=== PATIENT | female | born 1960 | race Caucasian/White ===

== ENCOUNTER → 2016-12-23 | Outpatient (CLI) | payer BC, MEDICARE ==
--- NOTE | 2016-12-23 17:59 | CT ---
EXAMINATION TYPE: CT chest wo con DATE OF EXAM: 12/23/2016 5:34 PM COMPARISON: NONE HISTORY: Shortness of breath and cough CT DLP: 837 mGycm Automated exposure control for dose reduction was used. FINDINGS: Heart size is normal. Thoracic aorta is atheromatous. There is no evidence of aortic aneurysm. There is no evidence of a hilar mass. There are a few mediastinal lymph nodes that measure up to 1 cm. The lungs are clear of consolidation. There is no sign of a pulmonary mass. There is some subpleural linear density in the periphery of both lungs and more on the right side consistent with scarring and subsegmental atelectasis. There is no discrete pulmonary nodule. Thoracic spine is intact. There are sternal wires. IMPRESSION: SUBSEGMENTAL ATELECTASIS AND SCARRING IN THE PERIPHERY OF BOTH LUNGS. NO PULMONARY MASS. MODERATE ATH EROSCLEROTIC VASCULAR DISEASE.
== END | disposition home or self-care (01) ==
LOC: RADCTMAIN 17:17
PROVIDERS: ATTEND Family Medicine
DX: J44.9 Chronic obstructive pulmonary disease, unspecified (principal); J98.11 Atelectasis
CPT/HCPCS: 71250

== ENCOUNTER → 2017-09-06 | Outpatient (CLI) | payer BC, MEDICARE ==
--- NOTE | 2017-09-06 15:40 | CT ---
EXAMINATION TYPE: CT abdomen wo con DATE OF EXAM: 09/06/2017 COMPARISON: NONE HISTORY: Abdomen pain. CT DLP: 655 mGycm Examination of the solid and hollow viscera is limited given the lack of contrast. FINDINGS: LUNG BASES: No evidence for nodule. No evidence for infiltrate. LIVER/GB: Small gallstones are noted. No evidence for wall thickening or pericholecystic fluid. No sp doris-occupying hepatic lesion. Scattered hepatic granulomas seen. PANCREAS: No pancreatic mass identified. No inflammatory process seen. SPLEEN: No evidence for splenomegaly. No intrasplenic lesions seen. ADRENALS: No adrenal nodules identified. No evidence for thickening. KIDNEYS: Renal vascular calcifications are identified. No evidence for renal mass. No nephrolithiasis . No hydronephrosis. BOWEL: Appendix has a normal appearance. No evidence of bowel obstruction. No inflammatory process. Lymph nodes: No evidence for adenopathy greater than 1 cm. Abdominal aorta: Aortic bypass graft in place. Other: No significant abnormality. IMPRESSION: 1. NO ACUTE INTRA-ABDOMINAL PROCESS TO ACCOUNT FOR THE PATIENT'S SYMPTOMS. 2. CHOLELITHIASIS WITHOUT WALL THICKENING.
== END | disposition home or self-care (01) ==
LOC: RADCTMAIN 15:10
PROVIDERS: ATTEND Family Medicine
DX: K80.20 Calculus of gallbladder without cholecystitis without obstruction (principal)
CPT/HCPCS: 74150

== ENCOUNTER → 2017-11-18 | Outpatient (CLI) | payer BC, MEDICARE ==
--- NOTE | 2017-11-18 16:04 | XR ---
EXAMINATION TYPE: XR chest 2V DATE OF EXAM: 11/18/2017 COMPARISON: 2017 CT chest HISTORY: Cough and fatigue TECHNIQUE: Frontal and lateral views of the chest are obtained. FINDINGS: There is no focal air space opacity, pleural effusion, or pneumothorax seen. Post-CABG ch anges are seen without cardiomegaly. The osseous structures are intact. IMPRESSION: No acute cardiopulmonary process.
== END | disposition home or self-care (01) ==
LOC: RADXRYALE 15:03
PROVIDERS: ATTEND Physician Assistant Medical
DX: R05 Cough (principal); R53.83 Other fatigue
CPT/HCPCS: 71046

== ENCOUNTER 2017-12-27 08:48 | Day surgery (SDC) | payer BC, MEDICARE ==
[2017-12-24 12:29] VITALS: BMI 38.6
[~2017-12-27 08:48] MED LIST: LACTATED RINGERS 1,000 ML IV SCH
[2017-12-27 09:13] LABS: Glucose,Whole Blood 109 mg/dL (75-99)
[2017-12-27 09:14] VITALS: TEMP 97.4
[2017-12-27] MEDS ORDERED: LIDOCAINE 1% 20 ML VIAL (10MG/ML) FOR IV START INTRADERMA ONE (09:15)
[2017-12-27] MEDS ORDERED: LIDOCAINE 1% INJ 10MG/ML (20 ML MDV) ONE (10:30)
[2017-12-27] MEDS ORDERED: GLYCOPYRROLATE 0.2 MG/ML 2 ML VIAL ONE (10:30)
[2017-12-27] MEDS ORDERED: PROPOFOL 10 MG/ML 20 ML VIAL IV ONE (10:30)
[2017-12-27 11:06] VITALS: RESP 16
--- NOTE | 2017-12-27 11:18 | P.PCN ---
Date of Procedure: 12/27/17 Procedure(s) Performed: Procedures: 1. Esophagogastroduodenoscopy and biopsy. 2. Total colonoscopy. Preoperative diagnosis: Epigastric pain and Hemoccult-positive stools. Postoperative diagnosis: 1. Very small sliding hiatal hernia with no obvious esophagitis or complicated reflux disease. 2. Mild antral gastritis. 3. Sigmoid diverticulosis. Preparation: HalfLytely prep. Sedation: Was provided by anesthesia. Brief clinical history: The patient is a 57-year-old female who is scheduled for this evaluation because of epigastric pain and finding of occult blood in her stools. The patient has no overt bleeding. She has no abdominal pains, change in bowel habits or other symptoms. She has no prior endoscopies. Procedure: With the patient on her left lateral decubitus position and after informed consent and adequate sedation, I passed the Olympus-GIF 160 video upper endoscope through the cricopharyngeus down the esophagus. GE junction was around 38 cm from the incisors and there was a very small sliding hiatal hernia with no obvious esophagitis or complicated reflux disease. The endoscope was then passed into the stomach which was insufflated with air and inspected in detail including the retroflex view in the cardia. There was some minimal mottling and erythema in the antrum but no ulcers or pyloric channel, duodenal bulb, post bulbar area and descending duodenum appeared within normal limits. I obtained biopsies from the duodenum, antrum and esophagus then the endoscope was withdrawn and I proceeded with the colonoscopy. Perianal area did not show any fissures or fistulas. There were no masses felt on digital rectal examination. The Olympus CFQ 160L video colonoscope was then inserted in the rectum in the usual fashion and advanced to the cecum. The colon appeared healthy with no edema, erythema, friability, ulceration, exudation or spontaneous bleeding. No polyps or tumors were seen. Multiple diverticular orifices were seen scattered in the sigmoid with no obvious evidence of diverticulitis or other pathology. I retroflexed the endoscope in the rectum before the endoscope was withdrawn. The patient tolerated the procedure well. Plan: The patient was reassured. Will await biopsy results. Discussed dietary measures. Consideration can be given for a small bowel study if she continues to manifest occult bleeding especially if there is evidence of anemia. She will follow-up with you as planned. I suggested repeat screening colonoscopy in 10 years.
[2017-12-27 11:37] LABS: Glucose,Whole Blood 73 mg/dL (75-99)
[2017-12-27 11:56] LABS: Glucose,Whole Blood 80 mg/dL (75-99)
[2017-12-27 12:14] VITALS: BP 172/74; PULSE 100
== END 2017-12-27 12:26 | disposition home or self-care (01) ==
LOC: ORWHC2ENDO 08:48
DX: K29.50 Unspecified chronic gastritis without bleeding (principal); K44.9 Diaphragmatic hernia without obstruction or gangrene; K57.30 Diverticulosis of large intestine without perforation or abscess without bleeding; I10 Essential (primary) hypertension; E78.5 Hyperlipidemia, unspecified; I25.10 Atherosclerotic heart disease of native coronary artery without angina pectoris; Z95.1 Presence of aortocoronary bypass graft; Z88.5 Allergy status to narcotic agent; Z88.0 Allergy status to penicillin; Z88.2 Allergy status to sulfonamides; J44.9 Chronic obstructive pulmonary disease, unspecified; F17.210 Nicotine dependence, cigarettes, uncomplicated; Z86.718 Personal history of other venous thrombosis and embolism; I73.9 Peripheral vascular disease, unspecified; Z79.4 Long term (current) use of insulin; Z79.899 Other long term (current) drug therapy; Z79.51 Long term (current) use of inhaled steroids
CPT/HCPCS: 88305; 45378; 43239; J2001; J2704

== ENCOUNTER 2018-05-18 12:04 | Day surgery (SDC) | payer BC, MEDICARE ==
[2018-05-11 12:07] VITALS: BMI 37.8
[~2018-05-18 12:04] MED LIST changes: +DEXAMETHASONE SOD PHOSPHATE 10 MG/ML 1 ML VIAL IV ONE; +HYDROmorphone 0.5 MG/0.5 ML SYRINGE IVP PRN; +LIDOCAINE 1% 20 ML VIAL (10MG/ML) FOR IV START INTRADERMA PRN; +MIDAZOLAM 2 MG/2 ML VIAL IV PRN; +ONDANSETRON 4 MG/2 ML VIAL IVP ONE; +SCOPOLAMINE 1.5MG/72HR PATCH TRANSDERM ONE; +ceFAZolin IN SWFI 2 GM/20 ML SYRINGE IVP ONE
[2018-05-18 12:59] LABS: Glucose,Whole Blood 118 mg/dL (75-99)
[2018-05-18] MEDS: HEPARIN SODIUM,PORCINE 5,000 UNIT/ML 1 ML VIAL SQ ONE ×2 (13:03→15:52)
--- NOTE | 2018-05-18 13:23 | P.GSHP ---
History of Present Illness H&P Date: 05/18/18 Chief Complaint: Right upper quadrant pain Esophageal 7-year-old female for from Dr. Bandar Samuels. 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 She's had complaints of pain her recent ultrasound shows evidence of cholelithiasis. Past Medical History Past Medical History: Coronary Artery Disease (CAD), COPD, Diabetes Mellitus, Deep Vein Thrombosis (DVT), Eye Disorder, Hyperlipidemia, Hypertension, Liver Disease, Musculoskeletal Disorder, Neurologic Disorder, Pulmonary Embolus (PE), Renal Disease Additional Past Medical History / Comment(s): HX DVT RT LEG, STAGE 3 KIDNEY DISEASE, CATARACTS, RUPTURED DISC L5,S1,GALLSTONES, PVD, NEUROPATHY, BALANCE ISSUES/FALLS, SEASONAL ALLERGIES, MIGRAINES, DDD C-7, DM HAS INSULIN PUMP. History of Any Multi-Drug Resistant Organisms: None Reported Past Surgical History: Back Surgery, Section, Coronary Bypass/CABG, Heart Catheterization Additional Past Surgical History / Comment(s): 06-20-15 HAD AORTA BIFEM BYPASS AT [facility] IN [place], 4 VESSEL CABG 2008, LUMBAR DISECTOMY. Past Anesthesia/Blood Transfusion Reactions: Family History of Problems w/ Anesthesia, Motion Sickness, Postoperative Nausea & Vomiting (PONV) Additional Past Anesthesia/Blood Transfusion Reaction / Comment(s): VERTIGO. "Sister was under too long, almost ." Past Psychological History: No Psychological Hx Reported Smoking Status: Current every day smoker Past Alcohol Use History: None Reported Additional Past Alcohol Use History / Comment(s): STARTED SMOKING AT AGE 15, SMOKES 1/2-1 PPD. Past Drug Use History: None Reported - Past Family History Brother(s) Family Medical History: CVA/TIA Father Family Medical History: COPD, Hypertension, Myocardial Infarction (HI) Mother Family Medical History: CVA/TIA, Deep Vein Thrombosis (DVT), Myocardial Infarction (HI) Additional Family Medical History / Comment(s): ANUERYSM Medications and Allergies Home Medications Medication Instructions Recorded Confirmed Type Fluticasone Nasal [place] [Flonase 2 spray INHALATION BID 07/18/15 05/18/18 History Nasal [place]] Insulin Aspart [NovoLOG] See Protocol SQ CONTINUOUS 07/18/15 05/18/18 History Metoprolol Succinate (ER) [Toprol 50 mg PO HS 07/18/15 05/18/18 History XL] Montelukast Sodium [Singulair] 10 mg PO HS 07/18/15 05/18/18 History Ramipril [Altace] 10 mg PO BID 07/18/15 05/18/18 History Simvastatin [Zocor] 40 mg PO HS 07/18/15 05/18/18 History Albuterol Sulfate [Proair Hfa] 1 - 2 puff INHALATION Q6HR PRN 09/20/17 05/18/18 History Aspirin 325 mg PO DAILY 09/20/17 05/18/18 History Beclomethasone Dipropionate [Qvar 2 puff INHALATION BID PRN 09/20/17 05/18/18 History 80 mcg] Fluticasone/Vilanterol [Breo 1 inhalation INHALATION DAILY PRN 09/20/17 History Ellipta 200-25 Mcg INH] rOPINIRole HCL [Requip] 0.5 mg PO HS 09/20/17 05/18/18 History Fexofenadine HCl [Christina Allergy] 180 mg PO DAILY 12/24/17 05/18/18 History Furosemide [Lasix] 20 mg PO DAILY PRN 12/24/17 05/18/18 History Potassium Chloride [Klor-Con 20] 10 meq PO DAILY PRN 12/24/17 05/18/18 History Ergocalciferol (Vitamin D2) 50,000 unit PO TU 05/11/18 05/18/18 History [Vitamin D2] Temazepam [Restoril] 15 mg PO HS PRN 05/11/18 05/18/18 History Allergies Allergy/AdvReac Type Severity Reaction Status Date / Time penicillin V Allergy BLISTERS Verified 05/18/18 12:30 ON HANDS AND FEET morphine AdvReac Nausea Verified 05/18/18 12:30 sulfamethoxazole AdvReac TOLD NOT Verified 05/18/18 12:30 [From Bactrim] TO TAKE BY KIDNEY trimethoprim [From Bactrim] AdvReac TOLD NOT Verified 05/18/18 12:30 TO TAKE BY KIDNEY Surgical - Exam Vital Signs Temp Pulse Resp BP Pulse Ox 98.5 F 83 16 133/63 95 05/18/18 13:01 05/18/18 13:01 05/18/18 13:01 05/18/18 13:05/18/18 13:01 - General well developed, no distress - Eyes PERRL - ENT normal pinna - Neck no masses - Respiratory normal expansion - Cardiovascular Rhythm: regular - Abdomen Abdomen: soft, non tender Results - Labs Abnormal Lab Results - Last 24 Hours (Table) 05/18/18 Range/Units 12:44 POC Glucose (mg/dL) 118 H (75-99) mg/dL Assessment and Plan Assessment: Cholelithiasis Quadrant pain We'll perform laparoscopic cholecystectomy
[2018-05-18] MEDS ORDERED: NEOSTIGMINE 1 MG/ML 10 ML VIAL ONE (13:58)
[2018-05-18] MEDS ORDERED: fentaNYL (PF) 50 MCG/ML 2 ML AMP ONE (13:58)
[2018-05-18] MEDS ORDERED: LABETALOL 5 MG/ML VIAL MDV ONE (13:58)
[2018-05-18] MEDS ORDERED: PROPOFOL 10 MG/ML 20 ML VIAL IV ONE (13:58)
[2018-05-18] MEDS ORDERED: MIDAZOLAM 2 MG/2 ML VIAL ONE (13:58)
[2018-05-18] MEDS ORDERED: LIDOCAINE 1% INJ 10MG/ML (20 ML MDV) ONE (13:58)
[2018-05-18] MEDS ORDERED: GLYCOPYRROLATE 0.2 MG/ML 2 ML VIAL ONE (13:58)
[2018-05-18] MEDS ORDERED: SUCCINYLCHOLINE CHLORIDE 100 MG/5 ML SYR IV ONE (13:58)
[2018-05-18] MEDS ORDERED: ROCURONIUM BROMIDE 10 MG/ML 10 ML VIAL IV ONE (13:58)
[2018-05-18] MEDS ORDERED: PHENYLEPHRINE-0.9% NACL SYG 1 MG/10 ML SYRINGE ONE (13:58)
[2018-05-18] MEDS ORDERED: BUPIVACAIN-EPI 0.5%-1:200,000 30 ML VIAL SQ ONE (14:16)
[2018-05-18] MEDS ORDERED: LACTATED RINGERS 1,000 ML IV ONE (14:30)
--- NOTE | 2018-05-18 14:47 | P.OP ---
Date of Procedure: 05/18/18 Preoperative Diagnosis: Cholecystitis Postoperative Diagnosis: Cholecystitis Procedure(s) Performed: Laparoscopic cholecystectomy Anesthesia: TIKA Surgeon: Huang Menezes Estimated Blood Loss (ml): 5 Pathology: other (Gallbladder) Condition: stable Disposition: PACU Description of Procedure: The patient was placed on the operating table. The patient received a general endotracheal tube anesthesia. The patients abdomen was prepped and draped in the usual sterile fashion. Through an infraumbilical stab incision, the fascia of the anterior abdominal wall was grasped with a pair of Kochers and then the Veress needle was placed in the peritoneal cavity. Position of the Veress needle was confirmed with positive drop test. The abdomen was then insufflated. After adequate insufflation, the 10 mm trocar was placed in the peritoneal cavity. Following this the laparoscope was placed in the peritoneal cavity. The patient was placed in the head-up, right side up position and then a 5 mm trocar was placed in the right lateral and right subcostal position under direct visualization. A 8 mm trocar was placed in the epigastric position. The gallbladder was grasped in the fundus and infundibulum. Traction on the gallbladder was placed in the lateral and the cephalad positions. The triangle of Calot was visualized.. The cystic duct was bluntly dissected until the union of the cystic duct and common bile duct was seen. The cystic duct was then divided and sealed with the Harmonic scissors. A PDS Endoloop was then placed throughout the cystic duct stump. The cystic artery divided and sealed with the Harmonic scissors. The gallbladder was then removed from the liver bed using Harmonic scissors. The gallbladder was then extracted through the epigastric port site. Operative field was checked for any bleeding spots and Harmonic scissors was used to coagulate the liver bed. The abdomen was irrigated. The trocars were removed. The skin was closed using interrupted 3-0 Vicryl suture. Dermabond dressing were applied. The patient tolerated the procedure well.
[2018-05-18] MEDS ORDERED: INSULIN ASPART 100 UNIT/ML 1 ML 10 ML VIAL SQ ONE (15:32)
[2018-05-18] MEDS ORDERED: IPRATROPIUM-ALBUTEROL 3 ML NEB INHALATION STA ×2 (15:34→15:55)
[2018-05-18 15:37] LABS: Glucose,Whole Blood 246 mg/dL (75-99)
[2018-05-18 16:10] VITALS: TEMP 98
[2018-05-18 16:56] VITALS: RESP 18
[2018-05-18 17:08] LABS: Glucose,Whole Blood 235 mg/dL (75-99)
[2018-05-18 17:12] VITALS: PULSE 78
[2018-05-18 17:33] VITALS: BP 123/78
== END 2018-05-18 17:49 | disposition home or self-care (01) ==
LOC: OR 12:04
PROVIDERS: ATTEND Surgery
DX: K80.10 Calculus of gallbladder with chronic cholecystitis without obstruction (principal); I25.10 Atherosclerotic heart disease of native coronary artery without angina pectoris; J44.9 Chronic obstructive pulmonary disease, unspecified; E78.5 Hyperlipidemia, unspecified; K76.9 Liver disease, unspecified; I12.9 Hypertensive chronic kidney disease with stage 1 through stage 4 chronic kidney disease, or unspecified chronic kidney disease; E11.22 Type 2 diabetes mellitus with diabetic chronic kidney disease; N18.3 Chronic kidney disease, stage 3 (moderate); E11.40 Type 2 diabetes mellitus with diabetic neuropathy, unspecified; E11.51 Type 2 diabetes mellitus with diabetic peripheral angiopathy without gangrene; I73.9 Peripheral vascular disease, unspecified; H26.9 Unspecified cataract; R29.6 Repeated falls; G43.909 Migraine, unspecified, not intractable, without status migrainosus; M50.30 Other cervical disc degeneration, unspecified cervical region; M51.27 Other intervertebral disc displacement, lumbosacral region; F17.210 Nicotine dependence, cigarettes, uncomplicated; Z96.41 Presence of insulin pump (external) (internal); Z95.1 Presence of aortocoronary bypass graft; Z79.82 Long term (current) use of aspirin; Z79.51 Long term (current) use of inhaled steroids; Z79.899 Other long term (current) drug therapy; Z79.4 Long term (current) use of insulin; Z86.711 Personal history of pulmonary embolism; Z86.718 Personal history of other venous thrombosis and embolism; Z88.0 Allergy status to penicillin; Z88.1 Allergy status to other antibiotic agents; Z88.5 Allergy status to narcotic agent; Z88.2 Allergy status to sulfonamides
CPT/HCPCS: 94640 ×2; 94002; 47562; J2250; J1644; J1100; J2710; J2405; J2001; J3010; J2370; J0330; J2704; J1170; 88304

== ENCOUNTER 2018-11-03 14:31 | Inpatient (IN) | payer BC, MEDICARE ==
[2018-11-03 16:21] LABS: Anisocytosis Slight; Basophils % (A) 0 %; Eosinophils # (A) 0.3 k/uL (0-0.7); Eosinophils % (A) 2 %; HCT 33.4 % (34.0-46.0); HGB 9.7 gm/dL (11.4-16.0); Hypochromasia Marked; Lymphocytes # (A) 2.2 k/uL (1.0-4.8); Lymphocytes % (A) 19 %; MCH 27.5 pg (25.0-35.0); MCV 94.8 fL (80.0-100.0); Mean Platelet Volume 7.5; Monocytes # (A) 0.5 k/uL (0-1.0); Monocytes % (A) 5 %; Neutrophils # (A) 8.1 k/uL (1.3-7.7); Neutrophils % (A) 71 %; Platelet Count 322 k/uL (150-450); Poikilocytosis Slight; RBC 3.52 m/uL (3.80-5.40); RDW 16.5 % (11.5-15.5); WBC 11.4 k/uL (3.8-10.6)
[2018-11-03 16:30] LABS: Albumin 2.8 g/dL (3.5-5.0); Calcium 8.1 mg/dL (8.4-10.2); Potassium 4.8 mmol/L (3.5-5.1); Total Bilirubin 0.3 mg/dL (0.2-1.3); Total Protein 5.4 g/dL (6.3-8.2)
[2018-11-03 17:03] LABS: Glucose,Whole Blood 187 mg/dL (75-99)
--- NOTE | 2018-11-03 17:58 | XR ---
EXAMINATION TYPE: XR chest 1V portable DATE OF EXAM: 11/03/2018 COMPARISON: 02/19/2016 HISTORY: Hypoxemia. Difficulty breathing. TECHNIQUE: Single frontal view of the chest is obtained. FINDINGS: There is mild blunting of the costophrenic angles. Heart is top normal in size. There is n o gross heart failure. There are sternal wires. Lungs appear clear of consolidation. IMPRESSION: New small pleural effusions compared to old exam. No gross heart failure.
[2018-11-03] MEDS ORDERED: FUROSEMIDE 10 MG/ML 2 ML VIAL IV ONE (18:00)
[2018-11-03] MEDS ORDERED: ACETAMINOPHEN TAB 325 MG TAB PO PRN (19:02)
[2018-11-03] MEDS ORDERED: LORATADINE-PSEUDOEPH 5-120 MG 1 EACH TAB.ER.12H PO PRN (19:02)
[2018-11-03 20:32] LABS: Appearance,Urine Clear (Clear); Bilirubin,Urine Negative (Negative); Blood,Urine Trace (Negative); Color,Urine Colorless; Glucose,Urine (UA) Trace (Negative); Ketones,Urine Negative (Negative); Leukocyte Esterase,Urine Negative (Negative); Nitrite,Urine Negative (Negative); Protein,Urine 2+ (Negative); RBC,Urine <1 /hpf (0-5); Specific Gravity,Urine 1.005 (1.001-1.035); Squamous Epithelial Cell,Urine <1 /hpf (0-4); Urobilinogen,Urine <2.0 mg/dL (<2.0)
[2018-11-03 20:52] LABS: Glucose,Whole Blood 91 mg/dL (75-99)
[2018-11-03] MEDS: LISINOPRIL 20 MG TAB PO SCH (20:53)
[2018-11-03] MEDS: MONTELUKAST 10 MG TAB PO SCH (20:53)
[2018-11-03] MEDS: PRAVASTATIN SODIUM 20 MG TAB PO SCH (20:53)
[2018-11-03] MEDS: INSULIN ASPART (NovoLOG) 100 UNIT/ML VIAL SQ SCH (20:54)
--- NOTE | 2018-11-03 20:56 | NM ---
EXAMINATION TYPE: NM pul vent and perfuse DATE OF EXAM: 11/03/2018 COMPARISON: NONE HISTORY: Elevated d-dimer. Chest pain. TECHNIQUE: Utilizing inhalation of 69.6 mCi Tc 99m DTPA aerosol and intravenous injection of 5.2 mCi of Tc 99m MAA, ventilation and perfusion images are acquired post injection in multiple projections. FINDINGS: There are multiple matching segmental type defects in both lungs and more noticeable in the anterior segment of the right upper lobe and all the segments of the left lower lobe. There is also a matching defect posterior basal segment right lower lobe. There is no ventilation/perfusion mismatch. The jozef st x-ray shows no pulmonary consolidation. IMPRESSION: Numerous matching segmental sized defects correspond to intermediate probability of pulmonary embolis m and bilateral airway disease.
[2018-11-03] MEDS ORDERED: INSULIN ASPART (NovoLOG) 100 UNIT/ML VIAL SQ SCH (21:00)
[2018-11-03] MEDS: ZOLPIDEM 5 MG TAB PO PRN (21:26)
[2018-11-03] MEDS: Omega-3 Acid Ethyl Esters [Lovaza] 2 GM PO SCH (21:27)
[2018-11-03] MEDS: HEPARIN SODIUM,PORCINE 5,000 UNIT/ML 1 ML VIAL SQ SCH (22:05)
[2018-11-03] MEDS: CALCIUM CARBONATE 500 MG CHEWABLE PO PRN (23:30)
--- NOTE | 2018-11-04 00:46 | CT ---
EXAMINATION TYPE: CT chest wo con DATE OF EXAM: 11/04/2018 COMPARISON: 12/23/2016 HISTORY: Short of breath CT DLP: mGycm. Automated Exposure Control for Dose Reduction was Utilized. TECHNIQUE: CT scan of the thorax is performed without IV contrast. FINDINGS: There are bilateral pleural effusions. Heart is enlarged. There are no hilar masses. There are paratr acheal lymph nodes that measure up to 1.8 cm. There is coronary artery calcification. There is athero sclerotic calcification in the thoracic aorta. I see no hilar mass. Thoracic aorta shows no evidence of aneurysm. The bony thorax is intact. There are sternal wires. IMPRESSION: There is cardiomegaly and bilateral pleural effusions that is new compared to old CT scan . This could relate to congestive heart failure. There are enlarged paratracheal lymph nodes not sign ificantly different than old exam. Atherosclerotic vascular disease. No suspicious pulmonary mass. Mi nimal atelectasis at the lung bases.
[2018-11-04 01:56] LABS: Glucose,Whole Blood 260 mg/dL (75-99)
[2018-11-04] MEDS: INSULIN ASPART (NovoLOG) 100 UNIT/ML VIAL SQ SCH ×5 (01:57→21:36)
[2018-11-04 05:33] LABS: Anisocytosis Slight; Basophils # (A) 0.1 k/uL (0-0.2); Basophils % (A) 1 %; Eosinophils # (A) 0.2 k/uL (0-0.7); Eosinophils % (A) 3 %; Hypochromasia Marked; Lymphocytes # (A) 1.8 k/uL (1.0-4.8); Lymphocytes % (A) 22 %; MCH 26.7 pg (25.0-35.0); MCHC 28.2 g/dL (31.0-37.0); MCV 94.8 fL (80.0-100.0); Mean Platelet Volume 6.7; Monocytes # (A) 0.4 k/uL (0-1.0); Monocytes % (A) 5 %; Neutrophils # (A) 5.4 k/uL (1.3-7.7); Neutrophils % (A) 67 %; Platelet Count 327 k/uL (150-450); RBC 3.38 m/uL (3.80-5.40); RDW 16.1 % (11.5-15.5); WBC 7.9 k/uL (3.8-10.6)
[2018-11-04 05:45] LABS: Albumin 2.6 g/dL (3.5-5.0); Calcium 8.4 mg/dL (8.4-10.2); Potassium 5.6 mmol/L (3.5-5.1); Total Bilirubin 0.3 mg/dL (0.2-1.3)
[2018-11-04 05:53] LABS: Hemoglobin A1C 7.8 % (4.0-6.0)
[2018-11-04] MEDS ORDERED: FUROSEMIDE 10 MG/ML 4 ML VIAL IV SCH ×2 (06:00→16:00)
[2018-11-04 06:09] LABS: Glucose,Whole Blood 204 mg/dL (75-99)
[2018-11-04] MEDS: HEPARIN SODIUM,PORCINE 5,000 UNIT/ML 1 ML VIAL SQ SCH (06:28)
[2018-11-04] MEDS: FLUTICASONE 110 MCG INHALER INHALATION SCH ×2 (08:12→20:50)
[2018-11-04] MEDS ORDERED: HEPARIN SODIUM,PORCINE 5,000 UNIT/ML 1 ML VIAL SQ SCH (09:24)
--- NOTE | 2018-11-04 11:18 | CONS ---
HILARIA Curtis is a 58-year-old lady with history of dyslipidemia, insulin-requiring diabetes, hypertension, who has primary care physician's in [facility] was admitted to hospital with nausea, abdominal fullness and not being able to the eat for several days around Christmastime, not clear exactly what workup she had, went home, she was not feeling well, comes back to the ER and gets admitted. She complains of leg edema and shortness of breath, but her predominant symptom is not feeling well, epigastric fullness, etc. I do not have any recent workup on her. She denies chest pain, paroxysmal nocturnal dyspnea or orthopnea. She has known coronary artery disease and has had prior bypass surgery. She also has extensive peripheral vascular disease and underwent AAA repair and bilateral iliac artery graft placement. On this admission, she underwent a troponin. They came back elevated at 1.5 and 1.6 due to which Cardiology had been consulted. I do not have any EKGs on this admission. The troponin elevation is probably related to renal insufficiency. The patient's BUN is 46, creatinine is 3.1 and most of her symptoms are probably related to this. She is also anemic. PAST MEDICAL HISTORY: Past medical history is significant for coronary artery disease, status post CABG, hypertension, dyslipidemia. MEDICATIONS: Current medications include Altace 10 mg b.i.d., pravastatin 20 mg daily, Lovaza, Singulair, Toprol-XL 50 mg daily, insulin, iron, Qvar, aspirin, ProAir. ALLERGIES: Allergies to PENICILLIN, MORPHINE, BACTRIM. FAMILY HISTORY: Family history is negative for premature coronary artery disease. SOCIAL HISTORY: Social history is negative for current smoking, EtOH abuse, or drug abuse. REVIEW OF SYSTEMS: HEENT is unremarkable. CARDIAC: As described above. RESPIRATORY: As described above. GI: As described above. GENITOURINARY: As described above. PSYCHOSOCIAL: Negative. ENDOCRINE: Negative. HEMATOLOGIC: Negative. DERM: Negative. CONSTITUTIONAL: As describe above. Rest of the system review is not relevant. PHYSICAL EXAMINATION: On exam, patient is comfortable at rest. Heart rate is 88 beats per minute. Blood pressure is 112/56, respiratory rate is 18. Chest exam reveals diminished air entry at the bases. Heart exam reveals first and second heart sounds. No gallop. Has a systolic murmur at the left lower sternal border. Abdomen is soft. Examination of extremities reveals bilateral 2+ pitting edema. LABS: Labs show a hemoglobin of 9, platelet count is 327. Potassium is 5.6. BUN is 46, creatinine is 3.1. Troponins are elevated at 1.5 and 1.6. ASSESSMENT: 1. Elevated troponin probably related to renal failure. 2. Chronic severe renal failure. 3. Coronary artery disease, status post coronary artery bypass grafting. PLAN: We will consult Nephrology. I agree with the IV Lasix. Continue the Toprol-XL, Pravachol, aspirin. Will hold the Zestril unless Nephrology thinks otherwise. We will obtain a 2D echo to assess LV function. We will try and get hold of her records from the other end. [id number] / IJN: [id number] /
[2018-11-04 11:27] LABS: Glucose,Whole Blood 209 mg/dL (75-99)
--- NOTE | 2018-11-04 11:34 | ECHOF ---
Referral Reason:elevated BNP MEASUREMENTS -------- HEIGHT: 162.6 cm WEIGHT: 81.7 kg BP: 179/81 RVIDd: 3.5 cm (< 3.3) IVSd: 1.4 cm (0.6 - 1.1) LVIDd: 4.7 cm (3.9 - 5.3) LVPWd: 1.4 cm (0.6 - 1.1) IVSs: 1.8 cm LVIDs: 3.8 cm LVPWs: 1.9 cm LA Diam: 4.1 cm (2.7 - 3.8) LAESV Index (A-L): 32.88 ml/m Ao Diam: 3.0 cm (2.0 - 3.7) AV Cusp: 1.3 cm (1.5 - 2.6) MV EXCURSION: 21.171 mm (> 18.000) MV EF SLOPE: 72 mm/s (70 - 150) EPSS: 1.4 cm MV E Alfred: 1.17 m/s MV DecT: 157 ms MV A Alfred: 0.64 m/s MV E/A Ratio: 1.83 AV maxP.50 mmHg AV meanP.62 mmHg RAP: 15.00 mmHg RVSP: 64.07 mmHg FINDINGS -------- Sinus rhythm. This was a technically difficult study with suboptimal views. The left ventricular size is normal. There is moderate concentric left ventricular hypertrophy. O verall left ventricular systolic function is moderately impaired with, an EF between 35 - 40 %. Bas al lateral LV wall motion is hypokinetic. Basal inferior LV wall motion is hypokinetic. Mid lat eral LV wall motion is hypokinetic. Mid inferior LV wall motion is hypokinetic. The right ventricle is mildly enlarged. LA is midly dilated 29-33ml/m2. The right atrium is normal in size. 5.0mg OF Lumason UTLIZED: 2 OR MORE WALL SEGMENTS NOT VISUALIZED. There is mild aortic valve sclerosis. There is mild aortic stenosis present. Peak/mean gradient a cross the Aortic Valve is 23.50mmHg / 12.62mmHg. Mild mitral annular calcification present. Mild mitral regurgitation is present. Moderate tricuspid regurgitation present. There is severe pulmonary hypertension. The right ventr icular systolic pressure, as measured by Doppler, is 64.07mmHg. Trace/mild (physiologic) pulmonic regurgitation. The aortic root size is normal. The inferior vena cava is dilated with poor inspiratory collapse which is consistent with estimated r ight atrial pressure of 15 mmHg. There is no pericardial effusion. CONCLUSIONS -------- 1. Sinus rhythm. 2. This was a technically difficult study with suboptimal views. 3. The left ventricular size is normal. 4. There is moderate concentric left ventricular hypertrophy. 5. Overall left ventricular systolic function is moderately impaired with, an EF between 35 - 40 %. 6. Basal lateral LV wall motion is hypokinetic. 7. Basal inferior LV wall motion is hypokinetic. 8. Mid lateral LV wall motion is hypokinetic. 9. Mid inferior LV wall motion is hypokinetic. 10. The right ventricle is mildly enlarged. 11. LA is midly dilated 29-33ml/m2. 12. 5.0mg OF Lumason UTLIZED: 2 OR MORE WALL SEGMENTS NOT VISUALIZED. 13. There is mild aortic valve sclerosis. 14. There is mild aortic stenosis present. 15. Peak/mean gradient across the Aortic Valve is 23.50mmHg / 12.62mmHg. 16. Mild mitral annular calcification present. 17. Mild mitral regurgitation is present. 18. Moderate tricuspid regurgitation present. 19. There is severe pulmonary hypertension. 20. Trace/mild (physiologic) pulmonic regurgitation. 21. The aortic root size is normal. 22. The inferior vena cava is dilated with poor inspiratory collapse which is consistent with estimat ed right atrial pressure of 15 mmHg. 23. There is no pericardial effusion. ASSEMBLY INSPECTOR: Monica Leiva RDCS
[2018-11-04] MEDS: Omega-3 Acid Ethyl Esters [Lovaza] 2 GM PO SCH (12:10)
[2018-11-04] MEDS: LISINOPRIL 20 MG TAB PO SCH (12:15)
[2018-11-04] MEDS: ERGOCALCIFEROL 50,000 UNIT CAP PO SCH (12:15)
[2018-11-04] MEDS: ASPIRIN 325 MG TAB PO SCH (12:15)
[2018-11-04] MEDS: FERROUS SULFATE 325 MG TAB PO SCH (12:16)
[2018-11-04] MEDS: CALCIUM CARBONATE 500 MG CHEWABLE PO PRN (12:21)
--- NOTE | 2018-11-04 12:30 | US ---
EXAMINATION TYPE: US venous doppler duplex LE DATE OF EXAM: 11/04/2018 8:22 AM COMPARISON: US 2016 CLINICAL HISTORY: possible PE. History of right leg DVT, patient states no leg pain or swelling, exam done portable. SIDE PERFORMED: Bilateral TECHNIQUE: The lower extremity deep venous system is examined utilizing real time linear array sonog jim with graded compression, doppler sonography and color-flow sonography. VESSELS IMAGED: External Iliac Vein (EIV) Common Femoral Vein Deep Femoral Vein Greater Saphenous Vein * Femoral Vein Popliteal Vein Small Saphenous Vein * Proximal Calf Veins (* superficial vessels) Difficult and limited study due to patient body habitus Right Leg: Appears positive for DVT proximal popliteal vein through proximal calf veins, partial com pression and flow seen Left Leg: Appears negative for DVT IMPRESSION: 1. Right lower extremity deep venous thrombosis within the popliteal and proximal calf veins. 2. Left lower extremity negative for deep venous thrombosis. A Red level critical message alert has been initiated for Bharathi Gordillo via the [facility] Critical Results System on 11/04/2018 12:28 PM. This message alert has been sent to Bharathi Gordillo via the [employer] provided by the clinician for the receipt of Radiology Critical Findings. Message ID [id number].
--- NOTE | 2018-11-04 13:32 | CONS ---
CONSULTATION ADDENDUM: Kirsten is a 58-year-old lady who was admitted to hospital with leg edema, shortness of breath, nausea, and not feeling well. I got hold of some of her records from her recent hospitalization. Her EKG showed significant ST-T wave changes, which have become somewhat worse on this admission. She did not have an echo at that time. An echocardiogram we performed on this admission shows a moderately impaired LV function with ejection fraction of 35% with evidence of prior extensive inferior and inferolateral myocardial infarction. The patient has mild aortic stenosis and severe pulmonary hypertension. She also has moderate tricuspid regurgitation. She is currently on Lasix 40 b.i.d. I will increase the dose of Lasix and adjust the treatments as needed. MMODL / IJN: [id number] /
--- NOTE | 2018-11-04 13:58 | P.NPCON ---
History of Present Illness - Reason for Consult acute renal failure, chronic renal failure - History of Present Illness Reason for consultation: Acute kidney injury on chronic kidney disease History of present illness: Patient is a 58-year-old female seen in renal consultation for acute kidney injury on chronic kidney disease. Patient has chronic kidney disease stage IV with baseline creatinine near 3 according to the patient. Patient follows with a bitumastic applier out of [facility]. Etiology is diabetic kidney disease and nephrosclerosis. Patient presented to the hospital with worsening dyspnea and edema. Patient states she's been getting progressively short of breath over the last 1 week. She initially thought it was asthma but the symptoms did not improve with nebulized treatments. She also noticed edema in her legs. She states she does not take any diuretics at home. She admits to good urine output. No hematuria or dysuria. No vomiting or diarrhea. Oral intake has been fair. Denies use of NSAIDs. Chest CT revealed bilateral pleural effusions. Echocardiogram revealed ejection fraction of 35-40% with severe pulmonary hypertension. Currently maintained on Lasix 40 mg IV twice daily. She has been voiding. No fever or chills. Vital signs are stable. General: The patient appeared well nourished and normally developed. HEENT: Head exam is unremarkable. Neck is without jugular venous distension. LUNGS: Breath sounds decreased. HEART: Rate and Rhythm are regular. First and second heart sounds normal. No murmurs, rubs or gallops. ABDOMEN: Abdominal exam reveals normal bowel sounds. Non-tender and non- distended. No evidence of peritonitis. EXTREMITITES: 2+ edema. Past Medical History Past Medical History: Coronary Artery Disease (CAD), COPD, Diabetes Mellitus, Deep Vein Thrombosis (DVT), Eye Disorder, Hyperlipidemia, Hypertension, Liver Disease, Musculoskeletal Disorder, Neurologic Disorder, Pulmonary Embolus (PE), Renal Disease Additional Past Medical History / Comment(s): HX DVT RT LEG, STAGE 3 KIDNEY DISEASE, CATARACTS, RUPTURED DISC L5,S1,GALLSTONES, PVD, NEUROPATHY, BALANCE ISSUES/FALLS, SEASONAL ALLERGIES, MIGRAINES, DDD C-7, DM HAS INSULIN PUMP. History of Any Multi-Drug Resistant Organisms: None Reported Past Surgical History: Back Surgery, Section, Coronary Bypass/CABG, Heart Catheterization Additional Past Surgical History / Comment(s): 06-20-15 HAD AORTA BIFEM BYPASS AT [facility] IN [place], 4 VESSEL CABG 2009, LUMBAR DISECTOMY. Past Anesthesia/Blood Transfusion Reactions: Family History of Problems w/ Anesthesia, Motion Sickness, Postoperative Nausea & Vomiting (PONV) Additional Past Anesthesia/Blood Transfusion Reaction / Comment(s): VERTIGO. "Sister was under too long, almost ." Smoking Status: Former smoker - Past Family History Brother(s) Family Medical History: CVA/TIA Father Family Medical History: COPD, Hypertension, Myocardial Infarction (MS) Mother Family Medical History: CVA/TIA, Deep Vein Thrombosis (DVT), Myocardial Infarction (MS) Additional Family Medical History / Comment(s): ANUERYSM Medications and Allergies Home Medications Medication Instructions Recorded Confirmed Type Metoprolol Succinate (ER) [Toprol 50 mg PO DAILY@1600 07/18/15 11/03/18 History XL] Montelukast Sodium [Singulair] 10 mg PO HS 07/18/15 11/03/18 History Ramipril [Altace] 10 mg PO BID 07/18/15 11/03/18 History Albuterol Sulfate [Proair Hfa] 1 - 2 puff INHALATION RT-QID PRN 09/20/17 History Aspirin 325 mg PO DAILY 09/20/17 11/03/18 History Beclomethasone Dipropionate [Qvar 2 puff INHALATION RT-BID 09/20/17 11/03/18 History 80 mcg] Ergocalciferol (Vitamin D2) 50,000 unit PO FR 05/11/18 11/03/18 History [Vitamin D2] Acetaminophen Tab [Tylenol Tab] 650 mg PO Q6H PRN 11/03/18 11/03/18 History Cetirizine HCl/Pseudoephedrine 1 tab PO DAILY PRN 11/03/18 11/03/18 History [Zyrtec-D Tablet] Ferrous Sulfate [Feosol] 650 mg PO DAILY 11/03/18 11/03/18 History Insulin Aspart (For Pump) [NovoLOG 0.01 unit SQ-PUMP CONTINUOUS 11/03/18 History (For Pump)] [place]-3 Acid Ethyl Esters [Lovaza] 2 gm PO BID 11/03/18 11/03/18 History Pravastatin Sodium [Pravachol] 20 mg PO HS 11/03/18 11/03/18 History Allergies Allergy/AdvReac Type Severity Reaction Status Date / Time penicillin V Allergy BLISTERS Verified 11/03/18 15:59 ON HANDS AND FEET morphine AdvReac Nausea Verified 11/03/18 15:59 sulfamethoxazole AdvReac TOLD NOT Verified 11/03/18 15:59 [From Bactrim] TO TAKE BY KIDNEY trimethoprim [From Bactrim] AdvReac TOLD NOT Verified 11/03/18 15:59 TO TAKE BY KIDNEY Physical Exam Vitals: Vital Signs Temp Pulse Resp BP Pulse Ox 11/04/18 11:27 96.9 F L 85 20 126/60 93 L 11/04/18 08:00 98.6 F 88 20 112/56 96 11/04/18 04:00 98.2 F 71 20 118/53 94 L 11/04/18 00:00 98.3 F 85 22 101/50 95 11/03/18 20:40 89 23 11/03/18 20:00 98.5 F 89 23 163/73 94 L 11/03/18 19:01 97.7 F 94 20 135/63 94 L 11/03/18 15:52 97.3 F L 92 18 179/81 98 Intake and Output 11/03/18 11/04/18 11/04/18 22:59 06:59 14:59 Intake Total 500 222 Balance 500 222 Intake: Oral 500 222 Other: Voiding Method Toilet Toilet # Voids 650 Weight 82 kg Results - Lab Results Most recent lab results Calcium 8.4 mg/dL (8.4-10.2) 11/04/18 05:22 11/04/18 05:22 11/04/18 05:22 Assessment and Plan Plan: Assessment: 1. Acute kidney injury mostly prerenal secondary to cardiorenal syndrome. Creatinine 3.18 today. Rule out urinary retention. 2. Chronic kidney disease stage IV secondary to diabetic kidney disease and nephrosclerosis with baseline creatinine near 3 according to the patient. Patient follows with a bitumastic applier out of [place]. 3. Systolic CHF with ejection fraction of 30-35% with severe pulmonary hypertension and moderate tricuspid regurgitation. 4. Volume overload. 5. Hypervolemic hyponatremia. 6. Hyperkalemia secondary to acute kidney injury and lisinopril. 7. Diabetes mellitus. 8. Hypertension with chronic kidney disease. Controlled. Plan: Increase Lasix to 60 mg IV twice daily. 1500 mL fluid restriction and low-salt diet. Check renal ultrasound. Check postvoid residual to make sure no underlying urinary retention. Hold lisinopril for now. Repeat electrolytes in the morning. Thank you for the consultation. I will continue to follow the patient with you during her hospital stay.
[2018-11-04] MEDS ORDERED: HEPARIN SODIUM,PORCINE 10,000 UNIT/ML 1 ML VIAL IV ONE (14:18)
[2018-11-04] MEDS ORDERED: HEPARIN SODIUM,PORCINE 5,000 UNIT/ML 1 ML VIAL IV PRN (14:18)
--- NOTE | 2018-11-04 15:02 | P.CNPUL ---
History of Present Illness Consult date: 11/04/18 Reason for consult: dyspnea, cough, chest pain, pulmonary embolism, DVT, obstructive sleep apnea Chief complaint: Shortness of breath cough and hypoxia History of present illness: Patient presented to the hospital with worsening dyspnea and edema. Patient states she's been getting progressively short of breath over the last 1 week. She initially thought it was asthma but the symptoms did not improve with nebulized treatments. She also noticed edema in her legs. She states she does not take any diuretics at home. She admits to good urine output. No hematuria or dysuria. No vomiting or diarrhea. Oral intake has been fair. Denies use of NSAIDs. Chest CT revealed bilateral pleural effusions. Echocardiogram revealed ejection fraction of 35-40% with severe pulmonary hypertension. Currently maintained on Lasix 40 mg IV twice daily. She has been voiding. No fever or chills. Her duplex ultrasound of the lower extremity came back positive for DVT patient is now being started on IV heparin Review of Systems All systems: negative Past Medical History Past Medical History: Coronary Artery Disease (CAD), COPD, Diabetes Mellitus, Deep Vein Thrombosis (DVT), Eye Disorder, Hyperlipidemia, Hypertension, Liver Disease, Musculoskeletal Disorder, Neurologic Disorder, Pulmonary Embolus (PE), Renal Disease Additional Past Medical History / Comment(s): HX DVT RT LEG, STAGE 3 KIDNEY DISEASE, CATARACTS, RUPTURED DISC L5,S1,GALLSTONES, PVD, NEUROPATHY, BALANCE ISSUES/FALLS, SEASONAL ALLERGIES, MIGRAINES, DDD C-7, DM HAS INSULIN PUMP. History of Any Multi-Drug Resistant Organisms: None Reported Past Surgical History: Back Surgery, Section, Coronary Bypass/CABG, Heart Catheterization Additional Past Surgical History / Comment(s): 06-20-15 HAD AORTA BIFEM BYPASS AT [facility], 4 VESSEL CABG 2008, LUMBAR DISECTOMY. Past Anesthesia/Blood Transfusion Reactions: Family History of Problems w/ Anesthesia, Motion Sickness, Postoperative Nausea & Vomiting (PONV) Additional Past Anesthesia/Blood Transfusion Reaction / Comment(s): VERTIGO. "Sister was under too long, almost ." Smoking Status: Former smoker - Past Family History Brother(s) Family Medical History: CVA/TIA Father Family Medical History: COPD, Hypertension, Myocardial Infarction (ID) Mother Family Medical History: CVA/TIA, Deep Vein Thrombosis (DVT), Myocardial Infarction (ID) Additional Family Medical History / Comment(s): ANUERYSM Medications and Allergies Home Medications Medication Instructions Recorded Confirmed Type Metoprolol Succinate (ER) [Toprol 50 mg PO DAILY@1600 07/18/15 11/03/18 History XL] Montelukast Sodium [Singulair] 10 mg PO HS 07/18/15 11/03/18 History Ramipril [Altace] 10 mg PO BID 07/18/15 11/03/18 History Albuterol Sulfate [Proair Hfa] 1 - 2 puff INHALATION RT-QID PRN 09/20/17 History Aspirin 325 mg PO DAILY 09/20/17 11/03/18 History Beclomethasone Dipropionate [Qvar 2 puff INHALATION RT-BID 09/20/17 11/03/18 History 80 mcg] Ergocalciferol (Vitamin D2) 50,000 unit PO FR 05/11/18 11/03/18 History [Vitamin D2] Acetaminophen Tab [Tylenol Tab] 650 mg PO Q6H PRN 11/03/18 11/03/18 History Cetirizine HCl/Pseudoephedrine 1 tab PO DAILY PRN 11/03/18 11/03/18 History [Zyrtec-D Tablet] Ferrous Sulfate [Feosol] 650 mg PO DAILY 11/03/18 11/03/18 History Insulin Aspart (For Pump) [NovoLOG 0.01 unit SQ-PUMP CONTINUOUS 11/03/18 History (For Pump)] [place]-3 Acid Ethyl Esters [Lovaza] 2 gm PO BID 11/03/18 11/03/18 History Pravastatin Sodium [Pravachol] 20 mg PO HS 11/03/18 11/03/18 History Allergies Allergy/AdvReac Type Severity Reaction Status Date / Time penicillin V Allergy BLISTERS Verified 11/03/18 15:59 ON HANDS AND FEET morphine AdvReac Nausea Verified 11/03/18 15:59 sulfamethoxazole AdvReac TOLD NOT Verified 11/03/18 15:59 [From Bactrim] TO TAKE BY KIDNEY trimethoprim [From Bactrim] AdvReac TOLD NOT Verified 11/03/18 15:59 TO TAKE BY KIDNEY Physical Exam Vitals: Vital Signs Temp Pulse Resp BP Pulse Ox 11/04/18 11:27 96.9 F L 85 20 126/60 93 L 11/04/18 08:00 98.6 F 88 20 112/56 96 11/04/18 04:00 98.2 F 71 20 118/53 94 L 11/04/18 00:00 98.3 F 85 22 101/50 95 11/03/18 20:40 89 23 11/03/18 20:00 98.5 F 89 23 163/73 94 L 11/03/18 19:01 97.7 F 94 20 135/63 94 L 11/03/18 15:52 97.3 F L 92 18 179/81 98 Intake and Output 11/03/18 11/04/18 11/04/18 22:59 06:59 14:59 Intake Total 500 222 Balance 500 222 Intake: Oral 500 222 Other: Voiding Method Toilet Toilet # Voids 650 Weight 82 kg - Constitutional General appearance: disheveled, mild distress, morbidly obese - EENT Eyes: anicteric sclerae, EOMI, poor dentition, normal appearance ENT: normal oropharynx Ears: bilateral: normal - Neck Neck: normal ROM Carotids: bilateral: upstroke normal Thyroid: bilateral: normal size - Respiratory Respiratory: bilateral: CTA, rales, negative: diminished, dullness - Cardiovascular Rhythm: regular Heart sounds: normal: S1, S2 - Integumentary Integumentary: normal turgor - Neurologic Neurologic: CNII-XII intact - Musculoskeletal Musculoskeletal: gait normal, generalized weakness, strength equal bilaterally - Psychiatric Psychiatric: A&O x's 3, appropriate affect Results - Laboratory Findings CBC and BMP: 11/04/18 05:22 11/04/18 05:22 PT/INR, D-dimer D-Dimer 1.78 mg/L FEU (<0.60) H 11/03/18 16:09 Abnormal lab findings: Abnormal Labs 11/03/18 11/03/18 11/03/18 16:09 16:09 16:09 WBC 11.4 H RBC 3.52 L Hgb 9.7 L Hct 33.4 L MCHC 29.0 L RDW 16.5 H Neutrophils # 8.1 H D-Dimer 1.78 H Sodium Potassium Chloride Carbon Dioxide BUN Creatinine Glucose POC Glucose (mg/dL) Hemoglobin A1c 7.8 H Calcium Troponin I Total Protein Albumin Urine Protein Urine Glucose (UA) Urine Blood 11/03/18 11/03/18 11/03/18 16:09 16:09 16:56 WBC RBC Hgb Hct MCHC RDW Neutrophils # D-Dimer Sodium 132 L Potassium Chloride 96 L Carbon Dioxide 36 H BUN 40 H Creatinine 2.86 H Glucose 190 H POC Glucose (mg/dL) 187 H Hemoglobin A1c Calcium 8.1 L Troponin I 1.550 H* Total Protein 5.4 L Albumin 2.8 L Urine Protein Urine Glucose (UA) Urine Blood 11/03/18 11/03/18 11/04/18 20:00 21:56 01:54 WBC RBC Hgb Hct MCHC RDW Neutrophils # D-Dimer Sodium Potassium Chloride Carbon Dioxide BUN Creatinine Glucose POC Glucose (mg/dL) 260 H Hemoglobin A1c Calcium Troponin I 1.630 H* Total Protein Albumin Urine Protein 2+ H Urine Glucose (UA) Trace H Urine Blood Trace H 11/04/18 11/04/18 11/04/18 05:22 05:22 06:07 WBC RBC 3.38 L Hgb 9.0 L Hct 32.0 L MCHC 28.2 L RDW 16.1 H Neutrophils # D-Dimer Sodium 132 L Potassium 5.6 H Chloride 97 L Carbon Dioxide 34 H BUN 46 H Creatinine 3.18 H Glucose 196 H POC Glucose (mg/dL) 204 H Hemoglobin A1c Calcium Troponin I Total Protein 5.0 L Albumin 2.6 L Urine Protein Urine Glucose (UA) Urine Blood 11/04/18 11:26 WBC RBC Hgb Hct MCHC RDW Neutrophils # D-Dimer Sodium Potassium Chloride Carbon Dioxide BUN Creatinine Glucose POC Glucose (mg/dL) 209 H Hemoglobin A1c Calcium Troponin I Total Protein Albumin Urine Protein Urine Glucose (UA) Urine Blood - Diagnostic Findings Chest x-ray: report reviewed, image reviewed CT scan - chest: report reviewed, image reviewed (Cardiomegaly bilateral pleural effusion mediastinal lymph node prominence on CAT scan, chest x-ray revealed cardiomegaly interstitial edema very small bilateral pleural effusion VQ scan is indeterminate duplex ultrasound lower extremities positive for right lower extremity DVT and is thrombosis) Assessment and Plan Assessment: Deep venous thrombosis of right lower extremity 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 Severe pulmonary hypertension Biventricular failure with acute on chronic systolic heart failure Small bilateral pleural effusion Plan: Anticoagulation Gentle diuresis Optimize therapy for heart failure Further recommendations pending plan of care as per clinical response of the patient Time with Patient: Greater than 30
[2018-11-04] MEDS: HEPARIN SOD,PORK IN 0.45% NACL 25,000 UNIT in 0.45% NACL 1 250ML.BAG IV SCH (15:12)
[2018-11-04 15:31] LABS: Anisocytosis Slight; Basophils % (A) 1 %; Eosinophils # (A) 0.2 k/uL (0-0.7); Eosinophils % (A) 2 %; HCT 29.6 % (34.0-46.0); HGB 8.4 gm/dL (11.4-16.0); Hypochromasia Marked; Lymphocytes % (A) 26 %; MCH 27.4 pg (25.0-35.0); MCHC 28.2 g/dL (31.0-37.0); MCV 97.2 fL (80.0-100.0); Macrocytosis Slight; Mean Platelet Volume 6.5; Monocytes # (A) 0.5 k/uL (0-1.0); Monocytes % (A) 6 %; Neutrophils # (A) 4.7 k/uL (1.3-7.7); Neutrophils % (A) 62 %; Platelet Count 294 k/uL (150-450); RBC 3.05 m/uL (3.80-5.40); RDW 16.8 % (11.5-15.5); WBC 7.5 k/uL (3.8-10.6)
[2018-11-04 15:46] LABS: INR 0.9 (<1.2); Prothrombin Time 9.5 sec (9.0-12.0)
[2018-11-04 15:55] LABS: Partial Thromboplastin Time 20.8 sec (22.0-30.0)
[2018-11-04 16:50] LABS: Glucose,Whole Blood 254 mg/dL (75-99)
[2018-11-04] MEDS: METOPROLOL SUCCINATE (ER) 50 MG TAB.ER.24H PO SCH (17:25)
[2018-11-04] MEDS: NICOTINE 21MG/24HR PATCH TRANSDERM SCH (17:26)
[2018-11-04] MEDS: MONTELUKAST 10 MG TAB PO SCH (19:53)
[2018-11-04] MEDS: PRAVASTATIN SODIUM 20 MG TAB PO SCH (19:53)
[2018-11-04] MEDS: FUROSEMIDE 10 MG/ML 10 ML VIAL IV SCH (19:54)
[2018-11-04 21:10] LABS: Glucose,Whole Blood 262 mg/dL (75-99)
[2018-11-04] MEDS: ZOLPIDEM 5 MG TAB PO PRN (21:36)
--- NOTE | 2018-11-04 21:51 | HP ---
HISTORY AND PHYSICAL CHIEF COMPLAINT: This patient is a 58-year-old lady who was sent to the hospital for extreme respiratory distress, leg swelling, weight gain, extreme shortness of breath, saturating in the 70s. EKG was abnormal. On admission she was severely short of breath, was found to have an elevated BNP, moderately impaired LV function on the echo with 35% ejection fraction, prior extensive inferolateral myocardial infarction, mild aortic stenosis, severe pulmonary hypertension on echo, moderate tricuspid regurgitation. Lasix 40 b.i.d. which was started on admission for systolic CHF and pleural effusions which were seen on CT scan of the abdomen. She has a history of diabetes mellitus, hypertension, lumbar disc disease, coronary artery disease. She had elevated troponin. Cardiology consult is appreciated. PAST MEDICAL HISTORY: As mentioned, CABG, coronary artery disease, hypertension, dyslipidemia. MEDICATIONS: Medications include: 1. Toprol. 2. Qvar. 3. Altace. 4. Pravastatin. 5. Lovaza. 6. Singulair. ALLERGIES: 1. PENICILLIN. 2. MORPHINE. 3. BACTRIM. FAMILY HISTORY: Negative for premature heart disease. SOCIAL HISTORY: Negative for smoking, alcohol or drug abuse. REVIEW OF SYSTEMS: Fourteen-point review of systems significant for shortness of breath and weakness and weight gain as mentioned above. Otherwise negative. PHYSICAL EXAMINATION: BP 112/56, heart races 25 to 35, pulses 80s to 100. Chest x-ray shows scattered rhonchi, rales at the base. Increased respiratory rate, gasping for air with breathing. HEMATOLOGY: Two to three plus pedal edema. ABDOMEN: Soft, distended due to obesity. ASSESSMENT: 1. Acute systolic congestive heart failure. 2. History of asthma/chronic obstructive pulmonary disease. 3. Nicotine addiction. 4. Coronary artery disease status post coronary artery bypass grafting. 5. Acute hypoxemic respiratory failure secondary to congestive heart failure. 6. Pleural effusions secondary to acute congestive heart failure. 7. Acute on chronic tubular necrosis, prerenal renal failure. Continue current treatments. Follow up in the next 24 to 48 hours. Multiple consultations include pulmonary due to intermediate pulmonary V/Q scan. Await further treatment. Continue with IV Lasix. MMODL / IJN: [id number] /
[2018-11-05] MEDS: HEPARIN SODIUM,PORCINE 5,000 UNIT/ML 1 ML VIAL SQ SCH (01:17)
[2018-11-05] MEDS: INSULIN ASPART (NovoLOG) 100 UNIT/ML VIAL SQ SCH ×5 (01:54→21:05)
[2018-11-05 02:11] LABS: Glucose,Whole Blood 276 mg/dL (75-99)
[2018-11-05 04:33] LABS: Anisocytosis Slight; Basophils % (A) 0 %; Eosinophils # (A) 0.2 k/uL (0-0.7); Eosinophils % (A) 3 %; HCT 30.7 % (34.0-46.0); HGB 8.6 gm/dL (11.4-16.0); Hypochromasia Marked; Lymphocytes # (A) 1.8 k/uL (1.0-4.8); Lymphocytes % (A) 20 %; MCH 27.2 pg (25.0-35.0); MCHC 28.2 g/dL (31.0-37.0); MCV 96.4 fL (80.0-100.0); Macrocytosis Slight; Mean Platelet Volume 6.3; Monocytes # (A) 0.5 k/uL (0-1.0); Monocytes % (A) 6 %; Neutrophils # (A) 6.2 k/uL (1.3-7.7); Neutrophils % (A) 69 %; Platelet Count 301 k/uL (150-450); RBC 3.18 m/uL (3.80-5.40); RDW 16.5 % (11.5-15.5)
[2018-11-05] MEDS: HEPARIN SOD,PORK IN 0.45% NACL 25,000 UNIT in 0.45% NACL 1 250ML.BAG IV SCH ×2 (05:36→23:37)
[2018-11-05 06:04] LABS: Glucose,Whole Blood 223 mg/dL (75-99)
[2018-11-05 06:25] LABS: Calcium 8.7 mg/dL (8.4-10.2); Magnesium 3.2 mg/dL (1.6-2.3); Phosphorus 5.9 mg/dL (2.5-4.5); Potassium 5.3 mmol/L (3.5-5.1)
[2018-11-05] MEDS: FLUTICASONE 110 MCG INHALER INHALATION SCH ×2 (08:23→20:27)
[2018-11-05] MEDS: ASPIRIN 325 MG TAB PO SCH ×2 (09:15→09:17)
[2018-11-05] MEDS: FERROUS SULFATE 325 MG TAB PO SCH ×2 (09:15→09:17)
[2018-11-05] MEDS: NICOTINE 21MG/24HR PATCH TRANSDERM SCH (09:17)
[2018-11-05 11:44] LABS: Glucose,Whole Blood 202 mg/dL (75-99)
--- NOTE | 2018-11-05 12:45 | P.PN ---
Subjective Progress Note Date: 11/05/18 This is a 58-year-old female with history of hyperlipidemia, diabetes , hypertension, who initially presented to the hospital with symptoms of abdominal discomfort and nausea. She was seen in consultation by Dr. Mendoza. Patient was also complaining of some leg edema and shortness of breath. Patient has extensive peripheral vascular disease and underwent a AAA repair and bilateral iliac artery graft placement. She also has a history of coronary artery disease with prior bypass surgery. Chronic severe renal failure. Cardiology was initially requested to see the patient because of abnormal troponins. Dr. Tracy did review some of her old records from [facility] that arrived yesterday, her EKG shows significant ST-T wave changes which have become somewhat worse on this admission. She did not have an echo performed at that hospital. We did perform an echocardiogram with Doppler study here which revealed a moderately impaired LV function with ejection fraction of 35% with extensive inferior and inferior lateral hypokinesia. Patient has mild aortic stenosis and severe pulmonary hypertension with moderate tricuspid regurg. Patient is currently on IV Lasix. She was seen and examined today, very sleepy overall. Objective - Vital Signs Vital signs: Vital Signs Temp 98.2 F 11/05/18 09:10 Pulse 87 11/05/18 11:45 Resp 16 11/05/18 11:45 BP 99/49 11/05/18 11:45 Pulse Ox 99 11/05/18 11:45 Intake & Output 11/04/18 11/05/18 11/05/18 18:59 06:59 18:59 Intake Total 222 421.794 Output Total 150 200 Balance 72 221.794 Weight 104 kg Intake: Intake, IV Titration 181.794 Amount Heparin Sod,Pork in 0.45% 181.794 NaCl 25,000 unit In 0.45 % NaCl 1 250ml.bag @ 18 UNITS/KG/HR 14.76 mls/hr IV .[id number] LAMAR Rx#: [id number] Oral 222 240 Output: Urine 150 200 Post Void Residual 0 Other: Voiding Method Toilet Toilet # Voids 1 - Exam PHYSICAL EXAMINATION: GENERAL: 58-year-old female in no acute distress at the time of my examination HEENT: Head is atraumatic, normocephalic. Pupils equal, round. Sclera anicteric. Conjunctiva are clear. Mucous membranes of the mouth are moist. Neck is supple. There is no elevated jugular venous pressure. No carotid bruit is heard. HEART EXAMINATION: Heart S1 S2 1 systolic murmur is heard CHEST EXAMINATION: And's reveal rales bilaterally with diminished air entry to the bases ABDOMEN: Soft, nontender. Bowel sounds are heard. No organomegaly noted. EXTREMITIES: 2+ peripheral pulses with 2+ evidence of peripheral edema and no calf tenderness noted. NEUROLOGIC [patient is sleepy, arousable - Labs CBC & Chem 7: 11/05/18 04:19 11/05/18 04:19 Labs: Abnormal Lab Results - Last 24 Hours (Table) 11/04/18 11/04/18 11/04/18 Range/Units 14:25 14:25 16:48 RBC 3.05 L (3.80-5.40) m/uL Hgb 8.4 L (11.4-16.0) gm/dL Hct 29.6 L (34.0-46.0) % MCHC 28.2 L (31.0-37.0) g/dL RDW 16.8 H (11.5-15.5) % APTT 20.8 L (22.0-30.0) sec Sodium (137-145) mmol/L Potassium (3.5-5.1) mmol/L Carbon Dioxide (22-30) mmol/L BUN (7-17) mg/dL Creatinine (0.52-1.04) mg/dL Glucose (74-99) mg/dL POC Glucose (mg/dL) 254 H (75-99) mg/dL Phosphorus (2.5-4.5) mg/dL Magnesium (1.6-2.3) mg/dL 11/04/18 11/04/18 11/05/18 Range/Units 20:51 21:02 01:51 RBC (3.80-5.40) m/uL Hgb (11.4-16.0) gm/dL Hct (34.0-46.0) % MCHC (31.0-37.0) g/dL RDW (11.5-15.5) % APTT 102.4 H* (22.0-30.0) sec Sodium (137-145) mmol/L Potassium (3.5-5.1) mmol/L Carbon Dioxide (22-30) mmol/L BUN (7-17) mg/dL Creatinine (0.52-1.04) mg/dL Glucose (74-99) mg/dL POC Glucose (mg/dL) 262 H 276 H (75-99) mg/dL Phosphorus (2.5-4.5) mg/dL Magnesium (1.6-2.3) mg/dL 11/05/18 11/05/18 11/05/18 Range/Units 04:19 04:19 04:19 RBC 3.18 L (3.80-5.40) m/uL Hgb 8.6 L (11.4-16.0) gm/dL Hct 30.7 L (34.0-46.0) % MCHC 28.2 L (31.0-37.0) g/dL RDW 16.5 H (11.5-15.5) % APTT 58.2 H (22.0-30.0) sec Sodium 135 L (137-145) mmol/L Potassium 5.3 H (3.5-5.1) mmol/L Carbon Dioxide 35 H (22-30) mmol/L BUN 54 H (7-17) mg/dL Creatinine 3.95 H (0.52-1.04) mg/dL Glucose 207 H (74-99) mg/dL POC Glucose (mg/dL) (75-99) mg/dL Phosphorus 5.9 H (2.5-4.5) mg/dL Magnesium 3.2 H (1.6-2.3) mg/dL 11/05/18 11/05/18 Range/Units 05:55 11:23 RBC (3.80-5.40) m/uL Hgb (11.4-16.0) gm/dL Hct (34.0-46.0) % MCHC (31.0-37.0) g/dL RDW (11.5-15.5) % APTT (22.0-30.0) sec Sodium (137-145) mmol/L Potassium (3.5-5.1) mmol/L Carbon Dioxide (22-30) mmol/L BUN (7-17) mg/dL Creatinine (0.52-1.04) mg/dL Glucose (74-99) mg/dL POC Glucose (mg/dL) 223 H 202 H (75-99) mg/dL Phosphorus (2.5-4.5) mg/dL Magnesium (1.6-2.3) mg/dL Assessment and Plan Plan: Assessment and plan #1 systolic congestive heart failure acute on chronic #2 COPD exacerbation #3 history of COPD and asthma #4 nicotine dependence #5 coronary artery disease with prior bypass surgery #6 acute on chronic renal failure #7 diabetes #8 hypertension #9 hyperlipidemia Plan From cardiology's perspective, we would recommend to continue the patient on her current dose of IV Lasix. Monitor intake and output and daily lytes BUN and creatinine closely. DNP note has been reviewed, I agree with a documented findings and plan of care. Patient was seen and examined.
[2018-11-05] MEDS: FUROSEMIDE 10 MG/ML 10 ML VIAL IV SCH ×2 (13:59→14:00)
[2018-11-05] MEDS: ASPIRIN 81 MG PO SCH (14:00)
[2018-11-05 16:37] LABS: Glucose,Whole Blood 205 mg/dL (75-99)
[2018-11-05] MEDS: METOPROLOL SUCCINATE (ER) 50 MG TAB.ER.24H PO SCH (17:28)
--- NOTE | 2018-11-05 18:13 | PN ---
PROGRESS NOTE The patient is seen for followup for acute kidney injury. Currently, patient is being diuresed for volume overload. Her serum creatinine has gone up from 3.1 to 3.95 mg/dL. On examination, blood pressure this morning was 113/54, heart rate of 87 per minute. Patient is afebrile. Examination of the Heart: S1 and S2. Examination of the Lungs: Bilateral breath sounds are heard. Abdomen is soft, nontender, obese. Examination of lower extremities show edema 2+ bilaterally. [employer] exam is grossly intact. LABS: Show sodium 135, potassium 5.3, chloride 98, BUN 54, serum creatinine 3.95, hemoglobin 8.6 g/dL, phosphorus 5.9. ASSESSMENT: 1. Acute kidney injury, mainly cardiorenal, maintained on diuretics. Continue with the IV Lasix. The patient's blood pressure is on the lower side. She is not on any significant antihypertensive medications. We can consider decreasing the dose of Toprol. 2. Cardiomyopathy, ejection fraction 35-40 percent. 3. Congestive heart failure, acute on top of chronic, mainly systolic. PLAN: Continue to diurese patient. Check daily weights. Decrease Toprol as blood pressure is on the lower side. Decrease Lasix to once a day and repeat labs in a.m. MMODL / IJN: [id number] /
[2018-11-05] MEDS: PRAVASTATIN SODIUM 20 MG TAB PO SCH (19:46)
[2018-11-05] MEDS: MONTELUKAST 10 MG TAB PO SCH (19:46)
[2018-11-05 21:02] LABS: Glucose,Whole Blood 338 mg/dL (75-99)
--- NOTE | 2018-11-05 21:03 | PN ---
PROGRESS NOTE SUBJECTIVE: White female is still sleepy and lethargic, but she is talking a bit more than yesterday. She has acute pulmonary embolism, DVT, on heparin. She has systolic CHF, pulmonary hypertension, severe, being treated with cardiac medications. Her diabetes is being treated with Accu-Chek protocol and insulin. Cardiovascular S1-S2. Lungs clear. GI soft. Hematology positive Homans sign. Lungs show scattered rales and rhonchi. ASSESSMENT: 1. Pulmonary embolism, deep venous thrombosis acute. 2. Systolic congestive heart failure. 3. Pulmonary hypertension, severe. 4. Insulin-dependent diabetes mellitus. 5. Acute hypoxemic respiratory distress. 6. Acute tubular necrosis with renal insufficiency. PLAN: Continue with current treatments with Heparin. Multiple consults including Cardiac, Pulmonary, and Renal. Hypertension will be controlled. Diabetes will be controlled. Treat for systolic CHF. Prognosis guarded, but she appears to be breathing a little bit better today than yesterday. MMODL / ETHANN: [id number] /
[2018-11-06] MEDS: INSULIN ASPART (NovoLOG) 100 UNIT/ML VIAL SQ SCH ×5 (01:39→21:22)
[2018-11-06 01:44] LABS: Glucose,Whole Blood 269 mg/dL (75-99)
[2018-11-06 05:31] LABS: Glucose,Whole Blood 229 mg/dL (75-99)
[2018-11-06 05:39] LABS: Anisocytosis Slight; Basophils % (A) 0 %; Eosinophils # (A) 0.2 k/uL (0-0.7); Eosinophils % (A) 2 %; HCT 29.5 % (34.0-46.0); HGB 8.5 gm/dL (11.4-16.0); Hypochromasia Marked; Lymphocytes # (A) 1.6 k/uL (1.0-4.8); Lymphocytes % (A) 16 %; MCH 28.3 pg (25.0-35.0); MCHC 28.8 g/dL (31.0-37.0); Macrocytosis Slight; Mean Platelet Volume 7.6; Monocytes # (A) 0.5 k/uL (0-1.0); Monocytes % (A) 6 %; Neutrophils # (A) 7.1 k/uL (1.3-7.7); Neutrophils % (A) 73 %; Platelet Count 249 k/uL (150-450); RBC 3.01 m/uL (3.80-5.40); RDW 16.6 % (11.5-15.5); WBC 9.7 k/uL (3.8-10.6)
[2018-11-06 05:54] LABS: Albumin 2.8 g/dL (3.5-5.0); Calcium 8.1 mg/dL (8.4-10.2); Total Bilirubin 0.3 mg/dL (0.2-1.3); Total Protein 5.4 g/dL (6.3-8.2)
[2018-11-06] MEDS: FLUTICASONE 110 MCG INHALER INHALATION SCH ×2 (08:33→19:08)
--- NOTE | 2018-11-06 09:34 | P.PN ---
Subjective Progress Note Date: 11/05/18 (Late entry note) Principal diagnosis: Right lower extremity venous thrombosis, chronic intermittent thromboembolism, pulmonary hypertension, biventricular failure, acute on chronic systolic heart failure, acute on chronic renal failure is stage IV, small bilateral pleural effusion likely related to heart failure, morbid obesity, suspect sleep disorder breathing and sleep apnea 11/05/2018, patient seen eval reexamined during the rounds clinically has been doing relatively better in terms of breathing leg swelling the lower extremity is slightly better patient is on anticoagulation with IV heparin for DVT thrombosis of lower extremity on the right side also probable pulmonary embolism as well Patient presented to the hospital with worsening dyspnea and edema. Patient states she's been getting progressively short of breath over the last 1 week. She initially thought it was asthma but the symptoms did not improve with nebulized treatments. She also noticed edema in her legs. She states she does not take any diuretics at home. She admits to good urine output. No hematuria or dysuria. No vomiting or diarrhea. Oral intake has been fair. Denies use of NSAIDs. Chest CT revealed bilateral pleural effusions. Echocardiogram revealed ejection fraction of 35-40% with severe pulmonary hypertension. Currently maintained on Lasix 40 mg IV twice daily. She has been voiding. No fever or chills. Her duplex ultrasound of the lower extremity came back positive for DVT patient is now being started on IV heparin Objective - Vital Signs Vital signs: Vital Signs Temp 98.7 F 11/06/18 08:50 Pulse 90 11/06/18 08:50 Resp 18 11/06/18 08:50 BP 106/53 11/06/18 08:50 Pulse Ox 97 11/06/18 08:50 Intake & Output 11/05/18 11/06/18 11/06/18 18:59 06:59 18:59 Intake Total 96 298.275 Balance 96 298.275 Intake: IV 96 Heparin Sod,Pork in 0.45% 96 NaCl 25,000 unit In 0.45 % NaCl 1 250ml.bag @ 18 UNITS/KG/HR 14.76 mls/hr IV .[id number] [facility] Rx#: [id number] Intake, IV Titration 298.275 Amount Heparin Sod,Pork in 0.45% 298.275 NaCl 25,000 unit In 0.45 % NaCl 1 250ml.bag @ 18 UNITS/KG/HR 14.76 mls/hr IV .[id number] [facility] Rx#: [id number] Other: Voiding Method Toilet Toilet Toilet Diaper Incontinent # Voids 1 1 # Bowel Movements 1 - Exam - Constitutional General appearance: disheveled, mild distress, morbidly obese - EENT Eyes: anicteric sclerae, EOMI, poor dentition, normal appearance ENT: normal oropharynx Ears: bilateral: normal - Neck Neck: normal ROM Carotids: bilateral: upstroke normal Thyroid: bilateral: normal size - Respiratory Respiratory: bilateral: CTA, rales, negative: diminished, dullness - Cardiovascular Rhythm: regular Heart sounds: normal: S1, S2 - Integumentary Integumentary: normal turgor - Neurologic Neurologic: CNII-XII intact - Musculoskeletal Musculoskeletal: gait normal, generalized weakness, strength equal bilaterally - Psychiatric Psychiatric: A&O x's 3, appropriate affect - Labs CBC & Chem 7: 11/06/18 05:26 11/06/18 05:26 Labs: Abnormal Lab Results - Last 24 Hours (Table) 11/05/18 11/05/18 11/05/18 Range/Units 11:23 16:33 20:42 RBC (3.80-5.40) m/uL Hgb (11.4-16.0) gm/dL Hct (34.0-46.0) % MCHC (31.0-37.0) g/dL RDW (11.5-15.5) % APTT (22.0-30.0) sec Sodium (137-145) mmol/L Chloride (98-107) mmol/L Carbon Dioxide (22-30) mmol/L BUN (7-17) mg/dL Creatinine (0.52-1.04) mg/dL Glucose (74-99) mg/dL POC Glucose (mg/dL) 202 H 205 H 338 H (75-99) mg/dL Calcium (8.4-10.2) mg/dL Total Protein (6.3-8.2) g/dL Albumin (3.5-5.0) g/dL 11/06/18 11/06/18 11/06/18 Range/Units 01:36 05:26 05:26 RBC 3.01 L (3.80-5.40) m/uL Hgb 8.5 L (11.4-16.0) gm/dL Hct 29.5 L (34.0-46.0) % MCHC 28.8 L (31.0-37.0) g/dL RDW 16.6 H (11.5-15.5) % APTT (22.0-30.0) sec Sodium 133 L (137-145) mmol/L Chloride 95 L (98-107) mmol/L Carbon Dioxide 34 H (22-30) mmol/L BUN 69 H (7-17) mg/dL Creatinine 4.92 H (0.52-1.04) mg/dL Glucose 217 H (74-99) mg/dL POC Glucose (mg/dL) 269 H (75-99) mg/dL Calcium 8.1 L (8.4-10.2) mg/dL Total Protein 5.4 L (6.3-8.2) g/dL Albumin 2.8 L (3.5-5.0) g/dL 11/06/18 11/06/18 Range/Units 05:26 05:30 RBC (3.80-5.40) m/uL Hgb (11.4-16.0) gm/dL Hct (34.0-46.0) % MCHC (31.0-37.0) g/dL RDW (11.5-15.5) % APTT 52.4 H (22.0-30.0) sec Sodium (137-145) mmol/L Chloride (98-107) mmol/L Carbon Dioxide (22-30) mmol/L BUN (7-17) mg/dL Creatinine (0.52-1.04) mg/dL Glucose (74-99) mg/dL POC Glucose (mg/dL) 229 H (75-99) mg/dL Calcium (8.4-10.2) mg/dL Total Protein (6.3-8.2) g/dL Albumin (3.5-5.0) g/dL Assessment and Plan Assessment: Deep venous thrombosis of right lower extremity 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 Severe pulmonary hypertension Biventricular failure with acute on chronic systolic heart failure Small bilateral pleural effusion Acute on chronic renal failure stage III to 4 Plan: Anticoagulation Gentle diuresis Optimize therapy for heart failure Monitor renal functions closely Further recommendations pending plan of care as per clinical response of the patient Time with Patient: Greater than 30
--- NOTE | 2018-11-06 09:35 | P.PN ---
Subjective Progress Note Date: 11/06/18 Principal diagnosis: Right lower extremity venous thrombosis, chronic intermittent thromboembolism, pulmonary hypertension, biventricular failure, acute on chronic systolic heart failure, acute on chronic renal failure is stage IV, small bilateral pleural effusion likely related to heart failure, morbid obesity, suspect sleep disorder breathing and sleep apnea 11/06/2018, patient seen eval examined during the rounds clinically patient has a been doing relatively better in terms of shortness of breath and swelling of the lower extremity patient is currently on room air however renal function continued to go up slightly and Lasix dose is being adjusted by renal service labs reviewed medications reviewed for now we'll continue IV heparin hopefully next 24-48 hours we'll switch it to oral anticoagulants 11/05/2018, patient seen eval reexamined during the rounds clinically has been doing relatively better in terms of breathing leg swelling the lower extremity is slightly better patient is on anticoagulation with IV heparin for DVT thrombosis of lower extremity on the right side also probable pulmonary embolism as well Patient presented to the hospital with worsening dyspnea and edema. Patient states she's been getting progressively short of breath over the last 1 week. She initially thought it was asthma but the symptoms did not improve with nebulized treatments. She also noticed edema in her legs. She states she does not take any diuretics at home. She admits to good urine output. No hematuria or dysuria. No vomiting or diarrhea. Oral intake has been fair. Denies use of NSAIDs. Chest CT revealed bilateral pleural effusions. Echocardiogram revealed ejection fraction of 35-40% with severe pulmonary hypertension. Currently maintained on Lasix 40 mg IV twice daily. She has been voiding. No fever or chills. Her duplex ultrasound of the lower extremity came back positive for DVT patient is now being started on IV heparin Objective - Vital Signs Vital signs: Vital Signs Temp 98.7 F 11/06/18 08:50 Pulse 90 11/06/18 08:50 Resp 18 11/06/18 08:50 BP 106/53 11/06/18 08:50 Pulse Ox 97 11/06/18 08:50 Intake & Output 11/05/18 11/06/18 11/06/18 18:59 06:59 18:59 Intake Total 96 298.275 Balance 96 298.275 Intake: IV 96 Heparin Sod,Pork in 0.45% 96 NaCl 25,000 unit In 0.45 % NaCl 1 250ml.bag @ 18 UNITS/KG/HR 14.76 mls/hr IV .[id number] [facility] Rx#: [id number] Intake, IV Titration 298.275 Amount Heparin Sod,Pork in 0.45% 298.275 NaCl 25,000 unit In 0.45 % NaCl 1 250ml.bag @ 18 UNITS/KG/HR 14.76 mls/hr IV .[id number] [facility] Rx#: [id number] Other: Voiding Method Toilet Toilet Toilet Diaper Incontinent # Voids 1 1 # Bowel Movements 1 - Exam - Constitutional General appearance: disheveled, mild distress, morbidly obese - EENT Eyes: anicteric sclerae, EOMI, poor dentition, normal appearance ENT: normal oropharynx Ears: bilateral: normal - Neck Neck: normal ROM Carotids: bilateral: upstroke normal Thyroid: bilateral: normal size - Respiratory Respiratory: bilateral: CTA, rales, negative: diminished, dullness - Cardiovascular Rhythm: regular Heart sounds: normal: S1, S2 - Integumentary Integumentary: normal turgor - Neurologic Neurologic: CNII-XII intact - Musculoskeletal Musculoskeletal: gait normal, generalized weakness, strength equal bilaterally - Psychiatric Psychiatric: A&O x's 3, appropriate affect - Labs CBC & Chem 7: 11/06/18 05:26 11/06/18 05:26 Labs: Abnormal Lab Results - Last 24 Hours (Table) 11/05/18 11/05/18 11/05/18 Range/Units 11:23 16:33 20:42 RBC (3.80-5.40) m/uL Hgb (11.4-16.0) gm/dL Hct (34.0-46.0) % MCHC (31.0-37.0) g/dL RDW (11.5-15.5) % APTT (22.0-30.0) sec Sodium (137-145) mmol/L Chloride (98-107) mmol/L Carbon Dioxide (22-30) mmol/L BUN (7-17) mg/dL Creatinine (0.52-1.04) mg/dL Glucose (74-99) mg/dL POC Glucose (mg/dL) 202 H 205 H 338 H (75-99) mg/dL Calcium (8.4-10.2) mg/dL Total Protein (6.3-8.2) g/dL Albumin (3.5-5.0) g/dL 11/06/18 11/06/18 11/06/18 Range/Units 01:36 05:26 05:26 RBC 3.01 L (3.80-5.40) m/uL Hgb 8.5 L (11.4-16.0) gm/dL Hct 29.5 L (34.0-46.0) % MCHC 28.8 L (31.0-37.0) g/dL RDW 16.6 H (11.5-15.5) % APTT (22.0-30.0) sec Sodium 133 L (137-145) mmol/L Chloride 95 L (98-107) mmol/L Carbon Dioxide 34 H (22-30) mmol/L BUN 69 H (7-17) mg/dL Creatinine 4.92 H (0.52-1.04) mg/dL Glucose 217 H (74-99) mg/dL POC Glucose (mg/dL) 269 H (75-99) mg/dL Calcium 8.1 L (8.4-10.2) mg/dL Total Protein 5.4 L (6.3-8.2) g/dL Albumin 2.8 L (3.5-5.0) g/dL 11/06/18 11/06/18 Range/Units 05:26 05:30 RBC (3.80-5.40) m/uL Hgb (11.4-16.0) gm/dL Hct (34.0-46.0) % MCHC (31.0-37.0) g/dL RDW (11.5-15.5) % APTT 52.4 H (22.0-30.0) sec Sodium (137-145) mmol/L Chloride (98-107) mmol/L Carbon Dioxide (22-30) mmol/L BUN (7-17) mg/dL Creatinine (0.52-1.04) mg/dL Glucose (74-99) mg/dL POC Glucose (mg/dL) 229 H (75-99) mg/dL Calcium (8.4-10.2) mg/dL Total Protein (6.3-8.2) g/dL Albumin (3.5-5.0) g/dL Assessment and Plan Assessment: Deep venous thrombosis of right lower extremity 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 Severe pulmonary hypertension Biventricular failure with acute on chronic systolic heart failure Small bilateral pleural effusion Acute on chronic renal failure stage III to 4 Plan: Anticoagulation Gentle diuresis Optimize therapy for heart failure Monitor renal functions closely Further recommendations pending plan of care as per clinical response of the patient Time with Patient: Greater than 30
[2018-11-06] MEDS: ASPIRIN 81 MG PO SCH (11:30)
[2018-11-06] MEDS: ALPRAZolam 0.5 MG TAB PO PRN (11:30)
[2018-11-06] MEDS: ONDANSETRON 4 MG/2 ML VIAL IVP PRN (11:30)
[2018-11-06] MEDS: NICOTINE 21MG/24HR PATCH TRANSDERM SCH (11:32)
[2018-11-06] MEDS: FERROUS SULFATE 325 MG TAB PO SCH (11:38)
[2018-11-06] MEDS: FUROSEMIDE 10 MG/ML 10 ML VIAL IV SCH (11:45)
[2018-11-06 11:57] LABS: Glucose,Whole Blood 245 mg/dL (75-99)
--- NOTE | 2018-11-06 12:52 | XR ---
EXAMINATION TYPE: XR chest 1V portable DATE OF EXAM: 11/06/2018 HISTORY: CHF. REFERENCE: Previous study dated 11/03/2018. FINDINGS: There is been a previous midline sternotomy. The heart is mildly enlarged. The lungs appear clear. There may be a trace of right pleural fluid. IMPRESSION: 1. NO OVERT HEART FAILURE. 2. I CANNOT EXCLUDE A SMALL RIGHT PLEURAL EFFUSION. 3. MILD CARDIOMEGALY.
--- NOTE | 2018-11-06 13:39 | P.PN ---
Subjective Progress Note Date: 11/06/18 Principal diagnosis: CHF/cardiomyopathy This is a pleasant 58-year-old female patient with an extensive past medical history for her age consistent of coronary artery disease, peripheral arterial disease, diabetes, hypertension, dyslipidemia, and chronic kidney disease, was admitted to the hospital with chest discomfort and was ruled in for acute non- ST patient myocardial infarction and also with congestive heart failure secondary to systolic dysfunction. The patient was treated medically for the non-STEMI The echocardiogram revealed impaired LV function with EF of 35%, mild aortic stenosis, severe pulmonary hypertension, and moderate tricuspid regurgitation. On follow-up with the patient today, 11/06/2018, she is quite lethargic. Beside that her creatinine jumped up significantly from 3.9-4.9. Nephrology seen the patient earlier today and they hold Lasix on her. She continues to be on IV anticoagulation with heparin for the non-STEMI and also for possible DVT/ PE. Objective - Vital Signs Vital signs: Vital Signs Temp 98.7 F 11/06/18 08:50 Pulse 84 11/06/18 11:00 Resp 18 11/06/18 11:05 BP 103/55 11/06/18 11:00 Pulse Ox 91 L 11/06/18 11:05 Intake & Output 11/05/18 11/06/18 11/06/18 18:59 06:59 18:59 Intake Total 96 298.275 Balance 96 298.275 Intake: IV 96 Heparin Sod,Pork in 0.45% 96 NaCl 25,000 unit In 0.45 % NaCl 1 250ml.bag @ 18 UNITS/KG/HR 14.76 mls/hr IV .[id number] [facility] Rx#: [id number] Intake, IV Titration 298.275 Amount Heparin Sod,Pork in 0.45% 298.275 NaCl 25,000 unit In 0.45 % NaCl 1 250ml.bag @ 18 UNITS/KG/HR 14.76 mls/hr IV .[id number] [facility] Rx#: [id number] Other: Voiding Method Toilet Toilet Toilet Diaper Incontinent # Voids 1 1 # Bowel Movements 1 - Constitutional General appearance: Present: no acute distress - Respiratory Respiratory: bilateral: rales - Cardiovascular Rhythm: regular Heart sounds: normal: S1, S2 Abnormal Heart Sounds: Present: systolic murmur - Labs CBC & Chem 7: 11/06/18 05:26 11/06/18 05:26 Labs: Abnormal Lab Results - Last 24 Hours (Table) 11/05/18 11/05/18 11/06/18 Range/Units 16:33 20:42 01:36 RBC (3.80-5.40) m/uL Hgb (11.4-16.0) gm/dL Hct (34.0-46.0) % MCHC (31.0-37.0) g/dL RDW (11.5-15.5) % APTT (22.0-30.0) sec Sodium (137-145) mmol/L Chloride (98-107) mmol/L Carbon Dioxide (22-30) mmol/L BUN (7-17) mg/dL Creatinine (0.52-1.04) mg/dL Glucose (74-99) mg/dL POC Glucose (mg/dL) 205 H 338 H 269 H (75-99) mg/dL Calcium (8.4-10.2) mg/dL Total Protein (6.3-8.2) g/dL Albumin (3.5-5.0) g/dL 11/06/18 11/06/18 11/06/18 Range/Units 05:26 05:26 05:26 RBC 3.01 L (3.80-5.40) m/uL Hgb 8.5 L (11.4-16.0) gm/dL Hct 29.5 L (34.0-46.0) % MCHC 28.8 L (31.0-37.0) g/dL RDW 16.6 H (11.5-15.5) % APTT 52.4 H (22.0-30.0) sec Sodium 133 L (137-145) mmol/L Chloride 95 L (98-107) mmol/L Carbon Dioxide 34 H (22-30) mmol/L BUN 69 H (7-17) mg/dL Creatinine 4.92 H (0.52-1.04) mg/dL Glucose 217 H (74-99) mg/dL POC Glucose (mg/dL) (75-99) mg/dL Calcium 8.1 L (8.4-10.2) mg/dL Total Protein 5.4 L (6.3-8.2) g/dL Albumin 2.8 L (3.5-5.0) g/dL 11/06/18 11/06/18 Range/Units 05:30 11:37 RBC (3.80-5.40) m/uL Hgb (11.4-16.0) gm/dL Hct (34.0-46.0) % MCHC (31.0-37.0) g/dL RDW (11.5-15.5) % APTT (22.0-30.0) sec Sodium (137-145) mmol/L Chloride (98-107) mmol/L Carbon Dioxide (22-30) mmol/L BUN (7-17) mg/dL Creatinine (0.52-1.04) mg/dL Glucose (74-99) mg/dL POC Glucose (mg/dL) 229 H 245 H (75-99) mg/dL Calcium (8.4-10.2) mg/dL Total Protein (6.3-8.2) g/dL Albumin (3.5-5.0) g/dL Assessment and Plan Assessment: Assessment #1 systolic congestive heart failure exacerbation #2 acute non-ST elevation myocardial infarction #3 acute on chronic renal failure #4 peripheral vascular disease #5 multiple comorbid conditions Plan #1 the Lasix dose was held today because of the worsening kidney function #2 continue anticoagulation IV for additional 24 hours #3 follow-up with the patient.
[2018-11-06 16:44] LABS: Glucose,Whole Blood 271 mg/dL (75-99)
[2018-11-06] MEDS: METOPROLOL SUCCINATE (ER) 50 MG TAB.ER.24H PO SCH (17:42)
--- NOTE | 2018-11-06 18:29 | PN ---
PROGRESS NOTE DATE OF SERVICE: 11/06/2018 She has been hemodynamically stable. Continues to have shortness of breath. Her respiratory rate is 18, pulse rate 84, temperature 98.7, blood pressure 103/55, O2 saturation on room air is 80%, on 3 L by nasal cannula is 91%. HEENT reveals pupils that are equal. Chest reveals decreased breath sounds with prolonged expiration. Cardiovascular system reveals an S1, S2. Abdomen is soft. There is no pedal edema. White count is 9.7, hemoglobin of 8.5. Sodium 133, potassium 5, chloride 95, bicarb 34, BUN 69, creatinine of 4.92. IMPRESSION: 1. Deep venous thrombosis of the right lower extremity. 2. Congestive heart failure. 3. Chronic renal failure. 4. Pulmonary hypertension. 5. Possible obstructive sleep apnea that is untreated. At this point in time, optimize her anticoagulation, optimize her fluid status, increase her activity level. The patient is being seen by Pulmonary and Cardiology and appreciate their recommendations and intervention. MMODL / IJN: [id number] /
--- NOTE | 2018-11-06 19:19 | PN ---
PROGRESS NOTE The patient is seen for followup for acute kidney injury. This morning, nursing staff reports that patient has been confused. Her Lasix was decreased yesterday. Renal function continues to worsen. It is at 4.9 today. A postvoid residual volume has been checked. It has been about 200 mL or less. Patient has been voiding in her briefs. PHYSICAL EXAMINATION: Blood pressure is 103/55, heart rate 84 per minute. She is afebrile. Examination of the heart S1, S2. Examination lungs bilateral breath sounds are heard. Abdomen is soft, nontender. Examination lower extremities shows edema 1+ bilaterally. [employer] exam is grossly in intact. Patient is, however, confused. Labs show sodium was 133, potassium 5.0, chloride 95, CO2 is 34, BUN 69, serum creatinine 4.92, hemoglobin 8.5 g/dL. ASSESSMENT: 1. Acute kidney injury with worsening renal function. She is maintained on IV Lasix which was decreased yesterday. I will hold off on the dose of IV Lasix today. We will check a chest x-ray. I will also place a Martinez catheter. If the patient remains confused and renal function continues to deteriorate, patient will need to be dialyzed. 2. Cardiomyopathy, ejection fraction 35-40% with dilated left atrium. 3. Congestive heart failure, acute on top of chronic, status post diuresis. PLAN: Hold off on Lasix. Add dobutamine if okay with Cardiology, repeat labs in a.m. and patient will need to be dialyzed if renal function continues to worsen and she remains confused. MMODL / IJN: [id number] /
[2018-11-06] MEDS: HEPARIN SOD,PORK IN 0.45% NACL 25,000 UNIT in 0.45% NACL 1 250ML.BAG IV SCH (19:55)
[2018-11-06] MEDS: MONTELUKAST 10 MG TAB PO SCH (19:56)
[2018-11-06] MEDS: PRAVASTATIN SODIUM 20 MG TAB PO SCH (19:57)
[2018-11-06] MEDS ORDERED: ACETAMINOPHEN IV (For NPO) 1,000 MG in EMPTY BAG 1 BAG IVPB PRN (20:02)
[2018-11-06] MEDS ORDERED: MD COMMUNICATION TO PHARMACY 1 EACH MISC PO PRN (20:04)
[2018-11-06] MEDS: PIPERACILLIN-TAZOBACTAM 2.25 GM in SODIUM CHLORIDE 0.9% 100 ML IVPB SCH (21:02)
[2018-11-06 21:06] LABS: Glucose,Whole Blood 236 mg/dL (75-99)
[2018-11-06 23:41] LABS: Glucose,Whole Blood 254 mg/dL (75-99)
--- NOTE | 2018-11-07 00:04 | XR ---
EXAMINATION TYPE: XR chest 1V portable DATE OF EXAM: 11/06/2018 COMPARISON: 11/06/2018 HISTORY: Short of breath TECHNIQUE: Single frontal view of the chest is obtained. FINDINGS: Heart is enlarged. There is no gross heart failure. There is minimal pulmonary congestion. There are chest leads. There are sternal wires. IMPRESSION: Mild pulmonary congestion probably increased slightly compared to exam this morning. No overt heart failure.
[2018-11-07 00:19] LABS: Anisocytosis Slight; Basophils % (A) 0 %; Eosinophils # (A) 0.1 k/uL (0-0.7); Eosinophils % (A) 1 %; HGB 7.6 gm/dL (11.4-16.0); Hypochromasia Marked; Lymphocytes # (A) 1.2 k/uL (1.0-4.8); Lymphocytes % (A) 14 %; MCH 28.1 pg (25.0-35.0); MCV 100.3 fL (80.0-100.0); Macrocytosis Slight; Monocytes # (A) 0.3 k/uL (0-1.0); Monocytes % (A) 4 %; Neutrophils # (A) 6.7 k/uL (1.3-7.7); Neutrophils % (A) 78 %; Platelet Count 254 k/uL (150-450); RDW 16.9 % (11.5-15.5); WBC 8.5 k/uL (3.8-10.6)
[2018-11-07] MEDS ORDERED: NALOXONE 0.4 MG/ML 1 ML VIAL IV PRN (00:19)
[2018-11-07 00:27] LABS: Lactic Acid, Venous 0.7 mmol/L (0.7-2.0)
[2018-11-07 00:28] LABS: Magnesium 3.4 mg/dL (1.6-2.3); Potassium 5.8 mmol/L (3.5-5.1)
[2018-11-07 00:38] LABS: Albumin 2.7 g/dL (3.5-5.0); Total Bilirubin 0.3 mg/dL (0.2-1.3); Total Protein 5.4 g/dL (6.3-8.2)
[2018-11-07 00:40] LABS: VBG PH 7.15 (7.31-7.41)
[2018-11-07] MEDS ORDERED: SODIUM CHLORIDE 0.9% 500 ML 500 ML IV ONE (00:51)
[2018-11-07] MEDS: INSULIN ASPART (NovoLOG) 100 UNIT/ML VIAL SQ SCH ×2 (01:07→07:07)
[2018-11-07 01:14] LABS: Appearance,Urine Turbid (Clear); Bilirubin,Urine Negative (Negative); Blood,Urine Moderate (Negative); Color,Urine Yellow; Glucose,Urine (UA) 2+ (Negative); Hyaline Casts,Urine 14 /lpf (0-2); Ketones,Urine Negative (Negative); Leukocyte Esterase,Urine Large (Negative); Mucus,Urine Rare /hpf; Nitrite,Urine Negative (Negative); PH, Urine 5.5 (5.0-8.0); Protein,Urine 3+ (Negative); RBC,Urine 70 /hpf (0-5); Renal Epithelial Cells,Urine <1 /hpf (0); Specific Gravity,Urine 1.014 (1.001-1.035); Squamous Epithelial Cell,Urine 6 /hpf (0-4); Urobilinogen,Urine <2.0 mg/dL (<2.0)
[2018-11-07] MEDS: NOREPINEPHRINE 4 MG in SODIUM CHLORIDE 0.9% 250 ML IV SCH ×4 (02:49→14:53)
[2018-11-07] MEDS: PIPERACILLIN-TAZOBACTAM 2.25 GM in SODIUM CHLORIDE 0.9% 100 ML IVPB SCH (04:32)
[2018-11-07 06:19] LABS: Anisocytosis Slight; Basophils % (A) 0 %; Eosinophils # (A) 0.1 k/uL (0-0.7); Eosinophils % (A) 1 %; HCT 27.3 % (34.0-46.0); HGB 7.5 gm/dL (11.4-16.0); Hypochromasia Marked; Lymphocytes # (A) 1.3 k/uL (1.0-4.8); Lymphocytes % (A) 11 %; MCH 27.9 pg (25.0-35.0); MCHC 27.6 g/dL (31.0-37.0); Macrocytosis Slight; Mean Platelet Volume 6.6; Monocytes # (A) 0.7 k/uL (0-1.0); Monocytes % (A) 6 %; Neutrophils # (A) 9.4 k/uL (1.3-7.7); Neutrophils % (A) 79 %; Platelet Count 353 k/uL (150-450); RDW 17.3 % (11.5-15.5); WBC 11.9 k/uL (3.8-10.6)
[2018-11-07] MEDS: FLUTICASONE 110 MCG INHALER INHALATION SCH ×2 (06:41→19:16)
[2018-11-07] MEDS: ALBUTEROL NEBULIZED 2.5 MG/3 ML INHALATION PRN ×3 (06:41→19:11)
[2018-11-07 07:10] LABS: Glucose,Whole Blood 223 mg/dL (75-99)
[2018-11-07] MEDS ORDERED: SODIUM BICARB 8.4% 50 ML SYR (1 MEQ/ML) IV ONE (07:17)
--- NOTE | 2018-11-07 07:23 | XR ---
EXAMINATION TYPE: XR chest 1V DATE OF EXAM: 11/07/2018 COMPARISON: 11/06/2018 HISTORY: 58-year-old female follow-up CHF TECHNIQUE: Single frontal view of the chest is obtained. FINDINGS: Median sternotomy wires are present. Heart borderline to mildly enlarged. Mild interstitial prominenc e and patchy bibasilar opacities, overall similar to prior. IMPRESSION: Overall similar borderline to mild cardiomegaly and patchy bibasilar areas of atelectasis or developi ng infiltrates. Suspect mild pulmonary vascular congestion. No nayely pulmonary edema.
[2018-11-07 07:29] LABS: Albumin 2.7 g/dL (3.5-5.0); Calcium 7.8 mg/dL (8.4-10.2); Magnesium 3.2 mg/dL (1.6-2.3); Phosphorus 6.8 mg/dL (2.5-4.5); Total Bilirubin 0.4 mg/dL (0.2-1.3); Total Protein 5.1 g/dL (6.3-8.2)
[2018-11-07 07:41] LABS: Potassium 6.4 mmol/L (3.5-5.1)
[2018-11-07] MEDS ORDERED: DEXTROSE 5% IN WATER 1,000 ML with SODIUM BICARB (1 MEQ/ML) 150 ML IV SCH (08:00)
--- NOTE | 2018-11-07 08:41 | P.PN ---
Subjective Progress Note Date: 11/07/18 Principal diagnosis: CHF/cardiomyopathy This is a pleasant 58-year-old female patient with an extensive past medical history for her age consistent of coronary artery disease, peripheral arterial disease, diabetes, hypertension, dyslipidemia, and chronic kidney disease, was admitted to the hospital with chest discomfort and was ruled in for acute non- ST patient myocardial infarction and also with congestive heart failure secondary to systolic dysfunction. The patient was treated medically for the non-STEMI The echocardiogram revealed impaired LV function with EF of 35%, mild aortic stenosis, severe pulmonary hypertension, and moderate tricuspid regurgitation. On follow-up with the patient today, November [id number], unfortunately clinically she is not doing well. She was transferred to the intensive care unit last night because she had change in her mental status. She is feeling slightly better from that standpoint this morning. Beside that her creatinine is worse and this morning is 5.9 from 4.9. She is hyperkalemic as well which is likely related to her acute renal failure. I did ask to give the patient calcium gluconate because I can see hyperacute T waves on the EKG. Hair anticoagulation was heparin is on hold at this point because the hemoglobin is low and there was some blood in the stool. Hemodynamically she is unstable and she is requiring high dose of Levophed. Beside that she was given 1 L of IV fluid and currently she is receiving also 0.9 normal saline at 100 per hour. Objective - Vital Signs Vital signs: Vital Signs Temp 97.5 F L 11/07/18 04:30 Pulse 92 11/07/18 08:15 Resp 23 11/07/18 08:15 BP 102/30 11/07/18 08:15 Pulse Ox 100 11/07/18 08:15 Intake & Output 11/06/18 11/07/18 11/07/18 18:59 06:59 18:59 Intake Total 209.021 268.144 Output Total 87 2 Balance 2004.021 266.144 Intake: IV 1700 100 Sodium Chloride 0.9% 1, 200 100 000 ml @ 100 mls/hr IV . Q10H [facility] Rx#:[id number] Sodium Chloride 0.9% 1, 1000 000 ml @ 250 mls/hr IV . Q4H [facility] Rx#:[id number] Sodium Chloride 0.9% 500 500 ml 500 ml @ 999 mls/hr IV .Q31M [facility] Rx#:[id number] Intake, IV Titration 392.021 168.144 Amount Heparin Sod,Pork in 0.45% 173.02 137.145 NaCl 25,000 unit In 0.45 % NaCl 1 250ml.bag @ 18 UNITS/KG/HR 14.76 mls/hr IV .[id number] [facility] Rx#: [id number] Norepinephrine 4 mg In 219.001 30.999 Sodium Chloride 0.9% 250 ml @ Titrate IV .Q0M [facility] Rx#:[id number] Output: Urine 87 2 Other: Voiding Method Indwelling Catheter Indwelling Catheter # Voids 1 - Constitutional General appearance: Present: no acute distress - Respiratory Respiratory: bilateral: diminished - Cardiovascular Heart sounds: normal: S1, S2 - Labs CBC & Chem 7: 11/07/18 06:07 11/07/18 06:07 Labs: Abnormal Lab Results - Last 24 Hours (Table) 11/06/18 11/06/18 11/06/18 Range/Units 11:37 16:36 20:59 WBC (3.8-10.6) k/uL RBC (3.80-5.40) m/uL Hgb (11.4-16.0) gm/dL Hct (34.0-46.0) % MCV (80.0-100.0) fL MCHC (31.0-37.0) g/dL RDW (11.5-15.5) % Neutrophils # (1.3-7.7) k/uL APTT (22.0-30.0) sec VBG pH (7.31-7.41) VBG pCO2 (37-51) mmHg VBG HCO3 (24-28) mmol/L Sodium (137-145) mmol/L Potassium (3.5-5.1) mmol/L Carbon Dioxide (22-30) mmol/L BUN (7-17) mg/dL Creatinine (0.52-1.04) mg/dL Glucose (74-99) mg/dL POC Glucose (mg/dL) 245 H 271 H 236 H (75-99) mg/dL Calcium (8.4-10.2) mg/dL Phosphorus (2.5-4.5) mg/dL Magnesium (1.6-2.3) mg/dL AST (14-36) U/L Total Protein (6.3-8.2) g/dL Albumin (3.5-5.0) g/dL Urine Appearance (Clear) Urine Protein (Negative) Urine Glucose (UA) (Negative) Urine Blood (Negative) Ur Leukocyte Esterase (Negative) Urine RBC (0-5) /hpf Urine WBC (0-5) /hpf Urine WBC Clumps (None) /hpf Ur Squamous Epith Cells (0-4) /hpf Hyaline Casts (0-2) /lpf Urine Mucus (None) /hpf Stool Occult Blood (Negative) 11/06/18 11/07/18 11/07/18 Range/Units 23:37 00:04 00:04 WBC (3.8-10.6) k/uL RBC 2.70 L (3.80-5.40) m/uL Hgb 7.6 L (11.4-16.0) gm/dL Hct 27.0 L (34.0-46.0) % MCV 100.3 H (80.0-100.0) fL MCHC 28.0 L (31.0-37.0) g/dL RDW 16.9 H (11.5-15.5) % Neutrophils # (1.3-7.7) k/uL APTT (22.0-30.0) sec VBG pH (7.31-7.41) VBG pCO2 (37-51) mmHg VBG HCO3 (24-28) mmol/L Sodium 134 L (137-145) mmol/L Potassium 5.8 H (3.5-5.1) mmol/L Carbon Dioxide 31 H (22-30) mmol/L BUN 87 H (7-17) mg/dL Creatinine 5.82 H (0.52-1.04) mg/dL Glucose 234 H (74-99) mg/dL POC Glucose (mg/dL) 254 H (75-99) mg/dL Calcium 8.0 L (8.4-10.2) mg/dL Phosphorus (2.5-4.5) mg/dL Magnesium 3.4 H (1.6-2.3) mg/dL AST (14-36) U/L Total Protein 5.4 L (6.3-8.2) g/dL Albumin 2.7 L (3.5-5.0) g/dL Urine Appearance (Clear) Urine Protein (Negative) Urine Glucose (UA) (Negative) Urine Blood (Negative) Ur Leukocyte Esterase (Negative) Urine RBC (0-5) /hpf Urine WBC (0-5) /hpf Urine WBC Clumps (None) /hpf Ur Squamous Epith Cells (0-4) /hpf Hyaline Casts (0-2) /lpf Urine Mucus (None) /hpf Stool Occult Blood (Negative) 11/07/18 11/07/18 11/07/18 Range/Units 00:21 01:00 02:00 WBC (3.8-10.6) k/uL RBC (3.80-5.40) m/uL Hgb (11.4-16.0) gm/dL Hct (34.0-46.0) % MCV (80.0-100.0) fL MCHC (31.0-37.0) g/dL RDW (11.5-15.5) % Neutrophils # (1.3-7.7) k/uL APTT (22.0-30.0) sec VBG pH 7.15 L* (7.31-7.41) VBG pCO2 98 H* (37-51) mmHg VBG HCO3 32 H (24-28) mmol/L Sodium (137-145) mmol/L Potassium (3.5-5.1) mmol/L Carbon Dioxide (22-30) mmol/L BUN (7-17) mg/dL Creatinine (0.52-1.04) mg/dL Glucose (74-99) mg/dL POC Glucose (mg/dL) (75-99) mg/dL Calcium (8.4-10.2) mg/dL Phosphorus (2.5-4.5) mg/dL Magnesium (1.6-2.3) mg/dL AST (14-36) U/L Total Protein (6.3-8.2) g/dL Albumin (3.5-5.0) g/dL Urine Appearance Turbid H (Clear) Urine Protein 3+ H (Negative) Urine Glucose (UA) 2+ H (Negative) Urine Blood Moderate H (Negative) Ur Leukocyte Esterase Large H (Negative) Urine RBC 70 H (0-5) /hpf Urine WBC 67 H (0-5) /hpf Urine WBC Clumps Many H (None) /hpf Ur Squamous Epith Cells 6 H (0-4) /hpf Hyaline Casts 14 H (0-2) /lpf Urine Mucus Rare H (None) /hpf Stool Occult Blood Positive H (Negative) 11/07/18 11/07/18 11/07/18 Range/Units 06:07 06:07 06:07 WBC 11.9 H (3.8-10.6) k/uL RBC 2.70 L (3.80-5.40) m/uL Hgb 7.5 L (11.4-16.0) gm/dL Hct 27.3 L (34.0-46.0) % MCV 101.0 H (80.0-100.0) fL MCHC 27.6 L (31.0-37.0) g/dL RDW 17.3 H (11.5-15.5) % Neutrophils # 9.4 H (1.3-7.7) k/uL APTT 117.3 H* (22.0-30.0) sec VBG pH (7.31-7.41) VBG pCO2 (37-51) mmHg VBG HCO3 (24-28) mmol/L Sodium (137-145) mmol/L Potassium 6.4 H* (3.5-5.1) mmol/L Carbon Dioxide (22-30) mmol/L BUN 89 H (7-17) mg/dL Creatinine 5.85 H (0.52-1.04) mg/dL Glucose 225 H (74-99) mg/dL POC Glucose (mg/dL) (75-99) mg/dL Calcium 7.8 L (8.4-10.2) mg/dL Phosphorus 6.8 H (2.5-4.5) mg/dL Magnesium 3.2 H (1.6-2.3) mg/dL AST 55 H (14-36) U/L Total Protein 5.1 L (6.3-8.2) g/dL Albumin 2.7 L (3.5-5.0) g/dL Urine Appearance (Clear) Urine Protein (Negative) Urine Glucose (UA) (Negative) Urine Blood (Negative) Ur Leukocyte Esterase (Negative) Urine RBC (0-5) /hpf Urine WBC (0-5) /hpf Urine WBC Clumps (None) /hpf Ur Squamous Epith Cells (0-4) /hpf Hyaline Casts (0-2) /lpf Urine Mucus (None) /hpf Stool Occult Blood (Negative) 11/07/18 Range/Units 06:59 WBC (3.8-10.6) k/uL RBC (3.80-5.40) m/uL Hgb (11.4-16.0) gm/dL Hct (34.0-46.0) % MCV (80.0-100.0) fL MCHC (31.0-37.0) g/dL RDW (11.5-15.5) % Neutrophils # (1.3-7.7) k/uL APTT (22.0-30.0) sec VBG pH (7.31-7.41) VBG pCO2 (37-51) mmHg VBG HCO3 (24-28) mmol/L Sodium (137-145) mmol/L Potassium (3.5-5.1) mmol/L Carbon Dioxide (22-30) mmol/L BUN (7-17) mg/dL Creatinine (0.52-1.04) mg/dL Glucose (74-99) mg/dL POC Glucose (mg/dL) 223 H (75-99) mg/dL Calcium (8.4-10.2) mg/dL Phosphorus (2.5-4.5) mg/dL Magnesium (1.6-2.3) mg/dL AST (14-36) U/L Total Protein (6.3-8.2) g/dL Albumin (3.5-5.0) g/dL Urine Appearance (Clear) Urine Protein (Negative) Urine Glucose (UA) (Negative) Urine Blood (Negative) Ur Leukocyte Esterase (Negative) Urine RBC (0-5) /hpf Urine WBC (0-5) /hpf Urine WBC Clumps (None) /hpf Ur Squamous Epith Cells (0-4) /hpf Hyaline Casts (0-2) /lpf Urine Mucus (None) /hpf Stool Occult Blood (Negative) Microbiology - Last 24 Hours (Table) 11/07/18 06:04 Sputum Culture - Preliminary Sputum Assessment and Plan Assessment: Assessment #1 systolic congestive heart failure exacerbation #2 acute non-ST elevation myocardial infarction #3 acute on chronic renal failure #4 peripheral vascular disease #5 systemic hypertension #6 hyperkalemia Plan #1 continue holding the diuretics #2 hold any blood pressure medication #3 continue support the blood pressure was vasopressors #4 continue IV fluid #5 hold the heparin #6 monitor the hemoglobin #7 give calcium gluconate #8 follow-up with the patient
[2018-11-07] MEDS: SODIUM CHLORIDE 0.9% 1,000 ML IV SCH ×6 (08:45→20:13)
[2018-11-07] MEDS: ASPIRIN 81 MG PO SCH (08:48)
[2018-11-07] MEDS: FERROUS SULFATE 325 MG TAB PO SCH (08:48)
--- NOTE | 2018-11-07 08:49 | US ---
EXAMINATION TYPE: US kidneys/renal and bladder DATE OF EXAM: 11/04/2018 COMPARISON: None CLINICAL HISTORY: 58 year-old female acute kidney injury. Diabetic, hypoxia TECHNIQUE: Multiple sonographic images of the kidneys and bladder are obtained. FINDINGS: EXAM MEASUREMENTS: Right Kidney: 8.6 x 6.2 x 4.5 cm Left Kidney: 9.0 x 5.0 x 5.3 cm Post Void Residual Volume: not assessed on inpatient Right Kidney: mid pole shadowing calcification = 0.5 x 0.4 x 0.3cm; echogenic and thinned cortex, sma ll for size Left Kidney: Echogenic and thinned renal cortex. Bladder: not dully distended limiting its evaluation Bilateral Jets seen: no, only right jet was seen within 3 minutes of observation No hydronephrosis seen on either side. IMPRESSION: 1. Changes of chronic medical renal disease. No hydronephrosis is seen. 2. A 5 mm nonobstructive calculus in the right kidney. 3. Underdistention of the bladder limits its evaluation.
[2018-11-07] MEDS ORDERED: PANTOPRAZOLE 40 MG/10 ML VIAL IV SCH (09:00)
[2018-11-07] MEDS: HEPARIN SOD,PORK IN 0.45% NACL 25,000 UNIT in 0.45% NACL 1 250ML.BAG IV SCH (09:01)
[2018-11-07] MEDS: NICOTINE 21MG/24HR PATCH TRANSDERM SCH (09:05)
[2018-11-07] MEDS ORDERED: CALCIUM GLUCONATE 1,000 MG in SODIUM CHLORIDE 0.9% 100 ML IVPB ONE (09:44)
[2018-11-07] MEDS ORDERED: INSULIN REGULAR 100 UNIT/ML VIAL IV ONE (09:45)
[2018-11-07] MEDS ORDERED: DEXTROSE 50%-WATER 50 ML SYRINGE IVP STA (09:46)
[2018-11-07] MEDS ORDERED: ALBUTEROL NEBULIZED (CONC) 20 MG, SODIUM CHLORIDE 0.9% NEBULIZ 3 ML INHALATION ONE ×2 (09:46)
--- NOTE | 2018-11-07 10:14 | P.PN ---
Subjective Patient is seen in follow-up for acute kidney injury on chronic kidney disease. Patient has chronic kidney disease stage IV with baseline creatinine near 3 secondary to diabetic kidney disease. Renal function is worsening with creatinine up to 5.85 today. Patient's currently in the ICU. She remains quite confused. She is on 30 mics of Levophed. Now oliguric. Vital signs are stable. General: The patient appeared well nourished and normally developed. HEENT: Head exam is unremarkable. Neck is without jugular venous distension. LUNGS: Breath sounds decreased. HEART: Rate and Rhythm are regular. First and second heart sounds normal. No murmurs, rubs or gallops. ABDOMEN: Abdominal exam reveals normal bowel sounds. Non-tender and non- distended. No evidence of peritonitis. EXTREMITITES: No clubbing, cyanosis, or edema. Objective - Vital Signs Vital signs: Vital Signs Temp 98.4 F 11/07/18 08:30 Pulse 94 11/07/18 09:45 Resp 19 11/07/18 09:45 BP 105/32 11/07/18 09:45 Pulse Ox 100 11/07/18 09:45 Intake & Output 11/06/18 11/07/18 11/07/18 18:59 06:59 18:59 Intake Total 2092.021 568.144 Output Total 87 2 Balance 2005.021 566.144 Intake: IV 1700 400 Dextrose 5% in Water 1, 100 000 ml @ 50 mls/hr IV . Q23H [facility] with Sodium Bicarb (1 Meq/ml) 150 ml Rx#:[id number] Sodium Chloride 0.9% 1, 200 300 000 ml @ 100 mls/hr IV . Q10H [facility] Rx#:[id number] Sodium Chloride 0.9% 1, 1000 000 ml @ 250 mls/hr IV . Q4H [facility] Rx#:[id number] Sodium Chloride 0.9% 500 500 ml 500 ml @ 999 mls/hr IV .Q31M [facility] Rx#:[id number] Intake, IV Titration 392.021 168.144 Amount Heparin Sod,Pork in 0.45% 173.02 137.145 NaCl 25,000 unit In 0.45 % NaCl 1 250ml.bag @ 18 UNITS/KG/HR 14.76 mls/hr IV .[id number] [facility] Rx#: [id number] Norepinephrine 4 mg In 219.001 30.999 Sodium Chloride 0.9% 250 ml @ Titrate IV .Q0M [facility] Rx#:[id number] Output: Urine 87 2 Other: Voiding Method Indwelling Catheter Indwelling Catheter # Voids 1 - Labs CBC & Chem 7: 11/07/18 06:07 11/07/18 06:07 Labs: Abnormal Lab Results - Last 24 Hours (Table) 11/06/18 11/06/18 11/06/18 Range/Units 11:37 16:36 20:59 WBC (3.8-10.6) k/uL RBC (3.80-5.40) m/uL Hgb (11.4-16.0) gm/dL Hct (34.0-46.0) % MCV (80.0-100.0) fL MCHC (31.0-37.0) g/dL RDW (11.5-15.5) % Neutrophils # (1.3-7.7) k/uL APTT (22.0-30.0) sec VBG pH (7.31-7.41) VBG pCO2 (37-51) mmHg VBG HCO3 (24-28) mmol/L Sodium (137-145) mmol/L Potassium (3.5-5.1) mmol/L Carbon Dioxide (22-30) mmol/L BUN (7-17) mg/dL Creatinine (0.52-1.04) mg/dL Glucose (74-99) mg/dL POC Glucose (mg/dL) 245 H 271 H 236 H (75-99) mg/dL Calcium (8.4-10.2) mg/dL Phosphorus (2.5-4.5) mg/dL Magnesium (1.6-2.3) mg/dL AST (14-36) U/L Total Protein (6.3-8.2) g/dL Albumin (3.5-5.0) g/dL Urine Appearance (Clear) Urine Protein (Negative) Urine Glucose (UA) (Negative) Urine Blood (Negative) Ur Leukocyte Esterase (Negative) Urine RBC (0-5) /hpf Urine WBC (0-5) /hpf Urine WBC Clumps (None) /hpf Ur Squamous Epith Cells (0-4) /hpf Hyaline Casts (0-2) /lpf Urine Mucus (None) /hpf Stool Occult Blood (Negative) 11/06/18 11/07/18 11/07/18 Range/Units 23:37 00:04 00:04 WBC (3.8-10.6) k/uL RBC 2.70 L (3.80-5.40) m/uL Hgb 7.6 L (11.4-16.0) gm/dL Hct 27.0 L (34.0-46.0) % MCV 100.3 H (80.0-100.0) fL MCHC 28.0 L (31.0-37.0) g/dL RDW 16.9 H (11.5-15.5) % Neutrophils # (1.3-7.7) k/uL APTT (22.0-30.0) sec VBG pH (7.31-7.41) VBG pCO2 (37-51) mmHg VBG HCO3 (24-28) mmol/L Sodium 134 L (137-145) mmol/L Potassium 5.8 H (3.5-5.1) mmol/L Carbon Dioxide 31 H (22-30) mmol/L BUN 87 H (7-17) mg/dL Creatinine 5.82 H (0.52-1.04) mg/dL Glucose 234 H (74-99) mg/dL POC Glucose (mg/dL) 254 H (75-99) mg/dL Calcium 8.0 L (8.4-10.2) mg/dL Phosphorus (2.5-4.5) mg/dL Magnesium 3.4 H (1.6-2.3) mg/dL AST (14-36) U/L Total Protein 5.4 L (6.3-8.2) g/dL Albumin 2.7 L (3.5-5.0) g/dL Urine Appearance (Clear) Urine Protein (Negative) Urine Glucose (UA) (Negative) Urine Blood (Negative) Ur Leukocyte Esterase (Negative) Urine RBC (0-5) /hpf Urine WBC (0-5) /hpf Urine WBC Clumps (None) /hpf Ur Squamous Epith Cells (0-4) /hpf Hyaline Casts (0-2) /lpf Urine Mucus (None) /hpf Stool Occult Blood (Negative) 11/07/18 11/07/18 11/07/18 Range/Units 00:21 01:00 02:00 WBC (3.8-10.6) k/uL RBC (3.80-5.40) m/uL Hgb (11.4-16.0) gm/dL Hct (34.0-46.0) % MCV (80.0-100.0) fL MCHC (31.0-37.0) g/dL RDW (11.5-15.5) % Neutrophils # (1.3-7.7) k/uL APTT (22.0-30.0) sec VBG pH 7.15 L* (7.31-7.41) VBG pCO2 98 H* (37-51) mmHg VBG HCO3 32 H (24-28) mmol/L Sodium (137-145) mmol/L Potassium (3.5-5.1) mmol/L Carbon Dioxide (22-30) mmol/L BUN (7-17) mg/dL Creatinine (0.52-1.04) mg/dL Glucose (74-99) mg/dL POC Glucose (mg/dL) (75-99) mg/dL Calcium (8.4-10.2) mg/dL Phosphorus (2.5-4.5) mg/dL Magnesium (1.6-2.3) mg/dL AST (14-36) U/L Total Protein (6.3-8.2) g/dL Albumin (3.5-5.0) g/dL Urine Appearance Turbid H (Clear) Urine Protein 3+ H (Negative) Urine Glucose (UA) 2+ H (Negative) Urine Blood Moderate H (Negative) Ur Leukocyte Esterase Large H (Negative) Urine RBC 70 H (0-5) /hpf Urine WBC 67 H (0-5) /hpf Urine WBC Clumps Many H (None) /hpf Ur Squamous Epith Cells 6 H (0-4) /hpf Hyaline Casts 14 H (0-2) /lpf Urine Mucus Rare H (None) /hpf Stool Occult Blood Positive H (Negative) 11/07/18 11/07/18 11/07/18 Range/Units 06:07 06:07 06:07 WBC 11.9 H (3.8-10.6) k/uL RBC 2.70 L (3.80-5.40) m/uL Hgb 7.5 L (11.4-16.0) gm/dL Hct 27.3 L (34.0-46.0) % MCV 101.0 H (80.0-100.0) fL MCHC 27.6 L (31.0-37.0) g/dL RDW 17.3 H (11.5-15.5) % Neutrophils # 9.4 H (1.3-7.7) k/uL APTT 117.3 H* (22.0-30.0) sec VBG pH (7.31-7.41) VBG pCO2 (37-51) mmHg VBG HCO3 (24-28) mmol/L Sodium (137-145) mmol/L Potassium 6.4 H* (3.5-5.1) mmol/L Carbon Dioxide (22-30) mmol/L BUN 89 H (7-17) mg/dL Creatinine 5.85 H (0.52-1.04) mg/dL Glucose 225 H (74-99) mg/dL POC Glucose (mg/dL) (75-99) mg/dL Calcium 7.8 L (8.4-10.2) mg/dL Phosphorus 6.8 H (2.5-4.5) mg/dL Magnesium 3.2 H (1.6-2.3) mg/dL AST 55 H (14-36) U/L Total Protein 5.1 L (6.3-8.2) g/dL Albumin 2.7 L (3.5-5.0) g/dL Urine Appearance (Clear) Urine Protein (Negative) Urine Glucose (UA) (Negative) Urine Blood (Negative) Ur Leukocyte Esterase (Negative) Urine RBC (0-5) /hpf Urine WBC (0-5) /hpf Urine WBC Clumps (None) /hpf Ur Squamous Epith Cells (0-4) /hpf Hyaline Casts (0-2) /lpf Urine Mucus (None) /hpf Stool Occult Blood (Negative) 11/07/18 Range/Units 06:59 WBC (3.8-10.6) k/uL RBC (3.80-5.40) m/uL Hgb (11.4-16.0) gm/dL Hct (34.0-46.0) % MCV (80.0-100.0) fL MCHC (31.0-37.0) g/dL RDW (11.5-15.5) % Neutrophils # (1.3-7.7) k/uL APTT (22.0-30.0) sec VBG pH (7.31-7.41) VBG pCO2 (37-51) mmHg VBG HCO3 (24-28) mmol/L Sodium (137-145) mmol/L Potassium (3.5-5.1) mmol/L Carbon Dioxide (22-30) mmol/L BUN (7-17) mg/dL Creatinine (0.52-1.04) mg/dL Glucose (74-99) mg/dL POC Glucose (mg/dL) 223 H (75-99) mg/dL Calcium (8.4-10.2) mg/dL Phosphorus (2.5-4.5) mg/dL Magnesium (1.6-2.3) mg/dL AST (14-36) U/L Total Protein (6.3-8.2) g/dL Albumin (3.5-5.0) g/dL Urine Appearance (Clear) Urine Protein (Negative) Urine Glucose (UA) (Negative) Urine Blood (Negative) Ur Leukocyte Esterase (Negative) Urine RBC (0-5) /hpf Urine WBC (0-5) /hpf Urine WBC Clumps (None) /hpf Ur Squamous Epith Cells (0-4) /hpf Hyaline Casts (0-2) /lpf Urine Mucus (None) /hpf Stool Occult Blood (Negative) Microbiology - Last 24 Hours (Table) 11/07/18 06:04 Sputum Culture - Preliminary Sputum Assessment and Plan Plan: Assessment: 1. Acute kidney injury secondary to ATN secondary to hypotension. Creatinine up to 5.85 today. Currently oliguric. No hydronephrosis noted on renal ultrasound. 2. Chronic kidney disease stage IV secondary to diabetic kidney disease and nephrosclerosis with baseline creatinine near 3 according to the patient. Patient follows with a order processor out of [place]. 3. Systolic CHF with ejection fraction of 30-35% with severe pulmonary hypertension and moderate tricuspid regurgitation. 4. Volume overload. Better. 5. Hypervolemic hyponatremia. 6. Hyperkalemia secondary to acute kidney injury. 7. Diabetes mellitus. 8. Hypotension maintained on 30 mics of Levophed. 9. Hyperphosphatemia secondary to acute kidney injury. Expect improvement postdialysis. Plan: Maintain normal saline at 100 mL an hour. Discontinue bicarbonate drip. 10 units of IV insulin with an amp of D50, 20 mg of nebulized albuterol now. 1 g IV calcium gluconate now. Consult vascular surgery for dialysis catheter placement. First treatment of hemodialysis today. Follow-up cultures.
[2018-11-07] MEDS ORDERED: INSULIN REGULAR BOLUS (FROM DRIP BAG) IV PRN (11:12)
[2018-11-07 11:14] LABS: Glucose,Whole Blood 321 mg/dL (75-99)
[2018-11-07 11:21] LABS: INR 0.9 (<1.2)
[2018-11-07] MEDS ORDERED: INSULIN ASPART (NovoLOG) 100 UNIT/ML VIAL SQ SCH (12:00)
[2018-11-07] MEDS: INSULIN REGULAR 100 UNIT in SODIUM CHLORIDE 0.9% 100 ML IV SCH (12:18)
--- NOTE | 2018-11-07 12:38 | XR ---
EXAMINATION TYPE: XR chest 1V portable DATE OF EXAM: 11/07/2018 Comparison: 11/07/2018 Clinical History: 58-year-old female dialysis catheter placement Findings: Right IJ double-lumen hemodialysis catheter tips at the mid SVC level. Heart remains mildly enlarged. Median sternotomy wires are present. Interstitial prominence and hazy bibasilar density suggesting s mall effusions. No nayely pulmonary edema. No appreciable pneumothorax. Impression: Right IJ double-lumen hemodialysis catheter tip at the mid SVC level. Suspect mild pulmonary vascular congestion. No nayely pulmonary edema. Small effusion suggested by hazy bibasilar densities.
--- NOTE | 2018-11-07 13:07 | P.PN ---
Subjective Progress Note Date: 11/07/18 (Critical care time spent 40 minutes) Principal diagnosis: Acute renal failure, altered mental status, hypotension, severe sepsis, hypertension, and urea Right lower extremity venous thrombosis, chronic intermittent thromboembolism, pulmonary hypertension, biventricular failure, acute on chronic systolic heart failure, acute on chronic renal failure is stage IV, small bilateral pleural effusion likely related to heart failure, morbid obesity, suspect sleep disorder breathing and sleep apnea 11/07/2018, patient seen and evaluated examined during the rounds this morning critical care time spent 40 minutes, patient has removed to the ICU from medical floor as she was hypotensive with poor urine output in addition patient has been more somnolent and lethargic she did have receive a dose of Xanax on the floor, after arrival in ICU patient remains very hypotensive with tachycardia was given multiple fluid boluses to improve the hemodynamics however eventually starting the levo fed drip, patient does have 2 peripheral IVs one of them is not functioning very well, worsening of renal function has been noted the renal services planning to do hemodialysis, patient has very poor peripheral arterial disease unable to obtain ABG in addition to that very poor peripheral pulses are present, patient is arousable opens eyes follow simple commands but remains very anxious and agitated, patient eventually went up to 25 mics of levo fed drip with a systolic blood pressure ranging about 100 210, urine output has been very minimal, given that the lack of ability of IV axis will proceed with a central line however patient needed dialysis port as well will do a trilysis catheter (hemodialysis catheter with extra port), care plan discussed with the vascular surgery as well and renal services planning to do hemodialysis later on today provided hemodynamics remain stable, due to anticipated profound metabolic acidosis patient has been started on bicarb drip , patient is being kept on IV Zosyn heparin has been on hold due to procedures as well as elevated PTT labs reviewed medications reviewed radiographic studies reviewed as well 11/06/2018, patient seen eval examined during the rounds clinically patient has a been doing relatively better in terms of shortness of breath and swelling of the lower extremity patient is currently on room air however renal function continued to go up slightly and Lasix dose is being adjusted by renal service labs reviewed medications reviewed for now we'll continue IV heparin hopefully next 24-48 hours we'll switch it to oral anticoagulants 11/05/2018, patient seen eval reexamined during the rounds clinically has been doing relatively better in terms of breathing leg swelling the lower extremity is slightly better patient is on anticoagulation with IV heparin for DVT thrombosis of lower extremity on the right side also probable pulmonary embolism as well Patient presented to the hospital with worsening dyspnea and edema. Patient states she's been getting progressively short of breath over the last 1 week. She initially thought it was asthma but the symptoms did not improve with nebulized treatments. She also noticed edema in her legs. She states she does not take any diuretics at home. She admits to good urine output. No hematuria or dysuria. No vomiting or diarrhea. Oral intake has been fair. Denies use of NSAIDs. Chest CT revealed bilateral pleural effusions. Echocardiogram revealed ejection fraction of 35-40% with severe pulmonary hypertension. Currently maintained on Lasix 40 mg IV twice daily. She has been voiding. No fever or chills. Her duplex ultrasound of the lower extremity came back positive for DVT patient is now being started on IV heparin Objective - Vital Signs Vital signs: Vital Signs Temp 98.4 F 11/07/18 08:30 Pulse 92 11/07/18 12:00 Resp 16 11/07/18 12:00 BP 119/42 11/07/18 12:00 Pulse Ox 100 11/07/18 12:00 Intake & Output 11/06/18 11/07/18 11/07/18 18:59 06:59 18:59 Intake Total 2092.021 1018.144 Output Total 87 8 Balance 2005.021 1010.144 Intake: IV 1700 600 Dextrose 5% in Water 1, 100 000 ml @ 50 mls/hr IV . Q23H LAMAR with Sodium Bicarb (1 Meq/ml) 150 ml Rx#:[id number] Sodium Chloride 0.9% 1, 200 500 000 ml @ 100 mls/hr IV . Q10H L[facility]AR Rx#:[id number] Sodium Chloride 0.9% 1, 1000 000 ml @ 250 mls/hr IV . Q4H LAMAR Rx#:[id number] Sodium Chloride 0.9% 500 500 ml 500 ml @ 999 mls/hr IV .Q31M ONE Rx#:[id number] Intake, IV Titration 392.021 418.144 Amount Heparin Sod,Pork in 0.45% 173.02 137.145 NaCl 25,000 unit In 0.45 % NaCl 1 250ml.bag @ 18 UNITS/KG/HR 14.76 mls/hr IV .[id number] LAMAR Rx#: [id number] Norepinephrine 4 mg In 219.001 280.999 Sodium Chloride 0.9% 250 ml @ Titrate IV .Q0M LAMAR Rx#:[id number] Output: Urine 87 8 Other: Voiding Method Indwelling Catheter Indwelling Catheter # Voids 1 - Exam - Constitutional General appearance: disheveled, mild distress, morbidly obese, intermittently anxious and agitated and combative times - EENT Eyes: anicteric sclerae, EOMI, poor dentition, normal appearance ENT: normal oropharynx Ears: bilateral: normal - Neck Neck: normal ROM Carotids: bilateral: upstroke normal Thyroid: bilateral: normal size - Respiratory Respiratory: bilateral: CTA, few basal rales, negative: diminished, dullness - Cardiovascular Rhythm: regular Heart sounds: normal: S1, S2 - Integumentary Integumentary: normal turgor - Neurologic Neurologic: CNII-XII intact - Musculoskeletal Musculoskeletal: Moving all 4 extremity good tone in all 4 extremity,- Psychiatric Psychiatric: A&O x's 2, in appropriate affect, at times become anxious and agitated and combative - Labs CBC & Chem 7: 11/07/18 06:07 11/07/18 06:07 Labs: Abnormal Lab Results - Last 24 Hours (Table) 11/06/18 11/06/18 11/06/18 Range/Units 16:36 20:59 23:37 WBC (3.8-10.6) k/uL RBC (3.80-5.40) m/uL Hgb (11.4-16.0) gm/dL Hct (34.0-46.0) % MCV (80.0-100.0) fL MCHC (31.0-37.0) g/dL RDW (11.5-15.5) % Neutrophils # (1.3-7.7) k/uL APTT (22.0-30.0) sec VBG pH (7.31-7.41) VBG pCO2 (37-51) mmHg VBG HCO3 (24-28) mmol/L Sodium (137-145) mmol/L Potassium (3.5-5.1) mmol/L Carbon Dioxide (22-30) mmol/L BUN (7-17) mg/dL Creatinine (0.52-1.04) mg/dL Glucose (74-99) mg/dL POC Glucose (mg/dL) 271 H 236 H 254 H (75-99) mg/dL Calcium (8.4-10.2) mg/dL Phosphorus (2.5-4.5) mg/dL Magnesium (1.6-2.3) mg/dL AST (14-36) U/L Total Protein (6.3-8.2) g/dL Albumin (3.5-5.0) g/dL Urine Appearance (Clear) Urine Protein (Negative) Urine Glucose (UA) (Negative) Urine Blood (Negative) Ur Leukocyte Esterase (Negative) Urine RBC (0-5) /hpf Urine WBC (0-5) /hpf Urine WBC Clumps (None) /hpf Ur Squamous Epith Cells (0-4) /hpf Hyaline Casts (0-2) /lpf Urine Mucus (None) /hpf Stool Occult Blood (Negative) 11/07/18 11/07/18 11/07/18 Range/Units 00:04 00:04 00:21 WBC (3.8-10.6) k/uL RBC 2.70 L (3.80-5.40) m/uL Hgb 7.6 L (11.4-16.0) gm/dL Hct 27.0 L (34.0-46.0) % MCV 100.3 H (80.0-100.0) fL MCHC 28.0 L (31.0-37.0) g/dL RDW 16.9 H (11.5-15.5) % Neutrophils # (1.3-7.7) k/uL APTT (22.0-30.0) sec VBG pH 7.15 L* (7.31-7.41) VBG pCO2 98 H* (37-51) mmHg VBG HCO3 32 H (24-28) mmol/L Sodium 134 L (137-145) mmol/L Potassium 5.8 H (3.5-5.1) mmol/L Carbon Dioxide 31 H (22-30) mmol/L BUN 87 H (7-17) mg/dL Creatinine 5.82 H (0.52-1.04) mg/dL Glucose 234 H (74-99) mg/dL POC Glucose (mg/dL) (75-99) mg/dL Calcium 8.0 L (8.4-10.2) mg/dL Phosphorus (2.5-4.5) mg/dL Magnesium 3.4 H (1.6-2.3) mg/dL AST (14-36) U/L Total Protein 5.4 L (6.3-8.2) g/dL Albumin 2.7 L (3.5-5.0) g/dL Urine Appearance (Clear) Urine Protein (Negative) Urine Glucose (UA) (Negative) Urine Blood (Negative) Ur Leukocyte Esterase (Negative) Urine RBC (0-5) /hpf Urine WBC (0-5) /hpf Urine WBC Clumps (None) /hpf Ur Squamous Epith Cells (0-4) /hpf Hyaline Casts (0-2) /lpf Urine Mucus (None) /hpf Stool Occult Blood (Negative) 11/07/18 11/07/18 11/07/18 Range/Units 01:00 02:00 06:07 WBC 11.9 H (3.8-10.6) k/uL RBC 2.70 L (3.80-5.40) m/uL Hgb 7.5 L (11.4-16.0) gm/dL Hct 27.3 L (34.0-46.0) % MCV 101.0 H (80.0-100.0) fL MCHC 27.6 L (31.0-37.0) g/dL RDW 17.3 H (11.5-15.5) % Neutrophils # 9.4 H (1.3-7.7) k/uL APTT (22.0-30.0) sec VBG pH (7.31-7.41) VBG pCO2 (37-51) mmHg VBG HCO3 (24-28) mmol/L Sodium (137-145) mmol/L Potassium (3.5-5.1) mmol/L Carbon Dioxide (22-30) mmol/L BUN (7-17) mg/dL Creatinine (0.52-1.04) mg/dL Glucose (74-99) mg/dL POC Glucose (mg/dL) (75-99) mg/dL Calcium (8.4-10.2) mg/dL Phosphorus (2.5-4.5) mg/dL Magnesium (1.6-2.3) mg/dL AST (14-36) U/L Total Protein (6.3-8.2) g/dL Albumin (3.5-5.0) g/dL Urine Appearance Turbid H (Clear) Urine Protein 3+ H (Negative) Urine Glucose (UA) 2+ H (Negative) Urine Blood Moderate H (Negative) Ur Leukocyte Esterase Large H (Negative) Urine RBC 70 H (0-5) /hpf Urine WBC 67 H (0-5) /hpf Urine WBC Clumps Many H (None) /hpf Ur Squamous Epith Cells 6 H (0-4) /hpf Hyaline Casts 14 H (0-2) /lpf Urine Mucus Rare H (None) /hpf Stool Occult Blood Positive H (Negative) 11/07/18 11/07/18 11/07/18 Range/Units 06:07 06:07 06:59 WBC (3.8-10.6) k/uL RBC (3.80-5.40) m/uL Hgb (11.4-16.0) gm/dL Hct (34.0-46.0) % MCV (80.0-100.0) fL MCHC (31.0-37.0) g/dL RDW (11.5-15.5) % Neutrophils # (1.3-7.7) k/uL APTT 117.3 H* (22.0-30.0) sec VBG pH (7.31-7.41) VBG pCO2 (37-51) mmHg VBG HCO3 (24-28) mmol/L Sodium (137-145) mmol/L Potassium 6.4 H* (3.5-5.1) mmol/L Carbon Dioxide (22-30) mmol/L BUN 89 H (7-17) mg/dL Creatinine 5.85 H (0.52-1.04) mg/dL Glucose 225 H (74-99) mg/dL POC Glucose (mg/dL) 223 H (75-99) mg/dL Calcium 7.8 L (8.4-10.2) mg/dL Phosphorus 6.8 H (2.5-4.5) mg/dL Magnesium 3.2 H (1.6-2.3) mg/dL AST 55 H (14-36) U/L Total Protein 5.1 L (6.3-8.2) g/dL Albumin 2.7 L (3.5-5.0) g/dL Urine Appearance (Clear) Urine Protein (Negative) Urine Glucose (UA) (Negative) Urine Blood (Negative) Ur Leukocyte Esterase (Negative) Urine RBC (0-5) /hpf Urine WBC (0-5) /hpf Urine WBC Clumps (None) /hpf Ur Squamous Epith Cells (0-4) /hpf Hyaline Casts (0-2) /lpf Urine Mucus (None) /hpf Stool Occult Blood (Negative) 11/07/18 Range/Units 11:02 WBC (3.8-10.6) k/uL RBC (3.80-5.40) m/uL Hgb (11.4-16.0) gm/dL Hct (34.0-46.0) % MCV (80.0-100.0) fL MCHC (31.0-37.0) g/dL RDW (11.5-15.5) % Neutrophils # (1.3-7.7) k/uL APTT (22.0-30.0) sec VBG pH (7.31-7.41) VBG pCO2 (37-51) mmHg VBG HCO3 (24-28) mmol/L Sodium (137-145) mmol/L Potassium (3.5-5.1) mmol/L Carbon Dioxide (22-30) mmol/L BUN (7-17) mg/dL Creatinine (0.52-1.04) mg/dL Glucose (74-99) mg/dL POC Glucose (mg/dL) 321 H (75-99) mg/dL Calcium (8.4-10.2) mg/dL Phosphorus (2.5-4.5) mg/dL Magnesium (1.6-2.3) mg/dL AST (14-36) U/L Total Protein (6.3-8.2) g/dL Albumin (3.5-5.0) g/dL Urine Appearance (Clear) Urine Protein (Negative) Urine Glucose (UA) (Negative) Urine Blood (Negative) Ur Leukocyte Esterase (Negative) Urine RBC (0-5) /hpf Urine WBC (0-5) /hpf Urine WBC Clumps (None) /hpf Ur Squamous Epith Cells (0-4) /hpf Hyaline Casts (0-2) /lpf Urine Mucus (None) /hpf Stool Occult Blood (Negative) Microbiology - Last 24 Hours (Table) 11/07/18 06:04 Sputum Culture - Preliminary Sputum Assessment and Plan Assessment: Acute renal failure and anuric Severe sepsis on broad-spectrum antibiotics Altered mental status and metabolic encephalopathy likely multifactorial related to renal failure Deep venous thrombosis of right lower extremity 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 Severe pulmonary hypertension Biventricular failure with acute on chronic systolic heart failure Small bilateral pleural effusion Plan: Anticoagulation as tolerated Gentle diuresis not effective will proceed with the hemodialysis Patient will need a hemodialysis catheter and a central line will do trilysis cathetor as mentioned above Arterial line Optimize therapy for heart failure Monitor renal functions closely Further recommendations pending plan of care as per clinical response of the patient Bicarb drip Time with Patient: Greater than 30
--- NOTE | 2018-11-07 13:10 | P.PCN ---
Date of Procedure: 11/07/18 Preoperative Diagnosis: Severe sepsis and septic shock, acute renal failure, metabolic encephalopathy, Postoperative Diagnosis: As above Procedure(s) Performed: Hemodialysis catheter placement, with extra port Anesthesia: local Surgeon: Bharathi Gordillo Estimated Blood Loss (ml): 20 Indications for Procedure: As above Operative Findings: As below Description of Procedure: Patient prepared and draped in the usual fashion, ultrasound was utilized to locate an axis the internal jugular vein via anterior approach using a modified Seldinger technique the hemodialysis catheter was inserted with extra port, dilatation was performed with 2 dilators for adequate placement, post procedure chest x-ray reviewed no complication noted
--- NOTE | 2018-11-07 13:12 | P.PCN ---
Date of Procedure: 11/07/18 Preoperative Diagnosis: Severe sepsis and septic shock, acute renal failure, metabolic encephalopathy Postoperative Diagnosis: As above Procedure(s) Performed: Arterial line Anesthesia: local Surgeon: Bharathi Gordillo Estimated Blood Loss (ml): 1 Condition: critical Disposition: ICU Indications for Procedure: As above Operative Findings: As below Description of Procedure: Patient prepared and draped in a usual fashion the right wrist was thoroughly cleaned and prepared using aseptic technique single-lumen catheter placement was attempted was unsuccessful hemostasis achieved no complication noted ultrasound was also utilized very small peripheral radial artery with very poor visibility,
[2018-11-07 13:20] LABS: Glucose,Whole Blood 290 mg/dL (75-99)
[2018-11-07 14:53] LABS: Glucose,Whole Blood 233 mg/dL (75-99)
[2018-11-07] MEDS: METOPROLOL SUCCINATE (ER) 50 MG TAB.ER.24H PO SCH (14:56)
[2018-11-07 16:21] LABS: Glucose,Whole Blood 195 mg/dL (75-99)
--- NOTE | 2018-11-07 16:36 | CONS ---
CONSULTATION DATE OF SERVICE: 11/07/2018 REASON FOR CONSULTATION: Sepsis, antibiotic recommendation. HISTORY OF PRESENT ILLNESS: The patient is a 58 -year-old female with past medical history significant for diabetes mellitus, chronic renal disease secondary to diabetic nephrosclerosis. Patient presented to [facility] on 11/03/2018 with increasing shortness of breath and edema. Patient's symptoms had been progressively getting worse over the week before she presented to the hospital. There was no history of any cough, sputum production, or any fever before the patient presented to the hospital. With these symptoms, the patient was evaluated on admission. This patient was afebrile; however, she did spike a fever of 101.1 degrees Fahrenheit last night. That prompted this infectious disease consultation. Patient did have mild elevated white count of 11.4 on admission, which has subsequently normalized, with a white count of 11.9 today. Patient is also noted to have worsening of her kidney function. Her creatinine was 2.6 and it is up to 5.85 as of today. The patient last night, in addition to spiking a fever, also became hypotensive requiring multiple fluid boluses, and at one point she was down to 84 systolic over 27. The patient has been moved down to the ICU and has been started on BiPAP. The patient did have a repeat x-ray done this morning which shows suspected pulmonary vascular congestion and increasing infiltrate on the right side. Infectious Disease was consulted with concern for sepsis in view of the new fever, elevated white count and hypotension requiring pressor support. Most of the information has been obtained from review of the chart, as the patient is currently lethargic on the BiPAP and is unable to provide any history. Her was present at the bedside. He did provide some information. REVIEW OF SYSTEMS: Review of systems could not be reliably obtained. The positive points have been mentioned in the HPI. PAST MEDICAL HISTORY: 1. Coronary artery disease. 2. Diabetes mellitus. 3. COPD. 4. DVT. 5. Hyperlipidemia. 6. Hypertension. 7. Pulmonary embolism. 8. Renal insufficiency. 9. Stage III kidney disease. PAST SURGICAL HISTORY: 1. . 2. Coronary artery bypass grafting. 3. Heart catheterization. 4. Back surgery. 5. Lumbar diskectomy. SOCIAL HISTORY: Remote history of smoking. No drinking or drug use. FAMILY HISTORY: Brother with history of CVA, TIA. Father with history of COPD and ND. Mother with history of CVA and DVT. ALLERGIES: 1. PENICILLIN. 2. MORPHINE. 3. SULFAMETHOXAZOLE. CURRENT MEDICATIONS: 1. Tylenol. 2. Ventolin. 3. Xanax. 4. Aspirin. 5. Tums. 6. Heparin. 7. Nicotine patch. 8. Norepinephrine. 9. Zosyn. 10.Pravachol. 11.Ambien. PHYSICAL EXAMINATION: Blood pressure is 98/47 with a pulse of 87, temperature of 98. T-max is 101. She is 100% on BiPAP. General description is a middle-aged female lying in bed in no distress. No tachypnea or accessory muscle of respiration use. HEENT examination shows pallor. No scleral icterus. Oral mucosa membrane is dry. NECK: Trachea is central. No thyromegaly. LUNGS: Unlabored breathing. Coarse breath sounds at the bases bilaterally. No wheeze. HEART: S1, S2. Regular rate and rhythm. ABDOMEN: Soft. No tenderness. No organomegaly. EXTREMITIES: One plus edema of the feet. SKIN EXAMINATION: No rash or mass palpable. Neurologically, the patient is currently lethargic. Orientation could not be determined. LABS: Hemoglobin 7.5, white count 11.9 with a BUN of 89 and creatinine 5.85, potassium 6.4. Liver enzymes are normal. Chest x-ray report as mentioned above. DIAGNOSTIC IMPRESSION/PLAN: 1. Patient with sepsis in this patient who did have a fever of 101 degrees Fahrenheit. The patient did have significant hypotension requiring pressor support; tachycardic with elevated white count. With worsening respiratory status and evidence of increase in sputum pressure, there is concern for possible pneumonia, possibly gram- negative. Aspiration etiology cannot be entirely excluded. 2. Patient who did have worsening of her kidney function with underlying renal insufficiency; this limits the number of antibiotics that can be safely used. 3. Patient with PENICILLIN AND SULFA ALLERGY, which limits the number of antibiotics; however, clinically doubt penicillin allergy. The patient tolerated doses of Zosyn without any problem. PLAN: 1. We will try to obtain sputum for Gram stain and culture and sensitivity. 2. Follow-up blood culture has already been ordered. 3. Zosyn 3.375 grams q.12 hours while watching her clinical course closely. 4. We will follow up on clinical condition and culture to further adjust medication if needed. was present at the bedside. His questions and concerns were answered. MMODL / IJN: [id number] /
[2018-11-07 17:18] LABS: Glucose,Whole Blood 169 mg/dL (75-99)
[2018-11-07 19:37] LABS: Glucose,Whole Blood 120 mg/dL (75-99)
[2018-11-07] MEDS: NOREPINEPHRINE 16 MG in SODIUM CHLORIDE 0.9% 250 ML IV SCH (20:09)
[2018-11-07] MEDS: PIPERACILLIN-TAZOBACTAM 3.375 GM in SODIUM CHLORIDE 0.9% 100 ML IVPB SCH (20:13)
[2018-11-07] MEDS: PRAVASTATIN SODIUM 20 MG TAB PO SCH (20:13)
[2018-11-07] MEDS: MONTELUKAST 10 MG TAB PO SCH (20:13)
[2018-11-07 20:16] LABS: Glucose,Whole Blood 145 mg/dL (75-99)
[2018-11-07 21:21] LABS: Glucose,Whole Blood 193 mg/dL (75-99)
[2018-11-07 22:21] LABS: Glucose,Whole Blood 195 mg/dL (75-99)
[2018-11-07 23:21] LABS: Glucose,Whole Blood 164 mg/dL (75-99)
--- NOTE | 2018-11-08 00:06 | PN ---
PROGRESS NOTE A 58-year-old white female transferred to the ICU with pulmonary embolism, pulmonary hypertension, DVT, systolic CHF, COPD. Creatinine was increased up to 5. She is going to get dialysis today, which will help improve her breathing. Remains on BiPAP and Levophed 15 mcg/hour for hypotension. Cardiovascular S1-S2. Lungs, rales at the bases. Hematologic positive Homans. GI is distended. ASSESSMENT: 1. Hypoxemia. 2. Deep venous thrombosis. 3. Pulmonary embolism. 4. Pulmonary hypertension. 5. Chronic obstructive pulmonary disease. 6. Systolic congestive heart failure. PLAN: Continue current treatments. Dialysis due to acute tubular necrosis and acute renal failure. ICU TIME: 30 minutes. MMODL / IJN: [id number] /
[2018-11-08 00:16] LABS: Glucose,Whole Blood 175 mg/dL (75-99)
[2018-11-08 01:14] LABS: Glucose,Whole Blood 173 mg/dL (75-99)
[2018-11-08 02:18] LABS: Glucose,Whole Blood 184 mg/dL (75-99)
[2018-11-08 03:33] LABS: Glucose,Whole Blood 170 mg/dL (75-99)
[2018-11-08 04:29] LABS: Glucose,Whole Blood 155 mg/dL (75-99)
[2018-11-08 05:05] LABS: Anisocytosis Slight; Basophils % (A) 0 %; Eosinophils % (A) 0 %; HCT 22.3 % (34.0-46.0); Hypochromasia Marked; Lymphocytes % (A) 11 %; MCH 28.8 pg (25.0-35.0); MCHC 28.9 g/dL (31.0-37.0); MCV 99.4 fL (80.0-100.0); Macrocytosis Slight; Mean Platelet Volume 6.4; Monocytes # (A) 0.5 k/uL (0-1.0); Monocytes % (A) 6 %; Neutrophils # (A) 7.8 k/uL (1.3-7.7); Neutrophils % (A) 81 %; Platelet Count 289 k/uL (150-450); RBC 2.25 m/uL (3.80-5.40); RDW 17.7 % (11.5-15.5); WBC 9.6 k/uL (3.8-10.6)
[2018-11-08 05:07] LABS: Albumin 2.4 g/dL (3.5-5.0); Calcium 7.4 mg/dL (8.4-10.2); HGB 6.5 gm/dL (11.4-16.0); Magnesium 2.7 mg/dL (1.6-2.3); Phosphorus 5.4 mg/dL (2.5-4.5); Potassium 5.1 mmol/L (3.5-5.1); Total Bilirubin 0.3 mg/dL (0.2-1.3); Total Protein 4.6 g/dL (6.3-8.2)
[2018-11-08 05:36] LABS: Glucose,Whole Blood 139 mg/dL (75-99)
[2018-11-08 06:21] LABS: Glucose,Whole Blood 140 mg/dL (75-99)
[2018-11-08] MEDS: SODIUM CHLORIDE 0.9% 1,000 ML IV SCH ×2 (06:51→18:17)
[2018-11-08 07:04] LABS: Glucose,Whole Blood 146 mg/dL (75-99)
[2018-11-08 07:32] LABS: ABG HCO3 26 mmol/L (21-25); ABG PCO2 60 mmHg (35-45); ABG PH 7.24 (7.35-7.45); ABG PO2 127 mmHg (83-108); ABG TCO2 27 mmol/L (19-24)
[2018-11-08] MEDS: ALBUTEROL NEBULIZED 2.5 MG/3 ML INHALATION PRN (07:37)
--- NOTE | 2018-11-08 08:15 | XR ---
EXAMINATION TYPE: XR chest 1V DATE OF EXAM: 11/08/2018 CLINICAL HISTORY: Difficulty breathing progress study. TECHNIQUE: Single AP portable semiupright view of the chest is obtained. COMPARISON: Chest x-ray from one day earlier and older studies. FINDINGS: There is stable right internal jugular central venous catheter. Overlying EKG leads are re demonstrated. Sternal wires are again seen. Right hilar surgical clips are redemonstrated. Cardiac si lhouette size is stable and mildly enlarged with bibasilar opacities redemonstrated. Upper lungs are clear without pneumothorax. Osseous structures are intact. IMPRESSION: Overall stable findings, mild cardiomegaly with suspected small bilateral pleural effus ions and associated compressive atelectasis and/or less likely infiltrate.
[2018-11-08 08:40] LABS: Glucose,Whole Blood 178 mg/dL (75-99)
[2018-11-08] MEDS: FLUTICASONE 110 MCG INHALER INHALATION SCH ×2 (08:48→20:17)
[2018-11-08 09:12] LABS: Glucose,Whole Blood 170 mg/dL (75-99)
[2018-11-08] MEDS: FERROUS SULFATE 325 MG TAB PO SCH (09:49)
[2018-11-08] MEDS: ASPIRIN 81 MG PO SCH (09:49)
[2018-11-08] MEDS: NICOTINE 21MG/24HR PATCH TRANSDERM SCH (09:55)
[2018-11-08] MEDS: PIPERACILLIN-TAZOBACTAM 3.375 GM in SODIUM CHLORIDE 0.9% 100 ML IVPB SCH ×2 (09:55→20:19)
[2018-11-08] MEDS: PANTOPRAZOLE 40 MG/10 ML VIAL IV SCH ×2 (09:55→20:19)
[2018-11-08] MEDS ORDERED: DESMOPRESSIN ACETATE 34 MCG in SODIUM CHLORIDE 0.9% 50 ML IVPB ONE (09:55)
--- NOTE | 2018-11-08 09:59 | P.PN ---
Subjective Patient is seen in follow-up for acute kidney injury on chronic kidney disease. Patient has chronic kidney disease stage IV with baseline creatinine near 3 secondary to diabetic kidney disease. Due to worsening renal function and oliguria, she was started on hemodialysis on November 07. Currently seen while undergoing hemodialysis. She is on BiPAP. Mentation has not improved much. Currently on 18 mics of Levophed. Remains oliguric. Hemoglobin was 6.5 this morning. She was receiving a unit of blood with dialysis. According to the nurse she's been having black tarry stools. Afebrile. Currently on vasopressors. General: The patient appeared well nourished and normally developed. HEENT: Head exam is unremarkable. Neck is without jugular venous distension. On BiPAP. LUNGS: Breath sounds decreased. HEART: Rate and Rhythm are regular. First and second heart sounds normal. No murmurs, rubs or gallops. ABDOMEN: Abdominal exam reveals normal bowel sounds. Non-tender and non- distended. No evidence of peritonitis. EXTREMITITES: Trace edema. Objective - Vital Signs Vital signs: Vital Signs Temp 97.6 F 11/08/18 09:28 Pulse 93 11/08/18 09:30 Resp 18 11/08/18 09:30 BP 118/39 11/08/18 09:30 Pulse Ox 99 11/08/18 09:30 Intake & Output 11/07/18 11/08/18 11/08/18 18:59 06:59 18:59 Intake Total 2116.539 1226.346 430.992 Output Total 16 48 13 Balance 2100.539 1178.346 417.992 Weight 113.2 kg 115.2 kg Intake: IV 1500 1200 300 Calcium Gluconate 1,000 100 mg In Sodium Chloride 0.9 % 100 ml @ 100 mls/hr IVPB ONCE ONE Rx#: [id number] Dextrose 5% in Water 1, 100 000 ml @ 50 mls/hr IV . Q23H [facility] with Sodium Bicarb (1 Meq/ml) 150 ml Rx#:[id number] Piperacillin-Tazobactam 2 100 .25 gm In Sodium Chloride 0.9% 100 ml @ 25 mls/hr IVPB Q8H [facility] Rx#: [id number] Sodium Chloride 0.9% 1, 1200 1200 300 000 ml @ 100 mls/hr IV . Q10H [facility] Rx#:[id number] Intake, IV Titration 616.539 26.346 130.992 Amount Heparin Sod,Pork in 0.45% 137.145 NaCl 25,000 unit In 0.45 % NaCl 1 250ml.bag @ 18 UNITS/KG/HR 14.76 mls/hr IV .[id number] [facility] Rx#: [id number] Insulin Regular 100 unit 27.270 19.014 0 In Sodium Chloride 0.9% 100 ml @ Per Protocol IV .Q0M [facility] Rx#:[id number] Norepinephrine 16 mg In 7.332 130.992 Sodium Chloride 0.9% 250 ml @ Titrate IV .Q0M [facility] Rx#:[id number] Norepinephrine 4 mg In 452.124 Sodium Chloride 0.9% 250 ml @ Titrate IV .Q0M [facility] Rx#:[id number] Blood Product 0 Rc As-1 Unit 0 [id number] Output: Urine 16 48 13 Other: Voiding Method Indwelling Catheter Indwelling Catheter - Labs CBC & Chem 7: 11/08/18 04:23 11/08/18 04:23 Labs: Abnormal Lab Results - Last 24 Hours (Table) 11/07/18 11/07/18 11/07/18 Range/Units 11:02 13:08 14:23 RBC (3.80-5.40) m/uL Hgb (11.4-16.0) gm/dL Hct (34.0-46.0) % MCHC (31.0-37.0) g/dL RDW (11.5-15.5) % Neutrophils # (1.3-7.7) k/uL ABG pH (7.35-7.45) ABG pCO2 (35-45) mmHg ABG pO2 (83-108) mmHg ABG HCO3 (21-25) mmol/L ABG Total CO2 (19-24) mmol/L ABG O2 Saturation (94-97) % BUN (7-17) mg/dL Creatinine (0.52-1.04) mg/dL Glucose (74-99) mg/dL POC Glucose (mg/dL) 321 H 290 H 233 H (75-99) mg/dL Calcium (8.4-10.2) mg/dL Phosphorus (2.5-4.5) mg/dL Magnesium (1.6-2.3) mg/dL AST (14-36) U/L Total Protein (6.3-8.2) g/dL Albumin (3.5-5.0) g/dL Crossmatch 11/07/18 11/07/18 11/07/18 Range/Units 16:10 17:09 19:07 RBC (3.80-5.40) m/uL Hgb (11.4-16.0) gm/dL Hct (34.0-46.0) % MCHC (31.0-37.0) g/dL RDW (11.5-15.5) % Neutrophils # (1.3-7.7) k/uL ABG pH (7.35-7.45) ABG pCO2 (35-45) mmHg ABG pO2 (83-108) mmHg ABG HCO3 (21-25) mmol/L ABG Total CO2 (19-24) mmol/L ABG O2 Saturation (94-97) % BUN (7-17) mg/dL Creatinine (0.52-1.04) mg/dL Glucose (74-99) mg/dL POC Glucose (mg/dL) 195 H 169 H 120 H (75-99) mg/dL Calcium (8.4-10.2) mg/dL Phosphorus (2.5-4.5) mg/dL Magnesium (1.6-2.3) mg/dL AST (14-36) U/L Total Protein (6.3-8.2) g/dL Albumin (3.5-5.0) g/dL Crossmatch 11/07/18 11/07/18 11/07/18 Range/Units 20:05 21:10 22:10 RBC (3.80-5.40) m/uL Hgb (11.4-16.0) gm/dL Hct (34.0-46.0) % MCHC (31.0-37.0) g/dL RDW (11.5-15.5) % Neutrophils # (1.3-7.7) k/uL ABG pH (7.35-7.45) ABG pCO2 (35-45) mmHg ABG pO2 (83-108) mmHg ABG HCO3 (21-25) mmol/L ABG Total CO2 (19-24) mmol/L ABG O2 Saturation (94-97) % BUN (7-17) mg/dL Creatinine (0.52-1.04) mg/dL Glucose (74-99) mg/dL POC Glucose (mg/dL) 145 H 193 H 195 H (75-99) mg/dL Calcium (8.4-10.2) mg/dL Phosphorus (2.5-4.5) mg/dL Magnesium (1.6-2.3) mg/dL AST (14-36) U/L Total Protein (6.3-8.2) g/dL Albumin (3.5-5.0) g/dL Crossmatch 11/07/18 11/08/18 11/08/18 Range/Units 23:09 00:05 01:02 RBC (3.80-5.40) m/uL Hgb (11.4-16.0) gm/dL Hct (34.0-46.0) % MCHC (31.0-37.0) g/dL RDW (11.5-15.5) % Neutrophils # (1.3-7.7) k/uL ABG pH (7.35-7.45) ABG pCO2 (35-45) mmHg ABG pO2 (83-108) mmHg ABG HCO3 (21-25) mmol/L ABG Total CO2 (19-24) mmol/L ABG O2 Saturation (94-97) % BUN (7-17) mg/dL Creatinine (0.52-1.04) mg/dL Glucose (74-99) mg/dL POC Glucose (mg/dL) 164 H 175 H 173 H (75-99) mg/dL Calcium (8.4-10.2) mg/dL Phosphorus (2.5-4.5) mg/dL Magnesium (1.6-2.3) mg/dL AST (14-36) U/L Total Protein (6.3-8.2) g/dL Albumin (3.5-5.0) g/dL Crossmatch 11/08/18 11/08/18 11/08/18 Range/Units 02:06 03:22 04:07 RBC (3.80-5.40) m/uL Hgb (11.4-16.0) gm/dL Hct (34.0-46.0) % MCHC (31.0-37.0) g/dL RDW (11.5-15.5) % Neutrophils # (1.3-7.7) k/uL ABG pH (7.35-7.45) ABG pCO2 (35-45) mmHg ABG pO2 (83-108) mmHg ABG HCO3 (21-25) mmol/L ABG Total CO2 (19-24) mmol/L ABG O2 Saturation (94-97) % BUN (7-17) mg/dL Creatinine (0.52-1.04) mg/dL Glucose (74-99) mg/dL POC Glucose (mg/dL) 184 H 170 H 155 H (75-99) mg/dL Calcium (8.4-10.2) mg/dL Phosphorus (2.5-4.5) mg/dL Magnesium (1.6-2.3) mg/dL AST (14-36) U/L Total Protein (6.3-8.2) g/dL Albumin (3.5-5.0) g/dL Crossmatch 11/08/18 11/08/18 11/08/18 Range/Units 04:23 04:23 05:24 RBC 2.25 L (3.80-5.40) m/uL Hgb 6.5 L* (11.4-16.0) gm/dL Hct 22.3 L (34.0-46.0) % MCHC 28.9 L (31.0-37.0) g/dL RDW 17.7 H (11.5-15.5) % Neutrophils # 7.8 H (1.3-7.7) k/uL ABG pH (7.35-7.45) ABG pCO2 (35-45) mmHg ABG pO2 (83-108) mmHg ABG HCO3 (21-25) mmol/L ABG Total CO2 (19-24) mmol/L ABG O2 Saturation (94-97) % BUN 67 H (7-17) mg/dL Creatinine 5.25 H (0.52-1.04) mg/dL Glucose 145 H (74-99) mg/dL POC Glucose (mg/dL) 139 H (75-99) mg/dL Calcium 7.4 L (8.4-10.2) mg/dL Phosphorus 5.4 H (2.5-4.5) mg/dL Magnesium 2.7 H (1.6-2.3) mg/dL AST 163 H (14-36) U/L Total Protein 4.6 L (6.3-8.2) g/dL Albumin 2.4 L (3.5-5.0) g/dL Crossmatch 11/08/18 11/08/18 11/08/18 Range/Units 05:41 06:09 06:53 RBC (3.80-5.40) m/uL Hgb (11.4-16.0) gm/dL Hct (34.0-46.0) % MCHC (31.0-37.0) g/dL RDW (11.5-15.5) % Neutrophils # (1.3-7.7) k/uL ABG pH (7.35-7.45) ABG pCO2 (35-45) mmHg ABG pO2 (83-108) mmHg ABG HCO3 (21-25) mmol/L ABG Total CO2 (19-24) mmol/L ABG O2 Saturation (94-97) % BUN (7-17) mg/dL Creatinine (0.52-1.04) mg/dL Glucose (74-99) mg/dL POC Glucose (mg/dL) 140 H 146 H (75-99) mg/dL Calcium (8.4-10.2) mg/dL Phosphorus (2.5-4.5) mg/dL Magnesium (1.6-2.3) mg/dL AST (14-36) U/L Total Protein (6.3-8.2) g/dL Albumin (3.5-5.0) g/dL Crossmatch See Detail 11/08/18 11/08/18 11/08/18 Range/Units 07:30 08:28 09:00 RBC (3.80-5.40) m/uL Hgb (11.4-16.0) gm/dL Hct (34.0-46.0) % MCHC (31.0-37.0) g/dL RDW (11.5-15.5) % Neutrophils # (1.3-7.7) k/uL ABG pH 7.24 L (7.35-7.45) ABG pCO2 60 H (35-45) mmHg ABG pO2 127 H (83-108) mmHg ABG HCO3 26 H (21-25) mmol/L ABG Total CO2 27 H (19-24) mmol/L ABG O2 Saturation 99.0 H (94-97) % BUN (7-17) mg/dL Creatinine (0.52-1.04) mg/dL Glucose (74-99) mg/dL POC Glucose (mg/dL) 178 H 170 H (75-99) mg/dL Calcium (8.4-10.2) mg/dL Phosphorus (2.5-4.5) mg/dL Magnesium (1.6-2.3) mg/dL AST (14-36) U/L Total Protein (6.3-8.2) g/dL Albumin (3.5-5.0) g/dL Crossmatch Microbiology - Last 24 Hours (Table) 11/07/18 00:04 Blood Culture - Preliminary Blood No Growth after 24 hours 11/07/18 06:04 Gram Stain - Preliminary Sputum Sputum Culture - Preliminary Assessment and Plan Plan: Assessment: 1. Acute kidney injury secondary to ATN secondary to hypotension. Creatinine peaked at 5.85 and November 07 and was also oliguric. Currently hemodialysis dependent. No hydronephrosis noted on renal ultrasound. 2. Chronic kidney disease stage IV secondary to diabetic kidney disease and nephrosclerosis with baseline creatinine near 3 according to the patient. 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 3. Systolic CHF with ejection fraction of 30-35% with severe pulmonary hypertension and moderate tricuspid regurgitation. 4. Volume overload. Better. 5. Hypervolemic hyponatremia. Better. 6. Hyperkalemia secondary to acute kidney injury. Better. 7. Diabetes mellitus. 8. Hypotension maintained on 18 mics of Levophed. 9. Hyperphosphatemia secondary to acute kidney injury. Improved postdialysis. 10. Acute blood loss anemia secondary to GI bleed. Currently receiving a unit of blood transfusion. Plan: Decrease normal saline to 50 mL an hour. Follow-up cultures. Wean Levophed. Currently seen while undergoing second treatment of hemodialysis. Third treatment tomorrow. Continue to monitor renal function and urine output closely. I will give her 1 dose of IV DDAVP today.
[2018-11-08 10:07] LABS: Glucose,Whole Blood 144 mg/dL (75-99)
[2018-11-08] MEDS ORDERED: DEXTROSE 5% IN WATER 100 ML with AMIODARONE 150 MG IV ONE (11:09)
[2018-11-08 11:18] LABS: Glucose,Whole Blood 142 mg/dL (75-99)
--- NOTE | 2018-11-08 11:40 | P.PN ---
Subjective Progress Note Date: 11/08/18 Principal diagnosis: CHF/cardiomyopathy This is a pleasant 58-year-old female patient with an extensive past medical history for her age consistent of coronary artery disease, peripheral arterial disease, diabetes, hypertension, dyslipidemia, and chronic kidney disease, was admitted to the hospital with chest discomfort and was ruled in for acute non- ST patient myocardial infarction and also with congestive heart failure secondary to systolic dysfunction. The patient was treated medically for the non-STEMI The echocardiogram revealed impaired LV function with EF of 35%, mild aortic stenosis, severe pulmonary hypertension, and moderate tricuspid regurgitation. I'll follow-up with the patient today, November [id number], she continues to be unstable hemodynamically and requiring vasopressors. She was transferred to the intensive care unit yesterday with a change in mental status speech continues to be confused and not oriented 2. She received dialysis yesterday and today as well. She continues to have GI bleeding and the hemoglobin today is 6.5. I did recommend giving the patient 20 years of packed RBC because of the anemia and because of the low blood pressure. Heparin is on hold because of the bleeding. 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 Objective - Vital Signs Vital signs: Vital Signs Temp 97.7 F 11/08/18 10:30 Pulse 146 H 11/08/18 11:15 Resp 21 11/08/18 11:15 BP 119/52 11/08/18 11:15 Pulse Ox 47 L 11/08/18 11:15 Intake & Output 11/07/18 11/08/18 11/08/18 18:59 06:59 18:59 Intake Total 2116.539 1226.346 730.992 Output Total 16 48 18 Balance 2100.539 1178.346 712.992 Weight 113.2 kg 115.2 kg Intake: IV 1500 1200 600 Calcium Gluconate 1,000 100 mg In Sodium Chloride 0.9 % 100 ml @ 100 mls/hr IVPB ONCE ONE Rx#: [id number] Dextrose 5% in Water 1, 100 000 ml @ 50 mls/hr IV . Q23H [facility] with Sodium Bicarb (1 Meq/ml) 150 ml Rx#:[id number] Piperacillin-Tazobactam 2 100 .25 gm In Sodium Chloride 0.9% 100 ml @ 25 mls/hr IVPB Q8H [facility] Rx#: [id number] Sodium Chloride 0.9% 1, 1200 1200 600 000 ml @ 50 mls/hr IV . Q20H [facility] Rx#:[id number] Intake, IV Titration 616.539 26.346 130.992 Amount Heparin Sod,Pork in 0.45% 137.145 NaCl 25,000 unit In 0.45 % NaCl 1 250ml.bag @ 18 UNITS/KG/HR 14.76 mls/hr IV .[id number] [facility] Rx#: [id number] Insulin Regular 100 unit 27.270 19.014 0 In Sodium Chloride 0.9% 100 ml @ Per Protocol IV .Q0M [facility] Rx#:[id number] Norepinephrine 16 mg In 7.332 130.992 Sodium Chloride 0.9% 250 ml @ Titrate IV .Q0M [facility] Rx#:[id number] Norepinephrine 4 mg In 452.124 Sodium Chloride 0.9% 250 ml @ Titrate IV .Q0M [facility] Rx#:[id number] Blood Product 0 Rc As-1 Unit 0 [id number] Output: Urine 16 48 18 Other: Voiding Method Indwelling Catheter Indwelling Catheter # Bowel Movements 1 - Constitutional General appearance: Present: mild distress - Respiratory Respiratory: bilateral: diminished - Cardiovascular Rhythm: regular Heart sounds: normal: S1, S2 - Labs CBC & Chem 7: 11/08/18 04:23 11/08/18 04:23 Labs: Abnormal Lab Results - Last 24 Hours (Table) 11/07/18 11/07/18 11/07/18 Range/Units 13:08 14:23 16:10 RBC (3.80-5.40) m/uL Hgb (11.4-16.0) gm/dL Hct (34.0-46.0) % MCHC (31.0-37.0) g/dL RDW (11.5-15.5) % Neutrophils # (1.3-7.7) k/uL ABG pH (7.35-7.45) ABG pCO2 (35-45) mmHg ABG pO2 (83-108) mmHg ABG HCO3 (21-25) mmol/L ABG Total CO2 (19-24) mmol/L ABG O2 Saturation (94-97) % BUN (7-17) mg/dL Creatinine (0.52-1.04) mg/dL Glucose (74-99) mg/dL POC Glucose (mg/dL) 290 H 233 H 195 H (75-99) mg/dL Calcium (8.4-10.2) mg/dL Phosphorus (2.5-4.5) mg/dL Magnesium (1.6-2.3) mg/dL AST (14-36) U/L Total Protein (6.3-8.2) g/dL Albumin (3.5-5.0) g/dL Crossmatch 11/07/18 11/07/18 11/07/18 Range/Units 17:09 19:07 20:05 RBC (3.80-5.40) m/uL Hgb (11.4-16.0) gm/dL Hct (34.0-46.0) % MCHC (31.0-37.0) g/dL RDW (11.5-15.5) % Neutrophils # (1.3-7.7) k/uL ABG pH (7.35-7.45) ABG pCO2 (35-45) mmHg ABG pO2 (83-108) mmHg ABG HCO3 (21-25) mmol/L ABG Total CO2 (19-24) mmol/L ABG O2 Saturation (94-97) % BUN (7-17) mg/dL Creatinine (0.52-1.04) mg/dL Glucose (74-99) mg/dL POC Glucose (mg/dL) 169 H 120 H 145 H (75-99) mg/dL Calcium (8.4-10.2) mg/dL Phosphorus (2.5-4.5) mg/dL Magnesium (1.6-2.3) mg/dL AST (14-36) U/L Total Protein (6.3-8.2) g/dL Albumin (3.5-5.0) g/dL Crossmatch 11/07/18 11/07/18 11/07/18 Range/Units 21:10 22:10 23:09 RBC (3.80-5.40) m/uL Hgb (11.4-16.0) gm/dL Hct (34.0-46.0) % MCHC (31.0-37.0) g/dL RDW (11.5-15.5) % Neutrophils # (1.3-7.7) k/uL ABG pH (7.35-7.45) ABG pCO2 (35-45) mmHg ABG pO2 (83-108) mmHg ABG HCO3 (21-25) mmol/L ABG Total CO2 (19-24) mmol/L ABG O2 Saturation (94-97) % BUN (7-17) mg/dL Creatinine (0.52-1.04) mg/dL Glucose (74-99) mg/dL POC Glucose (mg/dL) 193 H 195 H 164 H (75-99) mg/dL Calcium (8.4-10.2) mg/dL Phosphorus (2.5-4.5) mg/dL Magnesium (1.6-2.3) mg/dL AST (14-36) U/L Total Protein (6.3-8.2) g/dL Albumin (3.5-5.0) g/dL Crossmatch 11/08/18 11/08/18 11/08/18 Range/Units 00:05 01:02 02:06 RBC (3.80-5.40) m/uL Hgb (11.4-16.0) gm/dL Hct (34.0-46.0) % MCHC (31.0-37.0) g/dL RDW (11.5-15.5) % Neutrophils # (1.3-7.7) k/uL ABG pH (7.35-7.45) ABG pCO2 (35-45) mmHg ABG pO2 (83-108) mmHg ABG HCO3 (21-25) mmol/L ABG Total CO2 (19-24) mmol/L ABG O2 Saturation (94-97) % BUN (7-17) mg/dL Creatinine (0.52-1.04) mg/dL Glucose (74-99) mg/dL POC Glucose (mg/dL) 175 H 173 H 184 H (75-99) mg/dL Calcium (8.4-10.2) mg/dL Phosphorus (2.5-4.5) mg/dL Magnesium (1.6-2.3) mg/dL AST (14-36) U/L Total Protein (6.3-8.2) g/dL Albumin (3.5-5.0) g/dL Crossmatch 11/08/18 11/08/18 11/08/18 Range/Units 03:22 04:07 04:23 RBC 2.25 L (3.80-5.40) m/uL Hgb 6.5 L* (11.4-16.0) gm/dL Hct 22.3 L (34.0-46.0) % MCHC 28.9 L (31.0-37.0) g/dL RDW 17.7 H (11.5-15.5) % Neutrophils # 7.8 H (1.3-7.7) k/uL ABG pH (7.35-7.45) ABG pCO2 (35-45) mmHg ABG pO2 (83-108) mmHg ABG HCO3 (21-25) mmol/L ABG Total CO2 (19-24) mmol/L ABG O2 Saturation (94-97) % BUN (7-17) mg/dL Creatinine (0.52-1.04) mg/dL Glucose (74-99) mg/dL POC Glucose (mg/dL) 170 H 155 H (75-99) mg/dL Calcium (8.4-10.2) mg/dL Phosphorus (2.5-4.5) mg/dL Magnesium (1.6-2.3) mg/dL AST (14-36) U/L Total Protein (6.3-8.2) g/dL Albumin (3.5-5.0) g/dL Crossmatch 11/08/18 11/08/18 11/08/18 Range/Units 04:23 05:24 05:41 RBC (3.80-5.40) m/uL Hgb (11.4-16.0) gm/dL Hct (34.0-46.0) % MCHC (31.0-37.0) g/dL RDW (11.5-15.5) % Neutrophils # (1.3-7.7) k/uL ABG pH (7.35-7.45) ABG pCO2 (35-45) mmHg ABG pO2 (83-108) mmHg ABG HCO3 (21-25) mmol/L ABG Total CO2 (19-24) mmol/L ABG O2 Saturation (94-97) % BUN 67 H (7-17) mg/dL Creatinine 5.25 H (0.52-1.04) mg/dL Glucose 145 H (74-99) mg/dL POC Glucose (mg/dL) 139 H (75-99) mg/dL Calcium 7.4 L (8.4-10.2) mg/dL Phosphorus 5.4 H (2.5-4.5) mg/dL Magnesium 2.7 H (1.6-2.3) mg/dL AST 163 H (14-36) U/L Total Protein 4.6 L (6.3-8.2) g/dL Albumin 2.4 L (3.5-5.0) g/dL Crossmatch See Detail 11/08/18 11/08/18 11/08/18 Range/Units 06:09 06:53 07:30 RBC (3.80-5.40) m/uL Hgb (11.4-16.0) gm/dL Hct (34.0-46.0) % MCHC (31.0-37.0) g/dL RDW (11.5-15.5) % Neutrophils # (1.3-7.7) k/uL ABG pH 7.24 L (7.35-7.45) ABG pCO2 60 H (35-45) mmHg ABG pO2 127 H (83-108) mmHg ABG HCO3 26 H (21-25) mmol/L ABG Total CO2 27 H (19-24) mmol/L ABG O2 Saturation 99.0 H (94-97) % BUN (7-17) mg/dL Creatinine (0.52-1.04) mg/dL Glucose (74-99) mg/dL POC Glucose (mg/dL) 140 H 146 H (75-99) mg/dL Calcium (8.4-10.2) mg/dL Phosphorus (2.5-4.5) mg/dL Magnesium (1.6-2.3) mg/dL AST (14-36) U/L Total Protein (6.3-8.2) g/dL Albumin (3.5-5.0) g/dL Crossmatch 11/08/18 11/08/18 11/08/18 Range/Units 08:28 09:00 09:56 RBC (3.80-5.40) m/uL Hgb (11.4-16.0) gm/dL Hct (34.0-46.0) % MCHC (31.0-37.0) g/dL RDW (11.5-15.5) % Neutrophils # (1.3-7.7) k/uL ABG pH (7.35-7.45) ABG pCO2 (35-45) mmHg ABG pO2 (83-108) mmHg ABG HCO3 (21-25) mmol/L ABG Total CO2 (19-24) mmol/L ABG O2 Saturation (94-97) % BUN (7-17) mg/dL Creatinine (0.52-1.04) mg/dL Glucose (74-99) mg/dL POC Glucose (mg/dL) 178 H 170 H 144 H (75-99) mg/dL Calcium (8.4-10.2) mg/dL Phosphorus (2.5-4.5) mg/dL Magnesium (1.6-2.3) mg/dL AST (14-36) U/L Total Protein (6.3-8.2) g/dL Albumin (3.5-5.0) g/dL Crossmatch 11/08/18 Range/Units 11:07 RBC (3.80-5.40) m/uL Hgb (11.4-16.0) gm/dL Hct (34.0-46.0) % MCHC (31.0-37.0) g/dL RDW (11.5-15.5) % Neutrophils # (1.3-7.7) k/uL ABG pH (7.35-7.45) ABG pCO2 (35-45) mmHg ABG pO2 (83-108) mmHg ABG HCO3 (21-25) mmol/L ABG Total CO2 (19-24) mmol/L ABG O2 Saturation (94-97) % BUN (7-17) mg/dL Creatinine (0.52-1.04) mg/dL Glucose (74-99) mg/dL POC Glucose (mg/dL) 142 H (75-99) mg/dL Calcium (8.4-10.2) mg/dL Phosphorus (2.5-4.5) mg/dL Magnesium (1.6-2.3) mg/dL AST (14-36) U/L Total Protein (6.3-8.2) g/dL Albumin (3.5-5.0) g/dL Crossmatch Microbiology - Last 24 Hours (Table) 11/07/18 00:04 Blood Culture - Preliminary Blood No Growth after 24 hours 11/07/18 06:04 Gram Stain - Preliminary Sputum Sputum Culture - Preliminary Assessment and Plan Assessment: Assessment #1 systolic congestive heart failure exacerbation #2 acute non-ST elevation myocardial infarction #3 acute on chronic renal failure #4 peripheral vascular disease #5 systemic hypertension #6 hyperkalemia Plan #1 the patient is on dialysis now #2 hold any blood pressure medication #3 continue support the blood pressure was vasopressors #4 blood transfusion #5 hold the heparin #6 monitor the hemoglobin
[2018-11-08] MEDS: AMIODARONE 450 MG in DEXTROSE 5% IN WATER 250 ML IV SCH ×4 (11:44→18:48)
[2018-11-08] MEDS: NOREPINEPHRINE 16 MG in SODIUM CHLORIDE 0.9% 250 ML IV SCH (11:45)
[2018-11-08] MEDS: INSULIN REGULAR 100 UNIT in SODIUM CHLORIDE 0.9% 100 ML IV SCH (11:45)
[2018-11-08 12:18] LABS: Glucose,Whole Blood 169 mg/dL (75-99)
[2018-11-08 13:26] LABS: Glucose,Whole Blood 176 mg/dL (75-99)
--- NOTE | 2018-11-08 13:42 | P.PN ---
Subjective Progress Note Date: 11/08/18 Principal diagnosis: Acute renal failure, altered mental status likely related to acute renal failure , hypotension, severe sepsis, hypertension, and urea Right lower extremity venous thrombosis, chronic intermittent thromboembolism, pulmonary hypertension, biventricular failure, acute on chronic systolic heart failure, acute on chronic renal failure is stage IV, small bilateral pleural effusion likely related to heart failure, morbid obesity, suspect sleep disorder breathing and sleep apnea 11/08/2018, patient seen eval reexamined during the rounds clinically patient remains marginal continue require vasopressors currently patient is on 19 mics of levo fed drip, during dialysis patient had episode of the tachyarrhythmia requiring amiodarone now patient after the initial IV boluses back to sinus rhythm, hemodynamic status is overall stable but marginal, urine output remains very low, patient did tolerate the hemodialysis fairly well earlier this morning except the findings as noted to more old bleeding noted it appears to be old blood, patient is currently on desmopressin drip, also has been infused with 1 unit of packed RBC, heparin drip has been on hold since yesterday, vascular surgery has been consulted for evaluation of IVC filter as patient has deep venous thrombosis right lower extremity, sugars continue to be run on the higher side remains on insulin drip, patient is on proton pump inhibitor IV with frequent monitoring with monitoring observation her hemoglobin him to keep hemoglobin over 7 no active bleeding however has been noted by GI services has been consulted as well for GI bleed, Estrace standpoint tolerating BiPAP very well currently patient is on BiPAP with 12 of BiPAP the and 5 EPAP respiratory rate is 22 her spontaneous tidal volumes ranging in mid 400 range, she is on 40 % oxygen, arterial blood gas couldn't be drawn, labs medications and radiographic studies reviewed culture results are reviewed as well no positive cultures been seen patient remains on Zosyn, critical care time spent 35 minutes 11/07/2018, patient seen and evaluated examined during the rounds this morning critical care time spent 40 minutes, patient has removed to the ICU from medical floor as she was hypotensive with poor urine output in addition patient has been more somnolent and lethargic she did have receive a dose of Xanax on the floor, after arrival in ICU patient remains very hypotensive with tachycardia was given multiple fluid boluses to improve the hemodynamics however eventually starting the levo fed drip, patient does have 2 peripheral IVs one of them is not functioning very well, worsening of renal function has been noted the renal services planning to do hemodialysis, patient has very poor peripheral arterial disease unable to obtain ABG in addition to that very poor peripheral pulses are present, patient is arousable opens eyes follow simple commands but remains very anxious and agitated, patient eventually went up to 25 mics of levo fed drip with a systolic blood pressure ranging about 100 210, urine output has been very minimal, given that the lack of ability of IV axis will proceed with a central line however patient needed dialysis port as well will do a trilysis catheter (hemodialysis catheter with extra port), care plan discussed with the vascular surgery as well and renal services planning to do hemodialysis later on today provided hemodynamics remain stable, due to anticipated profound metabolic acidosis patient has been started on bicarb drip , patient is being kept on IV Zosyn heparin has been on hold due to procedures as well as elevated PTT labs reviewed medications reviewed radiographic studies reviewed as well 11/06/2018, patient seen evlauro examined during the rounds clinically patient has a been doing relatively better in terms of shortness of breath and swelling of the lower extremity patient is currently on room air however renal function continued to go up slightly and Lasix dose is being adjusted by renal service labs reviewed medications reviewed for now we'll continue IV heparin hopefully next 24-48 hours we'll switch it to oral anticoagulants 11/05/2018, patient seen evlauro reexamined during the rounds clinically has been doing relatively better in terms of breathing leg swelling the lower extremity is slightly better patient is on anticoagulation with IV heparin for DVT thrombosis of lower extremity on the right side also probable pulmonary embolism as well Patient presented to the hospital with worsening dyspnea and edema. Patient states she's been getting progressively short of breath over the last 1 week. She initially thought it was asthma but the symptoms did not improve with nebulized treatments. She also noticed edema in her legs. She states she does not take any diuretics at home. She admits to good urine output. No hematuria or dysuria. No vomiting or diarrhea. Oral intake has been fair. Denies use of NSAIDs. Chest CT revealed bilateral pleural effusions. Echocardiogram revealed ejection fraction of 35-40% with severe pulmonary hypertension. Currently maintained on Lasix 40 mg IV twice daily. She has been voiding. No fever or chills. Her duplex ultrasound of the lower extremity came back positive for DVT patient is now being started on IV heparin Objective - Vital Signs Vital signs: Vital Signs Temp 97.6 F 11/08/18 12:00 Pulse 93 11/08/18 13:00 Resp 20 11/08/18 13:00 BP 116/42 11/08/18 13:00 Pulse Ox 99 11/08/18 13:00 Intake & Output 11/07/18 11/08/18 11/08/18 18:59 06:59 18:59 Intake Total 2116.539 3493.476 0074.811 Output Total 16 48 18 Balance 2100.539 2538.822 6587.811 Weight 113.2 kg 115.2 kg Intake: IV 1500 1200 800 Calcium Gluconate 1,000 100 mg In Sodium Chloride 0.9 % 100 ml @ 100 mls/hr IVPB ONCE ONE Rx#: [id number] Dextrose 5% in Water 1, 100 000 ml @ 50 mls/hr IV . Q23H [facility] with Sodium Bicarb (1 Meq/ml) 150 ml Rx#:[id number] Piperacillin-Tazobactam 2 100 .25 gm In Sodium Chloride 0.9% 100 ml @ 25 mls/hr IVPB Q8H [facility] Rx#: [id number] Sodium Chloride 0.9% 1, 1200 1200 800 000 ml @ 50 mls/hr IV . Q20H [facility] Rx#:[id number] Intake, IV Titration 616.539 26.346 213.811 Amount Heparin Sod,Pork in 0.45% 137.145 NaCl 25,000 unit In 0.45 % NaCl 1 250ml.bag @ 18 UNITS/KG/HR 14.76 mls/hr IV .[id number] [facility] Rx#: [id number] Insulin Regular 100 unit 27.270 19.014 3.249 In Sodium Chloride 0.9% 100 ml @ Per Protocol IV .Q0M [facility] Rx#:[id number] Norepinephrine 16 mg In 7.332 210.562 Sodium Chloride 0.9% 250 ml @ Titrate IV .Q0M [facility] Rx#:[id number] Norepinephrine 4 mg In 452.124 Sodium Chloride 0.9% 250 ml @ Titrate IV .Q0M [facility] Rx#:[id number] Blood Product 310 Rc As-1 Unit 310 [id number] Output: Urine 16 48 18 Other: Voiding Method Indwelling Catheter Indwelling Catheter Indwelling Catheter # Bowel Movements 1 - Exam - Constitutional General appearance: disheveled, mild distress, morbidly obese, intermittently anxious and agitated and combative times - EENT Eyes: anicteric sclerae, EOMI, poor dentition, normal appearance ENT: normal oropharynx Ears: bilateral: normal - Neck Neck: normal ROM Carotids: bilateral: upstroke normal Thyroid: bilateral: normal size - Respiratory Respiratory: bilateral: CTA, few basal rales, negative: diminished, dullness - Cardiovascular Rhythm: regular Heart sounds: normal: S1, S2 - Integumentary Integumentary: normal turgor - Neurologic Neurologic: CNII-XII intact - Musculoskeletal Musculoskeletal: Moving all 4 extremity good tone in all 4 extremity,- Psychiatric Psychiatric: A&O x's 2, in appropriate affect, at times become anxious and agitated and combative - Labs CBC & Chem 7: 11/08/18 04:23 11/08/18 04:23 Labs: Abnormal Lab Results - Last 24 Hours (Table) 11/07/18 11/07/18 11/07/18 Range/Units 14:23 16:10 17:09 RBC (3.80-5.40) m/uL Hgb (11.4-16.0) gm/dL Hct (34.0-46.0) % MCHC (31.0-37.0) g/dL RDW (11.5-15.5) % Neutrophils # (1.3-7.7) k/uL ABG pH (7.35-7.45) ABG pCO2 (35-45) mmHg ABG pO2 (83-108) mmHg ABG HCO3 (21-25) mmol/L ABG Total CO2 (19-24) mmol/L ABG O2 Saturation (94-97) % BUN (7-17) mg/dL Creatinine (0.52-1.04) mg/dL Glucose (74-99) mg/dL POC Glucose (mg/dL) 233 H 195 H 169 H (75-99) mg/dL Calcium (8.4-10.2) mg/dL Phosphorus (2.5-4.5) mg/dL Magnesium (1.6-2.3) mg/dL AST (14-36) U/L Total Protein (6.3-8.2) g/dL Albumin (3.5-5.0) g/dL Crossmatch 11/07/18 11/07/18 11/07/18 Range/Units 19:07 20:05 21:10 RBC (3.80-5.40) m/uL Hgb (11.4-16.0) gm/dL Hct (34.0-46.0) % MCHC (31.0-37.0) g/dL RDW (11.5-15.5) % Neutrophils # (1.3-7.7) k/uL ABG pH (7.35-7.45) ABG pCO2 (35-45) mmHg ABG pO2 (83-108) mmHg ABG HCO3 (21-25) mmol/L ABG Total CO2 (19-24) mmol/L ABG O2 Saturation (94-97) % BUN (7-17) mg/dL Creatinine (0.52-1.04) mg/dL Glucose (74-99) mg/dL POC Glucose (mg/dL) 120 H 145 H 193 H (75-99) mg/dL Calcium (8.4-10.2) mg/dL Phosphorus (2.5-4.5) mg/dL Magnesium (1.6-2.3) mg/dL AST (14-36) U/L Total Protein (6.3-8.2) g/dL Albumin (3.5-5.0) g/dL Crossmatch 11/07/18 11/07/18 11/08/18 Range/Units 22:10 23:09 00:05 RBC (3.80-5.40) m/uL Hgb (11.4-16.0) gm/dL Hct (34.0-46.0) % MCHC (31.0-37.0) g/dL RDW (11.5-15.5) % Neutrophils # (1.3-7.7) k/uL ABG pH (7.35-7.45) ABG pCO2 (35-45) mmHg ABG pO2 (83-108) mmHg ABG HCO3 (21-25) mmol/L ABG Total CO2 (19-24) mmol/L ABG O2 Saturation (94-97) % BUN (7-17) mg/dL Creatinine (0.52-1.04) mg/dL Glucose (74-99) mg/dL POC Glucose (mg/dL) 195 H 164 H 175 H (75-99) mg/dL Calcium (8.4-10.2) mg/dL Phosphorus (2.5-4.5) mg/dL Magnesium (1.6-2.3) mg/dL AST (14-36) U/L Total Protein (6.3-8.2) g/dL Albumin (3.5-5.0) g/dL Crossmatch 11/08/18 11/08/18 11/08/18 Range/Units 01:02 02:06 03:22 RBC (3.80-5.40) m/uL Hgb (11.4-16.0) gm/dL Hct (34.0-46.0) % MCHC (31.0-37.0) g/dL RDW (11.5-15.5) % Neutrophils # (1.3-7.7) k/uL ABG pH (7.35-7.45) ABG pCO2 (35-45) mmHg ABG pO2 (83-108) mmHg ABG HCO3 (21-25) mmol/L ABG Total CO2 (19-24) mmol/L ABG O2 Saturation (94-97) % BUN (7-17) mg/dL Creatinine (0.52-1.04) mg/dL Glucose (74-99) mg/dL POC Glucose (mg/dL) 173 H 184 H 170 H (75-99) mg/dL Calcium (8.4-10.2) mg/dL Phosphorus (2.5-4.5) mg/dL Magnesium (1.6-2.3) mg/dL AST (14-36) U/L Total Protein (6.3-8.2) g/dL Albumin (3.5-5.0) g/dL Crossmatch 11/08/18 11/08/18 11/08/18 Range/Units 04:07 04:23 04:23 RBC 2.25 L (3.80-5.40) m/uL Hgb 6.5 L* (11.4-16.0) gm/dL Hct 22.3 L (34.0-46.0) % MCHC 28.9 L (31.0-37.0) g/dL RDW 17.7 H (11.5-15.5) % Neutrophils # 7.8 H (1.3-7.7) k/uL ABG pH (7.35-7.45) ABG pCO2 (35-45) mmHg ABG pO2 (83-108) mmHg ABG HCO3 (21-25) mmol/L ABG Total CO2 (19-24) mmol/L ABG O2 Saturation (94-97) % BUN 67 H (7-17) mg/dL Creatinine 5.25 H (0.52-1.04) mg/dL Glucose 145 H (74-99) mg/dL POC Glucose (mg/dL) 155 H (75-99) mg/dL Calcium 7.4 L (8.4-10.2) mg/dL Phosphorus 5.4 H (2.5-4.5) mg/dL Magnesium 2.7 H (1.6-2.3) mg/dL AST 163 H (14-36) U/L Total Protein 4.6 L (6.3-8.2) g/dL Albumin 2.4 L (3.5-5.0) g/dL Crossmatch 11/08/18 11/08/18 11/08/18 Range/Units 05:24 05:41 06:09 RBC (3.80-5.40) m/uL Hgb (11.4-16.0) gm/dL Hct (34.0-46.0) % MCHC (31.0-37.0) g/dL RDW (11.5-15.5) % Neutrophils # (1.3-7.7) k/uL ABG pH (7.35-7.45) ABG pCO2 (35-45) mmHg ABG pO2 (83-108) mmHg ABG HCO3 (21-25) mmol/L ABG Total CO2 (19-24) mmol/L ABG O2 Saturation (94-97) % BUN (7-17) mg/dL Creatinine (0.52-1.04) mg/dL Glucose (74-99) mg/dL POC Glucose (mg/dL) 139 H 140 H (75-99) mg/dL Calcium (8.4-10.2) mg/dL Phosphorus (2.5-4.5) mg/dL Magnesium (1.6-2.3) mg/dL AST (14-36) U/L Total Protein (6.3-8.2) g/dL Albumin (3.5-5.0) g/dL Crossmatch See Detail 11/08/18 11/08/18 11/08/18 Range/Units 06:53 07:30 08:28 RBC (3.80-5.40) m/uL Hgb (11.4-16.0) gm/dL Hct (34.0-46.0) % MCHC (31.0-37.0) g/dL RDW (11.5-15.5) % Neutrophils # (1.3-7.7) k/uL ABG pH 7.24 L (7.35-7.45) ABG pCO2 60 H (35-45) mmHg ABG pO2 127 H (83-108) mmHg ABG HCO3 26 H (21-25) mmol/L ABG Total CO2 27 H (19-24) mmol/L ABG O2 Saturation 99.0 H (94-97) % BUN (7-17) mg/dL Creatinine (0.52-1.04) mg/dL Glucose (74-99) mg/dL POC Glucose (mg/dL) 146 H 178 H (75-99) mg/dL Calcium (8.4-10.2) mg/dL Phosphorus (2.5-4.5) mg/dL Magnesium (1.6-2.3) mg/dL AST (14-36) U/L Total Protein (6.3-8.2) g/dL Albumin (3.5-5.0) g/dL Crossmatch 11/08/18 11/08/18 11/08/18 Range/Units 09:00 09:56 11:07 RBC (3.80-5.40) m/uL Hgb (11.4-16.0) gm/dL Hct (34.0-46.0) % MCHC (31.0-37.0) g/dL RDW (11.5-15.5) % Neutrophils # (1.3-7.7) k/uL ABG pH (7.35-7.45) ABG pCO2 (35-45) mmHg ABG pO2 (83-108) mmHg ABG HCO3 (21-25) mmol/L ABG Total CO2 (19-24) mmol/L ABG O2 Saturation (94-97) % BUN (7-17) mg/dL Creatinine (0.52-1.04) mg/dL Glucose (74-99) mg/dL POC Glucose (mg/dL) 170 H 144 H 142 H (75-99) mg/dL Calcium (8.4-10.2) mg/dL Phosphorus (2.5-4.5) mg/dL Magnesium (1.6-2.3) mg/dL AST (14-36) U/L Total Protein (6.3-8.2) g/dL Albumin (3.5-5.0) g/dL Crossmatch 11/08/18 11/08/18 Range/Units 12:06 13:15 RBC (3.80-5.40) m/uL Hgb (11.4-16.0) gm/dL Hct (34.0-46.0) % MCHC (31.0-37.0) g/dL RDW (11.5-15.5) % Neutrophils # (1.3-7.7) k/uL ABG pH (7.35-7.45) ABG pCO2 (35-45) mmHg ABG pO2 (83-108) mmHg ABG HCO3 (21-25) mmol/L ABG Total CO2 (19-24) mmol/L ABG O2 Saturation (94-97) % BUN (7-17) mg/dL Creatinine (0.52-1.04) mg/dL Glucose (74-99) mg/dL POC Glucose (mg/dL) 169 H 176 H (75-99) mg/dL Calcium (8.4-10.2) mg/dL Phosphorus (2.5-4.5) mg/dL Magnesium (1.6-2.3) mg/dL AST (14-36) U/L Total Protein (6.3-8.2) g/dL Albumin (3.5-5.0) g/dL Crossmatch Microbiology - Last 24 Hours (Table) 11/07/18 00:04 Blood Culture - Preliminary Blood No Growth after 24 hours 11/07/18 06:04 Gram Stain - Preliminary Sputum Sputum Culture - Preliminary Assessment and Plan Assessment: Acute renal failure and anuric Severe sepsis on broad-spectrum antibiotics GI bleed of unclear source status post blood transfusion Altered mental status and metabolic encephalopathy likely multifactorial related to renal failure Deep venous thrombosis of right lower extremity 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 Severe pulmonary hypertension Biventricular failure with acute on chronic systolic heart failure Small bilateral pleural effusion Plan: Anticoagulation as tolerated, currently is on hold because of ongoing bleeding and drop in hemoglobin Vascular surgery consult for possible evaluation of IVC filter Gentle diuresis not effective will proceed with the daily hemodialysis Blood transfusion as needed keep hemoglobin over 7 Optimize therapy for heart failure Monitor renal functions closely Further recommendations pending plan of care as per clinical response of the patient Bicarb drip As per discussion with the it appears that as well renal functions have been progressively getting better patient's mental status was worsening with development of confusion but however she has episodes it. Which she remains very awake respond appropriately with intermittent episodes of confusion Time with Patient: Greater than 30
[2018-11-08 14:26] LABS: Glucose,Whole Blood 174 mg/dL (75-99)
--- NOTE | 2018-11-08 15:02 | CONS ---
DATE OF CONSULTATION: 11/08/2018 This is a 58-year-old white female, she has been admitted to intensive care unit with history of shortness of breath. Patient has developed acute chronic renal failure. Patient also has a history of DVT. Ultrasound showed a right popliteal and infrapopliteal DVT. Patient is on heparin. Patient has developed tarry stools x2 this morning. I was consulted for possible filter placement. Currently, patient is requiring vasopressors, currently required patient on 19 mcg of Levophed. During dialysis, patient had an episode of tachyarrhythmia requiring amiodarone. Palpations is getting through the IV bolus. MEDICAL HISTORY: History of coronary artery disease, diabetes, sleep apnea, hypertension, history of PE in the past. Patient is very restless and confused. Patient is not intubated. Chest has crackles bilateral and CT showed bilateral pleural effusion. ABDOMEN: Soft, nontender. Femorals are palpable, bilateral PTT not palpable. No vascular compromise noted from the DVT right lower extremity. At this point, patient has a concern for GI. Will discuss with Pulmonary and GI if patient needs filter to be replaced. Will follow with you. MMODL / IJN: [id number] / SHABBIR
[2018-11-08 15:31] LABS: Glucose,Whole Blood 170 mg/dL (75-99)
[2018-11-08 15:58] LABS: Anisocytosis Slight; Basophils # (A) 0.1 k/uL (0-0.2); Basophils % (A) 0 %; Eosinophils # (A) 0.2 k/uL (0-0.7); Eosinophils % (A) 1 %; HCT 26.2 % (34.0-46.0); Hypochromasia Marked; Lymphocytes # (A) 1.2 k/uL (1.0-4.8); Lymphocytes % (A) 8 %; MCH 28.9 pg (25.0-35.0); MCHC 30.4 g/dL (31.0-37.0); Macrocytosis Slight; Mean Platelet Volume 7.4; Monocytes # (A) 1.1 k/uL (0-1.0); Monocytes % (A) 7 %; Neutrophils # (A) 11.7 k/uL (1.3-7.7); Neutrophils % (A) 80 %; Platelet Count 298 k/uL (150-450); Poikilocytosis Moderate; RBC 2.75 m/uL (3.80-5.40); RDW 18.1 % (11.5-15.5); WBC 14.6 k/uL (3.8-10.6)
[2018-11-08] MEDS: METOPROLOL SUCCINATE (ER) 50 MG TAB.ER.24H PO SCH (16:05)
[2018-11-08 16:15] LABS: Glucose,Whole Blood 173 mg/dL (75-99)
[2018-11-08] MEDS ORDERED: HALOPERIDOL LACTATE 5 MG/ML 1 ML VIAL IVP PRN (16:15)
[2018-11-08] MEDS: HALOPERIDOL LACTATE 5 MG/ML 1 ML VIAL IVP PRN (16:41)
[2018-11-08 17:20] LABS: Glucose,Whole Blood 151 mg/dL (75-99)
[2018-11-08 18:21] LABS: Glucose,Whole Blood 166 mg/dL (75-99)
[2018-11-08 19:12] LABS: Glucose,Whole Blood 143 mg/dL (75-99)
[2018-11-08 20:02] LABS: Glucose,Whole Blood 154 mg/dL (75-99)
[2018-11-08] MEDS: PRAVASTATIN SODIUM 20 MG TAB PO SCH (20:02)
[2018-11-08] MEDS: MONTELUKAST 10 MG TAB PO SCH (20:02)
[2018-11-08 21:15] LABS: Glucose,Whole Blood 151 mg/dL (75-99)
[2018-11-08 22:13] LABS: Glucose,Whole Blood 164 mg/dL (75-99)
--- NOTE | 2018-11-08 22:22 | PN ---
PROGRESS NOTE SUBJECTIVE: This is a 58-year-old white female who came to the hospital with worsening baseline of 2.97 creatinine 2 days prior to admission. Is now in acute renal failure, creatinine over 5. She has severe sepsis, hypertension, acute renal failure secondary to her DVT and pulmonary embolism, biventricular failure, systolic heart failure, sleep apnea, getting dialysis daily. Discussed case with Dr. Gordillo. Prognosis is poor. She got 2 units of packed red blood cells yesterday. Heparin has been on hold since yesterday. Vascular surgery consult for IVC filter due to DVT. She remains on insulin drip as she has an insulin pump at home for diabetes mellitus. Gastroenterology has been consulted for GI bleed. Tolerating BiPAP well, but she is not waking up. She just moans words here and there. She is on 40% oxygen. She remains on Zosyn. Negative cultures. PHYSICAL EXAMINATION: Temp 97.6, pulse 90-93, respiratory 18 to 20, blood pressure 116/42, O2 saturation 99%. She has BiPAP on. She looks sleepy, lethargic. She is arousable to deep stimuli and moans here and there. Psych: She remains obtunded. She moves all 4 extremities. Hemoglobin was low at 6.5. Unit of blood was given. Sugars in the mid 100s to 200s. ASSESSMENT: 1. Acute renal failure aneuric. 2. Severe sepsis of unclear etiology. 3. Possible pneumonia as she had spiked a fever a few days ago. So far cultures are negative. 4. Altered mental status. 5. Metabolic encephalopathy. 6. Deep vein thrombosis. 7. Suspect thromboembolic disease. 8. Pulmonary hypertension. 9. Biventricular failure. 10.Bilateral pleural effusions. 11.Blood transfusion to keep hemoglobin over 7. 12.Treat heart failure. 13.Vascular surgery for IVC filter. 14.Dialysis. 15.Continue current treatment. 16.Prognosis extremely guarded. ICU note 40 minutes. MMODL / IJN: [id number] /
[2018-11-08 23:18] LABS: Glucose,Whole Blood 185 mg/dL (75-99)
[2018-11-09] MEDS: HALOPERIDOL LACTATE 5 MG/ML 1 ML VIAL IVP PRN (00:22)
[2018-11-09 00:23] LABS: Glucose,Whole Blood 178 mg/dL (75-99)
--- NOTE | 2018-11-09 00:31 | PN ---
PROGRESS NOTE DATE OF SERVICE: 11/08/2018. REASON FOR FOLLOWUP: Possible aspiration pneumonia and sepsis. INTERVAL HISTORY: The patient is afebrile. The patient went into atrial fibrillation with after getting dialyzed. The patient is currently on pressor support. Remains to be on a BiPAP, lethargic and does not report any history. PHYSICAL EXAMINATION: Blood pressure 120/50 with a pulse of 75, temperature 98, she is 98% on BiPAP. GENERAL DESCRIPTION: A middle-aged female lying in bed in no distress. RESPIRATORY SYSTEM: Unlabored breathing. Some coarse breath sounds in the bases. No wheeze. HEART: S1, S2. Regular rate and rhythm. ABDOMEN: Soft, nondistended. No guarding. EXTREMITIES: 1+ edema feet. LABS: Hemoglobin 8.8, hematocrit 14.6. BUN 67, white count of 5.25. Blood and sputum culture currently pending. DIAGNOSTIC IMPRESSION/PLAN: Patient with sepsis, culture ____ or gram-negative pneumonia. Patient is currently covered with Zosyn. Continue for now while waiting for the culture to finalize. Continue supportive care. MMODL / IJN: [id number] /
[2018-11-09 01:24] LABS: Glucose,Whole Blood 157 mg/dL (75-99)
[2018-11-09] MEDS: AMIODARONE 450 MG in DEXTROSE 5% IN WATER 250 ML IV SCH ×4 (02:57→10:24)
[2018-11-09] MEDS: NOREPINEPHRINE 16 MG in SODIUM CHLORIDE 0.9% 250 ML IV SCH (02:57)
[2018-11-09 03:09] LABS: Glucose,Whole Blood 139 mg/dL (75-99)
[2018-11-09 04:19] LABS: Glucose,Whole Blood 150 mg/dL (75-99)
[2018-11-09 05:11] LABS: Glucose,Whole Blood 150 mg/dL (75-99)
[2018-11-09 05:34] LABS: Anisocytosis Slight; HCT 24.6 % (34.0-46.0); HGB 7.3 gm/dL (11.4-16.0); Hypochromasia Marked; MCH 28.1 pg (25.0-35.0); MCHC 29.5 g/dL (31.0-37.0); MCV 95.3 fL (80.0-100.0); Macrocytosis Slight; Mean Platelet Volume 7.1; Platelet Count 241 k/uL (150-450); Poikilocytosis Moderate; RBC 2.58 m/uL (3.80-5.40); RDW 18.4 % (11.5-15.5)
[2018-11-09 05:46] LABS: Albumin 2.3 g/dL (3.5-5.0); Calcium 7.3 mg/dL (8.4-10.2); Magnesium 2.4 mg/dL (1.6-2.3); Potassium 4.8 mmol/L (3.5-5.1); Total Bilirubin 0.6 mg/dL (0.2-1.3); Total Protein 4.6 g/dL (6.3-8.2)
[2018-11-09 06:16] LABS: Nucleated Red Blood Cells 1 /100 WBC (0-0)
[2018-11-09 06:16] LABS: Glucose,Whole Blood 150 mg/dL (75-99)
[2018-11-09 06:18] LABS: Band Neutrophils % 14 %; Lymphocytes # (M) 1.24 k/uL (1.0-4.8); Monocytes # (M) 0.62 k/uL (0-1.0); Neutrophils % (M) 69 %; Total Cells Counted 200; WBC 10.3 k/uL (3.8-10.6)
[2018-11-09 06:19] LABS: Polychromasia Present
[2018-11-09 06:20] LABS: Large Platelets Present
[2018-11-09 07:09] LABS: Glucose,Whole Blood 149 mg/dL (75-99)
--- NOTE | 2018-11-09 07:25 | XR ---
EXAMINATION TYPE: XR chest 1V DATE OF EXAM: 11/09/2018 COMPARISON: 11/08/2018 HISTORY: SOB, Follow Up FINDINGS: Indwelling tubes and catheters are unchanged. Pulmonary venous congestion with small effusions persist. Stable appearance of the cardio-mediastinal structures at this time. Pleural effusion unchanged. IMPRESSION: 1. Stable portable chest. Clinical correlation and follow up until resolution is recommended.
[2018-11-09 08:20] LABS: Glucose,Whole Blood 155 mg/dL (75-99)
--- NOTE | 2018-11-09 08:32 | P.PN ---
Subjective Progress Note Date: 11/09/18 Principal diagnosis: CHF/cardiomyopathy This is a pleasant 58-year-old female patient with an extensive past medical history for her age consistent of coronary artery disease, peripheral arterial disease, diabetes, hypertension, dyslipidemia, and chronic kidney disease, was admitted to the hospital with chest discomfort and was ruled in for acute non- ST patient myocardial infarction and also with congestive heart failure secondary to systolic dysfunction. The patient was treated medically for the non-STEMI The echocardiogram revealed impaired LV function with EF of 35%, mild aortic stenosis, severe pulmonary hypertension, and moderate tricuspid regurgitation. On follow-up with the patient today, November 092018, she seems to be doing slightly better. Her mentation has improved. She is not as confused as yesterday. Hemodynamically also she is doing better and she is not on levo fed at this point. The hemoglobin has been stable after the last blood transfusion. Objective - Vital Signs Vital signs: Vital Signs Temp 98.8 F 11/09/18 04:00 Pulse 80 11/09/18 07:00 Resp 24 11/09/18 07:00 BP 108/48 11/09/18 07:00 Pulse Ox 99 11/09/18 07:00 Intake & Output 11/08/18 11/09/18 11/09/18 18:59 06:59 18:59 Intake Total 1734.985 5045.136 Output Total 26 42 Balance 1894.365 971.136 Weight 117.3 kg Intake: IV 1150 600 Sodium Chloride 0.9% 1, 1150 600 000 ml @ 50 mls/hr IV . Q20H [facility] Rx#:[id number] Intake, IV Titration 460.365 413.136 Amount Amiodarone 450 mg In 244.012 140.669 Dextrose 5% in Water 250 ml @ 1 MG/MIN 34.53 mls/ hr IV .Q7H31M [facility] Rx#: [id number] Insulin Regular 100 unit 5.791 17.397 In Sodium Chloride 0.9% 100 ml @ Per Protocol IV .Q0M [facility] Rx#:[id number] Norepinephrine 16 mg In 210.562 255.070 Sodium Chloride 0.9% 250 ml @ Titrate IV .Q0M [facility] Rx#:[id number] Blood Product 310 Rc As-1 Unit 310 [id number] Output: Urine 26 42 Other: Voiding Method Indwelling Catheter Indwelling Catheter # Bowel Movements 1 - Constitutional General appearance: Present: no acute distress - Respiratory Respiratory: bilateral: diminished - Cardiovascular Heart sounds: normal: S1, S2 - Labs CBC & Chem 7: 11/09/18 04:17 11/09/18 04:17 Labs: Abnormal Lab Results - Last 24 Hours (Table) 11/08/18 11/08/18 11/08/18 Range/Units 05:41 08:28 09:00 WBC (3.8-10.6) k/uL RBC (3.80-5.40) m/uL Hgb (11.4-16.0) gm/dL Hct (34.0-46.0) % MCHC (31.0-37.0) g/dL RDW (11.5-15.5) % Neutrophils # (1.3-7.7) k/uL Neutrophils # (Manual) (1.3-7.7) k/uL Monocytes # (0-1.0) k/uL Nucleated RBCs (0-0) /100 WBC Sodium (137-145) mmol/L BUN (7-17) mg/dL Creatinine (0.52-1.04) mg/dL Glucose (74-99) mg/dL POC Glucose (mg/dL) 178 H 170 H (75-99) mg/dL Calcium (8.4-10.2) mg/dL Phosphorus (2.5-4.5) mg/dL Magnesium (1.6-2.3) mg/dL AST (14-36) U/L ALT (9-52) U/L Total Protein (6.3-8.2) g/dL Albumin (3.5-5.0) g/dL Crossmatch See Detail 11/08/18 11/08/18 11/08/18 Range/Units 09:56 11:07 12:06 WBC (3.8-10.6) k/uL RBC (3.80-5.40) m/uL Hgb (11.4-16.0) gm/dL Hct (34.0-46.0) % MCHC (31.0-37.0) g/dL RDW (11.5-15.5) % Neutrophils # (1.3-7.7) k/uL Neutrophils # (Manual) (1.3-7.7) k/uL Monocytes # (0-1.0) k/uL Nucleated RBCs (0-0) /100 WBC Sodium (137-145) mmol/L BUN (7-17) mg/dL Creatinine (0.52-1.04) mg/dL Glucose (74-99) mg/dL POC Glucose (mg/dL) 144 H 142 H 169 H (75-99) mg/dL Calcium (8.4-10.2) mg/dL Phosphorus (2.5-4.5) mg/dL Magnesium (1.6-2.3) mg/dL AST (14-36) U/L ALT (9-52) U/L Total Protein (6.3-8.2) g/dL Albumin (3.5-5.0) g/dL Crossmatch 11/08/18 11/08/18 11/08/18 Range/Units 13:15 14:14 15:20 WBC (3.8-10.6) k/uL RBC (3.80-5.40) m/uL Hgb (11.4-16.0) gm/dL Hct (34.0-46.0) % MCHC (31.0-37.0) g/dL RDW (11.5-15.5) % Neutrophils # (1.3-7.7) k/uL Neutrophils # (Manual) (1.3-7.7) k/uL Monocytes # (0-1.0) k/uL Nucleated RBCs (0-0) /100 WBC Sodium (137-145) mmol/L BUN (7-17) mg/dL Creatinine (0.52-1.04) mg/dL Glucose (74-99) mg/dL POC Glucose (mg/dL) 176 H 174 H 170 H (75-99) mg/dL Calcium (8.4-10.2) mg/dL Phosphorus (2.5-4.5) mg/dL Magnesium (1.6-2.3) mg/dL AST (14-36) U/L ALT (9-52) U/L Total Protein (6.3-8.2) g/dL Albumin (3.5-5.0) g/dL Crossmatch 11/08/18 11/08/18 11/08/18 Range/Units 15:32 16:04 17:08 WBC 14.6 H (3.8-10.6) k/uL RBC 2.75 L (3.80-5.40) m/uL Hgb 8.0 L D (11.4-16.0) gm/dL Hct 26.2 L (34.0-46.0) % MCHC 30.4 L (31.0-37.0) g/dL RDW 18.1 H (11.5-15.5) % Neutrophils # 11.7 H (1.3-7.7) k/uL Neutrophils # (Manual) (1.3-7.7) k/uL Monocytes # 1.1 H (0-1.0) k/uL Nucleated RBCs (0-0) /100 WBC Sodium (137-145) mmol/L BUN (7-17) mg/dL Creatinine (0.52-1.04) mg/dL Glucose (74-99) mg/dL POC Glucose (mg/dL) 173 H 151 H (75-99) mg/dL Calcium (8.4-10.2) mg/dL Phosphorus (2.5-4.5) mg/dL Magnesium (1.6-2.3) mg/dL AST (14-36) U/L ALT (9-52) U/L Total Protein (6.3-8.2) g/dL Albumin (3.5-5.0) g/dL Crossmatch 11/08/18 11/08/18 11/08/18 Range/Units 18:10 19:00 19:50 WBC (3.8-10.6) k/uL RBC (3.80-5.40) m/uL Hgb (11.4-16.0) gm/dL Hct (34.0-46.0) % MCHC (31.0-37.0) g/dL RDW (11.5-15.5) % Neutrophils # (1.3-7.7) k/uL Neutrophils # (Manual) (1.3-7.7) k/uL Monocytes # (0-1.0) k/uL Nucleated RBCs (0-0) /100 WBC Sodium (137-145) mmol/L BUN (7-17) mg/dL Creatinine (0.52-1.04) mg/dL Glucose (74-99) mg/dL POC Glucose (mg/dL) 166 H 143 H 154 H (75-99) mg/dL Calcium (8.4-10.2) mg/dL Phosphorus (2.5-4.5) mg/dL Magnesium (1.6-2.3) mg/dL AST (14-36) U/L ALT (9-52) U/L Total Protein (6.3-8.2) g/dL Albumin (3.5-5.0) g/dL Crossmatch 11/08/18 11/08/18 11/08/18 Range/Units 21:04 22:03 23:06 WBC (3.8-10.6) k/uL RBC (3.80-5.40) m/uL Hgb (11.4-16.0) gm/dL Hct (34.0-46.0) % MCHC (31.0-37.0) g/dL RDW (11.5-15.5) % Neutrophils # (1.3-7.7) k/uL Neutrophils # (Manual) (1.3-7.7) k/uL Monocytes # (0-1.0) k/uL Nucleated RBCs (0-0) /100 WBC Sodium (137-145) mmol/L BUN (7-17) mg/dL Creatinine (0.52-1.04) mg/dL Glucose (74-99) mg/dL POC Glucose (mg/dL) 151 H 164 H 185 H (75-99) mg/dL Calcium (8.4-10.2) mg/dL Phosphorus (2.5-4.5) mg/dL Magnesium (1.6-2.3) mg/dL AST (14-36) U/L ALT (9-52) U/L Total Protein (6.3-8.2) g/dL Albumin (3.5-5.0) g/dL Crossmatch 11/09/18 11/09/18 11/09/18 Range/Units 00:11 01:12 02:58 WBC (3.8-10.6) k/uL RBC (3.80-5.40) m/uL Hgb (11.4-16.0) gm/dL Hct (34.0-46.0) % MCHC (31.0-37.0) g/dL RDW (11.5-15.5) % Neutrophils # (1.3-7.7) k/uL Neutrophils # (Manual) (1.3-7.7) k/uL Monocytes # (0-1.0) k/uL Nucleated RBCs (0-0) /100 WBC Sodium (137-145) mmol/L BUN (7-17) mg/dL Creatinine (0.52-1.04) mg/dL Glucose (74-99) mg/dL POC Glucose (mg/dL) 178 H 157 H 139 H (75-99) mg/dL Calcium (8.4-10.2) mg/dL Phosphorus (2.5-4.5) mg/dL Magnesium (1.6-2.3) mg/dL AST (14-36) U/L ALT (9-52) U/L Total Protein (6.3-8.2) g/dL Albumin (3.5-5.0) g/dL Crossmatch 11/09/18 11/09/18 11/09/18 Range/Units 04:04 04:17 04:17 WBC (3.8-10.6) k/uL RBC 2.58 L (3.80-5.40) m/uL Hgb 7.3 L (11.4-16.0) gm/dL Hct 24.6 L (34.0-46.0) % MCHC 29.5 L (31.0-37.0) g/dL RDW 18.4 H (11.5-15.5) % Neutrophils # (1.3-7.7) k/uL Neutrophils # (Manual) 8.50 H (1.3-7.7) k/uL Monocytes # (0-1.0) k/uL Nucleated RBCs 1 H (0-0) /100 WBC Sodium 135 L (137-145) mmol/L BUN 53 H (7-17) mg/dL Creatinine 4.53 H (0.52-1.04) mg/dL Glucose 123 H (74-99) mg/dL POC Glucose (mg/dL) 150 H (75-99) mg/dL Calcium 7.3 L (8.4-10.2) mg/dL Phosphorus 5.0 H (2.5-4.5) mg/dL Magnesium 2.4 H (1.6-2.3) mg/dL AST 932 H (14-36) U/L ALT 563 H (9-52) U/L Total Protein 4.6 L (6.3-8.2) g/dL Albumin 2.3 L (3.5-5.0) g/dL Crossmatch 11/09/18 11/09/18 11/09/18 Range/Units 04:59 06:05 06:58 WBC (3.8-10.6) k/uL RBC (3.80-5.40) m/uL Hgb (11.4-16.0) gm/dL Hct (34.0-46.0) % MCHC (31.0-37.0) g/dL RDW (11.5-15.5) % Neutrophils # (1.3-7.7) k/uL Neutrophils # (Manual) (1.3-7.7) k/uL Monocytes # (0-1.0) k/uL Nucleated RBCs (0-0) /100 WBC Sodium (137-145) mmol/L BUN (7-17) mg/dL Creatinine (0.52-1.04) mg/dL Glucose (74-99) mg/dL POC Glucose (mg/dL) 150 H 150 H 149 H (75-99) mg/dL Calcium (8.4-10.2) mg/dL Phosphorus (2.5-4.5) mg/dL Magnesium (1.6-2.3) mg/dL AST (14-36) U/L ALT (9-52) U/L Total Protein (6.3-8.2) g/dL Albumin (3.5-5.0) g/dL Crossmatch 11/09/18 Range/Units 08:08 WBC (3.8-10.6) k/uL RBC (3.80-5.40) m/uL Hgb (11.4-16.0) gm/dL Hct (34.0-46.0) % MCHC (31.0-37.0) g/dL RDW (11.5-15.5) % Neutrophils # (1.3-7.7) k/uL Neutrophils # (Manual) (1.3-7.7) k/uL Monocytes # (0-1.0) k/uL Nucleated RBCs (0-0) /100 WBC Sodium (137-145) mmol/L BUN (7-17) mg/dL Creatinine (0.52-1.04) mg/dL Glucose (74-99) mg/dL POC Glucose (mg/dL) 155 H (75-99) mg/dL Calcium (8.4-10.2) mg/dL Phosphorus (2.5-4.5) mg/dL Magnesium (1.6-2.3) mg/dL AST (14-36) U/L ALT (9-52) U/L Total Protein (6.3-8.2) g/dL Albumin (3.5-5.0) g/dL Crossmatch Microbiology - Last 24 Hours (Table) 11/07/18 00:04 Blood Culture - Preliminary Blood No Growth after 48 hours Assessment and Plan Assessment: Assessment #1 systolic congestive heart failure exacerbation #2 acute non-ST elevation myocardial infarction #3 acute on chronic renal failure #4 peripheral vascular disease #5 systemic hypertension #6 hyperkalemia Plan #1 the patient is on dialysis now #2 currently she is off vasopressors #3 follow-up with the patient
[2018-11-09] MEDS: ALBUTEROL NEBULIZED 2.5 MG/3 ML INHALATION PRN ×2 (08:35→20:50)
[2018-11-09] MEDS: FLUTICASONE 110 MCG INHALER INHALATION SCH ×2 (08:38→20:56)
[2018-11-09] MEDS: ASPIRIN 81 MG PO SCH ×2 (09:17→15:27)
[2018-11-09] MEDS: NICOTINE 21MG/24HR PATCH TRANSDERM SCH (09:17)
[2018-11-09] MEDS: FERROUS SULFATE 325 MG TAB PO SCH ×2 (09:17→15:27)
[2018-11-09] MEDS: PIPERACILLIN-TAZOBACTAM 3.375 GM in SODIUM CHLORIDE 0.9% 100 ML IVPB SCH ×2 (09:18→20:50)
[2018-11-09] MEDS: PANTOPRAZOLE 40 MG/10 ML VIAL IV SCH ×2 (09:18→20:53)
[2018-11-09 09:23] LABS: Glucose,Whole Blood 171 mg/dL (75-99)
[2018-11-09 10:10] LABS: Glucose,Whole Blood 185 mg/dL (75-99)
--- NOTE | 2018-11-09 10:24 | P.PN ---
Subjective Patient is seen in follow-up for acute kidney injury on chronic kidney disease. Patient has chronic kidney disease stage IV with baseline creatinine near 3 secondary to diabetic kidney disease. Due to worsening renal function and oliguria, she was started on hemodialysis on November 07. Mentation has not improved much. Currently on 7 mics of Levophed. Remains oliguric. Hemoglobin was 6.5 yesterday for which she received 1 unit of blood transition. No active bleeding now. Afebrile. Currently on vasopressors. General: The patient appeared well nourished and normally developed. HEENT: Head exam is unremarkable. Neck is without jugular venous distension. On BiPAP. LUNGS: Breath sounds decreased. HEART: Rate and Rhythm are regular. First and second heart sounds normal. No murmurs, rubs or gallops. ABDOMEN: Abdominal exam reveals normal bowel sounds. Non-tender and non- distended. No evidence of peritonitis. EXTREMITITES: Trace edema. Objective - Vital Signs Vital signs: Vital Signs Temp 97.9 F 11/09/18 08:00 Pulse 76 11/09/18 09:00 Resp 15 11/09/18 09:00 BP 107/43 11/09/18 09:00 Pulse Ox 95 11/09/18 09:00 Intake & Output 11/08/18 11/09/18 11/09/18 18:59 06:59 18:59 Intake Total 2123.697 4067.136 366.038 Output Total 26 42 0 Balance 1894.365 971.136 366.038 Weight 117.3 kg Intake: IV 1150 600 250 Piperacillin-Tazobactam 2 100 .25 gm In Sodium Chloride 0.9% 100 ml @ 25 mls/hr IVPB Q8H [facility] Rx#: [id number] Sodium Chloride 0.9% 1, 1150 600 150 000 ml @ 50 mls/hr IV . Q20H [facility] Rx#:[id number] Intake, IV Titration 460.365 413.136 116.038 Amount Amiodarone 450 mg In 244.012 140.669 87.163 Dextrose 5% in Water 250 ml @ 1 MG/MIN 34.53 mls/ hr IV .Q7H31M [facility] Rx#: [id number] Insulin Regular 100 unit 5.791 17.397 0 In Sodium Chloride 0.9% 100 ml @ Per Protocol IV .Q0M [facility] Rx#:[id number] Norepinephrine 16 mg In 210.562 255.070 28.875 Sodium Chloride 0.9% 250 ml @ Titrate IV .Q0M [facility] Rx#:[id number] Blood Product 310 Rc As-1 Unit 310 [id number] Output: Urine 26 42 0 Other: Voiding Method Indwelling Catheter Indwelling Catheter Indwelling Catheter # Bowel Movements 1 - Labs CBC & Chem 7: 11/09/18 04:17 11/09/18 04:17 Labs: Abnormal Lab Results - Last 24 Hours (Table) 11/08/18 11/08/18 11/08/18 Range/Units 05:41 11:07 12:06 WBC (3.8-10.6) k/uL RBC (3.80-5.40) m/uL Hgb (11.4-16.0) gm/dL Hct (34.0-46.0) % MCHC (31.0-37.0) g/dL RDW (11.5-15.5) % Neutrophils # (1.3-7.7) k/uL Neutrophils # (Manual) (1.3-7.7) k/uL Monocytes # (0-1.0) k/uL Nucleated RBCs (0-0) /100 WBC Sodium (137-145) mmol/L BUN (7-17) mg/dL Creatinine (0.52-1.04) mg/dL Glucose (74-99) mg/dL POC Glucose (mg/dL) 142 H 169 H (75-99) mg/dL Calcium (8.4-10.2) mg/dL Phosphorus (2.5-4.5) mg/dL Magnesium (1.6-2.3) mg/dL AST (14-36) U/L ALT (9-52) U/L Total Protein (6.3-8.2) g/dL Albumin (3.5-5.0) g/dL Crossmatch See Detail 11/08/18 11/08/18 11/08/18 Range/Units 13:15 14:14 15:20 WBC (3.8-10.6) k/uL RBC (3.80-5.40) m/uL Hgb (11.4-16.0) gm/dL Hct (34.0-46.0) % MCHC (31.0-37.0) g/dL RDW (11.5-15.5) % Neutrophils # (1.3-7.7) k/uL Neutrophils # (Manual) (1.3-7.7) k/uL Monocytes # (0-1.0) k/uL Nucleated RBCs (0-0) /100 WBC Sodium (137-145) mmol/L BUN (7-17) mg/dL Creatinine (0.52-1.04) mg/dL Glucose (74-99) mg/dL POC Glucose (mg/dL) 176 H 174 H 170 H (75-99) mg/dL Calcium (8.4-10.2) mg/dL Phosphorus (2.5-4.5) mg/dL Magnesium (1.6-2.3) mg/dL AST (14-36) U/L ALT (9-52) U/L Total Protein (6.3-8.2) g/dL Albumin (3.5-5.0) g/dL Crossmatch 11/08/18 11/08/18 11/08/18 Range/Units 15:32 16:04 17:08 WBC 14.6 H (3.8-10.6) k/uL RBC 2.75 L (3.80-5.40) m/uL Hgb 8.0 L D (11.4-16.0) gm/dL Hct 26.2 L (34.0-46.0) % MCHC 30.4 L (31.0-37.0) g/dL RDW 18.1 H (11.5-15.5) % Neutrophils # 11.7 H (1.3-7.7) k/uL Neutrophils # (Manual) (1.3-7.7) k/uL Monocytes # 1.1 H (0-1.0) k/uL Nucleated RBCs (0-0) /100 WBC Sodium (137-145) mmol/L BUN (7-17) mg/dL Creatinine (0.52-1.04) mg/dL Glucose (74-99) mg/dL POC Glucose (mg/dL) 173 H 151 H (75-99) mg/dL Calcium (8.4-10.2) mg/dL Phosphorus (2.5-4.5) mg/dL Magnesium (1.6-2.3) mg/dL AST (14-36) U/L ALT (9-52) U/L Total Protein (6.3-8.2) g/dL Albumin (3.5-5.0) g/dL Crossmatch 11/08/18 11/08/18 11/08/18 Range/Units 18:10 19:00 19:50 WBC (3.8-10.6) k/uL RBC (3.80-5.40) m/uL Hgb (11.4-16.0) gm/dL Hct (34.0-46.0) % MCHC (31.0-37.0) g/dL RDW (11.5-15.5) % Neutrophils # (1.3-7.7) k/uL Neutrophils # (Manual) (1.3-7.7) k/uL Monocytes # (0-1.0) k/uL Nucleated RBCs (0-0) /100 WBC Sodium (137-145) mmol/L BUN (7-17) mg/dL Creatinine (0.52-1.04) mg/dL Glucose (74-99) mg/dL POC Glucose (mg/dL) 166 H 143 H 154 H (75-99) mg/dL Calcium (8.4-10.2) mg/dL Phosphorus (2.5-4.5) mg/dL Magnesium (1.6-2.3) mg/dL AST (14-36) U/L ALT (9-52) U/L Total Protein (6.3-8.2) g/dL Albumin (3.5-5.0) g/dL Crossmatch 11/08/18 11/08/18 11/08/18 Range/Units 21:04 22:03 23:06 WBC (3.8-10.6) k/uL RBC (3.80-5.40) m/uL Hgb (11.4-16.0) gm/dL Hct (34.0-46.0) % MCHC (31.0-37.0) g/dL RDW (11.5-15.5) % Neutrophils # (1.3-7.7) k/uL Neutrophils # (Manual) (1.3-7.7) k/uL Monocytes # (0-1.0) k/uL Nucleated RBCs (0-0) /100 WBC Sodium (137-145) mmol/L BUN (7-17) mg/dL Creatinine (0.52-1.04) mg/dL Glucose (74-99) mg/dL POC Glucose (mg/dL) 151 H 164 H 185 H (75-99) mg/dL Calcium (8.4-10.2) mg/dL Phosphorus (2.5-4.5) mg/dL Magnesium (1.6-2.3) mg/dL AST (14-36) U/L ALT (9-52) U/L Total Protein (6.3-8.2) g/dL Albumin (3.5-5.0) g/dL Crossmatch 11/09/18 11/09/18 11/09/18 Range/Units 00:11 01:12 02:58 WBC (3.8-10.6) k/uL RBC (3.80-5.40) m/uL Hgb (11.4-16.0) gm/dL Hct (34.0-46.0) % MCHC (31.0-37.0) g/dL RDW (11.5-15.5) % Neutrophils # (1.3-7.7) k/uL Neutrophils # (Manual) (1.3-7.7) k/uL Monocytes # (0-1.0) k/uL Nucleated RBCs (0-0) /100 WBC Sodium (137-145) mmol/L BUN (7-17) mg/dL Creatinine (0.52-1.04) mg/dL Glucose (74-99) mg/dL POC Glucose (mg/dL) 178 H 157 H 139 H (75-99) mg/dL Calcium (8.4-10.2) mg/dL Phosphorus (2.5-4.5) mg/dL Magnesium (1.6-2.3) mg/dL AST (14-36) U/L ALT (9-52) U/L Total Protein (6.3-8.2) g/dL Albumin (3.5-5.0) g/dL Crossmatch 11/09/18 11/09/18 11/09/18 Range/Units 04:04 04:17 04:17 WBC (3.8-10.6) k/uL RBC 2.58 L (3.80-5.40) m/uL Hgb 7.3 L (11.4-16.0) gm/dL Hct 24.6 L (34.0-46.0) % MCHC 29.5 L (31.0-37.0) g/dL RDW 18.4 H (11.5-15.5) % Neutrophils # (1.3-7.7) k/uL Neutrophils # (Manual) 8.50 H (1.3-7.7) k/uL Monocytes # (0-1.0) k/uL Nucleated RBCs 1 H (0-0) /100 WBC Sodium 135 L (137-145) mmol/L BUN 53 H (7-17) mg/dL Creatinine 4.53 H (0.52-1.04) mg/dL Glucose 123 H (74-99) mg/dL POC Glucose (mg/dL) 150 H (75-99) mg/dL Calcium 7.3 L (8.4-10.2) mg/dL Phosphorus 5.0 H (2.5-4.5) mg/dL Magnesium 2.4 H (1.6-2.3) mg/dL AST 932 H (14-36) U/L ALT 563 H (9-52) U/L Total Protein 4.6 L (6.3-8.2) g/dL Albumin 2.3 L (3.5-5.0) g/dL Crossmatch 11/09/18 11/09/18 11/09/18 Range/Units 04:59 06:05 06:58 WBC (3.8-10.6) k/uL RBC (3.80-5.40) m/uL Hgb (11.4-16.0) gm/dL Hct (34.0-46.0) % MCHC (31.0-37.0) g/dL RDW (11.5-15.5) % Neutrophils # (1.3-7.7) k/uL Neutrophils # (Manual) (1.3-7.7) k/uL Monocytes # (0-1.0) k/uL Nucleated RBCs (0-0) /100 WBC Sodium (137-145) mmol/L BUN (7-17) mg/dL Creatinine (0.52-1.04) mg/dL Glucose (74-99) mg/dL POC Glucose (mg/dL) 150 H 150 H 149 H (75-99) mg/dL Calcium (8.4-10.2) mg/dL Phosphorus (2.5-4.5) mg/dL Magnesium (1.6-2.3) mg/dL AST (14-36) U/L ALT (9-52) U/L Total Protein (6.3-8.2) g/dL Albumin (3.5-5.0) g/dL Crossmatch 11/09/18 11/09/18 11/09/18 Range/Units 08:08 09:12 09:59 WBC (3.8-10.6) k/uL RBC (3.80-5.40) m/uL Hgb (11.4-16.0) gm/dL Hct (34.0-46.0) % MCHC (31.0-37.0) g/dL RDW (11.5-15.5) % Neutrophils # (1.3-7.7) k/uL Neutrophils # (Manual) (1.3-7.7) k/uL Monocytes # (0-1.0) k/uL Nucleated RBCs (0-0) /100 WBC Sodium (137-145) mmol/L BUN (7-17) mg/dL Creatinine (0.52-1.04) mg/dL Glucose (74-99) mg/dL POC Glucose (mg/dL) 155 H 171 H 185 H (75-99) mg/dL Calcium (8.4-10.2) mg/dL Phosphorus (2.5-4.5) mg/dL Magnesium (1.6-2.3) mg/dL AST (14-36) U/L ALT (9-52) U/L Total Protein (6.3-8.2) g/dL Albumin (3.5-5.0) g/dL Crossmatch Microbiology - Last 24 Hours (Table) 11/07/18 06:04 Gram Stain - Final Sputum Sputum Culture - Final 11/07/18 00:04 Blood Culture - Preliminary Blood No Growth after 48 hours Assessment and Plan Plan: Assessment: 1. Acute kidney injury secondary to ATN secondary to hypotension. Creatinine peaked at 5.85 and November 07 and was also oliguric. Currently hemodialysis dependent. No hydronephrosis noted on renal ultrasound. 2. Chronic kidney disease stage IV secondary to diabetic kidney disease and nephrosclerosis with baseline creatinine near 3 according to the patient. 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 3. Systolic CHF with ejection fraction of 30-35% with severe pulmonary hypertension and moderate tricuspid regurgitation. 4. Volume overload. Better. 5. Hypervolemic hyponatremia. Better. 6. Hyperkalemia secondary to acute kidney injury. Better. 7. Diabetes mellitus. 8. Hypotension maintained on 7 mics of Levophed. 9. Hyperphosphatemia secondary to acute kidney injury. Improved postdialysis. 10. Acute blood loss anemia secondary to GI bleed. Status post blood transfusion. Potential endoscopy later this afternoon. Plan: Maintain normal saline at 50 mL an hour. Third treatment of hemodialysis today. Follow-up cultures. Wean Levophed. Continue to monitor renal function and urine output.
--- NOTE | 2018-11-09 10:37 | P.CONS ---
History of Present Illness - Reason for Consult Consult date: 11/09/18 GI bleed melena Requesting physician: Bandar Paul - Chief Complaint Respiratory distress - History of Present Illness 58-year-old female admitted 11/03/2018 with respiratory distress hypotension with underlying history of RI, DVT, aortobifem bypass, severe pulmonary hypertension, diabetes mellitus, CAD/CABG, chronic kidney disease presently receiving dialysis. Bilateral lower extremity venous Doppler positive for DVT in the right lower extremity. Patient was placed on intravenous heparin and yesterday morning developed black tarry bowel movements. IV heparin discontinued bowel movements improved. Nursing states she had one small light- colored black bowel movement last night. No episodes of hematemesis or hematochezia. Receiving IV pressors but decreased today compared to yesterday. Labile blood pressures. Baseline hemoglobin averages between 9-11. On admission hemoglobin was 9.7 decreased 6.5 yesterday received 1 unit during dialysis presently 7.3. INR 0.9. Platelet 241. LFTs increased today total bilirubin 0.6. AST 932. ALT 563. AP 118. Admission LFTs normal. CT chest cardiomegaly bilateral pleural effusions possible congestive heart failure. No pulmonary mass. Review of Systems Constitutional: Confused obtained from nursing staff medical records Denies fever, chills, sweats, weight gain, or loss. HEENT: Negative for migraines, blurred vision or loss, earaches, drainage, tinnitus, oral mucosal lesions, dysphagia, or odynophagia. CARDIAC: Negative for chest pain, arrhythmias, or palpitation. RESPIRATORY: Admitted with shortness of breath no episodes of, hemoptysis, cough , positive for productive sputum production. GI: See HPI for pertinent findings. : Negative for hematuria, urgency, frequency, polyuria, or dysuria. GYNc: Negative vaginal discharge. MUSCULOSKELETAL: Negative for muscle aches, swelling, arthritis, and arthralgias. NEUROLOGIC: Negative for stroke or TIA. ENDOCRINE: Negative for thyroid problems. SKIN: Negative for rash or itching. PSYCHIATRIC: Negative history for depression and anxiety Past Medical History Past Medical History: Coronary Artery Disease (CAD), COPD, Diabetes Mellitus, Deep Vein Thrombosis (DVT), Eye Disorder, Hyperlipidemia, Hypertension, Liver Disease, Musculoskeletal Disorder, Neurologic Disorder, Pulmonary Embolus (PE), Renal Disease Additional Past Medical History / Comment(s): HX DVT RT LEG, STAGE 3 KIDNEY DISEASE, CATARACTS, RUPTURED DISC L5,S1,GALLSTONES, PVD, NEUROPATHY, BALANCE ISSUES/FALLS, SEASONAL ALLERGIES, MIGRAINES, DDD C-7, DM HAS INSULIN PUMP. History of Any Multi-Drug Resistant Organisms: None Reported Past Surgical History: Back Surgery, Section, Coronary Bypass/CABG, Heart Catheterization Additional Past Surgical History / Comment(s): 06-20-15 HAD AORTA BIFEM BYPASS AT [facility] IN [place], 4 VESSEL CABG 2008, LUMBAR DISECTOMY. Past Anesthesia/Blood Transfusion Reactions: Family History of Problems w/ Anesthesia, Motion Sickness, Postoperative Nausea & Vomiting (PONV) Additional Past Anesthesia/Blood Transfusion Reaction / Comm: VERTIGO. "Sister was under too long, almost ." Smoking Status: Former smoker - Past Family History Brother(s) Family Medical History: CVA/TIA Father Family Medical History: COPD, Hypertension, Myocardial Infarction (RI) Mother Family Medical History: CVA/TIA, Deep Vein Thrombosis (DVT), Myocardial Infarction (RI) Additional Family Medical History / Comment(s): SARITAUERYSM Medications and Allergies Home Medications Medication Instructions Recorded Confirmed Type Metoprolol Succinate (ER) [Toprol 50 mg PO DAILY@1600 07/18/15 11/03/18 History XL] Montelukast Sodium [Singulair] 10 mg PO HS 07/18/15 11/03/18 History Ramipril [Altace] 10 mg PO BID 07/18/15 11/03/18 History Albuterol Sulfate [Proair Hfa] 1 - 2 puff INHALATION RT-QID PRN 09/20/17 History Aspirin 325 mg PO DAILY 09/20/17 11/03/18 History Beclomethasone Dipropionate [Qvar 2 puff INHALATION RT-BID 09/20/17 11/03/18 History 80 mcg] Ergocalciferol (Vitamin D2) 50,000 unit PO FR 05/11/18 11/03/18 History [Vitamin D2] Acetaminophen Tab [Tylenol Tab] 650 mg PO Q6H PRN 11/03/18 11/03/18 History Cetirizine HCl/Pseudoephedrine 1 tab PO DAILY PRN 11/03/18 11/03/18 History [Zyrtec-D Tablet] Ferrous Sulfate [Feosol] 650 mg PO DAILY 11/03/18 11/03/18 History Insulin Aspart (For Pump) [NovoLOG 0.01 unit SQ-PUMP CONTINUOUS 11/03/18 History (For Pump)] [place]-3 Acid Ethyl Esters [Lovaza] 2 gm PO BID 11/03/18 11/03/18 History Pravastatin Sodium [Pravachol] 20 mg PO HS 11/03/18 11/03/18 History Allergies Allergy/AdvReac Type Severity Reaction Status Date / Time penicillin V Allergy BLISTERS Verified 11/03/18 15:59 ON HANDS AND FEET morphine AdvReac Nausea Verified 11/03/18 15:59 sulfamethoxazole AdvReac TOLD NOT Verified 11/03/18 15:59 [From Bactrim] TO TAKE BY KIDNEY trimethoprim [From Bactrim] AdvReac TOLD NOT Verified 11/03/18 15:59 TO TAKE BY KIDNEY Physical Exam Vitals: Vital Signs Temp Pulse Resp BP Pulse Ox 11/09/18 10:15 68 25 H 100/48 89 L 11/09/18 10:00 73 23 103/44 96 11/09/18 09:45 73 24 113/50 95 11/09/18 09:30 66 20 97/47 96 11/09/18 09:15 68 22 110/48 96 11/09/18 09:00 76 15 107/43 95 11/09/18 08:46 79 11/09/18 08:45 77 20 98/44 97 11/09/18 08:38 74 99 11/09/18 08:30 77 16 117/50 97 11/09/18 08:20 15 11/09/18 08:15 81 30 H 118/55 97 11/09/18 08:00 97.9 F 80 20 118/46 99 11/09/18 07:45 84 24 125/51 98 11/09/18 07:30 81 20 119/50 99 11/09/18 07:15 80 21 117/45 99 11/09/18 07:00 80 24 108/48 99 11/09/18 06:45 80 23 136/58 98 11/09/18 06:30 76 25 H 122/48 99 11/09/18 06:15 78 18 90/44 98 11/09/18 06:00 77 25 H 93/49 98 01/23/19 05:45 73 9 L 105/51 99 11/09/18 05:30 77 13 106/48 98 11/09/18 05:15 75 13 106/52 98 11/09/18 05:00 80 12 138/55 97 11/09/18 04:45 75 24 124/46 99 11/09/18 04:30 77 22 113/51 98 11/09/18 04:15 75 12 126/52 97 11/09/18 04:00 98.8 F 81 26 H 126/46 98 11/09/18 03:45 76 25 H 127/51 99 11/09/18 03:30 82 19 135/57 99 11/09/18 03:15 76 9 L 147/55 98 11/09/18 03:00 80 18 134/53 99 11/09/18 02:45 76 14 120/49 98 11/09/18 02:30 77 24 123/47 99 11/09/18 02:15 77 24 120/45 98 11/09/18 02:00 79 23 128/47 97 11/09/18 01:45 80 28 H 125/48 97 11/09/18 01:30 79 24 136/61 95 11/09/18 01:15 84 18 121/54 100 11/09/18 01:00 79 23 114/51 99 11/09/18 00:45 79 26 H 96/40 99 11/09/18 00:30 78 24 114/43 98 11/09/18 00:15 79 28 H 114/42 96 11/09/18 00:14 80 25 H 114/42 96 11/09/18 00:00 98.5 F 84 7 L 145/47 95 11/08/18 23:45 82 13 124/51 94 L 11/08/18 23:30 78 24 133/53 99 11/08/18 23:15 84 20 125/54 98 11/08/18 23:00 84 20 138/62 98 11/08/18 22:45 82 19 137/49 98 11/08/18 22:30 83 32 H 136/59 96 11/08/18 22:15 80 13 138/54 98 11/08/18 22:00 85 23 128/50 98 11/08/18 21:45 85 25 H 124/53 11/08/18 21:30 81 18 121/55 11/08/18 21:15 82 21 116/50 11/08/18 21:00 79 22 137/54 96 11/08/18 20:45 78 17 143/50 97 11/08/18 20:30 83 29 H 130/49 98 11/08/18 20:15 83 22 131/46 99 11/08/18 20:00 98.8 F 81 21 131/51 98 11/08/18 19:45 84 22 121/50 99 11/08/18 19:30 82 22 129/55 95 11/08/18 19:15 80 10 L 126/53 97 11/08/18 19:00 80 13 118/52 98 11/08/18 18:45 80 12 118/54 98 11/08/18 18:30 79 12 115/49 98 11/08/18 18:15 75 19 108/49 11/08/18 18:00 77 10 L 95/50 99 11/08/18 17:45 72 31 H 112/45 90 L 11/08/18 17:30 81 35 H 117/49 11/08/18 17:15 80 10 L 112/86 11/08/18 17:00 87 9 L 105/41 96 11/08/18 16:45 73 27 H 101/52 97 11/08/18 16:30 71 25 H 101/52 91 L 11/08/18 16:15 79 14 96/75 96 11/08/18 16:00 98.0 F 83 14 98/66 97 11/08/18 15:45 84 29 H 79/43 98 11/08/18 15:30 87 17 99 11/08/18 15:15 84 14 131/72 98 11/08/18 15:00 81 20 125/77 91 L 11/08/18 14:45 84 20 114/50 96 11/08/18 14:30 86 25 H 107/35 98 11/08/18 14:15 87 20 113/28 96 11/08/18 14:00 87 21 97/43 97 11/08/18 13:45 92 22 111/23 99 11/08/18 13:30 86 15 117/69 100 11/08/18 13:15 90 19 125/38 99 11/08/18 13:00 93 20 116/42 99 11/08/18 12:45 93 12 122/50 100 11/08/18 12:30 92 26 H 120/47 99 11/08/18 12:15 92 21 115/47 98 11/08/18 12:00 97.6 F 90 18 86/45 97 11/08/18 11:45 96 20 108/46 100 11/08/18 11:30 142 H 23 98/48 88 L 11/08/18 11:15 146 H 21 119/52 47 L 11/08/18 11:00 138 H 20 105/45 100 11/08/18 10:45 147 H 16 132/65 100 11/08/18 10:30 97.7 F 156 H 21 118/56 100 Intake and Output 11/08/18 11/09/18 11/09/18 22:59 06:59 14:59 Intake Total 826.989 680.159 377.081 Output Total 12 35 0 Balance 814.989 645.159 377.081 Intake: IV 400 450 250 Piperacillin-Tazobactam 2 100 .25 gm In Sodium Chloride 0.9% 100 ml @ 25 mls/hr IVPB Q8H [facility] Rx#: [id number] Sodium Chloride 0.9% 1, 400 450 150 000 ml @ 50 mls/hr IV . Q20H [facility] Rx#:[id number] Intake, IV Titration 426.989 230.159 127.081 Amount Amiodarone 450 mg In 244.012 140.669 87.163 Dextrose 5% in Water 250 ml @ 1 MG/MIN 34.53 mls/ hr IV .Q7H31M [facility] Rx#: [id number] Insulin Regular 100 unit 7.248 10.149 0 In Sodium Chloride 0.9% 100 ml @ Per Protocol IV .Q0M [facility] Rx#:[id number] Norepinephrine 16 mg In 175.729 79.341 39.918 Sodium Chloride 0.9% 250 ml @ Titrate IV .Q0M [facility] Rx#:[id number] Output: Urine 12 35 0 Other: Voiding Method Indwelling Catheter Indwelling Catheter Indwelling Catheter Weight 117.3 kg General appearance: The patient is alert, to self only. HET: Head is normocephalic and atraumatic. Pupils are equal and reactive. Oropharynx is clear without lesions. Neck: Supple without lymphadenopathy. Trachea midline. Heart: S1 S2. Regular rate and rhythm. Lungs: No crackles or wheezes are heard. Diminished in bases bilaterally Abdomen: Soft, nontender, nondistended with bowel sounds. No peritoneal signs. No palpable organomegaly or masses. Extremities: Normal skin color and turgor. No cyanosis, rash, ulceration, clubbing, or edema. Radial and pedal pulses are 2/4 bilaterally. Neurological: No focal deficits. Strength and sensation are grossly intact. Martinez tessie urine. Results CBC & Chem 7: 11/09/18 04:17 11/09/18 04:17 Labs: Abnormal Lab Results - Last 24 Hours (Table) 11/08/18 11/08/18 11/08/18 Range/Units 05:41 11:07 12:06 WBC (3.8-10.6) k/uL RBC (3.80-5.40) m/uL Hgb (11.4-16.0) gm/dL Hct (34.0-46.0) % MCHC (31.0-37.0) g/dL RDW (11.5-15.5) % Neutrophils # (1.3-7.7) k/uL Neutrophils # (Manual) (1.3-7.7) k/uL Monocytes # (0-1.0) k/uL Nucleated RBCs (0-0) /100 WBC Sodium (137-145) mmol/L BUN (7-17) mg/dL Creatinine (0.52-1.04) mg/dL Glucose (74-99) mg/dL POC Glucose (mg/dL) 142 H 169 H (75-99) mg/dL Calcium (8.4-10.2) mg/dL Phosphorus (2.5-4.5) mg/dL Magnesium (1.6-2.3) mg/dL AST (14-36) U/L ALT (9-52) U/L Total Protein (6.3-8.2) g/dL Albumin (3.5-5.0) g/dL Crossmatch See Detail 11/08/18 11/08/18 11/08/18 Range/Units 13:15 14:14 15:20 WBC (3.8-10.6) k/uL RBC (3.80-5.40) m/uL Hgb (11.4-16.0) gm/dL Hct (34.0-46.0) % MCHC (31.0-37.0) g/dL RDW (11.5-15.5) % Neutrophils # (1.3-7.7) k/uL Neutrophils # (Manual) (1.3-7.7) k/uL Monocytes # (0-1.0) k/uL Nucleated RBCs (0-0) /100 WBC Sodium (137-145) mmol/L BUN (7-17) mg/dL Creatinine (0.52-1.04) mg/dL Glucose (74-99) mg/dL POC Glucose (mg/dL) 176 H 174 H 170 H (75-99) mg/dL Calcium (8.4-10.2) mg/dL Phosphorus (2.5-4.5) mg/dL Magnesium (1.6-2.3) mg/dL AST (14-36) U/L ALT (9-52) U/L Total Protein (6.3-8.2) g/dL Albumin (3.5-5.0) g/dL Crossmatch 11/08/18 11/08/18 11/08/18 Range/Units 15:32 16:04 17:08 WBC 14.6 H (3.8-10.6) k/uL RBC 2.75 L (3.80-5.40) m/uL Hgb 8.0 L D (11.4-16.0) gm/dL Hct 26.2 L (34.0-46.0) % MCHC 30.4 L (31.0-37.0) g/dL RDW 18.1 H (11.5-15.5) % Neutrophils # 11.7 H (1.3-7.7) k/uL Neutrophils # (Manual) (1.3-7.7) k/uL Monocytes # 1.1 H (0-1.0) k/uL Nucleated RBCs (0-0) /100 WBC Sodium (137-145) mmol/L BUN (7-17) mg/dL Creatinine (0.52-1.04) mg/dL Glucose (74-99) mg/dL POC Glucose (mg/dL) 173 H 151 H (75-99) mg/dL Calcium (8.4-10.2) mg/dL Phosphorus (2.5-4.5) mg/dL Magnesium (1.6-2.3) mg/dL AST (14-36) U/L ALT (9-52) U/L Total Protein (6.3-8.2) g/dL Albumin (3.5-5.0) g/dL Crossmatch 11/08/18 11/08/18 11/08/18 Range/Units 18:10 19:00 19:50 WBC (3.8-10.6) k/uL RBC (3.80-5.40) m/uL Hgb (11.4-16.0) gm/dL Hct (34.0-46.0) % MCHC (31.0-37.0) g/dL RDW (11.5-15.5) % Neutrophils # (1.3-7.7) k/uL Neutrophils # (Manual) (1.3-7.7) k/uL Monocytes # (0-1.0) k/uL Nucleated RBCs (0-0) /100 WBC Sodium (137-145) mmol/L BUN (7-17) mg/dL Creatinine (0.52-1.04) mg/dL Glucose (74-99) mg/dL POC Glucose (mg/dL) 166 H 143 H 154 H (75-99) mg/dL Calcium (8.4-10.2) mg/dL Phosphorus (2.5-4.5) mg/dL Magnesium (1.6-2.3) mg/dL AST (14-36) U/L ALT (9-52) U/L Total Protein (6.3-8.2) g/dL Albumin (3.5-5.0) g/dL Crossmatch 11/08/18 11/08/18 11/08/18 Range/Units 21:04 22:03 23:06 WBC (3.8-10.6) k/uL RBC (3.80-5.40) m/uL Hgb (11.4-16.0) gm/dL Hct (34.0-46.0) % MCHC (31.0-37.0) g/dL RDW (11.5-15.5) % Neutrophils # (1.3-7.7) k/uL Neutrophils # (Manual) (1.3-7.7) k/uL Monocytes # (0-1.0) k/uL Nucleated RBCs (0-0) /100 WBC Sodium (137-145) mmol/L BUN (7-17) mg/dL Creatinine (0.52-1.04) mg/dL Glucose (74-99) mg/dL POC Glucose (mg/dL) 151 H 164 H 185 H (75-99) mg/dL Calcium (8.4-10.2) mg/dL Phosphorus (2.5-4.5) mg/dL Magnesium (1.6-2.3) mg/dL AST (14-36) U/L ALT (9-52) U/L Total Protein (6.3-8.2) g/dL Albumin (3.5-5.0) g/dL Crossmatch 11/09/18 11/09/18 11/09/18 Range/Units 00:11 01:12 02:58 WBC (3.8-10.6) k/uL RBC (3.80-5.40) m/uL Hgb (11.4-16.0) gm/dL Hct (34.0-46.0) % MCHC (31.0-37.0) g/dL RDW (11.5-15.5) % Neutrophils # (1.3-7.7) k/uL Neutrophils # (Manual) (1.3-7.7) k/uL Monocytes # (0-1.0) k/uL Nucleated RBCs (0-0) /100 WBC Sodium (137-145) mmol/L BUN (7-17) mg/dL Creatinine (0.52-1.04) mg/dL Glucose (74-99) mg/dL POC Glucose (mg/dL) 178 H 157 H 139 H (75-99) mg/dL Calcium (8.4-10.2) mg/dL Phosphorus (2.5-4.5) mg/dL Magnesium (1.6-2.3) mg/dL AST (14-36) U/L ALT (9-52) U/L Total Protein (6.3-8.2) g/dL Albumin (3.5-5.0) g/dL Crossmatch 11/09/18 11/09/18 11/09/18 Range/Units 04:04 04:17 04:17 WBC (3.8-10.6) k/uL RBC 2.58 L (3.80-5.40) m/uL Hgb 7.3 L (11.4-16.0) gm/dL Hct 24.6 L (34.0-46.0) % MCHC 29.5 L (31.0-37.0) g/dL RDW 18.4 H (11.5-15.5) % Neutrophils # (1.3-7.7) k/uL Neutrophils # (Manual) 8.50 H (1.3-7.7) k/uL Monocytes # (0-1.0) k/uL Nucleated RBCs 1 H (0-0) /100 WBC Sodium 135 L (137-145) mmol/L BUN 53 H (7-17) mg/dL Creatinine 4.53 H (0.52-1.04) mg/dL Glucose 123 H (74-99) mg/dL POC Glucose (mg/dL) 150 H (75-99) mg/dL Calcium 7.3 L (8.4-10.2) mg/dL Phosphorus 5.0 H (2.5-4.5) mg/dL Magnesium 2.4 H (1.6-2.3) mg/dL AST 932 H (14-36) U/L ALT 563 H (9-52) U/L Total Protein 4.6 L (6.3-8.2) g/dL Albumin 2.3 L (3.5-5.0) g/dL Crossmatch 11/09/18 11/09/18 11/09/18 Range/Units 04:59 06:05 06:58 WBC (3.8-10.6) k/uL RBC (3.80-5.40) m/uL Hgb (11.4-16.0) gm/dL Hct (34.0-46.0) % MCHC (31.0-37.0) g/dL RDW (11.5-15.5) % Neutrophils # (1.3-7.7) k/uL Neutrophils # (Manual) (1.3-7.7) k/uL Monocytes # (0-1.0) k/uL Nucleated RBCs (0-0) /100 WBC Sodium (137-145) mmol/L BUN (7-17) mg/dL Creatinine (0.52-1.04) mg/dL Glucose (74-99) mg/dL POC Glucose (mg/dL) 150 H 150 H 149 H (75-99) mg/dL Calcium (8.4-10.2) mg/dL Phosphorus (2.5-4.5) mg/dL Magnesium (1.6-2.3) mg/dL AST (14-36) U/L ALT (9-52) U/L Total Protein (6.3-8.2) g/dL Albumin (3.5-5.0) g/dL Crossmatch 11/09/18 11/09/18 11/09/18 Range/Units 08:08 09:12 09:59 WBC (3.8-10.6) k/uL RBC (3.80-5.40) m/uL Hgb (11.4-16.0) gm/dL Hct (34.0-46.0) % MCHC (31.0-37.0) g/dL RDW (11.5-15.5) % Neutrophils # (1.3-7.7) k/uL Neutrophils # (Manual) (1.3-7.7) k/uL Monocytes # (0-1.0) k/uL Nucleated RBCs (0-0) /100 WBC Sodium (137-145) mmol/L BUN (7-17) mg/dL Creatinine (0.52-1.04) mg/dL Glucose (74-99) mg/dL POC Glucose (mg/dL) 155 H 171 H 185 H (75-99) mg/dL Calcium (8.4-10.2) mg/dL Phosphorus (2.5-4.5) mg/dL Magnesium (1.6-2.3) mg/dL AST (14-36) U/L ALT (9-52) U/L Total Protein (6.3-8.2) g/dL Albumin (3.5-5.0) g/dL Crossmatch Microbiology - Last 24 Hours (Table) 11/07/18 06:04 Gram Stain - Final Sputum Sputum Culture - Final 11/07/18 00:04 Blood Culture - Preliminary Blood No Growth after [address] scan - chest: report reviewed (Dr. Sharif) Assessment and Plan Assessment: Impression: 1. Acute GI bleed melena after receiving intravenous heparin for right lower extremity DVT possible bleeding peptic ulcer disease possible bleeding AVM possible esophagitis gastritis duodenitis exacerbated by anticoagulation. 2. Acute on chronic anemia with component of acute blood loss with underlying chronic kidney disease receiving dialysis. 3. Transaminitis most likely related to episodes of hypotension shock liver ischemic hepatitis presently receiving IV pressors. Plan: 1. EGD tentative tomorrow IV pressors being weaned today. CBC CMP monitoring. Check ammonia. Agreeable for clear liquids. Protonix 40 mg IV twice daily. Thank you for this kind referral and the opportunity to participate in the care of your patient. This consultation was discussed with Dr. Sharif. The impression and plan of care have been directed as dictated.
[2018-11-09 11:48] LABS: Glucose,Whole Blood 150 mg/dL (75-99)
[2018-11-09 12:46] LABS: Glucose,Whole Blood 150 mg/dL (75-99)
[2018-11-09] MEDS ORDERED: HEPARIN SODIUM,PORCINE 5,000 UNIT/ML 1 ML VIAL ONE (13:10)
[2018-11-09 14:13] LABS: Glucose,Whole Blood 131 mg/dL (75-99)
[2018-11-09 15:21] LABS: Glucose,Whole Blood 133 mg/dL (75-99)
[2018-11-09] MEDS: ALPRAZolam 0.5 MG TAB PO PRN ×2 (15:34→21:46)
[2018-11-09] MEDS: METOPROLOL SUCCINATE (ER) 50 MG TAB.ER.24H PO SCH (16:50)
[2018-11-09 16:58] LABS: Glucose,Whole Blood 165 mg/dL (75-99)
[2018-11-09 19:21] LABS: Glucose,Whole Blood 172 mg/dL (75-99)
[2018-11-09] MEDS: MONTELUKAST 10 MG TAB PO SCH (20:51)
[2018-11-09] MEDS: PRAVASTATIN SODIUM 20 MG TAB PO SCH (20:51)
[2018-11-09 21:12] LABS: Glucose,Whole Blood 163 mg/dL (75-99)
[2018-11-09 22:14] LABS: Glucose,Whole Blood 171 mg/dL (75-99)
--- NOTE | 2018-11-09 23:17 | PN ---
PROGRESS NOTE DATE OF SERVICE: 11/09/2018 REASON FOR FOLLOWUP: Aspiration pneumonia. INTERVAL HISTORY: The patient is currently afebrile. She is breathing comfortably. She is more awake, alert, and did answer some simple questions. Currently off the BiPAP. No chest pain or cough. No abdominal pain. No nausea, vomiting or any diarrhea. PHYSICAL EXAMINATION: Blood pressure 106/46, pulse of , temperature of 98. She is 100% on 4 L nasal cannula. General description is a middle-aged female lying in bed in no distress. RESPIRATORY SYSTEM: Unlabored breathing with decreased breath sounds at the base. No wheeze. HEART: S1, S2. Regular rate and rhythm. ABDOMEN: Soft. Mildly distended. No guarding or rigidity. EXTREMITIES: Some trace edema of feet. LABS: Hemoglobin 7.3, white count 10.3, BUN of 53, creatinine 4.53. Blood and sputum cultures are so far negative. DIAGNOSTIC IMPRESSION AND PLAN: Patient with sepsis; concern likely from pneumonia, possible aspiration etiology. Patient is currently covered with Zosyn. That will continue for now while watching her clinical course closely. Continue with supportive care. MMODL / IJN: [id number] /
[2018-11-09 23:29] LABS: Glucose,Whole Blood 177 mg/dL (75-99)
[2018-11-09 23:55] LABS: Hepatitis B Surface AB- Quant 3.5 mIU/mL
[2018-11-09 23:56] LABS: Glucose,Whole Blood 167 mg/dL (75-99)
--- NOTE | 2018-11-10 01:02 | PN ---
PROGRESS NOTE SUBJECTIVE: This 58-year-old white female, hypoxemia, pulmonary embolism, DVT, systolic CHF, COPD. She is awake, moaning in pain, but she does respond appropriately. She knows where she is at. She is actually talking for the 1st time since her admission. She is being weaned off her Levophed. Possibly EGD will be done in the morning. She is on 4.5 mcg of Levophed at this time. Lungs scattered rales. Abdomen is soft. Psych: She appears anxious, nervous. Psych: She is giving appropriate answers. ASSESSMENT: 1. Deep vein thrombosis. 2. Pulmonary embolism. 3. Systolic congestive heart failure. 4. Chronic obstructive pulmonary disease. Wean off the BiPAP. She is on oral oxygen. Possibly EGD in the morning depending on labs. Continue current treatment. MMODL / IJN: [id number] /
[2018-11-10 01:21] LABS: Glucose,Whole Blood 181 mg/dL (75-99)
[2018-11-10 02:33] LABS: Glucose,Whole Blood 168 mg/dL (75-99)
[2018-11-10 03:22] LABS: Glucose,Whole Blood 174 mg/dL (75-99)
[2018-11-10 04:03] LABS: Glucose,Whole Blood 167 mg/dL (75-99)
[2018-11-10] MEDS: ALPRAZolam 0.5 MG TAB PO PRN ×3 (04:32→18:46)
[2018-11-10 05:18] LABS: Glucose,Whole Blood 183 mg/dL (75-99)
[2018-11-10 05:51] LABS: Anisocytosis Slight; Basophils % (A) 0 %; Eosinophils # (A) 0.2 k/uL (0-0.7); Eosinophils % (A) 2 %; HCT 26.3 % (34.0-46.0); HGB 7.6 gm/dL (11.4-16.0); Hypochromasia Marked; Lymphocytes % (A) 9 %; MCH 28.4 pg (25.0-35.0); MCHC 28.8 g/dL (31.0-37.0); MCV 98.7 fL (80.0-100.0); Macrocytosis Slight; Mean Platelet Volume 7.1; Monocytes # (A) 0.3 k/uL (0-1.0); Monocytes % (A) 3 %; Neutrophils # (A) 8.9 k/uL (1.3-7.7); Neutrophils % (A) 85 %; Platelet Count 229 k/uL (150-450); Poikilocytosis Slight; RBC 2.67 m/uL (3.80-5.40); RDW 18.7 % (11.5-15.5); WBC 10.6 k/uL (3.8-10.6)
[2018-11-10] MEDS: SODIUM CHLORIDE 0.9% 1,000 ML IV SCH ×2 (05:52→17:03)
[2018-11-10 06:33] LABS: Albumin 2.4 g/dL (3.5-5.0); Calcium 7.6 mg/dL (8.4-10.2); Magnesium 2.3 mg/dL (1.6-2.3); Phosphorus 7.2 mg/dL (2.5-4.5); Potassium 5.2 mmol/L (3.5-5.1); Total Bilirubin 0.7 mg/dL (0.2-1.3); Total Protein 4.7 g/dL (6.3-8.2)
[2018-11-10 06:57] LABS: Glucose,Whole Blood 184 mg/dL (75-99)
--- NOTE | 2018-11-10 07:37 | P.PN ---
Subjective Progress Note Date: 11/10/18 Principal diagnosis: CHF/cardiomyopathy This is a pleasant 58-year-old female patient with an extensive past medical history for her age consistent of coronary artery disease, peripheral arterial disease, diabetes, hypertension, dyslipidemia, and chronic kidney disease, was admitted to the hospital with chest discomfort and was ruled in for acute non- ST patient myocardial infarction and also with congestive heart failure secondary to systolic dysfunction. The patient was treated medically for the non-STEMI The echocardiogram revealed impaired LV function with EF of 35%, mild aortic stenosis, severe pulmonary hypertension, and moderate tricuspid regurgitation. On follow-up with the patient today, November 102018, she seems to be doing better clinically. Her mentation has improved. She is not as confused as yesterday. Hemodynamically she continues to require small dose of norepinephrine. She continues to be in normal sinus mechanism and no more episodes of atrial fibrillation. We did start the patient on amiodarone but we stopped that yesterday because of her liver function tests where elevated. The hemoglobin continues to be stable as well. She continues to be on dialysis. I did review the chest x-ray from today which showed possible right pleural effusion. Objective - Vital Signs Vital signs: Vital Signs Temp 98.0 F 11/10/18 04:00 Pulse 75 11/10/18 07:00 Resp 19 11/10/18 07:00 BP 101/51 11/10/18 07:00 Pulse Ox 100 11/10/18 07:00 Intake & Output 11/09/18 11/10/18 11/10/18 18:59 06:59 18:59 Intake Total 807.893 671.995 50 Output Total 13 11 0 Balance 794.893 660.995 50 Weight 116 kg Intake: IV 650 600 50 Piperacillin-Tazobactam 2 100 .25 gm In Sodium Chloride 0.9% 100 ml @ 25 mls/hr IVPB Q8H [facility] Rx#: [id number] Sodium Chloride 0.9% 1, 550 600 50 000 ml @ 50 mls/hr IV . Q20H [facility] Rx#:[id number] Intake, IV Titration 157.893 71.995 Amount Amiodarone 450 mg In 87.163 Dextrose 5% in Water 250 ml @ 1 MG/MIN 34.53 mls/ hr IV .Q7H31M [facility] Rx#: [id number] Insulin Regular 100 unit 1.963 8.659 In Sodium Chloride 0.9% 100 ml @ Per Protocol IV .Q0M [facility] Rx#:[id number] Norepinephrine 16 mg In 68.767 63.336 Sodium Chloride 0.9% 250 ml @ Titrate IV .Q0M [facility] Rx#:[id number] Output: Urine 10 10 0 Stool 3 1 Other: Voiding Method Indwelling Catheter Indwelling Catheter # Voids 0 # Bowel Movements 1 - Constitutional General appearance: Present: no acute distress - Respiratory Respiratory: bilateral: diminished - Cardiovascular Rhythm: regular Heart sounds: normal: S1, S2 - Labs CBC & Chem 7: 11/10/18 05:26 11/10/18 05:26 Labs: Abnormal Lab Results - Last 24 Hours (Table) 11/09/18 11/09/18 11/09/18 Range/Units 08:08 09:12 09:59 RBC (3.80-5.40) m/uL Hgb (11.4-16.0) gm/dL Hct (34.0-46.0) % MCHC (31.0-37.0) g/dL RDW (11.5-15.5) % Neutrophils # (1.3-7.7) k/uL Sodium (137-145) mmol/L Potassium (3.5-5.1) mmol/L BUN (7-17) mg/dL Creatinine (0.52-1.04) mg/dL Glucose (74-99) mg/dL POC Glucose (mg/dL) 155 H 171 H 185 H (75-99) mg/dL Calcium (8.4-10.2) mg/dL Phosphorus (2.5-4.5) mg/dL AST (14-36) U/L ALT (9-52) U/L Alkaline Phosphatase (38-126) U/L Total Protein (6.3-8.2) g/dL Albumin (3.5-5.0) g/dL 11/09/18 11/09/18 11/09/18 Range/Units 11:37 12:34 14:01 RBC (3.80-5.40) m/uL Hgb (11.4-16.0) gm/dL Hct (34.0-46.0) % MCHC (31.0-37.0) g/dL RDW (11.5-15.5) % Neutrophils # (1.3-7.7) k/uL Sodium (137-145) mmol/L Potassium (3.5-5.1) mmol/L BUN (7-17) mg/dL Creatinine (0.52-1.04) mg/dL Glucose (74-99) mg/dL POC Glucose (mg/dL) 150 H 150 H 131 H (75-99) mg/dL Calcium (8.4-10.2) mg/dL Phosphorus (2.5-4.5) mg/dL AST (14-36) U/L ALT (9-52) U/L Alkaline Phosphatase (38-126) U/L Total Protein (6.3-8.2) g/dL Albumin (3.5-5.0) g/dL 11/09/18 11/09/18 11/09/18 Range/Units 15:09 16:47 19:09 RBC (3.80-5.40) m/uL Hgb (11.4-16.0) gm/dL Hct (34.0-46.0) % MCHC (31.0-37.0) g/dL RDW (11.5-15.5) % Neutrophils # (1.3-7.7) k/uL Sodium (137-145) mmol/L Potassium (3.5-5.1) mmol/L BUN (7-17) mg/dL Creatinine (0.52-1.04) mg/dL Glucose (74-99) mg/dL POC Glucose (mg/dL) 133 H 165 H 172 H (75-99) mg/dL Calcium (8.4-10.2) mg/dL Phosphorus (2.5-4.5) mg/dL AST (14-36) U/L ALT (9-52) U/L Alkaline Phosphatase (38-126) U/L Total Protein (6.3-8.2) g/dL Albumin (3.5-5.0) g/dL 11/09/18 11/09/18 11/09/18 Range/Units 21:00 22:03 23:17 RBC (3.80-5.40) m/uL Hgb (11.4-16.0) gm/dL Hct (34.0-46.0) % MCHC (31.0-37.0) g/dL RDW (11.5-15.5) % Neutrophils # (1.3-7.7) k/uL Sodium (137-145) mmol/L Potassium (3.5-5.1) mmol/L BUN (7-17) mg/dL Creatinine (0.52-1.04) mg/dL Glucose (74-99) mg/dL POC Glucose (mg/dL) 163 H 171 H 177 H (75-99) mg/dL Calcium (8.4-10.2) mg/dL Phosphorus (2.5-4.5) mg/dL AST (14-36) U/L ALT (9-52) U/L Alkaline Phosphatase (38-126) U/L Total Protein (6.3-8.2) g/dL Albumin (3.5-5.0) g/dL 11/09/18 11/10/18 11/10/18 Range/Units 23:44 01:08 02:21 RBC (3.80-5.40) m/uL Hgb (11.4-16.0) gm/dL Hct (34.0-46.0) % MCHC (31.0-37.0) g/dL RDW (11.5-15.5) % Neutrophils # (1.3-7.7) k/uL Sodium (137-145) mmol/L Potassium (3.5-5.1) mmol/L BUN (7-17) mg/dL Creatinine (0.52-1.04) mg/dL Glucose (74-99) mg/dL POC Glucose (mg/dL) 167 H 181 H 168 H (75-99) mg/dL Calcium (8.4-10.2) mg/dL Phosphorus (2.5-4.5) mg/dL AST (14-36) U/L ALT (9-52) U/L Alkaline Phosphatase (38-126) U/L Total Protein (6.3-8.2) g/dL Albumin (3.5-5.0) g/dL 11/10/18 11/10/18 11/10/18 Range/Units 03:11 03:51 05:07 RBC (3.80-5.40) m/uL Hgb (11.4-16.0) gm/dL Hct (34.0-46.0) % MCHC (31.0-37.0) g/dL RDW (11.5-15.5) % Neutrophils # (1.3-7.7) k/uL Sodium (137-145) mmol/L Potassium (3.5-5.1) mmol/L BUN (7-17) mg/dL Creatinine (0.52-1.04) mg/dL Glucose (74-99) mg/dL POC Glucose (mg/dL) 174 H 167 H 183 H (75-99) mg/dL Calcium (8.4-10.2) mg/dL Phosphorus (2.5-4.5) mg/dL AST (14-36) U/L ALT (9-52) U/L Alkaline Phosphatase (38-126) U/L Total Protein (6.3-8.2) g/dL Albumin (3.5-5.0) g/dL 11/10/18 11/10/18 11/10/18 Range/Units 05:26 05:26 06:46 RBC 2.67 L (3.80-5.40) m/uL Hgb 7.6 L (11.4-16.0) gm/dL Hct 26.3 L (34.0-46.0) % MCHC 28.8 L (31.0-37.0) g/dL RDW 18.7 H (11.5-15.5) % Neutrophils # 8.9 H (1.3-7.7) k/uL Sodium 135 L (137-145) mmol/L Potassium 5.2 H (3.5-5.1) mmol/L BUN 44 H (7-17) mg/dL Creatinine 4.47 H (0.52-1.04) mg/dL Glucose 173 H (74-99) mg/dL POC Glucose (mg/dL) 184 H (75-99) mg/dL Calcium 7.6 L (8.4-10.2) mg/dL Phosphorus 7.2 H (2.5-4.5) mg/dL AST 684 H (14-36) U/L ALT 760 H (9-52) U/L Alkaline Phosphatase 128 H (38-126) U/L Total Protein 4.7 L (6.3-8.2) g/dL Albumin 2.4 L (3.5-5.0) g/dL Microbiology - Last 24 Hours (Table) 11/07/18 00:04 Blood Culture - Preliminary Blood No Growth after 72 hours 11/07/18 06:04 Gram Stain - Final Sputum Sputum Culture - Final Assessment and Plan Assessment: Assessment #1 systolic congestive heart failure exacerbation #2 acute non-ST elevation myocardial infarction #3 acute on chronic renal failure #4 peripheral vascular disease #5 systemic hypertension #6 hyperkalemia Plan #1 the patient is on dialysis now #2 the right wean the patient from the vasopressors #3 follow-up with the patient
[2018-11-10 08:02] LABS: Glucose,Whole Blood 180 mg/dL (75-99)
[2018-11-10] MEDS: NICOTINE 21MG/24HR PATCH TRANSDERM SCH (08:49)
[2018-11-10] MEDS: PANTOPRAZOLE 40 MG/10 ML VIAL IV SCH ×2 (08:49→20:31)
[2018-11-10] MEDS: ASPIRIN 81 MG PO SCH ×2 (08:49→12:29)
[2018-11-10] MEDS: FERROUS SULFATE 325 MG TAB PO SCH ×2 (08:49→12:29)
[2018-11-10] MEDS: PIPERACILLIN-TAZOBACTAM 3.375 GM in SODIUM CHLORIDE 0.9% 100 ML IVPB SCH ×2 (08:50→20:30)
[2018-11-10 09:11] LABS: Glucose,Whole Blood 171 mg/dL (75-99)
[2018-11-10] MEDS: FLUTICASONE 110 MCG INHALER INHALATION SCH ×2 (09:16→21:16)
[2018-11-10 10:11] LABS: Glucose,Whole Blood 152 mg/dL (75-99)
[2018-11-10] MEDS ORDERED: DESMOPRESSIN ACETATE 4 MCG/ML VIAL (MDV) IVPB ONE (10:11)
[2018-11-10] MEDS ORDERED: SODIUM CHLORIDE 0.9% IVPB ONE (10:15)
[2018-11-10] MEDS ORDERED: DESMOPRESSIN ACETATE IVPB ONE (10:15)
--- NOTE | 2018-11-10 10:42 | P.PN ---
Subjective Patient is seen in follow-up for acute kidney injury on chronic kidney disease. Patient has chronic kidney disease stage IV with baseline creatinine near 3 secondary to diabetic kidney disease. Due to worsening renal function and oliguria, she was started on hemodialysis on November 07. Mentation has not improved a little. Currently on 6 mics of Levophed. Remains oliguric. No active bleeding. She did receive a unit of blood this admission. Scheduled for endoscopy this afternoon. Afebrile. Currently on vasopressors. General: The patient appeared well nourished and normally developed. HEENT: Head exam is unremarkable. Neck is without jugular venous distension. On BiPAP. LUNGS: Breath sounds decreased. HEART: Rate and Rhythm are regular. First and second heart sounds normal. No murmurs, rubs or gallops. ABDOMEN: Abdominal exam reveals normal bowel sounds. Non-tender and non- distended. No evidence of peritonitis. EXTREMITITES: Trace edema. Objective - Vital Signs Vital signs: Vital Signs Temp 98.0 F 11/10/18 04:00 Pulse 77 11/10/18 10:00 Resp 31 H 11/10/18 10:00 BP 113/47 11/10/18 10:00 Pulse Ox 93 L 11/10/18 10:00 Intake & Output 11/09/18 11/10/18 11/10/18 18:59 06:59 18:59 Intake Total 807.893 671.995 205.926 Output Total 13 11 0 Balance 794.893 660.995 205.926 Weight 116 kg Intake: IV 650 600 200 Piperacillin-Tazobactam 2 100 .25 gm In Sodium Chloride 0.9% 100 ml @ 25 mls/hr IVPB Q8H [facility] Rx#: [id number] Sodium Chloride 0.9% 1, 550 600 200 000 ml @ 50 mls/hr IV . Q20H [facility] Rx#:[id number] Intake, IV Titration 157.893 71.995 5.926 Amount Amiodarone 450 mg In 87.163 Dextrose 5% in Water 250 ml @ 1 MG/MIN 34.53 mls/ hr IV .Q7H31M [facility] Rx#: [id number] Insulin Regular 100 unit 1.963 8.659 5.926 In Sodium Chloride 0.9% 100 ml @ Per Protocol IV .Q0M [facility] Rx#:[id number] Norepinephrine 16 mg In 68.767 63.336 Sodium Chloride 0.9% 250 ml @ Titrate IV .Q0M [facility] Rx#:[id number] Output: Urine 10 10 0 Stool 3 1 Other: Voiding Method Indwelling Catheter Indwelling Catheter # Voids 0 # Bowel Movements 1 - Labs CBC & Chem 7: 11/10/18 05:26 11/10/18 05:26 Labs: Abnormal Lab Results - Last 24 Hours (Table) 11/08/18 11/09/18 11/09/18 Range/Units 05:41 11:37 12:34 RBC (3.80-5.40) m/uL Hgb (11.4-16.0) gm/dL Hct (34.0-46.0) % MCHC (31.0-37.0) g/dL RDW (11.5-15.5) % Neutrophils # (1.3-7.7) k/uL Sodium (137-145) mmol/L Potassium (3.5-5.1) mmol/L BUN (7-17) mg/dL Creatinine (0.52-1.04) mg/dL Glucose (74-99) mg/dL POC Glucose (mg/dL) 150 H 150 H (75-99) mg/dL Calcium (8.4-10.2) mg/dL Phosphorus (2.5-4.5) mg/dL AST (14-36) U/L ALT (9-52) U/L Alkaline Phosphatase (38-126) U/L Total Protein (6.3-8.2) g/dL Albumin (3.5-5.0) g/dL Crossmatch See Detail 11/09/18 11/09/18 11/09/18 Range/Units 14:01 15:09 16:47 RBC (3.80-5.40) m/uL Hgb (11.4-16.0) gm/dL Hct (34.0-46.0) % MCHC (31.0-37.0) g/dL RDW (11.5-15.5) % Neutrophils # (1.3-7.7) k/uL Sodium (137-145) mmol/L Potassium (3.5-5.1) mmol/L BUN (7-17) mg/dL Creatinine (0.52-1.04) mg/dL Glucose (74-99) mg/dL POC Glucose (mg/dL) 131 H 133 H 165 H (75-99) mg/dL Calcium (8.4-10.2) mg/dL Phosphorus (2.5-4.5) mg/dL AST (14-36) U/L ALT (9-52) U/L Alkaline Phosphatase (38-126) U/L Total Protein (6.3-8.2) g/dL Albumin (3.5-5.0) g/dL Crossmatch 11/09/18 11/09/18 11/09/18 Range/Units 19:09 21:00 22:03 RBC (3.80-5.40) m/uL Hgb (11.4-16.0) gm/dL Hct (34.0-46.0) % MCHC (31.0-37.0) g/dL RDW (11.5-15.5) % Neutrophils # (1.3-7.7) k/uL Sodium (137-145) mmol/L Potassium (3.5-5.1) mmol/L BUN (7-17) mg/dL Creatinine (0.52-1.04) mg/dL Glucose (74-99) mg/dL POC Glucose (mg/dL) 172 H 163 H 171 H (75-99) mg/dL Calcium (8.4-10.2) mg/dL Phosphorus (2.5-4.5) mg/dL AST (14-36) U/L ALT (9-52) U/L Alkaline Phosphatase (38-126) U/L Total Protein (6.3-8.2) g/dL Albumin (3.5-5.0) g/dL Crossmatch 11/09/18 11/09/18 11/10/18 Range/Units 23:17 23:44 01:08 RBC (3.80-5.40) m/uL Hgb (11.4-16.0) gm/dL Hct (34.0-46.0) % MCHC (31.0-37.0) g/dL RDW (11.5-15.5) % Neutrophils # (1.3-7.7) k/uL Sodium (137-145) mmol/L Potassium (3.5-5.1) mmol/L BUN (7-17) mg/dL Creatinine (0.52-1.04) mg/dL Glucose (74-99) mg/dL POC Glucose (mg/dL) 177 H 167 H 181 H (75-99) mg/dL Calcium (8.4-10.2) mg/dL Phosphorus (2.5-4.5) mg/dL AST (14-36) U/L ALT (9-52) U/L Alkaline Phosphatase (38-126) U/L Total Protein (6.3-8.2) g/dL Albumin (3.5-5.0) g/dL Crossmatch 11/10/18 11/10/18 11/10/18 Range/Units 02:21 03:11 03:51 RBC (3.80-5.40) m/uL Hgb (11.4-16.0) gm/dL Hct (34.0-46.0) % MCHC (31.0-37.0) g/dL RDW (11.5-15.5) % Neutrophils # (1.3-7.7) k/uL Sodium (137-145) mmol/L Potassium (3.5-5.1) mmol/L BUN (7-17) mg/dL Creatinine (0.52-1.04) mg/dL Glucose (74-99) mg/dL POC Glucose (mg/dL) 168 H 174 H 167 H (75-99) mg/dL Calcium (8.4-10.2) mg/dL Phosphorus (2.5-4.5) mg/dL AST (14-36) U/L ALT (9-52) U/L Alkaline Phosphatase (38-126) U/L Total Protein (6.3-8.2) g/dL Albumin (3.5-5.0) g/dL Crossmatch 11/10/18 11/10/18 11/10/18 Range/Units 05:07 05:26 05:26 RBC 2.67 L (3.80-5.40) m/uL Hgb 7.6 L (11.4-16.0) gm/dL Hct 26.3 L (34.0-46.0) % MCHC 28.8 L (31.0-37.0) g/dL RDW 18.7 H (11.5-15.5) % Neutrophils # 8.9 H (1.3-7.7) k/uL Sodium 135 L (137-145) mmol/L Potassium 5.2 H (3.5-5.1) mmol/L BUN 44 H (7-17) mg/dL Creatinine 4.47 H (0.52-1.04) mg/dL Glucose 173 H (74-99) mg/dL POC Glucose (mg/dL) 183 H (75-99) mg/dL Calcium 7.6 L (8.4-10.2) mg/dL Phosphorus 7.2 H (2.5-4.5) mg/dL AST 684 H (14-36) U/L ALT 760 H (9-52) U/L Alkaline Phosphatase 128 H (38-126) U/L Total Protein 4.7 L (6.3-8.2) g/dL Albumin 2.4 L (3.5-5.0) g/dL Crossmatch 11/10/18 11/10/18 11/10/18 Range/Units 06:46 07:50 08:59 RBC (3.80-5.40) m/uL Hgb (11.4-16.0) gm/dL Hct (34.0-46.0) % MCHC (31.0-37.0) g/dL RDW (11.5-15.5) % Neutrophils # (1.3-7.7) k/uL Sodium (137-145) mmol/L Potassium (3.5-5.1) mmol/L BUN (7-17) mg/dL Creatinine (0.52-1.04) mg/dL Glucose (74-99) mg/dL POC Glucose (mg/dL) 184 H 180 H 171 H (75-99) mg/dL Calcium (8.4-10.2) mg/dL Phosphorus (2.5-4.5) mg/dL AST (14-36) U/L ALT (9-52) U/L Alkaline Phosphatase (38-126) U/L Total Protein (6.3-8.2) g/dL Albumin (3.5-5.0) g/dL Crossmatch 11/10/18 Range/Units 10:00 RBC (3.80-5.40) m/uL Hgb (11.4-16.0) gm/dL Hct (34.0-46.0) % MCHC (31.0-37.0) g/dL RDW (11.5-15.5) % Neutrophils # (1.3-7.7) k/uL Sodium (137-145) mmol/L Potassium (3.5-5.1) mmol/L BUN (7-17) mg/dL Creatinine (0.52-1.04) mg/dL Glucose (74-99) mg/dL POC Glucose (mg/dL) 152 H (75-99) mg/dL Calcium (8.4-10.2) mg/dL Phosphorus (2.5-4.5) mg/dL AST (14-36) U/L ALT (9-52) U/L Alkaline Phosphatase (38-126) U/L Total Protein (6.3-8.2) g/dL Albumin (3.5-5.0) g/dL Crossmatch Microbiology - Last 24 Hours (Table) 11/07/18 00:04 Blood Culture - Preliminary Blood No Growth after 72 hours 11/07/18 06:04 Gram Stain - Final Sputum Sputum Culture - Final Assessment and Plan Plan: Assessment: 1. Acute kidney injury secondary to ATN secondary to hypotension. Creatinine peaked at 5.85 and November 07 and was also oliguric. Currently hemodialysis dependent. No hydronephrosis noted on renal ultrasound. 2. Chronic kidney disease stage IV secondary to diabetic kidney disease and nephrosclerosis with baseline creatinine near 3 according to the patient. 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 3. Systolic CHF with ejection fraction of 30-35% with severe pulmonary hypertension and moderate tricuspid regurgitation. 4. Volume overload. Better. 5. Hypervolemic hyponatremia. Better. 6. Hyperkalemia secondary to acute kidney injury. 7. Diabetes mellitus. 8. Hypotension maintained on 6 mics of Levophed. 9. Hyperphosphatemia secondary to acute kidney injury. 10. Acute blood loss anemia secondary to GI bleed. Status post blood transfusion. Potential endoscopy later this afternoon. She is having black bowel movements. 11. NSTEMI. Cardiology following. Plan: Fourth treatment of hemodialysis today. Wean Levophed. Continue to monitor renal function and urine output. Add PhosLo with meals. I will give her a dose of IV DDAVP today.
--- NOTE | 2018-11-10 10:48 | P.PN ---
Progress Note - Text Progress Note Date: 11/10/18 [facility] Dr. Hogue cleared patient for EGD today but requests 1 unit of blood to be transfused today. Dr. Sharif agrees and requested 1 unit of blood to be transfused.
[2018-11-10 11:12] LABS: Glucose,Whole Blood 152 mg/dL (75-99)
--- NOTE | 2018-11-10 11:21 | XR ---
EXAMINATION TYPE: XR chest 1V DATE OF EXAM: 11/10/2018 COMPARISON: 11/09/2018 INDICATION: CHF TECHNIQUE: Single frontal view of the chest is obtained. FINDINGS: The heart size is enlarged. The pulmonary vasculature is normal. Mild right lower lobe infiltrate appears to be developing slightly worsening from prior study IMPRESSION: 1. Right lower lobe infiltrate. Correlate for atelectasis. Pneumonia could be considered. Atypical pu lmonary edema is within the differential. Follow-up can be performed as clinically indicated.
[2018-11-10 11:50] LABS: VBG PH 7.21 (7.31-7.41)
[2018-11-10 12:16] LABS: Glucose,Whole Blood 136 mg/dL (75-99)
[2018-11-10] MEDS: CALCIUM ACETATE 667 MG CAP PO SCH ×2 (12:29→17:05)
[2018-11-10 14:19] LABS: Glucose,Whole Blood 137 mg/dL (75-99)
[2018-11-10] MEDS ORDERED: MIDAZOLAM 2 MG/2 ML VIAL ONE (14:32)
[2018-11-10] MEDS ORDERED: KETAMINE 10 MG/ML 20 ML VIAL ONE (14:32)
[2018-11-10 15:13] LABS: Glucose,Whole Blood 133 mg/dL (75-99)
--- NOTE | 2018-11-10 15:50 | P.PCN ---
Date of Procedure: 11/10/18 Description of Procedure: BRIEF HISTORY: Patient is a 58-year-old, pleasant, female patient who is currently seen in the intensive care unit of the hospital. The patient had multiple episodes of dark melanotic stool after being started on heparin for a DVT. No known history of prior upper GI bleeding. Anticoagulation has been stopped at this time. EGD is plan for further investigation. PROCEDURE PERFORMED: Esophagogastroduodenoscopy with biopsy. PREOPERATIVE DIAGNOSIS: Anemia of acute blood loss, melena. ESTIMATED BLOOD LOSS: Minimal. IV sedation per anesthesia. PROCEDURE: After informed consent was obtained, the patient was brought into the endoscopy unit. IV sedation was administered by Anesthesia under continuous monitoring. Initially the Olympus GIF-190 video endoscope was inserted into the mouth. Esophagus intubated without any difficulty. It was gradually advanced into the stomach and duodenum and carefully examined. The bulb and the second part of the duodenum appeared normal. The scope at this time was withdrawn to the stomach, adequately insufflated with air, and upon careful examination, mucosa of the antrum, body, cardia and the fundus were examined and there was no old blood or active bleeding. There were focal areas where the mucosa of the stomach appeared pale suggestive of possible ischemia, with biopsies taken in these areas of the antrum and body. The scope was then withdrawn into the esophagus. The GE junction was located at 39 cm from the incisors. The esophagus appeared normal. There were no erosions or ulcerations seen and the patient tolerated the procedure well. IMPRESSION: 1. No old blood, or active GI bleeding. 2. Areas of focal pallor in the antrum and body suggestive of ischemia with biopsies taken. RECOMMENDATIONS: The findings of this examination were discussed with the patient and her daughter. Okay to resume aspirin therapy. Okay to resume anticoagulation as needed with monitoring of hemoglobin and hematocrit. Okay to start clear liquids when patient's mentation improves. Await results from tissue pathology. The gastroenterology service will continue to follow.
[2018-11-10 16:12] LABS: Glucose,Whole Blood 124 mg/dL (75-99)
[2018-11-10] MEDS ORDERED: DEXTROSE 5% IN WATER 1,000 ML with SODIUM BICARB (1 MEQ/ML) 100 ML IV SCH (17:00)
[2018-11-10] MEDS: METOPROLOL SUCCINATE (ER) 50 MG TAB.ER.24H PO SCH (17:04)
[2018-11-10 17:13] LABS: Glucose,Whole Blood 136 mg/dL (75-99)
--- NOTE | 2018-11-10 17:15 | P.PN ---
Subjective Progress Note Date: 11/09/18 (late entry note) Principal diagnosis: Acute renal failure, altered mental status likely related to acute renal failure , hypotension, severe sepsis, hypertension, and urea Right lower extremity venous thrombosis, chronic intermittent thromboembolism, pulmonary hypertension, biventricular failure, acute on chronic systolic heart failure, acute on chronic renal failure is stage IV, small bilateral pleural effusion likely related to heart failure, morbid obesity, suspect sleep disorder breathing and sleep apnea 11/08/2018, patient seen eval reexamined during the rounds clinically patient remains marginal continue require vasopressors currently patient is on 19 mics of levo fed drip, during dialysis patient had episode of the tachyarrhythmia requiring amiodarone now patient after the initial IV boluses back to sinus rhythm, hemodynamic status is overall stable but marginal, urine output remains very low, patient did tolerate the hemodialysis fairly well earlier this morning except the findings as noted to more old bleeding noted it appears to be old blood, patient is currently on desmopressin drip, also has been infused with 1 unit of packed RBC, heparin drip has been on hold since yesterday, vascular surgery has been consulted for evaluation of IVC filter as patient has deep venous thrombosis right lower extremity, sugars continue to be run on the higher side remains on insulin drip, patient is on proton pump inhibitor IV with frequent monitoring with monitoring observation her hemoglobin him to keep hemoglobin over 7 no active bleeding however has been noted by GI services has been consulted as well for GI bleed, Estrace standpoint tolerating BiPAP very well currently patient is on BiPAP with 12 of BiPAP the and 5 EPAP respiratory rate is 22 her spontaneous tidal volumes ranging in mid 400 range, she is on 40 % oxygen, arterial blood gas couldn't be drawn, labs medications and radiographic studies reviewed culture results are reviewed as well no positive cultures been seen patient remains on Zosyn, critical care time spent 35 minutes 11/07/2018, patient seen and evaluated examined during the rounds this morning critical care time spent 40 minutes, patient has removed to the ICU from medical floor as she was hypotensive with poor urine output in addition patient has been more somnolent and lethargic she did have receive a dose of Xanax on the floor, after arrival in ICU patient remains very hypotensive with tachycardia was given multiple fluid boluses to improve the hemodynamics however eventually starting the levo fed drip, patient does have 2 peripheral IVs one of them is not functioning very well, worsening of renal function has been noted the renal services planning to do hemodialysis, patient has very poor peripheral arterial disease unable to obtain ABG in addition to that very poor peripheral pulses are present, patient is arousable opens eyes follow simple commands but remains very anxious and agitated, patient eventually went up to 25 mics of levo fed drip with a systolic blood pressure ranging about 100 210, urine output has been very minimal, given that the lack of ability of IV axis will proceed with a central line however patient needed dialysis port as well will do a trilysis catheter (hemodialysis catheter with extra port), care plan discussed with the vascular surgery as well and renal services planning to do hemodialysis later on today provided hemodynamics remain stable, due to anticipated profound metabolic acidosis patient has been started on bicarb drip , patient is being kept on IV Zosyn heparin has been on hold due to procedures as well as elevated PTT labs reviewed medications reviewed radiographic studies reviewed as well 11/06/2018, patient seen evlauro examined during the rounds clinically patient has a been doing relatively better in terms of shortness of breath and swelling of the lower extremity patient is currently on room air however renal function continued to go up slightly and Lasix dose is being adjusted by renal service labs reviewed medications reviewed for now we'll continue IV heparin hopefully next 24-48 hours we'll switch it to oral anticoagulants 11/05/2018, patient seen evlauro reexamined during the rounds clinically has been doing relatively better in terms of breathing leg swelling the lower extremity is slightly better patient is on anticoagulation with IV heparin for DVT thrombosis of lower extremity on the right side also probable pulmonary embolism as well Patient presented to the hospital with worsening dyspnea and edema. Patient states she's been getting progressively short of breath over the last 1 week. She initially thought it was asthma but the symptoms did not improve with nebulized treatments. She also noticed edema in her legs. She states she does not take any diuretics at home. She admits to good urine output. No hematuria or dysuria. No vomiting or diarrhea. Oral intake has been fair. Denies use of NSAIDs. Chest CT revealed bilateral pleural effusions. Echocardiogram revealed ejection fraction of 35-40% with severe pulmonary hypertension. Currently maintained on Lasix 40 mg IV twice daily. She has been voiding. No fever or chills. Her duplex ultrasound of the lower extremity came back positive for DVT patient is now being started on IV heparin Objective - Vital Signs Vital signs: Vital Signs Temp 97.6 F 11/10/18 13:45 Pulse 73 11/10/18 17:00 Resp 34 H 11/10/18 17:00 BP 93/45 11/10/18 17:00 Pulse Ox 94 L 11/10/18 17:00 Intake & Output 11/09/18 11/10/18 11/10/18 18:59 06:59 18:59 Intake Total 807.893 671.995 966.451 Output Total 13 11 7 Balance 794.893 660.995 959.451 Weight 116 kg 116 kg Intake: IV 650 600 600 Desmopressin Acetate 35 50 mcg In Sodium Chloride 0. 9% 50 ml @ 200 mls/hr IVPB ONCE ONE Rx#: [id number] Piperacillin-Tazobactam 2 100 .25 gm In Sodium Chloride 0.9% 100 ml @ 25 mls/hr IVPB Q8H [facility] Rx#: [id number] Sodium Chloride 0.9% 1, 550 600 550 000 ml @ 50 mls/hr IV . Q20H [facility] Rx#:[id number] Intake, IV Titration 157.893 71.995 6.451 Amount Amiodarone 450 mg In 87.163 Dextrose 5% in Water 250 ml @ 1 MG/MIN 34.53 mls/ hr IV .Q7H31M [facility] Rx#: [id number] Insulin Regular 100 unit 1.963 8.659 6.451 In Sodium Chloride 0.9% 100 ml @ Per Protocol IV .Q0M [facility] Rx#:[id number] Norepinephrine 16 mg In 68.767 63.336 Sodium Chloride 0.9% 250 ml @ Titrate IV .Q0M [facility] Rx#:[id number] Oral 50 Blood Product 310 Rc As-1 Unit 310 [id number] Output: Urine 10 10 5 Stool 3 1 2 Other: Voiding Method Indwelling Catheter Indwelling Catheter Indwelling Catheter # Voids 0 0 # Bowel Movements 1 - Exam - Constitutional General appearance: disheveled, mild distress, morbidly obese, intermittently anxious and agitated and combative times - EENT Eyes: anicteric sclerae, EOMI, poor dentition, normal appearance ENT: normal oropharynx Ears: bilateral: normal - Neck Neck: normal ROM Carotids: bilateral: upstroke normal Thyroid: bilateral: normal size - Respiratory Respiratory: bilateral: CTA, few basal rales, negative: diminished, dullness - Cardiovascular Rhythm: regular Heart sounds: normal: S1, S2 - Integumentary Integumentary: normal turgor - Neurologic Neurologic: CNII-XII intact - Musculoskeletal Musculoskeletal: Moving all 4 extremity good tone in all 4 extremity,- Psychiatric Psychiatric: A&O x's 2, in appropriate affect, at times become anxious and agitated and combative - Labs CBC & Chem 7: 11/10/18 05:26 11/10/18 05:26 Labs: Abnormal Lab Results - Last 24 Hours (Table) 11/08/18 11/09/18 11/09/18 Range/Units 05:41 19:09 21:00 RBC (3.80-5.40) m/uL Hgb (11.4-16.0) gm/dL Hct (34.0-46.0) % MCHC (31.0-37.0) g/dL RDW (11.5-15.5) % Neutrophils # (1.3-7.7) k/uL VBG pH (7.31-7.41) VBG pCO2 (37-51) mmHg VBG HCO3 (24-28) mmol/L Sodium (137-145) mmol/L Potassium (3.5-5.1) mmol/L BUN (7-17) mg/dL Creatinine (0.52-1.04) mg/dL Glucose (74-99) mg/dL POC Glucose (mg/dL) 172 H 163 H (75-99) mg/dL Calcium (8.4-10.2) mg/dL Phosphorus (2.5-4.5) mg/dL AST (14-36) U/L ALT (9-52) U/L Alkaline Phosphatase (38-126) U/L Total Protein (6.3-8.2) g/dL Albumin (3.5-5.0) g/dL Crossmatch See Detail 11/09/18 11/09/18 11/09/18 Range/Units 22:03 23:17 23:44 RBC (3.80-5.40) m/uL Hgb (11.4-16.0) gm/dL Hct (34.0-46.0) % MCHC (31.0-37.0) g/dL RDW (11.5-15.5) % Neutrophils # (1.3-7.7) k/uL VBG pH (7.31-7.41) VBG pCO2 (37-51) mmHg VBG HCO3 (24-28) mmol/L Sodium (137-145) mmol/L Potassium (3.5-5.1) mmol/L BUN (7-17) mg/dL Creatinine (0.52-1.04) mg/dL Glucose (74-99) mg/dL POC Glucose (mg/dL) 171 H 177 H 167 H (75-99) mg/dL Calcium (8.4-10.2) mg/dL Phosphorus (2.5-4.5) mg/dL AST (14-36) U/L ALT (9-52) U/L Alkaline Phosphatase (38-126) U/L Total Protein (6.3-8.2) g/dL Albumin (3.5-5.0) g/dL Crossmatch 11/10/18 11/10/18 11/10/18 Range/Units 01:08 02:21 03:11 RBC (3.80-5.40) m/uL Hgb (11.4-16.0) gm/dL Hct (34.0-46.0) % MCHC (31.0-37.0) g/dL RDW (11.5-15.5) % Neutrophils # (1.3-7.7) k/uL VBG pH (7.31-7.41) VBG pCO2 (37-51) mmHg VBG HCO3 (24-28) mmol/L Sodium (137-145) mmol/L Potassium (3.5-5.1) mmol/L BUN (7-17) mg/dL Creatinine (0.52-1.04) mg/dL Glucose (74-99) mg/dL POC Glucose (mg/dL) 181 H 168 H 174 H (75-99) mg/dL Calcium (8.4-10.2) mg/dL Phosphorus (2.5-4.5) mg/dL AST (14-36) U/L ALT (9-52) U/L Alkaline Phosphatase (38-126) U/L Total Protein (6.3-8.2) g/dL Albumin (3.5-5.0) g/dL Crossmatch 11/10/18 11/10/18 11/10/18 Range/Units 03:51 05:07 05:26 RBC 2.67 L (3.80-5.40) m/uL Hgb 7.6 L (11.4-16.0) gm/dL Hct 26.3 L (34.0-46.0) % MCHC 28.8 L (31.0-37.0) g/dL RDW 18.7 H (11.5-15.5) % Neutrophils # 8.9 H (1.3-7.7) k/uL VBG pH (7.31-7.41) VBG pCO2 (37-51) mmHg VBG HCO3 (24-28) mmol/L Sodium (137-145) mmol/L Potassium (3.5-5.1) mmol/L BUN (7-17) mg/dL Creatinine (0.52-1.04) mg/dL Glucose (74-99) mg/dL POC Glucose (mg/dL) 167 H 183 H (75-99) mg/dL Calcium (8.4-10.2) mg/dL Phosphorus (2.5-4.5) mg/dL AST (14-36) U/L ALT (9-52) U/L Alkaline Phosphatase (38-126) U/L Total Protein (6.3-8.2) g/dL Albumin (3.5-5.0) g/dL Crossmatch 11/10/18 11/10/18 11/10/18 Range/Units 05:26 06:46 07:50 RBC (3.80-5.40) m/uL Hgb (11.4-16.0) gm/dL Hct (34.0-46.0) % MCHC (31.0-37.0) g/dL RDW (11.5-15.5) % Neutrophils # (1.3-7.7) k/uL VBG pH (7.31-7.41) VBG pCO2 (37-51) mmHg VBG HCO3 (24-28) mmol/L Sodium 135 L (137-145) mmol/L Potassium 5.2 H (3.5-5.1) mmol/L BUN 44 H (7-17) mg/dL Creatinine 4.47 H (0.52-1.04) mg/dL Glucose 173 H (74-99) mg/dL POC Glucose (mg/dL) 184 H 180 H (75-99) mg/dL Calcium 7.6 L (8.4-10.2) mg/dL Phosphorus 7.2 H (2.5-4.5) mg/dL AST 684 H (14-36) U/L ALT 760 H (9-52) U/L Alkaline Phosphatase 128 H (38-126) U/L Total Protein 4.7 L (6.3-8.2) g/dL Albumin 2.4 L (3.5-5.0) g/dL Crossmatch 11/10/18 11/10/18 11/10/18 Range/Units 08:59 10:00 11:01 RBC (3.80-5.40) m/uL Hgb (11.4-16.0) gm/dL Hct (34.0-46.0) % MCHC (31.0-37.0) g/dL RDW (11.5-15.5) % Neutrophils # (1.3-7.7) k/uL VBG pH (7.31-7.41) VBG pCO2 (37-51) mmHg VBG HCO3 (24-28) mmol/L Sodium (137-145) mmol/L Potassium (3.5-5.1) mmol/L BUN (7-17) mg/dL Creatinine (0.52-1.04) mg/dL Glucose (74-99) mg/dL POC Glucose (mg/dL) 171 H 152 H 152 H (75-99) mg/dL Calcium (8.4-10.2) mg/dL Phosphorus (2.5-4.5) mg/dL AST (14-36) U/L ALT (9-52) U/L Alkaline Phosphatase (38-126) U/L Total Protein (6.3-8.2) g/dL Albumin (3.5-5.0) g/dL Crossmatch 11/10/18 11/10/18 11/10/18 Range/Units 11:06 12:06 14:08 RBC (3.80-5.40) m/uL Hgb (11.4-16.0) gm/dL Hct (34.0-46.0) % MCHC (31.0-37.0) g/dL RDW (11.5-15.5) % Neutrophils # (1.3-7.7) k/uL VBG pH 7.21 L (7.31-7.41) VBG pCO2 61 H (37-51) mmHg VBG HCO3 23 L (24-28) mmol/L Sodium (137-145) mmol/L Potassium (3.5-5.1) mmol/L BUN (7-17) mg/dL Creatinine (0.52-1.04) mg/dL Glucose (74-99) mg/dL POC Glucose (mg/dL) 136 H 137 H (75-99) mg/dL Calcium (8.4-10.2) mg/dL Phosphorus (2.5-4.5) mg/dL AST (14-36) U/L ALT (9-52) U/L Alkaline Phosphatase (38-126) U/L Total Protein (6.3-8.2) g/dL Albumin (3.5-5.0) g/dL Crossmatch 11/10/18 11/10/18 Range/Units 15:02 16:00 RBC (3.80-5.40) m/uL Hgb (11.4-16.0) gm/dL Hct (34.0-46.0) % MCHC (31.0-37.0) g/dL RDW (11.5-15.5) % Neutrophils # (1.3-7.7) k/uL VBG pH (7.31-7.41) VBG pCO2 (37-51) mmHg VBG HCO3 (24-28) mmol/L Sodium (137-145) mmol/L Potassium (3.5-5.1) mmol/L BUN (7-17) mg/dL Creatinine (0.52-1.04) mg/dL Glucose (74-99) mg/dL POC Glucose (mg/dL) 133 H 124 H (75-99) mg/dL Calcium (8.4-10.2) mg/dL Phosphorus (2.5-4.5) mg/dL AST (14-36) U/L ALT (9-52) U/L Alkaline Phosphatase (38-126) U/L Total Protein (6.3-8.2) g/dL Albumin (3.5-5.0) g/dL Crossmatch Microbiology - Last 24 Hours (Table) 11/07/18 00:04 Blood Culture - Preliminary Blood No Growth after 72 hours Assessment and Plan Assessment: Acute renal failure and anuric Severe sepsis on broad-spectrum antibiotics GI bleed of unclear source status post blood transfusion Altered mental status and metabolic encephalopathy likely multifactorial related to renal failure Deep venous thrombosis of right lower extremity 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 Severe pulmonary hypertension Biventricular failure with acute on chronic systolic heart failure Small bilateral pleural effusion Plan: Anticoagulation currently is on hold because of ongoing bleeding and drop in hemoglobin, vascular surgery as well as GI services are following, GI is planning for endoscopy vascular surgery was to hold on IVC filter for now Continue daily hemodialysis Blood transfusion as needed keep hemoglobin over 7 Optimize therapy for heart failure Monitor renal functions closely Further recommendations pending plan of care as per clinical response of the patient Bicarb drip has been tapered off due to dialysis Taper levo fed drip as tolerated Continue BiPAP each night and when necessary in between nasal cannula, arterial blood gas performed this morning noted Haldol when necessary As per discussion with the it appears that altered mental status is not new and has been present for over a month, and as renal functions have been progressively getting worse patient's mental status was worsening with development of confusion. Patient however remains very awake respond appropriately with intermittent episodes of confusion when addressed directly long-term prognosis poor Time with Patient: Greater than 30
--- NOTE | 2018-11-10 17:20 | P.PN ---
Subjective Progress Note Date: 11/10/18 (Critical care time spent 35 minutes) Principal diagnosis: Acute renal failure, altered mental status likely related to acute renal failure , hypotension, severe sepsis, hypertension, and urea Right lower extremity venous thrombosis, chronic intermittent thromboembolism, pulmonary hypertension, biventricular failure, acute on chronic systolic heart failure, acute on chronic renal failure is stage IV, small bilateral pleural effusion likely related to heart failure, morbid obesity, suspect sleep disorder breathing and sleep apnea 11/10/2018, patient seen eval reexamined during the rounds clinically patient has a not much change from baseline has been transfused 1 unit of packed RBC patient to has been more lethargic but readily arousable arterial blood gas couldn't be obtained a venous blood gas has been performed continued to show respiratory acidosis combined with metabolic acidosis, patient is due for dialysis today also been planned for EGD which has been performed some gastritis has been noted with some white patches suggestive of ischemic changes cannot be excluded for details please refer to EGD note, patient remains on 7 mics of levo fed which is to be titrated down as blood pressure has improved, we will do low-dose bicarb drip as well patient did receive a dose of desmopressin earlier this morning, patient remains on BiPAP 15/10 with the FiO2 to keep saturation over 90-94%, patient remain somnolent and lethargic but readily arousable respond appropriately when awake then goes right back to sleep , patient did receive a dose of Xanax 11/08/2018, patient seen eval reexamined during the rounds clinically patient remains marginal continue require vasopressors currently patient is on 19 mics of levo fed drip, during dialysis patient had episode of the tachyarrhythmia requiring amiodarone now patient after the initial IV boluses back to sinus rhythm, hemodynamic status is overall stable but marginal, urine output remains very low, patient did tolerate the hemodialysis fairly well earlier this morning except the findings as noted to more old bleeding noted it appears to be old blood, patient is currently on desmopressin drip, also has been infused with 1 unit of packed RBC, heparin drip has been on hold since yesterday, vascular surgery has been consulted for evaluation of IVC filter as patient has deep venous thrombosis right lower extremity, sugars continue to be run on the higher side remains on insulin drip, patient is on proton pump inhibitor IV with frequent monitoring with monitoring observation her hemoglobin him to keep hemoglobin over 7 no active bleeding however has been noted by GI services has been consulted as well for GI bleed, Estrace standpoint tolerating BiPAP very well currently patient is on BiPAP with 12 of BiPAP the and 5 EPAP respiratory rate is 22 her spontaneous tidal volumes ranging in mid 400 range, she is on 40 % oxygen, arterial blood gas couldn't be drawn, labs medications and radiographic studies reviewed culture results are reviewed as well no positive cultures been seen patient remains on Zosyn, critical care time spent 35 minutes 11/07/2018, patient seen and evaluated examined during the rounds this morning critical care time spent 40 minutes, patient has removed to the ICU from medical floor as she was hypotensive with poor urine output in addition patient has been more somnolent and lethargic she did have receive a dose of Xanax on the floor, after arrival in ICU patient remains very hypotensive with tachycardia was given multiple fluid boluses to improve the hemodynamics however eventually starting the levo fed drip, patient does have 2 peripheral IVs one of them is not functioning very well, worsening of renal function has been noted the renal services planning to do hemodialysis, patient has very poor peripheral arterial disease unable to obtain ABG in addition to that very poor peripheral pulses are present, patient is arousable opens eyes follow simple commands but remains very anxious and agitated, patient eventually went up to 25 mics of levo fed drip with a systolic blood pressure ranging about 100 210, urine output has been very minimal, given that the lack of ability of IV axis will proceed with a central line however patient needed dialysis port as well will do a trilysis catheter (hemodialysis catheter with extra port), care plan discussed with the vascular surgery as well and renal services planning to do hemodialysis later on today provided hemodynamics remain stable, due to anticipated profound metabolic acidosis patient has been started on bicarb drip , patient is being kept on IV Zosyn heparin has been on hold due to procedures as well as elevated PTT labs reviewed medications reviewed radiographic studies reviewed as well 11/06/2018, patient seen eval examined during the rounds clinically patient has a been doing relatively better in terms of shortness of breath and swelling of the lower extremity patient is currently on room air however renal function continued to go up slightly and Lasix dose is being adjusted by renal service labs reviewed medications reviewed for now we'll continue IV heparin hopefully next 24-48 hours we'll switch it to oral anticoagulants 11/05/2018, patient seen eval reexamined during the rounds clinically has been doing relatively better in terms of breathing leg swelling the lower extremity is slightly better patient is on anticoagulation with IV heparin for DVT thrombosis of lower extremity on the right side also probable pulmonary embolism as well Patient presented to the hospital with worsening dyspnea and edema. Patient states she's been getting progressively short of breath over the last 1 week. She initially thought it was asthma but the symptoms did not improve with nebulized treatments. She also noticed edema in her legs. She states she does not take any diuretics at home. She admits to good urine output. No hematuria or dysuria. No vomiting or diarrhea. Oral intake has been fair. Denies use of NSAIDs. Chest CT revealed bilateral pleural effusions. Echocardiogram revealed ejection fraction of 35-40% with severe pulmonary hypertension. Currently maintained on Lasix 40 mg IV twice daily. She has been voiding. No fever or chills. Her duplex ultrasound of the lower extremity came back positive for DVT patient is now being started on IV heparin Objective - Vital Signs Vital signs: Vital Signs Temp 97.6 F 11/10/18 13:45 Pulse 73 11/10/18 17:00 Resp 34 H 11/10/18 17:00 BP 93/45 11/10/18 17:00 Pulse Ox 94 L 11/10/18 17:00 Intake & Output 11/09/18 11/10/18 11/10/18 18:59 06:59 18:59 Intake Total 807.893 671.995 966.451 Output Total 13 11 7 Balance 794.893 660.995 959.451 Weight 116 kg 116 kg Intake: IV 650 600 600 Desmopressin Acetate 35 50 mcg In Sodium Chloride 0. 9% 50 ml @ 200 mls/hr IVPB ONCE ONE Rx#: [id number] Piperacillin-Tazobactam 2 100 .25 gm In Sodium Chloride 0.9% 100 ml @ 25 mls/hr IVPB Q8H [facility] Rx#: [id number] Sodium Chloride 0.9% 1, 550 600 550 000 ml @ 50 mls/hr IV . Q20H [facility] Rx#:[id number] Intake, IV Titration 157.893 71.995 6.451 Amount Amiodarone 450 mg In 87.163 Dextrose 5% in Water 250 ml @ 1 MG/MIN 34.53 mls/ hr IV .Q7H31M [facility] Rx#: [id number] Insulin Regular 100 unit 1.963 8.659 6.451 In Sodium Chloride 0.9% 100 ml @ Per Protocol IV .Q0M [facility] Rx#:[id number] Norepinephrine 16 mg In 68.767 63.336 Sodium Chloride 0.9% 250 ml @ Titrate IV .Q0M [facility] Rx#:[id number] Oral 50 Blood Product 310 Rc As-1 Unit 310 [id number] Output: Urine 10 10 5 Stool 3 1 2 Other: Voiding Method Indwelling Catheter Indwelling Catheter Indwelling Catheter # Voids 0 0 # Bowel Movements 1 - Exam - Constitutional General appearance: disheveled, mild distress, morbidly obese, intermittently anxious and agitated and combative times - EENT Eyes: anicteric sclerae, EOMI, poor dentition, normal appearance ENT: normal oropharynx Ears: bilateral: normal - Neck Neck: normal ROM Carotids: bilateral: upstroke normal Thyroid: bilateral: normal size - Respiratory Respiratory: bilateral: CTA, few basal rales, negative: diminished, dullness - Cardiovascular Rhythm: regular Heart sounds: normal: S1, S2 - Integumentary Integumentary: normal turgor - Neurologic Neurologic: CNII-XII intact - Musculoskeletal Musculoskeletal: Moving all 4 extremity good tone in all 4 extremity,- Psychiatric Psychiatric: A&O x's 2, in appropriate affect, at times become anxious and agitated and combative - Labs CBC & Chem 7: 11/10/18 05:26 11/10/18 05:26 Labs: Abnormal Lab Results - Last 24 Hours (Table) 11/08/18 11/09/18 11/09/18 Range/Units 05:41 19:09 21:00 RBC (3.80-5.40) m/uL Hgb (11.4-16.0) gm/dL Hct (34.0-46.0) % MCHC (31.0-37.0) g/dL RDW (11.5-15.5) % Neutrophils # (1.3-7.7) k/uL VBG pH (7.31-7.41) VBG pCO2 (37-51) mmHg VBG HCO3 (24-28) mmol/L Sodium (137-145) mmol/L Potassium (3.5-5.1) mmol/L BUN (7-17) mg/dL Creatinine (0.52-1.04) mg/dL Glucose (74-99) mg/dL POC Glucose (mg/dL) 172 H 163 H (75-99) mg/dL Calcium (8.4-10.2) mg/dL Phosphorus (2.5-4.5) mg/dL AST (14-36) U/L ALT (9-52) U/L Alkaline Phosphatase (38-126) U/L Total Protein (6.3-8.2) g/dL Albumin (3.5-5.0) g/dL Crossmatch See Detail 11/09/18 11/09/18 11/09/18 Range/Units 22:03 23:17 23:44 RBC (3.80-5.40) m/uL Hgb (11.4-16.0) gm/dL Hct (34.0-46.0) % MCHC (31.0-37.0) g/dL RDW (11.5-15.5) % Neutrophils # (1.3-7.7) k/uL VBG pH (7.31-7.41) VBG pCO2 (37-51) mmHg VBG HCO3 (24-28) mmol/L Sodium (137-145) mmol/L Potassium (3.5-5.1) mmol/L BUN (7-17) mg/dL Creatinine (0.52-1.04) mg/dL Glucose (74-99) mg/dL POC Glucose (mg/dL) 171 H 177 H 167 H (75-99) mg/dL Calcium (8.4-10.2) mg/dL Phosphorus (2.5-4.5) mg/dL AST (14-36) U/L ALT (9-52) U/L Alkaline Phosphatase (38-126) U/L Total Protein (6.3-8.2) g/dL Albumin (3.5-5.0) g/dL Crossmatch 11/10/18 11/10/18 11/10/18 Range/Units 01:08 02:21 03:11 RBC (3.80-5.40) m/uL Hgb (11.4-16.0) gm/dL Hct (34.0-46.0) % MCHC (31.0-37.0) g/dL RDW (11.5-15.5) % Neutrophils # (1.3-7.7) k/uL VBG pH (7.31-7.41) VBG pCO2 (37-51) mmHg VBG HCO3 (24-28) mmol/L Sodium (137-145) mmol/L Potassium (3.5-5.1) mmol/L BUN (7-17) mg/dL Creatinine (0.52-1.04) mg/dL Glucose (74-99) mg/dL POC Glucose (mg/dL) 181 H 168 H 174 H (75-99) mg/dL Calcium (8.4-10.2) mg/dL Phosphorus (2.5-4.5) mg/dL AST (14-36) U/L ALT (9-52) U/L Alkaline Phosphatase (38-126) U/L Total Protein (6.3-8.2) g/dL Albumin (3.5-5.0) g/dL Crossmatch 11/10/18 11/10/18 11/10/18 Range/Units 03:51 05:07 05:26 RBC 2.67 L (3.80-5.40) m/uL Hgb 7.6 L (11.4-16.0) gm/dL Hct 26.3 L (34.0-46.0) % MCHC 28.8 L (31.0-37.0) g/dL RDW 18.7 H (11.5-15.5) % Neutrophils # 8.9 H (1.3-7.7) k/uL VBG pH (7.31-7.41) VBG pCO2 (37-51) mmHg VBG HCO3 (24-28) mmol/L Sodium (137-145) mmol/L Potassium (3.5-5.1) mmol/L BUN (7-17) mg/dL Creatinine (0.52-1.04) mg/dL Glucose (74-99) mg/dL POC Glucose (mg/dL) 167 H 183 H (75-99) mg/dL Calcium (8.4-10.2) mg/dL Phosphorus (2.5-4.5) mg/dL AST (14-36) U/L ALT (9-52) U/L Alkaline Phosphatase (38-126) U/L Total Protein (6.3-8.2) g/dL Albumin (3.5-5.0) g/dL Crossmatch 11/10/18 11/10/18 11/10/18 Range/Units 05:26 06:46 07:50 RBC (3.80-5.40) m/uL Hgb (11.4-16.0) gm/dL Hct (34.0-46.0) % MCHC (31.0-37.0) g/dL RDW (11.5-15.5) % Neutrophils # (1.3-7.7) k/uL VBG pH (7.31-7.41) VBG pCO2 (37-51) mmHg VBG HCO3 (24-28) mmol/L Sodium 135 L (137-145) mmol/L Potassium 5.2 H (3.5-5.1) mmol/L BUN 44 H (7-17) mg/dL Creatinine 4.47 H (0.52-1.04) mg/dL Glucose 173 H (74-99) mg/dL POC Glucose (mg/dL) 184 H 180 H (75-99) mg/dL Calcium 7.6 L (8.4-10.2) mg/dL Phosphorus 7.2 H (2.5-4.5) mg/dL AST 684 H (14-36) U/L ALT 760 H (9-52) U/L Alkaline Phosphatase 128 H (38-126) U/L Total Protein 4.7 L (6.3-8.2) g/dL Albumin 2.4 L (3.5-5.0) g/dL Crossmatch 11/10/18 11/10/18 11/10/18 Range/Units 08:59 10:00 11:01 RBC (3.80-5.40) m/uL Hgb (11.4-16.0) gm/dL Hct (34.0-46.0) % MCHC (31.0-37.0) g/dL RDW (11.5-15.5) % Neutrophils # (1.3-7.7) k/uL VBG pH (7.31-7.41) VBG pCO2 (37-51) mmHg VBG HCO3 (24-28) mmol/L Sodium (137-145) mmol/L Potassium (3.5-5.1) mmol/L BUN (7-17) mg/dL Creatinine (0.52-1.04) mg/dL Glucose (74-99) mg/dL POC Glucose (mg/dL) 171 H 152 H 152 H (75-99) mg/dL Calcium (8.4-10.2) mg/dL Phosphorus (2.5-4.5) mg/dL AST (14-36) U/L ALT (9-52) U/L Alkaline Phosphatase (38-126) U/L Total Protein (6.3-8.2) g/dL Albumin (3.5-5.0) g/dL Crossmatch 11/10/18 11/10/18 11/10/18 Range/Units 11:06 12:06 14:08 RBC (3.80-5.40) m/uL Hgb (11.4-16.0) gm/dL Hct (34.0-46.0) % MCHC (31.0-37.0) g/dL RDW (11.5-15.5) % Neutrophils # (1.3-7.7) k/uL VBG pH 7.21 L (7.31-7.41) VBG pCO2 61 H (37-51) mmHg VBG HCO3 23 L (24-28) mmol/L Sodium (137-145) mmol/L Potassium (3.5-5.1) mmol/L BUN (7-17) mg/dL Creatinine (0.52-1.04) mg/dL Glucose (74-99) mg/dL POC Glucose (mg/dL) 136 H 137 H (75-99) mg/dL Calcium (8.4-10.2) mg/dL Phosphorus (2.5-4.5) mg/dL AST (14-36) U/L ALT (9-52) U/L Alkaline Phosphatase (38-126) U/L Total Protein (6.3-8.2) g/dL Albumin (3.5-5.0) g/dL Crossmatch 11/10/18 11/10/18 11/10/18 Range/Units 15:02 16:00 17:02 RBC (3.80-5.40) m/uL Hgb (11.4-16.0) gm/dL Hct (34.0-46.0) % MCHC (31.0-37.0) g/dL RDW (11.5-15.5) % Neutrophils # (1.3-7.7) k/uL VBG pH (7.31-7.41) VBG pCO2 (37-51) mmHg VBG HCO3 (24-28) mmol/L Sodium (137-145) mmol/L Potassium (3.5-5.1) mmol/L BUN (7-17) mg/dL Creatinine (0.52-1.04) mg/dL Glucose (74-99) mg/dL POC Glucose (mg/dL) 133 H 124 H 136 H (75-99) mg/dL Calcium (8.4-10.2) mg/dL Phosphorus (2.5-4.5) mg/dL AST (14-36) U/L ALT (9-52) U/L Alkaline Phosphatase (38-126) U/L Total Protein (6.3-8.2) g/dL Albumin (3.5-5.0) g/dL Crossmatch Microbiology - Last 24 Hours (Table) 11/07/18 00:04 Blood Culture - Preliminary Blood No Growth after 72 hours Assessment and Plan Assessment: Acute on chronic renal failure and anuric Severe sepsis on broad-spectrum antibiotics, possible right lower lobe pneumonia cannot be excluded less likely aspiration related as patient has a good gag flex GI bleed of unclear source status post blood transfusion Altered mental status and metabolic encephalopathy likely multifactorial related to renal failure Deep venous thrombosis of right lower extremity and possible pulmonary embolism 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 Severe pulmonary hypertension Biventricular failure with acute on chronic systolic heart failure Small bilateral pleural effusion more so on the right side compared to left side Acute blood loss anemia Plan: Anticoagulation currently is on hold because of ongoing bleeding and drop in hemoglobin, vascular surgery as well as GI services are following, status post endoscopy We will defer placement of IVC filter to vascular surgery Continue daily hemodialysis Blood transfusion as needed keep hemoglobin over 7 Optimize therapy for heart failure Monitor renal functions closely Further recommendations pending plan of care as per clinical response of the patient Bicarb drip low-dose to be reinitiated due to vasa spasm and cyanotic changes into the toes Taper levo fed drip as tolerated Continue BiPAP each night and when necessary in between nasal cannula, arterial blood gas performed this morning noted Haldol when necessary As per discussion with the it appears that altered mental status is not new and has been present for over a month, and as renal functions have been progressively getting worse patient's mental status was worsening with development of confusion. Patient however remains very awake respond appropriately with intermittent episodes of confusion when addressed directly long-term prognosis poor
[2018-11-10 19:11] LABS: Glucose,Whole Blood 155 mg/dL (75-99)
[2018-11-10] MEDS: PRAVASTATIN SODIUM 20 MG TAB PO SCH (20:31)
[2018-11-10] MEDS: MONTELUKAST 10 MG TAB PO SCH (20:31)
[2018-11-10 20:35] LABS: Glucose,Whole Blood 190 mg/dL (75-99)
[2018-11-10] MEDS: NOREPINEPHRINE 16 MG in SODIUM CHLORIDE 0.9% 250 ML IV SCH (20:52)
[2018-11-10] MEDS: INSULIN REGULAR 100 UNIT in SODIUM CHLORIDE 0.9% 100 ML IV SCH (20:56)
[2018-11-10] MEDS: ALBUTEROL NEBULIZED 2.5 MG/3 ML INHALATION PRN (21:31)
[2018-11-10 22:16] LABS: Glucose,Whole Blood 158 mg/dL (75-99)
--- NOTE | 2018-11-10 22:57 | PN ---
PROGRESS NOTE DATE OF SERVICE: 11/10/2018. REASON FOR FOLLOWUP: Aspiration pneumonia. INTERVAL HISTORY: The patient is currently afebrile. She is hemodynamically stable. Has been taken off pressor support. Patient was off the BiPAP when evaluated. Remains to be lethargic though. No significant chest pain. Occasional cough. Denies abdominal pain. No diarrhea. PHYSICAL EXAMINATION: Blood pressure 104/33, pulse of 72, temperature of 98. She is 96% on BiPAP. General description is a middle aged female lying in bed in no distress. HEENT examination: Pallor. No scleral icterus. Oral mucosa membranes are dry. LUNGS: Unlabored breathing with decreased breath sounds at the bases. No wheeze. Heart S1, S2. Regular rate and rhythm. Abdomen soft, no tenderness. LABS: Hemoglobin 7.6, white count 10.6, BUN of 44, creatinine 4.47. Blood culture has been negative so far. DIAGNOSTIC IMPRESSION AND PLAN: Patient with right-sided infiltrates. Patient did have acute respiratory distress by vent dependent. The patient, at this time, will continue with Zosyn and Rocephin. Follow clinical course closely and continue supportive care. MMODL / IJN: [id number] /
[2018-11-10 23:19] LABS: Glucose,Whole Blood 167 mg/dL (75-99)
[2018-11-11] MEDS ORDERED: DEXTROSE 5% IN WATER 100 ML with AMIODARONE 150 MG IV ONE (00:15)
--- NOTE | 2018-11-11 00:18 | PN ---
PROGRESS NOTE SUBJECTIVE: 58-year-old white female admitted with DVT, pulmonary embolism, right-sided pulmonary hypertension, systolic CHF. She is more responsive today. She is on the BiPAP at this time. She was given 1 unit of packed red blood cells. She is more arousable. She has respiratory acidosis. Metabolic acidosis. She is having dialysis today. Gastritis on the EGD with some possible ischemic changes, she is on BiPAP. She goes right back to sleep. Xanax was given. Cardiovascular: S1-S2. Lungs: Transmitted upper sounds. Hematology negative Homans. Respiratory rate is increased at 25-35. Pulse is 73, temp 97.6, sodium 135, potassium 5.2, BUN is 44, creatinine 4.47. ASSESSMENT: 1. Diabetes mellitus. 2. Severe anemia. 3. Acute on chronic renal failure, aneuric. 4. Severe sepsis. 5. Right lower lobe pneumonia, aspiration. 6. Gastrointestinal bleed. 7. Altered mental status. 8. Deep vein thrombosis. 9. Pulmonary embolism. 10.Chronic intermediate thromboembolism. 11.Severe pulmonary hypertension. 12.Small bilateral pleural effusion and acute blood loss anemia. One unit of blood has been given. Hemodialysis. Transfuse. Bicarb drip. Wean off Levophed. Continue BiPAP. She is very awake and appropriate at this time. She will need long-term dialysis as an outpatient most likely. ICU time 30 minutes. MMWILLIAML / ETHANN: [id number] /
[2018-11-11 00:44] LABS: Glucose,Whole Blood 166 mg/dL (75-99)
[2018-11-11] MEDS: AMIODARONE 450 MG in DEXTROSE 5% IN WATER 250 ML IV SCH ×6 (00:44→17:43)
[2018-11-11 01:53] LABS: Albumin 2.4 g/dL (3.5-5.0); Calcium 7.5 mg/dL (8.4-10.2); Magnesium 2.1 mg/dL (1.6-2.3); Potassium 4.4 mmol/L (3.5-5.1); Total Bilirubin 2.3 mg/dL (0.2-1.3); Total Protein 4.7 g/dL (6.3-8.2)
[2018-11-11 02:10] LABS: Glucose,Whole Blood 193 mg/dL (75-99)
[2018-11-11] MEDS: ALPRAZolam 0.5 MG TAB PO PRN (02:43)
[2018-11-11 03:36] LABS: Glucose,Whole Blood 152 mg/dL (75-99)
--- NOTE | 2018-11-11 04:36 | XR ---
EXAMINATION TYPE: XR chest 1V portable DATE OF EXAM: 11/11/2018 COMPARISON: Yesterday HISTORY: Tube placement TECHNIQUE: Single frontal view of the chest is obtained. FINDINGS: Endotracheal tube is approximate 5 cm from the nieves. Right jugular catheter has tip in t he superior vena cava. There is nasogastric tube in the stomach. There is blunting of right costophre diana angle. There is no gross heart failure. There are sternal wires. IMPRESSION: Right pleural effusion. No gross heart failure. Heart and lungs unchanged compared to yesterday.
[2018-11-11 05:23] LABS: Glucose,Whole Blood 148 mg/dL (75-99)
[2018-11-11 06:00] LABS: Glucose,Whole Blood 134 mg/dL (75-99)
[2018-11-11] MEDS: PROPOFOL 1,000 MG in EMPTY BAG 1 BAG IV SCH ×4 (06:08→18:16)
[2018-11-11 06:38] LABS: Albumin 2.4 g/dL (3.5-5.0); Calcium 7.4 mg/dL (8.4-10.2); Magnesium 2.2 mg/dL (1.6-2.3); Phosphorus 6.8 mg/dL (2.5-4.5); Potassium 4.8 mmol/L (3.5-5.1); Total Bilirubin 1.8 mg/dL (0.2-1.3); Total Protein 4.6 g/dL (6.3-8.2)
[2018-11-11 07:06] LABS: VBG PH 7.18 (7.31-7.41)
[2018-11-11 07:11] LABS: Glucose,Whole Blood 128 mg/dL (75-99)
[2018-11-11 07:19] LABS: Anisocytosis Slight; HCT 29.8 % (34.0-46.0); Hypochromasia Marked; MCH 30.1 pg (25.0-35.0); MCHC 30.4 g/dL (31.0-37.0); MCV 98.9 fL (80.0-100.0); Macrocytosis Slight; Mean Platelet Volume 7.3; Platelet Count 208 k/uL (150-450); Poikilocytosis Slight; RBC 3.01 m/uL (3.80-5.40); RDW 18.1 % (11.5-15.5)
[2018-11-11 07:33] LABS: HGB 9.1 gm/dL (11.4-16.0)
--- NOTE | 2018-11-11 07:58 | P.PN ---
Subjective Progress Note Date: 11/11/18 Principal diagnosis: CHF/cardiomyopathy This is a pleasant 58-year-old female patient with an extensive past medical history for her age consistent of coronary artery disease, peripheral arterial disease, diabetes, hypertension, dyslipidemia, and chronic kidney disease, was admitted to the hospital with chest discomfort and was ruled in for acute non- ST patient myocardial infarction and also with congestive heart failure secondary to systolic dysfunction. The patient was treated medically for the non-STEMI The echocardiogram revealed impaired LV function with EF of 35%, mild aortic stenosis, severe pulmonary hypertension, and moderate tricuspid regurgitation. On follow-up with the patient today, November [id number], she was in acute respiratory distress last night and she was intubated. Beside that she went into atrial fibrillation with RVR. She continues to be hemodynamically unstable into of blood pressure and she still on nor epinephrine. I am going to start the patient on amiodarone IV at this point. Beside that I will obtain a PT and PTT to assess before we decided to start her on anticoagulation with heparin. The patient might be self anticoagulated herself in view of her liver issues. Overall the prognosis is very poor. Objective - Vital Signs Vital signs: Vital Signs Temp 97.7 F 11/10/18 20:00 Pulse 78 11/10/18 21:53 Resp 32 H 11/10/18 21:30 BP 110/35 11/10/18 21:30 Pulse Ox 93 L 11/10/18 21:30 Intake & Output 11/10/18 11/11/18 11/11/18 18:59 06:59 18:59 Intake Total 1016.451 849.226 Output Total 7 1 Balance 1009.451 848.226 Weight 116 kg 118 kg Intake: IV 650 150 Desmopressin Acetate 35 50 mcg In Sodium Chloride 0. 9% 50 ml @ 200 mls/hr IVPB ONCE ONE Rx#: [id number] Dextrose 5% in Water 1, 50 150 000 ml @ 50 mls/hr IV . Q22H [facility] with Sodium Bicarb (1 Meq/ml) 100 ml Rx#:[id number] Sodium Chloride 0.9% 1, 550 000 ml @ 50 mls/hr IV . Q20H [facility] Rx#:[id number] Intake, IV Titration 6.451 199.226 Amount Insulin Regular 100 unit 6.451 9.578 In Sodium Chloride 0.9% 100 ml @ Per Protocol IV .Q0M [facility] Rx#:[id number] Norepinephrine 16 mg In 189.648 Sodium Chloride 0.9% 250 ml @ Titrate IV .Q0M [facility] Rx#:[id number] Oral 50 500 Blood Product 310 Rc As-1 Unit 310 [id number] Output: Urine 5 0 Stool 2 1 Other: Voiding Method Indwelling Catheter Indwelling Catheter # Voids 0 - Constitutional General appearance: Present: no acute distress - Respiratory Respiratory: bilateral: diminished - Cardiovascular Rhythm: irregularly irregular Heart sounds: normal: S1, S2 - Labs CBC & Chem 7: 11/11/18 05:21 11/11/18 05:21 Labs: Abnormal Lab Results - Last 24 Hours (Table) 11/08/18 11/10/18 11/10/18 Range/Units 05:41 07:50 08:59 WBC (3.8-10.6) k/uL RBC (3.80-5.40) m/uL Hgb (11.4-16.0) gm/dL Hct (34.0-46.0) % MCHC (31.0-37.0) g/dL RDW (11.5-15.5) % VBG pH (7.31-7.41) VBG pCO2 (37-51) mmHg VBG HCO3 (24-28) mmol/L Sodium (137-145) mmol/L BUN (7-17) mg/dL Creatinine (0.52-1.04) mg/dL Glucose (74-99) mg/dL POC Glucose (mg/dL) 180 H 171 H (75-99) mg/dL Calcium (8.4-10.2) mg/dL Phosphorus (2.5-4.5) mg/dL Total Bilirubin (0.2-1.3) mg/dL AST (14-36) U/L ALT (9-52) U/L Alkaline Phosphatase (38-126) U/L Total Protein (6.3-8.2) g/dL Albumin (3.5-5.0) g/dL Crossmatch See Detail 11/10/18 11/10/18 11/10/18 Range/Units 10:00 11:01 11:06 WBC (3.8-10.6) k/uL RBC (3.80-5.40) m/uL Hgb (11.4-16.0) gm/dL Hct (34.0-46.0) % MCHC (31.0-37.0) g/dL RDW (11.5-15.5) % VBG pH 7.21 L (7.31-7.41) VBG pCO2 61 H (37-51) mmHg VBG HCO3 23 L (24-28) mmol/L Sodium (137-145) mmol/L BUN (7-17) mg/dL Creatinine (0.52-1.04) mg/dL Glucose (74-99) mg/dL POC Glucose (mg/dL) 152 H 152 H (75-99) mg/dL Calcium (8.4-10.2) mg/dL Phosphorus (2.5-4.5) mg/dL Total Bilirubin (0.2-1.3) mg/dL AST (14-36) U/L ALT (9-52) U/L Alkaline Phosphatase (38-126) U/L Total Protein (6.3-8.2) g/dL Albumin (3.5-5.0) g/dL Crossmatch 11/10/18 11/10/18 11/10/18 Range/Units 12:06 14:08 15:02 WBC (3.8-10.6) k/uL RBC (3.80-5.40) m/uL Hgb (11.4-16.0) gm/dL Hct (34.0-46.0) % MCHC (31.0-37.0) g/dL RDW (11.5-15.5) % VBG pH (7.31-7.41) VBG pCO2 (37-51) mmHg VBG HCO3 (24-28) mmol/L Sodium (137-145) mmol/L BUN (7-17) mg/dL Creatinine (0.52-1.04) mg/dL Glucose (74-99) mg/dL POC Glucose (mg/dL) 136 H 137 H 133 H (75-99) mg/dL Calcium (8.4-10.2) mg/dL Phosphorus (2.5-4.5) mg/dL Total Bilirubin (0.2-1.3) mg/dL AST (14-36) U/L ALT (9-52) U/L Alkaline Phosphatase (38-126) U/L Total Protein (6.3-8.2) g/dL Albumin (3.5-5.0) g/dL Crossmatch 11/10/18 11/10/18 11/10/18 Range/Units 16:00 17:02 19:00 WBC (3.8-10.6) k/uL RBC (3.80-5.40) m/uL Hgb (11.4-16.0) gm/dL Hct (34.0-46.0) % MCHC (31.0-37.0) g/dL RDW (11.5-15.5) % VBG pH (7.31-7.41) VBG pCO2 (37-51) mmHg VBG HCO3 (24-28) mmol/L Sodium (137-145) mmol/L BUN (7-17) mg/dL Creatinine (0.52-1.04) mg/dL Glucose (74-99) mg/dL POC Glucose (mg/dL) 124 H 136 H 155 H (75-99) mg/dL Calcium (8.4-10.2) mg/dL Phosphorus (2.5-4.5) mg/dL Total Bilirubin (0.2-1.3) mg/dL AST (14-36) U/L ALT (9-52) U/L Alkaline Phosphatase (38-126) U/L Total Protein (6.3-8.2) g/dL Albumin (3.5-5.0) g/dL Crossmatch 11/10/18 11/10/18 11/10/18 Range/Units 20:24 22:04 23:08 WBC (3.8-10.6) k/uL RBC (3.80-5.40) m/uL Hgb (11.4-16.0) gm/dL Hct (34.0-46.0) % MCHC (31.0-37.0) g/dL RDW (11.5-15.5) % VBG pH (7.31-7.41) VBG pCO2 (37-51) mmHg VBG HCO3 (24-28) mmol/L Sodium (137-145) mmol/L BUN (7-17) mg/dL Creatinine (0.52-1.04) mg/dL Glucose (74-99) mg/dL POC Glucose (mg/dL) 190 H 158 H 167 H (75-99) mg/dL Calcium (8.4-10.2) mg/dL Phosphorus (2.5-4.5) mg/dL Total Bilirubin (0.2-1.3) mg/dL AST (14-36) U/L ALT (9-52) U/L Alkaline Phosphatase (38-126) U/L Total Protein (6.3-8.2) g/dL Albumin (3.5-5.0) g/dL Crossmatch 11/11/18 11/11/18 11/11/18 Range/Units 00:32 01:03 01:59 WBC (3.8-10.6) k/uL RBC (3.80-5.40) m/uL Hgb (11.4-16.0) gm/dL Hct (34.0-46.0) % MCHC (31.0-37.0) g/dL RDW (11.5-15.5) % VBG pH (7.31-7.41) VBG pCO2 (37-51) mmHg VBG HCO3 (24-28) mmol/L Sodium 135 L (137-145) mmol/L BUN 40 H (7-17) mg/dL Creatinine 4.05 H (0.52-1.04) mg/dL Glucose 186 H (74-99) mg/dL POC Glucose (mg/dL) 166 H 193 H (75-99) mg/dL Calcium 7.5 L (8.4-10.2) mg/dL Phosphorus (2.5-4.5) mg/dL Total Bilirubin 2.3 H (0.2-1.3) mg/dL AST 2527 H (14-36) U/L ALT 1993 H (9-52) U/L Alkaline Phosphatase 161 H (38-126) U/L Total Protein 4.7 L (6.3-8.2) g/dL Albumin 2.4 L (3.5-5.0) g/dL Crossmatch 11/11/18 11/11/18 11/11/18 Range/Units 03:24 05:11 05:21 WBC 18.4 H (3.8-10.6) k/uL RBC 3.01 L (3.80-5.40) m/uL Hgb 9.1 L D (11.4-16.0) gm/dL Hct 29.8 L (34.0-46.0) % MCHC 30.4 L (31.0-37.0) g/dL RDW 18.1 H (11.5-15.5) % VBG pH (7.31-7.41) VBG pCO2 (37-51) mmHg VBG HCO3 (24-28) mmol/L Sodium (137-145) mmol/L BUN (7-17) mg/dL Creatinine (0.52-1.04) mg/dL Glucose (74-99) mg/dL POC Glucose (mg/dL) 152 H 148 H (75-99) mg/dL Calcium (8.4-10.2) mg/dL Phosphorus (2.5-4.5) mg/dL Total Bilirubin (0.2-1.3) mg/dL AST (14-36) U/L ALT (9-52) U/L Alkaline Phosphatase (38-126) U/L Total Protein (6.3-8.2) g/dL Albumin (3.5-5.0) g/dL Crossmatch 11/11/18 11/11/18 11/11/18 Range/Units 05:21 05:21 05:50 WBC (3.8-10.6) k/uL RBC (3.80-5.40) m/uL Hgb (11.4-16.0) gm/dL Hct (34.0-46.0) % MCHC (31.0-37.0) g/dL RDW (11.5-15.5) % VBG pH 7.18 L* (7.31-7.41) VBG pCO2 59 H (37-51) mmHg VBG HCO3 22 L (24-28) mmol/L Sodium 134 L (137-145) mmol/L BUN 44 H (7-17) mg/dL Creatinine 4.33 H (0.52-1.04) mg/dL Glucose 230 H (74-99) mg/dL POC Glucose (mg/dL) 134 H (75-99) mg/dL Calcium 7.4 L (8.4-10.2) mg/dL Phosphorus 6.8 H (2.5-4.5) mg/dL Total Bilirubin 1.8 H (0.2-1.3) mg/dL AST 2896 H (14-36) U/L ALT 2223 H (9-52) U/L Alkaline Phosphatase 148 H (38-126) U/L Total Protein 4.6 L (6.3-8.2) g/dL Albumin 2.4 L (3.5-5.0) g/dL Crossmatch 11/11/18 Range/Units 06:59 WBC (3.8-10.6) k/uL RBC (3.80-5.40) m/uL Hgb (11.4-16.0) gm/dL Hct (34.0-46.0) % MCHC (31.0-37.0) g/dL RDW (11.5-15.5) % VBG pH (7.31-7.41) VBG pCO2 (37-51) mmHg VBG HCO3 (24-28) mmol/L Sodium (137-145) mmol/L BUN (7-17) mg/dL Creatinine (0.52-1.04) mg/dL Glucose (74-99) mg/dL POC Glucose (mg/dL) 128 H (75-99) mg/dL Calcium (8.4-10.2) mg/dL Phosphorus (2.5-4.5) mg/dL Total Bilirubin (0.2-1.3) mg/dL AST (14-36) U/L ALT (9-52) U/L Alkaline Phosphatase (38-126) U/L Total Protein (6.3-8.2) g/dL Albumin (3.5-5.0) g/dL Crossmatch Microbiology - Last 24 Hours (Table) 11/07/18 00:04 Blood Culture - Preliminary Blood No Growth after 96 hours Assessment and Plan Assessment: Assessment #1 systolic congestive heart failure exacerbation #2 acute non-ST elevation myocardial infarction #3 acute on chronic renal failure #4 peripheral vascular disease #5 systemic hypertension #6 hyperkalemia Plan #1 the patient is on dialysis now #2 the right wean the patient from the vasopressors #3 started the patient on amiodarone IV
[2018-11-11 07:59] LABS: INR 1.3 (<1.2); Prothrombin Time 13.1 sec (9.0-12.0)
[2018-11-11] MEDS: ALBUTEROL NEBULIZED 2.5 MG/3 ML INHALATION PRN ×3 (07:59→16:23)
--- NOTE | 2018-11-11 08:20 | P.PN ---
Subjective Patient is seen in follow-up for acute kidney injury on chronic kidney disease. Patient has chronic kidney disease stage IV with baseline creatinine near 3 secondary to diabetic kidney disease. Due to worsening renal function and oliguria, she was started on hemodialysis on November 07. She was intubated last night. Currently on 24 mics of Levophed. Remains oliguric. No active bleeding. Hemoglobin improved to 9.1. Currently on amiodarone drip for A. fib with RVR. Afebrile. Currently on vasopressors. General: The patient appeared well nourished and normally developed. HEENT: Head exam is unremarkable. Neck is without jugular venous distension. Intubated. LUNGS: Breath sounds decreased. HEART: Rate and Rhythm are regular. First and second heart sounds normal. No murmurs, rubs or gallops. ABDOMEN: Abdominal exam reveals normal bowel sounds. Non-tender and non- distended. No evidence of peritonitis. EXTREMITITES: Trace edema. Objective - Vital Signs Vital signs: Vital Signs Temp 97.7 F 11/10/18 20:00 Pulse 113 H 11/11/18 08:02 Resp 32 H 11/10/18 21:30 BP 110/35 11/10/18 21:30 Pulse Ox 93 L 11/10/18 21:30 Intake & Output 11/10/18 11/11/18 11/11/18 18:59 06:59 18:59 Intake Total 1016.451 849.226 50 Output Total 7 1 0 Balance 1009.451 848.226 50 Weight 116 kg 118 kg Intake: IV 650 150 50 0.9 NACL 50 Desmopressin Acetate 35 50 mcg In Sodium Chloride 0. 9% 50 ml @ 200 mls/hr IVPB ONCE ONE Rx#: [id number] Dextrose 5% in Water 1, 50 150 000 ml @ 50 mls/hr IV . Q22H [facility] with Sodium Bicarb (1 Meq/ml) 100 ml Rx#:[id number] Sodium Chloride 0.9% 1, 550 000 ml @ 50 mls/hr IV . Q20H [facility] Rx#:[id number] Intake, IV Titration 6.451 199.226 Amount Insulin Regular 100 unit 6.451 9.578 In Sodium Chloride 0.9% 100 ml @ Per Protocol IV .Q0M [facility] Rx#:[id number] Norepinephrine 16 mg In 189.648 Sodium Chloride 0.9% 250 ml @ Titrate IV .Q0M [facility] Rx#:[id number] Oral 50 500 Blood Product 310 Rc As-1 Unit 310 [id number] Output: Urine 5 0 0 Stool 2 1 Other: Voiding Method Indwelling Catheter Indwelling Catheter # Voids 0 - Labs CBC & Chem 7: 11/11/18 05:21 11/11/18 05:21 Labs: Abnormal Lab Results - Last 24 Hours (Table) 11/08/18 11/10/18 11/10/18 Range/Units 05:41 08:59 10:00 WBC (3.8-10.6) k/uL RBC (3.80-5.40) m/uL Hgb (11.4-16.0) gm/dL Hct (34.0-46.0) % MCHC (31.0-37.0) g/dL RDW (11.5-15.5) % PT (9.0-12.0) sec INR (<1.2) VBG pH (7.31-7.41) VBG pCO2 (37-51) mmHg VBG HCO3 (24-28) mmol/L Sodium (137-145) mmol/L BUN (7-17) mg/dL Creatinine (0.52-1.04) mg/dL Glucose (74-99) mg/dL POC Glucose (mg/dL) 171 H 152 H (75-99) mg/dL Calcium (8.4-10.2) mg/dL Phosphorus (2.5-4.5) mg/dL Total Bilirubin (0.2-1.3) mg/dL AST (14-36) U/L ALT (9-52) U/L Alkaline Phosphatase (38-126) U/L Total Protein (6.3-8.2) g/dL Albumin (3.5-5.0) g/dL Crossmatch See Detail 11/10/18 11/10/18 11/10/18 Range/Units 11:01 11:06 12:06 WBC (3.8-10.6) k/uL RBC (3.80-5.40) m/uL Hgb (11.4-16.0) gm/dL Hct (34.0-46.0) % MCHC (31.0-37.0) g/dL RDW (11.5-15.5) % PT (9.0-12.0) sec INR (<1.2) VBG pH 7.21 L (7.31-7.41) VBG pCO2 61 H (37-51) mmHg VBG HCO3 23 L (24-28) mmol/L Sodium (137-145) mmol/L BUN (7-17) mg/dL Creatinine (0.52-1.04) mg/dL Glucose (74-99) mg/dL POC Glucose (mg/dL) 152 H 136 H (75-99) mg/dL Calcium (8.4-10.2) mg/dL Phosphorus (2.5-4.5) mg/dL Total Bilirubin (0.2-1.3) mg/dL AST (14-36) U/L ALT (9-52) U/L Alkaline Phosphatase (38-126) U/L Total Protein (6.3-8.2) g/dL Albumin (3.5-5.0) g/dL Crossmatch 11/10/18 11/10/18 11/10/18 Range/Units 14:08 15:02 16:00 WBC (3.8-10.6) k/uL RBC (3.80-5.40) m/uL Hgb (11.4-16.0) gm/dL Hct (34.0-46.0) % MCHC (31.0-37.0) g/dL RDW (11.5-15.5) % PT (9.0-12.0) sec INR (<1.2) VBG pH (7.31-7.41) VBG pCO2 (37-51) mmHg VBG HCO3 (24-28) mmol/L Sodium (137-145) mmol/L BUN (7-17) mg/dL Creatinine (0.52-1.04) mg/dL Glucose (74-99) mg/dL POC Glucose (mg/dL) 137 H 133 H 124 H (75-99) mg/dL Calcium (8.4-10.2) mg/dL Phosphorus (2.5-4.5) mg/dL Total Bilirubin (0.2-1.3) mg/dL AST (14-36) U/L ALT (9-52) U/L Alkaline Phosphatase (38-126) U/L Total Protein (6.3-8.2) g/dL Albumin (3.5-5.0) g/dL Crossmatch 11/10/18 11/10/18 11/10/18 Range/Units 17:02 19:00 20:24 WBC (3.8-10.6) k/uL RBC (3.80-5.40) m/uL Hgb (11.4-16.0) gm/dL Hct (34.0-46.0) % MCHC (31.0-37.0) g/dL RDW (11.5-15.5) % PT (9.0-12.0) sec INR (<1.2) VBG pH (7.31-7.41) VBG pCO2 (37-51) mmHg VBG HCO3 (24-28) mmol/L Sodium (137-145) mmol/L BUN (7-17) mg/dL Creatinine (0.52-1.04) mg/dL Glucose (74-99) mg/dL POC Glucose (mg/dL) 136 H 155 H 190 H (75-99) mg/dL Calcium (8.4-10.2) mg/dL Phosphorus (2.5-4.5) mg/dL Total Bilirubin (0.2-1.3) mg/dL AST (14-36) U/L ALT (9-52) U/L Alkaline Phosphatase (38-126) U/L Total Protein (6.3-8.2) g/dL Albumin (3.5-5.0) g/dL Crossmatch 11/10/18 11/10/18 11/11/18 Range/Units 22:04 23:08 00:32 WBC (3.8-10.6) k/uL RBC (3.80-5.40) m/uL Hgb (11.4-16.0) gm/dL Hct (34.0-46.0) % MCHC (31.0-37.0) g/dL RDW (11.5-15.5) % PT (9.0-12.0) sec INR (<1.2) VBG pH (7.31-7.41) VBG pCO2 (37-51) mmHg VBG HCO3 (24-28) mmol/L Sodium (137-145) mmol/L BUN (7-17) mg/dL Creatinine (0.52-1.04) mg/dL Glucose (74-99) mg/dL POC Glucose (mg/dL) 158 H 167 H 166 H (75-99) mg/dL Calcium (8.4-10.2) mg/dL Phosphorus (2.5-4.5) mg/dL Total Bilirubin (0.2-1.3) mg/dL AST (14-36) U/L ALT (9-52) U/L Alkaline Phosphatase (38-126) U/L Total Protein (6.3-8.2) g/dL Albumin (3.5-5.0) g/dL Crossmatch 11/11/18 11/11/18 11/11/18 Range/Units 01:03 01:59 03:24 WBC (3.8-10.6) k/uL RBC (3.80-5.40) m/uL Hgb (11.4-16.0) gm/dL Hct (34.0-46.0) % MCHC (31.0-37.0) g/dL RDW (11.5-15.5) % PT (9.0-12.0) sec INR (<1.2) VBG pH (7.31-7.41) VBG pCO2 (37-51) mmHg VBG HCO3 (24-28) mmol/L Sodium 135 L (137-145) mmol/L BUN 40 H (7-17) mg/dL Creatinine 4.05 H (0.52-1.04) mg/dL Glucose 186 H (74-99) mg/dL POC Glucose (mg/dL) 193 H 152 H (75-99) mg/dL Calcium 7.5 L (8.4-10.2) mg/dL Phosphorus (2.5-4.5) mg/dL Total Bilirubin 2.3 H (0.2-1.3) mg/dL AST 2527 H (14-36) U/L ALT 1993 H (9-52) U/L Alkaline Phosphatase 161 H (38-126) U/L Total Protein 4.7 L (6.3-8.2) g/dL Albumin 2.4 L (3.5-5.0) g/dL Crossmatch 11/11/18 11/11/18 11/11/18 Range/Units 05:11 05:20 05:21 WBC 18.4 H (3.8-10.6) k/uL RBC 3.01 L (3.80-5.40) m/uL Hgb 9.1 L D (11.4-16.0) gm/dL Hct 29.8 L (34.0-46.0) % MCHC 30.4 L (31.0-37.0) g/dL RDW 18.1 H (11.5-15.5) % PT 13.1 H (9.0-12.0) sec INR 1.3 H (<1.2) VBG pH (7.31-7.41) VBG pCO2 (37-51) mmHg VBG HCO3 (24-28) mmol/L Sodium (137-145) mmol/L BUN (7-17) mg/dL Creatinine (0.52-1.04) mg/dL Glucose (74-99) mg/dL POC Glucose (mg/dL) 148 H (75-99) mg/dL Calcium (8.4-10.2) mg/dL Phosphorus (2.5-4.5) mg/dL Total Bilirubin (0.2-1.3) mg/dL AST (14-36) U/L ALT (9-52) U/L Alkaline Phosphatase (38-126) U/L Total Protein (6.3-8.2) g/dL Albumin (3.5-5.0) g/dL Crossmatch 11/11/18 11/11/18 11/11/18 Range/Units 05:21 05:21 05:50 WBC (3.8-10.6) k/uL RBC (3.80-5.40) m/uL Hgb (11.4-16.0) gm/dL Hct (34.0-46.0) % MCHC (31.0-37.0) g/dL RDW (11.5-15.5) % PT (9.0-12.0) sec INR (<1.2) VBG pH 7.18 L* (7.31-7.41) VBG pCO2 59 H (37-51) mmHg VBG HCO3 22 L (24-28) mmol/L Sodium 134 L (137-145) mmol/L BUN 44 H (7-17) mg/dL Creatinine 4.33 H (0.52-1.04) mg/dL Glucose 230 H (74-99) mg/dL POC Glucose (mg/dL) 134 H (75-99) mg/dL Calcium 7.4 L (8.4-10.2) mg/dL Phosphorus 6.8 H (2.5-4.5) mg/dL Total Bilirubin 1.8 H (0.2-1.3) mg/dL AST 2896 H (14-36) U/L ALT 2223 H (9-52) U/L Alkaline Phosphatase 148 H (38-126) U/L Total Protein 4.6 L (6.3-8.2) g/dL Albumin 2.4 L (3.5-5.0) g/dL Crossmatch 11/11/18 Range/Units 06:59 WBC (3.8-10.6) k/uL RBC (3.80-5.40) m/uL Hgb (11.4-16.0) gm/dL Hct (34.0-46.0) % MCHC (31.0-37.0) g/dL RDW (11.5-15.5) % PT (9.0-12.0) sec INR (<1.2) VBG pH (7.31-7.41) VBG pCO2 (37-51) mmHg VBG HCO3 (24-28) mmol/L Sodium (137-145) mmol/L BUN (7-17) mg/dL Creatinine (0.52-1.04) mg/dL Glucose (74-99) mg/dL POC Glucose (mg/dL) 128 H (75-99) mg/dL Calcium (8.4-10.2) mg/dL Phosphorus (2.5-4.5) mg/dL Total Bilirubin (0.2-1.3) mg/dL AST (14-36) U/L ALT (9-52) U/L Alkaline Phosphatase (38-126) U/L Total Protein (6.3-8.2) g/dL Albumin (3.5-5.0) g/dL Crossmatch Microbiology - Last 24 Hours (Table) 11/07/18 00:04 Blood Culture - Preliminary Blood No Growth after 96 hours Assessment and Plan Plan: Assessment: 1. Acute kidney injury secondary to ATN secondary to hypotension. Creatinine peaked at 5.85 and November 07 and was also oliguric. Currently hemodialysis dependent. No hydronephrosis noted on renal ultrasound. She was undergoing hemodialysis daily this week. 2. Chronic kidney disease stage IV secondary to diabetic kidney disease and nephrosclerosis with baseline creatinine near 3 according to the patient. Patient follows with a behavioral specialist out of [place]. 3. Systolic CHF with ejection fraction of 30-35% with severe pulmonary hypertension and moderate tricuspid regurgitation. 4. Volume overload. Better. 5. Hypervolemic hyponatremia. Stable. 6. Hyperkalemia secondary to acute kidney injury. resolved. 7. Diabetes mellitus. 8. Hypotension maintained on 24 mics of Levophed. 9. Hyperphosphatemia secondary to acute kidney injury. Maintained on PhosLo. Improving. 10. Acute blood loss anemia secondary to GI bleed. Status post blood transfusion and IV DDAVP on November 10. Status post EGD on November 10 which revealed ischemic areas in the antrum. 11. NSTEMI. Cardiology following. 12. A. fib with RVR maintained on amiodarone drip. Plan: Hold off on hemodialysis today due to hemodynamic instability. Wean Levophed. Continue to monitor renal function and urine output. Assess on day-to-day basis for need for renal replacement therapy.
[2018-11-11 08:26] LABS: Band Neutrophils % 12 %; Lymphocytes # (M) 0.53 k/uL (1.0-4.8); Metamyelocytes # (M) 0.18 k/uL (0); Metamyelocytes % 1 %; Monocytes # (M) 0.71 k/uL (0-1.0); Neutrophils % (M) 82 %; Nucleated Red Blood Cells 4 /100 WBC (0-0); Total Cells Counted 200; WBC 17.7 k/uL (3.8-10.6)
[2018-11-11 08:29] LABS: Polychromasia Present
[2018-11-11] MEDS: SODIUM CHLORIDE 0.9% 1,000 ML IV SCH (08:30)
[2018-11-11 08:41] LABS: Glucose,Whole Blood 113 mg/dL (75-99)
[2018-11-11] MEDS: PIPERACILLIN-TAZOBACTAM 3.375 GM in SODIUM CHLORIDE 0.9% 100 ML IVPB SCH ×2 (08:52→22:08)
[2018-11-11] MEDS: FERROUS SULFATE 325 MG TAB PO SCH (08:59)
[2018-11-11] MEDS: PANTOPRAZOLE 40 MG/10 ML VIAL IV SCH ×2 (09:00→22:09)
[2018-11-11] MEDS: NICOTINE 21MG/24HR PATCH TRANSDERM SCH (09:01)
[2018-11-11] MEDS: CHLORHEXIDINE GLUCONATE 15 ML CUP MUCOUS MEM SCH ×2 (09:01→22:10)
--- NOTE | 2018-11-11 10:38 | P.PN ---
Subjective Progress Note Date: 11/11/18 Principal diagnosis: GI bleed melena Status post EGD yesterday for evaluation of melena when receiving IV heparin. Intubated. Areas of focal pallor in antrum suggestive of ischemia biopsies taken. White count increased today 18.4. Hemoglobin 9.1. Platelet 208. Total bilirubin 1.8. AST 2896. ALT 2223. AP 148. Hepatitis screen nonreactive. Blood pressures labile. Increase IV pressors. Passing dark black BMs. Objective - Vital Signs Vital signs: Vital Signs Temp 97.7 F 11/10/18 20:00 Pulse 78 11/10/18 21:53 Resp 32 H 11/10/18 21:30 BP 110/35 11/10/18 21:30 Pulse Ox 93 L 11/10/18 21:30 Intake & Output 11/10/18 11/11/18 11/11/18 18:59 06:59 18:59 Intake Total 1016.451 849.226 Output Total 7 1 Balance 1009.451 848.226 Weight 116 kg 118 kg Intake: IV 650 150 Desmopressin Acetate 35 50 mcg In Sodium Chloride 0. 9% 50 ml @ 200 mls/hr IVPB ONCE ONE Rx#: [id number] Dextrose 5% in Water 1, 50 150 000 ml @ 50 mls/hr IV . Q22H LAMAR with Sodium Bicarb (1 Meq/ml) 100 ml Rx#:[id number] Sodium Chloride 0.9% 1, 550 000 ml @ 50 mls/hr IV . Q20H LAMAR Rx#:[id number] Intake, IV Titration 6.451 199.226 Amount Insulin Regular 100 unit 6.451 9.578 In Sodium Chloride 0.9% 100 ml @ Per Protocol IV .Q0M LAMAR Rx#:[id number] Norepinephrine 16 mg In 189.648 Sodium Chloride 0.9% 250 ml @ Titrate IV .Q0M LAMAR Rx#:[id number] Oral 50 500 Blood Product 310 Rc As-1 Unit 310 [id number] Output: Urine 5 0 Stool 2 1 Other: Voiding Method Indwelling Catheter Indwelling Catheter # Voids 0 - Exam General appearance: The patient is intubated. HET: Head is normocephalic and atraumatic. Pupils are equal and reactive. Oropharynx is clear without lesions. Neck: Supple without lymphadenopathy. Trachea midline. Endotracheal tube intact. Heart: S1 S2. Regular rate and rhythm. Lungs: No crackles or wheezes are heard. Abdomen: Soft, nontender, nondistended with bowel sounds. No peritoneal signs. No palpable organomegaly or masses. Extremities: Cyanotic toes bilateral feet. Neurological: Not able to follow commands. Intubated. - Labs CBC & Chem 7: 11/11/18 05:21 11/11/18 05:21 Labs: Abnormal Lab Results - Last 24 Hours (Table) 11/08/18 11/10/18 11/10/18 Range/Units 05:41 07:50 08:59 WBC (3.8-10.6) k/uL RBC (3.80-5.40) m/uL Hgb (11.4-16.0) gm/dL Hct (34.0-46.0) % MCHC (31.0-37.0) g/dL RDW (11.5-15.5) % VBG pH (7.31-7.41) VBG pCO2 (37-51) mmHg VBG HCO3 (24-28) mmol/L Sodium (137-145) mmol/L BUN (7-17) mg/dL Creatinine (0.52-1.04) mg/dL Glucose (74-99) mg/dL POC Glucose (mg/dL) 180 H 171 H (75-99) mg/dL Calcium (8.4-10.2) mg/dL Phosphorus (2.5-4.5) mg/dL Total Bilirubin (0.2-1.3) mg/dL AST (14-36) U/L ALT (9-52) U/L Alkaline Phosphatase (38-126) U/L Total Protein (6.3-8.2) g/dL Albumin (3.5-5.0) g/dL Crossmatch See Detail 11/10/18 11/10/18 11/10/18 Range/Units 10:00 11:01 11:06 WBC (3.8-10.6) k/uL RBC (3.80-5.40) m/uL Hgb (11.4-16.0) gm/dL Hct (34.0-46.0) % MCHC (31.0-37.0) g/dL RDW (11.5-15.5) % VBG pH 7.21 L (7.31-7.41) VBG pCO2 61 H (37-51) mmHg VBG HCO3 23 L (24-28) mmol/L Sodium (137-145) mmol/L BUN (7-17) mg/dL Creatinine (0.52-1.04) mg/dL Glucose (74-99) mg/dL POC Glucose (mg/dL) 152 H 152 H (75-99) mg/dL Calcium (8.4-10.2) mg/dL Phosphorus (2.5-4.5) mg/dL Total Bilirubin (0.2-1.3) mg/dL AST (14-36) U/L ALT (9-52) U/L Alkaline Phosphatase (38-126) U/L Total Protein (6.3-8.2) g/dL Albumin (3.5-5.0) g/dL Crossmatch 11/10/18 11/10/18 11/10/18 Range/Units 12:06 14:08 15:02 WBC (3.8-10.6) k/uL RBC (3.80-5.40) m/uL Hgb (11.4-16.0) gm/dL Hct (34.0-46.0) % MCHC (31.0-37.0) g/dL RDW (11.5-15.5) % VBG pH (7.31-7.41) VBG pCO2 (37-51) mmHg VBG HCO3 (24-28) mmol/L Sodium (137-145) mmol/L BUN (7-17) mg/dL Creatinine (0.52-1.04) mg/dL Glucose (74-99) mg/dL POC Glucose (mg/dL) 136 H 137 H 133 H (75-99) mg/dL Calcium (8.4-10.2) mg/dL Phosphorus (2.5-4.5) mg/dL Total Bilirubin (0.2-1.3) mg/dL AST (14-36) U/L ALT (9-52) U/L Alkaline Phosphatase (38-126) U/L Total Protein (6.3-8.2) g/dL Albumin (3.5-5.0) g/dL Crossmatch 11/10/18 11/10/18 11/10/18 Range/Units 16:00 17:02 19:00 WBC (3.8-10.6) k/uL RBC (3.80-5.40) m/uL Hgb (11.4-16.0) gm/dL Hct (34.0-46.0) % MCHC (31.0-37.0) g/dL RDW (11.5-15.5) % VBG pH (7.31-7.41) VBG pCO2 (37-51) mmHg VBG HCO3 (24-28) mmol/L Sodium (137-145) mmol/L BUN (7-17) mg/dL Creatinine (0.52-1.04) mg/dL Glucose (74-99) mg/dL POC Glucose (mg/dL) 124 H 136 H 155 H (75-99) mg/dL Calcium (8.4-10.2) mg/dL Phosphorus (2.5-4.5) mg/dL Total Bilirubin (0.2-1.3) mg/dL AST (14-36) U/L ALT (9-52) U/L Alkaline Phosphatase (38-126) U/L Total Protein (6.3-8.2) g/dL Albumin (3.5-5.0) g/dL Crossmatch 11/10/18 11/10/18 11/10/18 Range/Units 20:24 22:04 23:08 WBC (3.8-10.6) k/uL RBC (3.80-5.40) m/uL Hgb (11.4-16.0) gm/dL Hct (34.0-46.0) % MCHC (31.0-37.0) g/dL RDW (11.5-15.5) % VBG pH (7.31-7.41) VBG pCO2 (37-51) mmHg VBG HCO3 (24-28) mmol/L Sodium (137-145) mmol/L BUN (7-17) mg/dL Creatinine (0.52-1.04) mg/dL Glucose (74-99) mg/dL POC Glucose (mg/dL) 190 H 158 H 167 H (75-99) mg/dL Calcium (8.4-10.2) mg/dL Phosphorus (2.5-4.5) mg/dL Total Bilirubin (0.2-1.3) mg/dL AST (14-36) U/L ALT (9-52) U/L Alkaline Phosphatase (38-126) U/L Total Protein (6.3-8.2) g/dL Albumin (3.5-5.0) g/dL Crossmatch 11/11/18 11/11/18 11/11/18 Range/Units 00:32 01:03 01:59 WBC (3.8-10.6) k/uL RBC (3.80-5.40) m/uL Hgb (11.4-16.0) gm/dL Hct (34.0-46.0) % MCHC (31.0-37.0) g/dL RDW (11.5-15.5) % VBG pH (7.31-7.41) VBG pCO2 (37-51) mmHg VBG HCO3 (24-28) mmol/L Sodium 135 L (137-145) mmol/L BUN 40 H (7-17) mg/dL Creatinine 4.05 H (0.52-1.04) mg/dL Glucose 186 H (74-99) mg/dL POC Glucose (mg/dL) 166 H 193 H (75-99) mg/dL Calcium 7.5 L (8.4-10.2) mg/dL Phosphorus (2.5-4.5) mg/dL Total Bilirubin 2.3 H (0.2-1.3) mg/dL AST 2527 H (14-36) U/L ALT 1993 H (9-52) U/L Alkaline Phosphatase 161 H (38-126) U/L Total Protein 4.7 L (6.3-8.2) g/dL Albumin 2.4 L (3.5-5.0) g/dL Crossmatch 11/11/18 11/11/18 11/11/18 Range/Units 03:24 05:11 05:21 WBC 18.4 H (3.8-10.6) k/uL RBC 3.01 L (3.80-5.40) m/uL Hgb 9.1 L D (11.4-16.0) gm/dL Hct 29.8 L (34.0-46.0) % MCHC 30.4 L (31.0-37.0) g/dL RDW 18.1 H (11.5-15.5) % VBG pH (7.31-7.41) VBG pCO2 (37-51) mmHg VBG HCO3 (24-28) mmol/L Sodium (137-145) mmol/L BUN (7-17) mg/dL Creatinine (0.52-1.04) mg/dL Glucose (74-99) mg/dL POC Glucose (mg/dL) 152 H 148 H (75-99) mg/dL Calcium (8.4-10.2) mg/dL Phosphorus (2.5-4.5) mg/dL Total Bilirubin (0.2-1.3) mg/dL AST (14-36) U/L ALT (9-52) U/L Alkaline Phosphatase (38-126) U/L Total Protein (6.3-8.2) g/dL Albumin (3.5-5.0) g/dL Crossmatch 11/11/18 11/11/18 11/11/18 Range/Units 05:21 05:21 05:50 WBC (3.8-10.6) k/uL RBC (3.80-5.40) m/uL Hgb (11.4-16.0) gm/dL Hct (34.0-46.0) % MCHC (31.0-37.0) g/dL RDW (11.5-15.5) % VBG pH 7.18 L* (7.31-7.41) VBG pCO2 59 H (37-51) mmHg VBG HCO3 22 L (24-28) mmol/L Sodium 134 L (137-145) mmol/L BUN 44 H (7-17) mg/dL Creatinine 4.33 H (0.52-1.04) mg/dL Glucose 230 H (74-99) mg/dL POC Glucose (mg/dL) 134 H (75-99) mg/dL Calcium 7.4 L (8.4-10.2) mg/dL Phosphorus 6.8 H (2.5-4.5) mg/dL Total Bilirubin 1.8 H (0.2-1.3) mg/dL AST 2896 H (14-36) U/L ALT 2223 H (9-52) U/L Alkaline Phosphatase 148 H (38-126) U/L Total Protein 4.6 L (6.3-8.2) g/dL Albumin 2.4 L (3.5-5.0) g/dL Crossmatch 11/11/18 Range/Units 06:59 WBC (3.8-10.6) k/uL RBC (3.80-5.40) m/uL Hgb (11.4-16.0) gm/dL Hct (34.0-46.0) % MCHC (31.0-37.0) g/dL RDW (11.5-15.5) % VBG pH (7.31-7.41) VBG pCO2 (37-51) mmHg VBG HCO3 (24-28) mmol/L Sodium (137-145) mmol/L BUN (7-17) mg/dL Creatinine (0.52-1.04) mg/dL Glucose (74-99) mg/dL POC Glucose (mg/dL) 128 H (75-99) mg/dL Calcium (8.4-10.2) mg/dL Phosphorus (2.5-4.5) mg/dL Total Bilirubin (0.2-1.3) mg/dL AST (14-36) U/L ALT (9-52) U/L Alkaline Phosphatase (38-126) U/L Total Protein (6.3-8.2) g/dL Albumin (3.5-5.0) g/dL Crossmatch Microbiology - Last 24 Hours (Table) 11/07/18 00:04 Blood Culture - Preliminary Blood No Growth after 96 hours Assessment and Plan Assessment: Impression: 1. Acute GI bleed melena after receiving intravenous heparin for right lower extremity DVT status post EGD no active bleeding focal area of pallor in the antrum suggestive of ischemia biopsies taken. 2. Acute on chronic anemia with component of acute blood loss with underlying chronic kidney disease receiving dialysis. 3. Transaminitis most likely related to episodes of hypotension shock liver ischemic hepatitis presently receiving IV pressors; LFTs worsening. Plan: 1. CBC CMP monitoring PT/INR. Agreeable for clear liquids. Protonix 40 mg IV twice daily. Assessment and plan a care discussed with Dr. Sharif
[2018-11-11 11:30] LABS: Glucose,Whole Blood 92 mg/dL (75-99)
[2018-11-11] MEDS: ASPIRIN 81 MG PO SCH (11:51)
[2018-11-11] MEDS: CALCIUM ACETATE 667 MG CAP PO SCH ×3 (11:51→17:42)
[2018-11-11] MEDS: HEPARIN SOD,PORK IN 0.45% NACL 25,000 UNIT in 0.45% NACL 1 250ML.BAG IV SCH (11:52)
[2018-11-11] MEDS: ERGOCALCIFEROL 50,000 UNIT CAP PO SCH ×2 (12:09→12:10)
--- NOTE | 2018-11-11 16:07 | US ---
Ultrasound-guided vascular access HISTORY: Venous access Ultrasound support supplied to the referring clinician.
[2018-11-11] MEDS: METOPROLOL SUCCINATE (ER) 50 MG TAB.ER.24H PO SCH (16:30)
[2018-11-11 16:51] LABS: Hepatitis A Antibody IgM Non-Reactive (Non-Reactive); Hepatitis B Core IgM Non-Reactive (Non-Reactive)
--- NOTE | 2018-11-11 17:16 | P.PCN ---
Date of Procedure: 11/11/18 Preoperative Diagnosis: Severe sepsis, acute renal failure, encephalopathy, recurrent atrial tachycardia A. fib and ventricular tachycardia with wide-complex tachyarrhythmia , morbid obesity, DVT in his thrombosis, pulmonary hypertension Postoperative Diagnosis: As above Procedure(s) Performed: Central line left femoral Anesthesia: local Surgeon: Bharathi Ali Condition: critical Disposition: ICU Indications for Procedure: As above Operative Findings: As below Description of Procedure: Informed consent obtained from the patient's family, ultrasound was utilized however due to size of the leg and extensive morbid obesity extremely difficult to use ultrasound with very poor visualization was present however guidance was used and able to get axes into the left femoral vein and a modified Seldinger technique was used to place a triple-lumen catheter all 3 ports flushed secured with #3 silk
--- NOTE | 2018-11-11 17:18 | P.PCN ---
Date of Procedure: 11/11/18 (Attempt left femoral arterial line using ultrasound from ICU as well as radiologically department) Preoperative Diagnosis: Severe sepsis, deep venous thrombosis, hypertension, pulmonary hypertension, acute renal failure, severe profound metabolic acidosis Postoperative Diagnosis: As above Procedure(s) Performed: Attempted left femoral artery arterial line placement Anesthesia: local Surgeon: Bharathi Gordillo Estimated Blood Loss (ml): 5 Condition: critical Disposition: ICU Indications for Procedure: As above Operative Findings: As below Description of Procedure: Patient prepared and draped in a usual fashion informed consent obtained from the patient's family, ultrasound was utilized extremely narrow femoral artery was located very next to the femoral vein patient has extremely large thigh with maximum depth attempted but unable to ask his her cannulate the femoral artery procedures stopped and adequate hemostasis achieved and obtained
[2018-11-11 17:22] LABS: Glucose,Whole Blood 166 mg/dL (75-99)
--- NOTE | 2018-11-11 17:25 | P.PN ---
Subjective Progress Note Date: 11/11/18 (Critical care time spent 45 minutes) Principal diagnosis: Acute renal failure, altered mental status likely related to acute renal failure , hypotension, severe sepsis, hypertension, and urea Right lower extremity venous thrombosis, chronic intermittent thromboembolism, pulmonary hypertension, biventricular failure, acute on chronic systolic heart failure, acute on chronic renal failure is stage IV, small bilateral pleural effusion likely related to heart failure, morbid obesity, suspect sleep disorder breathing and sleep apnea 11/11/2018, patient seen eval examined during the rounds clinically patient remains sedated and intubated, currently patient is on now full ventilator support she is on assist control rate of 20 breathing 20 tidal volume of 505 of PEEP and 75% oxygen, patient remains on heparin drip which is has been started this morning, also on propofol drip 45 mics, levo fed drip is off 24 mics, patient does have been noted to have as a spasm in the upper extremity as well as lower extremity with bluish discoloration, patient has being restarted on heparin drip to optimize the levo fed to contract severe profound metabolic acidosis, reviewed medications reviewed care plan discussed with the staff at length, patient will need a arterial line attempted but unable to cannulate the femoral artery, however able to access the femoral vein a triple-lumen catheter most of the infusions are incompatible with each other, dialysis is not performed due to unstable situation and condition, urine output remains very minimal, Keofeed to be started heparin to be continued monitor hemoglobin closely, critical care time spent 45 minutes including procedure, Patient was intubated last night due to severe tachypnea and tachycardia and intermittent runs of the V. tach along with atrial fibrillation, patient has been initiated amiodarone drip as well, given that ABG could not be obtained venous blood gases are being used 11/10/2018, patient seen eval reexamined during the rounds clinically patient has a not much change from baseline has been transfused 1 unit of packed RBC patient to has been more lethargic but readily arousable arterial blood gas couldn't be obtained a venous blood gas has been performed continued to show respiratory acidosis combined with metabolic acidosis, patient is due for dialysis today also been planned for EGD which has been performed some gastritis has been noted with some white patches suggestive of ischemic changes cannot be excluded for details please refer to EGD note, patient remains on 7 mics of levo fed which is to be titrated down as blood pressure has improved, we will do low-dose bicarb drip as well patient did receive a dose of desmopressin earlier this morning, patient remains on BiPAP 15/10 with the FiO2 to keep saturation over 90-94%, patient remain somnolent and lethargic but readily arousable respond appropriately when awake then goes right back to sleep , patient did receive a dose of Xanax 11/08/2018, patient seen eval reexamined during the rounds clinically patient remains marginal continue require vasopressors currently patient is on 19 mics of levo fed drip, during dialysis patient had episode of the tachyarrhythmia requiring amiodarone now patient after the initial IV boluses back to sinus rhythm, hemodynamic status is overall stable but marginal, urine output remains very low, patient did tolerate the hemodialysis fairly well earlier this morning except the findings as noted to more old bleeding noted it appears to be old blood, patient is currently on desmopressin drip, also has been infused with 1 unit of packed RBC, heparin drip has been on hold since yesterday, vascular surgery has been consulted for evaluation of IVC filter as patient has deep venous thrombosis right lower extremity, sugars continue to be run on the higher side remains on insulin drip, patient is on proton pump inhibitor IV with frequent monitoring with monitoring observation her hemoglobin him to keep hemoglobin over 7 no active bleeding however has been noted by GI services has been consulted as well for GI bleed, Estrace standpoint tolerating BiPAP very well currently patient is on BiPAP with 12 of BiPAP the and 5 EPAP respiratory rate is 22 her spontaneous tidal volumes ranging in mid 400 range, she is on 40 % oxygen, arterial blood gas couldn't be drawn, labs medications and radiographic studies reviewed culture results are reviewed as well no positive cultures been seen patient remains on Zosyn, critical care time spent 35 minutes 11/07/2018, patient seen and evaluated examined during the rounds this morning critical care time spent 40 minutes, patient has removed to the ICU from medical floor as she was hypotensive with poor urine output in addition patient has been more somnolent and lethargic she did have receive a dose of Xanax on the floor, after arrival in ICU patient remains very hypotensive with tachycardia was given multiple fluid boluses to improve the hemodynamics however eventually starting the levo fed drip, patient does have 2 peripheral IVs one of them is not functioning very well, worsening of renal function has been noted the renal services planning to do hemodialysis, patient has very poor peripheral arterial disease unable to obtain ABG in addition to that very poor peripheral pulses are present, patient is arousable opens eyes follow simple commands but remains very anxious and agitated, patient eventually went up to 25 mics of levo fed drip with a systolic blood pressure ranging about 100 210, urine output has been very minimal, given that the lack of ability of IV axis will proceed with a central line however patient needed dialysis port as well will do a trilysis catheter (hemodialysis catheter with extra port), care plan discussed with the vascular surgery as well and renal services planning to do hemodialysis later on today provided hemodynamics remain stable, due to anticipated profound metabolic acidosis patient has been started on bicarb drip , patient is being kept on IV Zosyn heparin has been on hold due to procedures as well as elevated PTT labs reviewed medications reviewed radiographic studies reviewed as well 11/06/2018, patient seen eval examined during the rounds clinically patient has a been doing relatively better in terms of shortness of breath and swelling of the lower extremity patient is currently on room air however renal function continued to go up slightly and Lasix dose is being adjusted by renal service labs reviewed medications reviewed for now we'll continue IV heparin hopefully next 24-48 hours we'll switch it to oral anticoagulants 11/05/2018, patient seen evlauro reexamined during the rounds clinically has been doing relatively better in terms of breathing leg swelling the lower extremity is slightly better patient is on anticoagulation with IV heparin for DVT thrombosis of lower extremity on the right side also probable pulmonary embolism as well Patient presented to the hospital with worsening dyspnea and edema. Patient states she's been getting progressively short of breath over the last 1 week. She initially thought it was asthma but the symptoms did not improve with nebulized treatments. She also noticed edema in her legs. She states she does not take any diuretics at home. She admits to good urine output. No hematuria or dysuria. No vomiting or diarrhea. Oral intake has been fair. Denies use of NSAIDs. Chest CT revealed bilateral pleural effusions. Echocardiogram revealed ejection fraction of 35-40% with severe pulmonary hypertension. Currently maintained on Lasix 40 mg IV twice daily. She has been voiding. No fever or chills. Her duplex ultrasound of the lower extremity came back positive for DVT patient is now being started on IV heparin Objective - Vital Signs Vital signs: Vital Signs Temp 98.1 F 11/11/18 12:00 Pulse 114 H 11/11/18 16:38 Resp 20 11/11/18 16:30 BP 96/40 11/11/18 16:30 Pulse Ox 100 11/11/18 16:30 Intake & Output 11/10/18 11/11/18 11/11/18 18:59 06:59 18:59 Intake Total 2205.858 6146.226 1445.7 Output Total 7 2 0 Balance 9809.145 2811.226 1445.7 Weight 116 kg 118 kg Intake: IV 650 600 500 0.9 NACL 150 500 Desmopressin Acetate 35 50 mcg In Sodium Chloride 0. 9% 50 ml @ 200 mls/hr IVPB ONCE ONE Rx#: [id number] Dextrose 5% in Water 1, 50 450 000 ml @ 50 mls/hr IV . Q22H [facility] with Sodium Bicarb (1 Meq/ml) 100 ml Rx#:[id number] Sodium Chloride 0.9% 1, 550 000 ml @ 50 mls/hr IV . Q20H [facility] Rx#:[id number] Intake, IV Titration 6.451 199.226 795.7 Amount Amiodarone 450 mg In 250 Dextrose 5% in Water 250 ml @ 1 MG/MIN 33.33 mls/ hr IV .Q7H31M [facility] Rx#: [id number] Heparin Sod,Pork in 0.45% 250 NaCl 25,000 unit In 0.45 % NaCl 1 250ml.bag @ 8.45 UNITS/KG/HR 9.97 mls/hr IV .Q24H [facility] Rx#: [id number] Insulin Regular 100 unit 6.451 9.578 In Sodium Chloride 0.9% 100 ml @ Per Protocol IV .Q0M [facility] Rx#:[id number] Norepinephrine 16 mg In 189.648 Sodium Chloride 0.9% 250 ml @ Titrate IV .Q0M [facility] Rx#:[id number] Piperacillin-Tazobactam 3 100 .375 gm In Sodium Chloride 0.9% 100 ml @ 25 mls/hr IVPB Q12HR [facility] Rx #:[id number] Propofol 1,000 mg In 195.7 Empty Bag 1 bag @ Titrate IV .Q0M [facility] Rx#: [id number] Oral 50 500 0 Blood Product 310 Rc As-1 Unit 310 [id number] Other 150 Output: Urine 5 0 0 Stool 2 2 Other: Voiding Method Indwelling Catheter Indwelling Catheter Indwelling Catheter # Voids 0 0 - Exam - Constitutional General appearance: disheveled, mild distress, morbidly obese, intermittently anxious and agitated now relatively more comfortable on full ventilator support - Neck Neck: normal ROM Carotids: bilateral: upstroke normal Thyroid: bilateral: normal size - Respiratory Respiratory: bilateral: CTA, few basal rales, negative: diminished, dullness - Cardiovascular Rhythm: regular Heart sounds: normal: S1, S2 - Integumentary Integumentary: normal turgor Abdomen soft - Neurologic Neurologic: CNII-XII intact - Musculoskeletal Musculoskeletal: Moving all 4 extremity good tone in all 4 extremity,- Psychiatric Psychiatric: A&O x's 2, in appropriate affect, at times become anxious and agitated and combative - Labs CBC & Chem 7: 11/11/18 05:21 11/11/18 05:21 Labs: Abnormal Lab Results - Last 24 Hours (Table) 11/10/18 11/10/18 11/10/18 Range/Units 19:00 20:24 22:04 WBC (3.8-10.6) k/uL RBC (3.80-5.40) m/uL Hgb (11.4-16.0) gm/dL Hct (34.0-46.0) % MCHC (31.0-37.0) g/dL RDW (11.5-15.5) % Neutrophils # (Manual) (1.3-7.7) k/uL Lymphocytes # (Manual) (1.0-4.8) k/uL Metamyelocytes # (Man) (0) k/uL Nucleated RBCs (0-0) /100 WBC PT (9.0-12.0) sec INR (<1.2) VBG pH (7.31-7.41) VBG pCO2 (37-51) mmHg VBG HCO3 (24-28) mmol/L Sodium (137-145) mmol/L BUN (7-17) mg/dL Creatinine (0.52-1.04) mg/dL Glucose (74-99) mg/dL POC Glucose (mg/dL) 155 H 190 H 158 H (75-99) mg/dL Calcium (8.4-10.2) mg/dL Phosphorus (2.5-4.5) mg/dL Total Bilirubin (0.2-1.3) mg/dL AST (14-36) U/L ALT (9-52) U/L Alkaline Phosphatase (38-126) U/L Total Protein (6.3-8.2) g/dL Albumin (3.5-5.0) g/dL 11/10/18 11/11/18 11/11/18 Range/Units 23:08 00:32 01:03 WBC (3.8-10.6) k/uL RBC (3.80-5.40) m/uL Hgb (11.4-16.0) gm/dL Hct (34.0-46.0) % MCHC (31.0-37.0) g/dL RDW (11.5-15.5) % Neutrophils # (Manual) (1.3-7.7) k/uL Lymphocytes # (Manual) (1.0-4.8) k/uL Metamyelocytes # (Man) (0) k/uL Nucleated RBCs (0-0) /100 WBC PT (9.0-12.0) sec INR (<1.2) VBG pH (7.31-7.41) VBG pCO2 (37-51) mmHg VBG HCO3 (24-28) mmol/L Sodium 135 L (137-145) mmol/L BUN 40 H (7-17) mg/dL Creatinine 4.05 H (0.52-1.04) mg/dL Glucose 186 H (74-99) mg/dL POC Glucose (mg/dL) 167 H 166 H (75-99) mg/dL Calcium 7.5 L (8.4-10.2) mg/dL Phosphorus (2.5-4.5) mg/dL Total Bilirubin 2.3 H (0.2-1.3) mg/dL AST 2527 H (14-36) U/L ALT 1993 H (9-52) U/L Alkaline Phosphatase 161 H (38-126) U/L Total Protein 4.7 L (6.3-8.2) g/dL Albumin 2.4 L (3.5-5.0) g/dL 11/11/18 11/11/18 11/11/18 Range/Units 01:59 03:24 05:11 WBC (3.8-10.6) k/uL RBC (3.80-5.40) m/uL Hgb (11.4-16.0) gm/dL Hct (34.0-46.0) % MCHC (31.0-37.0) g/dL RDW (11.5-15.5) % Neutrophils # (Manual) (1.3-7.7) k/uL Lymphocytes # (Manual) (1.0-4.8) k/uL Metamyelocytes # (Man) (0) k/uL Nucleated RBCs (0-0) /100 WBC PT (9.0-12.0) sec INR (<1.2) VBG pH (7.31-7.41) VBG pCO2 (37-51) mmHg VBG HCO3 (24-28) mmol/L Sodium (137-145) mmol/L BUN (7-17) mg/dL Creatinine (0.52-1.04) mg/dL Glucose (74-99) mg/dL POC Glucose (mg/dL) 193 H 152 H 148 H (75-99) mg/dL Calcium (8.4-10.2) mg/dL Phosphorus (2.5-4.5) mg/dL Total Bilirubin (0.2-1.3) mg/dL AST (14-36) U/L ALT (9-52) U/L Alkaline Phosphatase (38-126) U/L Total Protein (6.3-8.2) g/dL Albumin (3.5-5.0) g/dL 11/11/18 11/11/18 11/11/18 Range/Units 05:20 05:21 05:21 WBC 17.7 H (3.8-10.6) k/uL RBC 3.01 L (3.80-5.40) m/uL Hgb 9.1 L D (11.4-16.0) gm/dL Hct 29.8 L (34.0-46.0) % MCHC 30.4 L (31.0-37.0) g/dL RDW 18.1 H (11.5-15.5) % Neutrophils # (Manual) 16.60 H (1.3-7.7) k/uL Lymphocytes # (Manual) 0.53 L (1.0-4.8) k/uL Metamyelocytes # (Man) 0.18 H (0) k/uL Nucleated RBCs 4 H (0-0) /100 WBC PT 13.1 H (9.0-12.0) sec INR 1.3 H (<1.2) VBG pH (7.31-7.41) VBG pCO2 (37-51) mmHg VBG HCO3 (24-28) mmol/L Sodium 134 L (137-145) mmol/L BUN 44 H (7-17) mg/dL Creatinine 4.33 H (0.52-1.04) mg/dL Glucose 230 H (74-99) mg/dL POC Glucose (mg/dL) (75-99) mg/dL Calcium 7.4 L (8.4-10.2) mg/dL Phosphorus 6.8 H (2.5-4.5) mg/dL Total Bilirubin 1.8 H (0.2-1.3) mg/dL AST 2896 H (14-36) U/L ALT 2223 H (9-52) U/L Alkaline Phosphatase 148 H (38-126) U/L Total Protein 4.6 L (6.3-8.2) g/dL Albumin 2.4 L (3.5-5.0) g/dL 11/11/18 11/11/18 11/11/18 Range/Units 05:21 05:50 06:59 WBC (3.8-10.6) k/uL RBC (3.80-5.40) m/uL Hgb (11.4-16.0) gm/dL Hct (34.0-46.0) % MCHC (31.0-37.0) g/dL RDW (11.5-15.5) % Neutrophils # (Manual) (1.3-7.7) k/uL Lymphocytes # (Manual) (1.0-4.8) k/uL Metamyelocytes # (Man) (0) k/uL Nucleated RBCs (0-0) /100 WBC PT (9.0-12.0) sec INR (<1.2) VBG pH 7.18 L* (7.31-7.41) VBG pCO2 59 H (37-51) mmHg VBG HCO3 22 L (24-28) mmol/L Sodium (137-145) mmol/L BUN (7-17) mg/dL Creatinine (0.52-1.04) mg/dL Glucose (74-99) mg/dL POC Glucose (mg/dL) 134 H 128 H (75-99) mg/dL Calcium (8.4-10.2) mg/dL Phosphorus (2.5-4.5) mg/dL Total Bilirubin (0.2-1.3) mg/dL AST (14-36) U/L ALT (9-52) U/L Alkaline Phosphatase (38-126) U/L Total Protein (6.3-8.2) g/dL Albumin (3.5-5.0) g/dL 11/11/18 Range/Units 08:29 WBC (3.8-10.6) k/uL RBC (3.80-5.40) m/uL Hgb (11.4-16.0) gm/dL Hct (34.0-46.0) % MCHC (31.0-37.0) g/dL RDW (11.5-15.5) % Neutrophils # (Manual) (1.3-7.7) k/uL Lymphocytes # (Manual) (1.0-4.8) k/uL Metamyelocytes # (Man) (0) k/uL Nucleated RBCs (0-0) /100 WBC PT (9.0-12.0) sec INR (<1.2) VBG pH (7.31-7.41) VBG pCO2 (37-51) mmHg VBG HCO3 (24-28) mmol/L Sodium (137-145) mmol/L BUN (7-17) mg/dL Creatinine (0.52-1.04) mg/dL Glucose (74-99) mg/dL POC Glucose (mg/dL) 113 H (75-99) mg/dL Calcium (8.4-10.2) mg/dL Phosphorus (2.5-4.5) mg/dL Total Bilirubin (0.2-1.3) mg/dL AST (14-36) U/L ALT (9-52) U/L Alkaline Phosphatase (38-126) U/L Total Protein (6.3-8.2) g/dL Albumin (3.5-5.0) g/dL Microbiology - Last 24 Hours (Table) 11/11/18 04:15 Gram Stain - Preliminary Sputum Sputum Culture - Preliminary 11/07/18 00:04 Blood Culture - Preliminary Blood No Growth after 96 hours Assessment and Plan Assessment: Acute on chronic renal failure and anuric Runs of the atrial fibrillation along with wide complex tachycardia Acute respiratory failure multifactorial due to profound metabolic acidosis along with arrhythmia and congestive heart failure likely biventricular failure and pulmonary embolism Severe sepsis on broad-spectrum antibiotics, possible right lower lobe pneumonia cannot be excluded less likely aspiration related as patient has a good gag flex GI bleed of unclear source status post blood transfusion Altered mental status and metabolic encephalopathy likely multifactorial related to renal failure Deep venous thrombosis of right lower extremity and possible pulmonary embolism 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 Small bilateral pleural effusion more so on the right side compared to left side Acute blood loss anemia Plan: Anticoagulation currently is being resumed in the form of IV heparin We will defer placement of IVC filter to vascular surgery Continue daily hemodialysis as tolerated Blood transfusion as needed keep hemoglobin over 7 Optimize therapy for heart failure Monitor renal functions closely Further recommendations pending plan of care as per clinical response of the patient Bicarb drip low-dose to be reinitiated due to vasa spasm and cyanotic changes into the toes Taper levo fed drip as tolerated As per discussion with the it appears that altered mental status is not new and has been present for over a month, and as renal functions have been progressively getting worse patient's mental status was worsening with development of confusion. Patient however remains very awake respond appropriately with intermittent episodes of confusion when addressed directly long-term prognosis poor
[2018-11-11] MEDS ORDERED: SODIUM CHLORIDE 0.9% 1,000 ML with SODIUM BICARB (1 MEQ/ML) 100 ML IV SCH ×2 (17:30)
[2018-11-11] MEDS ORDERED: INSULIN ASPART (NovoLOG) 100 UNIT/ML VIAL SQ SCH ×2 (18:00→20:00)
[2018-11-11] MEDS: DEXTROSE 5% IN WATER 1,000 ML with SODIUM BICARB (1 MEQ/ML) 100 ML IV SCH (20:14)
[2018-11-11 20:36] LABS: Glucose,Whole Blood 320 mg/dL (75-99)
--- NOTE | 2018-11-11 22:04 | PN ---
PROGRESS NOTE DATE OF SERVICE: 11/11/2018. REASON FOR FOLLOWUP: Pneumonia. INTERVAL HISTORY: The patient went into respiratory distress this morning and had to be re-intubated. Patient is hemodynamically stable, not on pressor support. No changes noted by the nursing staff or any significant diarrhea. PHYSICAL EXAMINATION: Blood pressure 106/57 with a pulse of 106. Temperature 97.9. She is 100% on 70% FiO2. General description is an elderly female intubated on the vent. RESPIRATORY SYSTEM: Unlabored breathing with decreased breath sounds in the bases. No wheeze. HEART: S1, S2. Regular rate and rhythm. ABDOMEN: Soft. Mildly distended. No guarding or rigidity. EXTREMITIES: Some trace edema of feet. LABS: Hemoglobin 9.1, white count 17.7, BUN of 44, creatinine 4.33. Patient's sputum was negative. Repeat sputum has been ordered and is currently pending. DIAGNOSTIC IMPRESSION AND PLAN: Patient with acute respiratory failure which is likely multifactorial in this patient with a possible component of pneumonia. Initial sputum was negative. Repeat has been ordered. However, the patient has been intubated. Patient is currently on Zosyn, to be continued for now while waiting for the condition to stabilize. Overall prognosis guarded. Continue with supportive care. MMODL / IJN: [id number] /
[2018-11-11] MEDS: MONTELUKAST 10 MG TAB PO SCH (22:08)
[2018-11-11] MEDS: NOREPINEPHRINE 16 MG in SODIUM CHLORIDE 0.9% 250 ML IV SCH (22:24)
[2018-11-11] MEDS: PRAVASTATIN SODIUM 20 MG TAB PO SCH (22:24)
--- NOTE | 2018-11-11 22:46 | PN ---
PROGRESS NOTE White female with acute renal failure, hypertension, severe sepsis, systolic CHF, COPD, insulin-dependent diabetes mellitus, nicotine addiction. She was intubated last night due to tachypnea, tachycardia with ventricular tachycardia and atrial fibrillation. She is on amiodarone drip. Femoral artery line was placed today. Temperature 98, pulse 114, respiratory rate 20 to 22, blood pressure 96/40, pulse ox 100. CARDIOVASCULAR: S1, S2. LUNGS: Rales at the bases. HEMATOLOGY: Negative Homans. PSYCH: Fair mood and affect. GI: Soft. ASSESSMENT: 1. Acute hypoxemic respiratory distress. 2. Metabolic encephalopathy. 3. Deep venous thrombosis with possible pulmonary embolism. 4. Small bilateral pleural effusion. 5. Acute blood loss anemia. Possible blood transfusion to keep hemoglobin over 7. Possible IVC filter. Dialysis is needed for acute tubular necrosis, wide-complex tachycardia and acute respiratory failure. Broad-spectrum antibiotics for right lower lobe pneumonia, GI bleed, acute on chronic renal failure. Continue current treatment. ICU 30 minutes. MMODL / IJN: [id number] /
[2018-11-12 00:18] LABS: Glucose,Whole Blood 362 mg/dL (75-99)
[2018-11-12] MEDS: AMIODARONE 450 MG in DEXTROSE 5% IN WATER 250 ML IV SCH ×2 (00:24)
[2018-11-12] MEDS ORDERED: INSULIN REGULAR BOLUS (FROM DRIP BAG) IV PRN (00:48)
[2018-11-12] MEDS: SODIUM CHLORIDE 0.9% 1,000 ML IV SCH ×2 (01:10→21:20)
[2018-11-12 01:25] LABS: Glucose,Whole Blood 291 mg/dL (75-99)
[2018-11-12] MEDS: INSULIN REGULAR 100 UNIT in SODIUM CHLORIDE 0.9% 100 ML IV SCH ×2 (01:27→08:53)
[2018-11-12 02:08] LABS: Glucose,Whole Blood 310 mg/dL (75-99)
[2018-11-12 02:43] LABS: Glucose,Whole Blood 295 mg/dL (75-99)
[2018-11-12 03:03] LABS: Albumin 2.1 g/dL (3.5-5.0); Calcium 6.7 mg/dL (8.4-10.2); Potassium 3.7 mmol/L (3.5-5.1); Total Bilirubin 1.3 mg/dL (0.2-1.3); Total Protein 4.2 g/dL (6.3-8.2)
[2018-11-12 03:30] LABS: Glucose,Whole Blood 309 mg/dL (75-99)
[2018-11-12 04:57] LABS: ABG Base Excess -5.7 mmol/L; ABG HCO3 23 mmol/L (21-25); ABG Oxygen Saturation 72.1 % (94-97); ABG PCO2 59 mmHg (35-45); ABG TCO2 24 mmol/L (19-24)
[2018-11-12 05:14] LABS: Glucose,Whole Blood 249 mg/dL (75-99)
[2018-11-12 05:23] LABS: ABG PH 7.19 (7.35-7.45); ABG PO2 46 mmHg (83-108)
[2018-11-12 06:11] LABS: Glucose,Whole Blood 149 mg/dL (75-99)
[2018-11-12 06:16] LABS: Albumin 2.2 g/dL (3.5-5.0); Calcium 6.8 mg/dL (8.4-10.2); Magnesium 2.2 mg/dL (1.6-2.3); Potassium 3.7 mmol/L (3.5-5.1); Total Bilirubin 1.3 mg/dL (0.2-1.3); Total Protein 4.4 g/dL (6.3-8.2)
[2018-11-12 06:24] LABS: Anisocytosis Slight; HCT 28.4 % (34.0-46.0); HGB 8.6 gm/dL (11.4-16.0); Hypochromasia Marked; MCH 29.6 pg (25.0-35.0); MCHC 30.2 g/dL (31.0-37.0); Macrocytosis Slight; Mean Platelet Volume 7.2; Platelet Count 181 k/uL (150-450); Poikilocytosis Slight; RBC 2.89 m/uL (3.80-5.40); RDW 18.8 % (11.5-15.5)
[2018-11-12 06:29] LABS: INR 1.2 (<1.2); Prothrombin Time 12.7 sec (9.0-12.0)
--- NOTE | 2018-11-12 06:29 | XR ---
EXAMINATION TYPE: XR chest 1V portable DATE OF EXAM: 11/12/2018 HISTORY: Tube placement. REFERENCE: Previous study dated 11/11/2018. FINDINGS: There has been a midline sternotomy. The patient is ET tube and NG tube remain in place, unchanged in appearance. There is bibasilar airspace disease. Heart size upper limits of normal. There are small, bilateral ef fusions. IMPRESSION: NO SIGNIFICANT INTERVAL CHANGE IN THE APPEARANCE OF THE CHEST.
[2018-11-12 07:13] LABS: Glucose,Whole Blood 249 mg/dL (75-99)
--- NOTE | 2018-11-12 07:37 | P.PN ---
Subjective Progress Note Date: 11/12/18 Principal diagnosis: CHF/cardiomyopathy This is a pleasant 58-year-old female patient with an extensive past medical history for her age consistent of coronary artery disease, peripheral arterial disease, diabetes, hypertension, dyslipidemia, and chronic kidney disease, was admitted to the hospital with chest discomfort and was ruled in for acute non- ST patient myocardial infarction and also with congestive heart failure secondary to systolic dysfunction. The patient was treated medically for the non-STEMI The echocardiogram revealed impaired LV function with EF of 35%, mild aortic stenosis, severe pulmonary hypertension, and moderate tricuspid regurgitation. I'll follow-up with the patient today, 11/12/2018, the patient continues to be intubated and continues to be on ventilator. She is on 65 FiO2. The chest x- ray continues to show the same. Hemodynamically she continues to be on norepinephrine but the dose has been coming down. She converted to normal sinus mechanism last night on amiodarone IV and then going to switch her to amiodarone by mouth at 400 mg twice a day. The liver function tests has been coming down. She continues to be of heparin IV for anticoagulation with anticipation to switch her to anticoagulation by mouth down the line. Objective - Vital Signs Vital signs: Vital Signs Temp 98.0 F 11/12/18 04:00 Pulse 68 11/12/18 07:00 Resp 20 11/12/18 07:00 BP 123/44 11/12/18 07:00 Pulse Ox 100 11/12/18 06:00 Intake & Output 11/11/18 11/12/18 11/12/18 18:59 06:59 18:59 Intake Total 4345.994 0031.985 98.733 Output Total 0 12 0 Balance 0451.124 1753.985 98.733 Weight 120.7 kg Intake: IV 600 915 80 0.9 NACL 600 600 50 Dextrose 5% in Water 1, 315 30 000 ml @ 30 mls/hr IV . Q24H [facility] with Sodium Bicarb (1 Meq/ml) 100 ml Rx#:[id number] Intake, IV Titration 1073.970 232.985 18.733 Amount Amiodarone 450 mg In 250 Dextrose 5% in Water 250 ml @ 1 MG/MIN 33.33 mls/ hr IV .Q7H31M [facility] Rx#: [id number] Heparin Sod,Pork in 0.45% 278.747 NaCl 25,000 unit In 0.45 % NaCl 1 250ml.bag @ 8.45 UNITS/KG/HR 9.97 mls/hr IV .Q24H [facility] Rx#: [id number] Insulin Regular 100 unit 44.566 3.282 In Sodium Chloride 0.9% 100 ml @ Per Protocol IV .Q0M [facility] Rx#:[id number] Norepinephrine 16 mg In 149.523 188.419 15.451 Sodium Chloride 0.9% 250 ml @ Titrate IV .Q0M [facility] Rx#:[id number] Piperacillin-Tazobactam 3 100 .375 gm In Sodium Chloride 0.9% 100 ml @ 25 mls/hr IVPB Q12HR [facility] Rx #:[id number] Propofol 1,000 mg In 295.7 Empty Bag 1 bag @ Titrate IV .Q0M [facility] Rx#: [id number] Oral 0 Other 150 Output: Urine 0 12 0 Other: Voiding Method Indwelling Catheter Indwelling Catheter # Voids 0 - Constitutional General appearance: Present: no acute distress - Respiratory Respiratory: bilateral: CTA - Cardiovascular Rhythm: regular Heart sounds: normal: S1, S2 - Labs CBC & Chem 7: 11/12/18 05:13 11/12/18 05:13 Labs: Abnormal Lab Results - Last 24 Hours (Table) 11/11/18 11/11/18 11/11/18 Range/Units 05:20 05:21 08:29 WBC 17.7 H (3.8-10.6) k/uL RBC (3.80-5.40) m/uL Hgb (11.4-16.0) gm/dL Hct (34.0-46.0) % MCHC (31.0-37.0) g/dL RDW (11.5-15.5) % Neutrophils # (Manual) 16.60 H (1.3-7.7) k/uL Lymphocytes # (Manual) 0.53 L (1.0-4.8) k/uL Metamyelocytes # (Man) 0.18 H (0) k/uL Nucleated RBCs 4 H (0-0) /100 WBC PT 13.1 H (9.0-12.0) sec INR 1.3 H (<1.2) APTT (22.0-30.0) sec ABG pH (7.35-7.45) ABG pCO2 (35-45) mmHg ABG pO2 (83-108) mmHg ABG O2 Saturation (94-97) % Sodium (137-145) mmol/L Carbon Dioxide (22-30) mmol/L BUN (7-17) mg/dL Creatinine (0.52-1.04) mg/dL Glucose (74-99) mg/dL POC Glucose (mg/dL) 113 H (75-99) mg/dL Calcium (8.4-10.2) mg/dL Phosphorus (2.5-4.5) mg/dL AST (14-36) U/L ALT (9-52) U/L Alkaline Phosphatase (38-126) U/L Total Protein (6.3-8.2) g/dL Albumin (3.5-5.0) g/dL 11/11/18 11/11/18 11/11/18 Range/Units 17:10 20:17 23:00 WBC (3.8-10.6) k/uL RBC (3.80-5.40) m/uL Hgb (11.4-16.0) gm/dL Hct (34.0-46.0) % MCHC (31.0-37.0) g/dL RDW (11.5-15.5) % Neutrophils # (Manual) (1.3-7.7) k/uL Lymphocytes # (Manual) (1.0-4.8) k/uL Metamyelocytes # (Man) (0) k/uL Nucleated RBCs (0-0) /100 WBC PT (9.0-12.0) sec INR (<1.2) APTT 59.4 H (22.0-30.0) sec ABG pH (7.35-7.45) ABG pCO2 (35-45) mmHg ABG pO2 (83-108) mmHg ABG O2 Saturation (94-97) % Sodium (137-145) mmol/L Carbon Dioxide (22-30) mmol/L BUN (7-17) mg/dL Creatinine (0.52-1.04) mg/dL Glucose (74-99) mg/dL POC Glucose (mg/dL) 166 H 320 H (75-99) mg/dL Calcium (8.4-10.2) mg/dL Phosphorus (2.5-4.5) mg/dL AST (14-36) U/L ALT (9-52) U/L Alkaline Phosphatase (38-126) U/L Total Protein (6.3-8.2) g/dL Albumin (3.5-5.0) g/dL 11/12/18 11/12/18 11/12/18 Range/Units 00:06 01:13 01:57 WBC (3.8-10.6) k/uL RBC (3.80-5.40) m/uL Hgb (11.4-16.0) gm/dL Hct (34.0-46.0) % MCHC (31.0-37.0) g/dL RDW (11.5-15.5) % Neutrophils # (Manual) (1.3-7.7) k/uL Lymphocytes # (Manual) (1.0-4.8) k/uL Metamyelocytes # (Man) (0) k/uL Nucleated RBCs (0-0) /100 WBC PT (9.0-12.0) sec INR (<1.2) APTT (22.0-30.0) sec ABG pH (7.35-7.45) ABG pCO2 (35-45) mmHg ABG pO2 (83-108) mmHg ABG O2 Saturation (94-97) % Sodium (137-145) mmol/L Carbon Dioxide (22-30) mmol/L BUN (7-17) mg/dL Creatinine (0.52-1.04) mg/dL Glucose (74-99) mg/dL POC Glucose (mg/dL) 362 H 291 H 310 H (75-99) mg/dL Calcium (8.4-10.2) mg/dL Phosphorus (2.5-4.5) mg/dL AST (14-36) U/L ALT (9-52) U/L Alkaline Phosphatase (38-126) U/L Total Protein (6.3-8.2) g/dL Albumin (3.5-5.0) g/dL 11/12/18 11/12/18 11/12/18 Range/Units 02:29 02:35 03:15 WBC (3.8-10.6) k/uL RBC (3.80-5.40) m/uL Hgb (11.4-16.0) gm/dL Hct (34.0-46.0) % MCHC (31.0-37.0) g/dL RDW (11.5-15.5) % Neutrophils # (Manual) (1.3-7.7) k/uL Lymphocytes # (Manual) (1.0-4.8) k/uL Metamyelocytes # (Man) (0) k/uL Nucleated RBCs (0-0) /100 WBC PT (9.0-12.0) sec INR (<1.2) APTT (22.0-30.0) sec ABG pH (7.35-7.45) ABG pCO2 (35-45) mmHg ABG pO2 (83-108) mmHg ABG O2 Saturation (94-97) % Sodium 132 L (137-145) mmol/L Carbon Dioxide 21 L (22-30) mmol/L BUN 56 H (7-17) mg/dL Creatinine 5.45 H (0.52-1.04) mg/dL Glucose 313 H (74-99) mg/dL POC Glucose (mg/dL) 295 H 309 H (75-99) mg/dL Calcium 6.7 L (8.4-10.2) mg/dL Phosphorus (2.5-4.5) mg/dL AST 1473 H (14-36) U/L ALT 1892 H (9-52) U/L Alkaline Phosphatase 147 H (38-126) U/L Total Protein 4.2 L (6.3-8.2) g/dL Albumin 2.1 L (3.5-5.0) g/dL 11/12/18 11/12/18 11/12/18 Range/Units 04:55 05:03 05:13 WBC 12.5 H (3.8-10.6) k/uL RBC 2.89 L (3.80-5.40) m/uL Hgb 8.6 L (11.4-16.0) gm/dL Hct 28.4 L (34.0-46.0) % MCHC 30.2 L (31.0-37.0) g/dL RDW 18.8 H (11.5-15.5) % Neutrophils # (Manual) (1.3-7.7) k/uL Lymphocytes # (Manual) (1.0-4.8) k/uL Metamyelocytes # (Man) (0) k/uL Nucleated RBCs (0-0) /100 WBC PT (9.0-12.0) sec INR (<1.2) APTT (22.0-30.0) sec ABG pH 7.19 L* (7.35-7.45) ABG pCO2 59 H (35-45) mmHg ABG pO2 46 L* (83-108) mmHg ABG O2 Saturation 72.1 L (94-97) % Sodium (137-145) mmol/L Carbon Dioxide (22-30) mmol/L BUN (7-17) mg/dL Creatinine (0.52-1.04) mg/dL Glucose (74-99) mg/dL POC Glucose (mg/dL) 249 H (75-99) mg/dL Calcium (8.4-10.2) mg/dL Phosphorus (2.5-4.5) mg/dL AST (14-36) U/L ALT (9-52) U/L Alkaline Phosphatase (38-126) U/L Total Protein (6.3-8.2) g/dL Albumin (3.5-5.0) g/dL 11/12/18 11/12/18 11/12/18 Range/Units 05:13 05:13 06:00 WBC (3.8-10.6) k/uL RBC (3.80-5.40) m/uL Hgb (11.4-16.0) gm/dL Hct (34.0-46.0) % MCHC (31.0-37.0) g/dL RDW (11.5-15.5) % Neutrophils # (Manual) (1.3-7.7) k/uL Lymphocytes # (Manual) (1.0-4.8) k/uL Metamyelocytes # (Man) (0) k/uL Nucleated RBCs (0-0) /100 WBC PT 12.7 H (9.0-12.0) sec INR 1.2 H (<1.2) APTT (22.0-30.0) sec ABG pH (7.35-7.45) ABG pCO2 (35-45) mmHg ABG pO2 (83-108) mmHg ABG O2 Saturation (94-97) % Sodium 132 L (137-145) mmol/L Carbon Dioxide 21 L (22-30) mmol/L BUN 56 H (7-17) mg/dL Creatinine 5.37 H (0.52-1.04) mg/dL Glucose 269 H (74-99) mg/dL POC Glucose (mg/dL) 149 H (75-99) mg/dL Calcium 6.8 L (8.4-10.2) mg/dL Phosphorus 6.0 H (2.5-4.5) mg/dL AST 1475 H (14-36) U/L ALT 1957 H (9-52) U/L Alkaline Phosphatase 150 H (38-126) U/L Total Protein 4.4 L (6.3-8.2) g/dL Albumin 2.2 L (3.5-5.0) g/dL 11/12/18 Range/Units 07:02 WBC (3.8-10.6) k/uL RBC (3.80-5.40) m/uL Hgb (11.4-16.0) gm/dL Hct (34.0-46.0) % MCHC (31.0-37.0) g/dL RDW (11.5-15.5) % Neutrophils # (Manual) (1.3-7.7) k/uL Lymphocytes # (Manual) (1.0-4.8) k/uL Metamyelocytes # (Man) (0) k/uL Nucleated RBCs (0-0) /100 WBC PT (9.0-12.0) sec INR (<1.2) APTT (22.0-30.0) sec ABG pH (7.35-7.45) ABG pCO2 (35-45) mmHg ABG pO2 (83-108) mmHg ABG O2 Saturation (94-97) % Sodium (137-145) mmol/L Carbon Dioxide (22-30) mmol/L BUN (7-17) mg/dL Creatinine (0.52-1.04) mg/dL Glucose (74-99) mg/dL POC Glucose (mg/dL) 249 H (75-99) mg/dL Calcium (8.4-10.2) mg/dL Phosphorus (2.5-4.5) mg/dL AST (14-36) U/L ALT (9-52) U/L Alkaline Phosphatase (38-126) U/L Total Protein (6.3-8.2) g/dL Albumin (3.5-5.0) g/dL Microbiology - Last 24 Hours (Table) 11/07/18 00:04 Blood Culture - Preliminary Blood No Growth after 120 hours 11/11/18 04:15 Gram Stain - Preliminary Sputum Sputum Culture - Preliminary Assessment and Plan Assessment: Assessment #1 systolic congestive heart failure exacerbation #2 acute non-ST elevation myocardial infarction #3 acute on chronic renal failure #4 peripheral vascular disease #5 systemic hypertension #6 hyperkalemia Plan #1 the patient is on dialysis now #2 the right wean the patient from the vasopressors #3 DC amiodarone IV and start amiodarone by mouth #4 continue heparin for anticoagulation and switch to anticoagulation by mouth down the line #5 follow-up with the patient
[2018-11-12] MEDS: ALBUTEROL NEBULIZED 2.5 MG/3 ML INHALATION PRN (08:13)
[2018-11-12 08:26] LABS: Glucose,Whole Blood 220 mg/dL (75-99)
[2018-11-12] MEDS: CALCIUM ACETATE 667 MG CAP PO SCH ×3 (08:56→19:01)
--- NOTE | 2018-11-12 08:58 | P.PN ---
Subjective Progress Note Date: 11/12/18 Principal diagnosis: Acute renal failure, altered mental status likely related to acute renal failure , hypotension, severe sepsis, hypertension, A. fib with RVR Right lower extremity venous thrombosis, chronic intermittent thromboembolism, pulmonary hypertension, biventricular failure, acute on chronic systolic heart failure, acute on chronic renal failure is stage IV, small bilateral pleural effusion likely related to heart failure, morbid obesity, suspect sleep disorder breathing and sleep apnea 11/12/2018, patient seen eval examined during the rounds clinically patient is slightly improved in terms of laboratory data and hemodynamic support, patient remains sedated with propofol drip currently the dose is down to 40 mics, it is down to 20 mics patient continued to manifest ischemic changes in the toes as well as in the fingertips, bicarb drip is being given to counteract severe profound metabolic peripheral acidosis, she remains on full ventilator support with assist control of 20 tidal volume of 500, PEEP of 5, FiO2 down to 65%, oxygen saturation is 100% as checked with the right ear lobe, patient is now in sinus rhythm has been in A. fib but spontaneously converted patient has been amiodarone IV which is to be switched to oral aspirin cardiovascular services, current infusions include heparin drip tolerating very well no new bleeding has been seen along with levo fed drip 20 mics, propofol drip and bicarb drip, respiratory secretions are minimal, bowel sounds are hypoactive, no evidence of bleeding has been seen patient to be started on tube feed and dialysis is being planned later on today as well as per discussion with the renal services, answers are all negative so far, chest x-ray shows right lower lobe subsegmental atelectasis small effusion which is stable, leukocytosis improved today compared to yesterday, critical care time spent 35 minutes 11/11/2018, patient seen eval examined during the rounds clinically patient remains sedated and intubated, currently patient is on now full ventilator support she is on assist control rate of 20 breathing 20 tidal volume of 505 of PEEP and 75% oxygen, patient remains on heparin drip which is has been started this morning, also on propofol drip 45 mics, levo fed drip is off 24 mics, patient does have been noted to have as a spasm in the upper extremity as well as lower extremity with bluish discoloration, patient has being restarted on heparin drip to optimize the levo fed to contract severe profound metabolic acidosis, reviewed medications reviewed care plan discussed with the staff at length, patient will need a arterial line attempted but unable to cannulate the femoral artery, however able to access the femoral vein a triple-lumen catheter most of the infusions are incompatible with each other, dialysis is not performed due to unstable situation and condition, urine output remains very minimal, Keofeed to be started heparin to be continued monitor hemoglobin closely, critical care time spent 45 minutes including procedure, Patient was intubated last night due to severe tachypnea and tachycardia and intermittent runs of the V. tach along with atrial fibrillation, patient has been initiated amiodarone drip as well, given that ABG could not be obtained venous blood gases are being used 11/10/2018, patient seen eval reexamined during the rounds clinically patient has a not much change from baseline has been transfused 1 unit of packed RBC patient to has been more lethargic but readily arousable arterial blood gas couldn't be obtained a venous blood gas has been performed continued to show respiratory acidosis combined with metabolic acidosis, patient is due for dialysis today also been planned for EGD which has been performed some gastritis has been noted with some white patches suggestive of ischemic changes cannot be excluded for details please refer to EGD note, patient remains on 7 mics of levo fed which is to be titrated down as blood pressure has improved, we will do low-dose bicarb drip as well patient did receive a dose of desmopressin earlier this morning, patient remains on BiPAP 15/10 with the FiO2 to keep saturation over 90-94%, patient remain somnolent and lethargic but readily arousable respond appropriately when awake then goes right back to sleep , patient did receive a dose of Xanax 11/08/2018, patient seen eval reexamined during the rounds clinically patient remains marginal continue require vasopressors currently patient is on 19 mics of levo fed drip, during dialysis patient had episode of the tachyarrhythmia requiring amiodarone now patient after the initial IV boluses back to sinus rhythm, hemodynamic status is overall stable but marginal, urine output remains very low, patient did tolerate the hemodialysis fairly well earlier this morning except the findings as noted to more old bleeding noted it appears to be old blood, patient is currently on desmopressin drip, also has been infused with 1 unit of packed RBC, heparin drip has been on hold since yesterday, vascular surgery has been consulted for evaluation of IVC filter as patient has deep venous thrombosis right lower extremity, sugars continue to be run on the higher side remains on insulin drip, patient is on proton pump inhibitor IV with frequent monitoring with monitoring observation her hemoglobin him to keep hemoglobin over 7 no active bleeding however has been noted by GI services has been consulted as well for GI bleed, Estrace standpoint tolerating BiPAP very well currently patient is on BiPAP with 12 of BiPAP the and 5 EPAP respiratory rate is 22 her spontaneous tidal volumes ranging in mid 400 range, she is on 40 % oxygen, arterial blood gas couldn't be drawn, labs medications and radiographic studies reviewed culture results are reviewed as well no positive cultures been seen patient remains on Zosyn, critical care time spent 35 minutes 11/07/2018, patient seen and evaluated examined during the rounds this morning critical care time spent 40 minutes, patient has removed to the ICU from medical floor as she was hypotensive with poor urine output in addition patient has been more somnolent and lethargic she did have receive a dose of Xanax on the floor, after arrival in ICU patient remains very hypotensive with tachycardia was given multiple fluid boluses to improve the hemodynamics however eventually starting the levo fed drip, patient does have 2 peripheral IVs one of them is not functioning very well, worsening of renal function has been noted the renal services planning to do hemodialysis, patient has very poor peripheral arterial disease unable to obtain ABG in addition to that very poor peripheral pulses are present, patient is arousable opens eyes follow simple commands but remains very anxious and agitated, patient eventually went up to 25 mics of levo fed drip with a systolic blood pressure ranging about 100 210, urine output has been very minimal, given that the lack of ability of IV axis will proceed with a central line however patient needed dialysis port as well will do a trilysis catheter (hemodialysis catheter with extra port), care plan discussed with the vascular surgery as well and renal services planning to do hemodialysis later on today provided hemodynamics remain stable, due to anticipated profound metabolic acidosis patient has been started on bicarb drip , patient is being kept on IV Zosyn heparin has been on hold due to procedures as well as elevated PTT labs reviewed medications reviewed radiographic studies reviewed as well 11/06/2018, patient seen eval examined during the rounds clinically patient has a been doing relatively better in terms of shortness of breath and swelling of the lower extremity patient is currently on room air however renal function continued to go up slightly and Lasix dose is being adjusted by renal service labs reviewed medications reviewed for now we'll continue IV heparin hopefully next 24-48 hours we'll switch it to oral anticoagulants 11/05/2018, patient seen eval reexamined during the rounds clinically has been doing relatively better in terms of breathing leg swelling the lower extremity is slightly better patient is on anticoagulation with IV heparin for DVT thrombosis of lower extremity on the right side also probable pulmonary embolism as well Patient presented to the hospital with worsening dyspnea and edema. Patient states she's been getting progressively short of breath over the last 1 week. She initially thought it was asthma but the symptoms did not improve with nebulized treatments. She also noticed edema in her legs. She states she does not take any diuretics at home. She admits to good urine output. No hematuria or dysuria. No vomiting or diarrhea. Oral intake has been fair. Denies use of NSAIDs. Chest CT revealed bilateral pleural effusions. Echocardiogram revealed ejection fraction of 35-40% with severe pulmonary hypertension. Currently maintained on Lasix 40 mg IV twice daily. She has been voiding. No fever or chills. Her duplex ultrasound of the lower extremity came back positive for DVT patient is now being started on IV heparin Objective - Vital Signs Vital signs: Vital Signs Temp 98.0 F 11/12/18 04:00 Pulse 66 11/12/18 08:35 Resp 20 11/12/18 08:00 BP 123/44 11/12/18 07:00 Pulse Ox 100 11/12/18 06:00 Intake & Output 11/11/18 11/12/18 11/12/18 18:59 06:59 18:59 Intake Total 4170.542 7016.985 188.886 Output Total 0 12 5 Balance 2399.388 8786.985 183.886 Weight 120.7 kg Intake: IV 600 915 160 0.9 NACL 600 600 100 Dextrose 5% in Water 1, 315 60 000 ml @ 30 mls/hr IV . Q24H [facility] with Sodium Bicarb (1 Meq/ml) 100 ml Rx#:[id number] Intake, IV Titration 1073.970 232.985 28.886 Amount Amiodarone 450 mg In 250 Dextrose 5% in Water 250 ml @ 1 MG/MIN 33.33 mls/ hr IV .Q7H31M [facility] Rx#: [id number] Heparin Sod,Pork in 0.45% 278.747 NaCl 25,000 unit In 0.45 % NaCl 1 250ml.bag @ 8.45 UNITS/KG/HR 9.97 mls/hr IV .Q24H [facility] Rx#: [id number] Insulin Regular 100 unit 44.566 13.435 In Sodium Chloride 0.9% 100 ml @ Per Protocol IV .Q0M [facility] Rx#:[id number] Norepinephrine 16 mg In 149.523 188.419 15.451 Sodium Chloride 0.9% 250 ml @ Titrate IV .Q0M [facility] Rx#:[id number] Piperacillin-Tazobactam 3 100 .375 gm In Sodium Chloride 0.9% 100 ml @ 25 mls/hr IVPB Q12HR [facility] Rx #:[id number] Propofol 1,000 mg In 295.7 Empty Bag 1 bag @ Titrate IV .Q0M [facility] Rx#: [id number] Oral 0 Other 150 Output: Urine 0 12 4 Stool 1 Other: Voiding Method Indwelling Catheter Indwelling Catheter Indwelling Catheter # Voids 0 - Exam - Constitutional General appearance: disheveled, mild distress, morbidly obese, intermittently anxious and agitated now relatively more comfortable on full ventilator support - Neck Neck: normal ROM Carotids: bilateral: upstroke normal Thyroid: bilateral: normal size - Respiratory Respiratory: bilateral: CTA, few basal rales, negative: diminished, dullness - Cardiovascular Rhythm: regular Heart sounds: normal: S1, S2 - Integumentary Integumentary: normal turgor Abdomen soft - Neurologic Neurologic: CNII-XII intact - Musculoskeletal Musculoskeletal: Moving all 4 extremity good tone in all 4 extremity, peripheral acral cyanosis in the toes and the fingertips noted as dictated above - Psychiatric Psychiatric: A&O x's 2, in appropriate affect, at times become anxious and agitated and combative - Labs CBC & Chem 7: 11/12/18 05:13 11/12/18 05:13 Labs: Abnormal Lab Results - Last 24 Hours (Table) 11/11/18 11/11/18 11/11/18 Range/Units 17:10 20:17 23:00 WBC (3.8-10.6) k/uL RBC (3.80-5.40) m/uL Hgb (11.4-16.0) gm/dL Hct (34.0-46.0) % MCHC (31.0-37.0) g/dL RDW (11.5-15.5) % PT (9.0-12.0) sec INR (<1.2) APTT 59.4 H (22.0-30.0) sec ABG pH (7.35-7.45) ABG pCO2 (35-45) mmHg ABG pO2 (83-108) mmHg ABG O2 Saturation (94-97) % Sodium (137-145) mmol/L Carbon Dioxide (22-30) mmol/L BUN (7-17) mg/dL Creatinine (0.52-1.04) mg/dL Glucose (74-99) mg/dL POC Glucose (mg/dL) 166 H 320 H (75-99) mg/dL Calcium (8.4-10.2) mg/dL Phosphorus (2.5-4.5) mg/dL AST (14-36) U/L ALT (9-52) U/L Alkaline Phosphatase (38-126) U/L Total Protein (6.3-8.2) g/dL Albumin (3.5-5.0) g/dL 11/12/18 11/12/18 11/12/18 Range/Units 00:06 01:13 01:57 WBC (3.8-10.6) k/uL RBC (3.80-5.40) m/uL Hgb (11.4-16.0) gm/dL Hct (34.0-46.0) % MCHC (31.0-37.0) g/dL RDW (11.5-15.5) % PT (9.0-12.0) sec INR (<1.2) APTT (22.0-30.0) sec ABG pH (7.35-7.45) ABG pCO2 (35-45) mmHg ABG pO2 (83-108) mmHg ABG O2 Saturation (94-97) % Sodium (137-145) mmol/L Carbon Dioxide (22-30) mmol/L BUN (7-17) mg/dL Creatinine (0.52-1.04) mg/dL Glucose (74-99) mg/dL POC Glucose (mg/dL) 362 H 291 H 310 H (75-99) mg/dL Calcium (8.4-10.2) mg/dL Phosphorus (2.5-4.5) mg/dL AST (14-36) U/L ALT (9-52) U/L Alkaline Phosphatase (38-126) U/L Total Protein (6.3-8.2) g/dL Albumin (3.5-5.0) g/dL 11/12/18 11/12/18 11/12/18 Range/Units 02:29 02:35 03:15 WBC (3.8-10.6) k/uL RBC (3.80-5.40) m/uL Hgb (11.4-16.0) gm/dL Hct (34.0-46.0) % MCHC (31.0-37.0) g/dL RDW (11.5-15.5) % PT (9.0-12.0) sec INR (<1.2) APTT (22.0-30.0) sec ABG pH (7.35-7.45) ABG pCO2 (35-45) mmHg ABG pO2 (83-108) mmHg ABG O2 Saturation (94-97) % Sodium 132 L (137-145) mmol/L Carbon Dioxide 21 L (22-30) mmol/L BUN 56 H (7-17) mg/dL Creatinine 5.45 H (0.52-1.04) mg/dL Glucose 313 H (74-99) mg/dL POC Glucose (mg/dL) 295 H 309 H (75-99) mg/dL Calcium 6.7 L (8.4-10.2) mg/dL Phosphorus (2.5-4.5) mg/dL AST 1473 H (14-36) U/L ALT 1892 H (9-52) U/L Alkaline Phosphatase 147 H (38-126) U/L Total Protein 4.2 L (6.3-8.2) g/dL Albumin 2.1 L (3.5-5.0) g/dL 11/12/18 11/12/18 11/12/18 Range/Units 04:55 05:03 05:13 WBC 12.5 H (3.8-10.6) k/uL RBC 2.89 L (3.80-5.40) m/uL Hgb 8.6 L (11.4-16.0) gm/dL Hct 28.4 L (34.0-46.0) % MCHC 30.2 L (31.0-37.0) g/dL RDW 18.8 H (11.5-15.5) % PT (9.0-12.0) sec INR (<1.2) APTT (22.0-30.0) sec ABG pH 7.19 L* (7.35-7.45) ABG pCO2 59 H (35-45) mmHg ABG pO2 46 L* (83-108) mmHg ABG O2 Saturation 72.1 L (94-97) % Sodium (137-145) mmol/L Carbon Dioxide (22-30) mmol/L BUN (7-17) mg/dL Creatinine (0.52-1.04) mg/dL Glucose (74-99) mg/dL POC Glucose (mg/dL) 249 H (75-99) mg/dL Calcium (8.4-10.2) mg/dL Phosphorus (2.5-4.5) mg/dL AST (14-36) U/L ALT (9-52) U/L Alkaline Phosphatase (38-126) U/L Total Protein (6.3-8.2) g/dL Albumin (3.5-5.0) g/dL 11/12/18 11/12/18 11/12/18 Range/Units 05:13 05:13 06:00 WBC (3.8-10.6) k/uL RBC (3.80-5.40) m/uL Hgb (11.4-16.0) gm/dL Hct (34.0-46.0) % MCHC (31.0-37.0) g/dL RDW (11.5-15.5) % PT 12.7 H (9.0-12.0) sec INR 1.2 H (<1.2) APTT (22.0-30.0) sec ABG pH (7.35-7.45) ABG pCO2 (35-45) mmHg ABG pO2 (83-108) mmHg ABG O2 Saturation (94-97) % Sodium 132 L (137-145) mmol/L Carbon Dioxide 21 L (22-30) mmol/L BUN 56 H (7-17) mg/dL Creatinine 5.37 H (0.52-1.04) mg/dL Glucose 269 H (74-99) mg/dL POC Glucose (mg/dL) 149 H (75-99) mg/dL Calcium 6.8 L (8.4-10.2) mg/dL Phosphorus 6.0 H (2.5-4.5) mg/dL AST 1475 H (14-36) U/L ALT 1957 H (9-52) U/L Alkaline Phosphatase 150 H (38-126) U/L Total Protein 4.4 L (6.3-8.2) g/dL Albumin 2.2 L (3.5-5.0) g/dL 11/12/18 11/12/18 11/12/18 Range/Units 06:40 07:02 08:14 WBC (3.8-10.6) k/uL RBC (3.80-5.40) m/uL Hgb (11.4-16.0) gm/dL Hct (34.0-46.0) % MCHC (31.0-37.0) g/dL RDW (11.5-15.5) % PT (9.0-12.0) sec INR (<1.2) APTT 56.4 H (22.0-30.0) sec ABG pH (7.35-7.45) ABG pCO2 (35-45) mmHg ABG pO2 (83-108) mmHg ABG O2 Saturation (94-97) % Sodium (137-145) mmol/L Carbon Dioxide (22-30) mmol/L BUN (7-17) mg/dL Creatinine (0.52-1.04) mg/dL Glucose (74-99) mg/dL POC Glucose (mg/dL) 249 H 220 H (75-99) mg/dL Calcium (8.4-10.2) mg/dL Phosphorus (2.5-4.5) mg/dL AST (14-36) U/L ALT (9-52) U/L Alkaline Phosphatase (38-126) U/L Total Protein (6.3-8.2) g/dL Albumin (3.5-5.0) g/dL Microbiology - Last 24 Hours (Table) 11/07/18 00:04 Blood Culture - Preliminary Blood No Growth after 120 hours 11/11/18 04:15 Gram Stain - Preliminary Sputum Sputum Culture - Preliminary Assessment and Plan Assessment: Acute on chronic renal failure and anuric Runs of the atrial fibrillation along with wide complex tachycardia, now patient is back in sinus rhythm Acute respiratory failure multifactorial due to profound metabolic acidosis along with arrhythmia and congestive heart failure likely biventricular failure and pulmonary embolism Severe sepsis on broad-spectrum antibiotics, possible right lower lobe pneumonia cannot be excluded less likely aspiration related as patient has a good gag flex GI bleed of unclear source status post blood transfusion, hemoglobin has been stable now no evidence of active bleeding has been seen Altered mental status and metabolic encephalopathy likely multifactorial related to renal failure Deep venous thrombosis of right lower extremity and possible pulmonary embolism 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 Small bilateral pleural effusion more so on the right side compared to left side Acute blood loss anemia Plan: Anticoagulation currently is being resumed in the form of IV heparin, tolerating it fairly well We will defer placement of IVC filter to vascular surgery Continue daily hemodialysis as tolerated Blood transfusion as needed keep hemoglobin over 7 Optimize therapy for heart failure Monitor renal functions closely Further recommendations pending plan of care as per clinical response of the patient Bicarb drip low-dose to be reinitiated due to vasa spasm and cyanotic changes into the toes Taper levo fed drip as tolerated Taper oxygen down to 35-40% next 24-48 hours Start to tube feed As per discussion with the it appears that altered mental status is not new and has been present for over a month, and as renal functions have been progressively getting worse patient's mental status was worsening with development of confusion. Patient however remains very awake respond appropriately with intermittent episodes of confusion when addressed directly long-term prognosis poor Time with Patient: Greater than 30
[2018-11-12] MEDS: AMIODARONE 200 MG TAB PO SCH ×2 (08:59→21:19)
[2018-11-12] MEDS: PANTOPRAZOLE 40 MG/10 ML VIAL IV SCH ×2 (09:00→21:06)
[2018-11-12] MEDS: PIPERACILLIN-TAZOBACTAM 3.375 GM in SODIUM CHLORIDE 0.9% 100 ML IVPB SCH ×2 (09:00→23:06)
[2018-11-12] MEDS: ASPIRIN 81 MG PO SCH (09:00)
[2018-11-12] MEDS: NICOTINE 21MG/24HR PATCH TRANSDERM SCH (09:01)
[2018-11-12] MEDS: FERROUS SULFATE 325 MG TAB PO SCH (09:06)
[2018-11-12] MEDS: PROPOFOL 1,000 MG in EMPTY BAG 1 BAG IV SCH ×2 (09:25→21:17)
[2018-11-12] MEDS: NOREPINEPHRINE 16 MG in SODIUM CHLORIDE 0.9% 250 ML IV SCH (09:48)
[2018-11-12] MEDS: CHLORHEXIDINE GLUCONATE 15 ML CUP MUCOUS MEM SCH ×2 (09:50→21:19)
[2018-11-12 09:52] LABS: Glucose,Whole Blood 217 mg/dL (75-99)
[2018-11-12 10:21] LABS: Glucose,Whole Blood 190 mg/dL (75-99)
[2018-11-12] MEDS: HEPARIN SOD,PORK IN 0.45% NACL 25,000 UNIT in 0.45% NACL 1 250ML.BAG IV SCH (10:55)
[2018-11-12 11:14] LABS: Glucose,Whole Blood 193 mg/dL (75-99)
--- NOTE | 2018-11-12 11:54 | P.PN ---
Subjective Progress Note Date: 11/12/18 Seen and examined for the follow-up of acute kidney injury. Still oliguric. Still on ventilator with 65% FiO2. Also on 20 mics of Levophed. Objective - Vital Signs Vital signs: Vital Signs Temp 98.0 F 11/12/18 04:00 Pulse 66 11/12/18 08:35 Resp 20 11/12/18 08:00 BP 123/44 11/12/18 07:00 Pulse Ox 100 11/12/18 06:00 Intake & Output 11/11/18 11/12/18 11/12/18 18:59 06:59 18:59 Intake Total 8928.504 7935.985 247.590 Output Total 0 12 7 Balance 1166.294 2379.985 240.590 Weight 120.7 kg Intake: IV 600 915 160 0.9 NACL 600 600 100 Dextrose 5% in Water 1, 315 60 000 ml @ 30 mls/hr IV . Q24H [facility] with Sodium Bicarb (1 Meq/ml) 100 ml Rx#:[id number] Intake, IV Titration 1073.970 332.985 87.590 Amount Amiodarone 450 mg In 250 Dextrose 5% in Water 250 ml @ 1 MG/MIN 33.33 mls/ hr IV .Q7H31M [facility] Rx#: [id number] Heparin Sod,Pork in 0.45% 278.747 NaCl 25,000 unit In 0.45 % NaCl 1 250ml.bag @ 8.45 UNITS/KG/HR 9.97 mls/hr IV .Q24H [facility] Rx#: [id number] Insulin Regular 100 unit 44.566 26.009 In Sodium Chloride 0.9% 100 ml @ Per Protocol IV .Q0M [facility] Rx#:[id number] Norepinephrine 16 mg In 149.523 188.419 61.581 Sodium Chloride 0.9% 250 ml @ Titrate IV .Q0M [facility] Rx#:[id number] Piperacillin-Tazobactam 3 100 .375 gm In Sodium Chloride 0.9% 100 ml @ 25 mls/hr IVPB Q12HR [facility] Rx #:[id number] Propofol 1,000 mg In 295.7 100 Empty Bag 1 bag @ Titrate IV .Q0M [facility] Rx#: [id number] Oral 0 Other 150 Output: Urine 0 12 6 Stool 1 Other: Voiding Method Indwelling Catheter Indwelling Catheter Indwelling Catheter # Voids 0 - Exam No acute distress on ventilator S1-S2 heard Basal crackles Edema. - Labs CBC & Chem 7: 11/12/18 05:13 11/12/18 05:13 Labs: Abnormal Lab Results - Last 24 Hours (Table) 11/11/18 11/11/18 11/11/18 Range/Units 17:10 20:17 23:00 WBC (3.8-10.6) k/uL RBC (3.80-5.40) m/uL Hgb (11.4-16.0) gm/dL Hct (34.0-46.0) % MCHC (31.0-37.0) g/dL RDW (11.5-15.5) % PT (9.0-12.0) sec INR (<1.2) APTT 59.4 H (22.0-30.0) sec ABG pH (7.35-7.45) ABG pCO2 (35-45) mmHg ABG pO2 (83-108) mmHg ABG O2 Saturation (94-97) % Sodium (137-145) mmol/L Carbon Dioxide (22-30) mmol/L BUN (7-17) mg/dL Creatinine (0.52-1.04) mg/dL Glucose (74-99) mg/dL POC Glucose (mg/dL) 166 H 320 H (75-99) mg/dL Calcium (8.4-10.2) mg/dL Phosphorus (2.5-4.5) mg/dL AST (14-36) U/L ALT (9-52) U/L Alkaline Phosphatase (38-126) U/L Total Protein (6.3-8.2) g/dL Albumin (3.5-5.0) g/dL 11/12/18 11/12/18 11/12/18 Range/Units 00:06 01:13 01:57 WBC (3.8-10.6) k/uL RBC (3.80-5.40) m/uL Hgb (11.4-16.0) gm/dL Hct (34.0-46.0) % MCHC (31.0-37.0) g/dL RDW (11.5-15.5) % PT (9.0-12.0) sec INR (<1.2) APTT (22.0-30.0) sec ABG pH (7.35-7.45) ABG pCO2 (35-45) mmHg ABG pO2 (83-108) mmHg ABG O2 Saturation (94-97) % Sodium (137-145) mmol/L Carbon Dioxide (22-30) mmol/L BUN (7-17) mg/dL Creatinine (0.52-1.04) mg/dL Glucose (74-99) mg/dL POC Glucose (mg/dL) 362 H 291 H 310 H (75-99) mg/dL Calcium (8.4-10.2) mg/dL Phosphorus (2.5-4.5) mg/dL AST (14-36) U/L ALT (9-52) U/L Alkaline Phosphatase (38-126) U/L Total Protein (6.3-8.2) g/dL Albumin (3.5-5.0) g/dL 11/12/18 11/12/18 11/12/18 Range/Units 02:29 02:35 03:15 WBC (3.8-10.6) k/uL RBC (3.80-5.40) m/uL Hgb (11.4-16.0) gm/dL Hct (34.0-46.0) % MCHC (31.0-37.0) g/dL RDW (11.5-15.5) % PT (9.0-12.0) sec INR (<1.2) APTT (22.0-30.0) sec ABG pH (7.35-7.45) ABG pCO2 (35-45) mmHg ABG pO2 (83-108) mmHg ABG O2 Saturation (94-97) % Sodium 132 L (137-145) mmol/L Carbon Dioxide 21 L (22-30) mmol/L BUN 56 H (7-17) mg/dL Creatinine 5.45 H (0.52-1.04) mg/dL Glucose 313 H (74-99) mg/dL POC Glucose (mg/dL) 295 H 309 H (75-99) mg/dL Calcium 6.7 L (8.4-10.2) mg/dL Phosphorus (2.5-4.5) mg/dL AST 1473 H (14-36) U/L ALT 1892 H (9-52) U/L Alkaline Phosphatase 147 H (38-126) U/L Total Protein 4.2 L (6.3-8.2) g/dL Albumin 2.1 L (3.5-5.0) g/dL 11/12/18 11/12/18 11/12/18 Range/Units 04:55 05:03 05:13 WBC 12.5 H (3.8-10.6) k/uL RBC 2.89 L (3.80-5.40) m/uL Hgb 8.6 L (11.4-16.0) gm/dL Hct 28.4 L (34.0-46.0) % MCHC 30.2 L (31.0-37.0) g/dL RDW 18.8 H (11.5-15.5) % PT (9.0-12.0) sec INR (<1.2) APTT (22.0-30.0) sec ABG pH 7.19 L* (7.35-7.45) ABG pCO2 59 H (35-45) mmHg ABG pO2 46 L* (83-108) mmHg ABG O2 Saturation 72.1 L (94-97) % Sodium (137-145) mmol/L Carbon Dioxide (22-30) mmol/L BUN (7-17) mg/dL Creatinine (0.52-1.04) mg/dL Glucose (74-99) mg/dL POC Glucose (mg/dL) 249 H (75-99) mg/dL Calcium (8.4-10.2) mg/dL Phosphorus (2.5-4.5) mg/dL AST (14-36) U/L ALT (9-52) U/L Alkaline Phosphatase (38-126) U/L Total Protein (6.3-8.2) g/dL Albumin (3.5-5.0) g/dL 11/12/18 11/12/18 11/12/18 Range/Units 05:13 05:13 06:00 WBC (3.8-10.6) k/uL RBC (3.80-5.40) m/uL Hgb (11.4-16.0) gm/dL Hct (34.0-46.0) % MCHC (31.0-37.0) g/dL RDW (11.5-15.5) % PT 12.7 H (9.0-12.0) sec INR 1.2 H (<1.2) APTT (22.0-30.0) sec ABG pH (7.35-7.45) ABG pCO2 (35-45) mmHg ABG pO2 (83-108) mmHg ABG O2 Saturation (94-97) % Sodium 132 L (137-145) mmol/L Carbon Dioxide 21 L (22-30) mmol/L BUN 56 H (7-17) mg/dL Creatinine 5.37 H (0.52-1.04) mg/dL Glucose 269 H (74-99) mg/dL POC Glucose (mg/dL) 149 H (75-99) mg/dL Calcium 6.8 L (8.4-10.2) mg/dL Phosphorus 6.0 H (2.5-4.5) mg/dL AST 1475 H (14-36) U/L ALT 1957 H (9-52) U/L Alkaline Phosphatase 150 H (38-126) U/L Total Protein 4.4 L (6.3-8.2) g/dL Albumin 2.2 L (3.5-5.0) g/dL 11/12/18 11/12/18 11/12/18 Range/Units 06:40 07:02 08:14 WBC (3.8-10.6) k/uL RBC (3.80-5.40) m/uL Hgb (11.4-16.0) gm/dL Hct (34.0-46.0) % MCHC (31.0-37.0) g/dL RDW (11.5-15.5) % PT (9.0-12.0) sec INR (<1.2) APTT 56.4 H (22.0-30.0) sec ABG pH (7.35-7.45) ABG pCO2 (35-45) mmHg ABG pO2 (83-108) mmHg ABG O2 Saturation (94-97) % Sodium (137-145) mmol/L Carbon Dioxide (22-30) mmol/L BUN (7-17) mg/dL Creatinine (0.52-1.04) mg/dL Glucose (74-99) mg/dL POC Glucose (mg/dL) 249 H 220 H (75-99) mg/dL Calcium (8.4-10.2) mg/dL Phosphorus (2.5-4.5) mg/dL AST (14-36) U/L ALT (9-52) U/L Alkaline Phosphatase (38-126) U/L Total Protein (6.3-8.2) g/dL Albumin (3.5-5.0) g/dL Microbiology - Last 24 Hours (Table) 11/07/18 00:04 Blood Culture - Preliminary Blood No Growth after 120 hours 11/11/18 04:15 Gram Stain - Preliminary Sputum Sputum Culture - Preliminary Assessment and Plan Assessment: #1 nonoliguric acute kidney injury, currently dialysis dependent secondary to hemodynamic ATN. 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 #4 volume overload. #5 hypervolemic hyponatremia #6 metabolic acidosis Plan: #1 hemodialysis today with 1500 ML's of ultrafiltration. #2 strict ins and outs, monitor for renal recovery. #3 plan dialysis again on Wednesday based on urine output and electrolytes.
[2018-11-12 12:17] LABS: Glucose,Whole Blood 124 mg/dL (75-99)
[2018-11-12 13:05] LABS: Glucose,Whole Blood 123 mg/dL (75-99)
[2018-11-12] MEDS ORDERED: PROPOFOL 10 MG/ML 100 ML VIAL IV ONE ×2 (13:15→17:00)
[2018-11-12 18:46] LABS: Glucose,Whole Blood 113 mg/dL (75-99)
[2018-11-12 18:46] LABS: Glucose,Whole Blood 81 mg/dL (75-99)
[2018-11-12 18:46] LABS: Glucose,Whole Blood 91 mg/dL (75-99)
[2018-11-12 18:47] LABS: Glucose,Whole Blood 124 mg/dL (75-99)
[2018-11-12 18:47] LABS: Glucose,Whole Blood 128 mg/dL (75-99)
[2018-11-12] MEDS: METOPROLOL SUCCINATE (ER) 50 MG TAB.ER.24H PO SCH (19:00)
[2018-11-12 19:16] LABS: Glucose,Whole Blood 180 mg/dL (75-99)
[2018-11-12 20:11] LABS: Glucose,Whole Blood 127 mg/dL (75-99)
[2018-11-12 21:17] LABS: Glucose,Whole Blood 155 mg/dL (75-99)
[2018-11-12] MEDS: MONTELUKAST 10 MG TAB PO SCH (21:19)
[2018-11-12] MEDS: PRAVASTATIN SODIUM 20 MG TAB PO SCH (21:19)
[2018-11-12] MEDS: DEXTROSE 5% IN WATER 1,000 ML with SODIUM BICARB (1 MEQ/ML) 100 ML IV SCH (21:20)
[2018-11-12 22:29] LABS: Glucose,Whole Blood 179 mg/dL (75-99)
[2018-11-12 23:08] LABS: Glucose,Whole Blood 149 mg/dL (75-99)
[2018-11-13 00:20] LABS: Glucose,Whole Blood 155 mg/dL (75-99)
[2018-11-13 01:13] LABS: Glucose,Whole Blood 176 mg/dL (75-99)
[2018-11-13 02:19] LABS: Glucose,Whole Blood 156 mg/dL (75-99)
[2018-11-13] MEDS: NOREPINEPHRINE 16 MG in SODIUM CHLORIDE 0.9% 250 ML IV SCH (02:20)
[2018-11-13] MEDS: PROPOFOL 1,000 MG in EMPTY BAG 1 BAG IV SCH ×4 (02:21→19:19)
--- NOTE | 2018-11-13 02:51 | PN ---
PROGRESS NOTE DATE OF SERVICE: 11/12/2018 REASON FOR FOLLOWUP VISIT: Aspiration pneumonia. INTERVAL HISTORY: The patient is currently afebrile. The patient is hemodynamically stable. Her pressor support has come down to about 15 mics of Levophed compared to 28 mics yesterday. The patient was dialyzed with removal of 1.5 L of fluid. The patient has been started on tube feeds, tolerating so far. Remains to be sedated on the vent. PHYSICAL EXAMINATION: Blood pressure is 122/46, pulse of 66, temperature 97.9. She is 100% on 45% FiO2. GENERAL DESCRIPTION: A middle aged female lying in bed in no distress. RESPIRATORY SYSTEM: Unlabored breathing with decreased breath sounds in the bases. No wheeze. HEART: S1, S2. Regular rate and rhythm. ABDOMEN: Soft, no tenderness. LABS: Hemoglobin is 8.6, white count 12.5, BUN 56, creatinine 5.27. Blood culture has been negative. Repeat sputum culture currently pending. DIAGNOSTIC IMPRESSION AND PLAN: Patient with acute respiratory failure which is likely multifactorial in this patient with possible component of pneumonia. The patient is currently covered with [employer], to continue while watching the clinical course closely. Family was present at bedside. Multiple questions were answered. Continue supportive care. MMODL / IJN: [id number] /
[2018-11-13 03:32] LABS: Glucose,Whole Blood 175 mg/dL (75-99)
[2018-11-13 04:21] LABS: Glucose,Whole Blood 189 mg/dL (75-99)
[2018-11-13 05:12] LABS: Glucose,Whole Blood 174 mg/dL (75-99)
[2018-11-13 06:06] LABS: Albumin 1.9 g/dL (3.5-5.0); Calcium 6.8 mg/dL (8.4-10.2); Magnesium 2.1 mg/dL (1.6-2.3); Phosphorus 3.9 mg/dL (2.5-4.5); Potassium 3.4 mmol/L (3.5-5.1); Total Bilirubin 0.9 mg/dL (0.2-1.3)
[2018-11-13 06:12] LABS: Glucose,Whole Blood 151 mg/dL (75-99)
[2018-11-13 06:51] LABS: Anisocytosis Slight; Basophils # (A) 0.1 k/uL (0-0.2); Basophils % (A) 1 %; Eosinophils # (A) 0.3 k/uL (0-0.7); Eosinophils % (A) 3 %; HCT 27.4 % (34.0-46.0); HGB 8.5 gm/dL (11.4-16.0); Hypochromasia Marked; Lymphocytes # (A) 1.6 k/uL (1.0-4.8); Lymphocytes % (A) 15 %; MCH 29.8 pg (25.0-35.0); MCV 96.2 fL (80.0-100.0); Macrocytosis Slight; Mean Platelet Volume 8.3; Monocytes # (A) 0.3 k/uL (0-1.0); Monocytes % (A) 3 %; Neutrophils # (A) 8.5 k/uL (1.3-7.7); Neutrophils % (A) 78 %; Platelet Count 135 k/uL (150-450); Poikilocytosis Slight; RBC 2.84 m/uL (3.80-5.40); RDW 18.7 % (11.5-15.5); WBC 10.9 k/uL (3.8-10.6)
--- NOTE | 2018-11-13 07:05 | XR ---
EXAMINATION TYPE: XR chest 1V portable DATE OF EXAM: 11/13/2018 HISTORY: Tube placement. REFERENCE: Previous study dated 11/12/2018. FINDINGS: There has been a midline sternotomy. An NG tube and ET tube remain in place, unchanged in a ppearance. There is bibasilar airspace disease. There are small, bilateral effusions heart size is upper limits of normal. IMPRESSION: NO SIGNIFICANT INTERVAL CHANGE IN THE APPEARANCE OF THE CHEST.
[2018-11-13 07:11] LABS: Glucose,Whole Blood 137 mg/dL (75-99)
--- NOTE | 2018-11-13 07:54 | P.PN ---
Subjective Progress Note Date: 11/13/18 Principal diagnosis: CHF/cardiomyopathy This is a pleasant 58-year-old female patient with an extensive past medical history for her age consistent of coronary artery disease, peripheral arterial disease, diabetes, hypertension, dyslipidemia, and chronic kidney disease, was admitted to the hospital with chest discomfort and was ruled in for acute non- ST patient myocardial infarction and also with congestive heart failure secondary to systolic dysfunction. The patient was treated medically for the non-STEMI The echocardiogram revealed impaired LV function with EF of 35%, mild aortic stenosis, severe pulmonary hypertension, and moderate tricuspid regurgitation. I'll follow-up with the patient today, 11/13/2018, the patient continues to be intubated and continues to be on ventilator. Hemodynamically she continues to be on norepinephrine but the dose has been coming down. She continues to be in normal sinus mechanism and currently she is on amiodarone by mouth. She is also on anticoagulation with heparin. Objective - Vital Signs Vital signs: Vital Signs Temp 97.9 F 11/13/18 04:00 Pulse 64 11/13/18 07:00 Resp 20 11/13/18 07:00 BP 117/51 11/13/18 07:00 Pulse Ox 100 11/13/18 07:00 Intake & Output 11/12/18 11/13/18 11/13/18 18:59 06:59 18:59 Intake Total 1258.608 6080.888 82.226 Output Total 12 12 0 Balance 1575.954 5021.888 82.226 Weight 123.1 kg Intake: IV 880 915 80 0.9 NACL 550 555 50 Dextrose 5% in Water 1, 330 360 30 000 ml @ 30 mls/hr IV . Q24H [facility] with Sodium Bicarb (1 Meq/ml) 100 ml Rx#:[id number] Intake, IV Titration 338.213 817.888 2.226 Amount Heparin Sod,Pork in 0.45% 165.17 195.578 NaCl 25,000 unit In 0.45 % NaCl 1 250ml.bag @ 8.45 UNITS/KG/HR 9.97 mls/hr IV .Q24H [facility] Rx#: [id number] Insulin Regular 100 unit 36.462 37.181 2.226 In Sodium Chloride 0.9% 100 ml @ Per Protocol IV .Q0M [facility] Rx#:[id number] Norepinephrine 16 mg In 61.581 299.275 Sodium Chloride 0.9% 250 ml @ Titrate IV .Q0M [facility] Rx#:[id number] Piperacillin-Tazobactam 3 75 .375 gm In Sodium Chloride 0.9% 100 ml @ 25 mls/hr IVPB Q12HR [facility] Rx #:[id number] Propofol 1,000 mg In 285.854 Empty Bag 1 bag @ Titrate IV .Q0M [facility] Rx#: [id number] Tube Feeding 150 12 Output: Urine 9 11 0 Stool 3 1 Other: Voiding Method Indwelling Catheter Indwelling Catheter - Constitutional General appearance: Present: no acute distress - Respiratory Respiratory: bilateral: diminished - Cardiovascular Rhythm: regular Heart sounds: normal: S1, S2 - Labs CBC & Chem 7: 11/13/18 04:44 11/13/18 04:44 Labs: Abnormal Lab Results - Last 24 Hours (Table) 11/12/18 11/12/18 11/12/18 Range/Units 08:14 09:29 10:10 WBC (3.8-10.6) k/uL RBC (3.80-5.40) m/uL Hgb (11.4-16.0) gm/dL Hct (34.0-46.0) % RDW (11.5-15.5) % Plt Count (150-450) k/uL APTT (22.0-30.0) sec Sodium (137-145) mmol/L Potassium (3.5-5.1) mmol/L BUN (7-17) mg/dL Creatinine (0.52-1.04) mg/dL Glucose (74-99) mg/dL POC Glucose (mg/dL) 220 H 217 H 190 H (75-99) mg/dL Calcium (8.4-10.2) mg/dL AST (14-36) U/L ALT (9-52) U/L Alkaline Phosphatase (38-126) U/L Total Protein (6.3-8.2) g/dL Albumin (3.5-5.0) g/dL 11/12/18 11/12/18 11/12/18 Range/Units 11:02 12:53 14:23 WBC (3.8-10.6) k/uL RBC (3.80-5.40) m/uL Hgb (11.4-16.0) gm/dL Hct (34.0-46.0) % RDW (11.5-15.5) % Plt Count (150-450) k/uL APTT (22.0-30.0) sec Sodium (137-145) mmol/L Potassium (3.5-5.1) mmol/L BUN (7-17) mg/dL Creatinine (0.52-1.04) mg/dL Glucose (74-99) mg/dL POC Glucose (mg/dL) 193 H 123 H 113 H (75-99) mg/dL Calcium (8.4-10.2) mg/dL AST (14-36) U/L ALT (9-52) U/L Alkaline Phosphatase (38-126) U/L Total Protein (6.3-8.2) g/dL Albumin (3.5-5.0) g/dL 11/12/18 11/12/18 11/12/18 Range/Units 17:33 18:21 19:05 WBC (3.8-10.6) k/uL RBC (3.80-5.40) m/uL Hgb (11.4-16.0) gm/dL Hct (34.0-46.0) % RDW (11.5-15.5) % Plt Count (150-450) k/uL APTT (22.0-30.0) sec Sodium (137-145) mmol/L Potassium (3.5-5.1) mmol/L BUN (7-17) mg/dL Creatinine (0.52-1.04) mg/dL Glucose (74-99) mg/dL POC Glucose (mg/dL) 124 H 128 H 180 H (75-99) mg/dL Calcium (8.4-10.2) mg/dL AST (14-36) U/L ALT (9-52) U/L Alkaline Phosphatase (38-126) U/L Total Protein (6.3-8.2) g/dL Albumin (3.5-5.0) g/dL 11/12/18 11/12/18 11/12/18 Range/Units 19:59 21:06 22:18 WBC (3.8-10.6) k/uL RBC (3.80-5.40) m/uL Hgb (11.4-16.0) gm/dL Hct (34.0-46.0) % RDW (11.5-15.5) % Plt Count (150-450) k/uL APTT (22.0-30.0) sec Sodium (137-145) mmol/L Potassium (3.5-5.1) mmol/L BUN (7-17) mg/dL Creatinine (0.52-1.04) mg/dL Glucose (74-99) mg/dL POC Glucose (mg/dL) 127 H 155 H 179 H (75-99) mg/dL Calcium (8.4-10.2) mg/dL AST (14-36) U/L ALT (9-52) U/L Alkaline Phosphatase (38-126) U/L Total Protein (6.3-8.2) g/dL Albumin (3.5-5.0) g/dL 11/12/18 11/13/18 11/13/18 Range/Units 22:56 00:07 01:01 WBC (3.8-10.6) k/uL RBC (3.80-5.40) m/uL Hgb (11.4-16.0) gm/dL Hct (34.0-46.0) % RDW (11.5-15.5) % Plt Count (150-450) k/uL APTT (22.0-30.0) sec Sodium (137-145) mmol/L Potassium (3.5-5.1) mmol/L BUN (7-17) mg/dL Creatinine (0.52-1.04) mg/dL Glucose (74-99) mg/dL POC Glucose (mg/dL) 149 H 155 H 176 H (75-99) mg/dL Calcium (8.4-10.2) mg/dL AST (14-36) U/L ALT (9-52) U/L Alkaline Phosphatase (38-126) U/L Total Protein (6.3-8.2) g/dL Albumin (3.5-5.0) g/dL 11/13/18 11/13/18 11/13/18 Range/Units 02:06 03:20 04:10 WBC (3.8-10.6) k/uL RBC (3.80-5.40) m/uL Hgb (11.4-16.0) gm/dL Hct (34.0-46.0) % RDW (11.5-15.5) % Plt Count (150-450) k/uL APTT (22.0-30.0) sec Sodium (137-145) mmol/L Potassium (3.5-5.1) mmol/L BUN (7-17) mg/dL Creatinine (0.52-1.04) mg/dL Glucose (74-99) mg/dL POC Glucose (mg/dL) 156 H 175 H 189 H (75-99) mg/dL Calcium (8.4-10.2) mg/dL AST (14-36) U/L ALT (9-52) U/L Alkaline Phosphatase (38-126) U/L Total Protein (6.3-8.2) g/dL Albumin (3.5-5.0) g/dL 11/13/18 11/13/18 11/13/18 Range/Units 04:44 04:44 04:44 WBC 10.9 H (3.8-10.6) k/uL RBC 2.84 L (3.80-5.40) m/uL Hgb 8.5 L (11.4-16.0) gm/dL Hct 27.4 L (34.0-46.0) % RDW 18.7 H (11.5-15.5) % Plt Count 135 L (150-450) k/uL APTT 68.3 H (22.0-30.0) sec Sodium 132 L (137-145) mmol/L Potassium 3.4 L (3.5-5.1) mmol/L BUN 38 H (7-17) mg/dL Creatinine 4.10 H (0.52-1.04) mg/dL Glucose 187 H (74-99) mg/dL POC Glucose (mg/dL) (75-99) mg/dL Calcium 6.8 L (8.4-10.2) mg/dL AST 1054 H (14-36) U/L ALT 1663 H (9-52) U/L Alkaline Phosphatase 148 H (38-126) U/L Total Protein 4.0 L (6.3-8.2) g/dL Albumin 1.9 L (3.5-5.0) g/dL 11/13/18 11/13/18 11/13/18 Range/Units 05:00 06:00 07:00 WBC (3.8-10.6) k/uL RBC (3.80-5.40) m/uL Hgb (11.4-16.0) gm/dL Hct (34.0-46.0) % RDW (11.5-15.5) % Plt Count (150-450) k/uL APTT (22.0-30.0) sec Sodium (137-145) mmol/L Potassium (3.5-5.1) mmol/L BUN (7-17) mg/dL Creatinine (0.52-1.04) mg/dL Glucose (74-99) mg/dL POC Glucose (mg/dL) 174 H 151 H 137 H (75-99) mg/dL Calcium (8.4-10.2) mg/dL AST (14-36) U/L ALT (9-52) U/L Alkaline Phosphatase (38-126) U/L Total Protein (6.3-8.2) g/dL Albumin (3.5-5.0) g/dL Microbiology - Last 24 Hours (Table) 11/07/18 00:04 Blood Culture - Final Blood No Growth after 144 hours 11/11/18 04:15 Gram Stain - Preliminary Sputum Sputum Culture - Preliminary Assessment and Plan Assessment: Assessment #1 systolic congestive heart failure exacerbation #2 acute non-ST elevation myocardial infarction #3 acute on chronic renal failure #4 peripheral vascular disease #5 systemic hypertension #6 hyperkalemia Plan #1 the patient is on dialysis now #2 the right wean the patient from the vasopressors #3 continue amiodarone by mouth #4 continue heparin for anticoagulation and switch to anticoagulation by mouth down the line #5 follow-up with the patient
[2018-11-13 08:02] LABS: Band Neutrophils % 3 %; Neutrophils % (M) 82 %; Nucleated Red Blood Cells 6 /100 WBC (0-0); Total Cells Counted 100
[2018-11-13 08:04] LABS: Glucose,Whole Blood 122 mg/dL (75-99)
[2018-11-13 08:07] LABS: Eosinophils # (M) 0.12 k/uL (0-0.7); Lymphocytes # (M) 1.53 k/uL (1.0-4.8); Monocytes # (M) 0.12 k/uL (0-1.0); WBC 11.8 k/uL (3.8-10.6)
[2018-11-13 08:10] LABS: Polychromasia Present
[2018-11-13 08:11] LABS: Crenated RBC Present
[2018-11-13] MEDS: ASPIRIN 81 MG PO SCH (08:18)
[2018-11-13] MEDS: CHLORHEXIDINE GLUCONATE 15 ML CUP MUCOUS MEM SCH ×2 (08:18→20:43)
[2018-11-13] MEDS: AMIODARONE 200 MG TAB PO SCH ×2 (08:18→20:43)
[2018-11-13] MEDS: CALCIUM ACETATE 667 MG CAP PO SCH ×3 (08:18→19:18)
[2018-11-13] MEDS: FERROUS SULFATE 325 MG TAB PO SCH (08:18)
[2018-11-13] MEDS: PANTOPRAZOLE 40 MG/10 ML VIAL IV SCH ×2 (08:18→20:43)
[2018-11-13] MEDS: PIPERACILLIN-TAZOBACTAM 3.375 GM in SODIUM CHLORIDE 0.9% 100 ML IVPB SCH ×2 (08:19→20:44)
[2018-11-13] MEDS: NICOTINE 21MG/24HR PATCH TRANSDERM SCH (08:19)
[2018-11-13] MEDS: ALBUTEROL NEBULIZED 2.5 MG/3 ML INHALATION PRN ×3 (08:36→21:41)
[2018-11-13 09:19] LABS: Glucose,Whole Blood 159 mg/dL (75-99)
[2018-11-13 10:10] LABS: Glucose,Whole Blood 127 mg/dL (75-99)
--- NOTE | 2018-11-13 10:20 | P.PN ---
Subjective Progress Note Date: 11/13/18 (Critical care time 45 minutes) Principal diagnosis: Acute renal failure, altered mental status likely related to acute renal failure , hypotension, severe sepsis, hypertension, A. fib with RVR Right lower extremity venous thrombosis, chronic intermittent thromboembolism, pulmonary hypertension, biventricular failure, acute on chronic systolic heart failure, acute on chronic renal failure is stage IV, small bilateral pleural effusion likely related to heart failure, morbid obesity, suspect sleep disorder breathing and sleep apnea 11/13/2018, patient seen and evaluated examined during the rounds, patient does withdraws to pain and physical stimuli, she is sedated with propofol drip, patient is on 25 mics of propofol if lower down becomes restless less anxious and agitated, patient has been remain on heparin drip tolerating very well no evidence of bleeding has been seen, the acral cyanosis in the upper extremity appears to have improved today however in the lower extremity remains unchanged , patient is also on bicarb drip U fed drip is down to 14 mics which is gradually being titrated patient is on insulin drip 2.5 units an hour for hyperglycemia, her peak airway pressures 33 her vent settings include assist control rate of 20 breathing 20 tidal volume 505 of PEEP and 40% oxygen, her sputum culture results and reports are reviewed no growth has been noted blood cultures no growth so far, patient was able to get the hemodialysis yesterday 1.5 L of fluid has been removed, labs from today reviewed white cell count continue to go down is 10,900 hemoglobin remained stable 8.5, patient is well anticoagulated with IV heparin, platelet count remains stable but however slow decline has as been noted which is being monitored observe his 135, patient is on tube feed tolerating very well slowly been escalated, BUN/creatinine has improved to 38 and 4.1, sodium is 132, LFT continued to improve AST/ALT now in to low thousands, IV amiodarone infusion has a stab patient is now on by mouth amiodarone no new episodes of A. fib RVR or V. tach has been noted, chest x-ray remains stable, critical care time spent 45 minutes 11/12/2018, patient seen eval examined during the rounds clinically patient is slightly improved in terms of laboratory data and hemodynamic support, patient remains sedated with propofol drip currently the dose is down to 40 mics, it is down to 20 mics patient continued to manifest ischemic changes in the toes as well as in the fingertips, bicarb drip is being given to counteract severe profound metabolic peripheral acidosis, she remains on full ventilator support with assist control of 20 tidal volume of 500, PEEP of 5, FiO2 down to 65%, oxygen saturation is 100% as checked with the right ear lobe, patient is now in sinus rhythm has been in A. fib but spontaneously converted patient has been amiodarone IV which is to be switched to oral aspirin cardiovascular services, current infusions include heparin drip tolerating very well no new bleeding has been seen along with levo fed drip 20 mics, propofol drip and bicarb drip, respiratory secretions are minimal, bowel sounds are hypoactive, no evidence of bleeding has been seen patient to be started on tube feed and dialysis is being planned later on today as well as per discussion with the renal services, answers are all negative so far, chest x-ray shows right lower lobe subsegmental atelectasis small effusion which is stable, leukocytosis improved today compared to yesterday, critical care time spent 35 minutes 11/11/2018, patient seen eval examined during the rounds clinically patient remains sedated and intubated, currently patient is on now full ventilator support she is on assist control rate of 20 breathing 20 tidal volume of 505 of PEEP and 75% oxygen, patient remains on heparin drip which is has been started this morning, also on propofol drip 45 mics, levo fed drip is off 24 mics, patient does have been noted to have as a spasm in the upper extremity as well as lower extremity with bluish discoloration, patient has being restarted on heparin drip to optimize the levo fed to contract severe profound metabolic acidosis, reviewed medications reviewed care plan discussed with the staff at length, patient will need a arterial line attempted but unable to cannulate the femoral artery, however able to access the femoral vein a triple-lumen catheter most of the infusions are incompatible with each other, dialysis is not performed due to unstable situation and condition, urine output remains very minimal, Keofeed to be started heparin to be continued monitor hemoglobin closely, critical care time spent 45 minutes including procedure, Patient was intubated last night due to severe tachypnea and tachycardia and intermittent runs of the V. tach along with atrial fibrillation, patient has been initiated amiodarone drip as well, given that ABG could not be obtained venous blood gases are being used 11/10/2018, patient seen eval reexamined during the rounds clinically patient has a not much change from baseline has been transfused 1 unit of packed RBC patient to has been more lethargic but readily arousable arterial blood gas couldn't be obtained a venous blood gas has been performed continued to show respiratory acidosis combined with metabolic acidosis, patient is due for dialysis today also been planned for EGD which has been performed some gastritis has been noted with some white patches suggestive of ischemic changes cannot be excluded for details please refer to EGD note, patient remains on 7 mics of levo fed which is to be titrated down as blood pressure has improved, we will do low-dose bicarb drip as well patient did receive a dose of desmopressin earlier this morning, patient remains on BiPAP 15/10 with the FiO2 to keep saturation over 90-94%, patient remain somnolent and lethargic but readily arousable respond appropriately when awake then goes right back to sleep , patient did receive a dose of Xanax 11/08/2018, patient seen eval reexamined during the rounds clinically patient remains marginal continue require vasopressors currently patient is on 19 mics of levo fed drip, during dialysis patient had episode of the tachyarrhythmia requiring amiodarone now patient after the initial IV boluses back to sinus rhythm, hemodynamic status is overall stable but marginal, urine output remains very low, patient did tolerate the hemodialysis fairly well earlier this morning except the findings as noted to more old bleeding noted it appears to be old blood, patient is currently on desmopressin drip, also has been infused with 1 unit of packed RBC, heparin drip has been on hold since yesterday, vascular surgery has been consulted for evaluation of IVC filter as patient has deep venous thrombosis right lower extremity, sugars continue to be run on the higher side remains on insulin drip, patient is on proton pump inhibitor IV with frequent monitoring with monitoring observation her hemoglobin him to keep hemoglobin over 7 no active bleeding however has been noted by GI services has been consulted as well for GI bleed, Estrace standpoint tolerating BiPAP very well currently patient is on BiPAP with 12 of BiPAP the and 5 EPAP respiratory rate is 22 her spontaneous tidal volumes ranging in mid 400 range, she is on 40 % oxygen, arterial blood gas couldn't be drawn, labs medications and radiographic studies reviewed culture results are reviewed as well no positive cultures been seen patient remains on Zosyn, critical care time spent 35 minutes 11/07/2018, patient seen and evaluated examined during the rounds this morning critical care time spent 40 minutes, patient has removed to the ICU from medical floor as she was hypotensive with poor urine output in addition patient has been more somnolent and lethargic she did have receive a dose of Xanax on the floor, after arrival in ICU patient remains very hypotensive with tachycardia was given multiple fluid boluses to improve the hemodynamics however eventually starting the levo fed drip, patient does have 2 peripheral IVs one of them is not functioning very well, worsening of renal function has been noted the renal services planning to do hemodialysis, patient has very poor peripheral arterial disease unable to obtain ABG in addition to that very poor peripheral pulses are present, patient is arousable opens eyes follow simple commands but remains very anxious and agitated, patient eventually went up to 25 mics of levo fed drip with a systolic blood pressure ranging about 100 210, urine output has been very minimal, given that the lack of ability of IV axis will proceed with a central line however patient needed dialysis port as well will do a trilysis catheter (hemodialysis catheter with extra port), care plan discussed with the vascular surgery as well and renal services planning to do hemodialysis later on today provided hemodynamics remain stable, due to anticipated profound metabolic acidosis patient has been started on bicarb drip , patient is being kept on IV Zosyn heparin has been on hold due to procedures as well as elevated PTT labs reviewed medications reviewed radiographic studies reviewed as well 11/06/2018, patient seen eval examined during the rounds clinically patient has a been doing relatively better in terms of shortness of breath and swelling of the lower extremity patient is currently on room air however renal function continued to go up slightly and Lasix dose is being adjusted by renal service labs reviewed medications reviewed for now we'll continue IV heparin hopefully next 24-48 hours we'll switch it to oral anticoagulants 11/05/2018, patient seen eval reexamined during the rounds clinically has been doing relatively better in terms of breathing leg swelling the lower extremity is slightly better patient is on anticoagulation with IV heparin for DVT thrombosis of lower extremity on the right side also probable pulmonary embolism as well Patient presented to the hospital with worsening dyspnea and edema. Patient states she's been getting progressively short of breath over the last 1 week. She initially thought it was asthma but the symptoms did not improve with nebulized treatments. She also noticed edema in her legs. She states she does not take any diuretics at home. She admits to good urine output. No hematuria or dysuria. No vomiting or diarrhea. Oral intake has been fair. Denies use of NSAIDs. Chest CT revealed bilateral pleural effusions. Echocardiogram revealed ejection fraction of 35-40% with severe pulmonary hypertension. Currently maintained on Lasix 40 mg IV twice daily. She has been voiding. No fever or chills. Her duplex ultrasound of the lower extremity came back positive for DVT patient is now being started on IV heparin Objective - Vital Signs Vital signs: Vital Signs Temp 97.9 F 11/13/18 08:00 Pulse 63 11/13/18 08:36 Resp 20 11/13/18 08:00 BP 97/50 11/13/18 08:00 Pulse Ox 100 11/13/18 08:00 Intake & Output 11/12/18 11/13/18 11/13/18 18:59 06:59 18:59 Intake Total 9572.196 8975.034 204.226 Output Total 12 12 0 Balance 5240.155 9654.034 204.226 Weight 123.1 kg 123.1 kg Intake: IV 880 915 160 0.9 NACL 550 555 100 Dextrose 5% in Water 1, 330 360 60 000 ml @ 30 mls/hr IV . Q24H [facility] with Sodium Bicarb (1 Meq/ml) 100 ml Rx#:[id number] Intake, IV Titration 338.213 832.034 2.226 Amount Heparin Sod,Pork in 0.45% 165.17 195.578 NaCl 25,000 unit In 0.45 % NaCl 1 250ml.bag @ 8.45 UNITS/KG/HR 9.97 mls/hr IV .Q24H [facility] Rx#: [id number] Insulin Regular 100 unit 36.462 37.181 2.226 In Sodium Chloride 0.9% 100 ml @ Per Protocol IV .Q0M [facility] Rx#:[id number] Norepinephrine 16 mg In 61.581 299.275 Sodium Chloride 0.9% 250 ml @ Titrate IV .Q0M [facility] Rx#:[id number] Piperacillin-Tazobactam 3 75 .375 gm In Sodium Chloride 0.9% 100 ml @ 25 mls/hr IVPB Q12HR [facility] Rx #:[id number] Propofol 1,000 mg In 300.000 Empty Bag 1 bag @ Titrate IV .Q0M [facility] Rx#: [id number] Tube Feeding 150 12 12 Other 30 Output: Urine 9 11 0 Stool 3 1 Other: Voiding Method Indwelling Catheter Indwelling Catheter Indwelling Catheter - Exam - Constitutional General appearance: disheveled, mild distress, morbidly obese, intermittently anxious and agitated now relatively more comfortable on full ventilator support - Neck Neck: normal ROM Carotids: bilateral: upstroke normal Thyroid: bilateral: normal size - Respiratory Respiratory: bilateral: CTA, few basal rales, negative: diminished, dullness - Cardiovascular Rhythm: regular Heart sounds: normal: S1, S2 - Integumentary Integumentary: normal turgor Abdomen soft - Neurologic Neurologic: CNII-XII intact - Musculoskeletal Musculoskeletal: Moving all 4 extremity good tone in all 4 extremity, peripheral acral cyanosis in the toes and the fingertips noted as dictated above , the cyanosis in the fingertips have appeared to improve - Psychiatric Psychiatric: A&O x's 2, in appropriate affect, at times become anxious and agitated and combative - Labs CBC & Chem 7: 11/13/18 04:44 11/13/18 04:44 Labs: Abnormal Lab Results - Last 24 Hours (Table) 11/12/18 11/12/18 11/12/18 Range/Units 05:13 09:29 10:10 WBC 11.8 H (3.8-10.6) k/uL RBC (3.80-5.40) m/uL Hgb (11.4-16.0) gm/dL Hct (34.0-46.0) % RDW (11.5-15.5) % Plt Count (150-450) k/uL Neutrophils # (Manual) 10.00 H (1.3-7.7) k/uL Nucleated RBCs 6 H (0-0) /100 WBC APTT (22.0-30.0) sec Sodium (137-145) mmol/L Potassium (3.5-5.1) mmol/L BUN (7-17) mg/dL Creatinine (0.52-1.04) mg/dL Glucose (74-99) mg/dL POC Glucose (mg/dL) 217 H 190 H (75-99) mg/dL Calcium (8.4-10.2) mg/dL AST (14-36) U/L ALT (9-52) U/L Alkaline Phosphatase (38-126) U/L Total Protein (6.3-8.2) g/dL Albumin (3.5-5.0) g/dL 11/12/18 11/12/18 11/12/18 Range/Units 11:02 12:53 14:23 WBC (3.8-10.6) k/uL RBC (3.80-5.40) m/uL Hgb (11.4-16.0) gm/dL Hct (34.0-46.0) % RDW (11.5-15.5) % Plt Count (150-450) k/uL Neutrophils # (Manual) (1.3-7.7) k/uL Nucleated RBCs (0-0) /100 WBC APTT (22.0-30.0) sec Sodium (137-145) mmol/L Potassium (3.5-5.1) mmol/L BUN (7-17) mg/dL Creatinine (0.52-1.04) mg/dL Glucose (74-99) mg/dL POC Glucose (mg/dL) 193 H 123 H 113 H (75-99) mg/dL Calcium (8.4-10.2) mg/dL AST (14-36) U/L ALT (9-52) U/L Alkaline Phosphatase (38-126) U/L Total Protein (6.3-8.2) g/dL Albumin (3.5-5.0) g/dL 11/12/18 11/12/18 11/12/18 Range/Units 17:33 18:21 19:05 WBC (3.8-10.6) k/uL RBC (3.80-5.40) m/uL Hgb (11.4-16.0) gm/dL Hct (34.0-46.0) % RDW (11.5-15.5) % Plt Count (150-450) k/uL Neutrophils # (Manual) (1.3-7.7) k/uL Nucleated RBCs (0-0) /100 WBC APTT (22.0-30.0) sec Sodium (137-145) mmol/L Potassium (3.5-5.1) mmol/L BUN (7-17) mg/dL Creatinine (0.52-1.04) mg/dL Glucose (74-99) mg/dL POC Glucose (mg/dL) 124 H 128 H 180 H (75-99) mg/dL Calcium (8.4-10.2) mg/dL AST (14-36) U/L ALT (9-52) U/L Alkaline Phosphatase (38-126) U/L Total Protein (6.3-8.2) g/dL Albumin (3.5-5.0) g/dL 11/12/18 11/12/18 11/12/18 Range/Units 19:59 21:06 22:18 WBC (3.8-10.6) k/uL RBC (3.80-5.40) m/uL Hgb (11.4-16.0) gm/dL Hct (34.0-46.0) % RDW (11.5-15.5) % Plt Count (150-450) k/uL Neutrophils # (Manual) (1.3-7.7) k/uL Nucleated RBCs (0-0) /100 WBC APTT (22.0-30.0) sec Sodium (137-145) mmol/L Potassium (3.5-5.1) mmol/L BUN (7-17) mg/dL Creatinine (0.52-1.04) mg/dL Glucose (74-99) mg/dL POC Glucose (mg/dL) 127 H 155 H 179 H (75-99) mg/dL Calcium (8.4-10.2) mg/dL AST (14-36) U/L ALT (9-52) U/L Alkaline Phosphatase (38-126) U/L Total Protein (6.3-8.2) g/dL Albumin (3.5-5.0) g/dL 11/12/18 11/13/18 11/13/18 Range/Units 22:56 00:07 01:01 WBC (3.8-10.6) k/uL RBC (3.80-5.40) m/uL Hgb (11.4-16.0) gm/dL Hct (34.0-46.0) % RDW (11.5-15.5) % Plt Count (150-450) k/uL Neutrophils # (Manual) (1.3-7.7) k/uL Nucleated RBCs (0-0) /100 WBC APTT (22.0-30.0) sec Sodium (137-145) mmol/L Potassium (3.5-5.1) mmol/L BUN (7-17) mg/dL Creatinine (0.52-1.04) mg/dL Glucose (74-99) mg/dL POC Glucose (mg/dL) 149 H 155 H 176 H (75-99) mg/dL Calcium (8.4-10.2) mg/dL AST (14-36) U/L ALT (9-52) U/L Alkaline Phosphatase (38-126) U/L Total Protein (6.3-8.2) g/dL Albumin (3.5-5.0) g/dL 11/13/18 11/13/18 11/13/18 Range/Units 02:06 03:20 04:10 WBC (3.8-10.6) k/uL RBC (3.80-5.40) m/uL Hgb (11.4-16.0) gm/dL Hct (34.0-46.0) % RDW (11.5-15.5) % Plt Count (150-450) k/uL Neutrophils # (Manual) (1.3-7.7) k/uL Nucleated RBCs (0-0) /100 WBC APTT (22.0-30.0) sec Sodium (137-145) mmol/L Potassium (3.5-5.1) mmol/L BUN (7-17) mg/dL Creatinine (0.52-1.04) mg/dL Glucose (74-99) mg/dL POC Glucose (mg/dL) 156 H 175 H 189 H (75-99) mg/dL Calcium (8.4-10.2) mg/dL AST (14-36) U/L ALT (9-52) U/L Alkaline Phosphatase (38-126) U/L Total Protein (6.3-8.2) g/dL Albumin (3.5-5.0) g/dL 11/13/18 11/13/18 11/13/18 Range/Units 04:44 04:44 04:44 WBC 10.9 H (3.8-10.6) k/uL RBC 2.84 L (3.80-5.40) m/uL Hgb 8.5 L (11.4-16.0) gm/dL Hct 27.4 L (34.0-46.0) % RDW 18.7 H (11.5-15.5) % Plt Count 135 L (150-450) k/uL Neutrophils # (Manual) (1.3-7.7) k/uL Nucleated RBCs (0-0) /100 WBC APTT 68.3 H (22.0-30.0) sec Sodium 132 L (137-145) mmol/L Potassium 3.4 L (3.5-5.1) mmol/L BUN 38 H (7-17) mg/dL Creatinine 4.10 H (0.52-1.04) mg/dL Glucose 187 H (74-99) mg/dL POC Glucose (mg/dL) (75-99) mg/dL Calcium 6.8 L (8.4-10.2) mg/dL AST 1054 H (14-36) U/L ALT 1663 H (9-52) U/L Alkaline Phosphatase 148 H (38-126) U/L Total Protein 4.0 L (6.3-8.2) g/dL Albumin 1.9 L (3.5-5.0) g/dL 11/13/18 11/13/18 11/13/18 Range/Units 05:00 06:00 07:00 WBC (3.8-10.6) k/uL RBC (3.80-5.40) m/uL Hgb (11.4-16.0) gm/dL Hct (34.0-46.0) % RDW (11.5-15.5) % Plt Count (150-450) k/uL Neutrophils # (Manual) (1.3-7.7) k/uL Nucleated RBCs (0-0) /100 WBC APTT (22.0-30.0) sec Sodium (137-145) mmol/L Potassium (3.5-5.1) mmol/L BUN (7-17) mg/dL Creatinine (0.52-1.04) mg/dL Glucose (74-99) mg/dL POC Glucose (mg/dL) 174 H 151 H 137 H (75-99) mg/dL Calcium (8.4-10.2) mg/dL AST (14-36) U/L ALT (9-52) U/L Alkaline Phosphatase (38-126) U/L Total Protein (6.3-8.2) g/dL Albumin (3.5-5.0) g/dL 11/13/18 11/13/18 11/13/18 Range/Units 07:52 09:08 09:58 WBC (3.8-10.6) k/uL RBC (3.80-5.40) m/uL Hgb (11.4-16.0) gm/dL Hct (34.0-46.0) % RDW (11.5-15.5) % Plt Count (150-450) k/uL Neutrophils # (Manual) (1.3-7.7) k/uL Nucleated RBCs (0-0) /100 WBC APTT (22.0-30.0) sec Sodium (137-145) mmol/L Potassium (3.5-5.1) mmol/L BUN (7-17) mg/dL Creatinine (0.52-1.04) mg/dL Glucose (74-99) mg/dL POC Glucose (mg/dL) 122 H 159 H 127 H (75-99) mg/dL Calcium (8.4-10.2) mg/dL AST (14-36) U/L ALT (9-52) U/L Alkaline Phosphatase (38-126) U/L Total Protein (6.3-8.2) g/dL Albumin (3.5-5.0) g/dL Microbiology - Last 24 Hours (Table) 11/07/18 00:04 Blood Culture - Final Blood No Growth after 144 hours 11/11/18 04:15 Gram Stain - Preliminary Sputum Sputum Culture - Preliminary Assessment and Plan Assessment: Acute on chronic renal failure and anuric Runs of the atrial fibrillation along with wide complex tachycardia, now patient is back in sinus rhythm, amiodarone has been switched to oral Acute respiratory failure multifactorial due to profound metabolic acidosis along with arrhythmia and congestive heart failure likely biventricular failure and pulmonary embolism Severe sepsis on broad-spectrum antibiotics, possible right lower lobe pneumonia cannot be excluded less likely aspiration related as patient has a good gag flex GI bleed of unclear source status post blood transfusion, hemoglobin has been stable now no evidence of active bleeding has been seen on IV heparin Altered mental status and metabolic encephalopathy likely multifactorial related to renal failure Deep venous thrombosis of right lower extremity and possible pulmonary embolism 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 Small bilateral pleural effusion more so on the right side compared to left side Acute blood loss anemia Plan: Anticoagulation currently is being continued in the form of IV heparin, tolerating it fairly well We will defer placement of IVC filter to vascular surgery Continue daily hemodialysis as tolerated Blood transfusion as needed keep hemoglobin over 7 Optimize therapy for heart failure Monitor renal functions closely Further recommendations pending plan of care as per clinical response of the patient Bicarb drip low-dose to be reinitiated due to vasa spasm and cyanotic changes into the toes Taper levo fed drip as tolerated Taper oxygen down to 35-40% next 24 We'll continue to taper down the pressors as tolerated continue bicarb drip Continue tube feed tube feed Discuss care plan with the patient's family including and daughter, nursing staff as well as primary service Time with Patient: Greater than 30
[2018-11-13 10:57] LABS: Glucose,Whole Blood 248 mg/dL (75-99)
--- NOTE | 2018-11-13 11:04 | P.PN ---
Subjective Progress Note Date: 11/13/18 Seen and examined for the follow-up of acute kidney injury. Still oliguric. Still on ventilator with 40% FiO2. Also on 14 mics of Levophed. Objective - Vital Signs Vital signs: Vital Signs Temp 97.9 F 11/13/18 08:00 Pulse 63 11/13/18 08:51 Resp 20 11/13/18 08:00 BP 97/50 11/13/18 08:00 Pulse Ox 100 11/13/18 08:00 Intake & Output 11/12/18 11/13/18 11/13/18 18:59 06:59 18:59 Intake Total 3347.403 7836.034 400.226 Output Total 12 12 0 Balance 6831.222 7542.034 400.226 Weight 123.1 kg 123.1 kg Intake: IV 880 915 320 0.9 NACL 550 555 200 Dextrose 5% in Water 1, 330 360 120 000 ml @ 30 mls/hr IV . Q24H [facility] with Sodium Bicarb (1 Meq/ml) 100 ml Rx#:[id number] Intake, IV Titration 338.213 832.034 2.226 Amount Heparin Sod,Pork in 0.45% 165.17 195.578 NaCl 25,000 unit In 0.45 % NaCl 1 250ml.bag @ 8.45 UNITS/KG/HR 9.97 mls/hr IV .Q24H [facility] Rx#: [id number] Insulin Regular 100 unit 36.462 37.181 2.226 In Sodium Chloride 0.9% 100 ml @ Per Protocol IV .Q0M [facility] Rx#:[id number] Norepinephrine 16 mg In 61.581 299.275 Sodium Chloride 0.9% 250 ml @ Titrate IV .Q0M [facility] Rx#:[id number] Piperacillin-Tazobactam 3 75 .375 gm In Sodium Chloride 0.9% 100 ml @ 25 mls/hr IVPB Q12HR [facility] Rx #:[id number] Propofol 1,000 mg In 300.000 Empty Bag 1 bag @ Titrate IV .Q0M [facility] Rx#: [id number] Tube Feeding 150 12 48 Other 30 Output: Urine 9 11 0 Stool 3 1 Other: Voiding Method Indwelling Catheter Indwelling Catheter Indwelling Catheter - Exam No acute distress on ventilator S1-S2 heard Basal crackles Edema. - Labs CBC & Chem 7: 11/13/18 04:44 11/13/18 04:44 Labs: Abnormal Lab Results - Last 24 Hours (Table) 11/12/18 11/12/18 11/12/18 Range/Units 05:13 09:29 10:10 WBC 11.8 H (3.8-10.6) k/uL RBC (3.80-5.40) m/uL Hgb (11.4-16.0) gm/dL Hct (34.0-46.0) % RDW (11.5-15.5) % Plt Count (150-450) k/uL Neutrophils # (Manual) 10.00 H (1.3-7.7) k/uL Nucleated RBCs 6 H (0-0) /100 WBC APTT (22.0-30.0) sec Sodium (137-145) mmol/L Potassium (3.5-5.1) mmol/L BUN (7-17) mg/dL Creatinine (0.52-1.04) mg/dL Glucose (74-99) mg/dL POC Glucose (mg/dL) 217 H 190 H (75-99) mg/dL Calcium (8.4-10.2) mg/dL AST (14-36) U/L ALT (9-52) U/L Alkaline Phosphatase (38-126) U/L Total Protein (6.3-8.2) g/dL Albumin (3.5-5.0) g/dL 11/12/18 11/12/18 11/12/18 Range/Units 11:02 12:53 14:23 WBC (3.8-10.6) k/uL RBC (3.80-5.40) m/uL Hgb (11.4-16.0) gm/dL Hct (34.0-46.0) % RDW (11.5-15.5) % Plt Count (150-450) k/uL Neutrophils # (Manual) (1.3-7.7) k/uL Nucleated RBCs (0-0) /100 WBC APTT (22.0-30.0) sec Sodium (137-145) mmol/L Potassium (3.5-5.1) mmol/L BUN (7-17) mg/dL Creatinine (0.52-1.04) mg/dL Glucose (74-99) mg/dL POC Glucose (mg/dL) 193 H 123 H 113 H (75-99) mg/dL Calcium (8.4-10.2) mg/dL AST (14-36) U/L ALT (9-52) U/L Alkaline Phosphatase (38-126) U/L Total Protein (6.3-8.2) g/dL Albumin (3.5-5.0) g/dL 11/12/18 11/12/18 11/12/18 Range/Units 17:33 18:21 19:05 WBC (3.8-10.6) k/uL RBC (3.80-5.40) m/uL Hgb (11.4-16.0) gm/dL Hct (34.0-46.0) % RDW (11.5-15.5) % Plt Count (150-450) k/uL Neutrophils # (Manual) (1.3-7.7) k/uL Nucleated RBCs (0-0) /100 WBC APTT (22.0-30.0) sec Sodium (137-145) mmol/L Potassium (3.5-5.1) mmol/L BUN (7-17) mg/dL Creatinine (0.52-1.04) mg/dL Glucose (74-99) mg/dL POC Glucose (mg/dL) 124 H 128 H 180 H (75-99) mg/dL Calcium (8.4-10.2) mg/dL AST (14-36) U/L ALT (9-52) U/L Alkaline Phosphatase (38-126) U/L Total Protein (6.3-8.2) g/dL Albumin (3.5-5.0) g/dL 11/12/18 11/12/18 11/12/18 Range/Units 19:59 21:06 22:18 WBC (3.8-10.6) k/uL RBC (3.80-5.40) m/uL Hgb (11.4-16.0) gm/dL Hct (34.0-46.0) % RDW (11.5-15.5) % Plt Count (150-450) k/uL Neutrophils # (Manual) (1.3-7.7) k/uL Nucleated RBCs (0-0) /100 WBC APTT (22.0-30.0) sec Sodium (137-145) mmol/L Potassium (3.5-5.1) mmol/L BUN (7-17) mg/dL Creatinine (0.52-1.04) mg/dL Glucose (74-99) mg/dL POC Glucose (mg/dL) 127 H 155 H 179 H (75-99) mg/dL Calcium (8.4-10.2) mg/dL AST (14-36) U/L ALT (9-52) U/L Alkaline Phosphatase (38-126) U/L Total Protein (6.3-8.2) g/dL Albumin (3.5-5.0) g/dL 11/12/18 11/13/18 11/13/18 Range/Units 22:56 00:07 01:01 WBC (3.8-10.6) k/uL RBC (3.80-5.40) m/uL Hgb (11.4-16.0) gm/dL Hct (34.0-46.0) % RDW (11.5-15.5) % Plt Count (150-450) k/uL Neutrophils # (Manual) (1.3-7.7) k/uL Nucleated RBCs (0-0) /100 WBC APTT (22.0-30.0) sec Sodium (137-145) mmol/L Potassium (3.5-5.1) mmol/L BUN (7-17) mg/dL Creatinine (0.52-1.04) mg/dL Glucose (74-99) mg/dL POC Glucose (mg/dL) 149 H 155 H 176 H (75-99) mg/dL Calcium (8.4-10.2) mg/dL AST (14-36) U/L ALT (9-52) U/L Alkaline Phosphatase (38-126) U/L Total Protein (6.3-8.2) g/dL Albumin (3.5-5.0) g/dL 11/13/18 11/13/18 11/13/18 Range/Units 02:06 03:20 04:10 WBC (3.8-10.6) k/uL RBC (3.80-5.40) m/uL Hgb (11.4-16.0) gm/dL Hct (34.0-46.0) % RDW (11.5-15.5) % Plt Count (150-450) k/uL Neutrophils # (Manual) (1.3-7.7) k/uL Nucleated RBCs (0-0) /100 WBC APTT (22.0-30.0) sec Sodium (137-145) mmol/L Potassium (3.5-5.1) mmol/L BUN (7-17) mg/dL Creatinine (0.52-1.04) mg/dL Glucose (74-99) mg/dL POC Glucose (mg/dL) 156 H 175 H 189 H (75-99) mg/dL Calcium (8.4-10.2) mg/dL AST (14-36) U/L ALT (9-52) U/L Alkaline Phosphatase (38-126) U/L Total Protein (6.3-8.2) g/dL Albumin (3.5-5.0) g/dL 11/13/18 11/13/18 11/13/18 Range/Units 04:44 04:44 04:44 WBC 10.9 H (3.8-10.6) k/uL RBC 2.84 L (3.80-5.40) m/uL Hgb 8.5 L (11.4-16.0) gm/dL Hct 27.4 L (34.0-46.0) % RDW 18.7 H (11.5-15.5) % Plt Count 135 L (150-450) k/uL Neutrophils # (Manual) (1.3-7.7) k/uL Nucleated RBCs (0-0) /100 WBC APTT 68.3 H (22.0-30.0) sec Sodium 132 L (137-145) mmol/L Potassium 3.4 L (3.5-5.1) mmol/L BUN 38 H (7-17) mg/dL Creatinine 4.10 H (0.52-1.04) mg/dL Glucose 187 H (74-99) mg/dL POC Glucose (mg/dL) (75-99) mg/dL Calcium 6.8 L (8.4-10.2) mg/dL AST 1054 H (14-36) U/L ALT 1663 H (9-52) U/L Alkaline Phosphatase 148 H (38-126) U/L Total Protein 4.0 L (6.3-8.2) g/dL Albumin 1.9 L (3.5-5.0) g/dL 11/13/18 11/13/18 11/13/18 Range/Units 05:00 06:00 07:00 WBC (3.8-10.6) k/uL RBC (3.80-5.40) m/uL Hgb (11.4-16.0) gm/dL Hct (34.0-46.0) % RDW (11.5-15.5) % Plt Count (150-450) k/uL Neutrophils # (Manual) (1.3-7.7) k/uL Nucleated RBCs (0-0) /100 WBC APTT (22.0-30.0) sec Sodium (137-145) mmol/L Potassium (3.5-5.1) mmol/L BUN (7-17) mg/dL Creatinine (0.52-1.04) mg/dL Glucose (74-99) mg/dL POC Glucose (mg/dL) 174 H 151 H 137 H (75-99) mg/dL Calcium (8.4-10.2) mg/dL AST (14-36) U/L ALT (9-52) U/L Alkaline Phosphatase (38-126) U/L Total Protein (6.3-8.2) g/dL Albumin (3.5-5.0) g/dL 11/13/18 11/13/18 11/13/18 Range/Units 07:52 09:08 09:58 WBC (3.8-10.6) k/uL RBC (3.80-5.40) m/uL Hgb (11.4-16.0) gm/dL Hct (34.0-46.0) % RDW (11.5-15.5) % Plt Count (150-450) k/uL Neutrophils # (Manual) (1.3-7.7) k/uL Nucleated RBCs (0-0) /100 WBC APTT (22.0-30.0) sec Sodium (137-145) mmol/L Potassium (3.5-5.1) mmol/L BUN (7-17) mg/dL Creatinine (0.52-1.04) mg/dL Glucose (74-99) mg/dL POC Glucose (mg/dL) 122 H 159 H 127 H (75-99) mg/dL Calcium (8.4-10.2) mg/dL AST (14-36) U/L ALT (9-52) U/L Alkaline Phosphatase (38-126) U/L Total Protein (6.3-8.2) g/dL Albumin (3.5-5.0) g/dL 11/13/18 Range/Units 10:46 WBC (3.8-10.6) k/uL RBC (3.80-5.40) m/uL Hgb (11.4-16.0) gm/dL Hct (34.0-46.0) % RDW (11.5-15.5) % Plt Count (150-450) k/uL Neutrophils # (Manual) (1.3-7.7) k/uL Nucleated RBCs (0-0) /100 WBC APTT (22.0-30.0) sec Sodium (137-145) mmol/L Potassium (3.5-5.1) mmol/L BUN (7-17) mg/dL Creatinine (0.52-1.04) mg/dL Glucose (74-99) mg/dL POC Glucose (mg/dL) 248 H (75-99) mg/dL Calcium (8.4-10.2) mg/dL AST (14-36) U/L ALT (9-52) U/L Alkaline Phosphatase (38-126) U/L Total Protein (6.3-8.2) g/dL Albumin (3.5-5.0) g/dL Microbiology - Last 24 Hours (Table) 11/11/18 04:15 Gram Stain - Final Sputum Sputum Culture - Final 11/07/18 00:04 Blood Culture - Final Blood No Growth after 144 hours Assessment and Plan Assessment: #1 nonoliguric acute kidney injury, currently dialysis dependent secondary to hemodynamic ATN. 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 #4 volume overload. #5 hypervolemic hyponatremia #6 metabolic acidosis Plan: #1 hemodialysis tomorrow with 2 L of ultrafiltration. #2 strict ins and outs, monitor for renal recovery. #3 stop bicarbonate drip acidosis resolved. #4 avoid nephrotoxic agents and hypotensive episodes.
--- NOTE | 2018-11-13 11:32 | P.PN ---
Subjective Progress Note Date: 11/13/18 Interval history: 11/13/18- patient is being seen examined and evaluated today on rounds while covering for Dr. Bandar Paul. This patient is admitted to the hospital with altered mental status likely related to the acute renal failure, hypotension, severe sepsis, hypertension, A. fib with RVR, right lower extremity venous thrombosis, chronic intermittent thromboembolism, pulmonary hypertension, biventricular failure, acute on chronic systolic heart failure, acute on chronic renal failure stage IV, small bilateral pleural effusions, morbid obesity. The patient is on propofol at 25 mics. And has been on a heparin drip as well. She also continues on a bicarb drip and vasopressor support of 14 mics which is being titrated down. She is also on insulin drip. She is on mechanical ventilation assist control mode with a respiratory rate of 20, tidal volume of 500, FiO2 40% and a PEEP of 5. She did receive hemodialysis yesterday and approximately 1.5 L of fluid was removed. [facility] is following this patient closely as well. All labs and reports have been reviewed. Objective - Vital Signs Vital signs: Vital Signs Temp 97.9 F 11/13/18 08:00 Pulse 63 11/13/18 08:51 Resp 20 11/13/18 08:00 BP 97/50 11/13/18 08:00 Pulse Ox 100 11/13/18 08:00 Intake & Output 11/12/18 11/13/18 11/13/18 18:59 06:59 18:59 Intake Total 4724.058 3385.034 400.226 Output Total 12 12 0 Balance 9084.273 0046.034 400.226 Weight 123.1 kg 123.1 kg Intake: IV 880 915 320 0.9 NACL 550 555 200 Dextrose 5% in Water 1, 330 360 120 000 ml @ 30 mls/hr IV . Q24H [facility] with Sodium Bicarb (1 Meq/ml) 100 ml Rx#:[id number] Intake, IV Titration 338.213 832.034 2.226 Amount Heparin Sod,Pork in 0.45% 165.17 195.578 NaCl 25,000 unit In 0.45 % NaCl 1 250ml.bag @ 8.45 UNITS/KG/HR 9.97 mls/hr IV .Q24H [facility] Rx#: [id number] Insulin Regular 100 unit 36.462 37.181 2.226 In Sodium Chloride 0.9% 100 ml @ Per Protocol IV .Q0M [facility] Rx#:[id number] Norepinephrine 16 mg In 61.581 299.275 Sodium Chloride 0.9% 250 ml @ Titrate IV .Q0M [facility] Rx#:[id number] Piperacillin-Tazobactam 3 75 .375 gm In Sodium Chloride 0.9% 100 ml @ 25 mls/hr IVPB Q12HR [facility] Rx #:[id number] Propofol 1,000 mg In 300.000 Empty Bag 1 bag @ Titrate IV .Q0M [facility] Rx#: [id number] Tube Feeding 150 12 48 Other 30 Output: Urine 9 11 0 Stool 3 1 Other: Voiding Method Indwelling Catheter Indwelling Catheter Indwelling Catheter - Exam GENERAL EXAM: On mechanical ventilation with propofol for sedation HEAD: Normocephalic. EYES: Normal reaction of pupils, equal size. NOSE: Clear with pink turbinates. THROAT: No erythema or exudates. NECK: No masses, no JVD. CHEST: No chest wall deformity. LUNGS: Equal air entry with no crackles, wheeze, rhonchi or dullness. CVS: S1 and S2 normal with no audible mumurs, regular rhythm. ABDOMEN: No hepatosplenomegaly, normal bowel sounds, no guarding or rigidity. EXTREMITIES: No edema noted, pedal pulses palpable. CENTRAL NERVOUS SYSTEM: Unable to assess, on sedation - Labs CBC & Chem 7: 11/13/18 04:44 11/13/18 04:44 Labs: Abnormal Lab Results - Last 24 Hours (Table) 11/12/18 11/12/18 11/12/18 Range/Units 05:13 09:29 10:10 WBC 11.8 H (3.8-10.6) k/uL RBC (3.80-5.40) m/uL Hgb (11.4-16.0) gm/dL Hct (34.0-46.0) % RDW (11.5-15.5) % Plt Count (150-450) k/uL Neutrophils # (Manual) 10.00 H (1.3-7.7) k/uL Nucleated RBCs 6 H (0-0) /100 WBC APTT (22.0-30.0) sec Sodium (137-145) mmol/L Potassium (3.5-5.1) mmol/L BUN (7-17) mg/dL Creatinine (0.52-1.04) mg/dL Glucose (74-99) mg/dL POC Glucose (mg/dL) 217 H 190 H (75-99) mg/dL Calcium (8.4-10.2) mg/dL AST (14-36) U/L ALT (9-52) U/L Alkaline Phosphatase (38-126) U/L Total Protein (6.3-8.2) g/dL Albumin (3.5-5.0) g/dL 11/12/18 11/12/18 11/12/18 Range/Units 11:02 12:53 14:23 WBC (3.8-10.6) k/uL RBC (3.80-5.40) m/uL Hgb (11.4-16.0) gm/dL Hct (34.0-46.0) % RDW (11.5-15.5) % Plt Count (150-450) k/uL Neutrophils # (Manual) (1.3-7.7) k/uL Nucleated RBCs (0-0) /100 WBC APTT (22.0-30.0) sec Sodium (137-145) mmol/L Potassium (3.5-5.1) mmol/L BUN (7-17) mg/dL Creatinine (0.52-1.04) mg/dL Glucose (74-99) mg/dL POC Glucose (mg/dL) 193 H 123 H 113 H (75-99) mg/dL Calcium (8.4-10.2) mg/dL AST (14-36) U/L ALT (9-52) U/L Alkaline Phosphatase (38-126) U/L Total Protein (6.3-8.2) g/dL Albumin (3.5-5.0) g/dL 11/12/18 11/12/18 11/12/18 Range/Units 17:33 18:21 19:05 WBC (3.8-10.6) k/uL RBC (3.80-5.40) m/uL Hgb (11.4-16.0) gm/dL Hct (34.0-46.0) % RDW (11.5-15.5) % Plt Count (150-450) k/uL Neutrophils # (Manual) (1.3-7.7) k/uL Nucleated RBCs (0-0) /100 WBC APTT (22.0-30.0) sec Sodium (137-145) mmol/L Potassium (3.5-5.1) mmol/L BUN (7-17) mg/dL Creatinine (0.52-1.04) mg/dL Glucose (74-99) mg/dL POC Glucose (mg/dL) 124 H 128 H 180 H (75-99) mg/dL Calcium (8.4-10.2) mg/dL AST (14-36) U/L ALT (9-52) U/L Alkaline Phosphatase (38-126) U/L Total Protein (6.3-8.2) g/dL Albumin (3.5-5.0) g/dL 11/12/18 11/12/18 11/12/18 Range/Units 19:59 21:06 22:18 WBC (3.8-10.6) k/uL RBC (3.80-5.40) m/uL Hgb (11.4-16.0) gm/dL Hct (34.0-46.0) % RDW (11.5-15.5) % Plt Count (150-450) k/uL Neutrophils # (Manual) (1.3-7.7) k/uL Nucleated RBCs (0-0) /100 WBC APTT (22.0-30.0) sec Sodium (137-145) mmol/L Potassium (3.5-5.1) mmol/L BUN (7-17) mg/dL Creatinine (0.52-1.04) mg/dL Glucose (74-99) mg/dL POC Glucose (mg/dL) 127 H 155 H 179 H (75-99) mg/dL Calcium (8.4-10.2) mg/dL AST (14-36) U/L ALT (9-52) U/L Alkaline Phosphatase (38-126) U/L Total Protein (6.3-8.2) g/dL Albumin (3.5-5.0) g/dL 11/12/18 11/13/18 11/13/18 Range/Units 22:56 00:07 01:01 WBC (3.8-10.6) k/uL RBC (3.80-5.40) m/uL Hgb (11.4-16.0) gm/dL Hct (34.0-46.0) % RDW (11.5-15.5) % Plt Count (150-450) k/uL Neutrophils # (Manual) (1.3-7.7) k/uL Nucleated RBCs (0-0) /100 WBC APTT (22.0-30.0) sec Sodium (137-145) mmol/L Potassium (3.5-5.1) mmol/L BUN (7-17) mg/dL Creatinine (0.52-1.04) mg/dL Glucose (74-99) mg/dL POC Glucose (mg/dL) 149 H 155 H 176 H (75-99) mg/dL Calcium (8.4-10.2) mg/dL AST (14-36) U/L ALT (9-52) U/L Alkaline Phosphatase (38-126) U/L Total Protein (6.3-8.2) g/dL Albumin (3.5-5.0) g/dL 11/13/18 11/13/18 11/13/18 Range/Units 02:06 03:20 04:10 WBC (3.8-10.6) k/uL RBC (3.80-5.40) m/uL Hgb (11.4-16.0) gm/dL Hct (34.0-46.0) % RDW (11.5-15.5) % Plt Count (150-450) k/uL Neutrophils # (Manual) (1.3-7.7) k/uL Nucleated RBCs (0-0) /100 WBC APTT (22.0-30.0) sec Sodium (137-145) mmol/L Potassium (3.5-5.1) mmol/L BUN (7-17) mg/dL Creatinine (0.52-1.04) mg/dL Glucose (74-99) mg/dL POC Glucose (mg/dL) 156 H 175 H 189 H (75-99) mg/dL Calcium (8.4-10.2) mg/dL AST (14-36) U/L ALT (9-52) U/L Alkaline Phosphatase (38-126) U/L Total Protein (6.3-8.2) g/dL Albumin (3.5-5.0) g/dL 11/13/18 11/13/18 11/13/18 Range/Units 04:44 04:44 04:44 WBC 10.9 H (3.8-10.6) k/uL RBC 2.84 L (3.80-5.40) m/uL Hgb 8.5 L (11.4-16.0) gm/dL Hct 27.4 L (34.0-46.0) % RDW 18.7 H (11.5-15.5) % Plt Count 135 L (150-450) k/uL Neutrophils # (Manual) (1.3-7.7) k/uL Nucleated RBCs (0-0) /100 WBC APTT 68.3 H (22.0-30.0) sec Sodium 132 L (137-145) mmol/L Potassium 3.4 L (3.5-5.1) mmol/L BUN 38 H (7-17) mg/dL Creatinine 4.10 H (0.52-1.04) mg/dL Glucose 187 H (74-99) mg/dL POC Glucose (mg/dL) (75-99) mg/dL Calcium 6.8 L (8.4-10.2) mg/dL AST 1054 H (14-36) U/L ALT 1663 H (9-52) U/L Alkaline Phosphatase 148 H (38-126) U/L Total Protein 4.0 L (6.3-8.2) g/dL Albumin 1.9 L (3.5-5.0) g/dL 11/13/18 11/13/18 11/13/18 Range/Units 05:00 06:00 07:00 WBC (3.8-10.6) k/uL RBC (3.80-5.40) m/uL Hgb (11.4-16.0) gm/dL Hct (34.0-46.0) % RDW (11.5-15.5) % Plt Count (150-450) k/uL Neutrophils # (Manual) (1.3-7.7) k/uL Nucleated RBCs (0-0) /100 WBC APTT (22.0-30.0) sec Sodium (137-145) mmol/L Potassium (3.5-5.1) mmol/L BUN (7-17) mg/dL Creatinine (0.52-1.04) mg/dL Glucose (74-99) mg/dL POC Glucose (mg/dL) 174 H 151 H 137 H (75-99) mg/dL Calcium (8.4-10.2) mg/dL AST (14-36) U/L ALT (9-52) U/L Alkaline Phosphatase (38-126) U/L Total Protein (6.3-8.2) g/dL Albumin (3.5-5.0) g/dL 11/13/18 11/13/18 11/13/18 Range/Units 07:52 09:08 09:58 WBC (3.8-10.6) k/uL RBC (3.80-5.40) m/uL Hgb (11.4-16.0) gm/dL Hct (34.0-46.0) % RDW (11.5-15.5) % Plt Count (150-450) k/uL Neutrophils # (Manual) (1.3-7.7) k/uL Nucleated RBCs (0-0) /100 WBC APTT (22.0-30.0) sec Sodium (137-145) mmol/L Potassium (3.5-5.1) mmol/L BUN (7-17) mg/dL Creatinine (0.52-1.04) mg/dL Glucose (74-99) mg/dL POC Glucose (mg/dL) 122 H 159 H 127 H (75-99) mg/dL Calcium (8.4-10.2) mg/dL AST (14-36) U/L ALT (9-52) U/L Alkaline Phosphatase (38-126) U/L Total Protein (6.3-8.2) g/dL Albumin (3.5-5.0) g/dL 11/13/18 Range/Units 10:46 WBC (3.8-10.6) k/uL RBC (3.80-5.40) m/uL Hgb (11.4-16.0) gm/dL Hct (34.0-46.0) % RDW (11.5-15.5) % Plt Count (150-450) k/uL Neutrophils # (Manual) (1.3-7.7) k/uL Nucleated RBCs (0-0) /100 WBC APTT (22.0-30.0) sec Sodium (137-145) mmol/L Potassium (3.5-5.1) mmol/L BUN (7-17) mg/dL Creatinine (0.52-1.04) mg/dL Glucose (74-99) mg/dL POC Glucose (mg/dL) 248 H (75-99) mg/dL Calcium (8.4-10.2) mg/dL AST (14-36) U/L ALT (9-52) U/L Alkaline Phosphatase (38-126) U/L Total Protein (6.3-8.2) g/dL Albumin (3.5-5.0) g/dL Microbiology - Last 24 Hours (Table) 11/11/18 04:15 Gram Stain - Final Sputum Sputum Culture - Final 11/07/18 00:04 Blood Culture - Final Blood No Growth after 144 hours Assessment and Plan Assessment: Assessment Acute on chronic renal failure Acute hypoxic respiratory failure requiring supplemental oxygen and mechanical ventilation metabolic acidosis Biventricular heart failure PE Severe sepsis Altered mental status and metabolic encephalopathy DVT of the right lower extremity small bilateral pleural effusions Plan Medications have been reviewed and will be continued as ordered. Continue with plant nursery worker recommendations Mechanical ventilation with propofol for sedation Vasopressor support wean as tolerated Hemodialysis per nephrology Continue to monitor hemoglobin Tube feeds Bicarb drip per plant nursery worker/and or nephrology Continue with pulmonary hygiene, coughing and deep breathing exercises, and supportive care. Supplemental oxygen to maintain oxygen saturations of 92% or better. Continue nebulizer treatments. GI and DVT prophylaxis. We will continue to monitor labs/results and adjust treatment as necessary. Further recommendations pending. I, the signing physician performed an examination of the patient, discussed and directed their management with the nurse practitioner. I have reviewed the nurse practitioner's note and agree with the documented findings, orders and plan of care. Nurse practitioner acting as a scribe for the signing physician. Please note we are covering for Dr. Bandar Paul today
[2018-11-13 12:12] LABS: Glucose,Whole Blood 214 mg/dL (75-99)
[2018-11-13 13:17] LABS: Glucose,Whole Blood 208 mg/dL (75-99)
[2018-11-13 13:42] LABS: Crenated RBC Present; Polychromasia Present; Target Cells Present
[2018-11-13 14:08] LABS: Glucose,Whole Blood 187 mg/dL (75-99)
[2018-11-13] MEDS: HEPARIN SOD,PORK IN 0.45% NACL 25,000 UNIT in 0.45% NACL 1 250ML.BAG IV SCH (14:16)
[2018-11-13] MEDS: METOPROLOL SUCCINATE (ER) 50 MG TAB.ER.24H PO SCH (14:18)
[2018-11-13 15:12] LABS: Glucose,Whole Blood 108 mg/dL (75-99)
[2018-11-13] MEDS: INSULIN REGULAR 100 UNIT in SODIUM CHLORIDE 0.9% 100 ML IV SCH (15:53)
[2018-11-13 16:04] LABS: Glucose,Whole Blood 177 mg/dL (75-99)
[2018-11-13 17:14] LABS: Glucose,Whole Blood 177 mg/dL (75-99)
--- NOTE | 2018-11-13 17:25 | PN ---
PROGRESS NOTE DATE OF SERVICE: 11/12/2018. SUBJECTIVE: This is a white female with pulmonary embolism DVT, severe pulmonary hypertension, insulin-dependent diabetes mellitus, COPD, systolic CHF. Remains comfortably on the vent. Possibly weaning parameters will be given. Dialysis will be given for end-stage renal disease. She has a poor prognosis. We will monitor over the next 3 or 4 days. Probably talking to the family about comfort measures if she does not improve. She is resting comfortably on the vent. Lungs transmitted upper sounds. CARDIOVASCULAR: S1, S2. Abdomen is soft. ASSESSMENT: As above. PROGNOSIS: Extremely guarded. Discussed the case with the daughter. MMODL / IJN: [id number] /
[2018-11-13 18:03] LABS: Glucose,Whole Blood 180 mg/dL (75-99)
[2018-11-13] MEDS: SODIUM CHLORIDE 0.9% 1,000 ML IV SCH (19:18)
[2018-11-13 19:25] LABS: Glucose,Whole Blood 177 mg/dL (75-99)
[2018-11-13] MEDS: MONTELUKAST 10 MG TAB PO SCH (20:43)
[2018-11-13 21:13] LABS: Glucose,Whole Blood 154 mg/dL (75-99)
[2018-11-13] MEDS: PRAVASTATIN SODIUM 20 MG TAB PO SCH (21:36)
[2018-11-13 22:18] LABS: Glucose,Whole Blood 101 mg/dL (75-99)
[2018-11-13 23:23] LABS: Glucose,Whole Blood 161 mg/dL (75-99)
--- NOTE | 2018-11-13 23:28 | PN ---
PROGRESS NOTE DATE OF SERVICE: 11/13/2018. REASON FOR FOLLOWUP: Possible pneumonia. INTERVAL HISTORY: The patient is currently afebrile. The patient is hemodynamically stable, not on pressor support. The patient FiO2 is stable at 40%. She will be started on tube feeds. The patient has been tolerating and there is plan for repeat dialysis. PHYSICAL EXAMINATION: Blood pressure 119/72 with a pulse of 104, temperature 98. She is 97% on 40% FiO2. General description is a middle aged female, intubated on the vent. HEENT: Shows pallor. No scleral icterus. The patient is orally intubated. Lungs unlabored breathing, decreased breath sounds at the bases. No wheeze. Heart S1, S2. Regular rate and rhythm. ABDOMEN: Soft, no tenderness. LABS: Hemoglobin 8.5, white count 10.9 with a BUN of 32, creatinine 4.10. DIAGNOSTIC IMPRESSION AND PLAN: Patient with acute respiratory failure which is likely multifactorial, possible component of pneumonia. Patient is currently covered with Zosyn to continue for now while watching clinical course and cultures closely. Continue supportive care. MMODL / IJN: [id number] /
[2018-11-14 00:37] LABS: Glucose,Whole Blood 101 mg/dL (75-99)
[2018-11-14 01:09] LABS: Glucose,Whole Blood 104 mg/dL (75-99)
[2018-11-14] MEDS: PROPOFOL 1,000 MG in EMPTY BAG 1 BAG IV SCH ×4 (02:10→20:38)
[2018-11-14 02:27] LABS: Glucose,Whole Blood 219 mg/dL (75-99)
[2018-11-14] MEDS: NOREPINEPHRINE 16 MG in SODIUM CHLORIDE 0.9% 250 ML IV SCH ×2 (02:35→18:20)
[2018-11-14 03:16] LABS: Glucose,Whole Blood 190 mg/dL (75-99)
[2018-11-14 04:13] LABS: Glucose,Whole Blood 143 mg/dL (75-99)
[2018-11-14 05:05] LABS: Anisocytosis Slight; Basophils # (A) 0.1 k/uL (0-0.2); Basophils % (A) 1 %; Eosinophils # (A) 0.2 k/uL (0-0.7); Eosinophils % (A) 2 %; HGB 8.9 gm/dL (11.4-16.0); Hypochromasia Marked; Lymphocytes # (A) 1.3 k/uL (1.0-4.8); Lymphocytes % (A) 11 %; MCH 29.7 pg (25.0-35.0); MCHC 30.6 g/dL (31.0-37.0); MCV 97.1 fL (80.0-100.0); Macrocytosis Slight; Mean Platelet Volume 8.1; Monocytes # (A) 0.4 k/uL (0-1.0); Monocytes % (A) 4 %; Neutrophils # (A) 10.3 k/uL (1.3-7.7); Neutrophils % (A) 82 %; Platelet Count 148 k/uL (150-450); Poikilocytosis Slight; RBC 2.98 m/uL (3.80-5.40); WBC 12.6 k/uL (3.8-10.6)
[2018-11-14 05:14] LABS: Albumin 1.9 g/dL (3.5-5.0); Calcium 6.8 mg/dL (8.4-10.2); Phosphorus 5.4 mg/dL (2.5-4.5); Potassium 3.7 mmol/L (3.5-5.1); Total Bilirubin 0.7 mg/dL (0.2-1.3); Total Protein 4.1 g/dL (6.3-8.2)
[2018-11-14 05:15] LABS: Glucose,Whole Blood 141 mg/dL (75-99)
[2018-11-14 05:59] LABS: Partial Thromboplastin Time 60.9 sec (22.0-30.0); Prothrombin Time 10.4 sec (9.0-12.0)
[2018-11-14 06:11] LABS: Glucose,Whole Blood 164 mg/dL (75-99)
--- NOTE | 2018-11-14 07:11 | XR ---
EXAMINATION TYPE: XR chest 1V portable DATE OF EXAM: 11/14/2018 COMPARISON: 11/13/2018 HISTORY: SOB, Follow Up FINDINGS: Indwelling tubes and catheters are unchanged. No change in bibasilar opacities. Stable appearance of the cardio-mediastinal structures at this time. Pleural effusion unchanged. IMPRESSION: 1. Stable portable chest. Clinical correlation and follow up until resolution is recommended.
--- NOTE | 2018-11-14 07:46 | P.PN ---
Subjective Progress Note Date: 11/14/18 Principal diagnosis: CHF/cardiomyopathy This is a pleasant 58-year-old female patient with an extensive past medical history for her age consistent of coronary artery disease, peripheral arterial disease, diabetes, hypertension, dyslipidemia, and chronic kidney disease, was admitted to the hospital with chest discomfort and was ruled in for acute non- ST patient myocardial infarction and also with congestive heart failure secondary to systolic dysfunction. The patient was treated medically for the non-STEMI The echocardiogram revealed impaired LV function with EF of 35%, mild aortic stenosis, severe pulmonary hypertension, and moderate tricuspid regurgitation. I'll follow-up with the patient today, 11/14/2018, the patient continues to be intubated and continues to be on ventilator. Hemodynamically she continues to be on norepinephrine but the dose has been coming down. She continues to be in normal sinus mechanism and currently she is on amiodarone by mouth. She is also on anticoagulation with heparin. I will decrease the dose of metoprolol because she is bradycardic and also in trying to wean her from the norepinephrine. Objective - Vital Signs Vital signs: Vital Signs Temp 98.0 F 11/14/18 00:00 Pulse 56 L 11/14/18 06:00 Resp 20 11/14/18 06:00 BP 117/47 11/14/18 06:00 Pulse Ox 98 11/14/18 03:00 Intake & Output 11/13/18 11/14/18 11/14/18 18:59 06:59 18:59 Intake Total 6424.586 2608.258 80.989 Output Total 1 32 Balance 7673.096 2107.258 80.989 Weight 123.1 kg Intake: IV 960 960 0.9 NACL 600 600 Dextrose 5% in Water 1, 360 360 000 ml @ 30 mls/hr IV . Q24H [facility] with Sodium Bicarb (1 Meq/ml) 100 ml Rx#:[id number] Intake, IV Titration 184.898 413.258 80.989 Amount Heparin Sod,Pork in 0.45% 54.422 NaCl 25,000 unit In 0.45 % NaCl 1 250ml.bag @ 8.45 UNITS/KG/HR 9.97 mls/hr IV .Q24H [facility] Rx#: [id number] Insulin Regular 100 unit 30.476 37.944 In Sodium Chloride 0.9% 100 ml @ Per Protocol IV .Q0M [facility] Rx#:[id number] Norepinephrine 16 mg In 200.725 Sodium Chloride 0.9% 250 ml @ Titrate IV .Q0M [facility] Rx#:[id number] Propofol 1,000 mg In 100 174.589 80.989 Empty Bag 1 bag @ Titrate IV .Q0M [facility] Rx#: [id number] Tube Feeding 180 60 Other 90 Output: Urine 0 30 Stool 1 2 Other: Voiding Method Indwelling Catheter Indwelling Catheter # Voids 0 - Constitutional General appearance: Present: no acute distress - Respiratory Respiratory: bilateral: CTA - Cardiovascular Rhythm: regular Heart sounds: normal: S1, S2 - Labs CBC & Chem 7: 11/14/18 04:07 11/14/18 04:07 Labs: Abnormal Lab Results - Last 24 Hours (Table) 11/12/18 11/13/18 11/13/18 Range/Units 05:13 04:44 07:52 WBC 11.8 H 10.9 H (3.8-10.6) k/uL RBC 2.84 L (3.80-5.40) m/uL Hgb 8.5 L (11.4-16.0) gm/dL Hct 27.4 L (34.0-46.0) % MCHC (31.0-37.0) g/dL RDW 18.7 H (11.5-15.5) % Plt Count 135 L (150-450) k/uL Neutrophils # 8.5 H (1.3-7.7) k/uL Neutrophils # (Manual) 10.00 H (1.3-7.7) k/uL Nucleated RBCs 6 H (0-0) /100 WBC APTT (22.0-30.0) sec Sodium (137-145) mmol/L BUN (7-17) mg/dL Creatinine (0.52-1.04) mg/dL Glucose (74-99) mg/dL POC Glucose (mg/dL) 122 H (75-99) mg/dL Calcium (8.4-10.2) mg/dL Phosphorus (2.5-4.5) mg/dL AST (14-36) U/L ALT (9-52) U/L Alkaline Phosphatase (38-126) U/L Total Protein (6.3-8.2) g/dL Albumin (3.5-5.0) g/dL 11/13/18 11/13/18 11/13/18 Range/Units 09:08 09:58 10:46 WBC (3.8-10.6) k/uL RBC (3.80-5.40) m/uL Hgb (11.4-16.0) gm/dL Hct (34.0-46.0) % MCHC (31.0-37.0) g/dL RDW (11.5-15.5) % Plt Count (150-450) k/uL Neutrophils # (1.3-7.7) k/uL Neutrophils # (Manual) (1.3-7.7) k/uL Nucleated RBCs (0-0) /100 WBC APTT (22.0-30.0) sec Sodium (137-145) mmol/L BUN (7-17) mg/dL Creatinine (0.52-1.04) mg/dL Glucose (74-99) mg/dL POC Glucose (mg/dL) 159 H 127 H 248 H (75-99) mg/dL Calcium (8.4-10.2) mg/dL Phosphorus (2.5-4.5) mg/dL AST (14-36) U/L ALT (9-52) U/L Alkaline Phosphatase (38-126) U/L Total Protein (6.3-8.2) g/dL Albumin (3.5-5.0) g/dL 11/13/18 11/13/18 11/13/18 Range/Units 12:01 13:05 13:56 WBC (3.8-10.6) k/uL RBC (3.80-5.40) m/uL Hgb (11.4-16.0) gm/dL Hct (34.0-46.0) % MCHC (31.0-37.0) g/dL RDW (11.5-15.5) % Plt Count (150-450) k/uL Neutrophils # (1.3-7.7) k/uL Neutrophils # (Manual) (1.3-7.7) k/uL Nucleated RBCs (0-0) /100 WBC APTT (22.0-30.0) sec Sodium (137-145) mmol/L BUN (7-17) mg/dL Creatinine (0.52-1.04) mg/dL Glucose (74-99) mg/dL POC Glucose (mg/dL) 214 H 208 H 187 H (75-99) mg/dL Calcium (8.4-10.2) mg/dL Phosphorus (2.5-4.5) mg/dL AST (14-36) U/L ALT (9-52) U/L Alkaline Phosphatase (38-126) U/L Total Protein (6.3-8.2) g/dL Albumin (3.5-5.0) g/dL 11/13/18 11/13/18 11/13/18 Range/Units 14:58 15:53 17:02 WBC (3.8-10.6) k/uL RBC (3.80-5.40) m/uL Hgb (11.4-16.0) gm/dL Hct (34.0-46.0) % MCHC (31.0-37.0) g/dL RDW (11.5-15.5) % Plt Count (150-450) k/uL Neutrophils # (1.3-7.7) k/uL Neutrophils # (Manual) (1.3-7.7) k/uL Nucleated RBCs (0-0) /100 WBC APTT (22.0-30.0) sec Sodium (137-145) mmol/L BUN (7-17) mg/dL Creatinine (0.52-1.04) mg/dL Glucose (74-99) mg/dL POC Glucose (mg/dL) 108 H 177 H 177 H (75-99) mg/dL Calcium (8.4-10.2) mg/dL Phosphorus (2.5-4.5) mg/dL AST (14-36) U/L ALT (9-52) U/L Alkaline Phosphatase (38-126) U/L Total Protein (6.3-8.2) g/dL Albumin (3.5-5.0) g/dL 11/13/18 11/13/18 11/13/18 Range/Units 17:52 19:13 21:02 WBC (3.8-10.6) k/uL RBC (3.80-5.40) m/uL Hgb (11.4-16.0) gm/dL Hct (34.0-46.0) % MCHC (31.0-37.0) g/dL RDW (11.5-15.5) % Plt Count (150-450) k/uL Neutrophils # (1.3-7.7) k/uL Neutrophils # (Manual) (1.3-7.7) k/uL Nucleated RBCs (0-0) /100 WBC APTT (22.0-30.0) sec Sodium (137-145) mmol/L BUN (7-17) mg/dL Creatinine (0.52-1.04) mg/dL Glucose (74-99) mg/dL POC Glucose (mg/dL) 180 H 177 H 154 H (75-99) mg/dL Calcium (8.4-10.2) mg/dL Phosphorus (2.5-4.5) mg/dL AST (14-36) U/L ALT (9-52) U/L Alkaline Phosphatase (38-126) U/L Total Protein (6.3-8.2) g/dL Albumin (3.5-5.0) g/dL 11/13/18 11/13/18 11/14/18 Range/Units 22:06 23:11 00:25 WBC (3.8-10.6) k/uL RBC (3.80-5.40) m/uL Hgb (11.4-16.0) gm/dL Hct (34.0-46.0) % MCHC (31.0-37.0) g/dL RDW (11.5-15.5) % Plt Count (150-450) k/uL Neutrophils # (1.3-7.7) k/uL Neutrophils # (Manual) (1.3-7.7) k/uL Nucleated RBCs (0-0) /100 WBC APTT (22.0-30.0) sec Sodium (137-145) mmol/L BUN (7-17) mg/dL Creatinine (0.52-1.04) mg/dL Glucose (74-99) mg/dL POC Glucose (mg/dL) 101 H 161 H 101 H (75-99) mg/dL Calcium (8.4-10.2) mg/dL Phosphorus (2.5-4.5) mg/dL AST (14-36) U/L ALT (9-52) U/L Alkaline Phosphatase (38-126) U/L Total Protein (6.3-8.2) g/dL Albumin (3.5-5.0) g/dL 11/14/18 11/14/18 11/14/18 Range/Units 00:58 02:16 03:04 WBC (3.8-10.6) k/uL RBC (3.80-5.40) m/uL Hgb (11.4-16.0) gm/dL Hct (34.0-46.0) % MCHC (31.0-37.0) g/dL RDW (11.5-15.5) % Plt Count (150-450) k/uL Neutrophils # (1.3-7.7) k/uL Neutrophils # (Manual) (1.3-7.7) k/uL Nucleated RBCs (0-0) /100 WBC APTT (22.0-30.0) sec Sodium (137-145) mmol/L BUN (7-17) mg/dL Creatinine (0.52-1.04) mg/dL Glucose (74-99) mg/dL POC Glucose (mg/dL) 104 H 219 H 190 H (75-99) mg/dL Calcium (8.4-10.2) mg/dL Phosphorus (2.5-4.5) mg/dL AST (14-36) U/L ALT (9-52) U/L Alkaline Phosphatase (38-126) U/L Total Protein (6.3-8.2) g/dL Albumin (3.5-5.0) g/dL 11/14/18 11/14/18 11/14/18 Range/Units 04:02 04:07 04:07 WBC 12.6 H (3.8-10.6) k/uL RBC 2.98 L (3.80-5.40) m/uL Hgb 8.9 L (11.4-16.0) gm/dL Hct 29.0 L (34.0-46.0) % MCHC 30.6 L (31.0-37.0) g/dL RDW 19.0 H (11.5-15.5) % Plt Count 148 L (150-450) k/uL Neutrophils # 10.3 H (1.3-7.7) k/uL Neutrophils # (Manual) (1.3-7.7) k/uL Nucleated RBCs (0-0) /100 WBC APTT (22.0-30.0) sec Sodium 131 L (137-145) mmol/L BUN 44 H (7-17) mg/dL Creatinine 4.99 H (0.52-1.04) mg/dL Glucose 182 H (74-99) mg/dL POC Glucose (mg/dL) 143 H (75-99) mg/dL Calcium 6.8 L (8.4-10.2) mg/dL Phosphorus 5.4 H (2.5-4.5) mg/dL AST 509 H (14-36) U/L ALT 1296 H (9-52) U/L Alkaline Phosphatase 144 H (38-126) U/L Total Protein 4.1 L (6.3-8.2) g/dL Albumin 1.9 L (3.5-5.0) g/dL 11/14/18 11/14/18 11/14/18 Range/Units 04:33 05:04 05:59 WBC (3.8-10.6) k/uL RBC (3.80-5.40) m/uL Hgb (11.4-16.0) gm/dL Hct (34.0-46.0) % MCHC (31.0-37.0) g/dL RDW (11.5-15.5) % Plt Count (150-450) k/uL Neutrophils # (1.3-7.7) k/uL Neutrophils # (Manual) (1.3-7.7) k/uL Nucleated RBCs (0-0) /100 WBC APTT 60.9 H (22.0-30.0) sec Sodium (137-145) mmol/L BUN (7-17) mg/dL Creatinine (0.52-1.04) mg/dL Glucose (74-99) mg/dL POC Glucose (mg/dL) 141 H 164 H (75-99) mg/dL Calcium (8.4-10.2) mg/dL Phosphorus (2.5-4.5) mg/dL AST (14-36) U/L ALT (9-52) U/L Alkaline Phosphatase (38-126) U/L Total Protein (6.3-8.2) g/dL Albumin (3.5-5.0) g/dL Microbiology - Last 24 Hours (Table) 11/11/18 04:15 Gram Stain - Final Sputum Sputum Culture - Final Assessment and Plan Assessment: Assessment #1 systolic congestive heart failure exacerbation #2 acute non-ST elevation myocardial infarction #3 acute on chronic renal failure #4 peripheral vascular disease #5 systemic hypertension #6 hyperkalemia Plan #1 continue the dialysis #2 the right wean the patient from the vasopressors #3 continue amiodarone by mouth. #4 decrease the dose of metoprolol in view of the bradycardia #5 continue anticoagulation was heparin #6 changed to oral anticoagulation down the line
[2018-11-14] MEDS: NICOTINE 21MG/24HR PATCH TRANSDERM SCH (07:51)
[2018-11-14] MEDS: PANTOPRAZOLE 40 MG/10 ML VIAL IV SCH ×2 (07:51→20:39)
[2018-11-14] MEDS: AMIODARONE 200 MG TAB PO SCH ×2 (07:51→20:39)
[2018-11-14] MEDS: FERROUS SULFATE 325 MG TAB PO SCH (07:52)
[2018-11-14] MEDS: PIPERACILLIN-TAZOBACTAM 3.375 GM in SODIUM CHLORIDE 0.9% 100 ML IVPB SCH ×2 (07:52→20:38)
[2018-11-14] MEDS: CALCIUM ACETATE 667 MG CAP PO SCH ×3 (07:52→18:34)
[2018-11-14] MEDS: ASPIRIN 81 MG PO SCH (07:52)
[2018-11-14 07:57] LABS: Glucose,Whole Blood 172 mg/dL (75-99)
[2018-11-14 08:48] LABS: Glucose,Whole Blood 309 mg/dL (75-99)
[2018-11-14 08:48] LABS: Glucose,Whole Blood 463 mg/dL (75-99)
[2018-11-14 08:48] LABS: Glucose,Whole Blood 251 mg/dL (75-99)
[2018-11-14 08:48] LABS: Glucose,Whole Blood 353 mg/dL (75-99)
[2018-11-14] MEDS: CHLORHEXIDINE GLUCONATE 15 ML CUP MUCOUS MEM SCH ×2 (09:19→20:39)
[2018-11-14 09:29] LABS: Glucose,Whole Blood 141 mg/dL (75-99)
[2018-11-14 10:22] LABS: Glucose,Whole Blood 87 mg/dL (75-99)
--- NOTE | 2018-11-14 10:42 | P.PN ---
Subjective Patient is seen in follow-up for acute kidney injury on chronic kidney disease. Patient has chronic kidney disease stage IV with baseline creatinine near 3 secondary to diabetic kidney disease. Due to worsening renal function and oliguria, she was started on hemodialysis on November 07. She was intubated. Currently on 13 mics of Levophed. Remains oliguric. No active bleeding. Hemoglobin stable. Last hemodialysis was on Wednesday. Afebrile. Currently on vasopressors. General: The patient appeared well nourished and normally developed. HEENT: Head exam is unremarkable. Neck is without jugular venous distension. Intubated. LUNGS: Breath sounds decreased. HEART: Rate and Rhythm are regular. First and second heart sounds normal. No murmurs, rubs or gallops. ABDOMEN: Abdominal exam reveals normal bowel sounds. Non-tender and non- distended. No evidence of peritonitis. EXTREMITITES: Trace edema. Objective - Vital Signs Vital signs: Vital Signs Temp 97.4 F L 11/14/18 10:00 Pulse 63 11/14/18 10:00 Resp 21 11/14/18 10:00 BP 137/56 11/14/18 10:00 Pulse Ox 98 11/14/18 09:00 Intake & Output 11/13/18 11/14/18 11/14/18 18:59 06:59 18:59 Intake Total 7979.276 7134.258 340.266 Output Total 1 32 2 Balance 7139.666 1985.258 338.266 Weight 123.1 kg Intake: IV 960 960 100 0.9 NACL 600 600 100 Dextrose 5% in Water 1, 360 360 000 ml @ 30 mls/hr IV . Q24H [facility] with Sodium Bicarb (1 Meq/ml) 100 ml Rx#:[id number] Intake, IV Titration 184.898 413.258 228.266 Amount Dextrose 5% in Water 1, 30 000 ml @ 30 mls/hr IV . Q24H [facility] with Sodium Bicarb (1 Meq/ml) 100 ml Rx#:[id number] Heparin Sod,Pork in 0.45% 54.422 NaCl 25,000 unit In 0.45 % NaCl 1 250ml.bag @ 8.45 UNITS/KG/HR 9.97 mls/hr IV .Q24H [facility] Rx#: [id number] Insulin Regular 100 unit 30.476 37.944 7.339 In Sodium Chloride 0.9% 100 ml @ Per Protocol IV .Q0M [facility] Rx#:[id number] Norepinephrine 16 mg In 200.725 84.938 Sodium Chloride 0.9% 250 ml @ Titrate IV .Q0M [facility] Rx#:[id number] Piperacillin-Tazobactam 3 25 .375 gm In Sodium Chloride 0.9% 100 ml @ 25 mls/hr IVPB Q12HR [facility] Rx #:[id number] Propofol 1,000 mg In 100 174.589 80.989 Empty Bag 1 bag @ Titrate IV .Q0M [facility] Rx#: [id number] Tube Feeding 180 60 12 Other 90 Output: Urine 0 30 2 Stool 1 2 Other: Voiding Method Indwelling Catheter Indwelling Catheter Indwelling Catheter # Voids 0 - Labs CBC & Chem 7: 11/14/18 04:07 11/14/18 04:07 Labs: Abnormal Lab Results - Last 24 Hours (Table) 11/12/18 11/12/18 11/12/18 Range/Units 00:13 00:21 04:05 WBC (3.8-10.6) k/uL RBC (3.80-5.40) m/uL Hgb (11.4-16.0) gm/dL Hct (34.0-46.0) % MCHC (31.0-37.0) g/dL RDW (11.5-15.5) % Plt Count (150-450) k/uL Neutrophils # (1.3-7.7) k/uL APTT (22.0-30.0) sec Sodium (137-145) mmol/L BUN (7-17) mg/dL Creatinine (0.52-1.04) mg/dL Glucose (74-99) mg/dL POC Glucose (mg/dL) 463 H 353 H 309 H (75-99) mg/dL Calcium (8.4-10.2) mg/dL Phosphorus (2.5-4.5) mg/dL AST (14-36) U/L ALT (9-52) U/L Alkaline Phosphatase (38-126) U/L Total Protein (6.3-8.2) g/dL Albumin (3.5-5.0) g/dL 11/12/18 11/13/18 11/13/18 Range/Units 04:07 04:44 10:46 WBC 10.9 H (3.8-10.6) k/uL RBC 2.84 L (3.80-5.40) m/uL Hgb 8.5 L (11.4-16.0) gm/dL Hct 27.4 L (34.0-46.0) % MCHC (31.0-37.0) g/dL RDW 18.7 H (11.5-15.5) % Plt Count 135 L (150-450) k/uL Neutrophils # 8.5 H (1.3-7.7) k/uL APTT (22.0-30.0) sec Sodium (137-145) mmol/L BUN (7-17) mg/dL Creatinine (0.52-1.04) mg/dL Glucose (74-99) mg/dL POC Glucose (mg/dL) 251 H 248 H (75-99) mg/dL Calcium (8.4-10.2) mg/dL Phosphorus (2.5-4.5) mg/dL AST (14-36) U/L ALT (9-52) U/L Alkaline Phosphatase (38-126) U/L Total Protein (6.3-8.2) g/dL Albumin (3.5-5.0) g/dL 11/13/18 11/13/18 11/13/18 Range/Units 12:01 13:05 13:56 WBC (3.8-10.6) k/uL RBC (3.80-5.40) m/uL Hgb (11.4-16.0) gm/dL Hct (34.0-46.0) % MCHC (31.0-37.0) g/dL RDW (11.5-15.5) % Plt Count (150-450) k/uL Neutrophils # (1.3-7.7) k/uL APTT (22.0-30.0) sec Sodium (137-145) mmol/L BUN (7-17) mg/dL Creatinine (0.52-1.04) mg/dL Glucose (74-99) mg/dL POC Glucose (mg/dL) 214 H 208 H 187 H (75-99) mg/dL Calcium (8.4-10.2) mg/dL Phosphorus (2.5-4.5) mg/dL AST (14-36) U/L ALT (9-52) U/L Alkaline Phosphatase (38-126) U/L Total Protein (6.3-8.2) g/dL Albumin (3.5-5.0) g/dL 11/13/18 11/13/18 11/13/18 Range/Units 14:58 15:53 17:02 WBC (3.8-10.6) k/uL RBC (3.80-5.40) m/uL Hgb (11.4-16.0) gm/dL Hct (34.0-46.0) % MCHC (31.0-37.0) g/dL RDW (11.5-15.5) % Plt Count (150-450) k/uL Neutrophils # (1.3-7.7) k/uL APTT (22.0-30.0) sec Sodium (137-145) mmol/L BUN (7-17) mg/dL Creatinine (0.52-1.04) mg/dL Glucose (74-99) mg/dL POC Glucose (mg/dL) 108 H 177 H 177 H (75-99) mg/dL Calcium (8.4-10.2) mg/dL Phosphorus (2.5-4.5) mg/dL AST (14-36) U/L ALT (9-52) U/L Alkaline Phosphatase (38-126) U/L Total Protein (6.3-8.2) g/dL Albumin (3.5-5.0) g/dL 11/13/18 11/13/18 11/13/18 Range/Units 17:52 19:13 21:02 WBC (3.8-10.6) k/uL RBC (3.80-5.40) m/uL Hgb (11.4-16.0) gm/dL Hct (34.0-46.0) % MCHC (31.0-37.0) g/dL RDW (11.5-15.5) % Plt Count (150-450) k/uL Neutrophils # (1.3-7.7) k/uL APTT (22.0-30.0) sec Sodium (137-145) mmol/L BUN (7-17) mg/dL Creatinine (0.52-1.04) mg/dL Glucose (74-99) mg/dL POC Glucose (mg/dL) 180 H 177 H 154 H (75-99) mg/dL Calcium (8.4-10.2) mg/dL Phosphorus (2.5-4.5) mg/dL AST (14-36) U/L ALT (9-52) U/L Alkaline Phosphatase (38-126) U/L Total Protein (6.3-8.2) g/dL Albumin (3.5-5.0) g/dL 11/13/18 11/13/18 11/14/18 Range/Units 22:06 23:11 00:25 WBC (3.8-10.6) k/uL RBC (3.80-5.40) m/uL Hgb (11.4-16.0) gm/dL Hct (34.0-46.0) % MCHC (31.0-37.0) g/dL RDW (11.5-15.5) % Plt Count (150-450) k/uL Neutrophils # (1.3-7.7) k/uL APTT (22.0-30.0) sec Sodium (137-145) mmol/L BUN (7-17) mg/dL Creatinine (0.52-1.04) mg/dL Glucose (74-99) mg/dL POC Glucose (mg/dL) 101 H 161 H 101 H (75-99) mg/dL Calcium (8.4-10.2) mg/dL Phosphorus (2.5-4.5) mg/dL AST (14-36) U/L ALT (9-52) U/L Alkaline Phosphatase (38-126) U/L Total Protein (6.3-8.2) g/dL Albumin (3.5-5.0) g/dL 11/14/18 11/14/18 11/14/18 Range/Units 00:58 02:16 03:04 WBC (3.8-10.6) k/uL RBC (3.80-5.40) m/uL Hgb (11.4-16.0) gm/dL Hct (34.0-46.0) % MCHC (31.0-37.0) g/dL RDW (11.5-15.5) % Plt Count (150-450) k/uL Neutrophils # (1.3-7.7) k/uL APTT (22.0-30.0) sec Sodium (137-145) mmol/L BUN (7-17) mg/dL Creatinine (0.52-1.04) mg/dL Glucose (74-99) mg/dL POC Glucose (mg/dL) 104 H 219 H 190 H (75-99) mg/dL Calcium (8.4-10.2) mg/dL Phosphorus (2.5-4.5) mg/dL AST (14-36) U/L ALT (9-52) U/L Alkaline Phosphatase (38-126) U/L Total Protein (6.3-8.2) g/dL Albumin (3.5-5.0) g/dL 11/14/18 11/14/18 11/14/18 Range/Units 04:02 04:07 04:07 WBC 12.6 H (3.8-10.6) k/uL RBC 2.98 L (3.80-5.40) m/uL Hgb 8.9 L (11.4-16.0) gm/dL Hct 29.0 L (34.0-46.0) % MCHC 30.6 L (31.0-37.0) g/dL RDW 19.0 H (11.5-15.5) % Plt Count 148 L (150-450) k/uL Neutrophils # 10.3 H (1.3-7.7) k/uL APTT (22.0-30.0) sec Sodium 131 L (137-145) mmol/L BUN 44 H (7-17) mg/dL Creatinine 4.99 H (0.52-1.04) mg/dL Glucose 182 H (74-99) mg/dL POC Glucose (mg/dL) 143 H (75-99) mg/dL Calcium 6.8 L (8.4-10.2) mg/dL Phosphorus 5.4 H (2.5-4.5) mg/dL AST 509 H (14-36) U/L ALT 1296 H (9-52) U/L Alkaline Phosphatase 144 H (38-126) U/L Total Protein 4.1 L (6.3-8.2) g/dL Albumin 1.9 L (3.5-5.0) g/dL 11/14/18 11/14/18 11/14/18 Range/Units 04:33 05:04 05:59 WBC (3.8-10.6) k/uL RBC (3.80-5.40) m/uL Hgb (11.4-16.0) gm/dL Hct (34.0-46.0) % MCHC (31.0-37.0) g/dL RDW (11.5-15.5) % Plt Count (150-450) k/uL Neutrophils # (1.3-7.7) k/uL APTT 60.9 H (22.0-30.0) sec Sodium (137-145) mmol/L BUN (7-17) mg/dL Creatinine (0.52-1.04) mg/dL Glucose (74-99) mg/dL POC Glucose (mg/dL) 141 H 164 H (75-99) mg/dL Calcium (8.4-10.2) mg/dL Phosphorus (2.5-4.5) mg/dL AST (14-36) U/L ALT (9-52) U/L Alkaline Phosphatase (38-126) U/L Total Protein (6.3-8.2) g/dL Albumin (3.5-5.0) g/dL 11/14/18 11/14/18 Range/Units 07:45 09:17 WBC (3.8-10.6) k/uL RBC (3.80-5.40) m/uL Hgb (11.4-16.0) gm/dL Hct (34.0-46.0) % MCHC (31.0-37.0) g/dL RDW (11.5-15.5) % Plt Count (150-450) k/uL Neutrophils # (1.3-7.7) k/uL APTT (22.0-30.0) sec Sodium (137-145) mmol/L BUN (7-17) mg/dL Creatinine (0.52-1.04) mg/dL Glucose (74-99) mg/dL POC Glucose (mg/dL) 172 H 141 H (75-99) mg/dL Calcium (8.4-10.2) mg/dL Phosphorus (2.5-4.5) mg/dL AST (14-36) U/L ALT (9-52) U/L Alkaline Phosphatase (38-126) U/L Total Protein (6.3-8.2) g/dL Albumin (3.5-5.0) g/dL Microbiology - Last 24 Hours (Table) 11/11/18 04:15 Gram Stain - Final Sputum Sputum Culture - Final Assessment and Plan Plan: Assessment: 1. Acute kidney injury secondary to ATN secondary to hypotension. Creatinine peaked at 5.85 and November 07 and was also oliguric. Currently hemodialysis dependent. No hydronephrosis noted on renal ultrasound. 2. Chronic kidney disease stage IV secondary to diabetic kidney disease and nephrosclerosis with baseline creatinine near 3 according to the patient. Patient follows with a building performance consultant out of [place]. 3. Systolic CHF with ejection fraction of 30-35% with severe pulmonary hypertension and moderate tricuspid regurgitation. 4. Volume overload. Better. 5. Hyponatremia secondary to acute kidney injury. 6. Hyperkalemia secondary to acute kidney injury. Improved with dialysis. 7. Diabetes mellitus. 8. Hypotension maintained on 13 mics of Levophed. 9. Hyperphosphatemia secondary to acute kidney injury. Maintained on PhosLo. 10. Acute blood loss anemia secondary to GI bleed. Status post blood transfusion and IV DDAVP on November 10. Status post EGD on November 10 which revealed ischemic areas in the antrum. 11. NSTEMI. Cardiology following. 12. A. fib with RVR status post amiodarone drip. Now rate controlled. Plan: She tolerated hemodialysis well this morning with 2.5 L ultrafiltration. Wean Levophed. Continue to monitor renal function and urine output. Assess on day-to-day basis for need for renal replacement therapy.
[2018-11-14 11:18] LABS: Glucose,Whole Blood 141 mg/dL (75-99)
[2018-11-14 12:23] LABS: Glucose,Whole Blood 139 mg/dL (75-99)
[2018-11-14 13:12] LABS: Glucose,Whole Blood 145 mg/dL (75-99)
--- NOTE | 2018-11-14 13:17 | PN ---
PROGRESS NOTE CHIEF COMPLAINT: A 58-year-old white female remains on the ventilator with CHF, cardiomyopathy, end- stage renal disease, DVT, pulmonary embolism, diabetes, COPD, and non-STEMI showed LVEF 35%. She tolerated dialysis today without any problems with her blood pressure. She continues to be on norepinephrine, but the dose is coming down. She is in sinus rhythm with amiodarone, anticoagulated with heparin. They cut her metoprolol down due to bradycardia and wean her from the norepinephrine. Temp 98, pulse is 56, respiratory 16 to 20, blood pressure 117/47, O2 of 98. CARDIOVASCULAR: S1, S2. GI: Soft. HEMATOLOGY: Negative Homans. PSYCH: Fair mood and affect. Hemoglobin 8.9. Sugars mid 100 to 200s. Creatinine 4.99, BUN 44. ASSESSMENT: 1. Systolic congestive heart failure. 2. Acute non-ST elevation myocardial infarction. 3. Acute on chronic renal failure. 4. Peripheral vascular disease. 5. Deep venous thrombosis. 6. Pulmonary embolism. 7. severe pulmonary hypertension. 8. Hyperkalemia. Continue with amiodarone. Wean vasopressors, cut down the metoprolol. Wean off the ventilator. Continue with dialysis, probably will be needed usp. Prognosis guarded, which patient shows signs of improving. ICU TIME: 30 minutes. [id number] / ETHANN: [id number] /
[2018-11-14 14:11] LABS: Glucose,Whole Blood 181 mg/dL (75-99)
[2018-11-14] MEDS: SODIUM CHLORIDE 0.9% 1,000 ML IV SCH (14:26)
[2018-11-14 15:33] LABS: Glucose,Whole Blood 160 mg/dL (75-99)
[2018-11-14] MEDS ORDERED: METOPROLOL SUCCINATE (ER) 25 MG TAB.ER.24H PO SCH (16:00)
[2018-11-14] MEDS: HEPARIN SOD,PORK IN 0.45% NACL 25,000 UNIT in 0.45% NACL 1 250ML.BAG IV SCH (16:14)
[2018-11-14 16:24] LABS: Glucose,Whole Blood 173 mg/dL (75-99)
[2018-11-14] MEDS: ALBUTEROL NEBULIZED 2.5 MG/3 ML INHALATION PRN (16:40)
[2018-11-14] MEDS: INSULIN REGULAR 100 UNIT in SODIUM CHLORIDE 0.9% 100 ML IV SCH (18:19)
[2018-11-14 18:36] LABS: Glucose,Whole Blood 155 mg/dL (75-99)
[2018-11-14 19:29] LABS: Glucose,Whole Blood 162 mg/dL (75-99)
--- NOTE | 2018-11-14 19:44 | PN ---
PROGRESS NOTE DATE OF SERVICE: 11/14/2018 REASON FOR FOLLOWUP: Pneumonia. INTERVAL HISTORY: The patient is currently afebrile. She is hemodynamically stable. FiO2 is currently stable. She is tolerating her tube feeds. No other change in her clinical condition per the nursing staff. PHYSICAL EXAMINATION: Blood pressure is 113/65, pulse 84, temperature 97.8. She is 98% on 40% FiO2. General description is a middle-aged female intubated on the vent. RESPIRATORY SYSTEM: Unlabored breathing. Clear to auscultation anteriorly. HEART: S1, S2. Regular rate and rhythm. ABDOMEN: Soft. Mildly distended. No guarding or rigidity. LABS: Hemoglobin 8.9, white count 12.6. Repeat sputum is negative. Blood culture negative. DIAGNOSTIC IMPRESSION AND PLAN: Patient with acute respiratory failure which is likely multifactorial in this patient with a component of pneumonia, currently covered with Zosyn; to continue for now while waiting for the clinical condition to stabilize. Continue with supportive care. MMODL / IJN: [id number] /
[2018-11-14 20:09] LABS: Glucose,Whole Blood 216 mg/dL (75-99)
[2018-11-14] MEDS: PRAVASTATIN SODIUM 20 MG TAB PO SCH (20:39)
[2018-11-14] MEDS: MONTELUKAST 10 MG TAB PO SCH (20:39)
[2018-11-14 22:17] LABS: Glucose,Whole Blood 211 mg/dL (75-99)
[2018-11-14 23:14] LABS: Glucose,Whole Blood 196 mg/dL (75-99)
[2018-11-15 00:07] LABS: Glucose,Whole Blood 202 mg/dL (75-99)
[2018-11-15 01:14] LABS: Glucose,Whole Blood 187 mg/dL (75-99)
[2018-11-15 02:08] LABS: Glucose,Whole Blood 188 mg/dL (75-99)
[2018-11-15 03:07] LABS: Glucose,Whole Blood 183 mg/dL (75-99)
[2018-11-15 04:08] LABS: Glucose,Whole Blood 183 mg/dL (75-99)
[2018-11-15 05:15] LABS: Glucose,Whole Blood 175 mg/dL (75-99)
[2018-11-15 05:44] LABS: Anisocytosis Slight; Basophils % (A) 0 %; Eosinophils # (A) 0.3 k/uL (0-0.7); Eosinophils % (A) 3 %; HCT 28.1 % (34.0-46.0); HGB 8.2 gm/dL (11.4-16.0); Hypochromasia Marked; Lymphocytes # (A) 2.4 k/uL (1.0-4.8); Lymphocytes % (A) 24 %; MCH 28.5 pg (25.0-35.0); MCHC 29.1 g/dL (31.0-37.0); MCV 97.9 fL (80.0-100.0); Macrocytosis Slight; Mean Platelet Volume 7.7; Monocytes # (A) 0.6 k/uL (0-1.0); Monocytes % (A) 6 %; Neutrophils # (A) 6.4 k/uL (1.3-7.7); Neutrophils % (A) 64 %; Platelet Count 165 k/uL (150-450); Poikilocytosis Slight; RBC 2.87 m/uL (3.80-5.40); RDW 19.9 % (11.5-15.5); WBC 10.1 k/uL (3.8-10.6)
[2018-11-15 05:50] LABS: ABG Base Excess -0.9 mmol/L; ABG HCO3 26 mmol/L (21-25); ABG Oxygen Saturation 96.9 % (94-97); ABG PCO2 52 mmHg (35-45); ABG PO2 98 mmHg (83-108); ABG TCO2 27 mmol/L (19-24)
[2018-11-15 05:53] LABS: Calcium 7.2 mg/dL (8.4-10.2); Potassium 3.9 mmol/L (3.5-5.1)
[2018-11-15 06:27] LABS: Glucose,Whole Blood 155 mg/dL (75-99)
--- NOTE | 2018-11-15 06:48 | P.PN ---
Subjective Progress Note Date: 11/14/18 Principal diagnosis: Anemia of blood loss, melena Patient intubated and sedated. No acute events reported by nursing staff. No overt signs or symptoms of GI bleed. Objective - Vital Signs Vital signs: Vital Signs Temp 97.4 F L 11/14/18 20:00 Pulse 72 11/14/18 23:00 Resp 20 11/14/18 23:00 BP 101/49 11/14/18 23:00 Pulse Ox 99 11/14/18 23:00 Intake & Output 11/14/18 11/14/18 11/15/18 06:59 18:59 06:59 Intake Total 8255.118 4669.312 588.862 Output Total 32 2509 3 Balance 1401.258 -948.688 585.862 Weight 123.1 kg Intake: IV 960 550 350 0.9 NACL 600 550 250 Dextrose 5% in Water 1, 360 000 ml @ 30 mls/hr IV . Q24H [facility] with Sodium Bicarb (1 Meq/ml) 100 ml Rx#:[id number] Piperacillin-Tazobactam 2 100 .25 gm In Sodium Chloride 0.9% 100 ml @ 25 mls/hr IVPB Q8H [facility] Rx#: [id number] Intake, IV Titration 413.258 826.312 83.862 Amount Dextrose 5% in Water 1, 30 000 ml @ 30 mls/hr IV . Q24H [facility] with Sodium Bicarb (1 Meq/ml) 100 ml Rx#:[id number] Heparin Sod,Pork in 0.45% 250 NaCl 25,000 unit In 0.45 % NaCl 1 250ml.bag @ 8.45 UNITS/KG/HR 9.97 mls/hr IV .Q24H [facility] Rx#: [id number] Insulin Regular 100 unit 37.944 20.139 15.722 In Sodium Chloride 0.9% 100 ml @ Per Protocol IV .Q0M [facility] Rx#:[id number] Norepinephrine 16 mg In 200.725 190.235 39.585 Sodium Chloride 0.9% 250 ml @ Titrate IV .Q0M [facility] Rx#:[id number] Piperacillin-Tazobactam 3 100 .375 gm In Sodium Chloride 0.9% 100 ml @ 25 mls/hr IVPB Q12HR [facility] Rx #:[id number] Propofol 1,000 mg In 174.589 235.938 28.555 Empty Bag 1 bag @ Titrate IV .Q0M [facility] Rx#: [id number] Tube Feeding 60 184 155 Output: Urine 30 6 3 Stool 2 3 Other 2500 Other: Voiding Method Indwelling Catheter Indwelling Catheter Indwelling Catheter # Voids 0 - Exam On physical examination, patient intubated and sedated. HEAD: Normocephalic, atraumatic. EYES: No scleral icterus. No conjunctival injection. MOUTH: No lesions, ET tube in place. NECK: Trachea midline, no gross abnormalities. CHEST: Coarse respiratory noises in all lung gonzalez. HEART: Regular rate and rhythm. ABDOMEN: Soft, obese. Bowel sounds are positive. No organomegaly. No guarding or rigidity. EXTREMITIES: No pedal edema. SKIN: No rashes, no jaundice. NEUROLOGIC: Intubated and sedated. - Labs CBC & Chem 7: 11/15/18 04:14 11/15/18 04:14 Labs: Abnormal Lab Results - Last 24 Hours (Table) 11/12/18 11/12/18 11/12/18 Range/Units 00:13 00:21 04:05 WBC (3.8-10.6) k/uL RBC (3.80-5.40) m/uL Hgb (11.4-16.0) gm/dL Hct (34.0-46.0) % MCHC (31.0-37.0) g/dL RDW (11.5-15.5) % Plt Count (150-450) k/uL Neutrophils # (1.3-7.7) k/uL APTT (22.0-30.0) sec Sodium (137-145) mmol/L BUN (7-17) mg/dL Creatinine (0.52-1.04) mg/dL Glucose (74-99) mg/dL POC Glucose (mg/dL) 463 H 353 H 309 H (75-99) mg/dL Calcium (8.4-10.2) mg/dL Phosphorus (2.5-4.5) mg/dL AST (14-36) U/L ALT (9-52) U/L Alkaline Phosphatase (38-126) U/L Total Protein (6.3-8.2) g/dL Albumin (3.5-5.0) g/dL 11/12/18 11/14/18 11/14/18 Range/Units 04:07 00:25 00:58 WBC (3.8-10.6) k/uL RBC (3.80-5.40) m/uL Hgb (11.4-16.0) gm/dL Hct (34.0-46.0) % MCHC (31.0-37.0) g/dL RDW (11.5-15.5) % Plt Count (150-450) k/uL Neutrophils # (1.3-7.7) k/uL APTT (22.0-30.0) sec Sodium (137-145) mmol/L BUN (7-17) mg/dL Creatinine (0.52-1.04) mg/dL Glucose (74-99) mg/dL POC Glucose (mg/dL) 251 H 101 H 104 H (75-99) mg/dL Calcium (8.4-10.2) mg/dL Phosphorus (2.5-4.5) mg/dL AST (14-36) U/L ALT (9-52) U/L Alkaline Phosphatase (38-126) U/L Total Protein (6.3-8.2) g/dL Albumin (3.5-5.0) g/dL 11/14/18 11/14/18 11/14/18 Range/Units 02:16 03:04 04:02 WBC (3.8-10.6) k/uL RBC (3.80-5.40) m/uL Hgb (11.4-16.0) gm/dL Hct (34.0-46.0) % MCHC (31.0-37.0) g/dL RDW (11.5-15.5) % Plt Count (150-450) k/uL Neutrophils # (1.3-7.7) k/uL APTT (22.0-30.0) sec Sodium (137-145) mmol/L BUN (7-17) mg/dL Creatinine (0.52-1.04) mg/dL Glucose (74-99) mg/dL POC Glucose (mg/dL) 219 H 190 H 143 H (75-99) mg/dL Calcium (8.4-10.2) mg/dL Phosphorus (2.5-4.5) mg/dL AST (14-36) U/L ALT (9-52) U/L Alkaline Phosphatase (38-126) U/L Total Protein (6.3-8.2) g/dL Albumin (3.5-5.0) g/dL 11/14/18 11/14/18 11/14/18 Range/Units 04:07 04:07 04:33 WBC 12.6 H (3.8-10.6) k/uL RBC 2.98 L (3.80-5.40) m/uL Hgb 8.9 L (11.4-16.0) gm/dL Hct 29.0 L (34.0-46.0) % MCHC 30.6 L (31.0-37.0) g/dL RDW 19.0 H (11.5-15.5) % Plt Count 148 L (150-450) k/uL Neutrophils # 10.3 H (1.3-7.7) k/uL APTT 60.9 H (22.0-30.0) sec Sodium 131 L (137-145) mmol/L BUN 44 H (7-17) mg/dL Creatinine 4.99 H (0.52-1.04) mg/dL Glucose 182 H (74-99) mg/dL POC Glucose (mg/dL) (75-99) mg/dL Calcium 6.8 L (8.4-10.2) mg/dL Phosphorus 5.4 H (2.5-4.5) mg/dL AST 509 H (14-36) U/L ALT 1296 H (9-52) U/L Alkaline Phosphatase 144 H (38-126) U/L Total Protein 4.1 L (6.3-8.2) g/dL Albumin 1.9 L (3.5-5.0) g/dL 11/14/18 11/14/18 11/14/18 Range/Units 05:04 05:59 07:45 WBC (3.8-10.6) k/uL RBC (3.80-5.40) m/uL Hgb (11.4-16.0) gm/dL Hct (34.0-46.0) % MCHC (31.0-37.0) g/dL RDW (11.5-15.5) % Plt Count (150-450) k/uL Neutrophils # (1.3-7.7) k/uL APTT (22.0-30.0) sec Sodium (137-145) mmol/L BUN (7-17) mg/dL Creatinine (0.52-1.04) mg/dL Glucose (74-99) mg/dL POC Glucose (mg/dL) 141 H 164 H 172 H (75-99) mg/dL Calcium (8.4-10.2) mg/dL Phosphorus (2.5-4.5) mg/dL AST (14-36) U/L ALT (9-52) U/L Alkaline Phosphatase (38-126) U/L Total Protein (6.3-8.2) g/dL Albumin (3.5-5.0) g/dL 11/14/18 11/14/18 11/14/18 Range/Units 09:17 11:07 12:12 WBC (3.8-10.6) k/uL RBC (3.80-5.40) m/uL Hgb (11.4-16.0) gm/dL Hct (34.0-46.0) % MCHC (31.0-37.0) g/dL RDW (11.5-15.5) % Plt Count (150-450) k/uL Neutrophils # (1.3-7.7) k/uL APTT (22.0-30.0) sec Sodium (137-145) mmol/L BUN (7-17) mg/dL Creatinine (0.52-1.04) mg/dL Glucose (74-99) mg/dL POC Glucose (mg/dL) 141 H 141 H 139 H (75-99) mg/dL Calcium (8.4-10.2) mg/dL Phosphorus (2.5-4.5) mg/dL AST (14-36) U/L ALT (9-52) U/L Alkaline Phosphatase (38-126) U/L Total Protein (6.3-8.2) g/dL Albumin (3.5-5.0) g/dL 11/14/18 11/14/18 11/14/18 Range/Units 13:01 13:59 15:20 WBC (3.8-10.6) k/uL RBC (3.80-5.40) m/uL Hgb (11.4-16.0) gm/dL Hct (34.0-46.0) % MCHC (31.0-37.0) g/dL RDW (11.5-15.5) % Plt Count (150-450) k/uL Neutrophils # (1.3-7.7) k/uL APTT (22.0-30.0) sec Sodium (137-145) mmol/L BUN (7-17) mg/dL Creatinine (0.52-1.04) mg/dL Glucose (74-99) mg/dL POC Glucose (mg/dL) 145 H 181 H 160 H (75-99) mg/dL Calcium (8.4-10.2) mg/dL Phosphorus (2.5-4.5) mg/dL AST (14-36) U/L ALT (9-52) U/L Alkaline Phosphatase (38-126) U/L Total Protein (6.3-8.2) g/dL Albumin (3.5-5.0) g/dL 11/14/18 11/14/18 11/14/18 Range/Units 16:12 18:25 19:18 WBC (3.8-10.6) k/uL RBC (3.80-5.40) m/uL Hgb (11.4-16.0) gm/dL Hct (34.0-46.0) % MCHC (31.0-37.0) g/dL RDW (11.5-15.5) % Plt Count (150-450) k/uL Neutrophils # (1.3-7.7) k/uL APTT (22.0-30.0) sec Sodium (137-145) mmol/L BUN (7-17) mg/dL Creatinine (0.52-1.04) mg/dL Glucose (74-99) mg/dL POC Glucose (mg/dL) 173 H 155 H 162 H (75-99) mg/dL Calcium (8.4-10.2) mg/dL Phosphorus (2.5-4.5) mg/dL AST (14-36) U/L ALT (9-52) U/L Alkaline Phosphatase (38-126) U/L Total Protein (6.3-8.2) g/dL Albumin (3.5-5.0) g/dL 11/14/18 11/14/18 11/14/18 Range/Units 19:58 22:06 23:03 WBC (3.8-10.6) k/uL RBC (3.80-5.40) m/uL Hgb (11.4-16.0) gm/dL Hct (34.0-46.0) % MCHC (31.0-37.0) g/dL RDW (11.5-15.5) % Plt Count (150-450) k/uL Neutrophils # (1.3-7.7) k/uL APTT (22.0-30.0) sec Sodium (137-145) mmol/L BUN (7-17) mg/dL Creatinine (0.52-1.04) mg/dL Glucose (74-99) mg/dL POC Glucose (mg/dL) 216 H 211 H 196 H (75-99) mg/dL Calcium (8.4-10.2) mg/dL Phosphorus (2.5-4.5) mg/dL AST (14-36) U/L ALT (9-52) U/L Alkaline Phosphatase (38-126) U/L Total Protein (6.3-8.2) g/dL Albumin (3.5-5.0) g/dL Assessment and Plan (1) Anemia, blood loss Narrative/Plan: Anemia of blood loss with patient's initially having reported episodes of melanotic stool and fall in hemoglobin. Hemoglobin has remained stable after upper endoscopy which was negative for any old blood, active bleeding or source of GI bleeding. Current Visit: Yes Status: Acute Code(s): D50.0 - IRON DEFICIENCY ANEMIA SECONDARY TO BLOOD LOSS (CHRONIC) SNOMED Code(s): 158640936 (2) Elevated liver enzymes Narrative/Plan: Likely related to hypoperfusion of the liver/ischemia, with negative viral serology improvement in the liver enzymes as they have been trending down. Current Visit: Yes Status: Acute Code(s): R74.8 - ABNORMAL LEVELS OF OTHER SERUM ENZYMES SNOMED Code(s): 236373522 Plan: Supportive care Continue ICU management Okay for tube feedings Monitor hemoglobin and transfuse as needed Monitor for signs or symptoms of GI bleeding Continue PPI therapy Monitor liver enzymes, his stay began to trend up once again can consider full serology Thank you for allowing us dysphagia in the care of this patient, with the gastroenterology service will stand by, please feel free to call us back with any questions or concerns
[2018-11-15] MEDS: ALBUTEROL NEBULIZED 2.5 MG/3 ML INHALATION PRN ×2 (07:09→11:06)
[2018-11-15 07:12] LABS: Glucose,Whole Blood 178 mg/dL (75-99)
[2018-11-15 07:32] LABS: Glucose,Whole Blood 82 mg/dL (75-99)
[2018-11-15 07:32] LABS: Glucose,Whole Blood 198 mg/dL (75-99)
[2018-11-15 07:32] LABS: Glucose,Whole Blood 212 mg/dL (75-99)
[2018-11-15 07:32] LABS: Glucose,Whole Blood 162 mg/dL (75-99)
[2018-11-15 07:51] LABS: Polychromasia Present
--- NOTE | 2018-11-15 07:52 | P.PN ---
Subjective Progress Note Date: 11/15/18 Principal diagnosis: CHF/cardiomyopathy This is a pleasant 58-year-old female patient with an extensive past medical history for her age consistent of coronary artery disease, peripheral arterial disease, diabetes, hypertension, dyslipidemia, and chronic kidney disease, was admitted to the hospital with chest discomfort and was ruled in for acute non- ST patient myocardial infarction and also with congestive heart failure secondary to systolic dysfunction. The patient was treated medically for the non-STEMI The echocardiogram revealed impaired LV function with EF of 35%, mild aortic stenosis, severe pulmonary hypertension, and moderate tricuspid regurgitation. I'll follow-up with the patient today, 11/15/2018, the patient continues to be intubated and continues to be on ventilator. Hemodynamically she continues to be on norepinephrine but the dose has been coming down. She continues to be in normal sinus mechanism and currently she is on amiodarone by mouth. She is also on anticoagulation with heparin. I will also DC metoprolol. Objective - Vital Signs Vital signs: Vital Signs Temp 98.8 F 11/15/18 04:00 Pulse 70 11/15/18 07:32 Resp 19 11/15/18 07:00 BP 100/45 11/15/18 07:00 Pulse Ox 100 11/15/18 07:00 Intake & Output 11/14/18 11/15/18 11/15/18 18:59 06:59 18:59 Intake Total 5159.411 0072.083 81 Output Total 2509 6 4 Balance -752.835 7172.083 77 Weight 123.1 kg Intake: IV 550 700 50 0.9 NACL 550 600 50 Piperacillin-Tazobactam 2 100 .25 gm In Sodium Chloride 0.9% 100 ml @ 25 mls/hr IVPB Q8H [facility] Rx#: [id number] Intake, IV Titration 826.312 111.083 Amount Dextrose 5% in Water 1, 30 000 ml @ 30 mls/hr IV . Q24H [facility] with Sodium Bicarb (1 Meq/ml) 100 ml Rx#:[id number] Heparin Sod,Pork in 0.45% 250 NaCl 25,000 unit In 0.45 % NaCl 1 250ml.bag @ 8.45 UNITS/KG/HR 9.97 mls/hr IV .Q24H [facility] Rx#: [id number] Insulin Regular 100 unit 20.139 42.943 In Sodium Chloride 0.9% 100 ml @ Per Protocol IV .Q0M [facility] Rx#:[id number] Norepinephrine 16 mg In 190.235 39.585 Sodium Chloride 0.9% 250 ml @ Titrate IV .Q0M [facility] Rx#:[id number] Piperacillin-Tazobactam 3 100 .375 gm In Sodium Chloride 0.9% 100 ml @ 25 mls/hr IVPB Q12HR [facility] Rx #:[id number] Propofol 1,000 mg In 235.938 28.555 Empty Bag 1 bag @ Titrate IV .Q0M [facility] Rx#: [id number] Tube Feeding 184 465 31 Output: Urine 6 6 4 Stool 3 Other 2500 Other: Voiding Method Indwelling Catheter Indwelling Catheter - Constitutional General appearance: Present: no acute distress - Labs CBC & Chem 7: 11/15/18 04:14 11/15/18 04:14 Labs: Abnormal Lab Results - Last 24 Hours (Table) 11/12/18 11/12/18 11/12/18 Range/Units 00:13 00:21 04:05 RBC (3.80-5.40) m/uL Hgb (11.4-16.0) gm/dL Hct (34.0-46.0) % MCHC (31.0-37.0) g/dL RDW (11.5-15.5) % APTT (22.0-30.0) sec ABG pH (7.35-7.45) ABG pCO2 (35-45) mmHg ABG HCO3 (21-25) mmol/L ABG Total CO2 (19-24) mmol/L Sodium (137-145) mmol/L BUN (7-17) mg/dL Creatinine (0.52-1.04) mg/dL Glucose (74-99) mg/dL POC Glucose (mg/dL) 463 H 353 H 309 H (75-99) mg/dL Calcium (8.4-10.2) mg/dL 11/12/18 11/14/18 11/14/18 Range/Units 04:07 07:45 09:17 RBC (3.80-5.40) m/uL Hgb (11.4-16.0) gm/dL Hct (34.0-46.0) % MCHC (31.0-37.0) g/dL RDW (11.5-15.5) % APTT (22.0-30.0) sec ABG pH (7.35-7.45) ABG pCO2 (35-45) mmHg ABG HCO3 (21-25) mmol/L ABG Total CO2 (19-24) mmol/L Sodium (137-145) mmol/L BUN (7-17) mg/dL Creatinine (0.52-1.04) mg/dL Glucose (74-99) mg/dL POC Glucose (mg/dL) 251 H 172 H 141 H (75-99) mg/dL Calcium (8.4-10.2) mg/dL 11/14/18 11/14/18 11/14/18 Range/Units 11:07 12:12 13:01 RBC (3.80-5.40) m/uL Hgb (11.4-16.0) gm/dL Hct (34.0-46.0) % MCHC (31.0-37.0) g/dL RDW (11.5-15.5) % APTT (22.0-30.0) sec ABG pH (7.35-7.45) ABG pCO2 (35-45) mmHg ABG HCO3 (21-25) mmol/L ABG Total CO2 (19-24) mmol/L Sodium (137-145) mmol/L BUN (7-17) mg/dL Creatinine (0.52-1.04) mg/dL Glucose (74-99) mg/dL POC Glucose (mg/dL) 141 H 139 H 145 H (75-99) mg/dL Calcium (8.4-10.2) mg/dL 11/14/18 11/14/18 11/14/18 Range/Units 13:59 15:20 16:12 RBC (3.80-5.40) m/uL Hgb (11.4-16.0) gm/dL Hct (34.0-46.0) % MCHC (31.0-37.0) g/dL RDW (11.5-15.5) % APTT (22.0-30.0) sec ABG pH (7.35-7.45) ABG pCO2 (35-45) mmHg ABG HCO3 (21-25) mmol/L ABG Total CO2 (19-24) mmol/L Sodium (137-145) mmol/L BUN (7-17) mg/dL Creatinine (0.52-1.04) mg/dL Glucose (74-99) mg/dL POC Glucose (mg/dL) 181 H 160 H 173 H (75-99) mg/dL Calcium (8.4-10.2) mg/dL 11/14/18 11/14/18 11/14/18 Range/Units 17:04 18:25 19:18 RBC (3.80-5.40) m/uL Hgb (11.4-16.0) gm/dL Hct (34.0-46.0) % MCHC (31.0-37.0) g/dL RDW (11.5-15.5) % APTT (22.0-30.0) sec ABG pH (7.35-7.45) ABG pCO2 (35-45) mmHg ABG HCO3 (21-25) mmol/L ABG Total CO2 (19-24) mmol/L Sodium (137-145) mmol/L BUN (7-17) mg/dL Creatinine (0.52-1.04) mg/dL Glucose (74-99) mg/dL POC Glucose (mg/dL) 162 H 155 H 162 H (75-99) mg/dL Calcium (8.4-10.2) mg/dL 11/14/18 11/14/18 11/14/18 Range/Units 19:58 21:01 21:02 RBC (3.80-5.40) m/uL Hgb (11.4-16.0) gm/dL Hct (34.0-46.0) % MCHC (31.0-37.0) g/dL RDW (11.5-15.5) % APTT (22.0-30.0) sec ABG pH (7.35-7.45) ABG pCO2 (35-45) mmHg ABG HCO3 (21-25) mmol/L ABG Total CO2 (19-24) mmol/L Sodium (137-145) mmol/L BUN (7-17) mg/dL Creatinine (0.52-1.04) mg/dL Glucose (74-99) mg/dL POC Glucose (mg/dL) 216 H 198 H 212 H (75-99) mg/dL Calcium (8.4-10.2) mg/dL 11/14/18 11/14/18 11/14/18 Range/Units 22:06 23:03 23:56 RBC (3.80-5.40) m/uL Hgb (11.4-16.0) gm/dL Hct (34.0-46.0) % MCHC (31.0-37.0) g/dL RDW (11.5-15.5) % APTT (22.0-30.0) sec ABG pH (7.35-7.45) ABG pCO2 (35-45) mmHg ABG HCO3 (21-25) mmol/L ABG Total CO2 (19-24) mmol/L Sodium (137-145) mmol/L BUN (7-17) mg/dL Creatinine (0.52-1.04) mg/dL Glucose (74-99) mg/dL POC Glucose (mg/dL) 211 H 196 H 202 H (75-99) mg/dL Calcium (8.4-10.2) mg/dL 11/15/18 11/15/18 11/15/18 Range/Units 01:02 01:58 02:56 RBC (3.80-5.40) m/uL Hgb (11.4-16.0) gm/dL Hct (34.0-46.0) % MCHC (31.0-37.0) g/dL RDW (11.5-15.5) % APTT (22.0-30.0) sec ABG pH (7.35-7.45) ABG pCO2 (35-45) mmHg ABG HCO3 (21-25) mmol/L ABG Total CO2 (19-24) mmol/L Sodium (137-145) mmol/L BUN (7-17) mg/dL Creatinine (0.52-1.04) mg/dL Glucose (74-99) mg/dL POC Glucose (mg/dL) 187 H 188 H 183 H (75-99) mg/dL Calcium (8.4-10.2) mg/dL 11/15/18 11/15/18 11/15/18 Range/Units 03:58 04:14 04:14 RBC 2.87 L (3.80-5.40) m/uL Hgb 8.2 L (11.4-16.0) gm/dL Hct 28.1 L (34.0-46.0) % MCHC 29.1 L (31.0-37.0) g/dL RDW 19.9 H (11.5-15.5) % APTT 48.7 H (22.0-30.0) sec ABG pH (7.35-7.45) ABG pCO2 (35-45) mmHg ABG HCO3 (21-25) mmol/L ABG Total CO2 (19-24) mmol/L Sodium (137-145) mmol/L BUN (7-17) mg/dL Creatinine (0.52-1.04) mg/dL Glucose (74-99) mg/dL POC Glucose (mg/dL) 183 H (75-99) mg/dL Calcium (8.4-10.2) mg/dL 11/15/18 11/15/18 11/15/18 Range/Units 04:14 05:04 05:40 RBC (3.80-5.40) m/uL Hgb (11.4-16.0) gm/dL Hct (34.0-46.0) % MCHC (31.0-37.0) g/dL RDW (11.5-15.5) % APTT (22.0-30.0) sec ABG pH 7.30 L (7.35-7.45) ABG pCO2 52 H (35-45) mmHg ABG HCO3 26 H (21-25) mmol/L ABG Total CO2 27 H (19-24) mmol/L Sodium 133 L (137-145) mmol/L BUN 37 H (7-17) mg/dL Creatinine 4.54 H (0.52-1.04) mg/dL Glucose 166 H (74-99) mg/dL POC Glucose (mg/dL) 175 H (75-99) mg/dL Calcium 7.2 L (8.4-10.2) mg/dL 11/15/18 11/15/18 Range/Units 06:16 07:00 RBC (3.80-5.40) m/uL Hgb (11.4-16.0) gm/dL Hct (34.0-46.0) % MCHC (31.0-37.0) g/dL RDW (11.5-15.5) % APTT (22.0-30.0) sec ABG pH (7.35-7.45) ABG pCO2 (35-45) mmHg ABG HCO3 (21-25) mmol/L ABG Total CO2 (19-24) mmol/L Sodium (137-145) mmol/L BUN (7-17) mg/dL Creatinine (0.52-1.04) mg/dL Glucose (74-99) mg/dL POC Glucose (mg/dL) 155 H 178 H (75-99) mg/dL Calcium (8.4-10.2) mg/dL Assessment and Plan Assessment: Assessment #1 systolic congestive heart failure exacerbation #2 acute non-ST elevation myocardial infarction #3 acute on chronic renal failure #4 peripheral vascular disease #5 systemic hypertension #6 hyperkalemia Plan #1 continue the dialysis #2 the right wean the patient from the vasopressors #3 continue amiodarone by mouth. #4 DC metoprolol #5 continue anticoagulation was heparin #6 changed to oral anticoagulation down the line
--- NOTE | 2018-11-15 08:11 | XR ---
EXAMINATION TYPE: XR chest 1V portable DATE OF EXAM: 11/15/2018 CLINICAL HISTORY: Difficulty breathing progress study. TECHNIQUE: Single AP portable semiupright view of the chest is obtained. COMPARISON: Chest x-ray from one day earlier and older studies. FINDINGS: The endotracheal tube, orogastric tube, and right internal jugular central venous catheter are all stable in appearance. Cardiac silhouette size is stable and mildly enlarged. There is persis tent bibasilar opacities. Overlying sternal wires and right hilar surgical clips are redemonstrated. Osseous structures are intact. IMPRESSION: Overall stable findings, mild cardiomegaly with small bilateral pleural effusions and a ssociated bibasilar acute atelectasis and/or infiltrate all redemonstrated.
[2018-11-15 08:18] LABS: Glucose,Whole Blood 164 mg/dL (75-99)
[2018-11-15] MEDS: NICOTINE 21MG/24HR PATCH TRANSDERM SCH (08:51)
[2018-11-15] MEDS: CHLORHEXIDINE GLUCONATE 15 ML CUP MUCOUS MEM SCH ×2 (08:51→20:46)
[2018-11-15] MEDS: PANTOPRAZOLE 40 MG/10 ML VIAL IV SCH ×2 (08:51→20:46)
[2018-11-15] MEDS: AMIODARONE 200 MG TAB PO SCH ×2 (08:52→20:46)
[2018-11-15] MEDS: FERROUS SULFATE 325 MG TAB PO SCH (08:52)
[2018-11-15] MEDS: ASPIRIN 81 MG PO SCH (08:52)
[2018-11-15] MEDS: CALCIUM ACETATE 667 MG CAP PO SCH ×3 (08:52→18:40)
[2018-11-15] MEDS: PROPOFOL 1,000 MG in EMPTY BAG 1 BAG IV SCH ×3 (09:14→20:13)
[2018-11-15 09:23] LABS: Glucose,Whole Blood 191 mg/dL (75-99)
--- NOTE | 2018-11-15 10:11 | P.PN ---
Subjective Patient is seen in follow-up for acute kidney injury on chronic kidney disease. Patient has chronic kidney disease stage IV with baseline creatinine near 3 secondary to diabetic kidney disease. Due to worsening renal function and oliguria, she was started on hemodialysis on November 07. She remains intubated. Currently on 11 mics of Levophed. Remains oliguric. No active bleeding. Hemoglobin stable. She tolerated hemodialysis well yesterday with 2- 1/2 L ultrafiltration. Afebrile. Currently on vasopressors. General: The patient appeared well nourished and normally developed. HEENT: Head exam is unremarkable. Neck is without jugular venous distension. Intubated. LUNGS: Breath sounds decreased. HEART: Rate and Rhythm are regular. First and second heart sounds normal. No murmurs, rubs or gallops. ABDOMEN: Abdominal exam reveals normal bowel sounds. Non-tender and non- distended. No evidence of peritonitis. EXTREMITITES: Trace edema. Objective - Vital Signs Vital signs: Vital Signs Temp 98.8 F 11/15/18 04:00 Pulse 70 11/15/18 07:32 Resp 19 11/15/18 07:00 BP 100/45 11/15/18 07:00 Pulse Ox 100 11/15/18 07:00 Intake & Output 11/14/18 11/15/18 11/15/18 18:59 06:59 18:59 Intake Total 4697.247 9979.083 86.824 Output Total 2509 6 4 Balance -292.585 7427.083 82.824 Weight 123.1 kg Intake: IV 550 700 50 0.9 NACL 550 600 50 Piperacillin-Tazobactam 2 100 .25 gm In Sodium Chloride 0.9% 100 ml @ 25 mls/hr IVPB Q8H [facility] Rx#: [id number] Intake, IV Titration 826.312 211.083 5.824 Amount Dextrose 5% in Water 1, 30 000 ml @ 30 mls/hr IV . Q24H [facility] with Sodium Bicarb (1 Meq/ml) 100 ml Rx#:[id number] Heparin Sod,Pork in 0.45% 250 NaCl 25,000 unit In 0.45 % NaCl 1 250ml.bag @ 8.45 UNITS/KG/HR 9.97 mls/hr IV .Q24H [facility] Rx#: [id number] Insulin Regular 100 unit 20.139 42.943 5.824 In Sodium Chloride 0.9% 100 ml @ Per Protocol IV .Q0M [facility] Rx#:[id number] Norepinephrine 16 mg In 190.235 39.585 Sodium Chloride 0.9% 250 ml @ Titrate IV .Q0M [facility] Rx#:[id number] Piperacillin-Tazobactam 3 100 .375 gm In Sodium Chloride 0.9% 100 ml @ 25 mls/hr IVPB Q12HR [facility] Rx #:[id number] Propofol 1,000 mg In 235.938 128.555 Empty Bag 1 bag @ Titrate IV .Q0M [facility] Rx#: [id number] Tube Feeding 184 465 31 Output: Urine 6 6 4 Stool 3 Other 2500 Other: Voiding Method Indwelling Catheter Indwelling Catheter - Labs CBC & Chem 7: 11/15/18 04:14 11/15/18 04:14 Labs: Abnormal Lab Results - Last 24 Hours (Table) 11/14/18 11/14/18 11/14/18 Range/Units 11:07 12:12 13:01 RBC (3.80-5.40) m/uL Hgb (11.4-16.0) gm/dL Hct (34.0-46.0) % MCHC (31.0-37.0) g/dL RDW (11.5-15.5) % APTT (22.0-30.0) sec ABG pH (7.35-7.45) ABG pCO2 (35-45) mmHg ABG HCO3 (21-25) mmol/L ABG Total CO2 (19-24) mmol/L Sodium (137-145) mmol/L BUN (7-17) mg/dL Creatinine (0.52-1.04) mg/dL Glucose (74-99) mg/dL POC Glucose (mg/dL) 141 H 139 H 145 H (75-99) mg/dL Calcium (8.4-10.2) mg/dL 11/14/18 11/14/18 11/14/18 Range/Units 13:59 15:20 16:12 RBC (3.80-5.40) m/uL Hgb (11.4-16.0) gm/dL Hct (34.0-46.0) % MCHC (31.0-37.0) g/dL RDW (11.5-15.5) % APTT (22.0-30.0) sec ABG pH (7.35-7.45) ABG pCO2 (35-45) mmHg ABG HCO3 (21-25) mmol/L ABG Total CO2 (19-24) mmol/L Sodium (137-145) mmol/L BUN (7-17) mg/dL Creatinine (0.52-1.04) mg/dL Glucose (74-99) mg/dL POC Glucose (mg/dL) 181 H 160 H 173 H (75-99) mg/dL Calcium (8.4-10.2) mg/dL 11/14/18 11/14/18 11/14/18 Range/Units 17:04 18:25 19:18 RBC (3.80-5.40) m/uL Hgb (11.4-16.0) gm/dL Hct (34.0-46.0) % MCHC (31.0-37.0) g/dL RDW (11.5-15.5) % APTT (22.0-30.0) sec ABG pH (7.35-7.45) ABG pCO2 (35-45) mmHg ABG HCO3 (21-25) mmol/L ABG Total CO2 (19-24) mmol/L Sodium (137-145) mmol/L BUN (7-17) mg/dL Creatinine (0.52-1.04) mg/dL Glucose (74-99) mg/dL POC Glucose (mg/dL) 162 H 155 H 162 H (75-99) mg/dL Calcium (8.4-10.2) mg/dL 11/14/18 11/14/18 11/14/18 Range/Units 19:58 21:01 21:02 RBC (3.80-5.40) m/uL Hgb (11.4-16.0) gm/dL Hct (34.0-46.0) % MCHC (31.0-37.0) g/dL RDW (11.5-15.5) % APTT (22.0-30.0) sec ABG pH (7.35-7.45) ABG pCO2 (35-45) mmHg ABG HCO3 (21-25) mmol/L ABG Total CO2 (19-24) mmol/L Sodium (137-145) mmol/L BUN (7-17) mg/dL Creatinine (0.52-1.04) mg/dL Glucose (74-99) mg/dL POC Glucose (mg/dL) 216 H 198 H 212 H (75-99) mg/dL Calcium (8.4-10.2) mg/dL 11/14/18 11/14/18 11/14/18 Range/Units 22:06 23:03 23:56 RBC (3.80-5.40) m/uL Hgb (11.4-16.0) gm/dL Hct (34.0-46.0) % MCHC (31.0-37.0) g/dL RDW (11.5-15.5) % APTT (22.0-30.0) sec ABG pH (7.35-7.45) ABG pCO2 (35-45) mmHg ABG HCO3 (21-25) mmol/L ABG Total CO2 (19-24) mmol/L Sodium (137-145) mmol/L BUN (7-17) mg/dL Creatinine (0.52-1.04) mg/dL Glucose (74-99) mg/dL POC Glucose (mg/dL) 211 H 196 H 202 H (75-99) mg/dL Calcium (8.4-10.2) mg/dL 11/15/18 11/15/18 11/15/18 Range/Units 01:02 01:58 02:56 RBC (3.80-5.40) m/uL Hgb (11.4-16.0) gm/dL Hct (34.0-46.0) % MCHC (31.0-37.0) g/dL RDW (11.5-15.5) % APTT (22.0-30.0) sec ABG pH (7.35-7.45) ABG pCO2 (35-45) mmHg ABG HCO3 (21-25) mmol/L ABG Total CO2 (19-24) mmol/L Sodium (137-145) mmol/L BUN (7-17) mg/dL Creatinine (0.52-1.04) mg/dL Glucose (74-99) mg/dL POC Glucose (mg/dL) 187 H 188 H 183 H (75-99) mg/dL Calcium (8.4-10.2) mg/dL 11/15/18 11/15/18 11/15/18 Range/Units 03:58 04:14 04:14 RBC 2.87 L (3.80-5.40) m/uL Hgb 8.2 L (11.4-16.0) gm/dL Hct 28.1 L (34.0-46.0) % MCHC 29.1 L (31.0-37.0) g/dL RDW 19.9 H (11.5-15.5) % APTT 48.7 H (22.0-30.0) sec ABG pH (7.35-7.45) ABG pCO2 (35-45) mmHg ABG HCO3 (21-25) mmol/L ABG Total CO2 (19-24) mmol/L Sodium (137-145) mmol/L BUN (7-17) mg/dL Creatinine (0.52-1.04) mg/dL Glucose (74-99) mg/dL POC Glucose (mg/dL) 183 H (75-99) mg/dL Calcium (8.4-10.2) mg/dL 11/15/18 11/15/18 11/15/18 Range/Units 04:14 05:04 05:40 RBC (3.80-5.40) m/uL Hgb (11.4-16.0) gm/dL Hct (34.0-46.0) % MCHC (31.0-37.0) g/dL RDW (11.5-15.5) % APTT (22.0-30.0) sec ABG pH 7.30 L (7.35-7.45) ABG pCO2 52 H (35-45) mmHg ABG HCO3 26 H (21-25) mmol/L ABG Total CO2 27 H (19-24) mmol/L Sodium 133 L (137-145) mmol/L BUN 37 H (7-17) mg/dL Creatinine 4.54 H (0.52-1.04) mg/dL Glucose 166 H (74-99) mg/dL POC Glucose (mg/dL) 175 H (75-99) mg/dL Calcium 7.2 L (8.4-10.2) mg/dL 11/15/18 11/15/18 11/15/18 Range/Units 06:16 07:00 08:07 RBC (3.80-5.40) m/uL Hgb (11.4-16.0) gm/dL Hct (34.0-46.0) % MCHC (31.0-37.0) g/dL RDW (11.5-15.5) % APTT (22.0-30.0) sec ABG pH (7.35-7.45) ABG pCO2 (35-45) mmHg ABG HCO3 (21-25) mmol/L ABG Total CO2 (19-24) mmol/L Sodium (137-145) mmol/L BUN (7-17) mg/dL Creatinine (0.52-1.04) mg/dL Glucose (74-99) mg/dL POC Glucose (mg/dL) 155 H 178 H 164 H (75-99) mg/dL Calcium (8.4-10.2) mg/dL 11/15/18 Range/Units 09:12 RBC (3.80-5.40) m/uL Hgb (11.4-16.0) gm/dL Hct (34.0-46.0) % MCHC (31.0-37.0) g/dL RDW (11.5-15.5) % APTT (22.0-30.0) sec ABG pH (7.35-7.45) ABG pCO2 (35-45) mmHg ABG HCO3 (21-25) mmol/L ABG Total CO2 (19-24) mmol/L Sodium (137-145) mmol/L BUN (7-17) mg/dL Creatinine (0.52-1.04) mg/dL Glucose (74-99) mg/dL POC Glucose (mg/dL) 191 H (75-99) mg/dL Calcium (8.4-10.2) mg/dL Assessment and Plan Plan: Assessment: 1. Acute kidney injury secondary to ATN secondary to hypotension. Creatinine peaked at 5.85 and November 07 and was also oliguric. Currently hemodialysis dependent. No hydronephrosis noted on renal ultrasound. 2. Chronic kidney disease stage IV secondary to diabetic kidney disease and nephrosclerosis with baseline creatinine near 3 according to the patient. Patient follows with a family practice physician assistant out of [place]. 3. Systolic CHF with ejection fraction of 30-35% with severe pulmonary hypertension and moderate tricuspid regurgitation. 4. Volume overload. Better. 5. Hyponatremia secondary to acute kidney injury. Better. 6. Hyperkalemia secondary to acute kidney injury. Improved with dialysis. 7. Diabetes mellitus. 8. Hypotension maintained on 11 mics of Levophed. 9. Hyperphosphatemia secondary to acute kidney injury. Maintained on PhosLo. 10. Acute blood loss anemia secondary to GI bleed. Status post blood transfusion and IV DDAVP on November 10. Status post EGD on November 10 which revealed ischemic areas in the antrum. 11. NSTEMI. Cardiology following. 12. A. fib with RVR status post amiodarone drip. Now rate controlled. Plan: She tolerated hemodialysis well yesterday with 2.5 L ultrafiltration. Hemodialysis today. Next treatment tomorrow. Wean Levophed. Continue to monitor renal function and urine output.
[2018-11-15 10:23] LABS: Glucose,Whole Blood 173 mg/dL (75-99)
[2018-11-15] MEDS: SODIUM CHLORIDE 0.9% 1,000 ML IV SCH (10:37)
[2018-11-15 11:14] LABS: Glucose,Whole Blood 166 mg/dL (75-99)
[2018-11-15 12:04] LABS: Glucose,Whole Blood 162 mg/dL (75-99)
[2018-11-15] MEDS: PIPERACILLIN-TAZOBACTAM 3.375 GM in SODIUM CHLORIDE 0.9% 100 ML IVPB SCH ×2 (12:46→20:41)
[2018-11-15 13:19] LABS: Glucose,Whole Blood 165 mg/dL (75-99)
[2018-11-15 14:09] LABS: Glucose,Whole Blood 167 mg/dL (75-99)
[2018-11-15 15:25] LABS: Glucose,Whole Blood 140 mg/dL (75-99)
[2018-11-15 16:33] LABS: Glucose,Whole Blood 173 mg/dL (75-99)
[2018-11-15 16:58] LABS: Glucose,Whole Blood 154 mg/dL (75-99)
[2018-11-15 18:14] LABS: Glucose,Whole Blood 160 mg/dL (75-99)
--- NOTE | 2018-11-15 18:17 | P.PN ---
Subjective Progress Note Date: 11/15/18 Principal diagnosis: Acute renal failure, altered mental status likely related to acute renal failure , hypotension, severe sepsis, hypertension, A. fib with RVR Right lower extremity venous thrombosis, chronic intermittent thromboembolism, pulmonary hypertension, biventricular failure, acute on chronic systolic heart failure, acute on chronic renal failure is stage IV, small bilateral pleural effusion likely related to heart failure, morbid obesity, suspect sleep disorder breathing and sleep apnea 11/15/2018, patient seen eval examined during the rounds clinically has been doing well awake and alert levo fed drip is down to 11 mics, ventilator setting remains stable, patient remains on heparin drip, currently patient is assist control rate of 20 breathing 20 tidal volume of 5oo, 40% oxygen and 5 of PEEP, the acral cyanosis essentially unchanged, patient has very minimal urine output , labs reviewed medications reviewed, we'll taper down the propofol drip with that and hemodynamics will improve also can initiate the weaning trial will see if patient can tolerate a trial for half an hour with CPAP 5 and pressure support of 5 11/14/2018, patient seen eval examined during the rounds clinically has been doing essentially unchanged status post hemodialysis 1.5 L of fluid has been removed, labs reviewed medications reviewed care plan discussed, the BUN/ creatinine improved to 44 and 4.9, liver function continued to improve 11/13/2018, patient seen and evaluated examined during the rounds, patient does withdraws to pain and physical stimuli, she is sedated with propofol drip, patient is on 25 mics of propofol if lower down becomes restless less anxious and agitated, patient has been remain on heparin drip tolerating very well no evidence of bleeding has been seen, the acral cyanosis in the upper extremity appears to have improved today however in the lower extremity remains unchanged , patient is also on bicarb drip U fed drip is down to 14 mics which is gradually being titrated patient is on insulin drip 2.5 units an hour for hyperglycemia, her peak airway pressures 33 her vent settings include assist control rate of 20 breathing 20 tidal volume 505 of PEEP and 40% oxygen, her sputum culture results and reports are reviewed no growth has been noted blood cultures no growth so far, patient was able to get the hemodialysis yesterday 1.5 L of fluid has been removed, labs from today reviewed white cell count continue to go down is 10,900 hemoglobin remained stable 8.5, patient is well anticoagulated with IV heparin, platelet count remains stable but however slow decline has as been noted which is being monitored observe his 135, patient is on tube feed tolerating very well slowly been escalated, BUN/creatinine has improved to 38 and 4.1, sodium is 132, LFT continued to improve AST/ALT now in to low thousands, IV amiodarone infusion has a stab patient is now on by mouth amiodarone no new episodes of A. fib RVR or V. tach has been noted, chest x-ray remains stable, critical care time spent 45 minutes 11/12/2018, patient seen eval examined during the rounds clinically patient is slightly improved in terms of laboratory data and hemodynamic support, patient remains sedated with propofol drip currently the dose is down to 40 mics, it is down to 20 mics patient continued to manifest ischemic changes in the toes as well as in the fingertips, bicarb drip is being given to counteract severe profound metabolic peripheral acidosis, she remains on full ventilator support with assist control of 20 tidal volume of 500, PEEP of 5, FiO2 down to 65%, oxygen saturation is 100% as checked with the right ear lobe, patient is now in sinus rhythm has been in A. fib but spontaneously converted patient has been amiodarone IV which is to be switched to oral aspirin cardiovascular services, current infusions include heparin drip tolerating very well no new bleeding has been seen along with levo fed drip 20 mics, propofol drip and bicarb drip, respiratory secretions are minimal, bowel sounds are hypoactive, no evidence of bleeding has been seen patient to be started on tube feed and dialysis is being planned later on today as well as per discussion with the renal services, answers are all negative so far, chest x-ray shows right lower lobe subsegmental atelectasis small effusion which is stable, leukocytosis improved today compared to yesterday, critical care time spent 35 minutes 11/11/2018, patient seen eval examined during the rounds clinically patient remains sedated and intubated, currently patient is on now full ventilator support she is on assist control rate of 20 breathing 20 tidal volume of 505 of PEEP and 75% oxygen, patient remains on heparin drip which is has been started this morning, also on propofol drip 45 mics, levo fed drip is off 24 mics, patient does have been noted to have as a spasm in the upper extremity as well as lower extremity with bluish discoloration, patient has being restarted on heparin drip to optimize the levo fed to contract severe profound metabolic acidosis, reviewed medications reviewed care plan discussed with the staff at length, patient will need a arterial line attempted but unable to cannulate the femoral artery, however able to access the femoral vein a triple-lumen catheter most of the infusions are incompatible with each other, dialysis is not performed due to unstable situation and condition, urine output remains very minimal, Keofeed to be started heparin to be continued monitor hemoglobin closely, critical care time spent 45 minutes including procedure, Patient was intubated last night due to severe tachypnea and tachycardia and intermittent runs of the V. tach along with atrial fibrillation, patient has been initiated amiodarone drip as well, given that ABG could not be obtained venous blood gases are being used 11/10/2018, patient seen eval reexamined during the rounds clinically patient has a not much change from baseline has been transfused 1 unit of packed RBC patient to has been more lethargic but readily arousable arterial blood gas couldn't be obtained a venous blood gas has been performed continued to show respiratory acidosis combined with metabolic acidosis, patient is due for dialysis today also been planned for EGD which has been performed some gastritis has been noted with some white patches suggestive of ischemic changes cannot be excluded for details please refer to EGD note, patient remains on 7 mics of levo fed which is to be titrated down as blood pressure has improved, we will do low-dose bicarb drip as well patient did receive a dose of desmopressin earlier this morning, patient remains on BiPAP 15/10 with the FiO2 to keep saturation over 90-94%, patient remain somnolent and lethargic but readily arousable respond appropriately when awake then goes right back to sleep , patient did receive a dose of Xanax 11/08/2018, patient seen eval reexamined during the rounds clinically patient remains marginal continue require vasopressors currently patient is on 19 mics of levo fed drip, during dialysis patient had episode of the tachyarrhythmia requiring amiodarone now patient after the initial IV boluses back to sinus rhythm, hemodynamic status is overall stable but marginal, urine output remains very low, patient did tolerate the hemodialysis fairly well earlier this morning except the findings as noted to more old bleeding noted it appears to be old blood, patient is currently on desmopressin drip, also has been infused with 1 unit of packed RBC, heparin drip has been on hold since yesterday, vascular surgery has been consulted for evaluation of IVC filter as patient has deep venous thrombosis right lower extremity, sugars continue to be run on the higher side remains on insulin drip, patient is on proton pump inhibitor IV with frequent monitoring with monitoring observation her hemoglobin him to keep hemoglobin over 7 no active bleeding however has been noted by GI services has been consulted as well for GI bleed, Estrace standpoint tolerating BiPAP very well currently patient is on BiPAP with 12 of BiPAP the and 5 EPAP respiratory rate is 22 her spontaneous tidal volumes ranging in mid 400 range, she is on 40 % oxygen, arterial blood gas couldn't be drawn, labs medications and radiographic studies reviewed culture results are reviewed as well no positive cultures been seen patient remains on Zosyn, critical care time spent 35 minutes 11/07/2018, patient seen and evaluated examined during the rounds this morning critical care time spent 40 minutes, patient has removed to the ICU from medical floor as she was hypotensive with poor urine output in addition patient has been more somnolent and lethargic she did have receive a dose of Xanax on the floor, after arrival in ICU patient remains very hypotensive with tachycardia was given multiple fluid boluses to improve the hemodynamics however eventually starting the levo fed drip, patient does have 2 peripheral IVs one of them is not functioning very well, worsening of renal function has been noted the renal services planning to do hemodialysis, patient has very poor peripheral arterial disease unable to obtain ABG in addition to that very poor peripheral pulses are present, patient is arousable opens eyes follow simple commands but remains very anxious and agitated, patient eventually went up to 25 mics of levo fed drip with a systolic blood pressure ranging about 100 210, urine output has been very minimal, given that the lack of ability of IV axis will proceed with a central line however patient needed dialysis port as well will do a trilysis catheter (hemodialysis catheter with extra port), care plan discussed with the vascular surgery as well and renal services planning to do hemodialysis later on today provided hemodynamics remain stable, due to anticipated profound metabolic acidosis patient has been started on bicarb drip , patient is being kept on IV Zosyn heparin has been on hold due to procedures as well as elevated PTT labs reviewed medications reviewed radiographic studies reviewed as well 11/06/2018, patient seen evlauro examined during the rounds clinically patient has a been doing relatively better in terms of shortness of breath and swelling of the lower extremity patient is currently on room air however renal function continued to go up slightly and Lasix dose is being adjusted by renal service labs reviewed medications reviewed for now we'll continue IV heparin hopefully next 24-48 hours we'll switch it to oral anticoagulants 11/05/2018, patient seen eval reexamined during the rounds clinically has been doing relatively better in terms of breathing leg swelling the lower extremity is slightly better patient is on anticoagulation with IV heparin for DVT thrombosis of lower extremity on the right side also probable pulmonary embolism as well Patient presented to the hospital with worsening dyspnea and edema. Patient states she's been getting progressively short of breath over the last 1 week. She initially thought it was asthma but the symptoms did not improve with nebulized treatments. She also noticed edema in her legs. She states she does not take any diuretics at home. She admits to good urine output. No hematuria or dysuria. No vomiting or diarrhea. Oral intake has been fair. Denies use of NSAIDs. Chest CT revealed bilateral pleural effusions. Echocardiogram revealed ejection fraction of 35-40% with severe pulmonary hypertension. Currently maintained on Lasix 40 mg IV twice daily. She has been voiding. No fever or chills. Her duplex ultrasound of the lower extremity came back positive for DVT patient is now being started on IV heparin Objective - Vital Signs Vital signs: Vital Signs Temp 98.2 F 11/15/18 16:00 Pulse 73 11/15/18 17:00 Resp 20 11/15/18 17:00 BP 87/51 11/15/18 17:00 Pulse Ox 98 11/15/18 17:00 Intake & Output 11/14/18 11/15/18 11/15/18 18:59 06:59 18:59 Intake Total 8569.410 8992.083 1116.334 Output Total 2509 6 4 Balance -767.341 7190.083 1112.334 Weight 123.1 kg 127.6 kg Intake: IV 550 700 550 0.9 NACL 550 600 50 Piperacillin-Tazobactam 2 100 .25 gm In Sodium Chloride 0.9% 100 ml @ 25 mls/hr IVPB Q8H [facility] Rx#: [id number] Sodium Chloride 0.9% 1, 500 000 ml @ 50 mls/hr IV . Q20H [facility] Rx#:[id number] Intake, IV Titration 826.312 211.083 258.334 Amount Dextrose 5% in Water 1, 30 000 ml @ 30 mls/hr IV . Q24H [facility] with Sodium Bicarb (1 Meq/ml) 100 ml Rx#:[id number] Heparin Sod,Pork in 0.45% 250 NaCl 25,000 unit In 0.45 % NaCl 1 250ml.bag @ 8.45 UNITS/KG/HR 9.97 mls/hr IV .Q24H [facility] Rx#: [id number] Insulin Regular 100 unit 20.139 42.943 23.207 In Sodium Chloride 0.9% 100 ml @ Per Protocol IV .Q0M [facility] Rx#:[id number] Norepinephrine 16 mg In 190.235 39.585 166.080 Sodium Chloride 0.9% 250 ml @ Titrate IV .Q0M [facility] Rx#:[id number] Piperacillin-Tazobactam 3 100 .375 gm In Sodium Chloride 0.9% 100 ml @ 25 mls/hr IVPB Q12HR [facility] Rx #:[id number] Propofol 1,000 mg In 235.938 128.555 69.047 Empty Bag 1 bag @ Titrate IV .Q0M [facility] Rx#: [id number] Tube Feeding 184 465 248 Other 60 Output: Urine 6 6 4 Stool 3 Other 2500 Other: Voiding Method Indwelling Catheter Indwelling Catheter Indwelling Catheter # Bowel Movements 1 - Exam - Constitutional General appearance: disheveled, mild distress, morbidly obese, intermittently anxious and agitated now relatively more comfortable on full ventilator support - Neck Neck: normal ROM Carotids: bilateral: upstroke normal Thyroid: bilateral: normal size - Respiratory Respiratory: bilateral: CTA, few basal rales, negative: diminished, dullness - Cardiovascular Rhythm: regular Heart sounds: normal: S1, S2 - Integumentary Integumentary: normal turgor Abdomen soft - Neurologic Neurologic: CNII-XII intact - Musculoskeletal Musculoskeletal: Moving all 4 extremity good tone in all 4 extremity, peripheral acral cyanosis in the toes and the fingertips noted as dictated above , the cyanosis in the fingertips have appeared to improve - Psychiatric Psychiatric: A&O x's 2, in appropriate affect, at times become anxious and agitated and combative - Labs CBC & Chem 7: 11/15/18 04:14 11/15/18 04:14 Labs: Abnormal Lab Results - Last 24 Hours (Table) 11/14/18 11/14/18 11/14/18 Range/Units 17:04 18:25 19:18 RBC (3.80-5.40) m/uL Hgb (11.4-16.0) gm/dL Hct (34.0-46.0) % MCHC (31.0-37.0) g/dL RDW (11.5-15.5) % APTT (22.0-30.0) sec ABG pH (7.35-7.45) ABG pCO2 (35-45) mmHg ABG HCO3 (21-25) mmol/L ABG Total CO2 (19-24) mmol/L Sodium (137-145) mmol/L BUN (7-17) mg/dL Creatinine (0.52-1.04) mg/dL Glucose (74-99) mg/dL POC Glucose (mg/dL) 162 H 155 H 162 H (75-99) mg/dL Calcium (8.4-10.2) mg/dL 11/14/18 11/14/18 11/14/18 Range/Units 19:58 21:01 21:02 RBC (3.80-5.40) m/uL Hgb (11.4-16.0) gm/dL Hct (34.0-46.0) % MCHC (31.0-37.0) g/dL RDW (11.5-15.5) % APTT (22.0-30.0) sec ABG pH (7.35-7.45) ABG pCO2 (35-45) mmHg ABG HCO3 (21-25) mmol/L ABG Total CO2 (19-24) mmol/L Sodium (137-145) mmol/L BUN (7-17) mg/dL Creatinine (0.52-1.04) mg/dL Glucose (74-99) mg/dL POC Glucose (mg/dL) 216 H 198 H 212 H (75-99) mg/dL Calcium (8.4-10.2) mg/dL 11/14/18 11/14/18 11/14/18 Range/Units 22:06 23:03 23:56 RBC (3.80-5.40) m/uL Hgb (11.4-16.0) gm/dL Hct (34.0-46.0) % MCHC (31.0-37.0) g/dL RDW (11.5-15.5) % APTT (22.0-30.0) sec ABG pH (7.35-7.45) ABG pCO2 (35-45) mmHg ABG HCO3 (21-25) mmol/L ABG Total CO2 (19-24) mmol/L Sodium (137-145) mmol/L BUN (7-17) mg/dL Creatinine (0.52-1.04) mg/dL Glucose (74-99) mg/dL POC Glucose (mg/dL) 211 H 196 H 202 H (75-99) mg/dL Calcium (8.4-10.2) mg/dL 11/15/18 11/15/18 11/15/18 Range/Units 01:02 01:58 02:56 RBC (3.80-5.40) m/uL Hgb (11.4-16.0) gm/dL Hct (34.0-46.0) % MCHC (31.0-37.0) g/dL RDW (11.5-15.5) % APTT (22.0-30.0) sec ABG pH (7.35-7.45) ABG pCO2 (35-45) mmHg ABG HCO3 (21-25) mmol/L ABG Total CO2 (19-24) mmol/L Sodium (137-145) mmol/L BUN (7-17) mg/dL Creatinine (0.52-1.04) mg/dL Glucose (74-99) mg/dL POC Glucose (mg/dL) 187 H 188 H 183 H (75-99) mg/dL Calcium (8.4-10.2) mg/dL 11/15/18 11/15/18 11/15/18 Range/Units 03:58 04:14 04:14 RBC 2.87 L (3.80-5.40) m/uL Hgb 8.2 L (11.4-16.0) gm/dL Hct 28.1 L (34.0-46.0) % MCHC 29.1 L (31.0-37.0) g/dL RDW 19.9 H (11.5-15.5) % APTT 48.7 H (22.0-30.0) sec ABG pH (7.35-7.45) ABG pCO2 (35-45) mmHg ABG HCO3 (21-25) mmol/L ABG Total CO2 (19-24) mmol/L Sodium (137-145) mmol/L BUN (7-17) mg/dL Creatinine (0.52-1.04) mg/dL Glucose (74-99) mg/dL POC Glucose (mg/dL) 183 H (75-99) mg/dL Calcium (8.4-10.2) mg/dL 11/15/18 11/15/18 11/15/18 Range/Units 04:14 05:04 05:40 RBC (3.80-5.40) m/uL Hgb (11.4-16.0) gm/dL Hct (34.0-46.0) % MCHC (31.0-37.0) g/dL RDW (11.5-15.5) % APTT (22.0-30.0) sec ABG pH 7.30 L (7.35-7.45) ABG pCO2 52 H (35-45) mmHg ABG HCO3 26 H (21-25) mmol/L ABG Total CO2 27 H (19-24) mmol/L Sodium 133 L (137-145) mmol/L BUN 37 H (7-17) mg/dL Creatinine 4.54 H (0.52-1.04) mg/dL Glucose 166 H (74-99) mg/dL POC Glucose (mg/dL) 175 H (75-99) mg/dL Calcium 7.2 L (8.4-10.2) mg/dL 11/15/18 11/15/18 11/15/18 Range/Units 06:16 07:00 08:07 RBC (3.80-5.40) m/uL Hgb (11.4-16.0) gm/dL Hct (34.0-46.0) % MCHC (31.0-37.0) g/dL RDW (11.5-15.5) % APTT (22.0-30.0) sec ABG pH (7.35-7.45) ABG pCO2 (35-45) mmHg ABG HCO3 (21-25) mmol/L ABG Total CO2 (19-24) mmol/L Sodium (137-145) mmol/L BUN (7-17) mg/dL Creatinine (0.52-1.04) mg/dL Glucose (74-99) mg/dL POC Glucose (mg/dL) 155 H 178 H 164 H (75-99) mg/dL Calcium (8.4-10.2) mg/dL 11/15/18 11/15/18 11/15/18 Range/Units 09:12 10:11 11:03 RBC (3.80-5.40) m/uL Hgb (11.4-16.0) gm/dL Hct (34.0-46.0) % MCHC (31.0-37.0) g/dL RDW (11.5-15.5) % APTT (22.0-30.0) sec ABG pH (7.35-7.45) ABG pCO2 (35-45) mmHg ABG HCO3 (21-25) mmol/L ABG Total CO2 (19-24) mmol/L Sodium (137-145) mmol/L BUN (7-17) mg/dL Creatinine (0.52-1.04) mg/dL Glucose (74-99) mg/dL POC Glucose (mg/dL) 191 H 173 H 166 H (75-99) mg/dL Calcium (8.4-10.2) mg/dL 11/15/18 11/15/18 11/15/18 Range/Units 11:53 13:08 13:57 RBC (3.80-5.40) m/uL Hgb (11.4-16.0) gm/dL Hct (34.0-46.0) % MCHC (31.0-37.0) g/dL RDW (11.5-15.5) % APTT (22.0-30.0) sec ABG pH (7.35-7.45) ABG pCO2 (35-45) mmHg ABG HCO3 (21-25) mmol/L ABG Total CO2 (19-24) mmol/L Sodium (137-145) mmol/L BUN (7-17) mg/dL Creatinine (0.52-1.04) mg/dL Glucose (74-99) mg/dL POC Glucose (mg/dL) 162 H 165 H 167 H (75-99) mg/dL Calcium (8.4-10.2) mg/dL 11/15/18 11/15/18 11/15/18 Range/Units 15:14 16:22 16:47 RBC (3.80-5.40) m/uL Hgb (11.4-16.0) gm/dL Hct (34.0-46.0) % MCHC (31.0-37.0) g/dL RDW (11.5-15.5) % APTT (22.0-30.0) sec ABG pH (7.35-7.45) ABG pCO2 (35-45) mmHg ABG HCO3 (21-25) mmol/L ABG Total CO2 (19-24) mmol/L Sodium (137-145) mmol/L BUN (7-17) mg/dL Creatinine (0.52-1.04) mg/dL Glucose (74-99) mg/dL POC Glucose (mg/dL) 140 H 173 H 154 H (75-99) mg/dL Calcium (8.4-10.2) mg/dL 11/15/18 Range/Units 18:02 RBC (3.80-5.40) m/uL Hgb (11.4-16.0) gm/dL Hct (34.0-46.0) % MCHC (31.0-37.0) g/dL RDW (11.5-15.5) % APTT (22.0-30.0) sec ABG pH (7.35-7.45) ABG pCO2 (35-45) mmHg ABG HCO3 (21-25) mmol/L ABG Total CO2 (19-24) mmol/L Sodium (137-145) mmol/L BUN (7-17) mg/dL Creatinine (0.52-1.04) mg/dL Glucose (74-99) mg/dL POC Glucose (mg/dL) 160 H (75-99) mg/dL Calcium (8.4-10.2) mg/dL Assessment and Plan Assessment: Acute on chronic renal failure and anuric Runs of the atrial fibrillation along with wide complex tachycardia, now patient is back in sinus rhythm, amiodarone has been switched to oral Acute respiratory failure multifactorial due to profound metabolic acidosis along with arrhythmia and congestive heart failure likely biventricular failure and pulmonary embolism Severe sepsis on broad-spectrum antibiotics, possible right lower lobe pneumonia cannot be excluded less likely aspiration related as patient has a good gag flex GI bleed of unclear source status post blood transfusion, hemoglobin has been stable now no evidence of active bleeding has been seen on IV heparin Altered mental status and metabolic encephalopathy likely multifactorial related to renal failure Deep venous thrombosis of right lower extremity and possible pulmonary embolism 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 Small bilateral pleural effusion more so on the right side compared to left side Acute blood loss anemia Plan: Taper sedation initiated weaning trial Anticoagulation currently is being continued in the form of IV heparin, tolerating it fairly well We will defer placement of IVC filter to vascular surgery Continue daily hemodialysis as tolerated Blood transfusion as needed keep hemoglobin over 7 Optimize therapy for heart failure Monitor renal functions closely Further recommendations pending plan of care as per clinical response of the patient Bicarb drip low-dose to be reinitiated due to vasa spasm and cyanotic changes into the toes Taper levo fed drip as tolerated Taper oxygen down to 35-40% next 24 We'll continue to taper down the pressors as tolerated continue bicarb drip Continue tube feed tube feed Once patient is more hemodynamically stable reinitiated weaning as tolerated Critical care time spent 35 minutes Time with Patient: Greater than 30
[2018-11-15] MEDS: HEPARIN SOD,PORK IN 0.45% NACL 25,000 UNIT in 0.45% NACL 1 250ML.BAG IV SCH (18:40)
[2018-11-15 19:17] LABS: Glucose,Whole Blood 149 mg/dL (75-99)
[2018-11-15 20:18] LABS: Glucose,Whole Blood 178 mg/dL (75-99)
[2018-11-15] MEDS: PRAVASTATIN SODIUM 20 MG TAB PO SCH (20:46)
[2018-11-15] MEDS: MONTELUKAST 10 MG TAB PO SCH (20:50)
[2018-11-15 21:09] LABS: Glucose,Whole Blood 183 mg/dL (75-99)
[2018-11-15] MEDS: NOREPINEPHRINE 16 MG in SODIUM CHLORIDE 0.9% 250 ML IV SCH (21:26)
[2018-11-15 22:21] LABS: Glucose,Whole Blood 178 mg/dL (75-99)
--- NOTE | 2018-11-15 22:57 | PN ---
PROGRESS NOTE DATE OF SERVICE: 11/15/2018. REASON FOR FOLLOWUP: Pneumonia. INTERVAL HISTORY: The patient is currently afebrile. She is hemodynamically stable. Her white count is currently stable. She has been tolerating tube feeding. No diarrhea. No . PHYSICAL EXAMINATION: VITAL SIGNS: Blood pressure 120/49, pulse of 78, temperature 97.6. She is 100% on 40% FiO2. GENERAL DESCRIPTION: A middle-aged female intubated on the vent. HEENT EXAMINATION: Slight pallor. No scleral icterus. The patient is orally intubated. LUNGS: Unlabored breathing with decreased breath sounds at the bases. HEART: S1, S2. Regular rate and rhythm. ABDOMEN: Soft, no tenderness. EXTREMITIES: No edema of the feet. LABS: White count normalized to 10.0. Blood culture negative. Sputum has been negative. DIAGNOSTIC IMPRESSION AND PLAN: Patient with acute respiratory failure which is likely multifactorial in this patient with possible component of pneumonia. The patient's white count has normalized. Culture has been negative so far. Currently on Zosyn, to continue while waiting for the condition to stabilize. Continue supportive care. MMODL / IJN: [id number] /
[2018-11-15 23:10] LABS: Glucose,Whole Blood 165 mg/dL (75-99)
[2018-11-16 00:25] LABS: Glucose,Whole Blood 156 mg/dL (75-99)
[2018-11-16 01:11] LABS: Glucose,Whole Blood 148 mg/dL (75-99)
[2018-11-16 02:22] LABS: Glucose,Whole Blood 141 mg/dL (75-99)
[2018-11-16 03:15] LABS: Glucose,Whole Blood 149 mg/dL (75-99)
[2018-11-16] MEDS: PROPOFOL 1,000 MG in EMPTY BAG 1 BAG IV SCH (04:12)
[2018-11-16 04:13] LABS: Glucose,Whole Blood 156 mg/dL (75-99)
[2018-11-16 04:41] LABS: ABG HCO3 24 mmol/L (21-25); ABG PCO2 51 mmHg (35-45); ABG PH 7.27 (7.35-7.45); ABG PO2 106 mmHg (83-108); ABG TCO2 25 mmol/L (19-24)
[2018-11-16 04:42] LABS: ABG Base Excess -3.2 mmol/L; ABG Oxygen Saturation 97.7 % (94-97)
[2018-11-16 05:12] LABS: Anisocytosis Moderate; HCT 28.5 % (34.0-46.0); HGB 8.6 gm/dL (11.4-16.0); Hypochromasia Marked; MCHC 30.4 g/dL (31.0-37.0); MCV 98.9 fL (80.0-100.0); Macrocytosis Moderate; Mean Platelet Volume 8.5; Platelet Count 192 k/uL (150-450); Poikilocytosis Slight; RBC 2.88 m/uL (3.80-5.40); RDW 20.3 % (11.5-15.5)
[2018-11-16 05:16] LABS: Glucose,Whole Blood 160 mg/dL (75-99)
[2018-11-16 05:24] LABS: Calcium 7.7 mg/dL (8.4-10.2); Magnesium 2.2 mg/dL (1.6-2.3); Potassium 4.3 mmol/L (3.5-5.1)
--- NOTE | 2018-11-16 05:39 | PN ---
PROGRESS NOTE This is a 58-year-old white female with acute renal failure, severe pulmonary hypertension, diastolic heart failure, acute renal failure, hypotension, severe sepsis, atrial fibrillation with rapid ventricular response, DVT and pulmonary embolism, biventricular failure, chronic systolic heart failure, stage IV, baseline chronic renal failure, pleural effusion related to heart failure, possible sleep apnea, nicotine addiction, and severe COPD. Patient is improving. She has been weaned down on her Levophed down to 2 to 3 mcg, stable, minimal urine output getting dialysis. She is stable on dialysis with holding her blood pressures and then tried a trial of weaning her off the vent today for a half hour. She appears resting comfortably on the vent. Temp 98.2, pulse 73, respiratory rate 20, blood pressure is 80s to 90s to low 100s over 50s to 60s, O2 saturation 98. CARDIOVASCULAR: S1, S2. HEMATOLOGY: Negative Homans. PSYCH: Fair mood and affect. OPHTHALMOLOGIC: Pupils equal, round, reactive to light and accommodation. RESPIRATORY: Diminished. BUN 37, creatinine 4.54, hemoglobin 8.2. ASSESSMENT: 1. Probable chronic renal failure with acute tubular necrosis with stage IV chronic renal disease. 2. Atrial fibrillation with wide-complex tachycardia. 3. Acute respiratory failure. 4. Biventricular failure plus severe pulmonary hypertension. 5. Metabolic acidosis. 6. Severe sepsis. 7. Right lower lobe pneumonia, probable aspiration. 8. Gastrointestinal bleed, status post transfusion. No active bleeding on heparin. 9. Altered mental status, metabolic encephalopathy. 10.Deep venous thrombosis, pulmonary embolism. 11.Bilateral pleural effusions. 12.Acute blood loss anemia. Prognosis still guarded, but patient appears to be improving. Try to wean her off the vent. Daily hemodialysis. Monitor renal function. Bicarb drip per renal disease. Wean Levophed. Continue oxygen. Wean as tolerated. Please see further orders. Prognosis guarded. ICU TIME: 30 minutes. MMODL / IJN: [id number] /
[2018-11-16 06:17] LABS: Glucose,Whole Blood 160 mg/dL (75-99)
--- NOTE | 2018-11-16 06:24 | P.PN ---
Subjective Progress Note Date: 11/16/18 Principal diagnosis: CHF/cardiomyopathy This is a pleasant 58-year-old female patient with an extensive past medical history for her age consistent of coronary artery disease, peripheral arterial disease, diabetes, hypertension, dyslipidemia, and chronic kidney disease, was admitted to the hospital with chest discomfort and was ruled in for acute non- ST patient myocardial infarction and also with congestive heart failure secondary to systolic dysfunction. The patient was treated medically for the non-STEMI The echocardiogram revealed impaired LV function with EF of 35%, mild aortic stenosis, severe pulmonary hypertension, and moderate tricuspid regurgitation. I'll follow-up with the patient today, 11/16/2018, the patient continues to be intubated and continues to be on ventilator. Hemodynamically she continues to be on norepinephrine but the dose has been coming down. She continues to be in normal sinus mechanism and currently she is on amiodarone by mouth. She is also on anticoagulation with heparin. The chest x-ray showed right pleural effusion. She continues to be on dialysis. Objective - Vital Signs Vital signs: Vital Signs Temp 97.9 F 11/16/18 00:00 Pulse 78 11/16/18 03:00 Resp 21 11/16/18 03:00 BP 108/59 11/16/18 03:00 Pulse Ox 99 11/16/18 03:00 Intake & Output 11/15/18 11/15/18 11/16/18 06:59 18:59 06:59 Intake Total 3445.407 7680.334 1053.176 Output Total 6 4 2 Balance 0412.044 3189.334 1051.176 Weight 127.6 kg Intake: IV 700 600 450 0.9 NACL 600 50 Piperacillin-Tazobactam 2 100 .25 gm In Sodium Chloride 0.9% 100 ml @ 25 mls/hr IVPB Q8H [facility] Rx#: [id number] Sodium Chloride 0.9% 1, 550 450 000 ml @ 50 mls/hr IV . Q20H [facility] Rx#:[id number] Intake, IV Titration 211.083 508.334 264.176 Amount Heparin Sod,Pork in 0.45% 250 NaCl 25,000 unit In 0.45 % NaCl 1 250ml.bag @ 8.45 UNITS/KG/HR 9.97 mls/hr IV .Q24H [facility] Rx#: [id number] Insulin Regular 100 unit 42.943 23.207 25.841 In Sodium Chloride 0.9% 100 ml @ Per Protocol IV .Q0M [facility] Rx#:[id number] Norepinephrine 16 mg In 39.585 166.080 106.460 Sodium Chloride 0.9% 250 ml @ Titrate IV .Q0M [facility] Rx#:[id number] Propofol 1,000 mg In 128.555 69.047 131.875 Empty Bag 1 bag @ Titrate IV .Q0M [facility] Rx#: [id number] Tube Feeding 465 279 279 Other 60 60 Output: Urine 6 4 2 Other: Voiding Method Indwelling Catheter Indwelling Catheter Indwelling Catheter # Bowel Movements 1 - Constitutional General appearance: Present: no acute distress - Respiratory Respiratory: bilateral: diminished - Labs CBC & Chem 7: 11/16/18 04:00 11/16/18 04:00 Labs: Abnormal Lab Results - Last 24 Hours (Table) 11/14/18 11/14/18 11/14/18 Range/Units 17:04 21:01 21:02 RBC (3.80-5.40) m/uL Hgb (11.4-16.0) gm/dL Hct (34.0-46.0) % MCHC (31.0-37.0) g/dL RDW (11.5-15.5) % APTT (22.0-30.0) sec ABG pH (7.35-7.45) ABG pCO2 (35-45) mmHg ABG Total CO2 (19-24) mmol/L ABG O2 Saturation (94-97) % Sodium (137-145) mmol/L BUN (7-17) mg/dL Creatinine (0.52-1.04) mg/dL Glucose (74-99) mg/dL POC Glucose (mg/dL) 162 H 198 H 212 H (75-99) mg/dL Calcium (8.4-10.2) mg/dL 11/15/18 11/15/18 11/15/18 Range/Units 04:14 06:16 07:00 RBC 2.87 L (3.80-5.40) m/uL Hgb 8.2 L (11.4-16.0) gm/dL Hct 28.1 L (34.0-46.0) % MCHC 29.1 L (31.0-37.0) g/dL RDW 19.9 H (11.5-15.5) % APTT (22.0-30.0) sec ABG pH (7.35-7.45) ABG pCO2 (35-45) mmHg ABG Total CO2 (19-24) mmol/L ABG O2 Saturation (94-97) % Sodium (137-145) mmol/L BUN (7-17) mg/dL Creatinine (0.52-1.04) mg/dL Glucose (74-99) mg/dL POC Glucose (mg/dL) 155 H 178 H (75-99) mg/dL Calcium (8.4-10.2) mg/dL 11/15/18 11/15/18 11/15/18 Range/Units 08:07 09:12 10:11 RBC (3.80-5.40) m/uL Hgb (11.4-16.0) gm/dL Hct (34.0-46.0) % MCHC (31.0-37.0) g/dL RDW (11.5-15.5) % APTT (22.0-30.0) sec ABG pH (7.35-7.45) ABG pCO2 (35-45) mmHg ABG Total CO2 (19-24) mmol/L ABG O2 Saturation (94-97) % Sodium (137-145) mmol/L BUN (7-17) mg/dL Creatinine (0.52-1.04) mg/dL Glucose (74-99) mg/dL POC Glucose (mg/dL) 164 H 191 H 173 H (75-99) mg/dL Calcium (8.4-10.2) mg/dL 11/15/18 11/15/18 11/15/18 Range/Units 11:03 11:53 13:08 RBC (3.80-5.40) m/uL Hgb (11.4-16.0) gm/dL Hct (34.0-46.0) % MCHC (31.0-37.0) g/dL RDW (11.5-15.5) % APTT (22.0-30.0) sec ABG pH (7.35-7.45) ABG pCO2 (35-45) mmHg ABG Total CO2 (19-24) mmol/L ABG O2 Saturation (94-97) % Sodium (137-145) mmol/L BUN (7-17) mg/dL Creatinine (0.52-1.04) mg/dL Glucose (74-99) mg/dL POC Glucose (mg/dL) 166 H 162 H 165 H (75-99) mg/dL Calcium (8.4-10.2) mg/dL 11/15/18 11/15/18 11/15/18 Range/Units 13:57 15:14 16:22 RBC (3.80-5.40) m/uL Hgb (11.4-16.0) gm/dL Hct (34.0-46.0) % MCHC (31.0-37.0) g/dL RDW (11.5-15.5) % APTT (22.0-30.0) sec ABG pH (7.35-7.45) ABG pCO2 (35-45) mmHg ABG Total CO2 (19-24) mmol/L ABG O2 Saturation (94-97) % Sodium (137-145) mmol/L BUN (7-17) mg/dL Creatinine (0.52-1.04) mg/dL Glucose (74-99) mg/dL POC Glucose (mg/dL) 167 H 140 H 173 H (75-99) mg/dL Calcium (8.4-10.2) mg/dL 11/15/18 11/15/18 11/15/18 Range/Units 16:47 18:02 19:06 RBC (3.80-5.40) m/uL Hgb (11.4-16.0) gm/dL Hct (34.0-46.0) % MCHC (31.0-37.0) g/dL RDW (11.5-15.5) % APTT (22.0-30.0) sec ABG pH (7.35-7.45) ABG pCO2 (35-45) mmHg ABG Total CO2 (19-24) mmol/L ABG O2 Saturation (94-97) % Sodium (137-145) mmol/L BUN (7-17) mg/dL Creatinine (0.52-1.04) mg/dL Glucose (74-99) mg/dL POC Glucose (mg/dL) 154 H 160 H 149 H (75-99) mg/dL Calcium (8.4-10.2) mg/dL 11/15/18 11/15/18 11/15/18 Range/Units 20:07 20:58 22:09 RBC (3.80-5.40) m/uL Hgb (11.4-16.0) gm/dL Hct (34.0-46.0) % MCHC (31.0-37.0) g/dL RDW (11.5-15.5) % APTT (22.0-30.0) sec ABG pH (7.35-7.45) ABG pCO2 (35-45) mmHg ABG Total CO2 (19-24) mmol/L ABG O2 Saturation (94-97) % Sodium (137-145) mmol/L BUN (7-17) mg/dL Creatinine (0.52-1.04) mg/dL Glucose (74-99) mg/dL POC Glucose (mg/dL) 178 H 183 H 178 H (75-99) mg/dL Calcium (8.4-10.2) mg/dL 11/15/18 11/16/18 11/16/18 Range/Units 22:58 00:13 00:59 RBC (3.80-5.40) m/uL Hgb (11.4-16.0) gm/dL Hct (34.0-46.0) % MCHC (31.0-37.0) g/dL RDW (11.5-15.5) % APTT (22.0-30.0) sec ABG pH (7.35-7.45) ABG pCO2 (35-45) mmHg ABG Total CO2 (19-24) mmol/L ABG O2 Saturation (94-97) % Sodium (137-145) mmol/L BUN (7-17) mg/dL Creatinine (0.52-1.04) mg/dL Glucose (74-99) mg/dL POC Glucose (mg/dL) 165 H 156 H 148 H (75-99) mg/dL Calcium (8.4-10.2) mg/dL 11/16/18 11/16/18 11/16/18 Range/Units 02:10 03:04 04:00 RBC (3.80-5.40) m/uL Hgb (11.4-16.0) gm/dL Hct (34.0-46.0) % MCHC (31.0-37.0) g/dL RDW (11.5-15.5) % APTT 39.7 H (22.0-30.0) sec ABG pH (7.35-7.45) ABG pCO2 (35-45) mmHg ABG Total CO2 (19-24) mmol/L ABG O2 Saturation (94-97) % Sodium (137-145) mmol/L BUN (7-17) mg/dL Creatinine (0.52-1.04) mg/dL Glucose (74-99) mg/dL POC Glucose (mg/dL) 141 H 149 H (75-99) mg/dL Calcium (8.4-10.2) mg/dL 11/16/18 11/16/18 11/16/18 Range/Units 04:00 04:00 04:02 RBC 2.88 L (3.80-5.40) m/uL Hgb 8.6 L (11.4-16.0) gm/dL Hct 28.5 L (34.0-46.0) % MCHC 30.4 L (31.0-37.0) g/dL RDW 20.3 H (11.5-15.5) % APTT (22.0-30.0) sec ABG pH (7.35-7.45) ABG pCO2 (35-45) mmHg ABG Total CO2 (19-24) mmol/L ABG O2 Saturation (94-97) % Sodium 135 L (137-145) mmol/L BUN 44 H (7-17) mg/dL Creatinine 5.16 H (0.52-1.04) mg/dL Glucose 145 H (74-99) mg/dL POC Glucose (mg/dL) 156 H (75-99) mg/dL Calcium 7.7 L (8.4-10.2) mg/dL 11/16/18 11/16/18 11/16/18 Range/Units 04:26 05:05 06:06 RBC (3.80-5.40) m/uL Hgb (11.4-16.0) gm/dL Hct (34.0-46.0) % MCHC (31.0-37.0) g/dL RDW (11.5-15.5) % APTT (22.0-30.0) sec ABG pH 7.27 L (7.35-7.45) ABG pCO2 51 H (35-45) mmHg ABG Total CO2 25 H (19-24) mmol/L ABG O2 Saturation 97.7 H (94-97) % Sodium (137-145) mmol/L BUN (7-17) mg/dL Creatinine (0.52-1.04) mg/dL Glucose (74-99) mg/dL POC Glucose (mg/dL) 160 H 160 H (75-99) mg/dL Calcium (8.4-10.2) mg/dL Assessment and Plan Assessment: Assessment #1 systolic congestive heart failure exacerbation #2 acute non-ST elevation myocardial infarction #3 acute on chronic renal failure #4 peripheral vascular disease #5 systemic hypertension #6 hyperkalemia Plan #1 continue the dialysis #2 the right wean the patient from the vasopressors. The dose has been coming down #3 continue amiodarone by mouth. #4 continue anticoagulation with heparin #6 changed to oral anticoagulation down the line
[2018-11-16] MEDS: HEPARIN SODIUM,PORCINE 5,000 UNIT/ML 1 ML VIAL IV PRN (06:25)
[2018-11-16 06:33] LABS: Band Neutrophils % 1 %; Metamyelocytes % 1 %; Neutrophils % (M) 71 %; Nucleated Red Blood Cells 4 /100 WBC (0-0); Total Cells Counted 200
[2018-11-16 06:34] LABS: Polychromasia Present; Target Cells Present
[2018-11-16] MEDS: INSULIN REGULAR 100 UNIT in SODIUM CHLORIDE 0.9% 100 ML IV SCH (06:49)
[2018-11-16 07:05] LABS: Glucose,Whole Blood 150 mg/dL (75-99)
[2018-11-16] MEDS: ALBUTEROL NEBULIZED 2.5 MG/3 ML INHALATION PRN ×5 (07:26→23:20)
--- NOTE | 2018-11-16 07:57 | XR ---
EXAMINATION TYPE: XR chest 1V portable DATE OF EXAM: 11/16/2018 Comparison: 11/15/2018 Clinical History: 58-year-old female Tube placement Findings: ET tube tip at the level of the medial clavicular heads. NG tube courses below the diaphragm. Right I J CVC tip at the mid to lower SVC level. Heart remains mildly enlarged. Diffuse interstitial prominen ce. Continued all pleural effusions with bibasilar opacities. Median sternotomy wires. Impression: 1. Overall stable mild pulmonary vascular congestion. 2. Also, continued small pleural effusions with adjacent atelectasis and/or consolidation.
[2018-11-16 08:21] LABS: Glucose,Whole Blood 147 mg/dL (75-99)
--- NOTE | 2018-11-16 08:34 | P.PN ---
Subjective Progress Note Date: 11/16/18 Principal diagnosis: Acute renal failure, altered mental status likely related to acute renal failure , hypotension, severe sepsis, hypertension, A. fib with RVR Right lower extremity venous thrombosis, chronic intermittent thromboembolism, pulmonary hypertension, biventricular failure, acute on chronic systolic heart failure, acute on chronic renal failure is stage IV, small bilateral pleural effusion likely related to heart failure, morbid obesity, suspect sleep disorder breathing and sleep apnea 11/16/2018, patient seen eval examined during the rounds she is still under affect of propofol which has been discontinued and has been resumed though, patient has some loose stool which has been sent for C. difficile, hemodynamic status slightly improved patient is now on 4 mics of levo fed drip, ventilator setting remains as stable, arterial blood gas revealed suggestive of respiratory and metabolic acidosis, care plan discussed with the staff at length , will continue current supportive care and agree with hemodialysis later on today patient is being started on IV Solu-Medrol continue breathing treatment in addition will DC the propofol "patient on morphine and Ativan and set up a protocol for weaning will do CPAP and pressure support trial with 5 and 10 twice a day for one to 2 hours as tolerated blood patient to be more awake now, critical care time spent 35 minutes 11/15/2018, patient seen eval examined during the rounds clinically has been doing well awake and alert levo fed drip is down to 11 mics, ventilator setting remains stable, patient remains on heparin drip, currently patient is assist control rate of 20 breathing 20 tidal volume of 5oo, 40% oxygen and 5 of PEEP, the acral cyanosis essentially unchanged, patient has very minimal urine output , labs reviewed medications reviewed, we'll taper down the propofol drip with that and hemodynamics will improve also can initiate the weaning trial will see if patient can tolerate a trial for half an hour with CPAP 5 and pressure support of 5 11/14/2018, patient seen eval examined during the rounds clinically has been doing essentially unchanged status post hemodialysis 1.5 L of fluid has been removed, labs reviewed medications reviewed care plan discussed, the BUN/ creatinine improved to 44 and 4.9, liver function continued to improve 11/13/2018, patient seen and evaluated examined during the rounds, patient does withdraws to pain and physical stimuli, she is sedated with propofol drip, patient is on 25 mics of propofol if lower down becomes restless less anxious and agitated, patient has been remain on heparin drip tolerating very well no evidence of bleeding has been seen, the acral cyanosis in the upper extremity appears to have improved today however in the lower extremity remains unchanged , patient is also on bicarb drip U fed drip is down to 14 mics which is gradually being titrated patient is on insulin drip 2.5 units an hour for hyperglycemia, her peak airway pressures 33 her vent settings include assist control rate of 20 breathing 20 tidal volume 505 of PEEP and 40% oxygen, her sputum culture results and reports are reviewed no growth has been noted blood cultures no growth so far, patient was able to get the hemodialysis yesterday 1.5 L of fluid has been removed, labs from today reviewed white cell count continue to go down is 10,900 hemoglobin remained stable 8.5, patient is well anticoagulated with IV heparin, platelet count remains stable but however slow decline has as been noted which is being monitored observe his 135, patient is on tube feed tolerating very well slowly been escalated, BUN/creatinine has improved to 38 and 4.1, sodium is 132, LFT continued to improve AST/ALT now in to low thousands, IV amiodarone infusion has a stab patient is now on by mouth amiodarone no new episodes of A. fib RVR or V. tach has been noted, chest x-ray remains stable, critical care time spent 45 minutes 11/12/2018, patient seen eval examined during the rounds clinically patient is slightly improved in terms of laboratory data and hemodynamic support, patient remains sedated with propofol drip currently the dose is down to 40 mics, it is down to 20 mics patient continued to manifest ischemic changes in the toes as well as in the fingertips, bicarb drip is being given to counteract severe profound metabolic peripheral acidosis, she remains on full ventilator support with assist control of 20 tidal volume of 500, PEEP of 5, FiO2 down to 65%, oxygen saturation is 100% as checked with the right ear lobe, patient is now in sinus rhythm has been in A. fib but spontaneously converted patient has been amiodarone IV which is to be switched to oral aspirin cardiovascular services, current infusions include heparin drip tolerating very well no new bleeding has been seen along with levo fed drip 20 mics, propofol drip and bicarb drip, respiratory secretions are minimal, bowel sounds are hypoactive, no evidence of bleeding has been seen patient to be started on tube feed and dialysis is being planned later on today as well as per discussion with the renal services, answers are all negative so far, chest x-ray shows right lower lobe subsegmental atelectasis small effusion which is stable, leukocytosis improved today compared to yesterday, critical care time spent 35 minutes 11/11/2018, patient seen eval examined during the rounds clinically patient remains sedated and intubated, currently patient is on now full ventilator support she is on assist control rate of 20 breathing 20 tidal volume of 505 of PEEP and 75% oxygen, patient remains on heparin drip which is has been started this morning, also on propofol drip 45 mics, levo fed drip is off 24 mics, patient does have been noted to have as a spasm in the upper extremity as well as lower extremity with bluish discoloration, patient has being restarted on heparin drip to optimize the levo fed to contract severe profound metabolic acidosis, reviewed medications reviewed care plan discussed with the staff at length, patient will need a arterial line attempted but unable to cannulate the femoral artery, however able to access the femoral vein a triple-lumen catheter most of the infusions are incompatible with each other, dialysis is not performed due to unstable situation and condition, urine output remains very minimal, Keofeed to be started heparin to be continued monitor hemoglobin closely, critical care time spent 45 minutes including procedure, Patient was intubated last night due to severe tachypnea and tachycardia and intermittent runs of the V. tach along with atrial fibrillation, patient has been initiated amiodarone drip as well, given that ABG could not be obtained venous blood gases are being used 11/10/2018, patient seen eval reexamined during the rounds clinically patient has a not much change from baseline has been transfused 1 unit of packed RBC patient to has been more lethargic but readily arousable arterial blood gas couldn't be obtained a venous blood gas has been performed continued to show respiratory acidosis combined with metabolic acidosis, patient is due for dialysis today also been planned for EGD which has been performed some gastritis has been noted with some white patches suggestive of ischemic changes cannot be excluded for details please refer to EGD note, patient remains on 7 mics of levo fed which is to be titrated down as blood pressure has improved, we will do low-dose bicarb drip as well patient did receive a dose of desmopressin earlier this morning, patient remains on BiPAP 15/10 with the FiO2 to keep saturation over 90-94%, patient remain somnolent and lethargic but readily arousable respond appropriately when awake then goes right back to sleep , patient did receive a dose of Xanax 11/08/2018, patient seen eval reexamined during the rounds clinically patient remains marginal continue require vasopressors currently patient is on 19 mics of levo fed drip, during dialysis patient had episode of the tachyarrhythmia requiring amiodarone now patient after the initial IV boluses back to sinus rhythm, hemodynamic status is overall stable but marginal, urine output remains very low, patient did tolerate the hemodialysis fairly well earlier this morning except the findings as noted to more old bleeding noted it appears to be old blood, patient is currently on desmopressin drip, also has been infused with 1 unit of packed RBC, heparin drip has been on hold since yesterday, vascular surgery has been consulted for evaluation of IVC filter as patient has deep venous thrombosis right lower extremity, sugars continue to be run on the higher side remains on insulin drip, patient is on proton pump inhibitor IV with frequent monitoring with monitoring observation her hemoglobin him to keep hemoglobin over 7 no active bleeding however has been noted by GI services has been consulted as well for GI bleed, Estrace standpoint tolerating BiPAP very well currently patient is on BiPAP with 12 of BiPAP the and 5 EPAP respiratory rate is 22 her spontaneous tidal volumes ranging in mid 400 range, she is on 40 % oxygen, arterial blood gas couldn't be drawn, labs medications and radiographic studies reviewed culture results are reviewed as well no positive cultures been seen patient remains on Zosyn, critical care time spent 35 minutes 11/07/2018, patient seen and evaluated examined during the rounds this morning critical care time spent 40 minutes, patient has removed to the ICU from medical floor as she was hypotensive with poor urine output in addition patient has been more somnolent and lethargic she did have receive a dose of Xanax on the floor, after arrival in ICU patient remains very hypotensive with tachycardia was given multiple fluid boluses to improve the hemodynamics however eventually starting the levo fed drip, patient does have 2 peripheral IVs one of them is not functioning very well, worsening of renal function has been noted the renal services planning to do hemodialysis, patient has very poor peripheral arterial disease unable to obtain ABG in addition to that very poor peripheral pulses are present, patient is arousable opens eyes follow simple commands but remains very anxious and agitated, patient eventually went up to 25 mics of levo fed drip with a systolic blood pressure ranging about 100 210, urine output has been very minimal, given that the lack of ability of IV axis will proceed with a central line however patient needed dialysis port as well will do a trilysis catheter (hemodialysis catheter with extra port), care plan discussed with the vascular surgery as well and renal services planning to do hemodialysis later on today provided hemodynamics remain stable, due to anticipated profound metabolic acidosis patient has been started on bicarb drip , patient is being kept on IV Zosyn heparin has been on hold due to procedures as well as elevated PTT labs reviewed medications reviewed radiographic studies reviewed as well 11/06/2018, patient seen evlauro examined during the rounds clinically patient has a been doing relatively better in terms of shortness of breath and swelling of the lower extremity patient is currently on room air however renal function continued to go up slightly and Lasix dose is being adjusted by renal service labs reviewed medications reviewed for now we'll continue IV heparin hopefully next 24-48 hours we'll switch it to oral anticoagulants 11/05/2018, patient seen evlauro reexamined during the rounds clinically has been doing relatively better in terms of breathing leg swelling the lower extremity is slightly better patient is on anticoagulation with IV heparin for DVT thrombosis of lower extremity on the right side also probable pulmonary embolism as well Patient presented to the hospital with worsening dyspnea and edema. Patient states she's been getting progressively short of breath over the last 1 week. She initially thought it was asthma but the symptoms did not improve with nebulized treatments. She also noticed edema in her legs. She states she does not take any diuretics at home. She admits to good urine output. No hematuria or dysuria. No vomiting or diarrhea. Oral intake has been fair. Denies use of NSAIDs. Chest CT revealed bilateral pleural effusions. Echocardiogram revealed ejection fraction of 35-40% with severe pulmonary hypertension. Currently maintained on Lasix 40 mg IV twice daily. She has been voiding. No fever or chills. Her duplex ultrasound of the lower extremity came back positive for DVT patient is now being started on IV heparin Objective - Vital Signs Vital signs: Vital Signs Temp 97.7 F 11/16/18 04:00 Pulse 74 11/16/18 07:48 Resp 21 11/16/18 07:00 BP 98/54 11/16/18 07:00 Pulse Ox 94 L 11/16/18 07:00 Intake & Output 11/15/18 11/16/18 11/16/18 18:59 06:59 18:59 Intake Total 3291.944 9810.045 81 Output Total 4 2 0 Balance 4621.666 4210.045 81 Weight 127.6 kg 127.7 kg Intake: IV 600 600 50 0.9 NACL 50 Sodium Chloride 0.9% 1, 550 600 50 000 ml @ 50 mls/hr IV . Q20H [facility] Rx#:[id number] Intake, IV Titration 508.334 387.045 Amount Heparin Sod,Pork in 0.45% 250 117.314 NaCl 25,000 unit In 0.45 % NaCl 1 250ml.bag @ 8.45 UNITS/KG/HR 9.97 mls/hr IV .Q24H [facility] Rx#: [id number] Insulin Regular 100 unit 23.207 31.396 In Sodium Chloride 0.9% 100 ml @ Per Protocol IV .Q0M [facility] Rx#:[id number] Norepinephrine 16 mg In 166.080 106.460 Sodium Chloride 0.9% 250 ml @ Titrate IV .Q0M [facility] Rx#:[id number] Propofol 1,000 mg In 69.047 131.875 Empty Bag 1 bag @ Titrate IV .Q0M [facility] Rx#: [id number] Tube Feeding 279 403 31 Other 60 90 Output: Urine 4 2 0 Other: Voiding Method Indwelling Catheter Indwelling Catheter # Bowel Movements 1 - Exam - Constitutional General appearance: disheveled, mild distress, morbidly obese, intermittently anxious and agitated now relatively more comfortable on full ventilator support - Neck Neck: normal ROM Carotids: bilateral: upstroke normal Thyroid: bilateral: normal size - Respiratory Respiratory: bilateral: CTA, few basal rales, negative: diminished, dullness - Cardiovascular Rhythm: regular Heart sounds: normal: S1, S2 - Integumentary Integumentary: normal turgor Abdomen soft - Neurologic Neurologic: CNII-XII intact - Musculoskeletal Musculoskeletal: Moving all 4 extremity good tone in all 4 extremity, peripheral acral cyanosis in the toes and the fingertips noted as dictated above , the cyanosis in the fingertips have appeared to improve - Psychiatric Psychiatric: A&O x's 2, in appropriate affect, at times become anxious and agitated and combative - Labs CBC & Chem 7: 11/16/18 04:00 11/16/18 04:00 Labs: Abnormal Lab Results - Last 24 Hours (Table) 11/15/18 11/15/18 11/15/18 Range/Units 09:12 10:11 11:03 RBC (3.80-5.40) m/uL Hgb (11.4-16.0) gm/dL Hct (34.0-46.0) % MCHC (31.0-37.0) g/dL RDW (11.5-15.5) % Metamyelocytes # (Man) (0) k/uL Nucleated RBCs (0-0) /100 WBC APTT (22.0-30.0) sec ABG pH (7.35-7.45) ABG pCO2 (35-45) mmHg ABG Total CO2 (19-24) mmol/L ABG O2 Saturation (94-97) % Sodium (137-145) mmol/L BUN (7-17) mg/dL Creatinine (0.52-1.04) mg/dL Glucose (74-99) mg/dL POC Glucose (mg/dL) 191 H 173 H 166 H (75-99) mg/dL Calcium (8.4-10.2) mg/dL 11/15/18 11/15/18 11/15/18 Range/Units 11:53 13:08 13:57 RBC (3.80-5.40) m/uL Hgb (11.4-16.0) gm/dL Hct (34.0-46.0) % MCHC (31.0-37.0) g/dL RDW (11.5-15.5) % Metamyelocytes # (Man) (0) k/uL Nucleated RBCs (0-0) /100 WBC APTT (22.0-30.0) sec ABG pH (7.35-7.45) ABG pCO2 (35-45) mmHg ABG Total CO2 (19-24) mmol/L ABG O2 Saturation (94-97) % Sodium (137-145) mmol/L BUN (7-17) mg/dL Creatinine (0.52-1.04) mg/dL Glucose (74-99) mg/dL POC Glucose (mg/dL) 162 H 165 H 167 H (75-99) mg/dL Calcium (8.4-10.2) mg/dL 11/15/18 11/15/18 11/15/18 Range/Units 15:14 16:22 16:47 RBC (3.80-5.40) m/uL Hgb (11.4-16.0) gm/dL Hct (34.0-46.0) % MCHC (31.0-37.0) g/dL RDW (11.5-15.5) % Metamyelocytes # (Man) (0) k/uL Nucleated RBCs (0-0) /100 WBC APTT (22.0-30.0) sec ABG pH (7.35-7.45) ABG pCO2 (35-45) mmHg ABG Total CO2 (19-24) mmol/L ABG O2 Saturation (94-97) % Sodium (137-145) mmol/L BUN (7-17) mg/dL Creatinine (0.52-1.04) mg/dL Glucose (74-99) mg/dL POC Glucose (mg/dL) 140 H 173 H 154 H (75-99) mg/dL Calcium (8.4-10.2) mg/dL 11/15/18 11/15/18 11/15/18 Range/Units 18:02 19:06 20:07 RBC (3.80-5.40) m/uL Hgb (11.4-16.0) gm/dL Hct (34.0-46.0) % MCHC (31.0-37.0) g/dL RDW (11.5-15.5) % Metamyelocytes # (Man) (0) k/uL Nucleated RBCs (0-0) /100 WBC APTT (22.0-30.0) sec ABG pH (7.35-7.45) ABG pCO2 (35-45) mmHg ABG Total CO2 (19-24) mmol/L ABG O2 Saturation (94-97) % Sodium (137-145) mmol/L BUN (7-17) mg/dL Creatinine (0.52-1.04) mg/dL Glucose (74-99) mg/dL POC Glucose (mg/dL) 160 H 149 H 178 H (75-99) mg/dL Calcium (8.4-10.2) mg/dL 11/15/18 11/15/18 11/15/18 Range/Units 20:58 22:09 22:58 RBC (3.80-5.40) m/uL Hgb (11.4-16.0) gm/dL Hct (34.0-46.0) % MCHC (31.0-37.0) g/dL RDW (11.5-15.5) % Metamyelocytes # (Man) (0) k/uL Nucleated RBCs (0-0) /100 WBC APTT (22.0-30.0) sec ABG pH (7.35-7.45) ABG pCO2 (35-45) mmHg ABG Total CO2 (19-24) mmol/L ABG O2 Saturation (94-97) % Sodium (137-145) mmol/L BUN (7-17) mg/dL Creatinine (0.52-1.04) mg/dL Glucose (74-99) mg/dL POC Glucose (mg/dL) 183 H 178 H 165 H (75-99) mg/dL Calcium (8.4-10.2) mg/dL 11/16/18 11/16/18 11/16/18 Range/Units 00:13 00:59 02:10 RBC (3.80-5.40) m/uL Hgb (11.4-16.0) gm/dL Hct (34.0-46.0) % MCHC (31.0-37.0) g/dL RDW (11.5-15.5) % Metamyelocytes # (Man) (0) k/uL Nucleated RBCs (0-0) /100 WBC APTT (22.0-30.0) sec ABG pH (7.35-7.45) ABG pCO2 (35-45) mmHg ABG Total CO2 (19-24) mmol/L ABG O2 Saturation (94-97) % Sodium (137-145) mmol/L BUN (7-17) mg/dL Creatinine (0.52-1.04) mg/dL Glucose (74-99) mg/dL POC Glucose (mg/dL) 156 H 148 H 141 H (75-99) mg/dL Calcium (8.4-10.2) mg/dL 11/16/18 11/16/18 11/16/18 Range/Units 03:04 04:00 04:00 RBC 2.88 L (3.80-5.40) m/uL Hgb 8.6 L (11.4-16.0) gm/dL Hct 28.5 L (34.0-46.0) % MCHC 30.4 L (31.0-37.0) g/dL RDW 20.3 H (11.5-15.5) % Metamyelocytes # (Man) 0.10 H (0) k/uL Nucleated RBCs 4 H (0-0) /100 WBC APTT 39.7 H (22.0-30.0) sec ABG pH (7.35-7.45) ABG pCO2 (35-45) mmHg ABG Total CO2 (19-24) mmol/L ABG O2 Saturation (94-97) % Sodium (137-145) mmol/L BUN (7-17) mg/dL Creatinine (0.52-1.04) mg/dL Glucose (74-99) mg/dL POC Glucose (mg/dL) 149 H (75-99) mg/dL Calcium (8.4-10.2) mg/dL 11/16/18 11/16/18 11/16/18 Range/Units 04:00 04:02 04:26 RBC (3.80-5.40) m/uL Hgb (11.4-16.0) gm/dL Hct (34.0-46.0) % MCHC (31.0-37.0) g/dL RDW (11.5-15.5) % Metamyelocytes # (Man) (0) k/uL Nucleated RBCs (0-0) /100 WBC APTT (22.0-30.0) sec ABG pH 7.27 L (7.35-7.45) ABG pCO2 51 H (35-45) mmHg ABG Total CO2 25 H (19-24) mmol/L ABG O2 Saturation 97.7 H (94-97) % Sodium 135 L (137-145) mmol/L BUN 44 H (7-17) mg/dL Creatinine 5.16 H (0.52-1.04) mg/dL Glucose 145 H (74-99) mg/dL POC Glucose (mg/dL) 156 H (75-99) mg/dL Calcium 7.7 L (8.4-10.2) mg/dL 11/16/18 11/16/18 11/16/18 Range/Units 05:05 06:06 06:53 RBC (3.80-5.40) m/uL Hgb (11.4-16.0) gm/dL Hct (34.0-46.0) % MCHC (31.0-37.0) g/dL RDW (11.5-15.5) % Metamyelocytes # (Man) (0) k/uL Nucleated RBCs (0-0) /100 WBC APTT (22.0-30.0) sec ABG pH (7.35-7.45) ABG pCO2 (35-45) mmHg ABG Total CO2 (19-24) mmol/L ABG O2 Saturation (94-97) % Sodium (137-145) mmol/L BUN (7-17) mg/dL Creatinine (0.52-1.04) mg/dL Glucose (74-99) mg/dL POC Glucose (mg/dL) 160 H 160 H 150 H (75-99) mg/dL Calcium (8.4-10.2) mg/dL 11/16/18 Range/Units 08:00 RBC (3.80-5.40) m/uL Hgb (11.4-16.0) gm/dL Hct (34.0-46.0) % MCHC (31.0-37.0) g/dL RDW (11.5-15.5) % Metamyelocytes # (Man) (0) k/uL Nucleated RBCs (0-0) /100 WBC APTT (22.0-30.0) sec ABG pH (7.35-7.45) ABG pCO2 (35-45) mmHg ABG Total CO2 (19-24) mmol/L ABG O2 Saturation (94-97) % Sodium (137-145) mmol/L BUN (7-17) mg/dL Creatinine (0.52-1.04) mg/dL Glucose (74-99) mg/dL POC Glucose (mg/dL) 147 H (75-99) mg/dL Calcium (8.4-10.2) mg/dL Assessment and Plan Assessment: Acute on chronic renal failure and anuric Loose stool diarrhea new-onset stool has been sent for C. difficile is positive we will start oral Vanco Runs of the atrial fibrillation along with wide complex tachycardia, now patient is back in sinus rhythm, amiodarone has been switched to oral Acute respiratory failure multifactorial due to profound metabolic acidosis along with arrhythmia and congestive heart failure likely biventricular failure and pulmonary embolism Severe sepsis on broad-spectrum antibiotics, possible right lower lobe pneumonia cannot be excluded less likely aspiration related as patient has a good gag flex GI bleed of unclear source status post blood transfusion, hemoglobin has been stable now no evidence of active bleeding has been seen on IV heparin Altered mental status and metabolic encephalopathy likely multifactorial related to renal failure Deep venous thrombosis of right lower extremity and possible pulmonary embolism 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 Small bilateral pleural effusion more so on the right side compared to left side Acute blood loss anemia Plan: Taper sedation initiated weaning trial, protocol has been advised Follow-up on his stool results for the C. difficile Anticoagulation currently is being continued in the form of IV heparin, tolerating it fairly well We will defer placement of IVC filter to vascular surgery Continue daily hemodialysis as tolerated Blood transfusion as needed keep hemoglobin over 7 Optimize therapy for heart failure Monitor renal functions closely Further recommendations pending plan of care as per clinical response of the patient Bicarb drip low-dose to be reinitiated due to vasa spasm and cyanotic changes into the toes Taper levo fed drip as tolerated Taper oxygen down to 35-40% next 24 We'll continue to taper down the pressors as tolerated continue bicarb drip Continue tube feed tube feed Once patient is more hemodynamically stable reinitiated weaning as tolerated Critical care time spent 35 minutes Time with Patient: Greater than 30
[2018-11-16 09:30] LABS: Glucose,Whole Blood 153 mg/dL (75-99)
--- NOTE | 2018-11-16 09:40 | XR ---
EXAMINATION TYPE: XR abdomen 1V DATE OF EXAM: 11/16/2018 Comparison: 11/18/2013 Clinical History: 58-year-old female with abdominal distention Findings: No dilated bowel. No significant stool burden. Scattered colonic air extending distally to the rectum . A left femoral CVC is present tip in the common iliac vein. Supine imaging limited for assessment o f free air. Impression: Nonspecific, overall nonobstructive bowel gas pattern. Scattered colonic air. Left femoral CVC.
--- NOTE | 2018-11-16 09:52 | P.PN ---
Subjective Patient is seen in follow-up for acute kidney injury on chronic kidney disease. Patient has chronic kidney disease stage IV with baseline creatinine near 3 secondary to diabetic kidney disease. Due to worsening renal function and oliguria, she was started on hemodialysis on November 07. She remains intubated. Currently on 4 mics of Levophed. Remains oliguric. No active bleeding. Hemoglobin stable. Afebrile. Currently on vasopressors. General: The patient appeared well nourished and normally developed. HEENT: Head exam is unremarkable. Neck is without jugular venous distension. Intubated. LUNGS: Breath sounds decreased. HEART: Rate and Rhythm are regular. First and second heart sounds normal. No murmurs, rubs or gallops. ABDOMEN: Abdominal exam reveals normal bowel sounds. Non-tender and non- distended. No evidence of peritonitis. EXTREMITITES: 1+ edema. Objective - Vital Signs Vital signs: Vital Signs Temp 97.7 F 11/16/18 04:00 Pulse 74 11/16/18 07:48 Resp 21 11/16/18 07:00 BP 98/54 11/16/18 07:00 Pulse Ox 94 L 11/16/18 07:00 Intake & Output 11/15/18 11/16/18 11/16/18 18:59 06:59 18:59 Intake Total 9506.316 8174.045 81 Output Total 4 2 0 Balance 6171.031 7874.045 81 Weight 127.6 kg 127.7 kg Intake: IV 600 600 50 0.9 NACL 50 Sodium Chloride 0.9% 1, 550 600 50 000 ml @ 50 mls/hr IV . Q20H [facility] Rx#:[id number] Intake, IV Titration 508.334 387.045 Amount Heparin Sod,Pork in 0.45% 250 117.314 NaCl 25,000 unit In 0.45 % NaCl 1 250ml.bag @ 8.45 UNITS/KG/HR 9.97 mls/hr IV .Q24H [facility] Rx#: [id number] Insulin Regular 100 unit 23.207 31.396 In Sodium Chloride 0.9% 100 ml @ Per Protocol IV .Q0M [facility] Rx#:[id number] Norepinephrine 16 mg In 166.080 106.460 Sodium Chloride 0.9% 250 ml @ Titrate IV .Q0M [facility] Rx#:[id number] Propofol 1,000 mg In 69.047 131.875 Empty Bag 1 bag @ Titrate IV .Q0M [facility] Rx#: [id number] Tube Feeding 279 403 31 Other 60 90 Output: Urine 4 2 0 Other: Voiding Method Indwelling Catheter Indwelling Catheter # Bowel Movements 1 - Labs CBC & Chem 7: 11/16/18 04:00 11/16/18 04:00 Labs: Abnormal Lab Results - Last 24 Hours (Table) 11/15/18 11/15/18 11/15/18 Range/Units 10:11 11:03 11:53 RBC (3.80-5.40) m/uL Hgb (11.4-16.0) gm/dL Hct (34.0-46.0) % MCHC (31.0-37.0) g/dL RDW (11.5-15.5) % Metamyelocytes # (Man) (0) k/uL Nucleated RBCs (0-0) /100 WBC APTT (22.0-30.0) sec ABG pH (7.35-7.45) ABG pCO2 (35-45) mmHg ABG Total CO2 (19-24) mmol/L ABG O2 Saturation (94-97) % Sodium (137-145) mmol/L BUN (7-17) mg/dL Creatinine (0.52-1.04) mg/dL Glucose (74-99) mg/dL POC Glucose (mg/dL) 173 H 166 H 162 H (75-99) mg/dL Calcium (8.4-10.2) mg/dL 11/15/18 11/15/18 11/15/18 Range/Units 13:08 13:57 15:14 RBC (3.80-5.40) m/uL Hgb (11.4-16.0) gm/dL Hct (34.0-46.0) % MCHC (31.0-37.0) g/dL RDW (11.5-15.5) % Metamyelocytes # (Man) (0) k/uL Nucleated RBCs (0-0) /100 WBC APTT (22.0-30.0) sec ABG pH (7.35-7.45) ABG pCO2 (35-45) mmHg ABG Total CO2 (19-24) mmol/L ABG O2 Saturation (94-97) % Sodium (137-145) mmol/L BUN (7-17) mg/dL Creatinine (0.52-1.04) mg/dL Glucose (74-99) mg/dL POC Glucose (mg/dL) 165 H 167 H 140 H (75-99) mg/dL Calcium (8.4-10.2) mg/dL 11/15/18 11/15/18 11/15/18 Range/Units 16:22 16:47 18:02 RBC (3.80-5.40) m/uL Hgb (11.4-16.0) gm/dL Hct (34.0-46.0) % MCHC (31.0-37.0) g/dL RDW (11.5-15.5) % Metamyelocytes # (Man) (0) k/uL Nucleated RBCs (0-0) /100 WBC APTT (22.0-30.0) sec ABG pH (7.35-7.45) ABG pCO2 (35-45) mmHg ABG Total CO2 (19-24) mmol/L ABG O2 Saturation (94-97) % Sodium (137-145) mmol/L BUN (7-17) mg/dL Creatinine (0.52-1.04) mg/dL Glucose (74-99) mg/dL POC Glucose (mg/dL) 173 H 154 H 160 H (75-99) mg/dL Calcium (8.4-10.2) mg/dL 11/15/18 11/15/18 11/15/18 Range/Units 19:06 20:07 20:58 RBC (3.80-5.40) m/uL Hgb (11.4-16.0) gm/dL Hct (34.0-46.0) % MCHC (31.0-37.0) g/dL RDW (11.5-15.5) % Metamyelocytes # (Man) (0) k/uL Nucleated RBCs (0-0) /100 WBC APTT (22.0-30.0) sec ABG pH (7.35-7.45) ABG pCO2 (35-45) mmHg ABG Total CO2 (19-24) mmol/L ABG O2 Saturation (94-97) % Sodium (137-145) mmol/L BUN (7-17) mg/dL Creatinine (0.52-1.04) mg/dL Glucose (74-99) mg/dL POC Glucose (mg/dL) 149 H 178 H 183 H (75-99) mg/dL Calcium (8.4-10.2) mg/dL 11/15/18 11/15/18 11/16/18 Range/Units 22:09 22:58 00:13 RBC (3.80-5.40) m/uL Hgb (11.4-16.0) gm/dL Hct (34.0-46.0) % MCHC (31.0-37.0) g/dL RDW (11.5-15.5) % Metamyelocytes # (Man) (0) k/uL Nucleated RBCs (0-0) /100 WBC APTT (22.0-30.0) sec ABG pH (7.35-7.45) ABG pCO2 (35-45) mmHg ABG Total CO2 (19-24) mmol/L ABG O2 Saturation (94-97) % Sodium (137-145) mmol/L BUN (7-17) mg/dL Creatinine (0.52-1.04) mg/dL Glucose (74-99) mg/dL POC Glucose (mg/dL) 178 H 165 H 156 H (75-99) mg/dL Calcium (8.4-10.2) mg/dL 11/16/18 11/16/18 11/16/18 Range/Units 00:59 02:10 03:04 RBC (3.80-5.40) m/uL Hgb (11.4-16.0) gm/dL Hct (34.0-46.0) % MCHC (31.0-37.0) g/dL RDW (11.5-15.5) % Metamyelocytes # (Man) (0) k/uL Nucleated RBCs (0-0) /100 WBC APTT (22.0-30.0) sec ABG pH (7.35-7.45) ABG pCO2 (35-45) mmHg ABG Total CO2 (19-24) mmol/L ABG O2 Saturation (94-97) % Sodium (137-145) mmol/L BUN (7-17) mg/dL Creatinine (0.52-1.04) mg/dL Glucose (74-99) mg/dL POC Glucose (mg/dL) 148 H 141 H 149 H (75-99) mg/dL Calcium (8.4-10.2) mg/dL 11/16/18 11/16/18 11/16/18 Range/Units 04:00 04:00 04:00 RBC 2.88 L (3.80-5.40) m/uL Hgb 8.6 L (11.4-16.0) gm/dL Hct 28.5 L (34.0-46.0) % MCHC 30.4 L (31.0-37.0) g/dL RDW 20.3 H (11.5-15.5) % Metamyelocytes # (Man) 0.10 H (0) k/uL Nucleated RBCs 4 H (0-0) /100 WBC APTT 39.7 H (22.0-30.0) sec ABG pH (7.35-7.45) ABG pCO2 (35-45) mmHg ABG Total CO2 (19-24) mmol/L ABG O2 Saturation (94-97) % Sodium 135 L (137-145) mmol/L BUN 44 H (7-17) mg/dL Creatinine 5.16 H (0.52-1.04) mg/dL Glucose 145 H (74-99) mg/dL POC Glucose (mg/dL) (75-99) mg/dL Calcium 7.7 L (8.4-10.2) mg/dL 11/16/18 11/16/18 11/16/18 Range/Units 04:02 04:26 05:05 RBC (3.80-5.40) m/uL Hgb (11.4-16.0) gm/dL Hct (34.0-46.0) % MCHC (31.0-37.0) g/dL RDW (11.5-15.5) % Metamyelocytes # (Man) (0) k/uL Nucleated RBCs (0-0) /100 WBC APTT (22.0-30.0) sec ABG pH 7.27 L (7.35-7.45) ABG pCO2 51 H (35-45) mmHg ABG Total CO2 25 H (19-24) mmol/L ABG O2 Saturation 97.7 H (94-97) % Sodium (137-145) mmol/L BUN (7-17) mg/dL Creatinine (0.52-1.04) mg/dL Glucose (74-99) mg/dL POC Glucose (mg/dL) 156 H 160 H (75-99) mg/dL Calcium (8.4-10.2) mg/dL 11/16/18 11/16/18 11/16/18 Range/Units 06:06 06:53 08:00 RBC (3.80-5.40) m/uL Hgb (11.4-16.0) gm/dL Hct (34.0-46.0) % MCHC (31.0-37.0) g/dL RDW (11.5-15.5) % Metamyelocytes # (Man) (0) k/uL Nucleated RBCs (0-0) /100 WBC APTT (22.0-30.0) sec ABG pH (7.35-7.45) ABG pCO2 (35-45) mmHg ABG Total CO2 (19-24) mmol/L ABG O2 Saturation (94-97) % Sodium (137-145) mmol/L BUN (7-17) mg/dL Creatinine (0.52-1.04) mg/dL Glucose (74-99) mg/dL POC Glucose (mg/dL) 160 H 150 H 147 H (75-99) mg/dL Calcium (8.4-10.2) mg/dL 11/16/18 Range/Units 09:18 RBC (3.80-5.40) m/uL Hgb (11.4-16.0) gm/dL Hct (34.0-46.0) % MCHC (31.0-37.0) g/dL RDW (11.5-15.5) % Metamyelocytes # (Man) (0) k/uL Nucleated RBCs (0-0) /100 WBC APTT (22.0-30.0) sec ABG pH (7.35-7.45) ABG pCO2 (35-45) mmHg ABG Total CO2 (19-24) mmol/L ABG O2 Saturation (94-97) % Sodium (137-145) mmol/L BUN (7-17) mg/dL Creatinine (0.52-1.04) mg/dL Glucose (74-99) mg/dL POC Glucose (mg/dL) 153 H (75-99) mg/dL Calcium (8.4-10.2) mg/dL Assessment and Plan Plan: Assessment: 1. Acute kidney injury secondary to ATN secondary to hypotension. Creatinine peaked at 5.85 and November 07 and was also oliguric. Currently hemodialysis dependent. No hydronephrosis noted on renal ultrasound. 2. Chronic kidney disease stage IV secondary to diabetic kidney disease and nephrosclerosis with baseline creatinine near 3 according to the patient. 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 3. Systolic CHF with ejection fraction of 30-35% with severe pulmonary hypertension and moderate tricuspid regurgitation. 4. Volume overload. Better. 5. Hyponatremia secondary to acute kidney injury. Better. 6. Hyperkalemia secondary to acute kidney injury. Improved with dialysis. 7. Diabetes mellitus. 8. Hypotension maintained on 4 mics of Levophed. 9. Hyperphosphatemia secondary to acute kidney injury. Maintained on PhosLo. 10. Acute blood loss anemia secondary to GI bleed. Status post blood transfusion and IV DDAVP on November 10. Status post EGD on November 10 which revealed ischemic areas in the antrum. 11. NSTEMI. Cardiology following. 12. A. fib with RVR status post amiodarone drip. Now rate controlled. Plan: Hemodialysis today with goal 2-3 L ultrafiltration. Wean Levophed. Continue to monitor renal function and urine output.
[2018-11-16] MEDS: CALCIUM ACETATE 667 MG CAP PO SCH ×3 (09:56→16:58)
[2018-11-16] MEDS: PANTOPRAZOLE 40 MG/10 ML VIAL IV SCH ×2 (09:56→20:27)
[2018-11-16] MEDS: PIPERACILLIN-TAZOBACTAM 3.375 GM in SODIUM CHLORIDE 0.9% 100 ML IVPB SCH ×2 (09:57→20:29)
[2018-11-16] MEDS: AMIODARONE 200 MG TAB PO SCH ×2 (09:57→20:27)
[2018-11-16] MEDS: FERROUS SULFATE 325 MG TAB PO SCH ×2 (09:57→10:08)
[2018-11-16] MEDS: ASPIRIN 81 MG PO SCH (09:57)
[2018-11-16] MEDS: NICOTINE 21MG/24HR PATCH TRANSDERM SCH (09:58)
[2018-11-16] MEDS: CHLORHEXIDINE GLUCONATE 15 ML CUP MUCOUS MEM SCH ×2 (09:58→20:28)
[2018-11-16] MEDS: methylPREDNISolone SOD SUCCI 40 MG/ML 1 ML VIAL IV SCH ×2 (10:18→16:58)
[2018-11-16] MEDS: LORazepam 2 MG/ML INJ IV PRN ×4 (10:20→22:37)
[2018-11-16] MEDS: FERROUS SULFATE ORAL ELIXIR 300 MG/5 ML CUP NG-TUBE SCH (11:18)
[2018-11-16] MEDS: HEPARIN SOD,PORK IN 0.45% NACL 25,000 UNIT in 0.45% NACL 1 250ML.BAG IV SCH (13:03)
[2018-11-16 14:18] LABS: Glucose,Whole Blood 142 mg/dL (75-99)
[2018-11-16 14:18] LABS: Glucose,Whole Blood 67 mg/dL (75-99)
[2018-11-16 17:41] LABS: Glucose,Whole Blood 204 mg/dL (75-99)
[2018-11-16 18:56] LABS: Glucose,Whole Blood 192 mg/dL (75-99)
[2018-11-16] MEDS: PRAVASTATIN SODIUM 20 MG TAB PO SCH (20:27)
[2018-11-16] MEDS: MONTELUKAST 10 MG TAB PO SCH (20:28)
[2018-11-16 21:10] LABS: Glucose,Whole Blood 176 mg/dL (75-99)
--- NOTE | 2018-11-16 22:52 | PN ---
PROGRESS NOTE DATE OF SERVICE: 11/16/2018 REASON FOR FOLLOWUP: Pneumonia. INTERVAL HISTORY: The patient is currently afebrile. The patient remains intubated. Hemodynamically stable, though. No pressor support. No significant has been tolerating her tube feeds. No diarrhea. PHYSICAL EXAMINATION: Blood pressure 114/63, pulse of 89, temperature of 98. She is 97% on 40% FiO2. General description is a middle-aged female intubated on the vent. HEENT EXAMINATION: Pallor. The patient is orally intubated. LUNGS: Unlabored breathing. Decreased breath sounds with no wheeze. HEART: S1, S2. Regular rate and rhythm. ABDOMEN: Soft. No tenderness. LABS: Hemoglobin 8.6, white count 8.0 with a BUN of 44, creatinine 5.16. Blood and sputum cultures have been negative. DIAGNOSTIC IMPRESSION AND PLAN: Patient with acute respiratory failure which is likely multifactorial with a possible component of pneumonia. The patient is currently covered with Zosyn. Cultures have been negative so far. Family was present at the bedside. Their questions have been answered. Now is extubated and tolerating can transition to oral antibiotics. Continue with supportive care. MMODL / IJN: [id number] /
[2018-11-16 23:13] LABS: Glucose,Whole Blood 189 mg/dL (75-99)
[2018-11-17] MEDS: methylPREDNISolone SOD SUCCI 40 MG/ML 1 ML VIAL IV SCH ×3 (00:29→20:26)
[2018-11-17 01:11] LABS: Glucose,Whole Blood 177 mg/dL (75-99)
[2018-11-17] MEDS: LORazepam 2 MG/ML INJ IV PRN ×3 (02:12→17:29)
[2018-11-17 02:21] LABS: Glucose,Whole Blood 176 mg/dL (75-99)
[2018-11-17 03:09] LABS: Glucose,Whole Blood 172 mg/dL (75-99)
[2018-11-17 05:21] LABS: Glucose,Whole Blood 176 mg/dL (75-99)
[2018-11-17 05:57] LABS: Anisocytosis Moderate; HGB 8.3 gm/dL (11.4-16.0); Hypochromasia Marked; MCH 30.5 pg (25.0-35.0); MCHC 30.7 g/dL (31.0-37.0); MCV 99.5 fL (80.0-100.0); Macrocytosis Moderate; Mean Platelet Volume 8.1; Platelet Count 195 k/uL (150-450); Poikilocytosis Slight; RBC 2.72 m/uL (3.80-5.40); RDW 20.7 % (11.5-15.5)
[2018-11-17] MEDS: INSULIN REGULAR 100 UNIT in SODIUM CHLORIDE 0.9% 100 ML IV SCH (05:57)
[2018-11-17 06:08] LABS: Calcium 7.9 mg/dL (8.4-10.2); Magnesium 2.5 mg/dL (1.6-2.3); Potassium 4.8 mmol/L (3.5-5.1)
[2018-11-17 06:13] LABS: Band Neutrophils % 4 %; Lymphocytes # (M) 0.96 k/uL (1.0-4.8); Monocytes # (M) 0.15 k/uL (0-1.0); Neutrophils % (M) 81 %; Nucleated Red Blood Cells 5 /100 WBC (0-0); Polychromasia Present; Total Cells Counted 200; WBC 7.4 k/uL (3.8-10.6)
[2018-11-17] MEDS: SODIUM CHLORIDE 0.9% 1,000 ML IV SCH ×2 (06:56→06:57)
[2018-11-17 07:03] LABS: Glucose,Whole Blood 178 mg/dL (75-99)
--- NOTE | 2018-11-17 07:23 | P.PN ---
Subjective Progress Note Date: 11/17/18 Principal diagnosis: CHF/cardiomyopathy This is a pleasant 58-year-old female patient with an extensive past medical history for her age consistent of coronary artery disease, peripheral arterial disease, diabetes, hypertension, dyslipidemia, and chronic kidney disease, was admitted to the hospital with chest discomfort and was ruled in for acute non- ST patient myocardial infarction and also with congestive heart failure secondary to systolic dysfunction. The patient was treated medically for the non-STEMI The echocardiogram revealed impaired LV function with EF of 35%, mild aortic stenosis, severe pulmonary hypertension, and moderate tricuspid regurgitation. On follow-up with the patient today, November 172018, the patient continues to be intubated. She failed CPAP yesterday. Hemodynamically she is on very small dose of norepinephrine. Also she did not have dialysis yesterday because she did have significant arrhythmia. She continues to be in normal sinus mechanism and continues to be on amiodarone by mouth. She is also on anticoagulation with heparin. The hemoglobin continues to be stable and above 7. Objective - Vital Signs Vital signs: Vital Signs Temp 98.1 F 11/17/18 04:00 Pulse 89 11/17/18 07:00 Resp 26 H 11/17/18 07:00 BP 97/51 11/17/18 07:00 Pulse Ox 97 11/17/18 07:00 Intake & Output 11/16/18 11/17/18 11/17/18 18:59 06:59 18:59 Intake Total 192.973 3073.227 41 Output Total 69 0 0 Balance 589.091 0904.227 41 Weight 131.6 kg Intake: IV 260 260 10 Piperacillin-Tazobactam 3 100 100 .375 gm In Sodium Chloride 0.9% 100 ml @ 25 mls/hr IVPB Q12HR [facility] Rx #:[id number] Sodium Chloride 0.9% 1, 160 160 10 000 ml @ 10 mls/hr IV . Q24H [facility] Rx#:[id number] Intake, IV Titration 138.849 315.227 Amount Heparin Sod,Pork in 0.45% 111.007 179.515 NaCl 25,000 unit In 0.45 % NaCl 1 250ml.bag @ 8.45 UNITS/KG/HR 9.97 mls/hr IV .Q24H [facility] Rx#: [id number] Insulin Regular 100 unit 27.842 45.248 In Sodium Chloride 0.9% 100 ml @ Per Protocol IV .Q0M [facility] Rx#:[id number] Norepinephrine 16 mg In 90.464 Sodium Chloride 0.9% 250 ml @ Titrate IV .Q0M [facility] Rx#:[id number] Oral 0 Tube Feeding 279 496 31 Other 90 90 Output: Urine 67 0 0 Stool 2 Other: Voiding Method Indwelling Catheter Indwelling Catheter # Voids 0 0 - Constitutional General appearance: Present: no acute distress - Respiratory Respiratory: bilateral: diminished - Cardiovascular Rhythm: regular Heart sounds: normal: S1, S2 - Labs CBC & Chem 7: 11/17/18 05:20 11/17/18 05:20 Labs: Abnormal Lab Results - Last 24 Hours (Table) 11/16/18 11/16/18 11/16/18 Range/Units 08:00 09:18 11:59 RBC (3.80-5.40) m/uL Hgb (11.4-16.0) gm/dL Hct (34.0-46.0) % MCHC (31.0-37.0) g/dL RDW (11.5-15.5) % Lymphocytes # (Manual) (1.0-4.8) k/uL Nucleated RBCs (0-0) /100 WBC APTT (22.0-30.0) sec Sodium (137-145) mmol/L BUN (7-17) mg/dL Creatinine (0.52-1.04) mg/dL Glucose (74-99) mg/dL POC Glucose (mg/dL) 147 H 153 H 67 L (75-99) mg/dL Calcium (8.4-10.2) mg/dL Magnesium (1.6-2.3) mg/dL 11/16/18 11/16/18 11/16/18 Range/Units 12:01 13:10 17:30 RBC (3.80-5.40) m/uL Hgb (11.4-16.0) gm/dL Hct (34.0-46.0) % MCHC (31.0-37.0) g/dL RDW (11.5-15.5) % Lymphocytes # (Manual) (1.0-4.8) k/uL Nucleated RBCs (0-0) /100 WBC APTT 77.3 H (22.0-30.0) sec Sodium (137-145) mmol/L BUN (7-17) mg/dL Creatinine (0.52-1.04) mg/dL Glucose (74-99) mg/dL POC Glucose (mg/dL) 142 H 204 H (75-99) mg/dL Calcium (8.4-10.2) mg/dL Magnesium (1.6-2.3) mg/dL 11/16/18 11/16/18 11/16/18 Range/Units 18:44 20:59 21:11 RBC (3.80-5.40) m/uL Hgb (11.4-16.0) gm/dL Hct (34.0-46.0) % MCHC (31.0-37.0) g/dL RDW (11.5-15.5) % Lymphocytes # (Manual) (1.0-4.8) k/uL Nucleated RBCs (0-0) /100 WBC APTT 53.0 H (22.0-30.0) sec Sodium (137-145) mmol/L BUN (7-17) mg/dL Creatinine (0.52-1.04) mg/dL Glucose (74-99) mg/dL POC Glucose (mg/dL) 192 H 176 H (75-99) mg/dL Calcium (8.4-10.2) mg/dL Magnesium (1.6-2.3) mg/dL 11/16/18 11/17/18 11/17/18 Range/Units 23:02 01:00 02:08 RBC (3.80-5.40) m/uL Hgb (11.4-16.0) gm/dL Hct (34.0-46.0) % MCHC (31.0-37.0) g/dL RDW (11.5-15.5) % Lymphocytes # (Manual) (1.0-4.8) k/uL Nucleated RBCs (0-0) /100 WBC APTT (22.0-30.0) sec Sodium (137-145) mmol/L BUN (7-17) mg/dL Creatinine (0.52-1.04) mg/dL Glucose (74-99) mg/dL POC Glucose (mg/dL) 189 H 177 H 176 H (75-99) mg/dL Calcium (8.4-10.2) mg/dL Magnesium (1.6-2.3) mg/dL 11/17/18 11/17/18 11/17/18 Range/Units 03:06 05:16 05:20 RBC (3.80-5.40) m/uL Hgb (11.4-16.0) gm/dL Hct (34.0-46.0) % MCHC (31.0-37.0) g/dL RDW (11.5-15.5) % Lymphocytes # (Manual) (1.0-4.8) k/uL Nucleated RBCs (0-0) /100 WBC APTT (22.0-30.0) sec Sodium 132 L (137-145) mmol/L BUN 55 H (7-17) mg/dL Creatinine 6.18 H (0.52-1.04) mg/dL Glucose 169 H (74-99) mg/dL POC Glucose (mg/dL) 172 H 176 H (75-99) mg/dL Calcium 7.9 L (8.4-10.2) mg/dL Magnesium 2.5 H (1.6-2.3) mg/dL 11/17/18 11/17/18 11/17/18 Range/Units 05:20 05:20 07:00 RBC 2.72 L (3.80-5.40) m/uL Hgb 8.3 L (11.4-16.0) gm/dL Hct 27.0 L (34.0-46.0) % MCHC 30.7 L (31.0-37.0) g/dL RDW 20.7 H (11.5-15.5) % Lymphocytes # (Manual) 0.96 L (1.0-4.8) k/uL Nucleated RBCs 5 H (0-0) /100 WBC APTT 46.3 H (22.0-30.0) sec Sodium (137-145) mmol/L BUN (7-17) mg/dL Creatinine (0.52-1.04) mg/dL Glucose (74-99) mg/dL POC Glucose (mg/dL) 178 H (75-99) mg/dL Calcium (8.4-10.2) mg/dL Magnesium (1.6-2.3) mg/dL Microbiology - Last 24 Hours (Table) 11/16/18 08:00 Stool Culture - Preliminary Stool Assessment and Plan Assessment: Assessment #1 systolic congestive heart failure exacerbation #2 acute non-ST elevation myocardial infarction #3 acute on chronic renal failure #4 peripheral vascular disease #5 systemic hypertension #6 hyperkalemia Plan #1 continue heparin IV now. Switch to oral anticoagulation down the line #2 continue amiodarone by mouth #3 follow-up with the patient
[2018-11-17] MEDS: PANTOPRAZOLE 40 MG/10 ML VIAL IV SCH (07:56)
--- NOTE | 2018-11-17 08:03 | XR ---
EXAMINATION TYPE: XR chest 1V portable DATE OF EXAM: 11/17/2018 COMPARISON: 11/16/2018 INDICATION: Intubation mechanical ventilation difficulty breathing TECHNIQUE: Single frontal view of the chest is obtained. FINDINGS: The heart size is normal. The pulmonary vasculature is normal. The lungs are clear. Previous right lower lobe infiltrate is resolved The endotracheal tube tip remains above the nieves. Nasogastric tube transverses the thorax. Right ce ntral venous catheter has its tip in the superior vena cava region. IMPRESSION: 1. Near complete resolution previous right lower lobe infiltrate. 2. Lines and catheters discussed above.
[2018-11-17] MEDS: FERROUS SULFATE ORAL ELIXIR 300 MG/5 ML CUP NG-TUBE SCH (08:14)
[2018-11-17] MEDS: CALCIUM ACETATE 667 MG CAP PO SCH ×3 (08:15→17:08)
[2018-11-17] MEDS: NICOTINE 21MG/24HR PATCH TRANSDERM SCH (08:15)
[2018-11-17] MEDS: CHLORHEXIDINE GLUCONATE 15 ML CUP MUCOUS MEM SCH ×2 (08:15→20:27)
[2018-11-17] MEDS: AMIODARONE 200 MG TAB PO SCH ×2 (08:15→20:24)
[2018-11-17] MEDS: ASPIRIN 81 MG PO SCH (08:16)
[2018-11-17 08:21] LABS: Glucose,Whole Blood 181 mg/dL (75-99)
[2018-11-17] MEDS: PIPERACILLIN-TAZOBACTAM 3.375 GM in SODIUM CHLORIDE 0.9% 100 ML IVPB SCH ×2 (08:31→20:27)
--- NOTE | 2018-11-17 09:00 | P.PN ---
Subjective Patient is seen in follow-up for acute kidney injury on chronic kidney disease. Patient has chronic kidney disease stage IV with baseline creatinine near 3 secondary to diabetic kidney disease. Due to worsening renal function and oliguria, she was started on hemodialysis on November 07. She has a right IJ catheter. She remains intubated. Currently on 5 mics of Levophed. Remains oliguric. No active bleeding. Hemoglobin stable. Yesterday she went into SVT during hemodialysis so the treatment was discontinued. Afebrile. Currently on vasopressors. General: The patient appeared well nourished and normally developed. HEENT: Head exam is unremarkable. Neck is without jugular venous distension. Intubated. LUNGS: Breath sounds decreased. HEART: Rate and Rhythm are regular. First and second heart sounds normal. No murmurs, rubs or gallops. ABDOMEN: Abdominal exam reveals normal bowel sounds. Non-tender and non- distended. No evidence of peritonitis. EXTREMITITES: 1+ edema. Objective - Vital Signs Vital signs: Vital Signs Temp 97.8 F 11/17/18 08:00 Pulse 89 11/17/18 08:00 Resp 20 11/17/18 08:00 BP 91/33 11/17/18 08:00 Pulse Ox 97 11/17/18 08:00 Intake & Output 11/16/18 11/17/18 11/17/18 18:59 06:59 18:59 Intake Total 929.941 3052.227 48.542 Output Total 69 0 0 Balance 282.032 6369.227 48.542 Weight 131.6 kg Intake: IV 260 260 10 Piperacillin-Tazobactam 3 100 100 .375 gm In Sodium Chloride 0.9% 100 ml @ 25 mls/hr IVPB Q12HR [facility] Rx #:[id number] Sodium Chloride 0.9% 1, 160 160 10 000 ml @ 10 mls/hr IV . Q24H [facility] Rx#:[id number] Intake, IV Titration 138.849 315.227 7.542 Amount Heparin Sod,Pork in 0.45% 111.007 179.515 NaCl 25,000 unit In 0.45 % NaCl 1 250ml.bag @ 8.45 UNITS/KG/HR 9.97 mls/hr IV .Q24H [facility] Rx#: [id number] Insulin Regular 100 unit 27.842 45.248 6.565 In Sodium Chloride 0.9% 100 ml @ Per Protocol IV .Q0M [facility] Rx#:[id number] Norepinephrine 16 mg In 90.464 0.977 Sodium Chloride 0.9% 250 ml @ Titrate IV .Q0M [facility] Rx#:[id number] Oral 0 Tube Feeding 279 496 31 Other 90 90 Output: Urine 67 0 0 Stool 2 Other: Voiding Method Indwelling Catheter Indwelling Catheter # Voids 0 0 - Labs CBC & Chem 7: 11/17/18 05:20 11/17/18 05:20 Labs: Abnormal Lab Results - Last 24 Hours (Table) 11/16/18 11/16/18 11/16/18 Range/Units 09:18 11:59 12:01 RBC (3.80-5.40) m/uL Hgb (11.4-16.0) gm/dL Hct (34.0-46.0) % MCHC (31.0-37.0) g/dL RDW (11.5-15.5) % Lymphocytes # (Manual) (1.0-4.8) k/uL Nucleated RBCs (0-0) /100 WBC APTT (22.0-30.0) sec Sodium (137-145) mmol/L BUN (7-17) mg/dL Creatinine (0.52-1.04) mg/dL Glucose (74-99) mg/dL POC Glucose (mg/dL) 153 H 67 L 142 H (75-99) mg/dL Calcium (8.4-10.2) mg/dL Magnesium (1.6-2.3) mg/dL 11/16/18 11/16/18 11/16/18 Range/Units 13:10 17:30 18:44 RBC (3.80-5.40) m/uL Hgb (11.4-16.0) gm/dL Hct (34.0-46.0) % MCHC (31.0-37.0) g/dL RDW (11.5-15.5) % Lymphocytes # (Manual) (1.0-4.8) k/uL Nucleated RBCs (0-0) /100 WBC APTT 77.3 H (22.0-30.0) sec Sodium (137-145) mmol/L BUN (7-17) mg/dL Creatinine (0.52-1.04) mg/dL Glucose (74-99) mg/dL POC Glucose (mg/dL) 204 H 192 H (75-99) mg/dL Calcium (8.4-10.2) mg/dL Magnesium (1.6-2.3) mg/dL 11/16/18 11/16/18 11/16/18 Range/Units 20:59 21:11 23:02 RBC (3.80-5.40) m/uL Hgb (11.4-16.0) gm/dL Hct (34.0-46.0) % MCHC (31.0-37.0) g/dL RDW (11.5-15.5) % Lymphocytes # (Manual) (1.0-4.8) k/uL Nucleated RBCs (0-0) /100 WBC APTT 53.0 H (22.0-30.0) sec Sodium (137-145) mmol/L BUN (7-17) mg/dL Creatinine (0.52-1.04) mg/dL Glucose (74-99) mg/dL POC Glucose (mg/dL) 176 H 189 H (75-99) mg/dL Calcium (8.4-10.2) mg/dL Magnesium (1.6-2.3) mg/dL 11/17/18 11/17/18 11/17/18 Range/Units 01:00 02:08 03:06 RBC (3.80-5.40) m/uL Hgb (11.4-16.0) gm/dL Hct (34.0-46.0) % MCHC (31.0-37.0) g/dL RDW (11.5-15.5) % Lymphocytes # (Manual) (1.0-4.8) k/uL Nucleated RBCs (0-0) /100 WBC APTT (22.0-30.0) sec Sodium (137-145) mmol/L BUN (7-17) mg/dL Creatinine (0.52-1.04) mg/dL Glucose (74-99) mg/dL POC Glucose (mg/dL) 177 H 176 H 172 H (75-99) mg/dL Calcium (8.4-10.2) mg/dL Magnesium (1.6-2.3) mg/dL 11/17/18 11/17/18 11/17/18 Range/Units 05:16 05:20 05:20 RBC 2.72 L (3.80-5.40) m/uL Hgb 8.3 L (11.4-16.0) gm/dL Hct 27.0 L (34.0-46.0) % MCHC 30.7 L (31.0-37.0) g/dL RDW 20.7 H (11.5-15.5) % Lymphocytes # (Manual) 0.96 L (1.0-4.8) k/uL Nucleated RBCs 5 H (0-0) /100 WBC APTT (22.0-30.0) sec Sodium 132 L (137-145) mmol/L BUN 55 H (7-17) mg/dL Creatinine 6.18 H (0.52-1.04) mg/dL Glucose 169 H (74-99) mg/dL POC Glucose (mg/dL) 176 H (75-99) mg/dL Calcium 7.9 L (8.4-10.2) mg/dL Magnesium 2.5 H (1.6-2.3) mg/dL 11/17/18 11/17/18 11/17/18 Range/Units 05:20 07:00 08:06 RBC (3.80-5.40) m/uL Hgb (11.4-16.0) gm/dL Hct (34.0-46.0) % MCHC (31.0-37.0) g/dL RDW (11.5-15.5) % Lymphocytes # (Manual) (1.0-4.8) k/uL Nucleated RBCs (0-0) /100 WBC APTT 46.3 H (22.0-30.0) sec Sodium (137-145) mmol/L BUN (7-17) mg/dL Creatinine (0.52-1.04) mg/dL Glucose (74-99) mg/dL POC Glucose (mg/dL) 178 H 181 H (75-99) mg/dL Calcium (8.4-10.2) mg/dL Magnesium (1.6-2.3) mg/dL Microbiology - Last 24 Hours (Table) 11/16/18 08:00 Stool Culture - Preliminary Stool Assessment and Plan Plan: Assessment: 1. Acute kidney injury secondary to ATN secondary to hypotension. Creatinine peaked at 5.85 and November 07 and was also oliguric. Currently hemodialysis dependent. No hydronephrosis noted on renal ultrasound. 2. Chronic kidney disease stage IV secondary to diabetic kidney disease and nephrosclerosis with baseline creatinine near 3 according to the patient. Patient follows with a senior scrum master out of [place]. 3. Systolic CHF with ejection fraction of 30-35% with severe pulmonary hypertension and moderate tricuspid regurgitation. 4. Volume overload. 5. Hyponatremia secondary to acute kidney injury. 6. Hyperkalemia secondary to acute kidney injury. Improved with dialysis. 7. Diabetes mellitus. 8. Hypotension maintained on 4 mics of Levophed. 9. Hyperphosphatemia secondary to acute kidney injury. Maintained on PhosLo. 10. Acute blood loss anemia secondary to GI bleed. Status post blood transfusion and IV DDAVP on November 10. Status post EGD on November 10 which revealed ischemic areas in the antrum. 11. NSTEMI. Cardiology following. 12. A. fib with RVR status post amiodarone drip. Now rate controlled. Plan: Will attempt hemodialysis again today with goal 2 liters ultrafiltration. Wean Levophed. Continue to monitor renal function and urine output.
[2018-11-17 09:25] LABS: Glucose,Whole Blood 189 mg/dL (75-99)
--- NOTE | 2018-11-17 09:59 | PN ---
PROGRESS NOTE DATE OF SERVICE: 11/16/2018 Discussed the case with Dr. Monique who says the patient appears to be improved. She is remaining on dialysis. [facility] is seeing her also for severe sepsis, atrial fibrillation with rapid ventricular response, acute renal failure, right lower extremity DVT, pulmonary hypertension, biventricular failure, possible sleep apnea, and systolic heart failure as well as pulmonary embolism. She appears to be slowly improving from medical standpoint. She appears comfortable on the vent. CARDIOVASCULAR: S1, S2. LUNGS: Transmitted upper airway sounds. GI: Is distended, obesity. NEUROLOGIC: Cranial nerves are intact. PSYCH: Fair mood and affect. Labs are reviewed. Hemoglobin is 8.6. ASSESSMENT: 1. Acute on chronic renal failure possible long-term dialysis will be needed. 2. Loose stool diarrhea, sent her for Clostridium difficile. If it is positive, she is going to be started on oral vancomycin. 3. She has atrial fibrillation wide complex tachycardia. Amiodarone is now oral. 4. Acute metabolic acidosis, respiratory failure due to congestive heart failure. 5. Biventricular failure. 6. Pulmonary embolism. 7. Severe sepsis with right lower lobe pneumonia, Clostridium difficile colitis. 8. She has good gag reflex. 9. Gastrointestinal bleed is stable. Hemoglobin is 8.6. 10.Deep venous thrombosis, pulmonary embolism. 11.Bilateral pleural effusions. 12.Acute blood loss anemia. PLAN: Oral vancomycin and bicarb drip, taper Levophed for hypotension down, bicarb drip, dialysis, tube feeding, treat C difficile colitis. Patient is improving. Prognosis guarded. MMODL / IJN: [id number] /
[2018-11-17 10:10] LABS: Glucose,Whole Blood 191 mg/dL (75-99)
[2018-11-17] MEDS: HEPARIN SOD,PORK IN 0.45% NACL 25,000 UNIT in 0.45% NACL 1 250ML.BAG IV SCH (10:18)
[2018-11-17 11:08] LABS: Albumin 2.3 g/dL (3.5-5.0); Bilirubin, Delta 0.5 mg/dL (0.0-0.2); Total Bilirubin 0.5 mg/dL (0.2-1.3)
[2018-11-17 12:10] LABS: Glucose,Whole Blood 180 mg/dL (75-99)
[2018-11-17 13:51] LABS: Glucose,Whole Blood 153 mg/dL (75-99)
[2018-11-17 15:16] LABS: Glucose,Whole Blood 135 mg/dL (75-99)
--- NOTE | 2018-11-17 15:44 | P.PN ---
Subjective Progress Note Date: 11/17/18 (Critical care time 45 minutes) Principal diagnosis: Acute renal failure, altered mental status likely related to acute renal failure , hypotension, severe sepsis, hypertension, A. fib with RVR Right lower extremity venous thrombosis, chronic intermittent thromboembolism, pulmonary hypertension, biventricular failure, acute on chronic systolic heart failure, acute on chronic renal failure is stage IV, small bilateral pleural effusion likely related to heart failure, morbid obesity, suspect sleep disorder breathing and sleep apnea 11/17/2018, patient seen eval reexamined during the rounds, patient had the episode of the irregular heartbeat and wide complex tachycardia while undergoing hemodialysis, the dialysis was terminated early yesterday, followed by an another episode while she was undergoing CPAP trial last night, CPAP trial was canceled at bedtime, patient remains on oral amiodarone, patient has been intermittently in and out of sinus rhythm as well as the atrial fibrillation currently patient is on well-controlled ventricular rate, she is sedated with the Ativan as needed Dilaudid is being given and started for pain control, patient is now off of propofol drip, patient is due for hemodialysis as per discussion with the renal services today, radiographic studies reviewed chest x-ray fairly stable, current vent settings include assist control rate of the 20 tidal volume 500 with 5 of PEEP and 40% oxygen had peaked or pressure in mid 30s, patient remains on insulin drip about 11 units, levo fed is down to 5 mics, the stool for C. difficile is negative, labs reviewed medications reviewed care plan discussed with the staff as well as the renal service at length critical care time spent 45 minutes 11/16/2018, patient seen eval examined during the rounds she is still under affect of propofol which has been discontinued and has been resumed though, patient has some loose stool which has been sent for C. difficile, hemodynamic status slightly improved patient is now on 4 mics of levo fed drip, ventilator setting remains as stable, arterial blood gas revealed suggestive of respiratory and metabolic acidosis, care plan discussed with the staff at length , will continue current supportive care and agree with hemodialysis later on today patient is being started on IV Solu-Medrol continue breathing treatment in addition will DC the propofol "patient on morphine and Ativan and set up a protocol for weaning will do CPAP and pressure support trial with 5 and 10 twice a day for one to 2 hours as tolerated blood patient to be more awake now, critical care time spent 35 minutes 11/15/2018, patient seen eval examined during the rounds clinically has been doing well awake and alert levo fed drip is down to 11 mics, ventilator setting remains stable, patient remains on heparin drip, currently patient is assist control rate of 20 breathing 20 tidal volume of 5oo, 40% oxygen and 5 of PEEP, the acral cyanosis essentially unchanged, patient has very minimal urine output , labs reviewed medications reviewed, we'll taper down the propofol drip with that and hemodynamics will improve also can initiate the weaning trial will see if patient can tolerate a trial for half an hour with CPAP 5 and pressure support of 5 11/14/2018, patient seen eval examined during the rounds clinically has been doing essentially unchanged status post hemodialysis 1.5 L of fluid has been removed, labs reviewed medications reviewed care plan discussed, the BUN/ creatinine improved to 44 and 4.9, liver function continued to improve 11/13/2018, patient seen and evaluated examined during the rounds, patient does withdraws to pain and physical stimuli, she is sedated with propofol drip, patient is on 25 mics of propofol if lower down becomes restless less anxious and agitated, patient has been remain on heparin drip tolerating very well no evidence of bleeding has been seen, the acral cyanosis in the upper extremity appears to have improved today however in the lower extremity remains unchanged , patient is also on bicarb drip U fed drip is down to 14 mics which is gradually being titrated patient is on insulin drip 2.5 units an hour for hyperglycemia, her peak airway pressures 33 her vent settings include assist control rate of 20 breathing 20 tidal volume 505 of PEEP and 40% oxygen, her sputum culture results and reports are reviewed no growth has been noted blood cultures no growth so far, patient was able to get the hemodialysis yesterday 1.5 L of fluid has been removed, labs from today reviewed white cell count continue to go down is 10,900 hemoglobin remained stable 8.5, patient is well anticoagulated with IV heparin, platelet count remains stable but however slow decline has as been noted which is being monitored observe his 135, patient is on tube feed tolerating very well slowly been escalated, BUN/creatinine has improved to 38 and 4.1, sodium is 132, LFT continued to improve AST/ALT now in to low thousands, IV amiodarone infusion has a stab patient is now on by mouth amiodarone no new episodes of A. fib RVR or V. tach has been noted, chest x-ray remains stable, critical care time spent 45 minutes 11/12/2018, patient seen eval examined during the rounds clinically patient is slightly improved in terms of laboratory data and hemodynamic support, patient remains sedated with propofol drip currently the dose is down to 40 mics, it is down to 20 mics patient continued to manifest ischemic changes in the toes as well as in the fingertips, bicarb drip is being given to counteract severe profound metabolic peripheral acidosis, she remains on full ventilator support with assist control of 20 tidal volume of 500, PEEP of 5, FiO2 down to 65%, oxygen saturation is 100% as checked with the right ear lobe, patient is now in sinus rhythm has been in A. fib but spontaneously converted patient has been amiodarone IV which is to be switched to oral aspirin cardiovascular services, current infusions include heparin drip tolerating very well no new bleeding has been seen along with levo fed drip 20 mics, propofol drip and bicarb drip, respiratory secretions are minimal, bowel sounds are hypoactive, no evidence of bleeding has been seen patient to be started on tube feed and dialysis is being planned later on today as well as per discussion with the renal services, answers are all negative so far, chest x-ray shows right lower lobe subsegmental atelectasis small effusion which is stable, leukocytosis improved today compared to yesterday, critical care time spent 35 minutes 11/11/2018, patient seen eval examined during the rounds clinically patient remains sedated and intubated, currently patient is on now full ventilator support she is on assist control rate of 20 breathing 20 tidal volume of 505 of PEEP and 75% oxygen, patient remains on heparin drip which is has been started this morning, also on propofol drip 45 mics, levo fed drip is off 24 mics, patient does have been noted to have as a spasm in the upper extremity as well as lower extremity with bluish discoloration, patient has being restarted on heparin drip to optimize the levo fed to contract severe profound metabolic acidosis, reviewed medications reviewed care plan discussed with the staff at length, patient will need a arterial line attempted but unable to cannulate the femoral artery, however able to access the femoral vein a triple-lumen catheter most of the infusions are incompatible with each other, dialysis is not performed due to unstable situation and condition, urine output remains very minimal, Keofeed to be started heparin to be continued monitor hemoglobin closely, critical care time spent 45 minutes including procedure, Patient was intubated last night due to severe tachypnea and tachycardia and intermittent runs of the V. tach along with atrial fibrillation, patient has been initiated amiodarone drip as well, given that ABG could not be obtained venous blood gases are being used 11/10/2018, patient seen eval reexamined during the rounds clinically patient has a not much change from baseline has been transfused 1 unit of packed RBC patient to has been more lethargic but readily arousable arterial blood gas couldn't be obtained a venous blood gas has been performed continued to show respiratory acidosis combined with metabolic acidosis, patient is due for dialysis today also been planned for EGD which has been performed some gastritis has been noted with some white patches suggestive of ischemic changes cannot be excluded for details please refer to EGD note, patient remains on 7 mics of levo fed which is to be titrated down as blood pressure has improved, we will do low-dose bicarb drip as well patient did receive a dose of desmopressin earlier this morning, patient remains on BiPAP 15/10 with the FiO2 to keep saturation over 90-94%, patient remain somnolent and lethargic but readily arousable respond appropriately when awake then goes right back to sleep , patient did receive a dose of Xanax 11/08/2018, patient seen eval reexamined during the rounds clinically patient remains marginal continue require vasopressors currently patient is on 19 mics of levo fed drip, during dialysis patient had episode of the tachyarrhythmia requiring amiodarone now patient after the initial IV boluses back to sinus rhythm, hemodynamic status is overall stable but marginal, urine output remains very low, patient did tolerate the hemodialysis fairly well earlier this morning except the findings as noted to more old bleeding noted it appears to be old blood, patient is currently on desmopressin drip, also has been infused with 1 unit of packed RBC, heparin drip has been on hold since yesterday, vascular surgery has been consulted for evaluation of IVC filter as patient has deep venous thrombosis right lower extremity, sugars continue to be run on the higher side remains on insulin drip, patient is on proton pump inhibitor IV with frequent monitoring with monitoring observation her hemoglobin him to keep hemoglobin over 7 no active bleeding however has been noted by GI services has been consulted as well for GI bleed, Estrace standpoint tolerating BiPAP very well currently patient is on BiPAP with 12 of BiPAP the and 5 EPAP respiratory rate is 22 her spontaneous tidal volumes ranging in mid 400 range, she is on 40 % oxygen, arterial blood gas couldn't be drawn, labs medications and radiographic studies reviewed culture results are reviewed as well no positive cultures been seen patient remains on Zosyn, critical care time spent 35 minutes 11/07/2018, patient seen and evaluated examined during the rounds this morning critical care time spent 40 minutes, patient has removed to the ICU from medical floor as she was hypotensive with poor urine output in addition patient has been more somnolent and lethargic she did have receive a dose of Xanax on the floor, after arrival in ICU patient remains very hypotensive with tachycardia was given multiple fluid boluses to improve the hemodynamics however eventually starting the levo fed drip, patient does have 2 peripheral IVs one of them is not functioning very well, worsening of renal function has been noted the renal services planning to do hemodialysis, patient has very poor peripheral arterial disease unable to obtain ABG in addition to that very poor peripheral pulses are present, patient is arousable opens eyes follow simple commands but remains very anxious and agitated, patient eventually went up to 25 mics of levo fed drip with a systolic blood pressure ranging about 100 210, urine output has been very minimal, given that the lack of ability of IV axis will proceed with a central line however patient needed dialysis port as well will do a trilysis catheter (hemodialysis catheter with extra port), care plan discussed with the vascular surgery as well and renal services planning to do hemodialysis later on today provided hemodynamics remain stable, due to anticipated profound metabolic acidosis patient has been started on bicarb drip , patient is being kept on IV Zosyn heparin has been on hold due to procedures as well as elevated PTT labs reviewed medications reviewed radiographic studies reviewed as well 11/06/2018, patient seen eval examined during the rounds clinically patient has a been doing relatively better in terms of shortness of breath and swelling of the lower extremity patient is currently on room air however renal function continued to go up slightly and Lasix dose is being adjusted by renal service labs reviewed medications reviewed for now we'll continue IV heparin hopefully next 24-48 hours we'll switch it to oral anticoagulants 11/05/2018, patient seen eval reexamined during the rounds clinically has been doing relatively better in terms of breathing leg swelling the lower extremity is slightly better patient is on anticoagulation with IV heparin for DVT thrombosis of lower extremity on the right side also probable pulmonary embolism as well Patient presented to the hospital with worsening dyspnea and edema. Patient states she's been getting progressively short of breath over the last 1 week. She initially thought it was asthma but the symptoms did not improve with nebulized treatments. She also noticed edema in her legs. She states she does not take any diuretics at home. She admits to good urine output. No hematuria or dysuria. No vomiting or diarrhea. Oral intake has been fair. Denies use of NSAIDs. Chest CT revealed bilateral pleural effusions. Echocardiogram revealed ejection fraction of 35-40% with severe pulmonary hypertension. Currently maintained on Lasix 40 mg IV twice daily. She has been voiding. No fever or chills. Her duplex ultrasound of the lower extremity came back positive for DVT patient is now being started on IV heparin Objective - Vital Signs Vital signs: Vital Signs Temp 98 F 11/17/18 12:00 Pulse 81 11/17/18 15:00 Resp 29 H 11/17/18 15:24 BP 106/62 11/17/18 15:00 Pulse Ox 95 11/17/18 15:22 Intake & Output 11/16/18 11/17/18 11/17/18 18:59 06:59 18:59 Intake Total 419.458 1155.227 630.111 Output Total 69 0 2 Balance 400.358 7569.227 628.111 Weight 131.6 kg 131.6 kg Intake: IV 260 260 190 Piperacillin-Tazobactam 3 100 100 100 .375 gm In Sodium Chloride 0.9% 100 ml @ 25 mls/hr IVPB Q12HR [facility] Rx #:[id number] Sodium Chloride 0.9% 1, 160 160 90 000 ml @ 10 mls/hr IV . Q24H [facility] Rx#:[id number] Intake, IV Titration 138.849 315.227 101.111 Amount Heparin Sod,Pork in 0.45% 111.007 179.515 47.961 NaCl 25,000 unit In 0.45 % NaCl 1 250ml.bag @ 8.45 UNITS/KG/HR 9.97 mls/hr IV .Q24H [facility] Rx#: [id number] Insulin Regular 100 unit 27.842 45.248 38.178 In Sodium Chloride 0.9% 100 ml @ Per Protocol IV .Q0M [facility] Rx#:[id number] Norepinephrine 16 mg In 90.464 14.972 Sodium Chloride 0.9% 250 ml @ Titrate IV .Q0M [facility] Rx#:[id number] Oral 0 Tube Feeding 279 496 279 Other 90 90 60 Output: Urine 67 0 0 Stool 2 2 Other: Voiding Method Indwelling Catheter Indwelling Catheter Indwelling Catheter # Voids 0 0 0 - Exam - Constitutional General appearance: disheveled, mild distress, morbidly obese, intermittently anxious and agitated now relatively more comfortable on full ventilator support - Neck Neck: normal ROM Carotids: bilateral: upstroke normal Thyroid: bilateral: normal size - Respiratory Respiratory: bilateral: CTA, few basal rales, negative: diminished, dullness - Cardiovascular Rhythm: regular Heart sounds: normal: S1, S2 - Integumentary Integumentary: normal turgor Abdomen soft - Neurologic Neurologic: CNII-XII intact - Musculoskeletal Musculoskeletal: Moving all 4 extremity good tone in all 4 extremity, peripheral acral cyanosis in the toes and the fingertips noted as dictated above , the cyanosis in the fingertips have appeared to improve - Psychiatric Psychiatric: A&O x's 2, in appropriate affect, at times become anxious and agitated and combative - Labs CBC & Chem 7: 11/17/18 05:20 11/17/18 05:20 Labs: Abnormal Lab Results - Last 24 Hours (Table) 11/16/18 11/16/18 11/16/18 Range/Units 17:30 18:44 20:59 RBC (3.80-5.40) m/uL Hgb (11.4-16.0) gm/dL Hct (34.0-46.0) % MCHC (31.0-37.0) g/dL RDW (11.5-15.5) % Lymphocytes # (Manual) (1.0-4.8) k/uL Nucleated RBCs (0-0) /100 WBC APTT (22.0-30.0) sec Sodium (137-145) mmol/L BUN (7-17) mg/dL Creatinine (0.52-1.04) mg/dL Glucose (74-99) mg/dL POC Glucose (mg/dL) 204 H 192 H 176 H (75-99) mg/dL Calcium (8.4-10.2) mg/dL Magnesium (1.6-2.3) mg/dL Delta Bilirubin (0.0-0.2) mg/dL AST (14-36) U/L ALT (9-52) U/L Total Protein (6.3-8.2) g/dL Albumin (3.5-5.0) g/dL 11/16/18 11/16/18 11/17/18 Range/Units 21:11 23:02 01:00 RBC (3.80-5.40) m/uL Hgb (11.4-16.0) gm/dL Hct (34.0-46.0) % MCHC (31.0-37.0) g/dL RDW (11.5-15.5) % Lymphocytes # (Manual) (1.0-4.8) k/uL Nucleated RBCs (0-0) /100 WBC APTT 53.0 H (22.0-30.0) sec Sodium (137-145) mmol/L BUN (7-17) mg/dL Creatinine (0.52-1.04) mg/dL Glucose (74-99) mg/dL POC Glucose (mg/dL) 189 H 177 H (75-99) mg/dL Calcium (8.4-10.2) mg/dL Magnesium (1.6-2.3) mg/dL Delta Bilirubin (0.0-0.2) mg/dL AST (14-36) U/L ALT (9-52) U/L Total Protein (6.3-8.2) g/dL Albumin (3.5-5.0) g/dL 11/17/18 11/17/18 11/17/18 Range/Units 02:08 03:06 05:16 RBC (3.80-5.40) m/uL Hgb (11.4-16.0) gm/dL Hct (34.0-46.0) % MCHC (31.0-37.0) g/dL RDW (11.5-15.5) % Lymphocytes # (Manual) (1.0-4.8) k/uL Nucleated RBCs (0-0) /100 WBC APTT (22.0-30.0) sec Sodium (137-145) mmol/L BUN (7-17) mg/dL Creatinine (0.52-1.04) mg/dL Glucose (74-99) mg/dL POC Glucose (mg/dL) 176 H 172 H 176 H (75-99) mg/dL Calcium (8.4-10.2) mg/dL Magnesium (1.6-2.3) mg/dL Delta Bilirubin (0.0-0.2) mg/dL AST (14-36) U/L ALT (9-52) U/L Total Protein (6.3-8.2) g/dL Albumin (3.5-5.0) g/dL 11/17/18 11/17/18 11/17/18 Range/Units 05:20 05:20 05:20 RBC 2.72 L (3.80-5.40) m/uL Hgb 8.3 L (11.4-16.0) gm/dL Hct 27.0 L (34.0-46.0) % MCHC 30.7 L (31.0-37.0) g/dL RDW 20.7 H (11.5-15.5) % Lymphocytes # (Manual) 0.96 L (1.0-4.8) k/uL Nucleated RBCs 5 H (0-0) /100 WBC APTT 46.3 H (22.0-30.0) sec Sodium 132 L (137-145) mmol/L BUN 55 H (7-17) mg/dL Creatinine 6.18 H (0.52-1.04) mg/dL Glucose 169 H (74-99) mg/dL POC Glucose (mg/dL) (75-99) mg/dL Calcium 7.9 L (8.4-10.2) mg/dL Magnesium 2.5 H (1.6-2.3) mg/dL Delta Bilirubin 0.5 H (0.0-0.2) mg/dL AST 52 H (14-36) U/L ALT 551 H (9-52) U/L Total Protein 5.0 L (6.3-8.2) g/dL Albumin 2.3 L (3.5-5.0) g/dL 11/17/18 11/17/18 11/17/18 Range/Units 07:00 08:06 09:22 RBC (3.80-5.40) m/uL Hgb (11.4-16.0) gm/dL Hct (34.0-46.0) % MCHC (31.0-37.0) g/dL RDW (11.5-15.5) % Lymphocytes # (Manual) (1.0-4.8) k/uL Nucleated RBCs (0-0) /100 WBC APTT (22.0-30.0) sec Sodium (137-145) mmol/L BUN (7-17) mg/dL Creatinine (0.52-1.04) mg/dL Glucose (74-99) mg/dL POC Glucose (mg/dL) 178 H 181 H 189 H (75-99) mg/dL Calcium (8.4-10.2) mg/dL Magnesium (1.6-2.3) mg/dL Delta Bilirubin (0.0-0.2) mg/dL AST (14-36) U/L ALT (9-52) U/L Total Protein (6.3-8.2) g/dL Albumin (3.5-5.0) g/dL 11/17/18 11/17/18 11/17/18 Range/Units 10:07 11:56 12:30 RBC (3.80-5.40) m/uL Hgb (11.4-16.0) gm/dL Hct (34.0-46.0) % MCHC (31.0-37.0) g/dL RDW (11.5-15.5) % Lymphocytes # (Manual) (1.0-4.8) k/uL Nucleated RBCs (0-0) /100 WBC APTT 63.0 H (22.0-30.0) sec Sodium (137-145) mmol/L BUN (7-17) mg/dL Creatinine (0.52-1.04) mg/dL Glucose (74-99) mg/dL POC Glucose (mg/dL) 191 H 180 H (75-99) mg/dL Calcium (8.4-10.2) mg/dL Magnesium (1.6-2.3) mg/dL Delta Bilirubin (0.0-0.2) mg/dL AST (14-36) U/L ALT (9-52) U/L Total Protein (6.3-8.2) g/dL Albumin (3.5-5.0) g/dL 11/17/18 11/17/18 Range/Units 13:48 15:12 RBC (3.80-5.40) m/uL Hgb (11.4-16.0) gm/dL Hct (34.0-46.0) % MCHC (31.0-37.0) g/dL RDW (11.5-15.5) % Lymphocytes # (Manual) (1.0-4.8) k/uL Nucleated RBCs (0-0) /100 WBC APTT (22.0-30.0) sec Sodium (137-145) mmol/L BUN (7-17) mg/dL Creatinine (0.52-1.04) mg/dL Glucose (74-99) mg/dL POC Glucose (mg/dL) 153 H 135 H (75-99) mg/dL Calcium (8.4-10.2) mg/dL Magnesium (1.6-2.3) mg/dL Delta Bilirubin (0.0-0.2) mg/dL AST (14-36) U/L ALT (9-52) U/L Total Protein (6.3-8.2) g/dL Albumin (3.5-5.0) g/dL Microbiology - Last 24 Hours (Table) 11/16/18 08:00 Stool Culture - Preliminary Stool Assessment and Plan Assessment: Acute on chronic renal failure and anuric Loose stool diarrhea new-onset stool has been sent for C. difficile is negative will monitor observe repeat test, the loose stool could be associated to feed or antibiotic associated with discussed with infectious disease services if Zosyn can be discontinued Runs of the atrial fibrillation and tachyarrhythmia and wide complex tachycardia , now patient is back in sinus rhythm, amiodarone has been oral Acute respiratory failure multifactorial due to profound metabolic acidosis along with arrhythmia and congestive heart failure likely biventricular failure and pulmonary embolism Severe sepsis on broad-spectrum antibiotics, possible right lower lobe pneumonia cannot be excluded less likely aspiration related as patient has a good gag flex GI bleed of unclear source status post blood transfusion, hemoglobin has been stable now no evidence of active bleeding has been seen on IV heparin Altered mental status and metabolic encephalopathy likely multifactorial related to renal failure Deep venous thrombosis of right lower extremity and possible pulmonary embolism 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 Small bilateral pleural effusion more so on the right side compared to left side Acute blood loss anemia Non-STEMI Plan: Taper sedation initiated weaning trial, protocol has been advised Follow-up on his stool results for the C. difficile Anticoagulation currently is being continued in the form of IV heparin, tolerating it fairly well We will defer placement of IVC filter to vascular surgery We'll do a PICC line in the right upper extremity if okay with the INR Continue daily hemodialysis as tolerated Blood transfusion as needed keep hemoglobin over 7 Optimize therapy for heart failure Monitor renal functions closely Further recommendations pending plan of care as per clinical response of the patient Bicarb drip low-dose to be reinitiated due to vasa spasm and cyanotic changes into the toes Taper levo fed drip as tolerated Taper oxygen down to 35-40% next 24 We'll continue to taper down the pressors as tolerated continue bicarb drip Continue tube feed tube feed Once patient is more hemodynamically stable reinitiated weaning as tolerated Critical care time spent 45 minutes Time with Patient: Greater than 30
[2018-11-17] MEDS: ALBUTEROL NEBULIZED 2.5 MG/3 ML INHALATION PRN ×2 (16:06→19:50)
[2018-11-17 16:10] LABS: Glucose,Whole Blood 111 mg/dL (75-99)
[2018-11-17 17:11] LABS: Glucose,Whole Blood 138 mg/dL (75-99)
[2018-11-17] MEDS: NOREPINEPHRINE 16 MG in SODIUM CHLORIDE 0.9% 250 ML IV SCH (17:16)
[2018-11-17 17:57] LABS: Glucose,Whole Blood 162 mg/dL (75-99)
[2018-11-17 19:09] LABS: Glucose,Whole Blood 202 mg/dL (75-99)
[2018-11-17] MEDS: HYDROmorphone 0.5 MG/0.5 ML SYRINGE IVP PRN (19:40)
[2018-11-17 20:04] LABS: Glucose,Whole Blood 211 mg/dL (75-99)
[2018-11-17] MEDS: PANTOPRAZOLE 40 MG TABLET PO SCH (20:24)
[2018-11-17] MEDS: PRAVASTATIN SODIUM 20 MG TAB PO SCH (20:24)
[2018-11-17] MEDS: MONTELUKAST 10 MG TAB PO SCH (20:27)
[2018-11-17 21:34] LABS: Glucose,Whole Blood 188 mg/dL (75-99)
[2018-11-17 22:18] LABS: Glucose,Whole Blood 170 mg/dL (75-99)
[2018-11-17] MEDS ORDERED: DIPHENOX-ATROP 2.5-0.025 MG 1 EACH TAB NG-TUBE PRN (22:33)
--- NOTE | 2018-11-17 23:35 | PN ---
PROGRESS NOTE DATE OF SERVICE: 11/17/2018 REASON FOR FOLLOWUP: Pneumonia. INTERVAL HISTORY: The patient is currently afebrile. The patient is hemodynamically stable. The patient remains intubated on the vent. FiO2 is 40%, stable. Patient has developed significant diarrhea. Stool for C difficile was sent which was negative. White count has been normal. PHYSICAL EXAMINATION: Her blood pressure is 102/42 with a pulse of 81, temperature of 98.1. She is 98% on 40% FiO2. General description is a middle-aged female lying in bed in no distress. RESPIRATORY SYSTEM: Unlabored breathing with decreased breath sounds at the base. No wheeze. HEART: S1, S2. Regular rate and rhythm. ABDOMEN: Soft. No tenderness. LABS: Hemoglobin 8.3, white count 7.4. BUN 55, creatinine 6.18. She did have a chest x-ray which shows near-complete resolution of the right lower lobe infiltrate. DIAGNOSTIC IMPRESSION AND PLAN: Patient with acute respiratory failure which is likely multifactorial in this patient now developing significant diarrhea, more likely antibiotic-associated. The patient's underlying pneumonia has been adequately treated. Has received more than 10 days of IV antibiotic therapy. At this time we will go ahead and discontinue the Zosyn and monitor clinical course closely. With the negative stool for C difficile, the patient can be treated medically with Lomotil to control her diarrhea. Will monitor her clinical course closely. Continue supportive care. FREDERIC / THAIS: [id number] /
[2018-11-18 00:08] LABS: Glucose,Whole Blood 144 mg/dL (75-99)
[2018-11-18] MEDS: LORazepam 2 MG/ML INJ IV PRN ×5 (01:09→23:37)
[2018-11-18 02:23] LABS: Glucose,Whole Blood 169 mg/dL (75-99)
[2018-11-18 04:17] LABS: Glucose,Whole Blood 140 mg/dL (75-99)
[2018-11-18 05:08] LABS: Glucose,Whole Blood 155 mg/dL (75-99)
[2018-11-18 05:37] LABS: ABG Base Excess -1.3 mmol/L; ABG HCO3 25 mmol/L (21-25); ABG Oxygen Saturation 97.6 % (94-97); ABG PCO2 47 mmHg (35-45); ABG PH 7.33 (7.35-7.45); ABG PO2 95 mmHg (83-108); ABG TCO2 26 mmol/L (19-24)
[2018-11-18 06:27] LABS: Magnesium 2.4 mg/dL (1.6-2.3)
[2018-11-18 06:44] LABS: Calcium 6.4 mg/dL (8.4-10.2)
[2018-11-18 06:47] LABS: Anisocytosis Moderate; HCT 25.6 % (34.0-46.0); HGB 7.7 gm/dL (11.4-16.0); Hypochromasia Marked; MCH 29.8 pg (25.0-35.0); MCV 99.2 fL (80.0-100.0); Macrocytosis Moderate; Mean Platelet Volume 8.9; Platelet Count 252 k/uL (150-450); Poikilocytosis Slight; RBC 2.58 m/uL (3.80-5.40); RDW 21.3 % (11.5-15.5)
[2018-11-18] MEDS: SODIUM CHLORIDE 0.9% 1,000 ML IV SCH (06:54)
[2018-11-18] MEDS: HEPARIN SOD,PORK IN 0.45% NACL 25,000 UNIT in 0.45% NACL 1 250ML.BAG IV SCH (06:54)
--- NOTE | 2018-11-18 07:11 | P.PN ---
Subjective Progress Note Date: 11/18/18 Principal diagnosis: CHF/cardiomyopathy This is a pleasant 58-year-old female patient with an extensive past medical history for her age consistent of coronary artery disease, peripheral arterial disease, diabetes, hypertension, dyslipidemia, and chronic kidney disease, was admitted to the hospital with chest discomfort and was ruled in for acute non- ST patient myocardial infarction and also with congestive heart failure secondary to systolic dysfunction. The patient was treated medically for the non-STEMI The echocardiogram revealed impaired LV function with EF of 35%, mild aortic stenosis, severe pulmonary hypertension, and moderate tricuspid regurgitation. On follow-up with the patient today, 11/18/2018, the patient continues to be intubated. She is awake this morning and she's of sedation. She has been following commands. She continues to be on norepinephrine but the dose has been coming down. She continues to be in normal sinus mechanism. She is on amiodarone by mouth. She is also on heparin IV. I would consider switching the patient to oral anticoagulation down the line once we know for sure there is no need for any noncardiac procedure like PEG or trach tube. The hemoglobin continues to be above 7. Objective - Vital Signs Vital signs: Vital Signs Temp 98.5 F 11/18/18 04:00 Pulse 85 11/18/18 06:00 Resp 21 11/18/18 06:00 BP 108/56 11/18/18 06:00 Pulse Ox 98 11/18/18 04:00 Intake & Output 11/17/18 11/18/18 11/18/18 18:59 06:59 18:59 Intake Total 994.890 6659.673 Output Total 7 12 Balance 534.010 1241.673 Weight 131.6 kg 132.4 kg Intake: IV 220 290 Piperacillin-Tazobactam 3 100 100 .375 gm In Sodium Chloride 0.9% 100 ml @ 25 mls/hr IVPB Q12HR [facility] Rx #:[id number] Sodium Chloride 0.9% 1, 120 190 000 ml @ 10 mls/hr IV . Q24H [facility] Rx#:[id number] Intake, IV Titration 173.299 384.673 Amount Heparin Sod,Pork in 0.45% 47.961 250 NaCl 25,000 unit In 0.45 % NaCl 1 250ml.bag @ 8.45 UNITS/KG/HR 9.97 mls/hr IV .Q24H [facility] Rx#: [id number] Insulin Regular 100 unit 38.178 36.192 In Sodium Chloride 0.9% 100 ml @ Per Protocol IV .Q0M [facility] Rx#:[id number] Norepinephrine 16 mg In 87.160 98.481 Sodium Chloride 0.9% 250 ml @ Titrate IV .Q0M [facility] Rx#:[id number] Oral 0 Tube Feeding 341 434 Other 90 Output: Urine 5 10 Stool 2 2 Other: Voiding Method Indwelling Catheter Indwelling Catheter # Voids 0 0 - Constitutional General appearance: Present: no acute distress - Respiratory Respiratory: bilateral: diminished - Cardiovascular Rhythm: regular Heart sounds: normal: S1, S2 - Labs CBC & Chem 7: 11/18/18 05:36 11/18/18 05:36 Labs: Abnormal Lab Results - Last 24 Hours (Table) 11/17/18 11/17/18 11/17/18 Range/Units 05:20 08:06 09:22 RBC (3.80-5.40) m/uL Hgb (11.4-16.0) gm/dL Hct (34.0-46.0) % MCHC (31.0-37.0) g/dL RDW (11.5-15.5) % APTT (22.0-30.0) sec ABG pH (7.35-7.45) ABG pCO2 (35-45) mmHg ABG Total CO2 (19-24) mmol/L ABG O2 Saturation (94-97) % Sodium 132 L (137-145) mmol/L BUN 55 H (7-17) mg/dL Creatinine 6.18 H (0.52-1.04) mg/dL Glucose 169 H (74-99) mg/dL POC Glucose (mg/dL) 181 H 189 H (75-99) mg/dL Calcium 7.9 L (8.4-10.2) mg/dL Magnesium 2.5 H (1.6-2.3) mg/dL Delta Bilirubin 0.5 H (0.0-0.2) mg/dL AST 52 H (14-36) U/L ALT 551 H (9-52) U/L Total Protein 5.0 L (6.3-8.2) g/dL Albumin 2.3 L (3.5-5.0) g/dL 11/17/18 11/17/18 11/17/18 Range/Units 10:07 11:56 12:30 RBC (3.80-5.40) m/uL Hgb (11.4-16.0) gm/dL Hct (34.0-46.0) % MCHC (31.0-37.0) g/dL RDW (11.5-15.5) % APTT 63.0 H (22.0-30.0) sec ABG pH (7.35-7.45) ABG pCO2 (35-45) mmHg ABG Total CO2 (19-24) mmol/L ABG O2 Saturation (94-97) % Sodium (137-145) mmol/L BUN (7-17) mg/dL Creatinine (0.52-1.04) mg/dL Glucose (74-99) mg/dL POC Glucose (mg/dL) 191 H 180 H (75-99) mg/dL Calcium (8.4-10.2) mg/dL Magnesium (1.6-2.3) mg/dL Delta Bilirubin (0.0-0.2) mg/dL AST (14-36) U/L ALT (9-52) U/L Total Protein (6.3-8.2) g/dL Albumin (3.5-5.0) g/dL 11/17/18 11/17/18 11/17/18 Range/Units 13:48 15:12 16:08 RBC (3.80-5.40) m/uL Hgb (11.4-16.0) gm/dL Hct (34.0-46.0) % MCHC (31.0-37.0) g/dL RDW (11.5-15.5) % APTT (22.0-30.0) sec ABG pH (7.35-7.45) ABG pCO2 (35-45) mmHg ABG Total CO2 (19-24) mmol/L ABG O2 Saturation (94-97) % Sodium (137-145) mmol/L BUN (7-17) mg/dL Creatinine (0.52-1.04) mg/dL Glucose (74-99) mg/dL POC Glucose (mg/dL) 153 H 135 H 111 H (75-99) mg/dL Calcium (8.4-10.2) mg/dL Magnesium (1.6-2.3) mg/dL Delta Bilirubin (0.0-0.2) mg/dL AST (14-36) U/L ALT (9-52) U/L Total Protein (6.3-8.2) g/dL Albumin (3.5-5.0) g/dL 11/17/18 11/17/18 11/17/18 Range/Units 17:10 17:52 19:05 RBC (3.80-5.40) m/uL Hgb (11.4-16.0) gm/dL Hct (34.0-46.0) % MCHC (31.0-37.0) g/dL RDW (11.5-15.5) % APTT (22.0-30.0) sec ABG pH (7.35-7.45) ABG pCO2 (35-45) mmHg ABG Total CO2 (19-24) mmol/L ABG O2 Saturation (94-97) % Sodium (137-145) mmol/L BUN (7-17) mg/dL Creatinine (0.52-1.04) mg/dL Glucose (74-99) mg/dL POC Glucose (mg/dL) 138 H 162 H 202 H (75-99) mg/dL Calcium (8.4-10.2) mg/dL Magnesium (1.6-2.3) mg/dL Delta Bilirubin (0.0-0.2) mg/dL AST (14-36) U/L ALT (9-52) U/L Total Protein (6.3-8.2) g/dL Albumin (3.5-5.0) g/dL 11/17/18 11/17/18 11/17/18 Range/Units 19:54 21:31 22:04 RBC (3.80-5.40) m/uL Hgb (11.4-16.0) gm/dL Hct (34.0-46.0) % MCHC (31.0-37.0) g/dL RDW (11.5-15.5) % APTT (22.0-30.0) sec ABG pH (7.35-7.45) ABG pCO2 (35-45) mmHg ABG Total CO2 (19-24) mmol/L ABG O2 Saturation (94-97) % Sodium (137-145) mmol/L BUN (7-17) mg/dL Creatinine (0.52-1.04) mg/dL Glucose (74-99) mg/dL POC Glucose (mg/dL) 211 H 188 H 170 H (75-99) mg/dL Calcium (8.4-10.2) mg/dL Magnesium (1.6-2.3) mg/dL Delta Bilirubin (0.0-0.2) mg/dL AST (14-36) U/L ALT (9-52) U/L Total Protein (6.3-8.2) g/dL Albumin (3.5-5.0) g/dL 11/18/18 11/18/18 11/18/18 Range/Units 00:05 02:12 04:06 RBC (3.80-5.40) m/uL Hgb (11.4-16.0) gm/dL Hct (34.0-46.0) % MCHC (31.0-37.0) g/dL RDW (11.5-15.5) % APTT (22.0-30.0) sec ABG pH (7.35-7.45) ABG pCO2 (35-45) mmHg ABG Total CO2 (19-24) mmol/L ABG O2 Saturation (94-97) % Sodium (137-145) mmol/L BUN (7-17) mg/dL Creatinine (0.52-1.04) mg/dL Glucose (74-99) mg/dL POC Glucose (mg/dL) 144 H 169 H 140 H (75-99) mg/dL Calcium (8.4-10.2) mg/dL Magnesium (1.6-2.3) mg/dL Delta Bilirubin (0.0-0.2) mg/dL AST (14-36) U/L ALT (9-52) U/L Total Protein (6.3-8.2) g/dL Albumin (3.5-5.0) g/dL 11/18/18 11/18/18 11/18/18 Range/Units 04:56 05:35 05:36 RBC (3.80-5.40) m/uL Hgb (11.4-16.0) gm/dL Hct (34.0-46.0) % MCHC (31.0-37.0) g/dL RDW (11.5-15.5) % APTT (22.0-30.0) sec ABG pH 7.33 L (7.35-7.45) ABG pCO2 47 H (35-45) mmHg ABG Total CO2 26 H (19-24) mmol/L ABG O2 Saturation 97.6 H (94-97) % Sodium 134 L (137-145) mmol/L BUN 50 H (7-17) mg/dL Creatinine 4.69 H (0.52-1.04) mg/dL Glucose 155 H (74-99) mg/dL POC Glucose (mg/dL) 155 H (75-99) mg/dL Calcium 6.4 L* (8.4-10.2) mg/dL Magnesium 2.4 H (1.6-2.3) mg/dL Delta Bilirubin (0.0-0.2) mg/dL AST (14-36) U/L ALT (9-52) U/L Total Protein (6.3-8.2) g/dL Albumin (3.5-5.0) g/dL 11/18/18 Range/Units 05:36 RBC 2.58 L (3.80-5.40) m/uL Hgb 7.7 L (11.4-16.0) gm/dL Hct 25.6 L (34.0-46.0) % MCHC 30.0 L (31.0-37.0) g/dL RDW 21.3 H (11.5-15.5) % APTT (22.0-30.0) sec ABG pH (7.35-7.45) ABG pCO2 (35-45) mmHg ABG Total CO2 (19-24) mmol/L ABG O2 Saturation (94-97) % Sodium (137-145) mmol/L BUN (7-17) mg/dL Creatinine (0.52-1.04) mg/dL Glucose (74-99) mg/dL POC Glucose (mg/dL) (75-99) mg/dL Calcium (8.4-10.2) mg/dL Magnesium (1.6-2.3) mg/dL Delta Bilirubin (0.0-0.2) mg/dL AST (14-36) U/L ALT (9-52) U/L Total Protein (6.3-8.2) g/dL Albumin (3.5-5.0) g/dL Assessment and Plan Assessment: Assessment #1 systolic congestive heart failure exacerbation #2 acute non-ST elevation myocardial infarction #3 acute on chronic renal failure #4 peripheral vascular disease #5 systemic hypertension #6 hyperkalemia Plan #1 continue heparin IV now. Switch to oral anticoagulation down the line #2 continue amiodarone by mouth #3 follow-up with the patient
[2018-11-18 07:25] LABS: Glucose,Whole Blood 174 mg/dL (75-99)
--- NOTE | 2018-11-18 07:32 | XR ---
EXAMINATION TYPE: XR chest 1V portable DATE OF EXAM: 11/18/2018 COMPARISON: 11/17/2018 HISTORY: SOB, Follow Up FINDINGS: Indwelling tubes and catheters are unchanged. Progressive basilar patchy densities and effusions. Stable appearance of the cardio-mediastinal structures at this time. IMPRESSION: 1. Progressive basilar patchy densities and effusions. Clinical correlation and follow up until reso lution is recommended.
--- NOTE | 2018-11-18 07:45 | P.PN ---
Subjective Patient is seen in follow-up for acute kidney injury on chronic kidney disease. Patient has chronic kidney disease stage IV with baseline creatinine near 3 secondary to diabetic kidney disease. Due to worsening renal function and oliguria, she was started on hemodialysis on November 07. She has a right IJ catheter. She remains intubated. Currently on 3 mics of Levophed. Remains oliguric. No active bleeding. Hemoglobin 7.7 today. Tolerated hemodialysis well yesterday with 2 L ultrafiltration. Afebrile. Currently on vasopressors. General: The patient appeared well nourished and normally developed. HEENT: Head exam is unremarkable. Neck is without jugular venous distension. Intubated. LUNGS: Breath sounds decreased. HEART: Rate and Rhythm are regular. First and second heart sounds normal. No murmurs, rubs or gallops. ABDOMEN: Abdominal exam reveals normal bowel sounds. Non-tender and non- distended. No evidence of peritonitis. EXTREMITITES: 1+ edema. Objective - Vital Signs Vital signs: Vital Signs Temp 98.5 F 11/18/18 04:00 Pulse 86 11/18/18 07:00 Resp 22 11/18/18 07:00 BP 101/50 11/18/18 07:00 Pulse Ox 99 11/18/18 07:00 Intake & Output 11/17/18 11/18/18 11/18/18 18:59 06:59 18:59 Intake Total 125.665 3437.673 Output Total 7 12 Balance 273.447 8330.673 Weight 131.6 kg 132.4 kg Intake: IV 220 290 Piperacillin-Tazobactam 3 100 100 .375 gm In Sodium Chloride 0.9% 100 ml @ 25 mls/hr IVPB Q12HR [facility] Rx #:[id number] Sodium Chloride 0.9% 1, 120 190 000 ml @ 10 mls/hr IV . Q24H [facility] Rx#:[id number] Intake, IV Titration 173.299 384.673 Amount Heparin Sod,Pork in 0.45% 47.961 250 NaCl 25,000 unit In 0.45 % NaCl 1 250ml.bag @ 8.45 UNITS/KG/HR 9.97 mls/hr IV .Q24H [facility] Rx#: [id number] Insulin Regular 100 unit 38.178 36.192 In Sodium Chloride 0.9% 100 ml @ Per Protocol IV .Q0M [facility] Rx#:[id number] Norepinephrine 16 mg In 87.160 98.481 Sodium Chloride 0.9% 250 ml @ Titrate IV .Q0M [facility] Rx#:[id number] Oral 0 Tube Feeding 341 434 Other 90 Output: Urine 5 10 Stool 2 2 Other: Voiding Method Indwelling Catheter Indwelling Catheter # Voids 0 0 - Labs CBC & Chem 7: 11/18/18 05:36 11/18/18 05:36 Labs: Abnormal Lab Results - Last 24 Hours (Table) 11/17/18 11/17/18 11/17/18 Range/Units 05:20 08:06 09:22 RBC (3.80-5.40) m/uL Hgb (11.4-16.0) gm/dL Hct (34.0-46.0) % MCHC (31.0-37.0) g/dL RDW (11.5-15.5) % APTT (22.0-30.0) sec ABG pH (7.35-7.45) ABG pCO2 (35-45) mmHg ABG Total CO2 (19-24) mmol/L ABG O2 Saturation (94-97) % Sodium 132 L (137-145) mmol/L BUN 55 H (7-17) mg/dL Creatinine 6.18 H (0.52-1.04) mg/dL Glucose 169 H (74-99) mg/dL POC Glucose (mg/dL) 181 H 189 H (75-99) mg/dL Calcium 7.9 L (8.4-10.2) mg/dL Magnesium 2.5 H (1.6-2.3) mg/dL Delta Bilirubin 0.5 H (0.0-0.2) mg/dL AST 52 H (14-36) U/L ALT 551 H (9-52) U/L Total Protein 5.0 L (6.3-8.2) g/dL Albumin 2.3 L (3.5-5.0) g/dL 11/17/18 11/17/18 11/17/18 Range/Units 10:07 11:56 12:30 RBC (3.80-5.40) m/uL Hgb (11.4-16.0) gm/dL Hct (34.0-46.0) % MCHC (31.0-37.0) g/dL RDW (11.5-15.5) % APTT 63.0 H (22.0-30.0) sec ABG pH (7.35-7.45) ABG pCO2 (35-45) mmHg ABG Total CO2 (19-24) mmol/L ABG O2 Saturation (94-97) % Sodium (137-145) mmol/L BUN (7-17) mg/dL Creatinine (0.52-1.04) mg/dL Glucose (74-99) mg/dL POC Glucose (mg/dL) 191 H 180 H (75-99) mg/dL Calcium (8.4-10.2) mg/dL Magnesium (1.6-2.3) mg/dL Delta Bilirubin (0.0-0.2) mg/dL AST (14-36) U/L ALT (9-52) U/L Total Protein (6.3-8.2) g/dL Albumin (3.5-5.0) g/dL 11/17/18 11/17/18 11/17/18 Range/Units 13:48 15:12 16:08 RBC (3.80-5.40) m/uL Hgb (11.4-16.0) gm/dL Hct (34.0-46.0) % MCHC (31.0-37.0) g/dL RDW (11.5-15.5) % APTT (22.0-30.0) sec ABG pH (7.35-7.45) ABG pCO2 (35-45) mmHg ABG Total CO2 (19-24) mmol/L ABG O2 Saturation (94-97) % Sodium (137-145) mmol/L BUN (7-17) mg/dL Creatinine (0.52-1.04) mg/dL Glucose (74-99) mg/dL POC Glucose (mg/dL) 153 H 135 H 111 H (75-99) mg/dL Calcium (8.4-10.2) mg/dL Magnesium (1.6-2.3) mg/dL Delta Bilirubin (0.0-0.2) mg/dL AST (14-36) U/L ALT (9-52) U/L Total Protein (6.3-8.2) g/dL Albumin (3.5-5.0) g/dL 11/17/18 11/17/18 11/17/18 Range/Units 17:10 17:52 19:05 RBC (3.80-5.40) m/uL Hgb (11.4-16.0) gm/dL Hct (34.0-46.0) % MCHC (31.0-37.0) g/dL RDW (11.5-15.5) % APTT (22.0-30.0) sec ABG pH (7.35-7.45) ABG pCO2 (35-45) mmHg ABG Total CO2 (19-24) mmol/L ABG O2 Saturation (94-97) % Sodium (137-145) mmol/L BUN (7-17) mg/dL Creatinine (0.52-1.04) mg/dL Glucose (74-99) mg/dL POC Glucose (mg/dL) 138 H 162 H 202 H (75-99) mg/dL Calcium (8.4-10.2) mg/dL Magnesium (1.6-2.3) mg/dL Delta Bilirubin (0.0-0.2) mg/dL AST (14-36) U/L ALT (9-52) U/L Total Protein (6.3-8.2) g/dL Albumin (3.5-5.0) g/dL 11/17/18 11/17/18 11/17/18 Range/Units 19:54 21:31 22:04 RBC (3.80-5.40) m/uL Hgb (11.4-16.0) gm/dL Hct (34.0-46.0) % MCHC (31.0-37.0) g/dL RDW (11.5-15.5) % APTT (22.0-30.0) sec ABG pH (7.35-7.45) ABG pCO2 (35-45) mmHg ABG Total CO2 (19-24) mmol/L ABG O2 Saturation (94-97) % Sodium (137-145) mmol/L BUN (7-17) mg/dL Creatinine (0.52-1.04) mg/dL Glucose (74-99) mg/dL POC Glucose (mg/dL) 211 H 188 H 170 H (75-99) mg/dL Calcium (8.4-10.2) mg/dL Magnesium (1.6-2.3) mg/dL Delta Bilirubin (0.0-0.2) mg/dL AST (14-36) U/L ALT (9-52) U/L Total Protein (6.3-8.2) g/dL Albumin (3.5-5.0) g/dL 11/18/18 11/18/18 11/18/18 Range/Units 00:05 02:12 04:06 RBC (3.80-5.40) m/uL Hgb (11.4-16.0) gm/dL Hct (34.0-46.0) % MCHC (31.0-37.0) g/dL RDW (11.5-15.5) % APTT (22.0-30.0) sec ABG pH (7.35-7.45) ABG pCO2 (35-45) mmHg ABG Total CO2 (19-24) mmol/L ABG O2 Saturation (94-97) % Sodium (137-145) mmol/L BUN (7-17) mg/dL Creatinine (0.52-1.04) mg/dL Glucose (74-99) mg/dL POC Glucose (mg/dL) 144 H 169 H 140 H (75-99) mg/dL Calcium (8.4-10.2) mg/dL Magnesium (1.6-2.3) mg/dL Delta Bilirubin (0.0-0.2) mg/dL AST (14-36) U/L ALT (9-52) U/L Total Protein (6.3-8.2) g/dL Albumin (3.5-5.0) g/dL 11/18/18 11/18/18 11/18/18 Range/Units 04:56 05:35 05:36 RBC (3.80-5.40) m/uL Hgb (11.4-16.0) gm/dL Hct (34.0-46.0) % MCHC (31.0-37.0) g/dL RDW (11.5-15.5) % APTT (22.0-30.0) sec ABG pH 7.33 L (7.35-7.45) ABG pCO2 47 H (35-45) mmHg ABG Total CO2 26 H (19-24) mmol/L ABG O2 Saturation 97.6 H (94-97) % Sodium 134 L (137-145) mmol/L BUN 50 H (7-17) mg/dL Creatinine 4.69 H (0.52-1.04) mg/dL Glucose 155 H (74-99) mg/dL POC Glucose (mg/dL) 155 H (75-99) mg/dL Calcium 6.4 L* (8.4-10.2) mg/dL Magnesium 2.4 H (1.6-2.3) mg/dL Delta Bilirubin (0.0-0.2) mg/dL AST (14-36) U/L ALT (9-52) U/L Total Protein (6.3-8.2) g/dL Albumin (3.5-5.0) g/dL 11/18/18 11/18/18 11/18/18 Range/Units 05:36 05:36 07:03 RBC 2.58 L (3.80-5.40) m/uL Hgb 7.7 L (11.4-16.0) gm/dL Hct 25.6 L (34.0-46.0) % MCHC 30.0 L (31.0-37.0) g/dL RDW 21.3 H (11.5-15.5) % APTT 49.6 H (22.0-30.0) sec ABG pH (7.35-7.45) ABG pCO2 (35-45) mmHg ABG Total CO2 (19-24) mmol/L ABG O2 Saturation (94-97) % Sodium (137-145) mmol/L BUN (7-17) mg/dL Creatinine (0.52-1.04) mg/dL Glucose (74-99) mg/dL POC Glucose (mg/dL) 174 H (75-99) mg/dL Calcium (8.4-10.2) mg/dL Magnesium (1.6-2.3) mg/dL Delta Bilirubin (0.0-0.2) mg/dL AST (14-36) U/L ALT (9-52) U/L Total Protein (6.3-8.2) g/dL Albumin (3.5-5.0) g/dL Assessment and Plan Plan: Assessment: 1. Acute kidney injury secondary to ATN secondary to hypotension. Creatinine peaked at 5.85 and November 07 and was also oliguric. Currently hemodialysis dependent. No hydronephrosis noted on renal ultrasound. 2. Chronic kidney disease stage IV secondary to diabetic kidney disease and nephrosclerosis with baseline creatinine near 3 according to the patient. Patient follows with a self pay specialist out of [place]. 3. Systolic CHF with ejection fraction of 30-35% with severe pulmonary hypertension and moderate tricuspid regurgitation. 4. Volume overload. 5. Hyponatremia secondary to acute kidney injury. 6. Hyperkalemia secondary to acute kidney injury. Improved with dialysis. 7. Diabetes mellitus. 8. Hypotension maintained on 3 mics of Levophed. 9. Hyperphosphatemia secondary to acute kidney injury. Maintained on PhosLo. 10. Acute blood loss anemia secondary to GI bleed. Status post blood transfusion and IV DDAVP on November 10. Status post EGD on November 10 which revealed ischemic areas in the antrum. 11. NSTEMI. Cardiology following. 12. A. fib with RVR status post amiodarone drip. Now rate controlled. 13. Hypocalcemia secondary to acute kidney injury. Corrected calcium for albumin is near 7.8. Plan: Hemodialysis today. Will try for 2 L ultrafiltration. Wean Levophed. Continue to monitor renal function and urine output. 1 g IV calcium today.
[2018-11-18] MEDS ORDERED: CALCIUM GLUCONATE 1,000 MG in SODIUM CHLORIDE 0.9% 100 ML IVPB ONE (08:15)
[2018-11-18 08:24] LABS: Glucose,Whole Blood 163 mg/dL (75-99)
[2018-11-18] MEDS: NICOTINE 21MG/24HR PATCH TRANSDERM SCH (08:27)
[2018-11-18] MEDS: methylPREDNISolone SOD SUCCI 40 MG/ML 1 ML VIAL IV SCH ×2 (08:28→20:38)
[2018-11-18] MEDS: AMIODARONE 200 MG TAB PO SCH ×2 (08:30→14:51)
[2018-11-18] MEDS: CALCIUM ACETATE 667 MG CAP PO SCH ×3 (08:30→17:02)
[2018-11-18] MEDS: ASPIRIN 81 MG PO SCH (08:31)
[2018-11-18] MEDS: PANTOPRAZOLE 40 MG TABLET PO SCH ×2 (08:31→20:38)
[2018-11-18] MEDS: FERROUS SULFATE ORAL ELIXIR 300 MG/5 ML CUP NG-TUBE SCH (08:31)
[2018-11-18 08:37] LABS: Band Neutrophils % 1 %; Lymphocytes # (M) 0.85 k/uL (1.0-4.8); Monocytes # (M) 0.43 k/uL (0-1.0); Myelocytes # (M) 0.09 k/uL (0); Myelocytes % 1 %; Neutrophils % (M) 84 %; Nucleated Red Blood Cells 1 /100 WBC (0-0); Total Cells Counted 200; WBC 8.5 k/uL (3.8-10.6)
[2018-11-18 08:38] LABS: Polychromasia Present
[2018-11-18 09:23] LABS: Glucose,Whole Blood 156 mg/dL (75-99)
[2018-11-18] MEDS: INSULIN REGULAR 100 UNIT in SODIUM CHLORIDE 0.9% 100 ML IV SCH (10:25)
[2018-11-18] MEDS: CHLORHEXIDINE GLUCONATE 15 ML CUP MUCOUS MEM SCH ×2 (10:28→20:38)
[2018-11-18 10:35] LABS: Glucose,Whole Blood 170 mg/dL (75-99)
[2018-11-18] MEDS: HYDROmorphone 0.5 MG/0.5 ML SYRINGE IVP PRN (11:03)
[2018-11-18 11:23] LABS: Glucose,Whole Blood 168 mg/dL (75-99)
[2018-11-18] MEDS: ALBUTEROL NEBULIZED 2.5 MG/3 ML INHALATION PRN (11:54)
[2018-11-18 12:19] LABS: Glucose,Whole Blood 164 mg/dL (75-99)
[2018-11-18] MEDS ORDERED: LIDOCAINE 1% INJ 10MG/ML (20 ML MDV) SQ ONE (12:36)
[2018-11-18] MEDS: ERGOCALCIFEROL 50,000 UNIT CAP PO SCH (13:10)
[2018-11-18 13:19] LABS: Glucose,Whole Blood 146 mg/dL (75-99)
--- NOTE | 2018-11-18 13:19 | XR ---
EXAMINATION TYPE: XR chest 1V portable DATE OF EXAM: 11/18/2018 COMPARISON: Prior chest x-ray 11/18/2018 and earlier time HISTORY: Status post PICC line TECHNIQUE: Single frontal view of the chest is obtained. FINDINGS: Right-sided PICC line shows a cephalad course into the internal jugular vein. No other sig nificant interval change. IMPRESSION: PICC line as described
--- NOTE | 2018-11-18 13:21 | XR ---
EXAMINATION TYPE: XR chest 1V portable DATE OF EXAM: 11/18/2018 COMPARISON: Prior chest x-ray same dated earlier time HISTORY: PICC line reposition TECHNIQUE: Single frontal view of the chest is obtained. FINDINGS: There is been interval repositioning of PICC line, distal tip is coursing toward the regio n of the superior vena cava but may show coiled tip. Patient is again rotated. No other interval baumann ge. IMPRESSION: Interval repositioning of PICC line as described.
[2018-11-18 14:23] LABS: Glucose,Whole Blood 152 mg/dL (75-99)
--- NOTE | 2018-11-18 14:29 | IR ---
EXAMINATION TYPE: IR cvc insert >=5 years DATE OF EXAM: 11/18/2018 COMPARISON: NONE HISTORY: Needs long-term intravenous access for therapy, renal failure FINDINGS: Maximal barrier technique was utilized. The skin overlying the basilic vein was localized with ultrasound and noted to be compressible and patent by ultrasound. An ultrasound image was obtai daisy and submitted on patient's chart. Sterile technique utilized with the ultrasound machine. The ski n overlying was prepped and draped and Lidocaine used for local anesthesia. A skin carl was made wit h a scalpel. Access was gained to the vein under direct ultrasound guidance with a 21-gauge needle a nd a 0.018 inch wire was advanced. Access site was dilated with a peel-away sheath and the catheter tailored to length. Catheter advanced centrally and a post procedure chest x-ray verified placement with the tip overlying the right innominate vein. Catheter was fixed to the skin and a sterile dress ing placed. Hemostasis achieved and the catheter was aspirated and flushed with sterile saline. The patient remained in stable condition. IMPRESSION: STATUS POST ULTRASOUND GUIDED PICC LINE PLACEMENT, READY FOR USE. THIS PROCEDURE WAS PER FORMED BY THE UNDERSIGNED.
[2018-11-18 15:38] LABS: Calcium 6.7 mg/dL (8.4-10.2); Magnesium 2.5 mg/dL (1.6-2.3); Potassium 4.1 mmol/L (3.5-5.1)
[2018-11-18 15:44] LABS: Glucose,Whole Blood 164 mg/dL (75-99)
[2018-11-18 16:36] LABS: Anisocytosis Moderate; Basophils % (A) 0 %; Eosinophils # (A) 0.1 k/uL (0-0.7); Eosinophils % (A) 1 %; HCT 24.9 % (34.0-46.0); HGB 7.4 gm/dL (11.4-16.0); Hypochromasia Marked; Lymphocytes # (A) 0.8 k/uL (1.0-4.8); Lymphocytes % (A) 10 %; MCH 29.8 pg (25.0-35.0); MCHC 29.9 g/dL (31.0-37.0); MCV 99.7 fL (80.0-100.0); Macrocytosis Moderate; Mean Platelet Volume 8.7; Monocytes # (A) 0.4 k/uL (0-1.0); Monocytes % (A) 5 %; Neutrophils # (A) 6.6 k/uL (1.3-7.7); Neutrophils % (A) 83 %; Platelet Count 225 k/uL (150-450); Poikilocytosis Slight; RDW 21.1 % (11.5-15.5)
[2018-11-18] MEDS: DOPamine DRIP 800 MG in DEXTROSE/WATER 1 500ML.BAG IV SCH ×2 (16:59→18:20)
[2018-11-18] MEDS: NOREPINEPHRINE 16 MG in SODIUM CHLORIDE 0.9% 250 ML IV SCH (17:12)
--- NOTE | 2018-11-18 17:13 | P.PN ---
Subjective Progress Note Date: 11/18/18 Principal diagnosis: Acute renal failure, altered mental status likely related to acute renal failure , hypotension, severe sepsis, hypertension, A. fib with RVR Right lower extremity venous thrombosis, chronic intermittent thromboembolism, pulmonary hypertension, biventricular failure, acute on chronic systolic heart failure, acute on chronic renal failure is stage IV, small bilateral pleural effusion likely related to heart failure, morbid obesity, suspect sleep disorder breathing and sleep apnea 11/18/2018, patient seen eval examined during the rounds patient is arousable currently on 5 mics of levo fed remains on full ventilator support, CPAP was not attempted earlier today for unclear reasons, patient just has been noted to have episode of bradycardia heart rate dropped down into 40s, hemodynamics however remains stable with stable blood pressure, is being planned for hemodialysis later on today, labs reviewed medications reviewed, bradycardia episode appeared to be related to high-dose amiodarone which has been reduced from 400 twice a day to 200 twice a day with plans to hold the dose tonight we' ll recommend up parameters to hold amiodarone if heart rate remains less than 60 -70 continue other supportive care in the meantime we'll do a CPAP and pressure support 5 and 5 and try to get a blood gas if tolerated well will do a CPAP trial for an hour to 2 hours as tolerated 11/17/2018, patient seen eval reexamined during the rounds, patient had the episode of the irregular heartbeat and wide complex tachycardia while undergoing hemodialysis, the dialysis was terminated early yesterday, followed by an another episode while she was undergoing CPAP trial last night, CPAP trial was canceled at bedtime, patient remains on oral amiodarone, patient has been intermittently in and out of sinus rhythm as well as the atrial fibrillation currently patient is on well-controlled ventricular rate, she is sedated with the Ativan as needed Dilaudid is being given and started for pain control, patient is now off of propofol drip, patient is due for hemodialysis as per discussion with the renal services today, radiographic studies reviewed chest x-ray fairly stable, current vent settings include assist control rate of the 20 tidal volume 500 with 5 of PEEP and 40% oxygen had peaked or pressure in mid 30s, patient remains on insulin drip about 11 units, levo fed is down to 5 mics, the stool for C. difficile is negative, labs reviewed medications reviewed care plan discussed with the staff as well as the renal service at length critical care time spent 45 minutes 11/16/2018, patient seen eval examined during the rounds she is still under affect of propofol which has been discontinued and has been resumed though, patient has some loose stool which has been sent for C. difficile, hemodynamic status slightly improved patient is now on 4 mics of levo fed drip, ventilator setting remains as stable, arterial blood gas revealed suggestive of respiratory and metabolic acidosis, care plan discussed with the staff at length , will continue current supportive care and agree with hemodialysis later on today patient is being started on IV Solu-Medrol continue breathing treatment in addition will DC the propofol "patient on morphine and Ativan and set up a protocol for weaning will do CPAP and pressure support trial with 5 and 10 twice a day for one to 2 hours as tolerated blood patient to be more awake now, critical care time spent 35 minutes 11/15/2018, patient seen eval examined during the rounds clinically has been doing well awake and alert levo fed drip is down to 11 mics, ventilator setting remains stable, patient remains on heparin drip, currently patient is assist control rate of 20 breathing 20 tidal volume of 5oo, 40% oxygen and 5 of PEEP, the acral cyanosis essentially unchanged, patient has very minimal urine output , labs reviewed medications reviewed, we'll taper down the propofol drip with that and hemodynamics will improve also can initiate the weaning trial will see if patient can tolerate a trial for half an hour with CPAP 5 and pressure support of 5 11/14/2018, patient seen eval examined during the rounds clinically has been doing essentially unchanged status post hemodialysis 1.5 L of fluid has been removed, labs reviewed medications reviewed care plan discussed, the BUN/ creatinine improved to 44 and 4.9, liver function continued to improve 11/13/2018, patient seen and evaluated examined during the rounds, patient does withdraws to pain and physical stimuli, she is sedated with propofol drip, patient is on 25 mics of propofol if lower down becomes restless less anxious and agitated, patient has been remain on heparin drip tolerating very well no evidence of bleeding has been seen, the acral cyanosis in the upper extremity appears to have improved today however in the lower extremity remains unchanged , patient is also on bicarb drip U fed drip is down to 14 mics which is gradually being titrated patient is on insulin drip 2.5 units an hour for hyperglycemia, her peak airway pressures 33 her vent settings include assist control rate of 20 breathing 20 tidal volume 505 of PEEP and 40% oxygen, her sputum culture results and reports are reviewed no growth has been noted blood cultures no growth so far, patient was able to get the hemodialysis yesterday 1.5 L of fluid has been removed, labs from today reviewed white cell count continue to go down is 10,900 hemoglobin remained stable 8.5, patient is well anticoagulated with IV heparin, platelet count remains stable but however slow decline has as been noted which is being monitored observe his 135, patient is on tube feed tolerating very well slowly been escalated, BUN/creatinine has improved to 38 and 4.1, sodium is 132, LFT continued to improve AST/ALT now in to low thousands, IV amiodarone infusion has a stab patient is now on by mouth amiodarone no new episodes of A. fib RVR or V. tach has been noted, chest x-ray remains stable, critical care time spent 45 minutes 11/12/2018, patient seen eval examined during the rounds clinically patient is slightly improved in terms of laboratory data and hemodynamic support, patient remains sedated with propofol drip currently the dose is down to 40 mics, it is down to 20 mics patient continued to manifest ischemic changes in the toes as well as in the fingertips, bicarb drip is being given to counteract severe profound metabolic peripheral acidosis, she remains on full ventilator support with assist control of 20 tidal volume of 500, PEEP of 5, FiO2 down to 65%, oxygen saturation is 100% as checked with the right ear lobe, patient is now in sinus rhythm has been in A. fib but spontaneously converted patient has been amiodarone IV which is to be switched to oral aspirin cardiovascular services, current infusions include heparin drip tolerating very well no new bleeding has been seen along with levo fed drip 20 mics, propofol drip and bicarb drip, respiratory secretions are minimal, bowel sounds are hypoactive, no evidence of bleeding has been seen patient to be started on tube feed and dialysis is being planned later on today as well as per discussion with the renal services, answers are all negative so far, chest x-ray shows right lower lobe subsegmental atelectasis small effusion which is stable, leukocytosis improved today compared to yesterday, critical care time spent 35 minutes 11/11/2018, patient seen eval examined during the rounds clinically patient remains sedated and intubated, currently patient is on now full ventilator support she is on assist control rate of 20 breathing 20 tidal volume of 505 of PEEP and 75% oxygen, patient remains on heparin drip which is has been started this morning, also on propofol drip 45 mics, levo fed drip is off 24 mics, patient does have been noted to have as a spasm in the upper extremity as well as lower extremity with bluish discoloration, patient has being restarted on heparin drip to optimize the levo fed to contract severe profound metabolic acidosis, reviewed medications reviewed care plan discussed with the staff at length, patient will need a arterial line attempted but unable to cannulate the femoral artery, however able to access the femoral vein a triple-lumen catheter most of the infusions are incompatible with each other, dialysis is not performed due to unstable situation and condition, urine output remains very minimal, Keofeed to be started heparin to be continued monitor hemoglobin closely, critical care time spent 45 minutes including procedure, Patient was intubated last night due to severe tachypnea and tachycardia and intermittent runs of the V. tach along with atrial fibrillation, patient has been initiated amiodarone drip as well, given that ABG could not be obtained venous blood gases are being used 11/10/2018, patient seen eval reexamined during the rounds clinically patient has a not much change from baseline has been transfused 1 unit of packed RBC patient to has been more lethargic but readily arousable arterial blood gas couldn't be obtained a venous blood gas has been performed continued to show respiratory acidosis combined with metabolic acidosis, patient is due for dialysis today also been planned for EGD which has been performed some gastritis has been noted with some white patches suggestive of ischemic changes cannot be excluded for details please refer to EGD note, patient remains on 7 mics of levo fed which is to be titrated down as blood pressure has improved, we will do low-dose bicarb drip as well patient did receive a dose of desmopressin earlier this morning, patient remains on BiPAP 15/10 with the FiO2 to keep saturation over 90-94%, patient remain somnolent and lethargic but readily arousable respond appropriately when awake then goes right back to sleep , patient did receive a dose of Xanax 11/08/2018, patient seen eval reexamined during the rounds clinically patient remains marginal continue require vasopressors currently patient is on 19 mics of levo fed drip, during dialysis patient had episode of the tachyarrhythmia requiring amiodarone now patient after the initial IV boluses back to sinus rhythm, hemodynamic status is overall stable but marginal, urine output remains very low, patient did tolerate the hemodialysis fairly well earlier this morning except the findings as noted to more old bleeding noted it appears to be old blood, patient is currently on desmopressin drip, also has been infused with 1 unit of packed RBC, heparin drip has been on hold since yesterday, vascular surgery has been consulted for evaluation of IVC filter as patient has deep venous thrombosis right lower extremity, sugars continue to be run on the higher side remains on insulin drip, patient is on proton pump inhibitor IV with frequent monitoring with monitoring observation her hemoglobin him to keep hemoglobin over 7 no active bleeding however has been noted by GI services has been consulted as well for GI bleed, Estrace standpoint tolerating BiPAP very well currently patient is on BiPAP with 12 of BiPAP the and 5 EPAP respiratory rate is 22 her spontaneous tidal volumes ranging in mid 400 range, she is on 40 % oxygen, arterial blood gas couldn't be drawn, labs medications and radiographic studies reviewed culture results are reviewed as well no positive cultures been seen patient remains on Zosyn, critical care time spent 35 minutes 11/07/2018, patient seen and evaluated examined during the rounds this morning critical care time spent 40 minutes, patient has removed to the ICU from medical floor as she was hypotensive with poor urine output in addition patient has been more somnolent and lethargic she did have receive a dose of Xanax on the floor, after arrival in ICU patient remains very hypotensive with tachycardia was given multiple fluid boluses to improve the hemodynamics however eventually starting the levo fed drip, patient does have 2 peripheral IVs one of them is not functioning very well, worsening of renal function has been noted the renal services planning to do hemodialysis, patient has very poor peripheral arterial disease unable to obtain ABG in addition to that very poor peripheral pulses are present, patient is arousable opens eyes follow simple commands but remains very anxious and agitated, patient eventually went up to 25 mics of levo fed drip with a systolic blood pressure ranging about 100 210, urine output has been very minimal, given that the lack of ability of IV axis will proceed with a central line however patient needed dialysis port as well will do a trilysis catheter (hemodialysis catheter with extra port), care plan discussed with the vascular surgery as well and renal services planning to do hemodialysis later on today provided hemodynamics remain stable, due to anticipated profound metabolic acidosis patient has been started on bicarb drip , patient is being kept on IV Zosyn heparin has been on hold due to procedures as well as elevated PTT labs reviewed medications reviewed radiographic studies reviewed as well 11/06/2018, patient seen eval examined during the rounds clinically patient has a been doing relatively better in terms of shortness of breath and swelling of the lower extremity patient is currently on room air however renal function continued to go up slightly and Lasix dose is being adjusted by renal service labs reviewed medications reviewed for now we'll continue IV heparin hopefully next 24-48 hours we'll switch it to oral anticoagulants 11/05/2018, patient seen romain reexamined during the rounds clinically has been doing relatively better in terms of breathing leg swelling the lower extremity is slightly better patient is on anticoagulation with IV heparin for DVT thrombosis of lower extremity on the right side also probable pulmonary embolism as well Patient presented to the hospital with worsening dyspnea and edema. Patient states she's been getting progressively short of breath over the last 1 week. She initially thought it was asthma but the symptoms did not improve with nebulized treatments. She also noticed edema in her legs. She states she does not take any diuretics at home. She admits to good urine output. No hematuria or dysuria. No vomiting or diarrhea. Oral intake has been fair. Denies use of NSAIDs. Chest CT revealed bilateral pleural effusions. Echocardiogram revealed ejection fraction of 35-40% with severe pulmonary hypertension. Currently maintained on Lasix 40 mg IV twice daily. She has been voiding. No fever or chills. Her duplex ultrasound of the lower extremity came back positive for DVT patient is now being started on IV heparin Objective - Vital Signs Vital signs: Vital Signs Temp 98.2 F 11/18/18 08:00 Pulse 70 11/18/18 12:05 Resp 22 11/18/18 12:00 BP 123/60 11/18/18 11:00 Pulse Ox 99 11/18/18 12:00 Intake & Output 11/17/18 11/18/18 11/18/18 18:59 06:59 18:59 Intake Total 343.553 8164.673 502.012 Output Total 7 12 5 Balance 661.426 7173.673 497.012 Weight 131.6 kg 132.4 kg Intake: IV 220 290 55 Piperacillin-Tazobactam 3 100 100 .375 gm In Sodium Chloride 0.9% 100 ml @ 25 mls/hr IVPB Q12HR [facility] Rx #:[id number] Sodium Chloride 0.9% 1, 120 190 55 000 ml @ 10 mls/hr IV . Q24H [facility] Rx#:[id number] Intake, IV Titration 173.299 384.673 292.012 Amount Calcium Gluconate 1,000 100 mg In Sodium Chloride 0.9 % 100 ml @ 100 mls/hr IVPB ONCE ONE Rx#: [id number] Heparin Sod,Pork in 0.45% 47.961 250 NaCl 25,000 unit In 0.45 % NaCl 1 250ml.bag @ 8.45 UNITS/KG/HR 9.97 mls/hr IV .Q24H [facility] Rx#: [id number] Insulin Regular 100 unit 38.178 36.192 41.243 In Sodium Chloride 0.9% 100 ml @ Per Protocol IV .Q0M [facility] Rx#:[id number] Norepinephrine 16 mg In 87.160 98.481 150.769 Sodium Chloride 0.9% 250 ml @ Titrate IV .Q0M [facility] Rx#:[id number] Oral 0 Tube Feeding 341 434 155 Other 90 Output: Urine 5 10 2 Stool 2 2 3 Other: Voiding Method Indwelling Catheter Indwelling Catheter Indwelling Catheter # Voids 0 0 - Exam - Constitutional General appearance: disheveled, mild distress, morbidly obese, intermittently anxious and agitated now relatively more comfortable on full ventilator support - Neck Neck: normal ROM Carotids: bilateral: upstroke normal Thyroid: bilateral: normal size - Respiratory Respiratory: bilateral: CTA, few basal rales, negative: diminished, dullness - Cardiovascular Rhythm: regular Heart sounds: normal: S1, S2 - Integumentary Integumentary: normal turgor Abdomen soft - Neurologic Neurologic: CNII-XII intact - Musculoskeletal Musculoskeletal: Moving all 4 extremity good tone in all 4 extremity, peripheral acral cyanosis in the toes and the fingertips noted as dictated above , the cyanosis in the fingertips have appeared to improve - Psychiatric Psychiatric: A&O x's 2, in appropriate affect, at times become anxious and agitated and combative - Labs CBC & Chem 7: 11/18/18 14:44 11/18/18 14:44 Labs: Abnormal Lab Results - Last 24 Hours (Table) 11/17/18 11/17/18 11/17/18 Range/Units 17:10 17:52 19:05 RBC (3.80-5.40) m/uL Hgb (11.4-16.0) gm/dL Hct (34.0-46.0) % MCHC (31.0-37.0) g/dL RDW (11.5-15.5) % Lymphocytes # (1.0-4.8) k/uL Lymphocytes # (Manual) (1.0-4.8) k/uL Myelocytes # (Manual) (0) k/uL Nucleated RBCs (0-0) /100 WBC APTT (22.0-30.0) sec ABG pH (7.35-7.45) ABG pCO2 (35-45) mmHg ABG Total CO2 (19-24) mmol/L ABG O2 Saturation (94-97) % Sodium (137-145) mmol/L BUN (7-17) mg/dL Creatinine (0.52-1.04) mg/dL Glucose (74-99) mg/dL POC Glucose (mg/dL) 138 H 162 H 202 H (75-99) mg/dL Calcium (8.4-10.2) mg/dL Ionized Calcium Nasreen (4.5-5.3) mg/dL Phosphorus (2.5-4.5) mg/dL Magnesium (1.6-2.3) mg/dL 11/17/18 11/17/18 11/17/18 Range/Units 19:54 21:31 22:04 RBC (3.80-5.40) m/uL Hgb (11.4-16.0) gm/dL Hct (34.0-46.0) % MCHC (31.0-37.0) g/dL RDW (11.5-15.5) % Lymphocytes # (1.0-4.8) k/uL Lymphocytes # (Manual) (1.0-4.8) k/uL Myelocytes # (Manual) (0) k/uL Nucleated RBCs (0-0) /100 WBC APTT (22.0-30.0) sec ABG pH (7.35-7.45) ABG pCO2 (35-45) mmHg ABG Total CO2 (19-24) mmol/L ABG O2 Saturation (94-97) % Sodium (137-145) mmol/L BUN (7-17) mg/dL Creatinine (0.52-1.04) mg/dL Glucose (74-99) mg/dL POC Glucose (mg/dL) 211 H 188 H 170 H (75-99) mg/dL Calcium (8.4-10.2) mg/dL Ionized Calcium Nasreen (4.5-5.3) mg/dL Phosphorus (2.5-4.5) mg/dL Magnesium (1.6-2.3) mg/dL 11/18/18 11/18/18 11/18/18 Range/Units 00:05 02:12 04:06 RBC (3.80-5.40) m/uL Hgb (11.4-16.0) gm/dL Hct (34.0-46.0) % MCHC (31.0-37.0) g/dL RDW (11.5-15.5) % Lymphocytes # (1.0-4.8) k/uL Lymphocytes # (Manual) (1.0-4.8) k/uL Myelocytes # (Manual) (0) k/uL Nucleated RBCs (0-0) /100 WBC APTT (22.0-30.0) sec ABG pH (7.35-7.45) ABG pCO2 (35-45) mmHg ABG Total CO2 (19-24) mmol/L ABG O2 Saturation (94-97) % Sodium (137-145) mmol/L BUN (7-17) mg/dL Creatinine (0.52-1.04) mg/dL Glucose (74-99) mg/dL POC Glucose (mg/dL) 144 H 169 H 140 H (75-99) mg/dL Calcium (8.4-10.2) mg/dL Ionized Calcium Nasreen (4.5-5.3) mg/dL Phosphorus (2.5-4.5) mg/dL Magnesium (1.6-2.3) mg/dL 11/18/18 11/18/18 11/18/18 Range/Units 04:56 05:35 05:36 RBC (3.80-5.40) m/uL Hgb (11.4-16.0) gm/dL Hct (34.0-46.0) % MCHC (31.0-37.0) g/dL RDW (11.5-15.5) % Lymphocytes # (1.0-4.8) k/uL Lymphocytes # (Manual) (1.0-4.8) k/uL Myelocytes # (Manual) (0) k/uL Nucleated RBCs (0-0) /100 WBC APTT (22.0-30.0) sec ABG pH 7.33 L (7.35-7.45) ABG pCO2 47 H (35-45) mmHg ABG Total CO2 26 H (19-24) mmol/L ABG O2 Saturation 97.6 H (94-97) % Sodium 134 L (137-145) mmol/L BUN 50 H (7-17) mg/dL Creatinine 4.69 H (0.52-1.04) mg/dL Glucose 155 H (74-99) mg/dL POC Glucose (mg/dL) 155 H (75-99) mg/dL Calcium 6.4 L* (8.4-10.2) mg/dL Ionized Calcium Nasreen (4.5-5.3) mg/dL Phosphorus (2.5-4.5) mg/dL Magnesium 2.4 H (1.6-2.3) mg/dL 11/18/18 11/18/18 11/18/18 Range/Units 05:36 05:36 07:03 RBC 2.58 L (3.80-5.40) m/uL Hgb 7.7 L (11.4-16.0) gm/dL Hct 25.6 L (34.0-46.0) % MCHC 30.0 L (31.0-37.0) g/dL RDW 21.3 H (11.5-15.5) % Lymphocytes # (1.0-4.8) k/uL Lymphocytes # (Manual) 0.85 L (1.0-4.8) k/uL Myelocytes # (Manual) 0.09 H (0) k/uL Nucleated RBCs 1 H (0-0) /100 WBC APTT 49.6 H (22.0-30.0) sec ABG pH (7.35-7.45) ABG pCO2 (35-45) mmHg ABG Total CO2 (19-24) mmol/L ABG O2 Saturation (94-97) % Sodium (137-145) mmol/L BUN (7-17) mg/dL Creatinine (0.52-1.04) mg/dL Glucose (74-99) mg/dL POC Glucose (mg/dL) 174 H (75-99) mg/dL Calcium (8.4-10.2) mg/dL Ionized Calcium Nasreen (4.5-5.3) mg/dL Phosphorus (2.5-4.5) mg/dL Magnesium (1.6-2.3) mg/dL 11/18/18 11/18/18 11/18/18 Range/Units 08:12 09:11 10:24 RBC (3.80-5.40) m/uL Hgb (11.4-16.0) gm/dL Hct (34.0-46.0) % MCHC (31.0-37.0) g/dL RDW (11.5-15.5) % Lymphocytes # (1.0-4.8) k/uL Lymphocytes # (Manual) (1.0-4.8) k/uL Myelocytes # (Manual) (0) k/uL Nucleated RBCs (0-0) /100 WBC APTT (22.0-30.0) sec ABG pH (7.35-7.45) ABG pCO2 (35-45) mmHg ABG Total CO2 (19-24) mmol/L ABG O2 Saturation (94-97) % Sodium (137-145) mmol/L BUN (7-17) mg/dL Creatinine (0.52-1.04) mg/dL Glucose (74-99) mg/dL POC Glucose (mg/dL) 163 H 156 H 170 H (75-99) mg/dL Calcium (8.4-10.2) mg/dL Ionized Calcium Nasreen (4.5-5.3) mg/dL Phosphorus (2.5-4.5) mg/dL Magnesium (1.6-2.3) mg/dL 11/18/18 11/18/18 11/18/18 Range/Units 11:12 12:07 13:08 RBC (3.80-5.40) m/uL Hgb (11.4-16.0) gm/dL Hct (34.0-46.0) % MCHC (31.0-37.0) g/dL RDW (11.5-15.5) % Lymphocytes # (1.0-4.8) k/uL Lymphocytes # (Manual) (1.0-4.8) k/uL Myelocytes # (Manual) (0) k/uL Nucleated RBCs (0-0) /100 WBC APTT (22.0-30.0) sec ABG pH (7.35-7.45) ABG pCO2 (35-45) mmHg ABG Total CO2 (19-24) mmol/L ABG O2 Saturation (94-97) % Sodium (137-145) mmol/L BUN (7-17) mg/dL Creatinine (0.52-1.04) mg/dL Glucose (74-99) mg/dL POC Glucose (mg/dL) 168 H 164 H 146 H (75-99) mg/dL Calcium (8.4-10.2) mg/dL Ionized Calcium Nasreen (4.5-5.3) mg/dL Phosphorus (2.5-4.5) mg/dL Magnesium (1.6-2.3) mg/dL 11/18/18 11/18/18 11/18/18 Range/Units 14:11 14:44 14:44 RBC 2.50 L (3.80-5.40) m/uL Hgb 7.4 L (11.4-16.0) gm/dL Hct 24.9 L (34.0-46.0) % MCHC 29.9 L (31.0-37.0) g/dL RDW 21.1 H (11.5-15.5) % Lymphocytes # 0.8 L (1.0-4.8) k/uL Lymphocytes # (Manual) (1.0-4.8) k/uL Myelocytes # (Manual) (0) k/uL Nucleated RBCs (0-0) /100 WBC APTT (22.0-30.0) sec ABG pH (7.35-7.45) ABG pCO2 (35-45) mmHg ABG Total CO2 (19-24) mmol/L ABG O2 Saturation (94-97) % Sodium 132 L (137-145) mmol/L BUN 55 H (7-17) mg/dL Creatinine 5.26 H (0.52-1.04) mg/dL Glucose 150 H (74-99) mg/dL POC Glucose (mg/dL) 152 H (75-99) mg/dL Calcium 6.7 L (8.4-10.2) mg/dL Ionized Calcium Nasreen (4.5-5.3) mg/dL Phosphorus 6.0 H (2.5-4.5) mg/dL Magnesium 2.5 H (1.6-2.3) mg/dL 11/18/18 11/18/18 Range/Units 15:31 16:10 RBC (3.80-5.40) m/uL Hgb (11.4-16.0) gm/dL Hct (34.0-46.0) % MCHC (31.0-37.0) g/dL RDW (11.5-15.5) % Lymphocytes # (1.0-4.8) k/uL Lymphocytes # (Manual) (1.0-4.8) k/uL Myelocytes # (Manual) (0) k/uL Nucleated RBCs (0-0) /100 WBC APTT (22.0-30.0) sec ABG pH (7.35-7.45) ABG pCO2 (35-45) mmHg ABG Total CO2 (19-24) mmol/L ABG O2 Saturation (94-97) % Sodium (137-145) mmol/L BUN (7-17) mg/dL Creatinine (0.52-1.04) mg/dL Glucose (74-99) mg/dL POC Glucose (mg/dL) 164 H (75-99) mg/dL Calcium (8.4-10.2) mg/dL Ionized Calcium Nasreen 4.0 L (4.5-5.3) mg/dL Phosphorus (2.5-4.5) mg/dL Magnesium (1.6-2.3) mg/dL Assessment and Plan Assessment: Asymptomatic bradycardia likely related to amiodarone, the dose and duration amiodarone is being adjusted as noted above Acute on chronic renal failure and anuric Loose stool diarrhea new-onset stool has been sent for C. difficile is negative will monitor observe repeat test, the loose stool could be associated to feed or antibiotic associated with discussed with infectious disease services if Zosyn can be discontinued Runs of the atrial fibrillation and tachyarrhythmia and wide complex tachycardia , now patient is back in sinus rhythm, amiodarone has been oral Acute respiratory failure multifactorial due to profound metabolic acidosis along with arrhythmia and congestive heart failure likely biventricular failure and pulmonary embolism Severe sepsis on broad-spectrum antibiotics, possible right lower lobe pneumonia cannot be excluded less likely aspiration related as patient has a good gag flex GI bleed of unclear source status post blood transfusion, hemoglobin has been stable now no evidence of active bleeding has been seen on IV heparin Altered mental status and metabolic encephalopathy likely multifactorial related to renal failure Deep venous thrombosis of right lower extremity and possible pulmonary embolism 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 Small bilateral pleural effusion more so on the right side compared to left side Acute blood loss anemia Non-STEMI Plan: Taper sedation initiated weaning trial, protocol has been advised Patient remains negative for C. difficile Anticoagulation currently is being continued in the form of IV heparin, tolerating it fairly well We will defer placement of IVC filter to vascular surgery Status post PICC line by IR Continue daily hemodialysis as tolerated Blood transfusion as needed keep hemoglobin over 7 Optimize therapy for heart failure Monitor renal functions closely Further recommendations pending plan of care as per clinical response of the patient Bicarb drip low-dose to be reinitiated due to vasa spasm and cyanotic changes into the toes Taper levo fed drip as tolerated We'll continue to taper down the pressors as tolerated continue bicarb drip Continue tube feed Once patient is more hemodynamically stable reinitiated weaning as tolerated Critical care time spent 35 minutes Time with Patient: Greater than 30
[2018-11-18 17:19] LABS: Glucose,Whole Blood 165 mg/dL (75-99)
[2018-11-18 19:04] LABS: Glucose,Whole Blood 186 mg/dL (75-99)
[2018-11-18 20:03] LABS: Glucose,Whole Blood 130 mg/dL (75-99)
[2018-11-18] MEDS: MONTELUKAST 10 MG TAB PO SCH (20:38)
[2018-11-18] MEDS: PRAVASTATIN SODIUM 20 MG TAB PO SCH (20:38)
[2018-11-18 21:07] LABS: Glucose,Whole Blood 137 mg/dL (75-99)
[2018-11-18 22:06] LABS: Glucose,Whole Blood 159 mg/dL (75-99)
[2018-11-18 23:06] LABS: Glucose,Whole Blood 184 mg/dL (75-99)
--- NOTE | 2018-11-19 00:09 | PN ---
PROGRESS NOTE DATE OF SERVICE: 11/18/2018. REASON FOR FOLLOWUP: Pneumonia, antibiotic-associated diarrhea. INTERVAL HISTORY: The patient is currently afebrile. The patient is hemodynamically stable. Not on any pressor support. Undergoing weaning perimeters. The patient's diarrhea is improving. Tolerating tube feeds. PHYSICAL EXAMINATION: Blood pressure 113/68 with a pulse of 99, temperature 98, he is 92% on 4 L 40% FiO2. GENERAL DESCRIPTION: An elderly female lying in bed in no distress. RESPIRATORY SYSTEM: Unlabored breathing with decreased breath sounds at the bases. HEART: S1, S2. Regular rate and rhythm. ABDOMEN: Soft. LABS: Hemoglobin 7.4, white count 8.0. BUN of 6, creatinine 5.26. DIAGNOSTIC IMPRESSION AND PLAN: 1. Patient with acute respiratory failure which is likely multifactorial in this patient who did have a component of pneumonia which has been adequately treated. The patient is currently off antibiotic therapy. 2. Patient with diarrhea. Antibiotic discontinued yesterday. Lomotil has been added. Will could once her clinical course colitis. Family at bedside, questions answered. MMODL / IJN: [id number] /
[2018-11-19 00:11] LABS: Glucose,Whole Blood 190 mg/dL (75-99)
[2018-11-19 01:07] LABS: Glucose,Whole Blood 111 mg/dL (75-99)
[2018-11-19 02:07] LABS: Glucose,Whole Blood 176 mg/dL (75-99)
[2018-11-19] MEDS: HYDROmorphone 0.5 MG/0.5 ML SYRINGE IVP PRN ×4 (02:29→21:41)
[2018-11-19 03:33] LABS: Glucose,Whole Blood 195 mg/dL (75-99)
[2018-11-19 04:05] LABS: ABG HCO3 25 mmol/L (21-25); ABG Oxygen Saturation 95.1 % (94-97); ABG PCO2 49 mmHg (35-45); ABG PH 7.32 (7.35-7.45); ABG PO2 76 mmHg (83-108); ABG TCO2 27 mmol/L (19-24)
[2018-11-19 04:05] LABS: Glucose,Whole Blood 190 mg/dL (75-99)
[2018-11-19 04:50] LABS: Anisocytosis Moderate; Basophils % (A) 0 %; Eosinophils % (A) 0 %; HCT 23.7 % (34.0-46.0); HGB 7.3 gm/dL (11.4-16.0); Hypochromasia Marked; Lymphocytes # (A) 0.8 k/uL (1.0-4.8); Lymphocytes % (A) 9 %; MCH 30.4 pg (25.0-35.0); MCHC 30.9 g/dL (31.0-37.0); MCV 98.6 fL (80.0-100.0); Macrocytosis Moderate; Mean Platelet Volume 7.5; Monocytes # (A) 0.3 k/uL (0-1.0); Monocytes % (A) 4 %; Neutrophils # (A) 7.6 k/uL (1.3-7.7); Neutrophils % (A) 86 %; Platelet Count 235 k/uL (150-450); Poikilocytosis Moderate; RBC 2.41 m/uL (3.80-5.40); RDW 22.1 % (11.5-15.5); WBC 8.9 k/uL (3.8-10.6)
[2018-11-19 05:05] LABS: Calcium 7.5 mg/dL (8.4-10.2); Magnesium 2.4 mg/dL (1.6-2.3); Potassium 3.3 mmol/L (3.5-5.1)
[2018-11-19 05:08] LABS: Ionized Calcium 4.2 mg/dL (4.5-5.3)
[2018-11-19 05:21] LABS: Glucose,Whole Blood 139 mg/dL (75-99)
[2018-11-19] MEDS: HEPARIN SOD,PORK IN 0.45% NACL 25,000 UNIT in 0.45% NACL 1 250ML.BAG IV SCH ×2 (05:39→21:45)
[2018-11-19] MEDS: SODIUM CHLORIDE 0.9% 1,000 ML IV SCH (05:46)
[2018-11-19] MEDS ORDERED: POTASSIUM BICARBONATE/CIT AC 20 MEQ TABLET.EFF NG-TUBE SCH (06:00)
[2018-11-19 06:08] LABS: Glucose,Whole Blood 170 mg/dL (75-99)
[2018-11-19 07:03] LABS: Glucose,Whole Blood 196 mg/dL (75-99)
--- NOTE | 2018-11-19 07:10 | PN ---
PROGRESS NOTE SUBJECTIVE: 58-year-old white female who appears to be improving from medical standpoint slowly on 5 mics of Levophed on full vent support. CPAP was not attempted for unclear reasons due to bradycardia into the 40s. Dialysis will be done today. Possible cut back on amiodarone due to hypotension and bradycardia. Try to wean off the vent in next 24 to 48 hours. Vital signs reviewed. CARDIOVASCULAR: S1, S2. LUNGS: Clear. GI: Soft. HEMATOLOGY: Negative Homans. She is resting comfortably on the ventilator. Labs and bilingual instructor notes reviewed. ASSESSMENT: 1. Systolic congestive heart failure. 2. Pulmonary embolism. 3. Deep venous thrombosis. 4. Chronic obstructive pulmonary disease exacerbation. 5. Acute tubular necrosis. 6. Acute renal failure. 7. Insulin-dependent diabetes mellitus. 8. Hyponatremia. Continue taper sedation. Try to wean off vent if we can. IV heparin for anticoagulation. Possible IVC filter for vascular surgery. Watch for GI bleed. Continue daily hemodialysis. Transfuse for hemoglobin under 7. ICU time 30 minutes. MMODL / IJN: [id number] /
[2018-11-19] MEDS: ALBUTEROL NEBULIZED 2.5 MG/3 ML INHALATION PRN ×3 (07:16→15:43)
--- NOTE | 2018-11-19 07:22 | XR ---
EXAMINATION TYPE: XR chest 1V portable DATE OF EXAM: 11/19/2018 CLINICAL HISTORY: Difficulty breathing progress study. TECHNIQUE: Single AP portable semiupright view of the chest is obtained. COMPARISON: Chest x-ray from one day earlier and older studies. FINDINGS: An endotracheal tube, orogastric tube, right internal jugular central venous catheter, and right-sided PICC line are all stable in appearance. Overlying sternal wires are redemonstrated. Ther e is stable mild cardiomegaly. There is background chronic parenchymal change with improving bilatera l opacities more prominent in the lower lungs. Osseous structures are intact. Surgical clips right river prahilar level and medial basilar level are noted. IMPRESSION: Persistent mild cardiomegaly with improving bilateral edema and/or infiltrates, there is persistent right greater than left bibasilar acute atelectasis and/or infiltrate with suspected small right pleural effusion noted.
[2018-11-19] MEDS: FERROUS SULFATE ORAL ELIXIR 300 MG/5 ML CUP NG-TUBE SCH (08:44)
[2018-11-19] MEDS: CHLORHEXIDINE GLUCONATE 15 ML CUP MUCOUS MEM SCH ×2 (08:44→20:11)
[2018-11-19] MEDS: AMIODARONE 200 MG TAB PO SCH ×2 (08:44→20:10)
[2018-11-19] MEDS: CALCIUM ACETATE 667 MG CAP PO SCH ×3 (08:45→17:06)
[2018-11-19] MEDS: methylPREDNISolone SOD SUCCI 40 MG/ML 1 ML VIAL IV SCH ×2 (08:45→20:11)
[2018-11-19] MEDS: ASPIRIN 81 MG PO SCH (08:45)
[2018-11-19 08:48] LABS: Glucose,Whole Blood 200 mg/dL (75-99)
[2018-11-19] MEDS: PANTOPRAZOLE 40 MG/10 ML VIAL IVP SCH ×2 (08:53→20:11)
[2018-11-19] MEDS: NICOTINE 21MG/24HR PATCH TRANSDERM SCH (08:54)
--- NOTE | 2018-11-19 10:49 | P.PN ---
Subjective Progress Note Date: 11/19/18 Seen and examined for the follow-up of acute kidney injury. Still oliguric. Still on ventilator with 40% FiO2. Also on 4 mics of Levophed. Objective - Vital Signs Vital signs: Vital Signs Temp 98.2 F 11/19/18 04:00 Pulse 113 H 11/19/18 07:59 Resp 20 11/19/18 07:00 BP 101/77 11/19/18 07:00 Pulse Ox 97 11/19/18 07:00 Intake & Output 11/18/18 11/19/18 11/19/18 18:59 06:59 18:59 Intake Total 905.607 7653.035 46 Output Total 204 10 0 Balance 908.493 9414.035 46 Weight 126.7 kg Intake: IV 115 130 15 Sodium Chloride 0.9% 1, 115 130 15 000 ml @ 10 mls/hr IV . Q24H [facility] Rx#:[id number] Intake, IV Titration 318.509 394.035 Amount Calcium Gluconate 1,000 100 mg In Sodium Chloride 0.9 % 100 ml @ 100 mls/hr IVPB ONCE ONE Rx#: [id number] DOPamine DRIP 800 mg In 13.651 83.970 Dextrose/Water 1 500ml. bag @ 2 MCG/KG/MIN 9.93 mls/hr IV .Q24H [facility] Rx#: [id number] Heparin Sod,Pork in 0.45% 250 NaCl 25,000 unit In 0.45 % NaCl 1 250ml.bag @ 8.45 UNITS/KG/HR 9.97 mls/hr IV .Q24H [facility] Rx#: [id number] Insulin Regular 100 unit 46.445 30.821 In Sodium Chloride 0.9% 100 ml @ Per Protocol IV .Q0M [facility] Rx#:[id number] Norepinephrine 16 mg In 158.413 29.244 Sodium Chloride 0.9% 250 ml @ Titrate IV .Q0M [facility] Rx#:[id number] Tube Feeding 496 527 31 Other 90 Output: Urine 3 10 0 Stool 201 Other: Voiding Method Indwelling Catheter Indwelling Catheter - Exam No acute distress on ventilator S1-S2 heard Basal crackles Edema. - Labs CBC & Chem 7: 11/19/18 04:38 11/19/18 04:38 Labs: Abnormal Lab Results - Last 24 Hours (Table) 11/18/18 11/18/18 11/18/18 Range/Units 11:12 12:07 13:08 RBC (3.80-5.40) m/uL Hgb (11.4-16.0) gm/dL Hct (34.0-46.0) % MCHC (31.0-37.0) g/dL RDW (11.5-15.5) % Lymphocytes # (1.0-4.8) k/uL APTT (22.0-30.0) sec ABG pH (7.35-7.45) ABG pCO2 (35-45) mmHg ABG pO2 (83-108) mmHg ABG Total CO2 (19-24) mmol/L Sodium (137-145) mmol/L Potassium (3.5-5.1) mmol/L BUN (7-17) mg/dL Creatinine (0.52-1.04) mg/dL Glucose (74-99) mg/dL POC Glucose (mg/dL) 168 H 164 H 146 H (75-99) mg/dL Calcium (8.4-10.2) mg/dL Ionized Calcium Nasreen (4.5-5.3) mg/dL Phosphorus (2.5-4.5) mg/dL Magnesium (1.6-2.3) mg/dL 11/18/18 11/18/18 11/18/18 Range/Units 14:11 14:44 14:44 RBC 2.50 L (3.80-5.40) m/uL Hgb 7.4 L (11.4-16.0) gm/dL Hct 24.9 L (34.0-46.0) % MCHC 29.9 L (31.0-37.0) g/dL RDW 21.1 H (11.5-15.5) % Lymphocytes # 0.8 L (1.0-4.8) k/uL APTT (22.0-30.0) sec ABG pH (7.35-7.45) ABG pCO2 (35-45) mmHg ABG pO2 (83-108) mmHg ABG Total CO2 (19-24) mmol/L Sodium 132 L (137-145) mmol/L Potassium (3.5-5.1) mmol/L BUN 55 H (7-17) mg/dL Creatinine 5.26 H (0.52-1.04) mg/dL Glucose 150 H (74-99) mg/dL POC Glucose (mg/dL) 152 H (75-99) mg/dL Calcium 6.7 L (8.4-10.2) mg/dL Ionized Calcium Nasreen (4.5-5.3) mg/dL Phosphorus 6.0 H (2.5-4.5) mg/dL Magnesium 2.5 H (1.6-2.3) mg/dL 11/18/18 11/18/18 11/18/18 Range/Units 15:31 16:10 17:08 RBC (3.80-5.40) m/uL Hgb (11.4-16.0) gm/dL Hct (34.0-46.0) % MCHC (31.0-37.0) g/dL RDW (11.5-15.5) % Lymphocytes # (1.0-4.8) k/uL APTT (22.0-30.0) sec ABG pH (7.35-7.45) ABG pCO2 (35-45) mmHg ABG pO2 (83-108) mmHg ABG Total CO2 (19-24) mmol/L Sodium (137-145) mmol/L Potassium (3.5-5.1) mmol/L BUN (7-17) mg/dL Creatinine (0.52-1.04) mg/dL Glucose (74-99) mg/dL POC Glucose (mg/dL) 164 H 165 H (75-99) mg/dL Calcium (8.4-10.2) mg/dL Ionized Calcium Nasreen 4.0 L (4.5-5.3) mg/dL Phosphorus (2.5-4.5) mg/dL Magnesium (1.6-2.3) mg/dL 11/18/18 11/18/18 11/18/18 Range/Units 18:52 19:52 20:55 RBC (3.80-5.40) m/uL Hgb (11.4-16.0) gm/dL Hct (34.0-46.0) % MCHC (31.0-37.0) g/dL RDW (11.5-15.5) % Lymphocytes # (1.0-4.8) k/uL APTT (22.0-30.0) sec ABG pH (7.35-7.45) ABG pCO2 (35-45) mmHg ABG pO2 (83-108) mmHg ABG Total CO2 (19-24) mmol/L Sodium (137-145) mmol/L Potassium (3.5-5.1) mmol/L BUN (7-17) mg/dL Creatinine (0.52-1.04) mg/dL Glucose (74-99) mg/dL POC Glucose (mg/dL) 186 H 130 H 137 H (75-99) mg/dL Calcium (8.4-10.2) mg/dL Ionized Calcium Nasreen (4.5-5.3) mg/dL Phosphorus (2.5-4.5) mg/dL Magnesium (1.6-2.3) mg/dL 11/18/18 11/18/18 11/19/18 Range/Units 21:55 22:53 00:00 RBC (3.80-5.40) m/uL Hgb (11.4-16.0) gm/dL Hct (34.0-46.0) % MCHC (31.0-37.0) g/dL RDW (11.5-15.5) % Lymphocytes # (1.0-4.8) k/uL APTT (22.0-30.0) sec ABG pH (7.35-7.45) ABG pCO2 (35-45) mmHg ABG pO2 (83-108) mmHg ABG Total CO2 (19-24) mmol/L Sodium (137-145) mmol/L Potassium (3.5-5.1) mmol/L BUN (7-17) mg/dL Creatinine (0.52-1.04) mg/dL Glucose (74-99) mg/dL POC Glucose (mg/dL) 159 H 184 H 190 H (75-99) mg/dL Calcium (8.4-10.2) mg/dL Ionized Calcium Nasreen (4.5-5.3) mg/dL Phosphorus (2.5-4.5) mg/dL Magnesium (1.6-2.3) mg/dL 11/19/18 11/19/18 11/19/18 Range/Units 00:56 01:57 03:21 RBC (3.80-5.40) m/uL Hgb (11.4-16.0) gm/dL Hct (34.0-46.0) % MCHC (31.0-37.0) g/dL RDW (11.5-15.5) % Lymphocytes # (1.0-4.8) k/uL APTT (22.0-30.0) sec ABG pH (7.35-7.45) ABG pCO2 (35-45) mmHg ABG pO2 (83-108) mmHg ABG Total CO2 (19-24) mmol/L Sodium (137-145) mmol/L Potassium (3.5-5.1) mmol/L BUN (7-17) mg/dL Creatinine (0.52-1.04) mg/dL Glucose (74-99) mg/dL POC Glucose (mg/dL) 111 H 176 H 195 H (75-99) mg/dL Calcium (8.4-10.2) mg/dL Ionized Calcium Nasreen (4.5-5.3) mg/dL Phosphorus (2.5-4.5) mg/dL Magnesium (1.6-2.3) mg/dL 11/19/18 11/19/18 11/19/18 Range/Units 03:54 04:03 04:38 RBC (3.80-5.40) m/uL Hgb (11.4-16.0) gm/dL Hct (34.0-46.0) % MCHC (31.0-37.0) g/dL RDW (11.5-15.5) % Lymphocytes # (1.0-4.8) k/uL APTT (22.0-30.0) sec ABG pH 7.32 L (7.35-7.45) ABG pCO2 49 H (35-45) mmHg ABG pO2 76 L (83-108) mmHg ABG Total CO2 27 H (19-24) mmol/L Sodium 133 L (137-145) mmol/L Potassium 3.3 L (3.5-5.1) mmol/L BUN 46 H (7-17) mg/dL Creatinine 4.10 H (0.52-1.04) mg/dL Glucose 180 H (74-99) mg/dL POC Glucose (mg/dL) 190 H (75-99) mg/dL Calcium 7.5 L (8.4-10.2) mg/dL Ionized Calcium Nasreen 4.2 L (4.5-5.3) mg/dL Phosphorus (2.5-4.5) mg/dL Magnesium 2.4 H (1.6-2.3) mg/dL 11/19/18 11/19/18 11/19/18 Range/Units 04:38 04:38 05:10 RBC 2.41 L (3.80-5.40) m/uL Hgb 7.3 L (11.4-16.0) gm/dL Hct 23.7 L (34.0-46.0) % MCHC 30.9 L (31.0-37.0) g/dL RDW 22.1 H (11.5-15.5) % Lymphocytes # 0.8 L (1.0-4.8) k/uL APTT 65.4 H (22.0-30.0) sec ABG pH (7.35-7.45) ABG pCO2 (35-45) mmHg ABG pO2 (83-108) mmHg ABG Total CO2 (19-24) mmol/L Sodium (137-145) mmol/L Potassium (3.5-5.1) mmol/L BUN (7-17) mg/dL Creatinine (0.52-1.04) mg/dL Glucose (74-99) mg/dL POC Glucose (mg/dL) 139 H (75-99) mg/dL Calcium (8.4-10.2) mg/dL Ionized Calcium Nasreen (4.5-5.3) mg/dL Phosphorus (2.5-4.5) mg/dL Magnesium (1.6-2.3) mg/dL 11/19/18 11/19/18 11/19/18 Range/Units 05:56 06:52 08:18 RBC (3.80-5.40) m/uL Hgb (11.4-16.0) gm/dL Hct (34.0-46.0) % MCHC (31.0-37.0) g/dL RDW (11.5-15.5) % Lymphocytes # (1.0-4.8) k/uL APTT (22.0-30.0) sec ABG pH (7.35-7.45) ABG pCO2 (35-45) mmHg ABG pO2 (83-108) mmHg ABG Total CO2 (19-24) mmol/L Sodium (137-145) mmol/L Potassium (3.5-5.1) mmol/L BUN (7-17) mg/dL Creatinine (0.52-1.04) mg/dL Glucose (74-99) mg/dL POC Glucose (mg/dL) 170 H 196 H 200 H (75-99) mg/dL Calcium (8.4-10.2) mg/dL Ionized Calcium Nasreen (4.5-5.3) mg/dL Phosphorus (2.5-4.5) mg/dL Magnesium (1.6-2.3) mg/dL Microbiology - Last 24 Hours (Table) 11/16/18 08:00 Stool Culture - Preliminary Stool Assessment and Plan Assessment: #1 nonoliguric acute kidney injury, currently dialysis dependent secondary to hemodynamic ATN. 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 #4 volume overload. #5 hypervolemic hyponatremia #6 metabolic acidosis Plan: #1 hemodialysis on Wednesday with 2.5 L of ultrafiltration as tolerated. #2 strict ins and outs, monitor for renal recovery. #3 avoid nephrotoxic agents and hypotensive episodes.
[2018-11-19 10:58] LABS: Glucose,Whole Blood 203 mg/dL (75-99)
[2018-11-19 12:16] LABS: Glucose,Whole Blood 189 mg/dL (75-99)
[2018-11-19] MEDS ORDERED: POTASSIUM BICARBONATE/CIT AC 20 MEQ TABLET.EFF PO ONE ×2 (12:16→16:19)
[2018-11-19] MEDS ORDERED: AMIODARONE 200 MG TAB PO STA (12:48)
[2018-11-19] MEDS ORDERED: AMIODARONE 200 MG TAB PO ONE (13:00)
--- NOTE | 2018-11-19 13:16 | PN ---
PROGRESS NOTE Mrs. Monahan is a 58-year-old female with a history of end-stage renal disease, history of coronary artery bypass grafting who presented with progressive dyspnea, was noted to have respiratory failure and had evidence of non STEMI. She is intubated. She continues to be intubated. On the monitor initial she had episode of atrial fibrillation. This time she is having a sinus mechanism with frequent ventricular ectopic activity. She was on dopamine that has been stopped. She is followed by the Nephrology Service regarding her dialysis. She continues to be on amiodarone 200 mg twice a day, aspirin once a day. She is on IV heparin, remains intubated but she is awake and alert. PHYSICAL EXAMINATION: Her blood pressure in the low 100s with the heart rate, sinus rhythm, but she is having runs of triplets. Ventricular ectopic activity. LUNGS: Clear anteriorly. HEART: Regular rate and rhythm, S1-S2 with systolic murmur, no diastolic murmur. ABDOMEN: Soft, obese, nontender. EXTREMITIES: 1+ edema. LAB DATA: Revealed BUN and creatinine 46 and 4.1. Potassium is 3.6. IMPRESSION: 1. Respiratory failure, remains intubated. 2. Severe cardiomyopathy with coronary artery bypass grafting. 3. Prior episode of atrial fibrillation, back in sinus mechanism. 4. Ventricular ectopic activity. 5. Obesity. RECOMMENDATION: From the cardiac standpoint, I will continue on the amiodarone. Will hold on the beta idalmis at this time because the patient had episode of sinus bradycardia in the past. The potassium will be replaced. Depending on her progress, further recommendation will be made. MMODL / IJN: [id number] /
[2018-11-19 13:42] LABS: Glucose,Whole Blood 173 mg/dL (75-99)
[2018-11-19 14:16] LABS: Glucose,Whole Blood 168 mg/dL (75-99)
[2018-11-19] MEDS ORDERED: METOPROLOL TARTRATE 12.5 MG TAB PO STA (14:17)
[2018-11-19] MEDS: LORazepam 2 MG/ML INJ IV PRN ×2 (15:53→19:57)
[2018-11-19 16:01] LABS: Glucose,Whole Blood 151 mg/dL (75-99)
[2018-11-19 16:21] LABS: Glucose,Whole Blood 149 mg/dL (75-99)
[2018-11-19 17:14] LABS: Glucose,Whole Blood 155 mg/dL (75-99)
[2018-11-19] MEDS: INSULIN REGULAR 100 UNIT in SODIUM CHLORIDE 0.9% 100 ML IV SCH (18:15)
[2018-11-19 18:17] LABS: Glucose,Whole Blood 170 mg/dL (75-99)
[2018-11-19 19:15] LABS: Glucose,Whole Blood 165 mg/dL (75-99)
--- NOTE | 2018-11-19 19:40 | PN ---
PROGRESS NOTE DATE OF SERVICE: November 19, 2018. She has been on the ventilator and is being weaned. This morning, she does not seem to be in any pain or in any respiratory distress. Respiratory rate was 20, pulse rate of 74, blood pressure 98/50. HEENT reveals ET tube in place. Chest is clear. Cardiovascular system is S1, S2. Abdomen is soft. There is 1+ pedal edema. LABS: Reveals a white count of 8.9, hemoglobin of 7.3. IMPRESSION: At this time: 1. Acute respiratory failure which is multifactorial in part due to pulmonary embolism as well as congestive heart failure. 2. Obstructive sleep apnea is likely. 3. Chronic obstructive pulmonary disease with exacerbation. 4. Acute tubular necrosis with acute renal failure. Appreciate consultants input. Continue monitoring her closely in the ICU. Continue to dialyze her as needed and attempt to wean her off the ventilator. Her prognosis at this time is guarded. MMODL / IJN: [id number] /
[2018-11-19] MEDS: PRAVASTATIN SODIUM 20 MG TAB PO SCH (20:10)
[2018-11-19] MEDS: MONTELUKAST 10 MG TAB PO SCH (20:10)
[2018-11-19] MEDS: METOPROLOL TARTRATE 12.5 MG TAB PO SCH (20:10)
[2018-11-19 20:12] LABS: Glucose,Whole Blood 163 mg/dL (75-99)
[2018-11-19] MEDS ORDERED: AMIODARONE 200 MG TAB PO SCH (21:00)
[2018-11-19 21:14] LABS: Glucose,Whole Blood 205 mg/dL (75-99)
[2018-11-19 22:06] LABS: Glucose,Whole Blood 171 mg/dL (75-99)
[2018-11-19 23:08] LABS: Glucose,Whole Blood 151 mg/dL (75-99)
[2018-11-20] MEDS: SODIUM CHLORIDE 0.9% 1,000 ML IV SCH (00:18)
[2018-11-20 00:19] LABS: Glucose,Whole Blood 114 mg/dL (75-99)
[2018-11-20 01:14] LABS: Glucose,Whole Blood 168 mg/dL (75-99)
--- NOTE | 2018-11-20 01:25 | PN ---
PROGRESS NOTE REASON FOR FOLLOWUP VISIT: 1. Pneumonia. 2. Antibiotic associated diarrhea. INTERVAL HISTORY: The patient is currently afebrile. The patient remains to be hemodynamically stable, remains to be intubated on the vent. Has been tolerated tube feeds. Diarrhea has slightly slowed down. . PHYSICAL EXAMINATION: On examination, blood pressure 101/53 with a pulse of 77, temperature of 98. She is 97% on 40% FiO2. General description is an elderly female lying in bed in no distress. Respiratory system: Unlabored breathing with decreased breath sounds in the bases. No wheeze. Heart S1, S2. Regular rate and rhythm. ABDOMEN: Soft, no tenderness. LABS: Hemoglobin 7.8, white count 8.9. BUN of 46, creatinine 4.10. Stool cultures have been negative. Stool for C difficile was negative. DIAGNOSTIC IMPRESSION AND PLAN: 1. Patient with acute respiratory failure which is likely multifactorial in this patient with a component of pneumonia that has been adequately treated. Currently off antibiotic therapy. 2. Patient who does have a diarrhea , stool for C difficile was negative. Stool culture negative. Continue with symptomatic treatment. Currently off antibiotic therapy. Continue supportive care. MMODL / IJN: [id number] /
[2018-11-20] MEDS: LORazepam 2 MG/ML INJ IV PRN ×3 (01:42→21:54)
[2018-11-20 02:12] LABS: Glucose,Whole Blood 114 mg/dL (75-99)
[2018-11-20 03:10] LABS: Glucose,Whole Blood 164 mg/dL (75-99)
[2018-11-20 04:12] LABS: Glucose,Whole Blood 199 mg/dL (75-99)
[2018-11-20 04:59] LABS: ABG Base Excess -1.2 mmol/L; ABG HCO3 25 mmol/L (21-25); ABG PCO2 45 mmHg (35-45); ABG PH 7.34 (7.35-7.45); ABG PO2 97 mmHg (83-108); ABG TCO2 26 mmol/L (19-24)
[2018-11-20] MEDS: HYDROmorphone 0.5 MG/0.5 ML SYRINGE IVP PRN ×2 (05:11→08:01)
[2018-11-20 05:12] LABS: Glucose,Whole Blood 218 mg/dL (75-99)
[2018-11-20 05:13] LABS: Anisocytosis Moderate; HCT 23.3 % (34.0-46.0); HGB 7.1 gm/dL (11.4-16.0); Hypochromasia Marked; MCH 30.1 pg (25.0-35.0); MCHC 30.6 g/dL (31.0-37.0); MCV 98.1 fL (80.0-100.0); Macrocytosis Moderate; Mean Platelet Volume 7.5; Platelet Count 271 k/uL (150-450); Poikilocytosis Slight; RBC 2.37 m/uL (3.80-5.40); RDW 22.2 % (11.5-15.5)
[2018-11-20 05:54] LABS: Band Neutrophils % 1 %; Lymphocytes # (M) 0.63 k/uL (1.0-4.8); Metamyelocytes # (M) 0.09 k/uL (0); Metamyelocytes % 1 %; Monocytes # (M) 0.27 k/uL (0-1.0); Neutrophils % (M) 90 %; Nucleated Red Blood Cells 4 /100 WBC (0-0); Total Cells Counted 200
[2018-11-20 05:55] LABS: Ionized Calcium 4.3 mg/dL (4.5-5.3)
[2018-11-20 06:06] LABS: Calcium 7.7 mg/dL (8.4-10.2); Magnesium 2.6 mg/dL (1.6-2.3); Potassium 4.2 mmol/L (3.5-5.1)
[2018-11-20 06:28] LABS: Glucose,Whole Blood 198 mg/dL (75-99)
[2018-11-20 07:16] LABS: Glucose,Whole Blood 179 mg/dL (75-99)
--- NOTE | 2018-11-20 07:23 | XR ---
EXAMINATION TYPE: XR chest 1V portable DATE OF EXAM: 11/20/2018 COMPARISON: November 19, 2018 HISTORY: SOB, Follow Up FINDINGS: Indwelling tubes and catheters are unchanged. Basilar infiltrates and small effusions noted. Stable appearance of the cardio-mediastinal structures at this time. IMPRESSION: 1. Stable portable chest. Clinical correlation and follow up until resolution is recommended.
[2018-11-20] MEDS: ALBUTEROL NEBULIZED 2.5 MG/3 ML INHALATION PRN ×5 (07:37→23:39)
[2018-11-20] MEDS: NICOTINE 21MG/24HR PATCH TRANSDERM SCH (08:02)
[2018-11-20] MEDS: methylPREDNISolone SOD SUCCI 40 MG/ML 1 ML VIAL IV SCH ×2 (08:02→21:48)
[2018-11-20] MEDS: CHLORHEXIDINE GLUCONATE 15 ML CUP MUCOUS MEM SCH (08:02)
[2018-11-20] MEDS: METOPROLOL TARTRATE 12.5 MG TAB PO SCH (08:02)
[2018-11-20] MEDS: FERROUS SULFATE ORAL ELIXIR 300 MG/5 ML CUP NG-TUBE SCH (08:02)
[2018-11-20] MEDS: AMIODARONE 200 MG TAB PO SCH ×2 (08:02→21:44)
[2018-11-20] MEDS: CALCIUM ACETATE 667 MG CAP PO SCH ×3 (08:03→15:56)
[2018-11-20] MEDS: ASPIRIN 81 MG PO SCH (08:03)
[2018-11-20] MEDS: PANTOPRAZOLE 40 MG/10 ML VIAL IVP SCH ×2 (08:03→21:48)
[2018-11-20 08:21] LABS: Glucose,Whole Blood 173 mg/dL (75-99)
[2018-11-20] MEDS ORDERED: METOPROLOL TARTRATE 12.5 MG TAB PO ONE (09:00)
[2018-11-20 09:36] LABS: Glucose,Whole Blood 153 mg/dL (75-99)
--- NOTE | 2018-11-20 10:02 | PN ---
PROGRESS NOTE HISTORY: Ms. Monahan is a 59-year-old female known history of premature coronary disease with coronary bypass grafting, severe peripheral disease, end-stage renal disease on hemodialysis, who presented with nausea and vomiting and abdominal pain and progressive dyspnea. She remains intubated. Yesterday she was having a sinus mechanism with frequent short bursts of ventricular tachycardia. She is more stable at this time. She is on a very low dose of norepinephrine. She has started the low-dose beta idalmis. She remains intubated. She is scheduled to undergo dialysis tomorrow and continues to be on amiodarone 40 mg twice a day, pravastatin 20 mg daily, metoprolol tartrate 12.5 mg twice a day. PHYSICAL EXAMINATION: Blood pressure running in the low 100s with a heart rate in 70s. Lungs clear anteriorly. Heart regular rate and rhythm, S1, S2. No S3. No rub appreciated with a systolic murmur. Abdomen is soft, positive bowel sounds. No organomegaly. Extremities +2 edema. LAB DATA: BUN and creatinine 71 and 4.85. Potassium 4.2 and hemoglobin of 7.1. IMPRESSION: 1. Respiratory failure with history of severe ischemic cardiomyopathy. 2. Status post coronary artery bypass grafting. 3. Ventricular ectopic activity with nonsustained ventricular tachycardia, improved. 4. End-stage renal disease. 5. Anemia. RECOMMENDATIONS: From the cardiac standpoint, I will increase the dose of her beta idalmis, continue clinical observation. We will continue present dose of amiodarone at this time. Depending on her progress, further recommendations will be made. Unfortunately the prognosis remains guarded. MMODL / IJN: [id number] /
--- NOTE | 2018-11-20 10:12 | P.PN ---
Subjective Progress Note Date: 11/19/18 (Late entry note) Principal diagnosis: Acute renal failure, altered mental status likely related to acute renal failure , hypotension, severe sepsis, hypertension, A. fib with RVR, episode a wide- complex tachycardia, Right lower extremity venous thrombosis, chronic intermittent thromboembolism, pulmonary hypertension, biventricular failure, acute on chronic systolic heart failure, acute on chronic renal failure is stage IV, small bilateral pleural effusion likely related to heart failure, morbid obesity, suspect sleep disorder breathing and sleep apnea 11/19/2018, patient seen and evaluated examined during the rounds, (late entry note), patient has undergone 2 trials of weaning earlier today, second episode was complicated with tachypnea and tachycardia, patient had a run of wide complex tachycardia however resolved spontaneously cardiovascular services following adjusting the dose of amiodarone, patient is scheduled for next dialysis on Wednesday, patient remains on 5 mics of levo, remains on assist control mode otherwise will repeat the weaning if tolerated well possible extubation in next 24 hours, and labs reviewed medications reviewed care plan discussed with staff, patient does open eyes follow intermittent commands but not consistently 11/18/2018, patient seen eval examined during the rounds patient is arousable currently on 5 mics of levo fed remains on full ventilator support, CPAP was not attempted earlier today for unclear reasons, patient just has been noted to have episode of bradycardia heart rate dropped down into 40s, hemodynamics however remains stable with stable blood pressure, is being planned for hemodialysis later on today, labs reviewed medications reviewed, bradycardia episode appeared to be related to high-dose amiodarone which has been reduced from 400 twice a day to 200 twice a day with plans to hold the dose tonight we' ll recommend up parameters to hold amiodarone if heart rate remains less than 60 -70 continue other supportive care in the meantime we'll do a CPAP and pressure support 5 and 5 and try to get a blood gas if tolerated well will do a CPAP trial for an hour to 2 hours as tolerated 11/17/2018, patient seen romain reexamined during the rounds, patient had the episode of the irregular heartbeat and wide complex tachycardia while undergoing hemodialysis, the dialysis was terminated early yesterday, followed by an another episode while she was undergoing CPAP trial last night, CPAP trial was canceled at bedtime, patient remains on oral amiodarone, patient has been intermittently in and out of sinus rhythm as well as the atrial fibrillation currently patient is on well-controlled ventricular rate, she is sedated with the Ativan as needed Dilaudid is being given and started for pain control, patient is now off of propofol drip, patient is due for hemodialysis as per discussion with the renal services today, radiographic studies reviewed chest x-ray fairly stable, current vent settings include assist control rate of the 20 tidal volume 500 with 5 of PEEP and 40% oxygen had peaked or pressure in mid 30s, patient remains on insulin drip about 11 units, levo fed is down to 5 mics, the stool for C. difficile is negative, labs reviewed medications reviewed care plan discussed with the staff as well as the renal service at length critical care time spent 45 minutes 11/16/2018, patient seen eval examined during the rounds she is still under affect of propofol which has been discontinued and has been resumed though, patient has some loose stool which has been sent for C. difficile, hemodynamic status slightly improved patient is now on 4 mics of levo fed drip, ventilator setting remains as stable, arterial blood gas revealed suggestive of respiratory and metabolic acidosis, care plan discussed with the staff at length , will continue current supportive care and agree with hemodialysis later on today patient is being started on IV Solu-Medrol continue breathing treatment in addition will DC the propofol "patient on morphine and Ativan and set up a protocol for weaning will do CPAP and pressure support trial with 5 and 10 twice a day for one to 2 hours as tolerated blood patient to be more awake now, critical care time spent 35 minutes 11/15/2018, patient seen eval examined during the rounds clinically has been doing well awake and alert levo fed drip is down to 11 mics, ventilator setting remains stable, patient remains on heparin drip, currently patient is assist control rate of 20 breathing 20 tidal volume of 5oo, 40% oxygen and 5 of PEEP, the acral cyanosis essentially unchanged, patient has very minimal urine output , labs reviewed medications reviewed, we'll taper down the propofol drip with that and hemodynamics will improve also can initiate the weaning trial will see if patient can tolerate a trial for half an hour with CPAP 5 and pressure support of 5 11/14/2018, patient seen eval examined during the rounds clinically has been doing essentially unchanged status post hemodialysis 1.5 L of fluid has been removed, labs reviewed medications reviewed care plan discussed, the BUN/ creatinine improved to 44 and 4.9, liver function continued to improve 11/13/2018, patient seen and evaluated examined during the rounds, patient does withdraws to pain and physical stimuli, she is sedated with propofol drip, patient is on 25 mics of propofol if lower down becomes restless less anxious and agitated, patient has been remain on heparin drip tolerating very well no evidence of bleeding has been seen, the acral cyanosis in the upper extremity appears to have improved today however in the lower extremity remains unchanged , patient is also on bicarb drip U fed drip is down to 14 mics which is gradually being titrated patient is on insulin drip 2.5 units an hour for hyperglycemia, her peak airway pressures 33 her vent settings include assist control rate of 20 breathing 20 tidal volume 505 of PEEP and 40% oxygen, her sputum culture results and reports are reviewed no growth has been noted blood cultures no growth so far, patient was able to get the hemodialysis yesterday 1.5 L of fluid has been removed, labs from today reviewed white cell count continue to go down is 10,900 hemoglobin remained stable 8.5, patient is well anticoagulated with IV heparin, platelet count remains stable but however slow decline has as been noted which is being monitored observe his 135, patient is on tube feed tolerating very well slowly been escalated, BUN/creatinine has improved to 38 and 4.1, sodium is 132, LFT continued to improve AST/ALT now in to low thousands, IV amiodarone infusion has a stab patient is now on by mouth amiodarone no new episodes of A. fib RVR or V. tach has been noted, chest x-ray remains stable, critical care time spent 45 minutes 11/12/2018, patient seen eval examined during the rounds clinically patient is slightly improved in terms of laboratory data and hemodynamic support, patient remains sedated with propofol drip currently the dose is down to 40 mics, it is down to 20 mics patient continued to manifest ischemic changes in the toes as well as in the fingertips, bicarb drip is being given to counteract severe profound metabolic peripheral acidosis, she remains on full ventilator support with assist control of 20 tidal volume of 500, PEEP of 5, FiO2 down to 65%, oxygen saturation is 100% as checked with the right ear lobe, patient is now in sinus rhythm has been in A. fib but spontaneously converted patient has been amiodarone IV which is to be switched to oral aspirin cardiovascular services, current infusions include heparin drip tolerating very well no new bleeding has been seen along with levo fed drip 20 mics, propofol drip and bicarb drip, respiratory secretions are minimal, bowel sounds are hypoactive, no evidence of bleeding has been seen patient to be started on tube feed and dialysis is being planned later on today as well as per discussion with the renal services, answers are all negative so far, chest x-ray shows right lower lobe subsegmental atelectasis small effusion which is stable, leukocytosis improved today compared to yesterday, critical care time spent 35 minutes 11/11/2018, patient seen eval examined during the rounds clinically patient remains sedated and intubated, currently patient is on now full ventilator support she is on assist control rate of 20 breathing 20 tidal volume of 505 of PEEP and 75% oxygen, patient remains on heparin drip which is has been started this morning, also on propofol drip 45 mics, levo fed drip is off 24 mics, patient does have been noted to have as a spasm in the upper extremity as well as lower extremity with bluish discoloration, patient has being restarted on heparin drip to optimize the levo fed to contract severe profound metabolic acidosis, reviewed medications reviewed care plan discussed with the staff at length, patient will need a arterial line attempted but unable to cannulate the femoral artery, however able to access the femoral vein a triple-lumen catheter most of the infusions are incompatible with each other, dialysis is not performed due to unstable situation and condition, urine output remains very minimal, Keofeed to be started heparin to be continued monitor hemoglobin closely, critical care time spent 45 minutes including procedure, Patient was intubated last night due to severe tachypnea and tachycardia and intermittent runs of the V. tach along with atrial fibrillation, patient has been initiated amiodarone drip as well, given that ABG could not be obtained venous blood gases are being used 11/10/2018, patient seen eval reexamined during the rounds clinically patient has a not much change from baseline has been transfused 1 unit of packed RBC patient to has been more lethargic but readily arousable arterial blood gas couldn't be obtained a venous blood gas has been performed continued to show respiratory acidosis combined with metabolic acidosis, patient is due for dialysis today also been planned for EGD which has been performed some gastritis has been noted with some white patches suggestive of ischemic changes cannot be excluded for details please refer to EGD note, patient remains on 7 mics of levo fed which is to be titrated down as blood pressure has improved, we will do low-dose bicarb drip as well patient did receive a dose of desmopressin earlier this morning, patient remains on BiPAP 15/10 with the FiO2 to keep saturation over 90-94%, patient remain somnolent and lethargic but readily arousable respond appropriately when awake then goes right back to sleep , patient did receive a dose of Xanax 11/08/2018, patient seen eval reexamined during the rounds clinically patient remains marginal continue require vasopressors currently patient is on 19 mics of levo fed drip, during dialysis patient had episode of the tachyarrhythmia requiring amiodarone now patient after the initial IV boluses back to sinus rhythm, hemodynamic status is overall stable but marginal, urine output remains very low, patient did tolerate the hemodialysis fairly well earlier this morning except the findings as noted to more old bleeding noted it appears to be old blood, patient is currently on desmopressin drip, also has been infused with 1 unit of packed RBC, heparin drip has been on hold since yesterday, vascular surgery has been consulted for evaluation of IVC filter as patient has deep venous thrombosis right lower extremity, sugars continue to be run on the higher side remains on insulin drip, patient is on proton pump inhibitor IV with frequent monitoring with monitoring observation her hemoglobin him to keep hemoglobin over 7 no active bleeding however has been noted by GI services has been consulted as well for GI bleed, Estrace standpoint tolerating BiPAP very well currently patient is on BiPAP with 12 of BiPAP the and 5 EPAP respiratory rate is 22 her spontaneous tidal volumes ranging in mid 400 range, she is on 40 % oxygen, arterial blood gas couldn't be drawn, labs medications and radiographic studies reviewed culture results are reviewed as well no positive cultures been seen patient remains on Zosyn, critical care time spent 35 minutes 11/07/2018, patient seen and evaluated examined during the rounds this morning critical care time spent 40 minutes, patient has removed to the ICU from medical floor as she was hypotensive with poor urine output in addition patient has been more somnolent and lethargic she did have receive a dose of Xanax on the floor, after arrival in ICU patient remains very hypotensive with tachycardia was given multiple fluid boluses to improve the hemodynamics however eventually starting the levo fed drip, patient does have 2 peripheral IVs one of them is not functioning very well, worsening of renal function has been noted the renal services planning to do hemodialysis, patient has very poor peripheral arterial disease unable to obtain ABG in addition to that very poor peripheral pulses are present, patient is arousable opens eyes follow simple commands but remains very anxious and agitated, patient eventually went up to 25 mics of levo fed drip with a systolic blood pressure ranging about 100 210, urine output has been very minimal, given that the lack of ability of IV axis will proceed with a central line however patient needed dialysis port as well will do a trilysis catheter (hemodialysis catheter with extra port), care plan discussed with the vascular surgery as well and renal services planning to do hemodialysis later on today provided hemodynamics remain stable, due to anticipated profound metabolic acidosis patient has been started on bicarb drip , patient is being kept on IV Zosyn heparin has been on hold due to procedures as well as elevated PTT labs reviewed medications reviewed radiographic studies reviewed as well 11/06/2018, patient seen eval examined during the rounds clinically patient has a been doing relatively better in terms of shortness of breath and swelling of the lower extremity patient is currently on room air however renal function continued to go up slightly and Lasix dose is being adjusted by renal service labs reviewed medications reviewed for now we'll continue IV heparin hopefully next 24-48 hours we'll switch it to oral anticoagulants 11/05/2018, patient seen eval reexamined during the rounds clinically has been doing relatively better in terms of breathing leg swelling the lower extremity is slightly better patient is on anticoagulation with IV heparin for DVT thrombosis of lower extremity on the right side also probable pulmonary embolism as well Patient presented to the hospital with worsening dyspnea and edema. Patient states she's been getting progressively short of breath over the last 1 week. She initially thought it was asthma but the symptoms did not improve with nebulized treatments. She also noticed edema in her legs. She states she does not take any diuretics at home. She admits to good urine output. No hematuria or dysuria. No vomiting or diarrhea. Oral intake has been fair. Denies use of NSAIDs. Chest CT revealed bilateral pleural effusions. Echocardiogram revealed ejection fraction of 35-40% with severe pulmonary hypertension. Currently maintained on Lasix 40 mg IV twice daily. She has been voiding. No fever or chills. Her duplex ultrasound of the lower extremity came back positive for DVT patient is now being started on IV heparin Objective - Vital Signs Vital signs: Vital Signs Temp 97.5 F L 11/20/18 08:00 Pulse 75 11/20/18 08:00 Resp 20 11/20/18 08:00 BP 103/54 11/20/18 08:00 Pulse Ox 96 11/20/18 08:00 Intake & Output 11/19/18 11/20/18 11/20/18 18:59 06:59 18:59 Intake Total 494.740 2756.731 73.367 Output Total 0 0 0 Balance 819.174 9903.731 73.367 Weight 126.6 kg Intake: IV 180 180 30 Sodium Chloride 0.9% 1, 180 180 30 000 ml @ 10 mls/hr IV . Q24H [facility] Rx#:[id number] Intake, IV Titration 107.263 427.731 12.367 Amount Heparin Sod,Pork in 0.45% 328.969 0 NaCl 25,000 unit In 0.45 % NaCl 1 250ml.bag @ 8.45 UNITS/KG/HR 9.97 mls/hr IV .Q24H [facility] Rx#: [id number] Insulin Regular 100 unit 46.880 46.055 6.127 In Sodium Chloride 0.9% 100 ml @ Per Protocol IV .Q0M [facility] Rx#:[id number] Norepinephrine 16 mg In 60.383 52.707 6.24 Sodium Chloride 0.9% 250 ml @ Titrate IV .Q0M [facility] Rx#:[id number] Tube Feeding 124 465 31 Other 90 Output: Urine 0 0 0 Other: Voiding Method Indwelling Catheter Indwelling Catheter - Exam - Constitutional General appearance: disheveled, mild distress, morbidly obese, intermittently anxious and agitated now relatively more comfortable on full ventilator support - Neck Neck: normal ROM Carotids: bilateral: upstroke normal Thyroid: bilateral: normal size - Respiratory Respiratory: bilateral: CTA, few basal rales, negative: diminished, dullness - Cardiovascular Rhythm: regular Heart sounds: normal: S1, S2 - Integumentary Integumentary: normal turgor Abdomen soft - Neurologic Neurologic: CNII-XII intact - Musculoskeletal Musculoskeletal: Moving all 4 extremity good tone in all 4 extremity, peripheral acral cyanosis in the toes and the fingertips noted as dictated above , the cyanosis in the fingertips have appeared to improve - Psychiatric Psychiatric: A&O x's 2, in appropriate affect, at times become anxious and agitated and combative however now currently more calm and comfortable - Labs CBC & Chem 7: 11/20/18 04:56 11/20/18 04:56 Labs: Abnormal Lab Results - Last 24 Hours (Table) 11/19/18 11/19/18 11/19/18 Range/Units 10:46 12:04 13:30 RBC (3.80-5.40) m/uL Hgb (11.4-16.0) gm/dL Hct (34.0-46.0) % MCHC (31.0-37.0) g/dL RDW (11.5-15.5) % Neutrophils # (Manual) (1.3-7.7) k/uL Lymphocytes # (Manual) (1.0-4.8) k/uL Metamyelocytes # (Man) (0) k/uL Nucleated RBCs (0-0) /100 WBC APTT (22.0-30.0) sec ABG pH (7.35-7.45) ABG Total CO2 (19-24) mmol/L ABG O2 Saturation (94-97) % Sodium (137-145) mmol/L BUN (7-17) mg/dL Creatinine (0.52-1.04) mg/dL Glucose (74-99) mg/dL POC Glucose (mg/dL) 203 H 189 H 173 H (75-99) mg/dL Calcium (8.4-10.2) mg/dL Ionized Calcium Nasreen (4.5-5.3) mg/dL Magnesium (1.6-2.3) mg/dL 11/19/18 11/19/18 11/19/18 Range/Units 14:03 15:32 16:10 RBC (3.80-5.40) m/uL Hgb (11.4-16.0) gm/dL Hct (34.0-46.0) % MCHC (31.0-37.0) g/dL RDW (11.5-15.5) % Neutrophils # (Manual) (1.3-7.7) k/uL Lymphocytes # (Manual) (1.0-4.8) k/uL Metamyelocytes # (Man) (0) k/uL Nucleated RBCs (0-0) /100 WBC APTT (22.0-30.0) sec ABG pH (7.35-7.45) ABG Total CO2 (19-24) mmol/L ABG O2 Saturation (94-97) % Sodium (137-145) mmol/L BUN (7-17) mg/dL Creatinine (0.52-1.04) mg/dL Glucose (74-99) mg/dL POC Glucose (mg/dL) 168 H 151 H 149 H (75-99) mg/dL Calcium (8.4-10.2) mg/dL Ionized Calcium Nasreen (4.5-5.3) mg/dL Magnesium (1.6-2.3) mg/dL 11/19/18 11/19/18 11/19/18 Range/Units 17:03 18:04 19:03 RBC (3.80-5.40) m/uL Hgb (11.4-16.0) gm/dL Hct (34.0-46.0) % MCHC (31.0-37.0) g/dL RDW (11.5-15.5) % Neutrophils # (Manual) (1.3-7.7) k/uL Lymphocytes # (Manual) (1.0-4.8) k/uL Metamyelocytes # (Man) (0) k/uL Nucleated RBCs (0-0) /100 WBC APTT (22.0-30.0) sec ABG pH (7.35-7.45) ABG Total CO2 (19-24) mmol/L ABG O2 Saturation (94-97) % Sodium (137-145) mmol/L BUN (7-17) mg/dL Creatinine (0.52-1.04) mg/dL Glucose (74-99) mg/dL POC Glucose (mg/dL) 155 H 170 H 165 H (75-99) mg/dL Calcium (8.4-10.2) mg/dL Ionized Calcium Nasreen (4.5-5.3) mg/dL Magnesium (1.6-2.3) mg/dL 11/19/18 11/19/18 11/19/18 Range/Units 20:01 21:03 21:55 RBC (3.80-5.40) m/uL Hgb (11.4-16.0) gm/dL Hct (34.0-46.0) % MCHC (31.0-37.0) g/dL RDW (11.5-15.5) % Neutrophils # (Manual) (1.3-7.7) k/uL Lymphocytes # (Manual) (1.0-4.8) k/uL Metamyelocytes # (Man) (0) k/uL Nucleated RBCs (0-0) /100 WBC APTT (22.0-30.0) sec ABG pH (7.35-7.45) ABG Total CO2 (19-24) mmol/L ABG O2 Saturation (94-97) % Sodium (137-145) mmol/L BUN (7-17) mg/dL Creatinine (0.52-1.04) mg/dL Glucose (74-99) mg/dL POC Glucose (mg/dL) 163 H 205 H 171 H (75-99) mg/dL Calcium (8.4-10.2) mg/dL Ionized Calcium Nasreen (4.5-5.3) mg/dL Magnesium (1.6-2.3) mg/dL 11/19/18 11/20/18 11/20/18 Range/Units 22:56 00:08 01:03 RBC (3.80-5.40) m/uL Hgb (11.4-16.0) gm/dL Hct (34.0-46.0) % MCHC (31.0-37.0) g/dL RDW (11.5-15.5) % Neutrophils # (Manual) (1.3-7.7) k/uL Lymphocytes # (Manual) (1.0-4.8) k/uL Metamyelocytes # (Man) (0) k/uL Nucleated RBCs (0-0) /100 WBC APTT (22.0-30.0) sec ABG pH (7.35-7.45) ABG Total CO2 (19-24) mmol/L ABG O2 Saturation (94-97) % Sodium (137-145) mmol/L BUN (7-17) mg/dL Creatinine (0.52-1.04) mg/dL Glucose (74-99) mg/dL POC Glucose (mg/dL) 151 H 114 H 168 H (75-99) mg/dL Calcium (8.4-10.2) mg/dL Ionized Calcium Nasreen (4.5-5.3) mg/dL Magnesium (1.6-2.3) mg/dL 11/20/18 11/20/18 11/20/18 Range/Units 02:01 02:59 04:01 RBC (3.80-5.40) m/uL Hgb (11.4-16.0) gm/dL Hct (34.0-46.0) % MCHC (31.0-37.0) g/dL RDW (11.5-15.5) % Neutrophils # (Manual) (1.3-7.7) k/uL Lymphocytes # (Manual) (1.0-4.8) k/uL Metamyelocytes # (Man) (0) k/uL Nucleated RBCs (0-0) /100 WBC APTT (22.0-30.0) sec ABG pH (7.35-7.45) ABG Total CO2 (19-24) mmol/L ABG O2 Saturation (94-97) % Sodium (137-145) mmol/L BUN (7-17) mg/dL Creatinine (0.52-1.04) mg/dL Glucose (74-99) mg/dL POC Glucose (mg/dL) 114 H 164 H 199 H (75-99) mg/dL Calcium (8.4-10.2) mg/dL Ionized Calcium Nasreen (4.5-5.3) mg/dL Magnesium (1.6-2.3) mg/dL 11/20/18 11/20/18 11/20/18 Range/Units 04:56 04:56 04:56 RBC 2.37 L (3.80-5.40) m/uL Hgb 7.1 L (11.4-16.0) gm/dL Hct 23.3 L (34.0-46.0) % MCHC 30.6 L (31.0-37.0) g/dL RDW 22.2 H (11.5-15.5) % Neutrophils # (Manual) 8.10 H (1.3-7.7) k/uL Lymphocytes # (Manual) 0.63 L (1.0-4.8) k/uL Metamyelocytes # (Man) 0.09 H (0) k/uL Nucleated RBCs 4 H (0-0) /100 WBC APTT 129.9 H* (22.0-30.0) sec ABG pH (7.35-7.45) ABG Total CO2 (19-24) mmol/L ABG O2 Saturation (94-97) % Sodium 133 L (137-145) mmol/L BUN 71 H (7-17) mg/dL Creatinine 4.85 H (0.52-1.04) mg/dL Glucose 200 H (74-99) mg/dL POC Glucose (mg/dL) (75-99) mg/dL Calcium 7.7 L (8.4-10.2) mg/dL Ionized Calcium Nasreen 4.3 L (4.5-5.3) mg/dL Magnesium 2.6 H (1.6-2.3) mg/dL 11/20/18 11/20/18 11/20/18 Range/Units 04:57 04:58 06:17 RBC (3.80-5.40) m/uL Hgb (11.4-16.0) gm/dL Hct (34.0-46.0) % MCHC (31.0-37.0) g/dL RDW (11.5-15.5) % Neutrophils # (Manual) (1.3-7.7) k/uL Lymphocytes # (Manual) (1.0-4.8) k/uL Metamyelocytes # (Man) (0) k/uL Nucleated RBCs (0-0) /100 WBC APTT (22.0-30.0) sec ABG pH 7.34 L (7.35-7.45) ABG Total CO2 26 H (19-24) mmol/L ABG O2 Saturation 98.0 H (94-97) % Sodium (137-145) mmol/L BUN (7-17) mg/dL Creatinine (0.52-1.04) mg/dL Glucose (74-99) mg/dL POC Glucose (mg/dL) 218 H 198 H (75-99) mg/dL Calcium (8.4-10.2) mg/dL Ionized Calcium Nasreen (4.5-5.3) mg/dL Magnesium (1.6-2.3) mg/dL 11/20/18 11/20/18 11/20/18 Range/Units 07:04 08:09 09:25 RBC (3.80-5.40) m/uL Hgb (11.4-16.0) gm/dL Hct (34.0-46.0) % MCHC (31.0-37.0) g/dL RDW (11.5-15.5) % Neutrophils # (Manual) (1.3-7.7) k/uL Lymphocytes # (Manual) (1.0-4.8) k/uL Metamyelocytes # (Man) (0) k/uL Nucleated RBCs (0-0) /100 WBC APTT (22.0-30.0) sec ABG pH (7.35-7.45) ABG Total CO2 (19-24) mmol/L ABG O2 Saturation (94-97) % Sodium (137-145) mmol/L BUN (7-17) mg/dL Creatinine (0.52-1.04) mg/dL Glucose (74-99) mg/dL POC Glucose (mg/dL) 179 H 173 H 153 H (75-99) mg/dL Calcium (8.4-10.2) mg/dL Ionized Calcium Nasreen (4.5-5.3) mg/dL Magnesium (1.6-2.3) mg/dL Microbiology - Last 24 Hours (Table) 11/16/18 08:00 Stool Culture - Final Stool Assessment and Plan Assessment: Intermittent episodes of wide complex tachycardia, amiodarone is being adjusted as noted above Acute on chronic renal failure and anuric, on hemodialysis Runs of the atrial fibrillation and tachyarrhythmia and wide complex tachycardia , now patient is back in sinus rhythm, amiodarone has been oral Acute respiratory failure multifactorial due to profound metabolic acidosis along with arrhythmia and congestive heart failure likely biventricular failure and pulmonary embolism Severe sepsis on broad-spectrum antibiotics, possible right lower lobe pneumonia cannot be excluded less likely aspiration related as patient has a good gag flex GI bleed of unclear source status post blood transfusion, hemoglobin has been stable now no evidence of active bleeding has been seen on IV heparin Altered mental status and metabolic encephalopathy likely multifactorial related to renal failure Deep venous thrombosis of right lower extremity and possible pulmonary embolism 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 Small bilateral pleural effusion more so on the right side compared to left side Acute blood loss anemia Non-STEMI Plan: Continue intermittent pain medications as well as benzodiazepine however avoid propofol Continue weaning as per plan Anticoagulation currently is being continued in the form of IV heparin, tolerating it fairly well We will defer placement of IVC filter to vascular surgery Status post PICC line by IR Continue hemodialysis as tolerated per renal service Blood transfusion as needed keep hemoglobin over 7 Optimize therapy for heart failure Monitor renal functions closely Further recommendations pending plan of care as per clinical response of the patient Bicarb drip low-dose to be reinitiated due to vasa spasm and cyanotic changes into the toes Taper levo fed drip as tolerated We'll continue to taper down the pressors as tolerated continue bicarb drip Continue tube feed Once patient is more hemodynamically stable reinitiated weaning as tolerated Time with Patient: Greater than 30
--- NOTE | 2018-11-20 10:19 | P.PN ---
Subjective Progress Note Date: 11/20/18 Principal diagnosis: Acute renal failure, altered mental status likely related to acute renal failure , hypotension, severe sepsis, hypertension, A. fib with RVR, episode a wide- complex tachycardia, Right lower extremity venous thrombosis, chronic intermittent thromboembolism, pulmonary hypertension, biventricular failure, acute on chronic systolic heart failure, acute on chronic renal failure is stage IV, small bilateral pleural effusion likely related to heart failure, morbid obesity, suspect sleep disorder breathing and sleep apnea 11/20/2018, patient seen eval examined during the rounds patient remains on assist control mode with assist control of 20 breathing 20 tidal volume of 450 PEEP of 5 and 40% oxygen, patient is on 5 mics of levo fed drip, blood pressure ranging from map of 60-65, urine output remains absent, patient over not overnight remains stable no episode of GI bleed or arrhythmia however has been noted, patient does open eyes intermittently does follow simple commands, I have placed patient on CPAP of 5 and pressure support of 5 she was monitor observe for half an hour, her weaning parameters were reviewed with the respiratory labs reviewed medications reviewed, chest x-ray performed earlier this morning reviewed and compared with prior x-ray remains unchanged, the hemoglobin is 7.1, arterial blood gas from earlier this morning reviewed remains stable, after the successful trial patient has been extubated and placed on supplemental oxygen overall doing well, critical care time spent 40 minutes 11/19/2018, patient seen and evaluated examined during the rounds, (late entry note), patient has undergone 2 trials of weaning earlier today, second episode was complicated with tachypnea and tachycardia, patient had a run of wide complex tachycardia however resolved spontaneously cardiovascular services following adjusting the dose of amiodarone, patient is scheduled for next dialysis on Wednesday, patient remains on 5 mics of levo, remains on assist control mode otherwise will repeat the weaning if tolerated well possible extubation in next 24 hours, and labs reviewed medications reviewed care plan discussed with staff, patient does open eyes follow intermittent commands but not consistently 11/18/2018, patient seen eval examined during the rounds patient is arousable currently on 5 mics of levo fed remains on full ventilator support, CPAP was not attempted earlier today for unclear reasons, patient just has been noted to have episode of bradycardia heart rate dropped down into 40s, hemodynamics however remains stable with stable blood pressure, is being planned for hemodialysis later on today, labs reviewed medications reviewed, bradycardia episode appeared to be related to high-dose amiodarone which has been reduced from 400 twice a day to 200 twice a day with plans to hold the dose tonight we' ll recommend up parameters to hold amiodarone if heart rate remains less than 60 -70 continue other supportive care in the meantime we'll do a CPAP and pressure support 5 and 5 and try to get a blood gas if tolerated well will do a CPAP trial for an hour to 2 hours as tolerated 11/17/2018, patient seen evlauro reexamined during the rounds, patient had the episode of the irregular heartbeat and wide complex tachycardia while undergoing hemodialysis, the dialysis was terminated early yesterday, followed by an another episode while she was undergoing CPAP trial last night, CPAP trial was canceled at bedtime, patient remains on oral amiodarone, patient has been intermittently in and out of sinus rhythm as well as the atrial fibrillation currently patient is on well-controlled ventricular rate, she is sedated with the Ativan as needed Dilaudid is being given and started for pain control, patient is now off of propofol drip, patient is due for hemodialysis as per discussion with the renal services today, radiographic studies reviewed chest x-ray fairly stable, current vent settings include assist control rate of the 20 tidal volume 500 with 5 of PEEP and 40% oxygen had peaked or pressure in mid 30s, patient remains on insulin drip about 11 units, levo fed is down to 5 mics, the stool for C. difficile is negative, labs reviewed medications reviewed care plan discussed with the staff as well as the renal service at length critical care time spent 45 minutes 11/16/2018, patient seen evlauro examined during the rounds she is still under affect of propofol which has been discontinued and has been resumed though, patient has some loose stool which has been sent for C. difficile, hemodynamic status slightly improved patient is now on 4 mics of levo fed drip, ventilator setting remains as stable, arterial blood gas revealed suggestive of respiratory and metabolic acidosis, care plan discussed with the staff at length , will continue current supportive care and agree with hemodialysis later on today patient is being started on IV Solu-Medrol continue breathing treatment in addition will DC the propofol "patient on morphine and Ativan and set up a protocol for weaning will do CPAP and pressure support trial with 5 and 10 twice a day for one to 2 hours as tolerated blood patient to be more awake now, critical care time spent 35 minutes 11/15/2018, patient seen eval examined during the rounds clinically has been doing well awake and alert levo fed drip is down to 11 mics, ventilator setting remains stable, patient remains on heparin drip, currently patient is assist control rate of 20 breathing 20 tidal volume of 5oo, 40% oxygen and 5 of PEEP, the acral cyanosis essentially unchanged, patient has very minimal urine output , labs reviewed medications reviewed, we'll taper down the propofol drip with that and hemodynamics will improve also can initiate the weaning trial will see if patient can tolerate a trial for half an hour with CPAP 5 and pressure support of 5 11/14/2018, patient seen eval examined during the rounds clinically has been doing essentially unchanged status post hemodialysis 1.5 L of fluid has been removed, labs reviewed medications reviewed care plan discussed, the BUN/ creatinine improved to 44 and 4.9, liver function continued to improve 11/13/2018, patient seen and evaluated examined during the rounds, patient does withdraws to pain and physical stimuli, she is sedated with propofol drip, patient is on 25 mics of propofol if lower down becomes restless less anxious and agitated, patient has been remain on heparin drip tolerating very well no evidence of bleeding has been seen, the acral cyanosis in the upper extremity appears to have improved today however in the lower extremity remains unchanged , patient is also on bicarb drip U fed drip is down to 14 mics which is gradually being titrated patient is on insulin drip 2.5 units an hour for hyperglycemia, her peak airway pressures 33 her vent settings include assist control rate of 20 breathing 20 tidal volume 505 of PEEP and 40% oxygen, her sputum culture results and reports are reviewed no growth has been noted blood cultures no growth so far, patient was able to get the hemodialysis yesterday 1.5 L of fluid has been removed, labs from today reviewed white cell count continue to go down is 10,900 hemoglobin remained stable 8.5, patient is well anticoagulated with IV heparin, platelet count remains stable but however slow decline has as been noted which is being monitored observe his 135, patient is on tube feed tolerating very well slowly been escalated, BUN/creatinine has improved to 38 and 4.1, sodium is 132, LFT continued to improve AST/ALT now in to low thousands, IV amiodarone infusion has a stab patient is now on by mouth amiodarone no new episodes of A. fib RVR or V. tach has been noted, chest x-ray remains stable, critical care time spent 45 minutes 11/12/2018, patient seen eval examined during the rounds clinically patient is slightly improved in terms of laboratory data and hemodynamic support, patient remains sedated with propofol drip currently the dose is down to 40 mics, it is down to 20 mics patient continued to manifest ischemic changes in the toes as well as in the fingertips, bicarb drip is being given to counteract severe profound metabolic peripheral acidosis, she remains on full ventilator support with assist control of 20 tidal volume of 500, PEEP of 5, FiO2 down to 65%, oxygen saturation is 100% as checked with the right ear lobe, patient is now in sinus rhythm has been in A. fib but spontaneously converted patient has been amiodarone IV which is to be switched to oral aspirin cardiovascular services, current infusions include heparin drip tolerating very well no new bleeding has been seen along with levo fed drip 20 mics, propofol drip and bicarb drip, respiratory secretions are minimal, bowel sounds are hypoactive, no evidence of bleeding has been seen patient to be started on tube feed and dialysis is being planned later on today as well as per discussion with the renal services, answers are all negative so far, chest x-ray shows right lower lobe subsegmental atelectasis small effusion which is stable, leukocytosis improved today compared to yesterday, critical care time spent 35 minutes 11/11/2018, patient seen eval examined during the rounds clinically patient remains sedated and intubated, currently patient is on now full ventilator support she is on assist control rate of 20 breathing 20 tidal volume of 505 of PEEP and 75% oxygen, patient remains on heparin drip which is has been started this morning, also on propofol drip 45 mics, levo fed drip is off 24 mics, patient does have been noted to have as a spasm in the upper extremity as well as lower extremity with bluish discoloration, patient has being restarted on heparin drip to optimize the levo fed to contract severe profound metabolic acidosis, reviewed medications reviewed care plan discussed with the staff at length, patient will need a arterial line attempted but unable to cannulate the femoral artery, however able to access the femoral vein a triple-lumen catheter most of the infusions are incompatible with each other, dialysis is not performed due to unstable situation and condition, urine output remains very minimal, Keofeed to be started heparin to be continued monitor hemoglobin closely, critical care time spent 45 minutes including procedure, Patient was intubated last night due to severe tachypnea and tachycardia and intermittent runs of the V. tach along with atrial fibrillation, patient has been initiated amiodarone drip as well, given that ABG could not be obtained venous blood gases are being used 11/10/2018, patient seen eval reexamined during the rounds clinically patient has a not much change from baseline has been transfused 1 unit of packed RBC patient to has been more lethargic but readily arousable arterial blood gas couldn't be obtained a venous blood gas has been performed continued to show respiratory acidosis combined with metabolic acidosis, patient is due for dialysis today also been planned for EGD which has been performed some gastritis has been noted with some white patches suggestive of ischemic changes cannot be excluded for details please refer to EGD note, patient remains on 7 mics of levo fed which is to be titrated down as blood pressure has improved, we will do low-dose bicarb drip as well patient did receive a dose of desmopressin earlier this morning, patient remains on BiPAP 15/10 with the FiO2 to keep saturation over 90-94%, patient remain somnolent and lethargic but readily arousable respond appropriately when awake then goes right back to sleep , patient did receive a dose of Xanax 11/08/2018, patient seen eval reexamined during the rounds clinically patient remains marginal continue require vasopressors currently patient is on 19 mics of levo fed drip, during dialysis patient had episode of the tachyarrhythmia requiring amiodarone now patient after the initial IV boluses back to sinus rhythm, hemodynamic status is overall stable but marginal, urine output remains very low, patient did tolerate the hemodialysis fairly well earlier this morning except the findings as noted to more old bleeding noted it appears to be old blood, patient is currently on desmopressin drip, also has been infused with 1 unit of packed RBC, heparin drip has been on hold since yesterday, vascular surgery has been consulted for evaluation of IVC filter as patient has deep venous thrombosis right lower extremity, sugars continue to be run on the higher side remains on insulin drip, patient is on proton pump inhibitor IV with frequent monitoring with monitoring observation her hemoglobin him to keep hemoglobin over 7 no active bleeding however has been noted by GI services has been consulted as well for GI bleed, Estrace standpoint tolerating BiPAP very well currently patient is on BiPAP with 12 of BiPAP the and 5 EPAP respiratory rate is 22 her spontaneous tidal volumes ranging in mid 400 range, she is on 40 % oxygen, arterial blood gas couldn't be drawn, labs medications and radiographic studies reviewed culture results are reviewed as well no positive cultures been seen patient remains on Zosyn, critical care time spent 35 minutes 11/07/2018, patient seen and evaluated examined during the rounds this morning critical care time spent 40 minutes, patient has removed to the ICU from medical floor as she was hypotensive with poor urine output in addition patient has been more somnolent and lethargic she did have receive a dose of Xanax on the floor, after arrival in ICU patient remains very hypotensive with tachycardia was given multiple fluid boluses to improve the hemodynamics however eventually starting the levo fed drip, patient does have 2 peripheral IVs one of them is not functioning very well, worsening of renal function has been noted the renal services planning to do hemodialysis, patient has very poor peripheral arterial disease unable to obtain ABG in addition to that very poor peripheral pulses are present, patient is arousable opens eyes follow simple commands but remains very anxious and agitated, patient eventually went up to 25 mics of levo fed drip with a systolic blood pressure ranging about 100 210, urine output has been very minimal, given that the lack of ability of IV axis will proceed with a central line however patient needed dialysis port as well will do a trilysis catheter (hemodialysis catheter with extra port), care plan discussed with the vascular surgery as well and renal services planning to do hemodialysis later on today provided hemodynamics remain stable, due to anticipated profound metabolic acidosis patient has been started on bicarb drip , patient is being kept on IV Zosyn heparin has been on hold due to procedures as well as elevated PTT labs reviewed medications reviewed radiographic studies reviewed as well 11/06/2018, patient seen eval examined during the rounds clinically patient has a been doing relatively better in terms of shortness of breath and swelling of the lower extremity patient is currently on room air however renal function continued to go up slightly and Lasix dose is being adjusted by renal service labs reviewed medications reviewed for now we'll continue IV heparin hopefully next 24-48 hours we'll switch it to oral anticoagulants 11/05/2018, patient seen eval reexamined during the rounds clinically has been doing relatively better in terms of breathing leg swelling the lower extremity is slightly better patient is on anticoagulation with IV heparin for DVT thrombosis of lower extremity on the right side also probable pulmonary embolism as well Patient presented to the hospital with worsening dyspnea and edema. Patient states she's been getting progressively short of breath over the last 1 week. She initially thought it was asthma but the symptoms did not improve with nebulized treatments. She also noticed edema in her legs. She states she does not take any diuretics at home. She admits to good urine output. No hematuria or dysuria. No vomiting or diarrhea. Oral intake has been fair. Denies use of NSAIDs. Chest CT revealed bilateral pleural effusions. Echocardiogram revealed ejection fraction of 35-40% with severe pulmonary hypertension. Currently maintained on Lasix 40 mg IV twice daily. She has been voiding. No fever or chills. Her duplex ultrasound of the lower extremity came back positive for DVT patient is now being started on IV heparin Objective - Vital Signs Vital signs: Vital Signs Temp 97.5 F L 11/20/18 08:00 Pulse 75 11/20/18 08:00 Resp 20 11/20/18 08:00 BP 103/54 11/20/18 08:00 Pulse Ox 96 11/20/18 08:00 Intake & Output 11/19/18 11/20/18 11/20/18 18:59 06:59 18:59 Intake Total 090.906 9429.731 73.367 Output Total 0 0 0 Balance 776.931 3398.731 73.367 Weight 126.6 kg Intake: IV 180 180 30 Sodium Chloride 0.9% 1, 180 180 30 000 ml @ 10 mls/hr IV . Q24H [facility] Rx#:[id number] Intake, IV Titration 107.263 427.731 12.367 Amount Heparin Sod,Pork in 0.45% 328.969 0 NaCl 25,000 unit In 0.45 % NaCl 1 250ml.bag @ 8.45 UNITS/KG/HR 9.97 mls/hr IV .Q24H [facility] Rx#: [id number] Insulin Regular 100 unit 46.880 46.055 6.127 In Sodium Chloride 0.9% 100 ml @ Per Protocol IV .Q0M [facility] Rx#:[id number] Norepinephrine 16 mg In 60.383 52.707 6.24 Sodium Chloride 0.9% 250 ml @ Titrate IV .Q0M [facility] Rx#:[id number] Tube Feeding 124 465 31 Other 90 Output: Urine 0 0 0 Other: Voiding Method Indwelling Catheter Indwelling Catheter - Exam - Constitutional General appearance: disheveled, no distress, morbidly obese, comfortable on nasal cannula - Neck Neck: normal ROM Carotids: bilateral: upstroke normal Thyroid: bilateral: normal size - Respiratory Respiratory: bilateral: CTA, few basal rales, negative: diminished, dullness - Cardiovascular Rhythm: regular Heart sounds: normal: S1, S2 - Integumentary Integumentary: normal turgor Abdomen soft - Neurologic Neurologic: CNII-XII intact, opens eyes does make eye contact but remains nonverbal and noncommunicative - Musculoskeletal Musculoskeletal: the cyanosis in the fingertips have appeared to improve, however in the ischemic changes on the toes remains unchanged - Psychiatric Psychiatric: Awake does make eye contact - Labs CBC & Chem 7: 11/20/18 04:56 11/20/18 04:56 Labs: Abnormal Lab Results - Last 24 Hours (Table) 11/19/18 11/19/18 11/19/18 Range/Units 10:46 12:04 13:30 RBC (3.80-5.40) m/uL Hgb (11.4-16.0) gm/dL Hct (34.0-46.0) % MCHC (31.0-37.0) g/dL RDW (11.5-15.5) % Neutrophils # (Manual) (1.3-7.7) k/uL Lymphocytes # (Manual) (1.0-4.8) k/uL Metamyelocytes # (Man) (0) k/uL Nucleated RBCs (0-0) /100 WBC APTT (22.0-30.0) sec ABG pH (7.35-7.45) ABG Total CO2 (19-24) mmol/L ABG O2 Saturation (94-97) % Sodium (137-145) mmol/L BUN (7-17) mg/dL Creatinine (0.52-1.04) mg/dL Glucose (74-99) mg/dL POC Glucose (mg/dL) 203 H 189 H 173 H (75-99) mg/dL Calcium (8.4-10.2) mg/dL Ionized Calcium Nasreen (4.5-5.3) mg/dL Magnesium (1.6-2.3) mg/dL 11/19/18 11/19/18 11/19/18 Range/Units 14:03 15:32 16:10 RBC (3.80-5.40) m/uL Hgb (11.4-16.0) gm/dL Hct (34.0-46.0) % MCHC (31.0-37.0) g/dL RDW (11.5-15.5) % Neutrophils # (Manual) (1.3-7.7) k/uL Lymphocytes # (Manual) (1.0-4.8) k/uL Metamyelocytes # (Man) (0) k/uL Nucleated RBCs (0-0) /100 WBC APTT (22.0-30.0) sec ABG pH (7.35-7.45) ABG Total CO2 (19-24) mmol/L ABG O2 Saturation (94-97) % Sodium (137-145) mmol/L BUN (7-17) mg/dL Creatinine (0.52-1.04) mg/dL Glucose (74-99) mg/dL POC Glucose (mg/dL) 168 H 151 H 149 H (75-99) mg/dL Calcium (8.4-10.2) mg/dL Ionized Calcium Nasreen (4.5-5.3) mg/dL Magnesium (1.6-2.3) mg/dL 11/19/18 11/19/18 11/19/18 Range/Units 17:03 18:04 19:03 RBC (3.80-5.40) m/uL Hgb (11.4-16.0) gm/dL Hct (34.0-46.0) % MCHC (31.0-37.0) g/dL RDW (11.5-15.5) % Neutrophils # (Manual) (1.3-7.7) k/uL Lymphocytes # (Manual) (1.0-4.8) k/uL Metamyelocytes # (Man) (0) k/uL Nucleated RBCs (0-0) /100 WBC APTT (22.0-30.0) sec ABG pH (7.35-7.45) ABG Total CO2 (19-24) mmol/L ABG O2 Saturation (94-97) % Sodium (137-145) mmol/L BUN (7-17) mg/dL Creatinine (0.52-1.04) mg/dL Glucose (74-99) mg/dL POC Glucose (mg/dL) 155 H 170 H 165 H (75-99) mg/dL Calcium (8.4-10.2) mg/dL Ionized Calcium Nasreen (4.5-5.3) mg/dL Magnesium (1.6-2.3) mg/dL 11/19/18 11/19/18 11/19/18 Range/Units 20:01 21:03 21:55 RBC (3.80-5.40) m/uL Hgb (11.4-16.0) gm/dL Hct (34.0-46.0) % MCHC (31.0-37.0) g/dL RDW (11.5-15.5) % Neutrophils # (Manual) (1.3-7.7) k/uL Lymphocytes # (Manual) (1.0-4.8) k/uL Metamyelocytes # (Man) (0) k/uL Nucleated RBCs (0-0) /100 WBC APTT (22.0-30.0) sec ABG pH (7.35-7.45) ABG Total CO2 (19-24) mmol/L ABG O2 Saturation (94-97) % Sodium (137-145) mmol/L BUN (7-17) mg/dL Creatinine (0.52-1.04) mg/dL Glucose (74-99) mg/dL POC Glucose (mg/dL) 163 H 205 H 171 H (75-99) mg/dL Calcium (8.4-10.2) mg/dL Ionized Calcium Nasreen (4.5-5.3) mg/dL Magnesium (1.6-2.3) mg/dL 11/19/18 11/20/18 11/20/18 Range/Units 22:56 00:08 01:03 RBC (3.80-5.40) m/uL Hgb (11.4-16.0) gm/dL Hct (34.0-46.0) % MCHC (31.0-37.0) g/dL RDW (11.5-15.5) % Neutrophils # (Manual) (1.3-7.7) k/uL Lymphocytes # (Manual) (1.0-4.8) k/uL Metamyelocytes # (Man) (0) k/uL Nucleated RBCs (0-0) /100 WBC APTT (22.0-30.0) sec ABG pH (7.35-7.45) ABG Total CO2 (19-24) mmol/L ABG O2 Saturation (94-97) % Sodium (137-145) mmol/L BUN (7-17) mg/dL Creatinine (0.52-1.04) mg/dL Glucose (74-99) mg/dL POC Glucose (mg/dL) 151 H 114 H 168 H (75-99) mg/dL Calcium (8.4-10.2) mg/dL Ionized Calcium Nasreen (4.5-5.3) mg/dL Magnesium (1.6-2.3) mg/dL 11/20/18 11/20/18 11/20/18 Range/Units 02:01 02:59 04:01 RBC (3.80-5.40) m/uL Hgb (11.4-16.0) gm/dL Hct (34.0-46.0) % MCHC (31.0-37.0) g/dL RDW (11.5-15.5) % Neutrophils # (Manual) (1.3-7.7) k/uL Lymphocytes # (Manual) (1.0-4.8) k/uL Metamyelocytes # (Man) (0) k/uL Nucleated RBCs (0-0) /100 WBC APTT (22.0-30.0) sec ABG pH (7.35-7.45) ABG Total CO2 (19-24) mmol/L ABG O2 Saturation (94-97) % Sodium (137-145) mmol/L BUN (7-17) mg/dL Creatinine (0.52-1.04) mg/dL Glucose (74-99) mg/dL POC Glucose (mg/dL) 114 H 164 H 199 H (75-99) mg/dL Calcium (8.4-10.2) mg/dL Ionized Calcium Nasreen (4.5-5.3) mg/dL Magnesium (1.6-2.3) mg/dL 11/20/18 11/20/18 11/20/18 Range/Units 04:56 04:56 04:56 RBC 2.37 L (3.80-5.40) m/uL Hgb 7.1 L (11.4-16.0) gm/dL Hct 23.3 L (34.0-46.0) % MCHC 30.6 L (31.0-37.0) g/dL RDW 22.2 H (11.5-15.5) % Neutrophils # (Manual) 8.10 H (1.3-7.7) k/uL Lymphocytes # (Manual) 0.63 L (1.0-4.8) k/uL Metamyelocytes # (Man) 0.09 H (0) k/uL Nucleated RBCs 4 H (0-0) /100 WBC APTT 129.9 H* (22.0-30.0) sec ABG pH (7.35-7.45) ABG Total CO2 (19-24) mmol/L ABG O2 Saturation (94-97) % Sodium 133 L (137-145) mmol/L BUN 71 H (7-17) mg/dL Creatinine 4.85 H (0.52-1.04) mg/dL Glucose 200 H (74-99) mg/dL POC Glucose (mg/dL) (75-99) mg/dL Calcium 7.7 L (8.4-10.2) mg/dL Ionized Calcium Nasreen 4.3 L (4.5-5.3) mg/dL Magnesium 2.6 H (1.6-2.3) mg/dL 11/20/18 11/20/18 11/20/18 Range/Units 04:57 04:58 06:17 RBC (3.80-5.40) m/uL Hgb (11.4-16.0) gm/dL Hct (34.0-46.0) % MCHC (31.0-37.0) g/dL RDW (11.5-15.5) % Neutrophils # (Manual) (1.3-7.7) k/uL Lymphocytes # (Manual) (1.0-4.8) k/uL Metamyelocytes # (Man) (0) k/uL Nucleated RBCs (0-0) /100 WBC APTT (22.0-30.0) sec ABG pH 7.34 L (7.35-7.45) ABG Total CO2 26 H (19-24) mmol/L ABG O2 Saturation 98.0 H (94-97) % Sodium (137-145) mmol/L BUN (7-17) mg/dL Creatinine (0.52-1.04) mg/dL Glucose (74-99) mg/dL POC Glucose (mg/dL) 218 H 198 H (75-99) mg/dL Calcium (8.4-10.2) mg/dL Ionized Calcium Nasreen (4.5-5.3) mg/dL Magnesium (1.6-2.3) mg/dL 11/20/18 11/20/18 11/20/18 Range/Units 07:04 08:09 09:25 RBC (3.80-5.40) m/uL Hgb (11.4-16.0) gm/dL Hct (34.0-46.0) % MCHC (31.0-37.0) g/dL RDW (11.5-15.5) % Neutrophils # (Manual) (1.3-7.7) k/uL Lymphocytes # (Manual) (1.0-4.8) k/uL Metamyelocytes # (Man) (0) k/uL Nucleated RBCs (0-0) /100 WBC APTT (22.0-30.0) sec ABG pH (7.35-7.45) ABG Total CO2 (19-24) mmol/L ABG O2 Saturation (94-97) % Sodium (137-145) mmol/L BUN (7-17) mg/dL Creatinine (0.52-1.04) mg/dL Glucose (74-99) mg/dL POC Glucose (mg/dL) 179 H 173 H 153 H (75-99) mg/dL Calcium (8.4-10.2) mg/dL Ionized Calcium Nasreen (4.5-5.3) mg/dL Magnesium (1.6-2.3) mg/dL Microbiology - Last 24 Hours (Table) 11/16/18 08:00 Stool Culture - Final Stool Assessment and Plan Assessment: Acute respiratory failure likely multifactorial successfully weaned and extubated Altered mental status and confusion overall remains unchanged likely related to multiple comorbidities and pathologies Intermittent episodes of wide complex tachycardia, amiodarone is being adjusted as noted above Acute on chronic renal failure and anuric, on hemodialysis Runs of the atrial fibrillation and tachyarrhythmia and wide complex tachycardia , now patient is back in sinus rhythm, amiodarone has been oral Acute respiratory failure multifactorial due to profound metabolic acidosis along with arrhythmia and congestive heart failure likely biventricular failure and pulmonary embolism Severe sepsis on broad-spectrum antibiotics, possible right lower lobe pneumonia cannot be excluded less likely aspiration related as patient has a good gag flex GI bleed of unclear source status post blood transfusion, hemoglobin has been stable now no evidence of active bleeding has been seen on IV heparin Altered mental status and metabolic encephalopathy likely multifactorial related to renal failure Deep venous thrombosis of right lower extremity and possible pulmonary embolism 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 Small bilateral pleural effusion more so on the right side compared to left side Acute blood loss anemia Non-STEMI Plan: Continue intermittent pain medications avoid benzodiazepine Successfully weaned and extubated Anticoagulation currently is being continued in the form of IV heparin, tolerating it fairly well We will defer placement of IVC filter to vascular surgery Status post PICC line by IR Continue hemodialysis as tolerated per renal service Blood transfusion as needed keep hemoglobin over 7 Optimize therapy for heart failure Monitor renal functions closely Further recommendations pending plan of care as per clinical response of the patient Taper levo fed drip as tolerated We'll continue to taper down the pressors as tolerated Continue to hold tube feed , speech to do swallow evaluation once more stable PT OT evaluation Time with Patient: Greater than 30
[2018-11-20 10:26] LABS: Glucose,Whole Blood 138 mg/dL (75-99)
--- NOTE | 2018-11-20 10:37 | P.PN ---
Subjective Progress Note Date: 11/20/18 Seen and examined for the follow-up of acute kidney injury. Still oliguric. Extubated this morning. Currently on 4 mics of Levophed. Sleepy. Objective - Vital Signs Vital signs: Vital Signs Temp 97.5 F L 11/20/18 08:00 Pulse 75 11/20/18 08:00 Resp 20 11/20/18 08:00 BP 103/54 11/20/18 08:00 Pulse Ox 96 11/20/18 08:00 Intake & Output 11/19/18 11/20/18 11/20/18 18:59 06:59 18:59 Intake Total 771.884 6390.731 88.517 Output Total 0 0 0 Balance 264.467 2088.731 88.517 Weight 126.6 kg Intake: IV 180 180 30 Sodium Chloride 0.9% 1, 180 180 30 000 ml @ 10 mls/hr IV . Q24H [facility] Rx#:[id number] Intake, IV Titration 107.263 427.731 27.517 Amount Heparin Sod,Pork in 0.45% 328.969 0 NaCl 25,000 unit In 0.45 % NaCl 1 250ml.bag @ 8.45 UNITS/KG/HR 9.97 mls/hr IV .Q24H [facility] Rx#: [id number] Insulin Regular 100 unit 46.880 46.055 21.277 In Sodium Chloride 0.9% 100 ml @ Per Protocol IV .Q0M [facility] Rx#:[id number] Norepinephrine 16 mg In 60.383 52.707 6.24 Sodium Chloride 0.9% 250 ml @ Titrate IV .Q0M [facility] Rx#:[id number] Tube Feeding 124 465 31 Other 90 Output: Urine 0 0 0 Other: Voiding Method Indwelling Catheter Indwelling Catheter - Exam No acute distress S1-S2 heard Basal crackles Edema 3+. - Labs CBC & Chem 7: 11/20/18 04:56 11/20/18 04:56 Labs: Abnormal Lab Results - Last 24 Hours (Table) 11/19/18 11/19/18 11/19/18 Range/Units 10:46 12:04 13:30 RBC (3.80-5.40) m/uL Hgb (11.4-16.0) gm/dL Hct (34.0-46.0) % MCHC (31.0-37.0) g/dL RDW (11.5-15.5) % Neutrophils # (Manual) (1.3-7.7) k/uL Lymphocytes # (Manual) (1.0-4.8) k/uL Metamyelocytes # (Man) (0) k/uL Nucleated RBCs (0-0) /100 WBC APTT (22.0-30.0) sec ABG pH (7.35-7.45) ABG Total CO2 (19-24) mmol/L ABG O2 Saturation (94-97) % Sodium (137-145) mmol/L BUN (7-17) mg/dL Creatinine (0.52-1.04) mg/dL Glucose (74-99) mg/dL POC Glucose (mg/dL) 203 H 189 H 173 H (75-99) mg/dL Calcium (8.4-10.2) mg/dL Ionized Calcium Nasreen (4.5-5.3) mg/dL Magnesium (1.6-2.3) mg/dL 11/19/18 11/19/18 11/19/18 Range/Units 14:03 15:32 16:10 RBC (3.80-5.40) m/uL Hgb (11.4-16.0) gm/dL Hct (34.0-46.0) % MCHC (31.0-37.0) g/dL RDW (11.5-15.5) % Neutrophils # (Manual) (1.3-7.7) k/uL Lymphocytes # (Manual) (1.0-4.8) k/uL Metamyelocytes # (Man) (0) k/uL Nucleated RBCs (0-0) /100 WBC APTT (22.0-30.0) sec ABG pH (7.35-7.45) ABG Total CO2 (19-24) mmol/L ABG O2 Saturation (94-97) % Sodium (137-145) mmol/L BUN (7-17) mg/dL Creatinine (0.52-1.04) mg/dL Glucose (74-99) mg/dL POC Glucose (mg/dL) 168 H 151 H 149 H (75-99) mg/dL Calcium (8.4-10.2) mg/dL Ionized Calcium Nasreen (4.5-5.3) mg/dL Magnesium (1.6-2.3) mg/dL 11/19/18 11/19/18 11/19/18 Range/Units 17:03 18:04 19:03 RBC (3.80-5.40) m/uL Hgb (11.4-16.0) gm/dL Hct (34.0-46.0) % MCHC (31.0-37.0) g/dL RDW (11.5-15.5) % Neutrophils # (Manual) (1.3-7.7) k/uL Lymphocytes # (Manual) (1.0-4.8) k/uL Metamyelocytes # (Man) (0) k/uL Nucleated RBCs (0-0) /100 WBC APTT (22.0-30.0) sec ABG pH (7.35-7.45) ABG Total CO2 (19-24) mmol/L ABG O2 Saturation (94-97) % Sodium (137-145) mmol/L BUN (7-17) mg/dL Creatinine (0.52-1.04) mg/dL Glucose (74-99) mg/dL POC Glucose (mg/dL) 155 H 170 H 165 H (75-99) mg/dL Calcium (8.4-10.2) mg/dL Ionized Calcium Nasreen (4.5-5.3) mg/dL Magnesium (1.6-2.3) mg/dL 11/19/18 11/19/18 11/19/18 Range/Units 20:01 21:03 21:55 RBC (3.80-5.40) m/uL Hgb (11.4-16.0) gm/dL Hct (34.0-46.0) % MCHC (31.0-37.0) g/dL RDW (11.5-15.5) % Neutrophils # (Manual) (1.3-7.7) k/uL Lymphocytes # (Manual) (1.0-4.8) k/uL Metamyelocytes # (Man) (0) k/uL Nucleated RBCs (0-0) /100 WBC APTT (22.0-30.0) sec ABG pH (7.35-7.45) ABG Total CO2 (19-24) mmol/L ABG O2 Saturation (94-97) % Sodium (137-145) mmol/L BUN (7-17) mg/dL Creatinine (0.52-1.04) mg/dL Glucose (74-99) mg/dL POC Glucose (mg/dL) 163 H 205 H 171 H (75-99) mg/dL Calcium (8.4-10.2) mg/dL Ionized Calcium Nasreen (4.5-5.3) mg/dL Magnesium (1.6-2.3) mg/dL 11/19/18 11/20/18 11/20/18 Range/Units 22:56 00:08 01:03 RBC (3.80-5.40) m/uL Hgb (11.4-16.0) gm/dL Hct (34.0-46.0) % MCHC (31.0-37.0) g/dL RDW (11.5-15.5) % Neutrophils # (Manual) (1.3-7.7) k/uL Lymphocytes # (Manual) (1.0-4.8) k/uL Metamyelocytes # (Man) (0) k/uL Nucleated RBCs (0-0) /100 WBC APTT (22.0-30.0) sec ABG pH (7.35-7.45) ABG Total CO2 (19-24) mmol/L ABG O2 Saturation (94-97) % Sodium (137-145) mmol/L BUN (7-17) mg/dL Creatinine (0.52-1.04) mg/dL Glucose (74-99) mg/dL POC Glucose (mg/dL) 151 H 114 H 168 H (75-99) mg/dL Calcium (8.4-10.2) mg/dL Ionized Calcium Nasreen (4.5-5.3) mg/dL Magnesium (1.6-2.3) mg/dL 11/20/18 11/20/18 11/20/18 Range/Units 02:01 02:59 04:01 RBC (3.80-5.40) m/uL Hgb (11.4-16.0) gm/dL Hct (34.0-46.0) % MCHC (31.0-37.0) g/dL RDW (11.5-15.5) % Neutrophils # (Manual) (1.3-7.7) k/uL Lymphocytes # (Manual) (1.0-4.8) k/uL Metamyelocytes # (Man) (0) k/uL Nucleated RBCs (0-0) /100 WBC APTT (22.0-30.0) sec ABG pH (7.35-7.45) ABG Total CO2 (19-24) mmol/L ABG O2 Saturation (94-97) % Sodium (137-145) mmol/L BUN (7-17) mg/dL Creatinine (0.52-1.04) mg/dL Glucose (74-99) mg/dL POC Glucose (mg/dL) 114 H 164 H 199 H (75-99) mg/dL Calcium (8.4-10.2) mg/dL Ionized Calcium Nasreen (4.5-5.3) mg/dL Magnesium (1.6-2.3) mg/dL 11/20/18 11/20/18 11/20/18 Range/Units 04:56 04:56 04:56 RBC 2.37 L (3.80-5.40) m/uL Hgb 7.1 L (11.4-16.0) gm/dL Hct 23.3 L (34.0-46.0) % MCHC 30.6 L (31.0-37.0) g/dL RDW 22.2 H (11.5-15.5) % Neutrophils # (Manual) 8.10 H (1.3-7.7) k/uL Lymphocytes # (Manual) 0.63 L (1.0-4.8) k/uL Metamyelocytes # (Man) 0.09 H (0) k/uL Nucleated RBCs 4 H (0-0) /100 WBC APTT 129.9 H* (22.0-30.0) sec ABG pH (7.35-7.45) ABG Total CO2 (19-24) mmol/L ABG O2 Saturation (94-97) % Sodium 133 L (137-145) mmol/L BUN 71 H (7-17) mg/dL Creatinine 4.85 H (0.52-1.04) mg/dL Glucose 200 H (74-99) mg/dL POC Glucose (mg/dL) (75-99) mg/dL Calcium 7.7 L (8.4-10.2) mg/dL Ionized Calcium Nasreen 4.3 L (4.5-5.3) mg/dL Magnesium 2.6 H (1.6-2.3) mg/dL 11/20/18 11/20/18 11/20/18 Range/Units 04:57 04:58 06:17 RBC (3.80-5.40) m/uL Hgb (11.4-16.0) gm/dL Hct (34.0-46.0) % MCHC (31.0-37.0) g/dL RDW (11.5-15.5) % Neutrophils # (Manual) (1.3-7.7) k/uL Lymphocytes # (Manual) (1.0-4.8) k/uL Metamyelocytes # (Man) (0) k/uL Nucleated RBCs (0-0) /100 WBC APTT (22.0-30.0) sec ABG pH 7.34 L (7.35-7.45) ABG Total CO2 26 H (19-24) mmol/L ABG O2 Saturation 98.0 H (94-97) % Sodium (137-145) mmol/L BUN (7-17) mg/dL Creatinine (0.52-1.04) mg/dL Glucose (74-99) mg/dL POC Glucose (mg/dL) 218 H 198 H (75-99) mg/dL Calcium (8.4-10.2) mg/dL Ionized Calcium Nasreen (4.5-5.3) mg/dL Magnesium (1.6-2.3) mg/dL 11/20/18 11/20/18 11/20/18 Range/Units 07:04 08:09 09:25 RBC (3.80-5.40) m/uL Hgb (11.4-16.0) gm/dL Hct (34.0-46.0) % MCHC (31.0-37.0) g/dL RDW (11.5-15.5) % Neutrophils # (Manual) (1.3-7.7) k/uL Lymphocytes # (Manual) (1.0-4.8) k/uL Metamyelocytes # (Man) (0) k/uL Nucleated RBCs (0-0) /100 WBC APTT (22.0-30.0) sec ABG pH (7.35-7.45) ABG Total CO2 (19-24) mmol/L ABG O2 Saturation (94-97) % Sodium (137-145) mmol/L BUN (7-17) mg/dL Creatinine (0.52-1.04) mg/dL Glucose (74-99) mg/dL POC Glucose (mg/dL) 179 H 173 H 153 H (75-99) mg/dL Calcium (8.4-10.2) mg/dL Ionized Calcium Nasreen (4.5-5.3) mg/dL Magnesium (1.6-2.3) mg/dL 11/20/18 Range/Units 10:14 RBC (3.80-5.40) m/uL Hgb (11.4-16.0) gm/dL Hct (34.0-46.0) % MCHC (31.0-37.0) g/dL RDW (11.5-15.5) % Neutrophils # (Manual) (1.3-7.7) k/uL Lymphocytes # (Manual) (1.0-4.8) k/uL Metamyelocytes # (Man) (0) k/uL Nucleated RBCs (0-0) /100 WBC APTT (22.0-30.0) sec ABG pH (7.35-7.45) ABG Total CO2 (19-24) mmol/L ABG O2 Saturation (94-97) % Sodium (137-145) mmol/L BUN (7-17) mg/dL Creatinine (0.52-1.04) mg/dL Glucose (74-99) mg/dL POC Glucose (mg/dL) 138 H (75-99) mg/dL Calcium (8.4-10.2) mg/dL Ionized Calcium Nasreen (4.5-5.3) mg/dL Magnesium (1.6-2.3) mg/dL Microbiology - Last 24 Hours (Table) 11/16/18 08:00 Stool Culture - Final Stool Assessment and Plan Assessment: #1 nonoliguric acute kidney injury, currently dialysis dependent secondary to hemodynamic ATN. #2 ventilator-dependent respiratory failure currently extubated this morning #3 CKD4 secondary to diabetic nephropathy, baseline creatinine around 3.2 MG per DL. #4 volume overload. #5 hypervolemic hyponatremia 6 metabolic alkalosis Plan: #1 hemodialysis on Wednesday with 2.5 L of ultrafiltration as tolerated. #2 strict ins and outs, monitor for renal recovery. #3 avoid nephrotoxic agents and hypotensive episodes.
[2018-11-20] MEDS: DOPamine DRIP 800 MG in DEXTROSE/WATER 1 500ML.BAG IV SCH (10:47)
[2018-11-20 11:11] LABS: Glucose,Whole Blood 162 mg/dL (75-99)
[2018-11-20 12:38] LABS: Glucose,Whole Blood 127 mg/dL (75-99)
[2018-11-20 13:45] LABS: Glucose,Whole Blood 146 mg/dL (75-99)
[2018-11-20 14:40] LABS: Glucose,Whole Blood 150 mg/dL (75-99)
[2018-11-20 15:08] LABS: Glucose,Whole Blood 150 mg/dL (75-99)
[2018-11-20] MEDS: ATORVASTATIN 40 MG TAB PO SCH (16:41)
[2018-11-20 17:25] LABS: Glucose,Whole Blood 118 mg/dL (75-99)
[2018-11-20 18:27] LABS: Glucose,Whole Blood 125 mg/dL (75-99)
--- NOTE | 2018-11-20 18:47 | PN ---
PROGRESS NOTE DATE OF SERVICE: 11/20/2018. She was extubated and is complaining of some mild dyspnea. She has no chest pain. She is sleepy but arousable. PHYSICAL EXAMINATION: Her respiratory rate is 25, pulse rate of 84, temperature 98.4, blood pressure 107/58, O2 saturation on 3 L by nasal cannula is 98%. HEENT reveals no new changes. Chest reveals decreased breath sounds. Prolonged expiration with expiratory wheeze. Cardiovascular system is S1, S2. Abdomen is soft. There is 1+ pedal edema. Labs and medications were reviewed. IMPRESSION: At this time: 1. Acute respiratory failure in part due to pulmonary embolus as well as congestive heart failure. 2. Obstructive sleep apnea that is relatively untreated with cor pulmonale is likely. 3. Chronic obstructive pulmonary disease with acute exacerbation. 4. Acute tubular necrosis with acute renal failure. The patient has been extubated, continue to support her hemodynamically with fluids and pressors. Continue current medications which were reviewed. Her prognosis at this time is fair. Appreciate consultants input and intervention. MMJUAREZ / IJN: [id number] /
[2018-11-20 19:19] LABS: Glucose,Whole Blood 146 mg/dL (75-99)
[2018-11-20] MEDS: HEPARIN SOD,PORK IN 0.45% NACL 25,000 UNIT in 0.45% NACL 1 250ML.BAG IV SCH (20:35)
[2018-11-20 20:39] LABS: Glucose,Whole Blood 181 mg/dL (75-99)
[2018-11-20] MEDS: METOPROLOL TARTRATE 25 MG TAB PO SCH (21:46)
[2018-11-20] MEDS: MONTELUKAST 10 MG TAB PO SCH (21:48)
[2018-11-20 23:13] LABS: Glucose,Whole Blood 164 mg/dL (75-99)
--- NOTE | 2018-11-20 23:41 | PN ---
PROGRESS NOTE DATE OF SERVICE: 11/20/2018. REASON FOR FOLLOWUP: Pneumonia, adequate induce diarrhea. INTERVAL HISTORY: The patient is afebrile. The patient has been extubated. The patient is breathing comfortably on nasal cannula oxygen. Slightly lethargic. Did offer . No abdominal pain. No nausea, vomiting. Output in the fecal management system has decreased. PHYSICAL EXAMINATION: Blood pressure 109/43 with a pulse of 83, temperature 97.7, he is 92% on 2 L nasal cannula. GENERAL DESCRIPTION: A middle-aged female, lying in bed in no distress. RESPIRATORY SYSTEM: Unlabored breathing. Decreased breath sounds in the bases. No wheeze. HEART: S1, S2. Regular rate and rhythm. ABDOMEN: Soft, no tenderness. LABS: Hemoglobin 7.1, white count 9.0 with a BUN of 71, creatinine 4.8. White count has been normal. Stool for C difficile was negative. DIAGNOSTIC IMPRESSION AND PLAN: Patient with acute respiratory failure which is likely multifactorial, possible component of pneumonia, underlying pneumonia has been adequately treated. Sputum are negative for resistant pathogen. Blood culture negative. Currently off antibiotic therapy. The patient did have drug induced diarrhea, stool for C. dif has been negative. The patient currently on and may be added if . Continue supportive care. MMODL / IJN: [id number] /
[2018-11-21 00:37] LABS: Glucose,Whole Blood 155 mg/dL (75-99)
[2018-11-21 01:35] LABS: Glucose,Whole Blood 149 mg/dL (75-99)
[2018-11-21 03:14] LABS: Glucose,Whole Blood 150 mg/dL (75-99)
[2018-11-21] MEDS: LORazepam 2 MG/ML INJ IV PRN (04:34)
[2018-11-21 04:45] LABS: Magnesium 2.7 mg/dL (1.6-2.3); Phosphorus 7.4 mg/dL (2.5-4.5)
[2018-11-21 05:41] LABS: Glucose,Whole Blood 157 mg/dL (75-99)
--- NOTE | 2018-11-21 06:25 | P.CONS ---
History of Present Illness - Chief Complaint Medical debility - History of Present Illness I had the opportunity to see patient for inpatient rehab consultation with regard to medical debility. She was admitted to [facility] November 03 with acute respiratory failure. Seen by Dr. Gordillo and patient was has required vent which was just removed yesterday. Patient's been having problems with lethargy. Seen by Dr. Ramos for acute on chronic kidney injury. Chest x-rays followed and stable. EGD done and findings noted. PT, OT, [employer] prescribed. Previous functional history unobtainable from patient. Review of Systems Review of systems: Patient obtunded/lethargic and unable to assist with ROS. ENT: Denies sneezes or discharge. Eyes: Denies discharge or photophobia. Cardiac: Denies chest pain or palpitation. Pulmonary: No shortness of breath. Breast: Denies discharge or lumps. Gastrointestinal: Denies nausea, emesis, constipation, diarrhea. Genitourinary: Denies discharge or frequency. Musculoskeletal: Denies muscle or bone aches. Neurologic: Appears generally weak and obtunded. Endocrine: Denies shakes or sweats. Oncology: Denies cancers. Dermatologic: Denies rash, itching, pruritus. ALLERGY/immunology: Denies sneezes, rashes. Past Medical History Past Medical History: Coronary Artery Disease (CAD), COPD, Diabetes Mellitus, Deep Vein Thrombosis (DVT), Eye Disorder, Hyperlipidemia, Hypertension, Liver Disease, Musculoskeletal Disorder, Neurologic Disorder, Pulmonary Embolus (PE), Renal Disease Additional Past Medical History / Comment(s): HX DVT RT LEG, STAGE 3 KIDNEY DISEASE, CATARACTS, RUPTURED DISC L5,S1,GALLSTONES, PVD, NEUROPATHY, BALANCE ISSUES/FALLS, SEASONAL ALLERGIES, MIGRAINES, DDD C-7, DM HAS INSULIN PUMP. History of Any Multi-Drug Resistant Organisms: None Reported Past Surgical History: Back Surgery, Section, Coronary Bypass/CABG, Heart Catheterization Additional Past Surgical History / Comment(s): 06-20-15 HAD AORTA BIFEM BYPASS AT [facility] IN [place], 4 VESSEL CABG 2008, LUMBAR DISECTOMY. Past Anesthesia/Blood Transfusion Reactions: Family History of Problems w/ Anesthesia, Motion Sickness, Postoperative Nausea & Vomiting (PONV) Additional Past Anesthesia/Blood Transfusion Reaction / Comm: VERTIGO. "Sister was under too long, almost ." Smoking Status: Former smoker - Past Family History Brother(s) Family Medical History: CVA/TIA Father Family Medical History: COPD, Hypertension, Myocardial Infarction ([place]) Mother Family Medical History: CVA/TIA, Deep Vein Thrombosis (DVT), Myocardial Infarction ([place]) Additional Family Medical History / Comment(s): ANUERYSM Medications and Allergies Home Medications Medication Instructions Recorded Confirmed Type Metoprolol Succinate (ER) [Toprol 50 mg PO DAILY@1600 07/18/15 11/03/18 History XL] Montelukast Sodium [Singulair] 10 mg PO HS 07/18/15 11/03/18 History Ramipril [Altace] 10 mg PO BID 07/18/15 11/03/18 History Albuterol Sulfate [Proair Hfa] 1 - 2 puff INHALATION RT-QID PRN 09/20/17 History Aspirin 325 mg PO DAILY 09/20/17 11/03/18 History Beclomethasone Dipropionate [Qvar 2 puff INHALATION RT-BID 09/20/17 11/03/18 History 80 mcg] Ergocalciferol (Vitamin D2) 50,000 unit PO FR 05/11/18 11/03/18 History [Vitamin D2] Acetaminophen Tab [Tylenol Tab] 650 mg PO Q6H PRN 11/03/18 11/03/18 History Cetirizine HCl/Pseudoephedrine 1 tab PO DAILY PRN 11/03/18 11/03/18 History [Zyrtec-D Tablet] Ferrous Sulfate [Feosol] 650 mg PO DAILY 11/03/18 11/03/18 History Insulin Aspart (For Pump) [NovoLOG 0.01 unit SQ-PUMP CONTINUOUS 11/03/18 History (For Pump)] [place]-3 Acid Ethyl Esters [Lovaza] 2 gm PO BID 11/03/18 11/03/18 History Pravastatin Sodium [Pravachol] 20 mg PO HS 11/03/18 11/03/18 History Allergies Allergy/AdvReac Type Severity Reaction Status Date / Time penicillin V Allergy BLISTERS Verified 11/03/18 15:59 ON HANDS AND FEET morphine AdvReac Nausea Verified 11/03/18 15:59 sulfamethoxazole AdvReac TOLD NOT Verified 11/03/18 15:59 [From Bactrim] TO TAKE BY KIDNEY trimethoprim [From Bactrim] AdvReac TOLD NOT Verified 11/03/18 15:59 TO TAKE BY KIDNEY Physical Exam Vitals: Vital Signs Temp Pulse Resp BP Pulse Ox 11/21/18 05:00 76 24 96/52 97 11/21/18 04:00 97.7 F 78 33 H 116/53 97 11/21/18 03:00 79 30 H 101/45 98 11/21/18 02:00 77 28 H 90/59 98 11/21/18 01:00 77 19 86/61 11/21/18 00:00 81 28 H 100/32 96 11/20/18 23:49 80 11/20/18 23:39 77 11/20/18 23:00 83 32 H 100/42 94 L 11/20/18 22:20 84 14 96/68 92 L 11/20/18 22:00 85 28 H 109/45 93 L 11/20/18 21:00 85 28 H 103/38 93 L 11/20/18 20:36 84 11/20/18 20:24 86 11/20/18 20:00 97.7 F 83 30 H 109/43 93 L 11/20/18 19:00 81 25 H 97/47 94 L 11/20/18 18:00 86 21 102/39 96 11/20/18 17:00 87 22 106/51 93 L 11/20/18 16:00 98.4 F 84 25 H 107/58 98 11/20/18 15:55 84 11/20/18 15:00 82 21 95/54 96 11/20/18 14:00 79 21 99/41 92 L 11/20/18 13:00 82 25 H 86/54 96 11/20/18 12:00 97.5 F L 82 20 103/55 94 L 11/20/18 11:47 84 11/20/18 11:43 82 11/20/18 11:00 82 21 112/59 97 11/20/18 10:00 78 22 117/60 97 11/20/18 09:00 75 20 100/58 96 11/20/18 08:00 97.5 F L 75 20 103/54 96 11/20/18 07:48 74 11/20/18 07:00 67 20 87/42 100 Intake and Output 11/20/18 11/20/18 11/21/18 14:59 22:59 06:59 Intake Total 232.169 257.976 70 Output Total 0 0 1205 Balance 232.169 257.976 -1135 Intake: IV 120 105 70 Sodium Chloride 0.9% 1, 120 105 70 000 ml @ 10 mls/hr IV . Q24H [facility] Rx#:[id number] Intake, IV Titration 50.169 152.976 Amount Heparin Sod,Pork in 0.45% 0 133.598 NaCl 25,000 unit In 0.45 % NaCl 1 250ml.bag @ 8.45 UNITS/KG/HR 9.97 mls/hr IV .Q24H [facility] Rx#: [id number] Insulin Regular 100 unit 30.569 14.578 In Sodium Chloride 0.9% 100 ml @ Per Protocol IV .Q0M [facility] Rx#:[id number] Norepinephrine 16 mg In 19.600 4.8 Sodium Chloride 0.9% 250 ml @ Titrate IV .Q0M [facility] Rx#:[id number] Oral 0 Tube Feeding 62 Output: Urine 0 0 5 Stool 1200 Other: Voiding Method Indwelling Catheter Indwelling Catheter Indwelling Catheter # Voids 0 0 Weight 132 kg Skin: Good color, texture, turgor. General: Obese build and lethargic appearance. Head: Normocephalic, atraumatic. Eyes: Symmetric. Pupils equal round. Ears: Symmetric. Hearing within normal limits. Mouth: Clear. Neck: Supple. Carotid without bruit. Cardiac: Regular rate and rhythm. Lungs: Clear anteriorly and posteriorly. Abdomen: Soft active nontender. Obese. Extremities: Normal tone. Neurological: Mental status: Alert, cooperative, pleasant. Cranial nerves: Symmetric facial tone and trapezius. Motor: Response to noxious stimulus locally, poorly. Sensation: Intact throughout as noted above. DTRs: Symmetric and equal throughout. Mobility: Unable to assist with bed mobility. Results CBC & Chem 7: 11/20/18 04:56 11/20/18 04:56 Labs: Abnormal Lab Results - Last 24 Hours (Table) 11/20/18 11/20/18 11/20/18 Range/Units 06:17 07:04 08:09 APTT (22.0-30.0) sec POC Glucose (mg/dL) 198 H 179 H 173 H (75-99) mg/dL Phosphorus (2.5-4.5) mg/dL Magnesium (1.6-2.3) mg/dL 11/20/18 11/20/18 11/20/18 Range/Units 09:25 10:14 11:00 APTT (22.0-30.0) sec POC Glucose (mg/dL) 153 H 138 H 162 H (75-99) mg/dL Phosphorus (2.5-4.5) mg/dL Magnesium (1.6-2.3) mg/dL 11/20/18 11/20/18 11/20/18 Range/Units 12:14 13:15 13:16 APTT 66.1 H (22.0-30.0) sec POC Glucose (mg/dL) 127 H 146 H (75-99) mg/dL Phosphorus (2.5-4.5) mg/dL Magnesium (1.6-2.3) mg/dL 11/20/18 11/20/18 11/20/18 Range/Units 14:17 14:56 17:11 APTT (22.0-30.0) sec POC Glucose (mg/dL) 150 H 150 H 118 H (75-99) mg/dL Phosphorus (2.5-4.5) mg/dL Magnesium (1.6-2.3) mg/dL 11/20/18 11/20/18 11/20/18 Range/Units 18:04 19:04 20:27 APTT (22.0-30.0) sec POC Glucose (mg/dL) 125 H 146 H 181 H (75-99) mg/dL Phosphorus (2.5-4.5) mg/dL Magnesium (1.6-2.3) mg/dL 11/20/18 11/21/18 11/21/18 Range/Units 23:00 00:26 01:23 APTT (22.0-30.0) sec POC Glucose (mg/dL) 164 H 155 H 149 H (75-99) mg/dL Phosphorus (2.5-4.5) mg/dL Magnesium (1.6-2.3) mg/dL 11/21/18 11/21/18 11/21/18 Range/Units 03:03 04:20 05:30 APTT (22.0-30.0) sec POC Glucose (mg/dL) 150 H 157 H (75-99) mg/dL Phosphorus 7.4 H (2.5-4.5) mg/dL Magnesium 2.7 H (1.6-2.3) mg/dL Microbiology - Last 24 Hours (Table) 11/16/18 08:00 Stool Culture - Final Stool Assessment and Plan (1) Acute on chronic renal failure Current Visit: Yes Status: Acute Code(s): N17.9 - ACUTE KIDNEY FAILURE, UNSPECIFIED; N18.9 - CHRONIC KIDNEY DISEASE, UNSPECIFIED SNOMED Code(s): 626607365 (2) Anemia, blood loss Current Visit: Yes Status: Acute Code(s): D50.0 - IRON DEFICIENCY ANEMIA SECONDARY TO BLOOD LOSS (CHRONIC) SNOMED Code(s): 603946344 (3) Atrial fibrillation with RVR Current Visit: Yes Status: Acute Code(s): I48.91 - UNSPECIFIED ATRIAL FIBRILLATION SNOMED Code(s): 818478739796159 (4) Non-STEMI (non-ST elevated myocardial infarction) Current Visit: Yes Status: Acute Code(s): I21.4 - NON-ST ELEVATION (NSTEMI) MYOCARDIAL INFARCTION SNOMED Code(s): 56111510 Plan: Impression: As noted above Include acute on chronic respiratory failure. Comments and plan: PT, OT, [employer] prescribed. Rehab prognosis currently guarded.
--- NOTE | 2018-11-21 07:04 | XR ---
EXAMINATION TYPE: XR chest 1V portable DATE OF EXAM: 11/21/2018 CLINICAL HISTORY: Difficulty breathing progress study. TECHNIQUE: Single AP portable semiupright view of the chest is obtained. COMPARISON: Chest x-ray from one day earlier and older studies. FINDINGS: There is interval extubation with removal of endotracheal and orogastric tubes. Overlying sternal wires and mediastinal clips are redemonstrated. There is stable right-sided PICC line. There is stable mild cardiomegaly with central vascular congestion and small bilateral pleural effusions wi th associated bibasilar atelectasis and/or infiltrates. Osseous structures are intact. IMPRESSION: Suspect CHF exacerbation as there is mild cardiomegaly with mild central vascular congest ion and small bilateral pleural effusions all redemonstrated. Interval extubation noted.
[2018-11-21] MEDS: PROPOFOL 1,000 MG in EMPTY BAG 1 BAG IV SCH (07:55)
--- NOTE | 2018-11-21 08:18 | PN ---
PROGRESS NOTE Mrs. Monahan is a 58-year-old female with a history of coronary artery disease, history of peripheral vascular disease, end-stage renal disease on hemodialysis, who was admitted with progressive dyspnea, nausea, vomiting and abdominal pain. She was extubated insurance analyst yesterday, but early this morning she is nonresponsive, obtunded and tachypneic. She will be placed on the BiPAP and may require repeat intubation. She was in sinus mechanism yesterday without any evidence of ventricular tachycardia or atrial fibrillation. This morning, she is bradycardic. There is no episode of ventricular tachycardia noted today. She has continued to be on amiodarone 400 mg twice a day, Lopressor 25 mg twice a day, aspirin 81 mg daily and Lipitor 40 mg daily. PHYSICAL EXAMINATION: She is a 58-year-old female, obtunded and not answering question, tachypneic. Blood pressure running in the high 90s and low 100s. She is on low-dose Levophed. Heart rate in the 40s. LUNGS: A few crackles at the bases. HEART: Regular rate and rhythm. S1, S2. No S3 with systolic murmur. ABDOMEN: Soft, distended. Positive bowel sounds. EXTREMITIES: +2 edema with evidence of peripheral vascular disease and blackened toes. IMPRESSION: 1. Progressive respiratory failure recurrent, patient most likely will require repeat intubation. 2. History of coronary artery disease, status post coronary artery bypass grafting. 3. History of peripheral vascular disease, severe. 4. Ventricular ectopic activity with nonsustained ventricular tachycardia, resolved. 5. Anemia. 6. Atrial fibrillation, resolved. RECOMMENDATION: I will cut down the dose of her amiodarone to 200 mg twice a day. Continue the beta idalmis. Unfortunately, the prognosis is quite poor, especially with the recurrent respiratory failure. MMODL / IJN: [id number] /
--- NOTE | 2018-11-21 08:31 | XR ---
EXAMINATION TYPE: XR chest 1V portable DATE OF EXAM: 11/21/2018 CLINICAL HISTORY: Difficulty breathing had to be intubated. TECHNIQUE: Single AP portable semiupright view of the chest is obtained. COMPARISON: Chest x-ray from earlier today and older studies FINDINGS: There is new endotracheal tube terminating at aortic knob level approximately 1 to 2 cm ab ove nieves, recommend pulling back 2 to 3 cm to be in more ideal position. There is new orogastric tu be projecting below diaphragm. There is stable right-sided PICC line and right internal jugular cordis sheath. Overlying sternal wir es and mediastinal clips are redemonstrated. Overlying EKG leads are again seen. There is persistent mild cardiomegaly with atherosclerotic thoracic aorta. There is persistent bibasilar opacity and perh aps mild central vascular congestion. Osseous structures are intact. IMPRESSION: 1. New ET and OGT identified. ET above nieves 1-2 centimeters, recommend pulling back 2 to 3 cm to be in more ideal position. 2. Persistent mild cardiomegaly with mild central vascular congestion and suspected small bilateral p leural effusions, correlate for CHF exacerbation. Associated bibasilar atelectasis and/or infiltrate are redemonstrated.
[2018-11-21 08:52] LABS: Glucose,Whole Blood 165 mg/dL (75-99)
[2018-11-21 09:02] LABS: ABG Base Excess -4.2 mmol/L; ABG HCO3 22 mmol/L (21-25); ABG PCO2 42 mmHg (35-45); ABG PH 7.32 (7.35-7.45); ABG PO2 >400 mmHg (83-108); ABG TCO2 23 mmol/L (19-24)
[2018-11-21] MEDS ORDERED: CEFEPIME 1 GM in SODIUM CHLORIDE 0.9% 50 ML IVPB SCH (09:15)
[2018-11-21 09:39] LABS: Glucose,Whole Blood 172 mg/dL (75-99)
[2018-11-21] MEDS: LACTATED RINGERS 1,000 ML IV SCH ×2 (09:49→10:13)
[2018-11-21] MEDS ORDERED: ROCURONIUM BROMIDE 10 MG/ML 10 ML VIAL IV ONE (09:53)
[2018-11-21] MEDS ORDERED: PROPOFOL 10 MG/ML 20 ML VIAL IV ONE (09:53)
[2018-11-21] MEDS: metroNIDAZOLE-NS PMX 500 MG in SALINE 1 100ML.BAG IVPB SCH ×3 (10:12→23:27)
[2018-11-21] MEDS: INSULIN REGULAR 100 UNIT in SODIUM CHLORIDE 0.9% 100 ML IV SCH (10:15)
[2018-11-21 10:27] LABS: Glucose,Whole Blood 135 mg/dL (75-99)
[2018-11-21 10:41] LABS: Anisocytosis Moderate; Hypochromasia Marked; MCH 30.1 pg (25.0-35.0); MCHC 30.7 g/dL (31.0-37.0); MCV 98.2 fL (80.0-100.0); Macrocytosis Moderate; Mean Platelet Volume 7.5; Platelet Count 355 k/uL (150-450); Poikilocytosis Slight; RBC 2.14 m/uL (3.80-5.40); RDW 21.5 % (11.5-15.5); WBC 14.2 k/uL (3.8-10.6)
[2018-11-21 10:43] LABS: HGB 6.4 gm/dL (11.4-16.0)
[2018-11-21 11:08] LABS: Albumin 2.3 g/dL (3.5-5.0); Total Bilirubin 0.8 mg/dL (0.2-1.3); Total Protein 4.6 g/dL (6.3-8.2)
[2018-11-21 11:18] LABS: Troponin I 7.81 ng/mL (0.000-0.034)
[2018-11-21 11:19] LABS: INR 1.2 (<1.2); Prothrombin Time 12.5 sec (9.0-12.0)
[2018-11-21 11:26] LABS: Glucose,Whole Blood 138 mg/dL (75-99)
[2018-11-21 11:27] LABS: Partial Thromboplastin Time 121.2 sec (22.0-30.0)
--- NOTE | 2018-11-21 11:38 | P.PN ---
Subjective Progress Note Date: 11/21/18 Interval history: 11/21/18- patient is being seen examined and evaluated today on rounds while covering for Dr. Bandar Paul. This patient is admitted to the hospital with altered mental status likely related to the acute renal failure, hypotension, severe sepsis, hypertension, A. fib with RVR, right lower extremity venous thrombosis, chronic intermittent thromboembolism, pulmonary hypertension, biventricular failure, acute on chronic systolic heart failure, acute on chronic renal failure stage IV, small bilateral pleural effusions, morbid obesity. The patient is on propofol currently on hold to assess mentation. And has been on a heparin drip, levophed, and insulin drip as well. The patient was extubated yesterday and did require reintubation overnight. She is on mechanical ventilation assist control mode with a respiratory rate of 20, tidal volume of 500, FiO2 100% and a PEEP of 5. Hemodialysis is currently on hold per nursing staff.. Money Market Dealer is following this patient closely as well. Hemoglobin is down to 6.4 today. Troponin is elevated at 7.810 cardiology is following the patient closely. All labs and reports have been reviewed. Prognosis is guarded. Objective - Vital Signs Vital signs: Vital Signs Temp 98.2 F 11/21/18 08:00 Pulse 67 11/21/18 11:00 Resp 20 11/21/18 11:00 BP 100/76 11/21/18 11:00 Pulse Ox 100 11/21/18 11:00 Intake & Output 11/20/18 11/21/18 11/21/18 18:59 06:59 18:59 Intake Total 308.685 261.460 47.588 Output Total 0 1205 5 Balance 308.685 -943.540 42.588 Weight 132 kg 132 kg Intake: IV 180 125 20 Sodium Chloride 0.9% 1, 180 125 20 000 ml @ 10 mls/hr IV . Q24H [facility] Rx#:[id number] Intake, IV Titration 66.685 136.460 27.588 Amount Heparin Sod,Pork in 0.45% 0 133.598 NaCl 25,000 unit In 0.45 % NaCl 1 250ml.bag @ 8.45 UNITS/KG/HR 9.97 mls/hr IV .Q24H [facility] Rx#: [id number] Insulin Regular 100 unit 42.285 2.862 10.428 In Sodium Chloride 0.9% 100 ml @ Per Protocol IV .Q0M [facility] Rx#:[id number] Norepinephrine 16 mg In 24.400 0 Sodium Chloride 0.9% 250 ml @ Titrate IV .Q0M [facility] Rx#:[id number] Propofol 1,000 mg In 17.16 Empty Bag 1 bag @ Titrate IV .Q0M [facility] Rx#: [id number] Oral 0 Tube Feeding 62 Output: Urine 0 5 5 Stool 1200 Other: Voiding Method Indwelling Catheter Indwelling Catheter # Voids 0 - Exam GENERAL EXAM: On mechanical ventilation with propofol for sedation HEAD: Normocephalic. EYES: Normal reaction of pupils, equal size. NOSE: Clear with pink turbinates. THROAT: No erythema or exudates. NECK: No masses, no JVD. CHEST: No chest wall deformity. LUNGS: Equal air entry with no crackles, wheeze, rhonchi or dullness. CVS: S1 and S2 normal with no audible mumurs, regular rhythm. ABDOMEN: No hepatosplenomegaly, normal bowel sounds, no guarding or rigidity. EXTREMITIES: No edema noted, pedal pulses palpable. CENTRAL NERVOUS SYSTEM: Unable to assess, on sedation - Labs CBC & Chem 7: 11/21/18 10:20 11/21/18 10:20 Labs: Abnormal Lab Results - Last 24 Hours (Table) 11/20/18 11/20/18 11/20/18 Range/Units 12:14 13:15 13:16 WBC (3.8-10.6) k/uL RBC (3.80-5.40) m/uL Hgb (11.4-16.0) gm/dL Hct (34.0-46.0) % MCHC (31.0-37.0) g/dL RDW (11.5-15.5) % PT (9.0-12.0) sec INR (<1.2) APTT 66.1 H (22.0-30.0) sec ABG pH (7.35-7.45) ABG pO2 (83-108) mmHg ABG O2 Saturation (94-97) % Sodium (137-145) mmol/L BUN (7-17) mg/dL Creatinine (0.52-1.04) mg/dL Glucose (74-99) mg/dL POC Glucose (mg/dL) 127 H 146 H (75-99) mg/dL Calcium (8.4-10.2) mg/dL Phosphorus (2.5-4.5) mg/dL Magnesium (1.6-2.3) mg/dL AST (14-36) U/L ALT (9-52) U/L Troponin I (0.000-0.034) ng/mL Total Protein (6.3-8.2) g/dL Albumin (3.5-5.0) g/dL 11/20/18 11/20/18 11/20/18 Range/Units 14:17 14:56 17:11 WBC (3.8-10.6) k/uL RBC (3.80-5.40) m/uL Hgb (11.4-16.0) gm/dL Hct (34.0-46.0) % MCHC (31.0-37.0) g/dL RDW (11.5-15.5) % PT (9.0-12.0) sec INR (<1.2) APTT (22.0-30.0) sec ABG pH (7.35-7.45) ABG pO2 (83-108) mmHg ABG O2 Saturation (94-97) % Sodium (137-145) mmol/L BUN (7-17) mg/dL Creatinine (0.52-1.04) mg/dL Glucose (74-99) mg/dL POC Glucose (mg/dL) 150 H 150 H 118 H (75-99) mg/dL Calcium (8.4-10.2) mg/dL Phosphorus (2.5-4.5) mg/dL Magnesium (1.6-2.3) mg/dL AST (14-36) U/L ALT (9-52) U/L Troponin I (0.000-0.034) ng/mL Total Protein (6.3-8.2) g/dL Albumin (3.5-5.0) g/dL 11/20/18 11/20/18 11/20/18 Range/Units 18:04 19:04 20:27 WBC (3.8-10.6) k/uL RBC (3.80-5.40) m/uL Hgb (11.4-16.0) gm/dL Hct (34.0-46.0) % MCHC (31.0-37.0) g/dL RDW (11.5-15.5) % PT (9.0-12.0) sec INR (<1.2) APTT (22.0-30.0) sec ABG pH (7.35-7.45) ABG pO2 (83-108) mmHg ABG O2 Saturation (94-97) % Sodium (137-145) mmol/L BUN (7-17) mg/dL Creatinine (0.52-1.04) mg/dL Glucose (74-99) mg/dL POC Glucose (mg/dL) 125 H 146 H 181 H (75-99) mg/dL Calcium (8.4-10.2) mg/dL Phosphorus (2.5-4.5) mg/dL Magnesium (1.6-2.3) mg/dL AST (14-36) U/L ALT (9-52) U/L Troponin I (0.000-0.034) ng/mL Total Protein (6.3-8.2) g/dL Albumin (3.5-5.0) g/dL 11/20/18 11/21/18 11/21/18 Range/Units 23:00 00:26 01:23 WBC (3.8-10.6) k/uL RBC (3.80-5.40) m/uL Hgb (11.4-16.0) gm/dL Hct (34.0-46.0) % MCHC (31.0-37.0) g/dL RDW (11.5-15.5) % PT (9.0-12.0) sec INR (<1.2) APTT (22.0-30.0) sec ABG pH (7.35-7.45) ABG pO2 (83-108) mmHg ABG O2 Saturation (94-97) % Sodium (137-145) mmol/L BUN (7-17) mg/dL Creatinine (0.52-1.04) mg/dL Glucose (74-99) mg/dL POC Glucose (mg/dL) 164 H 155 H 149 H (75-99) mg/dL Calcium (8.4-10.2) mg/dL Phosphorus (2.5-4.5) mg/dL Magnesium (1.6-2.3) mg/dL AST (14-36) U/L ALT (9-52) U/L Troponin I (0.000-0.034) ng/mL Total Protein (6.3-8.2) g/dL Albumin (3.5-5.0) g/dL 11/21/18 11/21/18 11/21/18 Range/Units 03:03 04:20 05:30 WBC (3.8-10.6) k/uL RBC (3.80-5.40) m/uL Hgb (11.4-16.0) gm/dL Hct (34.0-46.0) % MCHC (31.0-37.0) g/dL RDW (11.5-15.5) % PT (9.0-12.0) sec INR (<1.2) APTT (22.0-30.0) sec ABG pH (7.35-7.45) ABG pO2 (83-108) mmHg ABG O2 Saturation (94-97) % Sodium (137-145) mmol/L BUN (7-17) mg/dL Creatinine (0.52-1.04) mg/dL Glucose (74-99) mg/dL POC Glucose (mg/dL) 150 H 157 H (75-99) mg/dL Calcium (8.4-10.2) mg/dL Phosphorus 7.4 H (2.5-4.5) mg/dL Magnesium 2.7 H (1.6-2.3) mg/dL AST (14-36) U/L ALT (9-52) U/L Troponin I (0.000-0.034) ng/mL Total Protein (6.3-8.2) g/dL Albumin (3.5-5.0) g/dL 11/21/18 11/21/18 11/21/18 Range/Units 08:39 09:00 09:19 WBC (3.8-10.6) k/uL RBC (3.80-5.40) m/uL Hgb (11.4-16.0) gm/dL Hct (34.0-46.0) % MCHC (31.0-37.0) g/dL RDW (11.5-15.5) % PT (9.0-12.0) sec INR (<1.2) APTT (22.0-30.0) sec ABG pH 7.32 L (7.35-7.45) ABG pO2 >400 H (83-108) mmHg ABG O2 Saturation 100.0 H (94-97) % Sodium (137-145) mmol/L BUN (7-17) mg/dL Creatinine (0.52-1.04) mg/dL Glucose (74-99) mg/dL POC Glucose (mg/dL) 165 H 172 H (75-99) mg/dL Calcium (8.4-10.2) mg/dL Phosphorus (2.5-4.5) mg/dL Magnesium (1.6-2.3) mg/dL AST (14-36) U/L ALT (9-52) U/L Troponin I (0.000-0.034) ng/mL Total Protein (6.3-8.2) g/dL Albumin (3.5-5.0) g/dL 11/21/18 11/21/18 11/21/18 Range/Units 10:15 10:20 10:20 WBC 14.2 H (3.8-10.6) k/uL RBC 2.14 L (3.80-5.40) m/uL Hgb 6.4 L* (11.4-16.0) gm/dL Hct 21.0 L (34.0-46.0) % MCHC 30.7 L (31.0-37.0) g/dL RDW 21.5 H (11.5-15.5) % PT 12.5 H (9.0-12.0) sec INR 1.2 H (<1.2) APTT 121.2 H* (22.0-30.0) sec ABG pH (7.35-7.45) ABG pO2 (83-108) mmHg ABG O2 Saturation (94-97) % Sodium (137-145) mmol/L BUN (7-17) mg/dL Creatinine (0.52-1.04) mg/dL Glucose (74-99) mg/dL POC Glucose (mg/dL) 135 H (75-99) mg/dL Calcium (8.4-10.2) mg/dL Phosphorus (2.5-4.5) mg/dL Magnesium (1.6-2.3) mg/dL AST (14-36) U/L ALT (9-52) U/L Troponin I (0.000-0.034) ng/mL Total Protein (6.3-8.2) g/dL Albumin (3.5-5.0) g/dL 11/21/18 11/21/18 11/21/18 Range/Units 10:20 10:20 11:15 WBC (3.8-10.6) k/uL RBC (3.80-5.40) m/uL Hgb (11.4-16.0) gm/dL Hct (34.0-46.0) % MCHC (31.0-37.0) g/dL RDW (11.5-15.5) % PT (9.0-12.0) sec INR (<1.2) APTT (22.0-30.0) sec ABG pH (7.35-7.45) ABG pO2 (83-108) mmHg ABG O2 Saturation (94-97) % Sodium 134 L (137-145) mmol/L BUN 97 H (7-17) mg/dL Creatinine 5.80 H (0.52-1.04) mg/dL Glucose 146 H (74-99) mg/dL POC Glucose (mg/dL) 138 H (75-99) mg/dL Calcium 8.0 L (8.4-10.2) mg/dL Phosphorus (2.5-4.5) mg/dL Magnesium (1.6-2.3) mg/dL AST 69 H (14-36) U/L ALT 220 H (9-52) U/L Troponin I 7.810 H* (0.000-0.034) ng/mL Total Protein 4.6 L (6.3-8.2) g/dL Albumin 2.3 L (3.5-5.0) g/dL Microbiology - Last 24 Hours (Table) 11/16/18 08:00 Stool Culture - Final Stool Assessment and Plan Assessment: Assessment Acute on chronic renal failure Acute hypoxic respiratory failure requiring supplemental oxygen and mechanical ventilation metabolic acidosis Biventricular heart failure PE Severe sepsis Altered mental status and metabolic encephalopathy DVT of the right lower extremity small bilateral pleural effusions Plan Medications have been reviewed and will be continued as ordered. Continue with credit assessment analyst recommendations Mechanical ventilation with propofol for sedation Vasopressor support wean as tolerated Hemodialysis per nephrology Continue to monitor hemoglobin Tube feeds Continue with pulmonary hygiene, coughing and deep breathing exercises, and supportive care. Supplemental oxygen to maintain oxygen saturations of 92% or better. Continue nebulizer treatments. GI and DVT prophylaxis. We will continue to monitor labs/results and adjust treatment as necessary. Further recommendations pending. I, the signing physician performed an examination of the patient, discussed and directed their management with the nurse practitioner. I have reviewed the nurse practitioner's note and agree with the documented findings, orders and plan of care. Nurse practitioner acting as a scribe for the signing physician. Please note we are covering for Dr. Bandar Paul today
[2018-11-21] MEDS: ASPIRIN 81 MG PO SCH (11:55)
[2018-11-21] MEDS: CALCIUM ACETATE 667 MG CAP PO SCH ×3 (11:55→20:27)
[2018-11-21] MEDS: NICOTINE 21MG/24HR PATCH TRANSDERM SCH (11:55)
[2018-11-21] MEDS: methylPREDNISolone SOD SUCCI 40 MG/ML 1 ML VIAL IV SCH ×2 (11:56→21:49)
[2018-11-21] MEDS: PANTOPRAZOLE 40 MG/10 ML VIAL IVP SCH ×2 (11:56→21:49)
[2018-11-21] MEDS: FERROUS SULFATE ORAL ELIXIR 300 MG/5 ML CUP NG-TUBE SCH (11:56)
[2018-11-21] MEDS: METOPROLOL TARTRATE 25 MG TAB PO SCH ×2 (11:56→21:49)
[2018-11-21] MEDS: ATORVASTATIN 40 MG TAB PO SCH (11:56)
[2018-11-21] MEDS: AMIODARONE 200 MG TAB PO SCH ×2 (12:01→21:48)
[2018-11-21] MEDS: ALBUTEROL NEBULIZED 2.5 MG/3 ML INHALATION PRN ×3 (12:07→19:35)
[2018-11-21 12:08] LABS: Glucose,Whole Blood 164 mg/dL (75-99)
[2018-11-21] MEDS: SODIUM CHLORIDE 0.9% 1,000 ML IV SCH (13:22)
[2018-11-21 13:28] LABS: Glucose,Whole Blood 149 mg/dL (75-99)
[2018-11-21 14:21] LABS: Glucose,Whole Blood 168 mg/dL (75-99)
--- NOTE | 2018-11-21 14:40 | P.PN ---
Subjective Progress Note Date: 11/21/18 This is an extremely sick intensive care unit patient, and my evaluation uncovering this patient for Dr. Gordillo upon his request. I noted the patient's history and review the records. I also met the family including her and the daughter. In summary, the patient is an extensive cardiac history including previous history of coronary artery disease and previous bypass surgery 2008, peripheral artery disease and previous vascular bypass to the lower extremities, CHF with impaired ejection fraction of 35%, pulmonary hypertension, history of chronic renal failure with stage IV kidney disease, chronic atrial fibrillation, previous history of a right lower extremity DVT, bruises support embolism, obstructive sleep apnea, obesity, who has been in the intensive care unit for altered mental status. During the course of the treatment the patient was intubated and placed on mechanical ventilator. During the course of treatments, the patient required pressors and the patient was being treated with levo fed for hemodynamic support. She ultimately went into end-stage renal disease and the patient had to be dialyzed via temporary dialysis catheter that was inserted in the right IJ. During the course of the treatment, the patient was also noted to have episodic GI bleed while being on anticoagulation for DVT. Plastic surgery was also consulted for possibility of an underlying IVC filter placement Rise to my morning rounds, the patient was already decompensating. The nursing staff had called Dr. Gordillo early this morning for issues related diminished level of consciousness, unresponsiveness, worsening shortness of breath and consented the patient may not be able to protect her airways. At that point, in order was given to intubate the patient and put on a mechanical ventilator. The patient was already intubated, arrival. The patient was an assist-control mode of ventilator. The patient had a post intubation chest exit that showed evidence of pulmonary edema. She was around 2 cm above the nieves. The patient had a temporary.scattered on the right and small bilateral pleural effusion right more than left in addition to some atelectatic changes in lung bases bilaterally. Apparently, BiPAP was attempted prior to intubation process however the patient failed the BiPAP. Hemodynamically, the patient is in atrial fibrillation. The patient is currently on a combination of Lopressor 25 mg by mouth twice a day and amiodarone 400 mg by mouth twice a day. Nevertheless, post intubation the patient had to go back on pressors to maintain a mean artery pressure above 65. Urine output was low. The patient was having bloody stool this being collected in a fecal management system. I repeated the hemoglobin that came down to 6.4. At that point a body ordered to liters of IV fluid in the form of normal saline and 2 units of packed RBC. The patient was already on sedation and she was, comfortable. Abdomen was nondistended yet she had significant amount of edema in all 4 extremities. The patient was afebrile. White cell count was not elevated. The patient however the most rated necrotic digits in the feet bilaterally and the pulses were quite diminished in all 4 extremities and there were only obtained by Doppler signal. The PPT was subtherapeutic and adjustments on the heparin infusion is to follow. The blood gas showed a pH of 7.32 with a pCO2 of 42 and pO2 more than 400 and based on that the FiO2 was weaned down to 50% and the PEEP was kept at 5. The patient is a tidal volume of 450. Antibiotics was added on empiric basis and the patient was placed on a combination of cefepime and Flagyl suspecting ischemic colitis as the patient's was having chronic abdominal pain and she is a vasculopath is very much likely that she has symptoms of chronic mesenteric ischemia with possibly an acute ischemic component contributing to her bloody diarrhea. Objective - Vital Signs Vital signs: Vital Signs Temp 98.1 F 11/21/18 12:00 Pulse 70 11/21/18 14:00 Resp 20 11/21/18 14:00 BP 108/78 11/21/18 14:00 Pulse Ox 100 11/21/18 14:00 Intake & Output 11/20/18 11/21/18 11/21/18 18:59 06:59 18:59 Intake Total 308.685 261.460 204.386 Output Total 0 1205 555 Balance 308.685 -943.540 -350.614 Weight 132 kg 132 kg Intake: IV 180 125 20 Sodium Chloride 0.9% 1, 180 125 20 000 ml @ 10 mls/hr IV . Q24H [facility] Rx#:[id number] Intake, IV Titration 66.685 136.460 184.386 Amount Heparin Sod,Pork in 0.45% 0 133.598 153.372 NaCl 25,000 unit In 0.45 % NaCl 1 250ml.bag @ 8.45 UNITS/KG/HR 9.97 mls/hr IV .Q24H [facility] Rx#: [id number] Insulin Regular 100 unit 42.285 2.862 13.854 In Sodium Chloride 0.9% 100 ml @ Per Protocol IV .Q0M [facility] Rx#:[id number] Norepinephrine 16 mg In 24.400 0 Sodium Chloride 0.9% 250 ml @ Titrate IV .Q0M [facility] Rx#:[id number] Propofol 1,000 mg In 17.16 Empty Bag 1 bag @ Titrate IV .Q0M [facility] Rx#: [id number] Oral 0 Tube Feeding 62 Output: Urine 0 5 5 Stool 1200 550 Other: Voiding Method Indwelling Catheter Indwelling Catheter Indwelling Catheter # Voids 0 - Exam Intubated, sedated, comfortable likely distress. Morbidly obese. Cold extremities and addition to ischemic toes bilaterally. Intubated on a mechanical ventilator. Orogastric and orotracheal tube are both in place. Head exam was generally normal. There was no scleral icterus or corneal arcus. Mucous membranes were moist. Neck was supple and without jugular venous distension, thyromegaly, or carotid bruits. Carotids were easily palpable bilaterally. There was no adenopathy. The patient has a right IJ triple lumen catheter/temporary dialysis catheter and exit site is clean. Lungs were clear to auscultation and percussion, and with normal diaphragmatic excursion. No wheezes or rales were noted. Heart sounds are irregular, positive S1-S2, no cervical murmurs could be appreciated. Abdomen is obese soft nontender. Organs cannot be accurately palpated. There is no ascites. No direct or rebound tensile guarding at this point in time. Extremities are cold. Pulses are diminished in all 4 extremities and they're obtained only by Doppler. Necrotic digits in the feet bilaterally. No clubbing. There is edema +1 in all extremities. Skin cold and clammy and addition to necrotic skin changes in the toes of the lower extremity feet bilaterally. Neurologically the patient is sedated, pupils are equal and reactive to light. No facial asymmetry. Motor and sensory functions cannot be accurately obtained. - Labs CBC & Chem 7: 11/21/18 10:20 11/21/18 10:20 Labs: Abnormal Lab Results - Last 24 Hours (Table) 11/20/18 11/20/18 11/20/18 Range/Units 14:17 14:56 17:11 WBC (3.8-10.6) k/uL RBC (3.80-5.40) m/uL Hgb (11.4-16.0) gm/dL Hct (34.0-46.0) % MCHC (31.0-37.0) g/dL RDW (11.5-15.5) % PT (9.0-12.0) sec INR (<1.2) APTT (22.0-30.0) sec ABG pH (7.35-7.45) ABG pO2 (83-108) mmHg ABG O2 Saturation (94-97) % Sodium (137-145) mmol/L BUN (7-17) mg/dL Creatinine (0.52-1.04) mg/dL Glucose (74-99) mg/dL POC Glucose (mg/dL) 150 H 150 H 118 H (75-99) mg/dL Calcium (8.4-10.2) mg/dL Phosphorus (2.5-4.5) mg/dL Magnesium (1.6-2.3) mg/dL AST (14-36) U/L ALT (9-52) U/L Troponin I (0.000-0.034) ng/mL Total Protein (6.3-8.2) g/dL Albumin (3.5-5.0) g/dL Crossmatch 11/20/18 11/20/18 11/20/18 Range/Units 18:04 19:04 20:27 WBC (3.8-10.6) k/uL RBC (3.80-5.40) m/uL Hgb (11.4-16.0) gm/dL Hct (34.0-46.0) % MCHC (31.0-37.0) g/dL RDW (11.5-15.5) % PT (9.0-12.0) sec INR (<1.2) APTT (22.0-30.0) sec ABG pH (7.35-7.45) ABG pO2 (83-108) mmHg ABG O2 Saturation (94-97) % Sodium (137-145) mmol/L BUN (7-17) mg/dL Creatinine (0.52-1.04) mg/dL Glucose (74-99) mg/dL POC Glucose (mg/dL) 125 H 146 H 181 H (75-99) mg/dL Calcium (8.4-10.2) mg/dL Phosphorus (2.5-4.5) mg/dL Magnesium (1.6-2.3) mg/dL AST (14-36) U/L ALT (9-52) U/L Troponin I (0.000-0.034) ng/mL Total Protein (6.3-8.2) g/dL Albumin (3.5-5.0) g/dL Crossmatch 11/20/18 11/21/18 11/21/18 Range/Units 23:00 00:26 01:23 WBC (3.8-10.6) k/uL RBC (3.80-5.40) m/uL Hgb (11.4-16.0) gm/dL Hct (34.0-46.0) % MCHC (31.0-37.0) g/dL RDW (11.5-15.5) % PT (9.0-12.0) sec INR (<1.2) APTT (22.0-30.0) sec ABG pH (7.35-7.45) ABG pO2 (83-108) mmHg ABG O2 Saturation (94-97) % Sodium (137-145) mmol/L BUN (7-17) mg/dL Creatinine (0.52-1.04) mg/dL Glucose (74-99) mg/dL POC Glucose (mg/dL) 164 H 155 H 149 H (75-99) mg/dL Calcium (8.4-10.2) mg/dL Phosphorus (2.5-4.5) mg/dL Magnesium (1.6-2.3) mg/dL AST (14-36) U/L ALT (9-52) U/L Troponin I (0.000-0.034) ng/mL Total Protein (6.3-8.2) g/dL Albumin (3.5-5.0) g/dL Crossmatch 11/21/18 11/21/18 11/21/18 Range/Units 03:03 04:20 05:30 WBC (3.8-10.6) k/uL RBC (3.80-5.40) m/uL Hgb (11.4-16.0) gm/dL Hct (34.0-46.0) % MCHC (31.0-37.0) g/dL RDW (11.5-15.5) % PT (9.0-12.0) sec INR (<1.2) APTT (22.0-30.0) sec ABG pH (7.35-7.45) ABG pO2 (83-108) mmHg ABG O2 Saturation (94-97) % Sodium (137-145) mmol/L BUN (7-17) mg/dL Creatinine (0.52-1.04) mg/dL Glucose (74-99) mg/dL POC Glucose (mg/dL) 150 H 157 H (75-99) mg/dL Calcium (8.4-10.2) mg/dL Phosphorus 7.4 H (2.5-4.5) mg/dL Magnesium 2.7 H (1.6-2.3) mg/dL AST (14-36) U/L ALT (9-52) U/L Troponin I (0.000-0.034) ng/mL Total Protein (6.3-8.2) g/dL Albumin (3.5-5.0) g/dL Crossmatch 11/21/18 11/21/18 11/21/18 Range/Units 08:39 09:00 09:19 WBC (3.8-10.6) k/uL RBC (3.80-5.40) m/uL Hgb (11.4-16.0) gm/dL Hct (34.0-46.0) % MCHC (31.0-37.0) g/dL RDW (11.5-15.5) % PT (9.0-12.0) sec INR (<1.2) APTT (22.0-30.0) sec ABG pH 7.32 L (7.35-7.45) ABG pO2 >400 H (83-108) mmHg ABG O2 Saturation 100.0 H (94-97) % Sodium (137-145) mmol/L BUN (7-17) mg/dL Creatinine (0.52-1.04) mg/dL Glucose (74-99) mg/dL POC Glucose (mg/dL) 165 H 172 H (75-99) mg/dL Calcium (8.4-10.2) mg/dL Phosphorus (2.5-4.5) mg/dL Magnesium (1.6-2.3) mg/dL AST (14-36) U/L ALT (9-52) U/L Troponin I (0.000-0.034) ng/mL Total Protein (6.3-8.2) g/dL Albumin (3.5-5.0) g/dL Crossmatch 11/21/18 11/21/18 11/21/18 Range/Units 10:15 10:20 10:20 WBC 14.2 H (3.8-10.6) k/uL RBC 2.14 L (3.80-5.40) m/uL Hgb 6.4 L* (11.4-16.0) gm/dL Hct 21.0 L (34.0-46.0) % MCHC 30.7 L (31.0-37.0) g/dL RDW 21.5 H (11.5-15.5) % PT 12.5 H (9.0-12.0) sec INR 1.2 H (<1.2) APTT 121.2 H* (22.0-30.0) sec ABG pH (7.35-7.45) ABG pO2 (83-108) mmHg ABG O2 Saturation (94-97) % Sodium (137-145) mmol/L BUN (7-17) mg/dL Creatinine (0.52-1.04) mg/dL Glucose (74-99) mg/dL POC Glucose (mg/dL) 135 H (75-99) mg/dL Calcium (8.4-10.2) mg/dL Phosphorus (2.5-4.5) mg/dL Magnesium (1.6-2.3) mg/dL AST (14-36) U/L ALT (9-52) U/L Troponin I (0.000-0.034) ng/mL Total Protein (6.3-8.2) g/dL Albumin (3.5-5.0) g/dL Crossmatch 11/21/18 11/21/18 11/21/18 Range/Units 10:20 10:20 11:15 WBC (3.8-10.6) k/uL RBC (3.80-5.40) m/uL Hgb (11.4-16.0) gm/dL Hct (34.0-46.0) % MCHC (31.0-37.0) g/dL RDW (11.5-15.5) % PT (9.0-12.0) sec INR (<1.2) APTT (22.0-30.0) sec ABG pH (7.35-7.45) ABG pO2 (83-108) mmHg ABG O2 Saturation (94-97) % Sodium 134 L (137-145) mmol/L BUN 97 H (7-17) mg/dL Creatinine 5.80 H (0.52-1.04) mg/dL Glucose 146 H (74-99) mg/dL POC Glucose (mg/dL) 138 H (75-99) mg/dL Calcium 8.0 L (8.4-10.2) mg/dL Phosphorus (2.5-4.5) mg/dL Magnesium (1.6-2.3) mg/dL AST 69 H (14-36) U/L ALT 220 H (9-52) U/L Troponin I 7.810 H* (0.000-0.034) ng/mL Total Protein 4.6 L (6.3-8.2) g/dL Albumin 2.3 L (3.5-5.0) g/dL Crossmatch 11/21/18 11/21/18 11/21/18 Range/Units 11:57 12:34 13:17 WBC (3.8-10.6) k/uL RBC (3.80-5.40) m/uL Hgb (11.4-16.0) gm/dL Hct (34.0-46.0) % MCHC (31.0-37.0) g/dL RDW (11.5-15.5) % PT (9.0-12.0) sec INR (<1.2) APTT (22.0-30.0) sec ABG pH (7.35-7.45) ABG pO2 (83-108) mmHg ABG O2 Saturation (94-97) % Sodium (137-145) mmol/L BUN (7-17) mg/dL Creatinine (0.52-1.04) mg/dL Glucose (74-99) mg/dL POC Glucose (mg/dL) 164 H 149 H (75-99) mg/dL Calcium (8.4-10.2) mg/dL Phosphorus (2.5-4.5) mg/dL Magnesium (1.6-2.3) mg/dL AST (14-36) U/L ALT (9-52) U/L Troponin I (0.000-0.034) ng/mL Total Protein (6.3-8.2) g/dL Albumin (3.5-5.0) g/dL Crossmatch See Detail 11/21/18 Range/Units 14:07 WBC (3.8-10.6) k/uL RBC (3.80-5.40) m/uL Hgb (11.4-16.0) gm/dL Hct (34.0-46.0) % MCHC (31.0-37.0) g/dL RDW (11.5-15.5) % PT (9.0-12.0) sec INR (<1.2) APTT (22.0-30.0) sec ABG pH (7.35-7.45) ABG pO2 (83-108) mmHg ABG O2 Saturation (94-97) % Sodium (137-145) mmol/L BUN (7-17) mg/dL Creatinine (0.52-1.04) mg/dL Glucose (74-99) mg/dL POC Glucose (mg/dL) 168 H (75-99) mg/dL Calcium (8.4-10.2) mg/dL Phosphorus (2.5-4.5) mg/dL Magnesium (1.6-2.3) mg/dL AST (14-36) U/L ALT (9-52) U/L Troponin I (0.000-0.034) ng/mL Total Protein (6.3-8.2) g/dL Albumin (3.5-5.0) g/dL Crossmatch Microbiology - Last 24 Hours (Table) 11/16/18 08:00 Stool Culture - Final Stool Assessment and Plan Plan: Assessment 1 acute hypoxic respiratory failure, recurrent and the patient had to be reintubated in the intensive care unit. The cause for the recurrent respiratory failure is multifactorial, most significantly related to fluid overload/pulmonary edema as evident on the chest x-ray. Aspiration cannot be completely ruled out 2 altered mental status secondary to underlying multiple medical problems and comorbidities 3 acute shock/hypovolemic/hemorrhagic shock as the patient is having ongoing GI bleed with drop in hemoglobin down to 6.4. The patient is currently on pressors and norepinephrine is running at 7-8 mics per KG per minute. Possibility of underlying septic shock cannot be completely ruled out. White cell count is on the rise and the patient needs to be covered with a row spectrum antibiotics. 4 severe anemia with hemoglobin down to 6.4 related to GI bleed 5 suspected ischemic colitis with secondary GI bleeding, lactic acid level was nonelevated 6 acute on chronic renal failure and the patient is anuric currently on hemodialysis via a temper dialysis catheter in the right IJ 7 DVT of the right lower extremity currently on IV heparin 8 coronary artery disease with previous bypass surgery in 2008 9 severe peripheral vascular disease with previous best of bypass surgery to the lower extremities bilaterally 10 necrotic toes, secondary to hypoperfusion in addition to an underlying severe peripheral vascular disease 11 small bilateral pleural effusion right more than left 12 acute non-ST segment elevation myocardial infarction the troponin is up to 7 13 chronic atrial fibrillation with episodes of rapid ventricular response currently well-controlled 14 volume overload 15 systolic heart failure with ejection fraction of 30-35% and severe pulmonary hypertension moderate degree of tricuspid regurgitation 16 chronic stage IV kidney disease secondary to diabetic kidney disease and nephrosclerosis 17 diabetes mellitus 18 poor baseline performance and functional status secondary to above-mentioned comorbidities Plan The patient's condition is critical. There has been decompensation is status in general. The patient is currently shock. 2 L of IV fluids was given immediately. The patient will be given a 2 units of packed RBC and hemoglobin will be repeated. For now continued IV heparin and monitor the hemoglobin and consult with vascular surgery and discuss with them the option of an IVC filter placement if this is something feasible in her current condition. Continued IV Protonix. Continue vent support and this is a branches were done. Cover this patient with a combination of cefepime and Flagyl as a broad-spectrum antibiotic giving her adequate GI coverage. Continue with pressors for now. Continue sedation. We'll discuss the case with nephrology and seems the patient may be able to handle a session of hemodialysis today. Keep the patient nothing by mouth for the next 24 hours based on underlying GI bleed. Discussed the case with the family. Condition is very critical. She gives a very high mortality based on the above-mentioned comorbidities. We'll continue to follow. This critically care evaluation was done and more than 50 minutes. Time with Patient: Greater than 30
[2018-11-21 15:32] LABS: Glucose,Whole Blood 142 mg/dL (75-99)
[2018-11-21 16:57] LABS: Glucose,Whole Blood 131 mg/dL (75-99)
[2018-11-21 18:33] LABS: Glucose,Whole Blood 160 mg/dL (75-99)
--- NOTE | 2018-11-21 18:48 | PN ---
PROGRESS NOTE Patient was seen this morning. She was intubated early electrotyper helper today. The patient remains with poor urine output. She was scheduled for hemodialysis today. Patient continues to have dark colored stool in the fecal management system. Her blood pressure was low and she was started on pressors for a small period of time. Currently, she is off of the pressors. PHYSICAL EXAMINATION: This morning, the patient was sedated and on the vent. Blood pressure was 109/51, heart rate of 70 per minute. Patient is afebrile. Examination of the heart S1, S2. Examination of lungs bilateral breath sounds are heard. Abdomen is soft, nontender. Examination of lower extremity shows edema 3+ bilaterally. LABS: Hemoglobin at 6.4, sodium 134, potassium 5.0, serum creatinine 5.8. ASSESSMENT: 1. Acute kidney injury, currently hemodialysis dependent with no significant urine output given the fact that the patient is severely anemic with borderline blood pressures and the elevated troponin, I will hold off on dialysis today. She is currently on the vent. Therefore, there is no urgency. We will dialyze her tomorrow. 2. Anemia with dark colored stools. Stool for occult blood was positive on November 07. 3. Respiratory failure, currently on the vent. 4. Hypotension, secondary to the possibly underlying sepsis as well as GI bleed. 5. Volume overload. 6. Acute myocardial infarction. 7. Chronic atrial fibrillation with controlled ventricular response. 8. Chronic kidney disease stage IV secondary to diabetic kidney disease. PLAN: Hold dialysis today. We will plan on dialyzing the patient tomorrow and we will try to increase the UF as tolerated. Transfuse packed RBCs. Overall prognosis is guarded. MMODL / IJN: [id number] /
[2018-11-21 18:52] LABS: Glucose,Whole Blood 155 mg/dL (75-99)
[2018-11-21 20:36] LABS: Glucose,Whole Blood 176 mg/dL (75-99)
[2018-11-21 20:43] LABS: Anisocytosis Slight; HCT 26.5 % (34.0-46.0); Hypochromasia Marked; MCH 30.8 pg (25.0-35.0); MCHC 32.2 g/dL (31.0-37.0); MCV 95.7 fL (80.0-100.0); Macrocytosis Slight; Mean Platelet Volume 7.5; Platelet Count 218 k/uL (150-450); Poikilocytosis Moderate; RBC 2.76 m/uL (3.80-5.40); RDW 19.8 % (11.5-15.5)
[2018-11-21 20:45] LABS: HGB 8.5 gm/dL (11.4-16.0)
[2018-11-21 22:12] LABS: Glucose,Whole Blood 161 mg/dL (75-99)
[2018-11-21] MEDS ORDERED: HEPARIN SODIUM,PORCINE 5,000 UNIT/ML 1 ML VIAL IV STA (23:04)
[2018-11-21 23:09] LABS: Glucose,Whole Blood 177 mg/dL (75-99)
--- NOTE | 2018-11-21 23:29 | PN ---
PROGRESS NOTE DATE OF SERVICE: 11/21/2018. REASON FOR FOLLOWUP: 1. Possible pneumonia. 2. Diarrhea. INTERVAL HISTORY: The patient this morning went to respiratory distress. The patient was lethargic and unable to protect the airway. The patient got reintubated. The patient has been requiring pressor support to take blood pressure. Currently sedated on the vent. Unable to provide any history. culture has been collected and no worsening diarrhea reported by the nursing staff. PHYSICAL EXAMINATION: Blood pressure 102/81, with a pulse of 73, temperature 98 on 3 L nasal is . He is 99% on 50% FiO2 . General description is a middle-aged female lying in bed in no distress. Respiratory system: Unlabored breathing. Decreased breath sounds at the bases. No wheeze. Heart S1, S2. Regular rate and rhythm. Abdomen soft, no tenderness. Extremities 2+ edema of feet. LABS: Hemoglobin 8.5, white count 73417. Blood and sputum culture obtained currently pending. DIAGNOSTIC IMPRESSION AND PLAN: Patient with acute respiratory failure which is likely pneumonia. The patient was started on cefepime and Flagyl. The patient will wait for sputum and blood culture finalized. Overall prognosis remains to be guarded. Continue supportive care. MMODL / IJN: [id number] /
[2018-11-22 00:17] LABS: Glucose,Whole Blood 138 mg/dL (75-99)
[2018-11-22] MEDS: SODIUM CHLORIDE 0.9% 1,000 ML IV SCH (00:50)
[2018-11-22] MEDS: PROPOFOL 1,000 MG in EMPTY BAG 1 BAG IV SCH ×2 (01:14→11:00)
[2018-11-22 01:31] LABS: Glucose,Whole Blood 174 mg/dL (75-99)
[2018-11-22 02:12] LABS: Glucose,Whole Blood 152 mg/dL (75-99)
[2018-11-22] MEDS: INSULIN REGULAR 100 UNIT in SODIUM CHLORIDE 0.9% 100 ML IV SCH ×2 (02:48→22:14)
[2018-11-22] MEDS: NOREPINEPHRINE 16 MG in SODIUM CHLORIDE 0.9% 250 ML IV SCH (02:49)
[2018-11-22 03:13] LABS: Glucose,Whole Blood 150 mg/dL (75-99)
[2018-11-22 04:11] LABS: Glucose,Whole Blood 194 mg/dL (75-99)
[2018-11-22 04:17] LABS: Anisocytosis Slight; HCT 25.7 % (34.0-46.0); Hypochromasia Moderate; MCH 29.7 pg (25.0-35.0); MCHC 31.2 g/dL (31.0-37.0); MCV 94.9 fL (80.0-100.0); Macrocytosis Slight; Mean Platelet Volume 7.9; Platelet Count 225 k/uL (150-450); Poikilocytosis Moderate; RBC 2.71 m/uL (3.80-5.40); RDW 19.7 % (11.5-15.5); WBC 11.8 k/uL (3.8-10.6)
[2018-11-22 05:15] LABS: Glucose,Whole Blood 149 mg/dL (75-99)
[2018-11-22 05:28] LABS: Calcium 7.8 mg/dL (8.4-10.2); Potassium 4.9 mmol/L (3.5-5.1)
[2018-11-22] MEDS: HEPARIN SOD,PORK IN 0.45% NACL 25,000 UNIT in 0.45% NACL 1 250ML.BAG IV SCH (05:57)
[2018-11-22 06:21] LABS: Glucose,Whole Blood 154 mg/dL (75-99)
[2018-11-22 07:14] LABS: Glucose,Whole Blood 141 mg/dL (75-99)
[2018-11-22] MEDS: ALBUTEROL NEBULIZED 2.5 MG/3 ML INHALATION PRN ×4 (08:01→21:12)
[2018-11-22 08:11] LABS: Glucose,Whole Blood 74 mg/dL (75-99)
[2018-11-22] MEDS: NICOTINE 21MG/24HR PATCH TRANSDERM SCH (08:27)
[2018-11-22] MEDS: CALCIUM ACETATE 667 MG CAP PO SCH ×3 (08:28→21:20)
[2018-11-22] MEDS: PANTOPRAZOLE 40 MG/10 ML VIAL IVP SCH ×2 (08:28→20:45)
[2018-11-22] MEDS: metroNIDAZOLE-NS PMX 500 MG in SALINE 1 100ML.BAG IVPB SCH ×2 (08:28→16:22)
[2018-11-22] MEDS: ATORVASTATIN 40 MG TAB PO SCH (08:28)
[2018-11-22] MEDS: CEFEPIME 0.5 GM in SODIUM CHLORIDE 0.9% 50 ML IVPB SCH (08:28)
[2018-11-22] MEDS: AMIODARONE 200 MG TAB PO SCH ×2 (08:29→20:45)
--- NOTE | 2018-11-22 08:48 | XR ---
EXAMINATION TYPE: XR chest 1V portable DATE OF EXAM: 11/22/2018 COMPARISON: 11/21/2018 INDICATION: Tube placement, difficulty breathing TECHNIQUE: Single frontal view of the chest is obtained. FINDINGS: The heart size is normal. The pulmonary vasculature is normal. Small bilateral pleural effusions are present. Some bilateral subsegmental atelectasis is likely zeyad cent. Findings are developing over the interval. Endotracheal tube tip is been pulled back from prior study with the tip above the nieves. Nasogastric tube transverses the thorax. There is a right central venous catheter sheath on the right with the t ip in the superior vena cava region. Right-sided PICC line is present with tip in superior vena cava region. Surgical clips at the right hilar region. IMPRESSION: 1. Developing small bilateral pleural effusions with adjacent subsegmental atelectasis. 2. Lines and catheters discussed above.
--- NOTE | 2018-11-22 08:49 | PN ---
PROGRESS NOTE Ms. Monahan is a 58-year-old with history of premature coronary disease, history of end- stage renal disease, on hemodialysis, severe peripheral vascular disease with respiratory failure and persistent abdominal pain, yesterday had to be reintubated because of the worsening dyspnea. She is intubated. She is in sinus mechanism, continues to be on norepinephrine although at a lower dose. She continues be on amiodarone 200 mg twice a day, Lipitor 40 mg daily, IV heparin, metoprolol tartrate 25 mg twice a day. PHYSICAL EXAMINATION: Blood pressure 120/50 with a heart rate in the 60s. LUNGS: Clear anteriorly. HEART: Regular rate and rhythm S1, S2. No S3. No rub appreciated. ABDOMEN: Soft, positive bowel sounds, obese. EXTREMITIES: +2 edema with evidence of necrotic skin tissue of the toes with decreased distal pulses. LAB DATA: Revealed BUN and creatinine of 109 and 6.29, potassium 4.9. Her troponin is 7.4, hemoglobin of 8. Her hemoglobin was 6.4 yesterday and she was transfused. IMPRESSION: 1. Respiratory failure requiring mechanical ventilation. Patient was re-intubated yesterday. 2. Premature coronary artery disease, status post coronary artery bypass grafting. 3. Severe peripheral vascular disease. 4. Recurrent anemia. 5. Elevation of troponin with evidence of myocardial infarction, probable related to supply demand mismatch with the hypoxemia that she had yesterday as well as the anemia. 6. History of deep venous thrombosis. 7. Paroxysmal atrial fibrillation. 8. Severe peripheral disease. 9. Diabetes mellitus. 10.Severe cardiomyopathy. RECOMMENDATION: From the cardiac standpoint,will continue on the present therapy. Unfortunately, the prognosis remains quite poor in view of her multiorgan failure. Will continue to follow her lab data closely. MMODL / IJN: [id number] /
[2018-11-22] MEDS ORDERED: DEXTROSE 50%-WATER 50 ML SYRINGE IVP STA (09:31)
[2018-11-22] MEDS: CHLORHEXIDINE GLUCONATE 15 ML CUP MUCOUS MEM SCH ×2 (09:35→20:45)
[2018-11-22] MEDS: methylPREDNISolone SOD SUCCI 40 MG/ML 1 ML VIAL IV SCH (09:35)
[2018-11-22 09:40] LABS: Glucose,Whole Blood 58 mg/dL (75-99)
[2018-11-22] MEDS: METOPROLOL TARTRATE 25 MG TAB PO SCH ×2 (10:07→20:36)
--- NOTE | 2018-11-22 10:13 | P.PN ---
Subjective Progress Note Date: 11/22/18 This is an extremely sick intensive care unit patient, and my evaluation uncovering this patient for Dr. Gordillo upon his request. I noted the patient's history and review the records. I also met the family including her and the daughter. In summary, the patient is an extensive cardiac history including previous history of coronary artery disease and previous bypass surgery 2008, peripheral artery disease and previous vascular bypass to the lower extremities, CHF with impaired ejection fraction of 35%, pulmonary hypertension, history of chronic renal failure with stage IV kidney disease, chronic atrial fibrillation, previous history of a right lower extremity DVT, bruises support embolism, obstructive sleep apnea, obesity, who has been in the intensive care unit for altered mental status. During the course of the treatment the patient was intubated and placed on mechanical ventilator. During the course of treatments, the patient required pressors and the patient was being treated with levo fed for hemodynamic support. She ultimately went into end-stage renal disease and the patient had to be dialyzed via temporary dialysis catheter that was inserted in the right IJ. During the course of the treatment, the patient was also noted to have episodic GI bleed while being on anticoagulation for DVT. Plastic surgery was also consulted for possibility of an underlying IVC filter placement Rise to my morning rounds, the patient was already decompensating. The nursing staff had called Dr. Gordillo early this morning for issues related diminished level of consciousness, unresponsiveness, worsening shortness of breath and consented the patient may not be able to protect her airways. At that point, in order was given to intubate the patient and put on a mechanical ventilator. The patient was already intubated, arrival. The patient was an assist-control mode of ventilator. The patient had a post intubation chest exit that showed evidence of pulmonary edema. She was around 2 cm above the nieves. The patient had a temporary.scattered on the right and small bilateral pleural effusion right more than left in addition to some atelectatic changes in lung bases bilaterally. Apparently, BiPAP was attempted prior to intubation process however the patient failed the BiPAP. Hemodynamically, the patient is in atrial fibrillation. The patient is currently on a combination of Lopressor 25 mg by mouth twice a day and amiodarone 400 mg by mouth twice a day. Nevertheless, post intubation the patient had to go back on pressors to maintain a mean artery pressure above 65. Urine output was low. The patient was having bloody stool this being collected in a fecal management system. I repeated the hemoglobin that came down to 6.4. At that point a body ordered to liters of IV fluid in the form of normal saline and 2 units of packed RBC. The patient was already on sedation and she was, comfortable. Abdomen was nondistended yet she had significant amount of edema in all 4 extremities. The patient was afebrile. White cell count was not elevated. The patient however the most rated necrotic digits in the feet bilaterally and the pulses were quite diminished in all 4 extremities and there were only obtained by Doppler signal. The PPT was subtherapeutic and adjustments on the heparin infusion is to follow. The blood gas showed a pH of 7.32 with a pCO2 of 42 and pO2 more than 400 and based on that the FiO2 was weaned down to 50% and the PEEP was kept at 5. The patient is a tidal volume of 450. Antibiotics was added on empiric basis and the patient was placed on a combination of cefepime and Flagyl suspecting ischemic colitis as the patient's was having chronic abdominal pain and she is a vasculopath is very much likely that she has symptoms of chronic mesenteric ischemia with possibly an acute ischemic component contributing to her bloody diarrhea. On today's evaluation of 11/22/2018, this patient remains critically ill. The patient is still sedated with Diprivan which is running at 20 g per KG per minute. She can easily aroused from sedation. At times we have also seen and follows some simple commands. As such, neurologically there is adequate function that we think of based on our sedation holiday that were given briefly to this patient. From the pulmonary standpoint, the patient remains on a mechanical ventilator and an assist-control mode with tidal volume of 500, FiO2 of 40% with a PEEP of 5 and the rate of 20. Blood gas was not obtained as the patient does not have any arterial line access at this point in time. The chest x-ray from today shows no significant change compared to yesterday. The patient has small bilateral pleural effusion and atelectatic changes in lung bases. There is a right-sided PICC line catheter in place. ET tube also is in a good location and there is no consolidation or airspace disease. Hemodynamically, the patient received a total of 2 L of IV fluids yesterday in the form of normal saline and the patient also received 2 units of packed RBC. Subsequent hemoglobin came up to 8.0. The patient has been kept on her pressors and currently she is on 2 g per KG of per minute of norepinephrine infusion. Urine output is in order of 0 mL an hour. The patient is a producing any urine output at this point in time. The plan is to proceed with dialysis today. The patient has a temper dialysis catheter in her right IJ. The dose will be done today. In terms of GI bleed, as mentioned the patient had on and off melanotic stools. EGD that was done earlier by GI on 11/10/2018 showed some ischemic changes in the antrum and the body of the stomach. Colonoscopy was not done. I suspect that there may be a ischemic bowel as the patient has symptoms that were typical of chronic mesenteric ischemia as the patient has chronic atherosclerotic disease. The patient is still covered with broad-spectrum antibiotics. Yesterday. Currently the patient is on a combination of IV Flagyl and IV cefepime. She is afebrile. White cell count is not elevated. The cardiac enzymes were positive in the setting of this massive shock state of the patient counted yesterday. Troponin initially came back at 6.8 and subsequently peaked at 7.9. Cardiology is on the case. No interventions are being planned for now. The patient remains nothing by mouth. I think TPN needs to be started on this patient for nutritional support. She remains on IV heparin regarding her right lower extremity DVT. In terms of the ischemic necrotic changes in his digits and toes, these are somewhat improved compared to yesterday. Pulses are obtained by Doppler. No palpable pulses in all 4 extremities that remain cold and clammy. No other significant events overnight. I have elected discussion with the patient's yesterday explained to him the critical nature of the condition. I also think he has a good understanding. I tried to fill in a lot of details regarding her chronic cardiac history, peripheral vascular disease, renal disease, etc. The daughter was more aware and receptive of the ongoing medical problems. Objective - Vital Signs Vital signs: Vital Signs Temp 97.3 F L 11/22/18 00:00 Pulse 62 11/22/18 08:28 Resp 20 11/22/18 03:00 BP 120/45 11/22/18 03:00 Pulse Ox 100 11/22/18 03:00 Intake & Output 11/21/18 11/22/18 11/22/18 18:59 06:59 18:59 Intake Total 2980.053 510.961 334.183 Output Total 1665 0 7 Balance 1315.053 510.961 327.183 Weight 132 kg 131.5 kg Intake: IV 120 170 60 Sodium Chloride 0.9% 1, 120 170 60 000 ml @ 10 mls/hr IV . Q24H [facility] Rx#:[id number] Intake, IV Titration 2500.053 340.961 274.183 Amount Cefepime 0.5 gm In Sodium 100 50 Chloride 0.9% 50 ml @ 100 mls/hr IVPB Q24HR [facility] Rx#:[id number] Heparin Sod,Pork in 0.45% 153.372 96.628 NaCl 25,000 unit In 0.45 % NaCl 1 250ml.bag @ 8.45 UNITS/KG/HR 9.97 mls/hr IV .Q24H [facility] Rx#: [id number] Insulin Regular 100 unit 23.146 27.742 14.881 In Sodium Chloride 0.9% 100 ml @ Per Protocol IV .Q0M [facility] Rx#:[id number] Lactated Ringers 1,000 ml 2000 @ 999 mls/hr IV .Q1H1M [facility] Rx#:[id number] Norepinephrine 16 mg In 16.375 23.751 9.302 Sodium Chloride 0.9% 250 ml @ Titrate IV .Q0M [facility] Rx#:[id number] Propofol 1,000 mg In 17.16 82.84 100 Empty Bag 1 bag @ Titrate IV .Q0M [facility] Rx#: [id number] Sodium Chloride 0.9% 1, 90 10 000 ml @ 10 mls/hr IV . Q24H [facility] Rx#:[id number] metroNIDAZOLE-NS PMX 500 100 100 100 mg In Saline 1 100ml.bag @ 100 mls/hr IVPB Q8HR [facility] Rx#:[id number] Blood Product 310 Rc As-1 Unit 0 [id number] Rc As-1 Unit 310 [id number] Other 50 Rc As-1 Unit 50 [id number] Output: Urine 15 0 7 Stool 1650 Other: Voiding Method Indwelling Catheter Indwelling Catheter # Voids 0 0 - Exam Intubated, sedated, comfortable likely distress. Morbidly obese. Cold extremities and addition to ischemic toes bilaterally. Intubated on a mechanical ventilator. Orogastric and orotracheal tube are both in place. Head exam was generally normal. There was no scleral icterus or corneal arcus. Mucous membranes were moist. Neck was supple and without jugular venous distension, thyromegaly, or carotid bruits. Carotids were easily palpable bilaterally. There was no adenopathy. The patient has a right IJ triple lumen catheter/temporary dialysis catheter and exit site is clean. Lungs were clear to auscultation and percussion, and with normal diaphragmatic excursion. No wheezes or rales were noted. Heart sounds are irregular, positive S1-S2, no cervical murmurs could be appreciated. Abdomen is obese soft nontender. Organs cannot be accurately palpated. There is no ascites. No direct or rebound tensile guarding at this point in time. Extremities are cold. Pulses are diminished in all 4 extremities and they're obtained only by Doppler. Necrotic digits in the feet bilaterally. No clubbing. There is edema +1 in all extremities. Skin cold and clammy and addition to necrotic skin changes in the toes of the lower extremity feet bilaterally. Neurologically the patient is sedated, pupils are equal and reactive to light. No facial asymmetry. Motor and sensory functions cannot be accurately obtained. The patient was given a sedation holiday's and the patient would follow occasional simple commands upon demand while being off sedation. - Labs CBC & Chem 7: 11/22/18 04:00 11/22/18 04:00 Labs: Abnormal Lab Results - Last 24 Hours (Table) 11/21/18 11/21/18 11/21/18 Range/Units 10:15 10:20 10:20 WBC 14.2 H (3.8-10.6) k/uL RBC 2.14 L (3.80-5.40) m/uL Hgb 6.4 L* (11.4-16.0) gm/dL Hct 21.0 L (34.0-46.0) % MCHC 30.7 L (31.0-37.0) g/dL RDW 21.5 H (11.5-15.5) % PT 12.5 H (9.0-12.0) sec INR 1.2 H (<1.2) APTT 121.2 H* (22.0-30.0) sec Sodium (137-145) mmol/L Carbon Dioxide (22-30) mmol/L BUN (7-17) mg/dL Creatinine (0.52-1.04) mg/dL Glucose (74-99) mg/dL POC Glucose (mg/dL) 135 H (75-99) mg/dL Calcium (8.4-10.2) mg/dL AST (14-36) U/L ALT (9-52) U/L Troponin I (0.000-0.034) ng/mL Total Protein (6.3-8.2) g/dL Albumin (3.5-5.0) g/dL Crossmatch 11/21/18 11/21/18 11/21/18 Range/Units 10:20 10:20 11:15 WBC (3.8-10.6) k/uL RBC (3.80-5.40) m/uL Hgb (11.4-16.0) gm/dL Hct (34.0-46.0) % MCHC (31.0-37.0) g/dL RDW (11.5-15.5) % PT (9.0-12.0) sec INR (<1.2) APTT (22.0-30.0) sec Sodium 134 L (137-145) mmol/L Carbon Dioxide (22-30) mmol/L BUN 97 H (7-17) mg/dL Creatinine 5.80 H (0.52-1.04) mg/dL Glucose 146 H (74-99) mg/dL POC Glucose (mg/dL) 138 H (75-99) mg/dL Calcium 8.0 L (8.4-10.2) mg/dL AST 69 H (14-36) U/L ALT 220 H (9-52) U/L Troponin I 7.810 H* (0.000-0.034) ng/mL Total Protein 4.6 L (6.3-8.2) g/dL Albumin 2.3 L (3.5-5.0) g/dL Crossmatch 11/21/18 11/21/18 11/21/18 Range/Units 11:57 12:34 13:17 WBC (3.8-10.6) k/uL RBC (3.80-5.40) m/uL Hgb (11.4-16.0) gm/dL Hct (34.0-46.0) % MCHC (31.0-37.0) g/dL RDW (11.5-15.5) % PT (9.0-12.0) sec INR (<1.2) APTT (22.0-30.0) sec Sodium (137-145) mmol/L Carbon Dioxide (22-30) mmol/L BUN (7-17) mg/dL Creatinine (0.52-1.04) mg/dL Glucose (74-99) mg/dL POC Glucose (mg/dL) 164 H 149 H (75-99) mg/dL Calcium (8.4-10.2) mg/dL AST (14-36) U/L ALT (9-52) U/L Troponin I (0.000-0.034) ng/mL Total Protein (6.3-8.2) g/dL Albumin (3.5-5.0) g/dL Crossmatch See Detail 11/21/18 11/21/18 11/21/18 Range/Units 14:07 15:20 16:45 WBC (3.8-10.6) k/uL RBC (3.80-5.40) m/uL Hgb (11.4-16.0) gm/dL Hct (34.0-46.0) % MCHC (31.0-37.0) g/dL RDW (11.5-15.5) % PT (9.0-12.0) sec INR (<1.2) APTT (22.0-30.0) sec Sodium (137-145) mmol/L Carbon Dioxide (22-30) mmol/L BUN (7-17) mg/dL Creatinine (0.52-1.04) mg/dL Glucose (74-99) mg/dL POC Glucose (mg/dL) 168 H 142 H 131 H (75-99) mg/dL Calcium (8.4-10.2) mg/dL AST (14-36) U/L ALT (9-52) U/L Troponin I (0.000-0.034) ng/mL Total Protein (6.3-8.2) g/dL Albumin (3.5-5.0) g/dL Crossmatch 11/21/18 11/21/18 11/21/18 Range/Units 18:22 18:41 20:23 WBC (3.8-10.6) k/uL RBC (3.80-5.40) m/uL Hgb (11.4-16.0) gm/dL Hct (34.0-46.0) % MCHC (31.0-37.0) g/dL RDW (11.5-15.5) % PT (9.0-12.0) sec INR (<1.2) APTT (22.0-30.0) sec Sodium (137-145) mmol/L Carbon Dioxide (22-30) mmol/L BUN (7-17) mg/dL Creatinine (0.52-1.04) mg/dL Glucose (74-99) mg/dL POC Glucose (mg/dL) 160 H 155 H 176 H (75-99) mg/dL Calcium (8.4-10.2) mg/dL AST (14-36) U/L ALT (9-52) U/L Troponin I (0.000-0.034) ng/mL Total Protein (6.3-8.2) g/dL Albumin (3.5-5.0) g/dL Crossmatch 11/21/18 11/21/18 11/21/18 Range/Units 20:30 20:30 20:45 WBC 11.0 H (3.8-10.6) k/uL RBC 2.76 L (3.80-5.40) m/uL Hgb 8.5 L D (11.4-16.0) gm/dL Hct 26.5 L (34.0-46.0) % MCHC (31.0-37.0) g/dL RDW 19.8 H (11.5-15.5) % PT (9.0-12.0) sec INR (<1.2) APTT 42.2 H (22.0-30.0) sec Sodium (137-145) mmol/L Carbon Dioxide (22-30) mmol/L BUN (7-17) mg/dL Creatinine (0.52-1.04) mg/dL Glucose (74-99) mg/dL POC Glucose (mg/dL) (75-99) mg/dL Calcium (8.4-10.2) mg/dL AST (14-36) U/L ALT (9-52) U/L Troponin I 6.780 H* (0.000-0.034) ng/mL Total Protein (6.3-8.2) g/dL Albumin (3.5-5.0) g/dL Crossmatch 11/21/18 11/21/18 11/22/18 Range/Units 22:01 22:57 00:06 WBC (3.8-10.6) k/uL RBC (3.80-5.40) m/uL Hgb (11.4-16.0) gm/dL Hct (34.0-46.0) % MCHC (31.0-37.0) g/dL RDW (11.5-15.5) % PT (9.0-12.0) sec INR (<1.2) APTT (22.0-30.0) sec Sodium (137-145) mmol/L Carbon Dioxide (22-30) mmol/L BUN (7-17) mg/dL Creatinine (0.52-1.04) mg/dL Glucose (74-99) mg/dL POC Glucose (mg/dL) 161 H 177 H 138 H (75-99) mg/dL Calcium (8.4-10.2) mg/dL AST (14-36) U/L ALT (9-52) U/L Troponin I (0.000-0.034) ng/mL Total Protein (6.3-8.2) g/dL Albumin (3.5-5.0) g/dL Crossmatch 11/22/18 11/22/18 11/22/18 Range/Units 01:19 02:01 03:02 WBC (3.8-10.6) k/uL RBC (3.80-5.40) m/uL Hgb (11.4-16.0) gm/dL Hct (34.0-46.0) % MCHC (31.0-37.0) g/dL RDW (11.5-15.5) % PT (9.0-12.0) sec INR (<1.2) APTT (22.0-30.0) sec Sodium (137-145) mmol/L Carbon Dioxide (22-30) mmol/L BUN (7-17) mg/dL Creatinine (0.52-1.04) mg/dL Glucose (74-99) mg/dL POC Glucose (mg/dL) 174 H 152 H 150 H (75-99) mg/dL Calcium (8.4-10.2) mg/dL AST (14-36) U/L ALT (9-52) U/L Troponin I (0.000-0.034) ng/mL Total Protein (6.3-8.2) g/dL Albumin (3.5-5.0) g/dL Crossmatch 11/22/18 11/22/18 11/22/18 Range/Units 03:59 04:00 04:00 WBC 11.8 H (3.8-10.6) k/uL RBC 2.71 L (3.80-5.40) m/uL Hgb 8.0 L (11.4-16.0) gm/dL Hct 25.7 L (34.0-46.0) % MCHC (31.0-37.0) g/dL RDW 19.7 H (11.5-15.5) % PT (9.0-12.0) sec INR (<1.2) APTT 150.4 H* (22.0-30.0) sec Sodium (137-145) mmol/L Carbon Dioxide (22-30) mmol/L BUN (7-17) mg/dL Creatinine (0.52-1.04) mg/dL Glucose (74-99) mg/dL POC Glucose (mg/dL) 194 H (75-99) mg/dL Calcium (8.4-10.2) mg/dL AST (14-36) U/L ALT (9-52) U/L Troponin I (0.000-0.034) ng/mL Total Protein (6.3-8.2) g/dL Albumin (3.5-5.0) g/dL Crossmatch 11/22/18 11/22/18 11/22/18 Range/Units 04:00 04:00 05:04 WBC (3.8-10.6) k/uL RBC (3.80-5.40) m/uL Hgb (11.4-16.0) gm/dL Hct (34.0-46.0) % MCHC (31.0-37.0) g/dL RDW (11.5-15.5) % PT (9.0-12.0) sec INR (<1.2) APTT (22.0-30.0) sec Sodium 133 L (137-145) mmol/L Carbon Dioxide 21 L (22-30) mmol/L BUN 109 H* (7-17) mg/dL Creatinine 6.29 H (0.52-1.04) mg/dL Glucose 153 H (74-99) mg/dL POC Glucose (mg/dL) 149 H (75-99) mg/dL Calcium 7.8 L (8.4-10.2) mg/dL AST (14-36) U/L ALT (9-52) U/L Troponin I 7.410 H* (0.000-0.034) ng/mL Total Protein (6.3-8.2) g/dL Albumin (3.5-5.0) g/dL Crossmatch 11/22/18 11/22/18 11/22/18 Range/Units 06:09 07:03 07:59 WBC (3.8-10.6) k/uL RBC (3.80-5.40) m/uL Hgb (11.4-16.0) gm/dL Hct (34.0-46.0) % MCHC (31.0-37.0) g/dL RDW (11.5-15.5) % PT (9.0-12.0) sec INR (<1.2) APTT (22.0-30.0) sec Sodium (137-145) mmol/L Carbon Dioxide (22-30) mmol/L BUN (7-17) mg/dL Creatinine (0.52-1.04) mg/dL Glucose (74-99) mg/dL POC Glucose (mg/dL) 154 H 141 H 74 L (75-99) mg/dL Calcium (8.4-10.2) mg/dL AST (14-36) U/L ALT (9-52) U/L Troponin I (0.000-0.034) ng/mL Total Protein (6.3-8.2) g/dL Albumin (3.5-5.0) g/dL Crossmatch 11/22/18 Range/Units 09:29 WBC (3.8-10.6) k/uL RBC (3.80-5.40) m/uL Hgb (11.4-16.0) gm/dL Hct (34.0-46.0) % MCHC (31.0-37.0) g/dL RDW (11.5-15.5) % PT (9.0-12.0) sec INR (<1.2) APTT (22.0-30.0) sec Sodium (137-145) mmol/L Carbon Dioxide (22-30) mmol/L BUN (7-17) mg/dL Creatinine (0.52-1.04) mg/dL Glucose (74-99) mg/dL POC Glucose (mg/dL) 58 L (75-99) mg/dL Calcium (8.4-10.2) mg/dL AST (14-36) U/L ALT (9-52) U/L Troponin I (0.000-0.034) ng/mL Total Protein (6.3-8.2) g/dL Albumin (3.5-5.0) g/dL Crossmatch Microbiology - Last 24 Hours (Table) 11/21/18 11:54 Gram Stain - Preliminary Sputum Sputum Culture - Preliminary Assessment and Plan Plan: Assessment 1 acute hypoxic respiratory failure, recurrent and the patient had to be reintubated in the intensive care unit. The cause for the recurrent respiratory failure is multifactorial, most significantly related to fluid overload/pulmonary edema as evident on the chest x-ray. Aspiration cannot be completely ruled out. Chest x-ray from today shows no acute abnormalities. Unfortunately, unable to obtain a blood Because of her poor vascular access/ arterial access in this patient. The patient however is actually taking well with her pulse ox above 90% on above-mentioned vent settings. 2 altered mental status secondary to underlying multiple medical problems and comorbidities, arousable upon sedation holidays 3 acute shock/hypovolemic/hemorrhagic shock as the patient is having ongoing GI bleed with drop in hemoglobin down to 6.4. The patient was aggressively resuscitated IV fluids. The patient was given 2 units of packed RBC. Hemoglobin is up to 8. Still having some limited melanotic stools and the patient remains on IV heparin. GI has been on the case. Will inform GI about the above-mentioned changes. Meanwhile, the patient is currently improved and the patient is currently on 2 mics of norepinephrine infusion. The vascular changes and the ischemic necrotic changes in the digits and toes have also improved compared to yesterday and they're looking somewhat improved. 4 severe anemia with hemoglobin down to 6.4 related to GI bleed, transfused with 2 units of packed RBC and subsequent hemoglobin is up to 8.0 5 suspected ischemic colitis with secondary GI bleeding, lactic acid level was nonelevated 6 acute on chronic renal failure and the patient is anuric currently on hemodialysis via a temper dialysis catheter in the right IJ, will need dialysis today. 7 DVT of the right lower extremity currently on IV heparin 8 coronary artery disease with previous bypass surgery in 2008, the patient also developed an acute non-ST segment elevation myocardial infarction with a peak troponin of 7. EKG is not showing any ST segment elevations or depressions. Cardiology is on the case. 9 severe peripheral vascular disease with previous best of bypass surgery to the lower extremities bilaterally 10 necrotic toes, secondary to hypoperfusion in addition to an underlying severe peripheral vascular disease 11 small bilateral pleural effusion right more than left 12 acute non-ST segment elevation myocardial infarction the troponin is up to 7 13 chronic atrial fibrillation with episodes of rapid ventricular response currently well-controlled 14 volume overload 15 systolic heart failure with ejection fraction of 30-35% and severe pulmonary hypertension moderate degree of tricuspid regurgitation 16 chronic stage IV kidney disease secondary to diabetic kidney disease and nephrosclerosis 17 diabetes mellitus 18 poor baseline performance and functional status secondary to above-mentioned comorbidities Plan The patient's condition is critical. We'll proceed with hemodialysis today. Unable to feed this patient and we'll start the patient on TPN for nutritional support. We'll try to get an arterial blood gas. Continue same antibiotic coverage. Monitor hemoglobin. Continue IV heparin. The consult GI regarding the ongoing GI bleed. Cardiology on the case. The findings on the case. Condition is very critical. Continue current antibiotic coverage. Continue the rest of the supportive care will continue to follow make further recommendations based on her progress. We'll meet again with the family and update them on the poor prognosis based on above-mentioned comorbidities. Critically care evaluation, 35 minutes. Time with Patient: Greater than 30
[2018-11-22 11:03] LABS: Glucose,Whole Blood 152 mg/dL (75-99)
--- NOTE | 2018-11-22 11:58 | P.PN ---
Subjective Progress Note Date: 11/22/18 Interval history: 11/21/18- patient is being seen examined and evaluated today on rounds while covering for Dr. Bandar Paul. This patient is admitted to the hospital with altered mental status likely related to the acute renal failure, hypotension, severe sepsis, hypertension, A. fib with RVR, right lower extremity venous thrombosis, chronic intermittent thromboembolism, pulmonary hypertension, biventricular failure, acute on chronic systolic heart failure, acute on chronic renal failure stage IV, small bilateral pleural effusions, morbid obesity. The patient is on propofol currently on hold to assess mentation. And has been on a heparin drip, levophed, and insulin drip as well. The patient was extubated yesterday and did require reintubation overnight. She is on mechanical ventilation assist control mode with a respiratory rate of 20, tidal volume of 500, FiO2 100% and a PEEP of 5. Hemodialysis is currently on hold per nursing staff.. [employer] is following this patient closely as well. Hemoglobin is down to 6.4 today. Troponin is elevated at 7.810 cardiology is following the patient closely. All labs and reports have been reviewed. Prognosis is guarded. 11/22/18- patient is being seen examined and evaluated today while covering for Dr. Bandar Paul. She still remains critically ill and in shock. She was unable to go for dialysis yesterday as she was not stable enough. She continues to receive her fluid she also received 2 units of packed red blood cells and her hemoglobin has improved to 8 today. She still continues to require vasopressors at 2 mics. She is noted to have dark blue digits and toes which are cold to the touch however Doppler pulses are able to be obtained. She has a very poor prognosis. TPN may potentially be started per her brick dropper. Objective - Vital Signs Vital signs: Vital Signs Temp 97.3 F L 11/22/18 00:00 Pulse 66 11/22/18 11:39 Resp 20 11/22/18 08:00 BP 120/45 11/22/18 03:00 Pulse Ox 100 11/22/18 03:00 Intake & Output 11/21/18 11/22/18 11/22/18 18:59 06:59 18:59 Intake Total 2980.053 510.961 377.581 Output Total 1665 0 7 Balance 1315.053 510.961 370.581 Weight 132 kg 131.5 kg 131.5 kg Intake: IV 120 170 100 Sodium Chloride 0.9% 1, 120 170 100 000 ml @ 10 mls/hr IV . Q24H [facility] Rx#:[id number] Intake, IV Titration 2500.053 340.961 277.581 Amount Cefepime 0.5 gm In Sodium 100 50 Chloride 0.9% 50 ml @ 100 mls/hr IVPB Q24HR [facility] Rx#:[id number] Heparin Sod,Pork in 0.45% 153.372 96.628 NaCl 25,000 unit In 0.45 % NaCl 1 250ml.bag @ 8.45 UNITS/KG/HR 9.97 mls/hr IV .Q24H [facility] Rx#: [id number] Insulin Regular 100 unit 23.146 27.742 14.881 In Sodium Chloride 0.9% 100 ml @ Per Protocol IV .Q0M [facility] Rx#:[id number] Lactated Ringers 1,000 ml 2000 @ 999 mls/hr IV .Q1H1M [facility] Rx#:[id number] Norepinephrine 16 mg In 16.375 23.751 12.700 Sodium Chloride 0.9% 250 ml @ Titrate IV .Q0M [facility] Rx#:[id number] Propofol 1,000 mg In 17.16 82.84 100 Empty Bag 1 bag @ Titrate IV .Q0M [facility] Rx#: [id number] Sodium Chloride 0.9% 1, 90 10 000 ml @ 10 mls/hr IV . Q24H [facility] Rx#:[id number] metroNIDAZOLE-NS PMX 500 100 100 100 mg In Saline 1 100ml.bag @ 100 mls/hr IVPB Q8HR [facility] Rx#:[id number] Blood Product 310 Rc As-1 Unit 0 [id number] Rc As-1 Unit 310 [id number] Other 50 Rc As-1 Unit 50 [id number] Output: Urine 15 0 7 Stool 1650 Other: Voiding Method Indwelling Catheter Indwelling Catheter Indwelling Catheter # Voids 0 0 0 - Exam GENERAL EXAM: On mechanical ventilation with propofol for sedation, morbidly obese HEAD: Normocephalic. EYES: Normal reaction of pupils, equal size. NOSE: Clear with pink turbinates. THROAT: No erythema or exudates. NECK: No masses, no JVD. CHEST: No chest wall deformity. LUNGS: Equal air entry with no crackles, wheeze, rhonchi or dullness. Diminished CVS: S1 and S2 normal with no audible mumurs, regular rhythm. ABDOMEN: No hepatosplenomegaly, normal bowel sounds, no guarding or rigidity. EXTREMITIES: +1 edema noted, blue digits and toes, cold to the touch, pedal pulses palpable. CENTRAL NERVOUS SYSTEM: Unable to assess, on sedation - Labs CBC & Chem 7: 11/22/18 04:00 11/22/18 04:00 Labs: Abnormal Lab Results - Last 24 Hours (Table) 11/21/18 11/21/18 11/21/18 Range/Units 11:57 12:34 13:17 WBC (3.8-10.6) k/uL RBC (3.80-5.40) m/uL Hgb (11.4-16.0) gm/dL Hct (34.0-46.0) % RDW (11.5-15.5) % APTT (22.0-30.0) sec Sodium (137-145) mmol/L Carbon Dioxide (22-30) mmol/L BUN (7-17) mg/dL Creatinine (0.52-1.04) mg/dL Glucose (74-99) mg/dL POC Glucose (mg/dL) 164 H 149 H (75-99) mg/dL Calcium (8.4-10.2) mg/dL Troponin I (0.000-0.034) ng/mL Crossmatch See Detail 11/21/18 11/21/18 11/21/18 Range/Units 14:07 15:20 16:45 WBC (3.8-10.6) k/uL RBC (3.80-5.40) m/uL Hgb (11.4-16.0) gm/dL Hct (34.0-46.0) % RDW (11.5-15.5) % APTT (22.0-30.0) sec Sodium (137-145) mmol/L Carbon Dioxide (22-30) mmol/L BUN (7-17) mg/dL Creatinine (0.52-1.04) mg/dL Glucose (74-99) mg/dL POC Glucose (mg/dL) 168 H 142 H 131 H (75-99) mg/dL Calcium (8.4-10.2) mg/dL Troponin I (0.000-0.034) ng/mL Crossmatch 11/21/18 11/21/18 11/21/18 Range/Units 18:22 18:41 20:23 WBC (3.8-10.6) k/uL RBC (3.80-5.40) m/uL Hgb (11.4-16.0) gm/dL Hct (34.0-46.0) % RDW (11.5-15.5) % APTT (22.0-30.0) sec Sodium (137-145) mmol/L Carbon Dioxide (22-30) mmol/L BUN (7-17) mg/dL Creatinine (0.52-1.04) mg/dL Glucose (74-99) mg/dL POC Glucose (mg/dL) 160 H 155 H 176 H (75-99) mg/dL Calcium (8.4-10.2) mg/dL Troponin I (0.000-0.034) ng/mL Crossmatch 11/21/18 11/21/18 11/21/18 Range/Units 20:30 20:30 20:45 WBC 11.0 H (3.8-10.6) k/uL RBC 2.76 L (3.80-5.40) m/uL Hgb 8.5 L D (11.4-16.0) gm/dL Hct 26.5 L (34.0-46.0) % RDW 19.8 H (11.5-15.5) % APTT 42.2 H (22.0-30.0) sec Sodium (137-145) mmol/L Carbon Dioxide (22-30) mmol/L BUN (7-17) mg/dL Creatinine (0.52-1.04) mg/dL Glucose (74-99) mg/dL POC Glucose (mg/dL) (75-99) mg/dL Calcium (8.4-10.2) mg/dL Troponin I 6.780 H* (0.000-0.034) ng/mL Crossmatch 11/21/18 11/21/18 11/22/18 Range/Units 22:01 22:57 00:06 WBC (3.8-10.6) k/uL RBC (3.80-5.40) m/uL Hgb (11.4-16.0) gm/dL Hct (34.0-46.0) % RDW (11.5-15.5) % APTT (22.0-30.0) sec Sodium (137-145) mmol/L Carbon Dioxide (22-30) mmol/L BUN (7-17) mg/dL Creatinine (0.52-1.04) mg/dL Glucose (74-99) mg/dL POC Glucose (mg/dL) 161 H 177 H 138 H (75-99) mg/dL Calcium (8.4-10.2) mg/dL Troponin I (0.000-0.034) ng/mL Crossmatch 11/22/18 11/22/18 11/22/18 Range/Units 01:19 02:01 03:02 WBC (3.8-10.6) k/uL RBC (3.80-5.40) m/uL Hgb (11.4-16.0) gm/dL Hct (34.0-46.0) % RDW (11.5-15.5) % APTT (22.0-30.0) sec Sodium (137-145) mmol/L Carbon Dioxide (22-30) mmol/L BUN (7-17) mg/dL Creatinine (0.52-1.04) mg/dL Glucose (74-99) mg/dL POC Glucose (mg/dL) 174 H 152 H 150 H (75-99) mg/dL Calcium (8.4-10.2) mg/dL Troponin I (0.000-0.034) ng/mL Crossmatch 11/22/18 11/22/18 11/22/18 Range/Units 03:59 04:00 04:00 WBC 11.8 H (3.8-10.6) k/uL RBC 2.71 L (3.80-5.40) m/uL Hgb 8.0 L (11.4-16.0) gm/dL Hct 25.7 L (34.0-46.0) % RDW 19.7 H (11.5-15.5) % APTT 150.4 H* (22.0-30.0) sec Sodium (137-145) mmol/L Carbon Dioxide (22-30) mmol/L BUN (7-17) mg/dL Creatinine (0.52-1.04) mg/dL Glucose (74-99) mg/dL POC Glucose (mg/dL) 194 H (75-99) mg/dL Calcium (8.4-10.2) mg/dL Troponin I (0.000-0.034) ng/mL Crossmatch 11/22/18 11/22/18 11/22/18 Range/Units 04:00 04:00 05:04 WBC (3.8-10.6) k/uL RBC (3.80-5.40) m/uL Hgb (11.4-16.0) gm/dL Hct (34.0-46.0) % RDW (11.5-15.5) % APTT (22.0-30.0) sec Sodium 133 L (137-145) mmol/L Carbon Dioxide 21 L (22-30) mmol/L BUN 109 H* (7-17) mg/dL Creatinine 6.29 H (0.52-1.04) mg/dL Glucose 153 H (74-99) mg/dL POC Glucose (mg/dL) 149 H (75-99) mg/dL Calcium 7.8 L (8.4-10.2) mg/dL Troponin I 7.410 H* (0.000-0.034) ng/mL Crossmatch 11/22/18 11/22/18 11/22/18 Range/Units 06:09 07:03 07:59 WBC (3.8-10.6) k/uL RBC (3.80-5.40) m/uL Hgb (11.4-16.0) gm/dL Hct (34.0-46.0) % RDW (11.5-15.5) % APTT (22.0-30.0) sec Sodium (137-145) mmol/L Carbon Dioxide (22-30) mmol/L BUN (7-17) mg/dL Creatinine (0.52-1.04) mg/dL Glucose (74-99) mg/dL POC Glucose (mg/dL) 154 H 141 H 74 L (75-99) mg/dL Calcium (8.4-10.2) mg/dL Troponin I (0.000-0.034) ng/mL Crossmatch 11/22/18 11/22/18 Range/Units 09:29 10:52 WBC (3.8-10.6) k/uL RBC (3.80-5.40) m/uL Hgb (11.4-16.0) gm/dL Hct (34.0-46.0) % RDW (11.5-15.5) % APTT (22.0-30.0) sec Sodium (137-145) mmol/L Carbon Dioxide (22-30) mmol/L BUN (7-17) mg/dL Creatinine (0.52-1.04) mg/dL Glucose (74-99) mg/dL POC Glucose (mg/dL) 58 L 152 H (75-99) mg/dL Calcium (8.4-10.2) mg/dL Troponin I (0.000-0.034) ng/mL Crossmatch Microbiology - Last 24 Hours (Table) 11/21/18 11:54 Gram Stain - Preliminary Sputum Sputum Culture - Preliminary Assessment and Plan Assessment: Assessment Acute on chronic renal failure Acute hypoxic respiratory failure requiring supplemental oxygen and mechanical ventilation metabolic acidosis Biventricular heart failure PE Severe sepsis Altered mental status and metabolic encephalopathy DVT of the right lower extremity small bilateral pleural effusions Plan Medications have been reviewed and will be continued as ordered. Continue with brick dropper recommendations Mechanical ventilation with propofol for sedation Vasopressor support wean as tolerated Hemodialysis per nephrology Continue to monitor hemoglobin Dietary for nutrition Continue with pulmonary hygiene, coughing and deep breathing exercises, and supportive care. Supplemental oxygen to maintain oxygen saturations of 92% or better. Continue nebulizer treatments. GI and DVT prophylaxis. We will continue to monitor labs/results and adjust treatment as necessary. Further recommendations pending. I, the signing physician performed an examination of the patient, discussed and directed their management with the nurse practitioner. I have reviewed the nurse practitioner's note and agree with the documented findings, orders and plan of care. Nurse practitioner acting as a scribe for the signing physician. Please note we are covering for Dr. Bandar Paul today
[2018-11-22 12:24] LABS: Glucose,Whole Blood 167 mg/dL (75-99)
[2018-11-22] MEDS ORDERED: PARENTERAL ELECTROLYTES 20 ML, MVI, ADULT NO.4 WITH VIT K 10 ML, TRACE (CONC-1ML/DOSE) ... IV ONE ×4 (13:00)
[2018-11-22 13:09] LABS: Glucose,Whole Blood 111 mg/dL (75-99)
[2018-11-22 14:57] LABS: Glucose,Whole Blood 150 mg/dL (75-99)
[2018-11-22 16:02] LABS: Glucose,Whole Blood 146 mg/dL (75-99)
[2018-11-22 17:04] LABS: Glucose,Whole Blood 152 mg/dL (75-99)
[2018-11-22 18:13] LABS: Glucose,Whole Blood 122 mg/dL (75-99)
[2018-11-22 20:16] LABS: Glucose,Whole Blood 167 mg/dL (75-99)
--- NOTE | 2018-11-22 20:16 | PN ---
PROGRESS NOTE Patient is seen for followup for acute kidney injury. She is currently seen on hemodialysis. The patient remains on the vent. She is off Levophed. Urine output remains poor. The output from the fecal management system seems to have decreased. Patient continues to have output from the NG tube. PHYSICAL EXAMINATION: Patient is sedated. She is on the vent. Blood pressure was 113/53 during dialysis. Heart rate about 70 per minute. The patient is afebrile. Examination of the heart S1, S2. Examination of lungs bilateral breath sounds are heard. Abdomen is distended, soft. Examination of lower extremities shows edema 2+ bilaterally. Discoloration of the feet is noted mainly on the right side. FiO2 is at 40%. LABS SHOW: Sodium 133, potassium 4.9, BUN 109, serum creatinine 6.29, hemoglobin of 8.0 g/dL. Troponin was 7.4. ASSESSMENT: 1. Acute kidney injury, acute tubular necrosis, oligoanuric, currently maintained on dialysis. We will plan on dialysis again tomorrow. The patient is tolerating the procedure well. We will try and remove about 2 L as tolerated. 2. Vent dependent respiratory failure associated with fluid overload. The patient was extubated and she was reintubated yesterday and there is a possibility of aspiration as well. 3. Hypotension associated with gastrointestinal bleed and possible sepsis. 4. Gastrointestinal bleed with high suspicion for ischemic bowel. 5. Severe peripheral vascular disease with a history of vascular bypass surgery, bilateral lower extremities. 6. Deep vein thrombosis, right lower extremity, maintained on IV heparin. 7. Chronic kidney disease stage IV secondary to diabetic kidney disease and nephrosclerosis. 8. Acute non ST elevation myocardial infarction. 9. Chronic atrial fibrillation with controlled ventricular response. PLAN: Repeat dialysis in a.m. and increase UF as tolerated. MMODL / IJN: [id number] /
[2018-11-22 21:14] LABS: Glucose,Whole Blood 284 mg/dL (75-99)
[2018-11-22 21:30] LABS: Anisocytosis Moderate; Basophils % (A) 0 %; Eosinophils % (A) 0 %; HCT 24.4 % (34.0-46.0); HGB 7.8 gm/dL (11.4-16.0); Hypochromasia Marked; Lymphocytes # (A) 0.5 k/uL (1.0-4.8); Lymphocytes % (A) 5 %; MCH 30.7 pg (25.0-35.0); MCHC 31.8 g/dL (31.0-37.0); MCV 96.7 fL (80.0-100.0); Macrocytosis Slight; Mean Platelet Volume 7.5; Monocytes # (A) 0.2 k/uL (0-1.0); Monocytes % (A) 2 %; Neutrophils # (A) 9.8 k/uL (1.3-7.7); Neutrophils % (A) 93 %; Platelet Count 177 k/uL (150-450); Poikilocytosis Moderate; RBC 2.53 m/uL (3.80-5.40); WBC 10.6 k/uL (3.8-10.6)
[2018-11-22 21:42] LABS: Calcium 7.6 mg/dL (8.4-10.2); Potassium 4.6 mmol/L (3.5-5.1)
[2018-11-22 22:01] LABS: Glucose,Whole Blood 250 mg/dL (75-99)
[2018-11-22 22:54] LABS: Glucose,Whole Blood 280 mg/dL (75-99)
--- NOTE | 2018-11-22 23:43 | PN ---
PROGRESS NOTE DATE OF SERVICE: 11/22/2018. REASON FOR FOLLOWUP: Possible pneumonia. INTERVAL HISTORY: The patient is currently afebrile. The patient remains to be currently intubated on the vent. Patient FIO2 is down to 50%. No other change has been noted by the nursing staff. PHYSICAL EXAMINATION: On examination, 99 with a pulse of 71, temperature 98. She is 100% on 50% FIO2. General description is a middle-aged female lying in bed in no distress. Respiratory system: Unlabored breathing with decreased breath sounds at the bases. No wheeze. Heart S1, S2. Regular rate and rhythm. Abdomen: No tenderness. LABS: Hemoglobin is 11.8, white count 10.6, BUN of 72, creatinine 4.64. Blood and sputum culture so far negative. DIAGNOSTIC IMPRESSION AND PLAN: Patient with acute respiratory failure, which is likely multifactorial in this patient who does have possible component of pneumonia. The patient white count normalized. Currently on cefepime and Flagyl. Overall prognosis remains to be guarded. Continue supportive care. MMODL / IJN: [id number] /
[2018-11-23 00:13] LABS: Glucose,Whole Blood 167 mg/dL (75-99)
[2018-11-23] MEDS: PROPOFOL 1,000 MG in EMPTY BAG 1 BAG IV SCH ×4 (00:20→21:48)
[2018-11-23] MEDS: metroNIDAZOLE-NS PMX 500 MG in SALINE 1 100ML.BAG IVPB SCH ×3 (00:31→16:32)
[2018-11-23 01:07] LABS: Glucose,Whole Blood 238 mg/dL (75-99)
[2018-11-23 02:10] LABS: Glucose,Whole Blood 278 mg/dL (75-99)
[2018-11-23 03:13] LABS: Glucose,Whole Blood 259 mg/dL (75-99)
[2018-11-23] MEDS: NOREPINEPHRINE 16 MG in SODIUM CHLORIDE 0.9% 250 ML IV SCH (03:55)
[2018-11-23] MEDS: HEPARIN SOD,PORK IN 0.45% NACL 25,000 UNIT in 0.45% NACL 1 250ML.BAG IV SCH (03:55)
[2018-11-23] MEDS: SODIUM CHLORIDE 0.9% 1,000 ML IV SCH (03:56)
[2018-11-23 04:10] LABS: Glucose,Whole Blood 252 mg/dL (75-99)
[2018-11-23 04:23] LABS: ABG Base Excess -4.3 mmol/L; ABG HCO3 22 mmol/L (21-25); ABG Oxygen Saturation 99.2 % (94-97); ABG PCO2 45 mmHg (35-45); ABG PO2 133 mmHg (83-108); ABG TCO2 24 mmol/L (19-24)
[2018-11-23 04:32] LABS: Anisocytosis Moderate; HCT 24.7 % (34.0-46.0); HGB 7.8 gm/dL (11.4-16.0); Hypochromasia Marked; MCH 30.7 pg (25.0-35.0); MCHC 31.5 g/dL (31.0-37.0); MCV 97.6 fL (80.0-100.0); Macrocytosis Moderate; Mean Platelet Volume 7.5; Platelet Count 178 k/uL (150-450); Poikilocytosis Moderate; RBC 2.53 m/uL (3.80-5.40)
[2018-11-23 04:51] LABS: Ionized Calcium 4.5 mg/dL (4.5-5.3)
[2018-11-23 05:07] LABS: Albumin 2.1 g/dL (3.5-5.0); Calcium 7.7 mg/dL (8.4-10.2); Magnesium 2.4 mg/dL (1.6-2.3); Phosphorus 6.4 mg/dL (2.5-4.5); Potassium 4.3 mmol/L (3.5-5.1); Total Bilirubin 0.6 mg/dL (0.2-1.3); Total Protein 4.2 g/dL (6.3-8.2)
[2018-11-23 05:24] LABS: Glucose,Whole Blood 246 mg/dL (75-99)
[2018-11-23 06:24] LABS: Glucose,Whole Blood 214 mg/dL (75-99)
[2018-11-23 07:09] LABS: Glucose,Whole Blood 195 mg/dL (75-99)
--- NOTE | 2018-11-23 07:17 | XR ---
EXAMINATION TYPE: XR chest 1V portable DATE OF EXAM: 11/23/2018 COMPARISON: 11/22/2018 HISTORY: SOB, Follow Up FINDINGS: Indwelling tubes and catheters are unchanged. No change in bibasilar opacities. Stable appearance of the cardio-mediastinal structures at this time. Pleural effusion unchanged. IMPRESSION: 1. Stable portable chest. Clinical correlation and follow up until resolution is recommended.
[2018-11-23] MEDS: ALBUTEROL NEBULIZED 2.5 MG/3 ML INHALATION PRN ×4 (07:46→19:40)
[2018-11-23] MEDS: CALCIUM ACETATE 667 MG CAP PO SCH ×3 (07:52→18:33)
--- NOTE | 2018-11-23 08:02 | PN ---
PROGRESS NOTE Mrs. Monahan is a 58-year-old female with history of premature coronary artery disease, severe peripheral vascular disease, status post coronary artery bypass grafting, end- stage renal disease that came in with progressive abdominal pain, subsequently had respiratory failure, was intubated, subsequently extubated to be reintubated again. She had evidence of severe anemia and was transfused. She is requiring norepinephrine to maintain her blood pressure. She had a troponin elevation and there was a suspicion of mesenteric ischemia. Patient remains intubated on norepinephrine. She is in atrial fibrillation this morning with controlled ventricular response. There is no evidence of ventricular ectopic activity. She has severe peripheral vascular disease with cold and clammy lower extremities and ischemic necrotic changes of the toes. She continues to be at this time on the norepinephrine, amiodarone 200 mg twice a day, Lipitor 40 mg daily, and IV heparin. PHYSICAL EXAMINATION: Blood pressure running in the high 90s, low 100s with a heart rate in the 60s to 70s. LUNGS: Clear anteriorly. HEART: Irregularly, irregular, S1, S2. No S3 with a systolic murmur, no diastolic murmur. ABDOMEN: Soft, obese, no clear organomegaly. EXTREMITIES: +2 edema with necrotic toes and decreased distal pulses. Neurologically she is sedated. LAB DATA: Revealed BUN and creatinine 80 and 4.6, potassium 4.3, hemoglobin of 7.8. IMPRESSION: 1. Respiratory failure, multifactorial with fluid overload and possible infectious process. 2. End-stage renal disease, on hemodialysis. 3. Premature coronary artery disease with status post coronary artery bypass grafting. 4. Severe peripheral disease with necrotic toes. 5. Anemia with possible ischemic bowel. 6. Atrial fibrillation, paroxysmal, on IV heparin. 7. History of severe cardiomyopathy with pulmonary hypertension. 8. Diabetes mellitus. RECOMMENDATION: From the cardiac standpoint, will continue supportive care. Unfortunately, the prognosis remains quite poor in view of her multiorgan failure. MMODL / IJN: [id number] /
[2018-11-23] MEDS: ATORVASTATIN 40 MG TAB PO SCH (08:05)
[2018-11-23] MEDS: PANTOPRAZOLE 40 MG/10 ML VIAL IVP SCH ×2 (08:05→20:28)
[2018-11-23] MEDS: CHLORHEXIDINE GLUCONATE 15 ML CUP MUCOUS MEM SCH ×2 (08:05→20:28)
[2018-11-23] MEDS: AMIODARONE 200 MG TAB PO SCH ×2 (08:05→20:29)
[2018-11-23 08:29] LABS: Glucose,Whole Blood 180 mg/dL (75-99)
[2018-11-23 08:29] LABS: Glucose,Whole Blood 130 mg/dL (75-99)
[2018-11-23 08:29] LABS: Glucose,Whole Blood 81 mg/dL (75-99)
[2018-11-23 08:29] LABS: Glucose,Whole Blood 47 mg/dL (75-99)
[2018-11-23 09:06] LABS: Glucose,Whole Blood 160 mg/dL (75-99)
[2018-11-23 10:45] LABS: Glucose,Whole Blood 171 mg/dL (75-99)
[2018-11-23] MEDS: CEFEPIME 0.5 GM in SODIUM CHLORIDE 0.9% 50 ML IVPB SCH (10:48)
[2018-11-23] MEDS: METOPROLOL TARTRATE 25 MG TAB PO SCH ×2 (11:08→20:29)
[2018-11-23] MEDS: INSULIN REGULAR 100 UNIT in SODIUM CHLORIDE 0.9% 100 ML IV SCH (11:15)
[2018-11-23 11:22] LABS: Glucose,Whole Blood 148 mg/dL (75-99)
--- NOTE | 2018-11-23 11:53 | P.PN ---
Subjective Progress Note Date: 11/23/18 Interval history: 11/21/18- patient is being seen examined and evaluated today on rounds while covering for Dr. Bandar Paul. This patient is admitted to the hospital with altered mental status likely related to the acute renal failure, hypotension, severe sepsis, hypertension, A. fib with RVR, right lower extremity venous thrombosis, chronic intermittent thromboembolism, pulmonary hypertension, biventricular failure, acute on chronic systolic heart failure, acute on chronic renal failure stage IV, small bilateral pleural effusions, morbid obesity. The patient is on propofol currently on hold to assess mentation. And has been on a heparin drip, levophed, and insulin drip as well. The patient was extubated yesterday and did require reintubation overnight. She is on mechanical ventilation assist control mode with a respiratory rate of 20, tidal volume of 500, FiO2 100% and a PEEP of 5. Hemodialysis is currently on hold per nursing staff.. Tube Pusher is following this patient closely as well. Hemoglobin is down to 6.4 today. Troponin is elevated at 7.810 cardiology is following the patient closely. All labs and reports have been reviewed. Prognosis is guarded. 11/22/18- patient is being seen examined and evaluated today while covering for Dr. Bandar Paul. She still remains critically ill and in shock. She was unable to go for dialysis yesterday as she was not stable enough. She continues to receive her fluid she also received 2 units of packed red blood cells and her hemoglobin has improved to 8 today. She still continues to require vasopressors at 2 mics. She is noted to have dark blue digits and toes which are cold to the touch however Doppler pulses are able to be obtained. She has a very poor prognosis. TPN may potentially be started per her orchid hand. 11/23/18- patient is being seen examined and evaluated today while covering for Dr. Bandar Paul. She continues to be critically ill, and on mechanical ventilation. Chest x-ray from this morning is unchanged from previous day. Patient was started on TPN. Digits and toes continue to have blue/purple appearance and cold and clammy to the touch with some possible necrotic changes which is continuing to be monitored. She continues on IV heparin, Levophed, propofol, and insulin drips. Objective - Vital Signs Vital signs: Vital Signs Temp 97.4 F L 11/23/18 08:00 Pulse 81 11/23/18 10:00 Resp 20 11/23/18 10:00 BP 117/61 11/23/18 10:00 Pulse Ox 97 11/23/18 10:00 Intake & Output 11/22/18 11/23/18 11/23/18 18:59 06:59 18:59 Intake Total 921.047 1450.148 244.309 Output Total 2006 0 665 Balance -2642.136 9996.148 -420.691 Weight 131.5 kg 127.1 kg Intake: IV 240 687.40 50 Heparin Sod,Pork in 0.45% 67.40 NaCl 25,000 unit In 0.45 % NaCl 1 250ml.bag @ 8.45 UNITS/KG/HR 9.97 mls/hr IV .Q24H [facility] Rx#: [id number] Parenteral Electrolytes 360 30 20 ml Mvi, Adult No.4 with Vit K 10 ml Trace ( Conc-1Ml/Dose) 1 ml In Amino Acid 5%-D15w 1,000 ml @ 30 mls/hr IV .Q24H [facility] Rx#:[id number] Sodium Chloride 0.9% 1, 240 260 20 000 ml @ 10 mls/hr IV . Q24H [facility] Rx#:[id number] Intake, IV Titration 408.132 652.748 194.309 Amount Cefepime 0.5 gm In Sodium 50 Chloride 0.9% 50 ml @ 100 mls/hr IVPB Q24HR [facility] Rx#:[id number] Heparin Sod,Pork in 0.45% 142.564 26.609 NaCl 25,000 unit In 0.45 % NaCl 1 250ml.bag @ 8.45 UNITS/KG/HR 9.97 mls/hr IV .Q24H [facility] Rx#: [id number] Insulin Regular 100 unit 17.406 5.707 In Sodium Chloride 0.9% 100 ml @ Per Protocol IV .Q0M [facility] Rx#:[id number] Insulin Regular 100 unit 75.508 25.492 In Sodium Chloride 0.9% 100 ml @ Per Protocol IV .Q0M [facility] Rx#:[id number] Norepinephrine 16 mg In 20.726 229.947 42.268 Sodium Chloride 0.9% 250 ml @ Titrate IV .Q0M [facility] Rx#:[id number] Parenteral Electrolytes 120 30 20 ml Mvi, Adult No.4 with Vit K 10 ml Trace ( Conc-1Ml/Dose) 1 ml In Amino Acid 5%-D15w 1,000 ml @ 30 mls/hr IV .Q24H [facility] Rx#:[id number] Propofol 1,000 mg In 100 169.022 99.94 Empty Bag 1 bag @ Titrate IV .Q0M [facility] Rx#: [id number] metroNIDAZOLE-NS PMX 500 100 mg In Saline 1 100ml.bag @ 100 mls/hr IVPB Q8HR [facility] Rx#:[id number] Output: Gastric Drainage 350 Urine 7 0 15 Stool 300 Other 2000 Other: Voiding Method Indwelling Catheter Indwelling Catheter # Voids 0 - Exam GENERAL EXAM: On mechanical ventilation with propofol for sedation, morbidly obese HEAD: Normocephalic. EYES: Normal reaction of pupils, equal size. NOSE: Clear with pink turbinates. THROAT: No erythema or exudates. NECK: No masses, no JVD. CHEST: No chest wall deformity. LUNGS: Equal air entry with no crackles, wheeze, rhonchi or dullness. Diminished CVS: S1 and S2 normal with no audible mumurs, regular rhythm. ABDOMEN: No hepatosplenomegaly, normal bowel sounds, no guarding or rigidity. EXTREMITIES: +1 edema noted, blue digits and toes, cold to the touch, pedal pulses palpable. CENTRAL NERVOUS SYSTEM: Unable to assess, on sedation - Labs CBC & Chem 7: 11/23/18 04:01 11/23/18 04:01 Labs: Abnormal Lab Results - Last 24 Hours (Table) 11/20/18 11/22/18 11/22/18 Range/Units 21:05 09:51 09:53 WBC (3.8-10.6) k/uL RBC (3.80-5.40) m/uL Hgb (11.4-16.0) gm/dL Hct (34.0-46.0) % RDW (11.5-15.5) % Neutrophils # (1.3-7.7) k/uL Lymphocytes # (1.0-4.8) k/uL APTT (22.0-30.0) sec ABG pH (7.35-7.45) ABG pO2 (83-108) mmHg ABG O2 Saturation (94-97) % Sodium (137-145) mmol/L Carbon Dioxide (22-30) mmol/L BUN (7-17) mg/dL Creatinine (0.52-1.04) mg/dL Glucose (74-99) mg/dL POC Glucose (mg/dL) 180 H 47 L 130 H (75-99) mg/dL Calcium (8.4-10.2) mg/dL Phosphorus (2.5-4.5) mg/dL Magnesium (1.6-2.3) mg/dL ALT (9-52) U/L Total Protein (6.3-8.2) g/dL Albumin (3.5-5.0) g/dL Stool Occult Blood (Negative) 11/22/18 11/22/18 11/22/18 Range/Units 11:05 11:30 12:13 WBC (3.8-10.6) k/uL RBC (3.80-5.40) m/uL Hgb (11.4-16.0) gm/dL Hct (34.0-46.0) % RDW (11.5-15.5) % Neutrophils # (1.3-7.7) k/uL Lymphocytes # (1.0-4.8) k/uL APTT 66.2 H (22.0-30.0) sec ABG pH (7.35-7.45) ABG pO2 (83-108) mmHg ABG O2 Saturation (94-97) % Sodium (137-145) mmol/L Carbon Dioxide (22-30) mmol/L BUN (7-17) mg/dL Creatinine (0.52-1.04) mg/dL Glucose (74-99) mg/dL POC Glucose (mg/dL) 167 H (75-99) mg/dL Calcium (8.4-10.2) mg/dL Phosphorus (2.5-4.5) mg/dL Magnesium (1.6-2.3) mg/dL ALT (9-52) U/L Total Protein (6.3-8.2) g/dL Albumin (3.5-5.0) g/dL Stool Occult Blood Positive H (Negative) 11/22/18 11/22/18 11/22/18 Range/Units 12:58 14:47 15:50 WBC (3.8-10.6) k/uL RBC (3.80-5.40) m/uL Hgb (11.4-16.0) gm/dL Hct (34.0-46.0) % RDW (11.5-15.5) % Neutrophils # (1.3-7.7) k/uL Lymphocytes # (1.0-4.8) k/uL APTT (22.0-30.0) sec ABG pH (7.35-7.45) ABG pO2 (83-108) mmHg ABG O2 Saturation (94-97) % Sodium (137-145) mmol/L Carbon Dioxide (22-30) mmol/L BUN (7-17) mg/dL Creatinine (0.52-1.04) mg/dL Glucose (74-99) mg/dL POC Glucose (mg/dL) 111 H 150 H 146 H (75-99) mg/dL Calcium (8.4-10.2) mg/dL Phosphorus (2.5-4.5) mg/dL Magnesium (1.6-2.3) mg/dL ALT (9-52) U/L Total Protein (6.3-8.2) g/dL Albumin (3.5-5.0) g/dL Stool Occult Blood (Negative) 11/22/18 11/22/18 11/22/18 Range/Units 16:53 18:01 20:05 WBC (3.8-10.6) k/uL RBC (3.80-5.40) m/uL Hgb (11.4-16.0) gm/dL Hct (34.0-46.0) % RDW (11.5-15.5) % Neutrophils # (1.3-7.7) k/uL Lymphocytes # (1.0-4.8) k/uL APTT (22.0-30.0) sec ABG pH (7.35-7.45) ABG pO2 (83-108) mmHg ABG O2 Saturation (94-97) % Sodium (137-145) mmol/L Carbon Dioxide (22-30) mmol/L BUN (7-17) mg/dL Creatinine (0.52-1.04) mg/dL Glucose (74-99) mg/dL POC Glucose (mg/dL) 152 H 122 H 167 H (75-99) mg/dL Calcium (8.4-10.2) mg/dL Phosphorus (2.5-4.5) mg/dL Magnesium (1.6-2.3) mg/dL ALT (9-52) U/L Total Protein (6.3-8.2) g/dL Albumin (3.5-5.0) g/dL Stool Occult Blood (Negative) 11/22/18 11/22/18 11/22/18 Range/Units 20:55 20:55 21:03 WBC (3.8-10.6) k/uL RBC 2.53 L (3.80-5.40) m/uL Hgb 7.8 L (11.4-16.0) gm/dL Hct 24.4 L (34.0-46.0) % RDW 21.0 H (11.5-15.5) % Neutrophils # 9.8 H (1.3-7.7) k/uL Lymphocytes # 0.5 L (1.0-4.8) k/uL APTT (22.0-30.0) sec ABG pH (7.35-7.45) ABG pO2 (83-108) mmHg ABG O2 Saturation (94-97) % Sodium 131 L (137-145) mmol/L Carbon Dioxide 19 L (22-30) mmol/L BUN 72 H (7-17) mg/dL Creatinine 4.64 H (0.52-1.04) mg/dL Glucose 234 H (74-99) mg/dL POC Glucose (mg/dL) 284 H (75-99) mg/dL Calcium 7.6 L (8.4-10.2) mg/dL Phosphorus (2.5-4.5) mg/dL Magnesium (1.6-2.3) mg/dL ALT (9-52) U/L Total Protein (6.3-8.2) g/dL Albumin (3.5-5.0) g/dL Stool Occult Blood (Negative) 11/22/18 11/22/18 11/23/18 Range/Units 21:50 22:43 00:01 WBC (3.8-10.6) k/uL RBC (3.80-5.40) m/uL Hgb (11.4-16.0) gm/dL Hct (34.0-46.0) % RDW (11.5-15.5) % Neutrophils # (1.3-7.7) k/uL Lymphocytes # (1.0-4.8) k/uL APTT (22.0-30.0) sec ABG pH (7.35-7.45) ABG pO2 (83-108) mmHg ABG O2 Saturation (94-97) % Sodium (137-145) mmol/L Carbon Dioxide (22-30) mmol/L BUN (7-17) mg/dL Creatinine (0.52-1.04) mg/dL Glucose (74-99) mg/dL POC Glucose (mg/dL) 250 H 280 H 167 H (75-99) mg/dL Calcium (8.4-10.2) mg/dL Phosphorus (2.5-4.5) mg/dL Magnesium (1.6-2.3) mg/dL ALT (9-52) U/L Total Protein (6.3-8.2) g/dL Albumin (3.5-5.0) g/dL Stool Occult Blood (Negative) 11/23/18 11/23/18 11/23/18 Range/Units 00:55 01:59 03:02 WBC (3.8-10.6) k/uL RBC (3.80-5.40) m/uL Hgb (11.4-16.0) gm/dL Hct (34.0-46.0) % RDW (11.5-15.5) % Neutrophils # (1.3-7.7) k/uL Lymphocytes # (1.0-4.8) k/uL APTT (22.0-30.0) sec ABG pH (7.35-7.45) ABG pO2 (83-108) mmHg ABG O2 Saturation (94-97) % Sodium (137-145) mmol/L Carbon Dioxide (22-30) mmol/L BUN (7-17) mg/dL Creatinine (0.52-1.04) mg/dL Glucose (74-99) mg/dL POC Glucose (mg/dL) 238 H 278 H 259 H (75-99) mg/dL Calcium (8.4-10.2) mg/dL Phosphorus (2.5-4.5) mg/dL Magnesium (1.6-2.3) mg/dL ALT (9-52) U/L Total Protein (6.3-8.2) g/dL Albumin (3.5-5.0) g/dL Stool Occult Blood (Negative) 11/23/18 11/23/18 11/23/18 Range/Units 03:58 04:01 04:01 WBC 13.0 H (3.8-10.6) k/uL RBC 2.53 L (3.80-5.40) m/uL Hgb 7.8 L (11.4-16.0) gm/dL Hct 24.7 L (34.0-46.0) % RDW 21.0 H (11.5-15.5) % Neutrophils # (1.3-7.7) k/uL Lymphocytes # (1.0-4.8) k/uL APTT (22.0-30.0) sec ABG pH (7.35-7.45) ABG pO2 (83-108) mmHg ABG O2 Saturation (94-97) % Sodium 133 L (137-145) mmol/L Carbon Dioxide (22-30) mmol/L BUN 80 H (7-17) mg/dL Creatinine 4.61 H (0.52-1.04) mg/dL Glucose 223 H (74-99) mg/dL POC Glucose (mg/dL) 252 H (75-99) mg/dL Calcium 7.7 L (8.4-10.2) mg/dL Phosphorus 6.4 H (2.5-4.5) mg/dL Magnesium 2.4 H (1.6-2.3) mg/dL ALT 153 H (9-52) U/L Total Protein 4.2 L (6.3-8.2) g/dL Albumin 2.1 L (3.5-5.0) g/dL Stool Occult Blood (Negative) 11/23/18 11/23/18 11/23/18 Range/Units 04:01 04:18 05:12 WBC (3.8-10.6) k/uL RBC (3.80-5.40) m/uL Hgb (11.4-16.0) gm/dL Hct (34.0-46.0) % RDW (11.5-15.5) % Neutrophils # (1.3-7.7) k/uL Lymphocytes # (1.0-4.8) k/uL APTT 19.5 L (22.0-30.0) sec ABG pH 7.30 L (7.35-7.45) ABG pO2 133 H (83-108) mmHg ABG O2 Saturation 99.2 H (94-97) % Sodium (137-145) mmol/L Carbon Dioxide (22-30) mmol/L BUN (7-17) mg/dL Creatinine (0.52-1.04) mg/dL Glucose (74-99) mg/dL POC Glucose (mg/dL) 246 H (75-99) mg/dL Calcium (8.4-10.2) mg/dL Phosphorus (2.5-4.5) mg/dL Magnesium (1.6-2.3) mg/dL ALT (9-52) U/L Total Protein (6.3-8.2) g/dL Albumin (3.5-5.0) g/dL Stool Occult Blood (Negative) 11/23/18 11/23/18 11/23/18 Range/Units 06:04 06:13 06:58 WBC (3.8-10.6) k/uL RBC (3.80-5.40) m/uL Hgb (11.4-16.0) gm/dL Hct (34.0-46.0) % RDW (11.5-15.5) % Neutrophils # (1.3-7.7) k/uL Lymphocytes # (1.0-4.8) k/uL APTT 19.7 L (22.0-30.0) sec ABG pH (7.35-7.45) ABG pO2 (83-108) mmHg ABG O2 Saturation (94-97) % Sodium (137-145) mmol/L Carbon Dioxide (22-30) mmol/L BUN (7-17) mg/dL Creatinine (0.52-1.04) mg/dL Glucose (74-99) mg/dL POC Glucose (mg/dL) 214 H 195 H (75-99) mg/dL Calcium (8.4-10.2) mg/dL Phosphorus (2.5-4.5) mg/dL Magnesium (1.6-2.3) mg/dL ALT (9-52) U/L Total Protein (6.3-8.2) g/dL Albumin (3.5-5.0) g/dL Stool Occult Blood (Negative) 11/23/18 11/23/18 11/23/18 Range/Units 08:47 10:16 11:11 WBC (3.8-10.6) k/uL RBC (3.80-5.40) m/uL Hgb (11.4-16.0) gm/dL Hct (34.0-46.0) % RDW (11.5-15.5) % Neutrophils # (1.3-7.7) k/uL Lymphocytes # (1.0-4.8) k/uL APTT (22.0-30.0) sec ABG pH (7.35-7.45) ABG pO2 (83-108) mmHg ABG O2 Saturation (94-97) % Sodium (137-145) mmol/L Carbon Dioxide (22-30) mmol/L BUN (7-17) mg/dL Creatinine (0.52-1.04) mg/dL Glucose (74-99) mg/dL POC Glucose (mg/dL) 160 H 171 H 148 H (75-99) mg/dL Calcium (8.4-10.2) mg/dL Phosphorus (2.5-4.5) mg/dL Magnesium (1.6-2.3) mg/dL ALT (9-52) U/L Total Protein (6.3-8.2) g/dL Albumin (3.5-5.0) g/dL Stool Occult Blood (Negative) Microbiology - Last 24 Hours (Table) 11/21/18 11:54 Gram Stain - Preliminary Sputum Sputum Culture - Preliminary Gram Neg Bacilli 11/21/18 10:20 Blood Culture - Preliminary Blood No Growth after 24 hours Assessment and Plan Assessment: Assessment Acute on chronic renal failure Acute hypoxic respiratory failure requiring supplemental oxygen and mechanical ventilation metabolic acidosis Biventricular heart failure PE Severe sepsis Altered mental status and metabolic encephalopathy DVT of the right lower extremity small bilateral pleural effusions Plan Medications have been reviewed and will be continued as ordered. Continue with orchid hand recommendations Mechanical ventilation with propofol for sedation Vasopressor support wean as tolerated Hemodialysis per nephrology Continue to monitor hemoglobin Dietary for nutrition Insulin drip as ordered Heparin per cardiology Continue with pulmonary hygiene, coughing and deep breathing exercises, and supportive care. Supplemental oxygen to maintain oxygen saturations of 92% or better. Continue nebulizer treatments. GI and DVT prophylaxis. We will continue to monitor labs/results and adjust treatment as necessary. Further recommendations pending. I, the signing physician performed an examination of the patient, discussed and directed their management with the nurse practitioner. I have reviewed the nurse practitioner's note and agree with the documented findings, orders and plan of care. Nurse practitioner acting as a scribe for the signing physician. Please note we are covering for Dr. Bandar Paul today
[2018-11-23 12:19] LABS: Glucose,Whole Blood 133 mg/dL (75-99)
[2018-11-23 13:22] LABS: Glucose,Whole Blood 136 mg/dL (75-99)
[2018-11-23 14:16] LABS: Glucose,Whole Blood 151 mg/dL (75-99)
--- NOTE | 2018-11-23 15:08 | PN ---
PROGRESS NOTE Patient is seen for followup for acute kidney injury. She was dialyzed yesterday. Patient tolerated the procedure well. She will be dialyzed again today and will try to remove about 2 L again. Levophed is at about 4 mcg. It looks like last night it was up to 40 mcg, but it appears that the IV may have been leaking and currently patient is back down to about 4 mcg. She otherwise remains on the vent, sedated. PHYSICAL EXAMINATION: Blood pressure was 98/49 and this morning it was 117/61 with a heart rate of about 80 per minute. Patient is afebrile. Examination of the heart, S1, S2. Examination of the lungs, bilateral breath sounds are heard. Abdomen is soft, obese. Examination of the lower extremities shows bilateral edema with discoloration of the feet, worse on the right side. OPERATIONS RESEARCH DIRECTOR exam cannot be performed. LABS: Show sodium 133, potassium 4.3, chloride 100, BUN 83, serum creatinine 4.6, hemoglobin 7.8 g/dL. ASSESSMENT: 1. Acute kidney injury, acute tubular necrosis, currently oliguric, maintained on hemodialysis. Will continue with daily dialysis as long as patient is able to tolerate it. 2. Volume overload. Will try to remove 2 to 2.5 L again today. Patient tolerated the procedure well yesterday. 3. Anemia with gastrointestinal bleed, possibly related to ischemic bowel. 4. Ventilator dependent respiratory failure. Patient was reintubated partly related to congestive heart failure, and we will continue to dialyze the patient on a daily basis for now. 5. Right lower extremity deep venous thrombosis, maintained on anticoagulation. 6. Atrial fibrillation, currently with controlled ventricular response. 7. Acute myocardial infarction, currently stable. PLAN: Continue with daily dialysis and some increasing UF as tolerated. Overall prognosis is guarded. MMODL / IJN: [id number] /
[2018-11-23 15:16] LABS: Glucose,Whole Blood 125 mg/dL (75-99)
[2018-11-23 16:41] LABS: Glucose,Whole Blood 132 mg/dL (75-99)
[2018-11-23 18:33] LABS: Glucose,Whole Blood 183 mg/dL (75-99)
--- NOTE | 2018-11-23 19:04 | P.PN ---
Subjective Progress Note Date: 11/23/18 This is an extremely sick intensive care unit patient, and my evaluation uncovering this patient for Dr. Gordillo upon his request. I noted the patient's history and review the records. I also met the family including her and the daughter. In summary, the patient is an extensive cardiac history including previous history of coronary artery disease and previous bypass surgery 2008, peripheral artery disease and previous vascular bypass to the lower extremities, CHF with impaired ejection fraction of 35%, pulmonary hypertension, history of chronic renal failure with stage IV kidney disease, chronic atrial fibrillation, previous history of a right lower extremity DVT, bruises support embolism, obstructive sleep apnea, obesity, who has been in the intensive care unit for altered mental status. During the course of the treatment the patient was intubated and placed on mechanical ventilator. During the course of treatments, the patient required pressors and the patient was being treated with levo fed for hemodynamic support. She ultimately went into end-stage renal disease and the patient had to be dialyzed via temporary dialysis catheter that was inserted in the right IJ. During the course of the treatment, the patient was also noted to have episodic GI bleed while being on anticoagulation for DVT. Plastic surgery was also consulted for possibility of an underlying IVC filter placement Rise to my morning rounds, the patient was already decompensating. The nursing staff had called Dr. Gordillo early this morning for issues related diminished level of consciousness, unresponsiveness, worsening shortness of breath and consented the patient may not be able to protect her airways. At that point, in order was given to intubate the patient and put on a mechanical ventilator. The patient was already intubated, arrival. The patient was an assist-control mode of ventilator. The patient had a post intubation chest exit that showed evidence of pulmonary edema. She was around 2 cm above the nieves. The patient had a temporary.scattered on the right and small bilateral pleural effusion right more than left in addition to some atelectatic changes in lung bases bilaterally. Apparently, BiPAP was attempted prior to intubation process however the patient failed the BiPAP. Hemodynamically, the patient is in atrial fibrillation. The patient is currently on a combination of Lopressor 25 mg by mouth twice a day and amiodarone 400 mg by mouth twice a day. Nevertheless, post intubation the patient had to go back on pressors to maintain a mean artery pressure above 65. Urine output was low. The patient was having bloody stool this being collected in a fecal management system. I repeated the hemoglobin that came down to 6.4. At that point a body ordered to liters of IV fluid in the form of normal saline and 2 units of packed RBC. The patient was already on sedation and she was, comfortable. Abdomen was nondistended yet she had significant amount of edema in all 4 extremities. The patient was afebrile. White cell count was not elevated. The patient however the most rated necrotic digits in the feet bilaterally and the pulses were quite diminished in all 4 extremities and there were only obtained by Doppler signal. The PPT was subtherapeutic and adjustments on the heparin infusion is to follow. The blood gas showed a pH of 7.32 with a pCO2 of 42 and pO2 more than 400 and based on that the FiO2 was weaned down to 50% and the PEEP was kept at 5. The patient is a tidal volume of 450. Antibiotics was added on empiric basis and the patient was placed on a combination of cefepime and Flagyl suspecting ischemic colitis as the patient's was having chronic abdominal pain and she is a vasculopath is very much likely that she has symptoms of chronic mesenteric ischemia with possibly an acute ischemic component contributing to her bloody diarrhea. On today's evaluation of 11/22/2018, this patient remains critically ill. The patient is still sedated with Diprivan which is running at 20 g per KG per minute. She can easily aroused from sedation. At times we have also seen and follows some simple commands. As such, neurologically there is adequate function that we think of based on our sedation holiday that were given briefly to this patient. From the pulmonary standpoint, the patient remains on a mechanical ventilator and an assist-control mode with tidal volume of 500, FiO2 of 40% with a PEEP of 5 and the rate of 20. Blood gas was not obtained as the patient does not have any arterial line access at this point in time. The chest x-ray from today shows no significant change compared to yesterday. The patient has small bilateral pleural effusion and atelectatic changes in lung bases. There is a right-sided PICC line catheter in place. ET tube also is in a good location and there is no consolidation or airspace disease. Hemodynamically, the patient received a total of 2 L of IV fluids yesterday in the form of normal saline and the patient also received 2 units of packed RBC. Subsequent hemoglobin came up to 8.0. The patient has been kept on her pressors and currently she is on 2 g per KG of per minute of norepinephrine infusion. Urine output is in order of 0 mL an hour. The patient is a producing any urine output at this point in time. The plan is to proceed with dialysis today. The patient has a temper dialysis catheter in her right IJ. The dose will be done today. In terms of GI bleed, as mentioned the patient had on and off melanotic stools. EGD that was done earlier by GI on 11/10/2018 showed some ischemic changes in the antrum and the body of the stomach. Colonoscopy was not done. I suspect that there may be a ischemic bowel as the patient has symptoms that were typical of chronic mesenteric ischemia as the patient has chronic atherosclerotic disease. The patient is still covered with broad-spectrum antibiotics. Yesterday. Currently the patient is on a combination of IV Flagyl and IV cefepime. She is afebrile. White cell count is not elevated. The cardiac enzymes were positive in the setting of this massive shock state of the patient counted yesterday. Troponin initially came back at 6.8 and subsequently peaked at 7.9. Cardiology is on the case. No interventions are being planned for now. The patient remains nothing by mouth. I think TPN needs to be started on this patient for nutritional support. She remains on IV heparin regarding her right lower extremity DVT. In terms of the ischemic necrotic changes in his digits and toes, these are somewhat improved compared to yesterday. Pulses are obtained by Doppler. No palpable pulses in all 4 extremities that remain cold and clammy. No other significant events overnight. I have elected discussion with the patient's yesterday explained to him the critical nature of the condition. I also think he has a good understanding. I tried to fill in a lot of details regarding her chronic cardiac history, peripheral vascular disease, renal disease, etc. The daughter was more aware and receptive of the ongoing medical problems. On today's evaluation of 11/24/2018, I'm seeing this patient for a follow-up. This patient remains on a mechanical ventilator. She remains intubated. This morning, she doesn't assist-control mode at the rate of 20 with tidal volume of 500 and FiO2 of 40% with a PEEP of 5. The blood gases from today showed a pH of 7.30 with a pCO2 of 44 and pO2 133. Chest x-ray from this morning showed that the tube was in a good location. There was some pulmonary vascular congestion. For the most part the x-ray findings are essentially stable. ET tube was in a good location. The patient indwelling tubes remain unchanged. No significant orotracheal secretions. Hemodynamically, the patient is still low dose pressors which is currently running at 2 g per KG or permanent of norepinephrine infusion. The patient underwent a successful yesterday another session of dialysis was given to her today. Overall she had 2 L of ultrafiltration today and the same was done yesterday. Her volume status is slightly improved. The patient overall looks in significant overload still with extensive edema in all 4 extremities. The patient is afebrile. The patient is on empiric antibiotic coverage utilizing a combination of cefepime and Flagyl. The patient is still having some liquid the body stool with seems to be melanotic in nature. She is on IV protonic stitches on IV heparin regarding a left lower extremity DVT. The cardiac rhythm is atrial fibrillation with a controlled rate. TPN is being utilized and the patient remains nothing by mouth for now. Clinically, she is easily arousable 1. Sedation. A sedation holiday was given to her and the patient was able to follow some simple commands. Based on this, sedation was resumed and currently Diprivan is running at 20 mics. The patient's lower extremities are warm and compared to yesterday. The pulses are very much diminished and there obtained by Doppler signal. No worsening in the digital necrosis both in the fingers or in the feet bilaterally. The white cell count is at 13. Hemoglobin stable at 7.8. No significant metabolic acidosis. Rest of the electrolytes are all stable and within normal limits. Objective - Vital Signs Vital signs: Vital Signs Temp 97.4 F L 11/23/18 16:00 Pulse 93 11/23/18 18:00 Resp 20 11/23/18 18:00 BP 108/47 11/23/18 18:00 Pulse Ox 98 11/23/18 18:00 Intake & Output 11/22/18 11/23/18 11/23/18 18:59 06:59 18:59 Intake Total 131.125 9354.148 1317.576 Output Total 2006 2665 Balance -5967.552 2894.148 -1347.424 Weight 131.5 kg 127.1 kg Intake: IV 240 687.40 870 Heparin Sod,Pork in 0.45% 67.40 NaCl 25,000 unit In 0.45 % NaCl 1 250ml.bag @ 8.45 UNITS/KG/HR 9.97 mls/hr IV .Q24H [facility] Rx#: [id number] Mvi, Adult No.4 with Vit 400 K 10 ml Trace (Conc-1Ml/ Dose) 1 ml Sodium Acetate 20 meq Potassium Chloride 20 meq Calcium Chloride 330 mg In Amino Acid 5%-D15w 1,000 ml @ 80 mls/hr IV .BY DURATION [facility] Rx#:[id number] Parenteral Electrolytes 360 150 20 ml Mvi, Adult No.4 with Vit K 10 ml Trace ( Conc-1Ml/Dose) 1 ml In Amino Acid 5%-D15w 1,000 ml @ 30 mls/hr IV .Q24H [facility] Rx#:[id number] Sodium Chloride 0.9% 1, 240 260 220 000 ml @ 10 mls/hr IV . Q24H [facility] Rx#:[id number] metroNIDAZOLE-NS PMX 500 100 mg In Saline 1 100ml.bag @ 100 mls/hr IVPB Q8HR [facility] Rx#:[id number] Intake, IV Titration 408.132 652.748 447.576 Amount Cefepime 0.5 gm In Sodium 50 50 Chloride 0.9% 50 ml @ 100 mls/hr IVPB Q24HR [facility] Rx#:[id number] Heparin Sod,Pork in 0.45% 142.564 103.004 NaCl 25,000 unit In 0.45 % NaCl 1 250ml.bag @ 8.45 UNITS/KG/HR 9.97 mls/hr IV .Q24H [facility] Rx#: [id number] Insulin Regular 100 unit 17.406 5.707 In Sodium Chloride 0.9% 100 ml @ Per Protocol IV .Q0M [facility] Rx#:[id number] Insulin Regular 100 unit 75.508 38.784 In Sodium Chloride 0.9% 100 ml @ Per Protocol IV .Q0M [facility] Rx#:[id number] Norepinephrine 16 mg In 20.726 229.947 55.661 Sodium Chloride 0.9% 250 ml @ Titrate IV .Q0M [facility] Rx#:[id number] Parenteral Electrolytes 120 30 20 ml Mvi, Adult No.4 with Vit K 10 ml Trace ( Conc-1Ml/Dose) 1 ml In Amino Acid 5%-D15w 1,000 ml @ 30 mls/hr IV .Q24H [facility] Rx#:[id number] Propofol 1,000 mg In 100 169.022 100.127 Empty Bag 1 bag @ Titrate IV .Q0M [facility] Rx#: [id number] metroNIDAZOLE-NS PMX 500 100 100 mg In Saline 1 100ml.bag @ 100 mls/hr IVPB Q8HR [facility] Rx#:[id number] Output: Gastric Drainage 350 Urine 7 0 15 Stool 300 Other 1999 1999 Other: Voiding Method Indwelling Catheter Indwelling Catheter Indwelling Catheter # Voids 0 - Exam Intubated, sedated, comfortable likely distress. Morbidly obese. Cold extremities and addition to ischemic toes bilaterally. Intubated on a mechanical ventilator. Orogastric and orotracheal tube are both in place. Head exam was generally normal. There was no scleral icterus or corneal arcus. Mucous membranes were moist. Neck was supple and without jugular venous distension, thyromegaly, or carotid bruits. Carotids were easily palpable bilaterally. There was no adenopathy. The patient has a right IJ triple lumen catheter/temporary dialysis catheter and exit site is clean. Lungs were clear to auscultation and percussion, and with normal diaphragmatic excursion. No wheezes or rales were noted. Heart sounds are irregular, positive S1-S2, no cervical murmurs could be appreciated. Abdomen is obese soft nontender. Organs cannot be accurately palpated. There is no ascites. No direct or rebound tensile guarding at this point in time. Extremities are cold. Pulses are diminished in all 4 extremities and they're obtained only by Doppler. Necrotic digits in the feet bilaterally. No clubbing. There is edema +1 in all extremities. Skin cold and clammy and addition to necrotic skin changes in the toes of the lower extremity feet bilaterally. Neurologically the patient is sedated, pupils are equal and reactive to light. No facial asymmetry. Motor and sensory functions cannot be accurately obtained. The patient was given a sedation holiday's and the patient would follow occasional simple commands upon demand while being off sedation. - Labs CBC & Chem 7: 11/23/18 04:01 11/23/18 04:01 Labs: Abnormal Lab Results - Last 24 Hours (Table) 11/20/18 11/22/18 11/22/18 Range/Units 21:05 09:51 09:53 WBC (3.8-10.6) k/uL RBC (3.80-5.40) m/uL Hgb (11.4-16.0) gm/dL Hct (34.0-46.0) % RDW (11.5-15.5) % Neutrophils # (1.3-7.7) k/uL Lymphocytes # (1.0-4.8) k/uL APTT (22.0-30.0) sec ABG pH (7.35-7.45) ABG pO2 (83-108) mmHg ABG O2 Saturation (94-97) % Sodium (137-145) mmol/L Carbon Dioxide (22-30) mmol/L BUN (7-17) mg/dL Creatinine (0.52-1.04) mg/dL Glucose (74-99) mg/dL POC Glucose (mg/dL) 180 H 47 L 130 H (75-99) mg/dL Calcium (8.4-10.2) mg/dL Phosphorus (2.5-4.5) mg/dL Magnesium (1.6-2.3) mg/dL ALT (9-52) U/L Total Protein (6.3-8.2) g/dL Albumin (3.5-5.0) g/dL 11/22/18 11/22/18 11/22/18 Range/Units 20:05 20:55 20:55 WBC (3.8-10.6) k/uL RBC 2.53 L (3.80-5.40) m/uL Hgb 7.8 L (11.4-16.0) gm/dL Hct 24.4 L (34.0-46.0) % RDW 21.0 H (11.5-15.5) % Neutrophils # 9.8 H (1.3-7.7) k/uL Lymphocytes # 0.5 L (1.0-4.8) k/uL APTT (22.0-30.0) sec ABG pH (7.35-7.45) ABG pO2 (83-108) mmHg ABG O2 Saturation (94-97) % Sodium 131 L (137-145) mmol/L Carbon Dioxide 19 L (22-30) mmol/L BUN 72 H (7-17) mg/dL Creatinine 4.64 H (0.52-1.04) mg/dL Glucose 234 H (74-99) mg/dL POC Glucose (mg/dL) 167 H (75-99) mg/dL Calcium 7.6 L (8.4-10.2) mg/dL Phosphorus (2.5-4.5) mg/dL Magnesium (1.6-2.3) mg/dL ALT (9-52) U/L Total Protein (6.3-8.2) g/dL Albumin (3.5-5.0) g/dL 11/22/18 11/22/18 11/22/18 Range/Units 21:03 21:50 22:43 WBC (3.8-10.6) k/uL RBC (3.80-5.40) m/uL Hgb (11.4-16.0) gm/dL Hct (34.0-46.0) % RDW (11.5-15.5) % Neutrophils # (1.3-7.7) k/uL Lymphocytes # (1.0-4.8) k/uL APTT (22.0-30.0) sec ABG pH (7.35-7.45) ABG pO2 (83-108) mmHg ABG O2 Saturation (94-97) % Sodium (137-145) mmol/L Carbon Dioxide (22-30) mmol/L BUN (7-17) mg/dL Creatinine (0.52-1.04) mg/dL Glucose (74-99) mg/dL POC Glucose (mg/dL) 284 H 250 H 280 H (75-99) mg/dL Calcium (8.4-10.2) mg/dL Phosphorus (2.5-4.5) mg/dL Magnesium (1.6-2.3) mg/dL ALT (9-52) U/L Total Protein (6.3-8.2) g/dL Albumin (3.5-5.0) g/dL 11/23/18 11/23/18 11/23/18 Range/Units 00:01 00:55 01:59 WBC (3.8-10.6) k/uL RBC (3.80-5.40) m/uL Hgb (11.4-16.0) gm/dL Hct (34.0-46.0) % RDW (11.5-15.5) % Neutrophils # (1.3-7.7) k/uL Lymphocytes # (1.0-4.8) k/uL APTT (22.0-30.0) sec ABG pH (7.35-7.45) ABG pO2 (83-108) mmHg ABG O2 Saturation (94-97) % Sodium (137-145) mmol/L Carbon Dioxide (22-30) mmol/L BUN (7-17) mg/dL Creatinine (0.52-1.04) mg/dL Glucose (74-99) mg/dL POC Glucose (mg/dL) 167 H 238 H 278 H (75-99) mg/dL Calcium (8.4-10.2) mg/dL Phosphorus (2.5-4.5) mg/dL Magnesium (1.6-2.3) mg/dL ALT (9-52) U/L Total Protein (6.3-8.2) g/dL Albumin (3.5-5.0) g/dL 11/23/18 11/23/18 11/23/18 Range/Units 03:02 03:58 04:01 WBC 13.0 H (3.8-10.6) k/uL RBC 2.53 L (3.80-5.40) m/uL Hgb 7.8 L (11.4-16.0) gm/dL Hct 24.7 L (34.0-46.0) % RDW 21.0 H (11.5-15.5) % Neutrophils # (1.3-7.7) k/uL Lymphocytes # (1.0-4.8) k/uL APTT (22.0-30.0) sec ABG pH (7.35-7.45) ABG pO2 (83-108) mmHg ABG O2 Saturation (94-97) % Sodium (137-145) mmol/L Carbon Dioxide (22-30) mmol/L BUN (7-17) mg/dL Creatinine (0.52-1.04) mg/dL Glucose (74-99) mg/dL POC Glucose (mg/dL) 259 H 252 H (75-99) mg/dL Calcium (8.4-10.2) mg/dL Phosphorus (2.5-4.5) mg/dL Magnesium (1.6-2.3) mg/dL ALT (9-52) U/L Total Protein (6.3-8.2) g/dL Albumin (3.5-5.0) g/dL 11/23/18 11/23/18 11/23/18 Range/Units 04:01 04:01 04:18 WBC (3.8-10.6) k/uL RBC (3.80-5.40) m/uL Hgb (11.4-16.0) gm/dL Hct (34.0-46.0) % RDW (11.5-15.5) % Neutrophils # (1.3-7.7) k/uL Lymphocytes # (1.0-4.8) k/uL APTT 19.5 L (22.0-30.0) sec ABG pH 7.30 L (7.35-7.45) ABG pO2 133 H (83-108) mmHg ABG O2 Saturation 99.2 H (94-97) % Sodium 133 L (137-145) mmol/L Carbon Dioxide (22-30) mmol/L BUN 80 H (7-17) mg/dL Creatinine 4.61 H (0.52-1.04) mg/dL Glucose 223 H (74-99) mg/dL POC Glucose (mg/dL) (75-99) mg/dL Calcium 7.7 L (8.4-10.2) mg/dL Phosphorus 6.4 H (2.5-4.5) mg/dL Magnesium 2.4 H (1.6-2.3) mg/dL ALT 153 H (9-52) U/L Total Protein 4.2 L (6.3-8.2) g/dL Albumin 2.1 L (3.5-5.0) g/dL 11/23/18 11/23/18 11/23/18 Range/Units 05:12 06:04 06:13 WBC (3.8-10.6) k/uL RBC (3.80-5.40) m/uL Hgb (11.4-16.0) gm/dL Hct (34.0-46.0) % RDW (11.5-15.5) % Neutrophils # (1.3-7.7) k/uL Lymphocytes # (1.0-4.8) k/uL APTT 19.7 L (22.0-30.0) sec ABG pH (7.35-7.45) ABG pO2 (83-108) mmHg ABG O2 Saturation (94-97) % Sodium (137-145) mmol/L Carbon Dioxide (22-30) mmol/L BUN (7-17) mg/dL Creatinine (0.52-1.04) mg/dL Glucose (74-99) mg/dL POC Glucose (mg/dL) 246 H 214 H (75-99) mg/dL Calcium (8.4-10.2) mg/dL Phosphorus (2.5-4.5) mg/dL Magnesium (1.6-2.3) mg/dL ALT (9-52) U/L Total Protein (6.3-8.2) g/dL Albumin (3.5-5.0) g/dL 11/23/18 11/23/18 11/23/18 Range/Units 06:58 08:47 10:16 WBC (3.8-10.6) k/uL RBC (3.80-5.40) m/uL Hgb (11.4-16.0) gm/dL Hct (34.0-46.0) % RDW (11.5-15.5) % Neutrophils # (1.3-7.7) k/uL Lymphocytes # (1.0-4.8) k/uL APTT (22.0-30.0) sec ABG pH (7.35-7.45) ABG pO2 (83-108) mmHg ABG O2 Saturation (94-97) % Sodium (137-145) mmol/L Carbon Dioxide (22-30) mmol/L BUN (7-17) mg/dL Creatinine (0.52-1.04) mg/dL Glucose (74-99) mg/dL POC Glucose (mg/dL) 195 H 160 H 171 H (75-99) mg/dL Calcium (8.4-10.2) mg/dL Phosphorus (2.5-4.5) mg/dL Magnesium (1.6-2.3) mg/dL ALT (9-52) U/L Total Protein (6.3-8.2) g/dL Albumin (3.5-5.0) g/dL 11/23/18 11/23/18 11/23/18 Range/Units 11:11 12:08 13:10 WBC (3.8-10.6) k/uL RBC (3.80-5.40) m/uL Hgb (11.4-16.0) gm/dL Hct (34.0-46.0) % RDW (11.5-15.5) % Neutrophils # (1.3-7.7) k/uL Lymphocytes # (1.0-4.8) k/uL APTT (22.0-30.0) sec ABG pH (7.35-7.45) ABG pO2 (83-108) mmHg ABG O2 Saturation (94-97) % Sodium (137-145) mmol/L Carbon Dioxide (22-30) mmol/L BUN (7-17) mg/dL Creatinine (0.52-1.04) mg/dL Glucose (74-99) mg/dL POC Glucose (mg/dL) 148 H 133 H 136 H (75-99) mg/dL Calcium (8.4-10.2) mg/dL Phosphorus (2.5-4.5) mg/dL Magnesium (1.6-2.3) mg/dL ALT (9-52) U/L Total Protein (6.3-8.2) g/dL Albumin (3.5-5.0) g/dL 11/23/18 11/23/18 11/23/18 Range/Units 14:02 14:05 15:04 WBC (3.8-10.6) k/uL RBC (3.80-5.40) m/uL Hgb (11.4-16.0) gm/dL Hct (34.0-46.0) % RDW (11.5-15.5) % Neutrophils # (1.3-7.7) k/uL Lymphocytes # (1.0-4.8) k/uL APTT 41.9 H (22.0-30.0) sec ABG pH (7.35-7.45) ABG pO2 (83-108) mmHg ABG O2 Saturation (94-97) % Sodium (137-145) mmol/L Carbon Dioxide (22-30) mmol/L BUN (7-17) mg/dL Creatinine (0.52-1.04) mg/dL Glucose (74-99) mg/dL POC Glucose (mg/dL) 151 H 125 H (75-99) mg/dL Calcium (8.4-10.2) mg/dL Phosphorus (2.5-4.5) mg/dL Magnesium (1.6-2.3) mg/dL ALT (9-52) U/L Total Protein (6.3-8.2) g/dL Albumin (3.5-5.0) g/dL 11/23/18 11/23/18 Range/Units 16:30 18:03 WBC (3.8-10.6) k/uL RBC (3.80-5.40) m/uL Hgb (11.4-16.0) gm/dL Hct (34.0-46.0) % RDW (11.5-15.5) % Neutrophils # (1.3-7.7) k/uL Lymphocytes # (1.0-4.8) k/uL APTT (22.0-30.0) sec ABG pH (7.35-7.45) ABG pO2 (83-108) mmHg ABG O2 Saturation (94-97) % Sodium (137-145) mmol/L Carbon Dioxide (22-30) mmol/L BUN (7-17) mg/dL Creatinine (0.52-1.04) mg/dL Glucose (74-99) mg/dL POC Glucose (mg/dL) 132 H 183 H (75-99) mg/dL Calcium (8.4-10.2) mg/dL Phosphorus (2.5-4.5) mg/dL Magnesium (1.6-2.3) mg/dL ALT (9-52) U/L Total Protein (6.3-8.2) g/dL Albumin (3.5-5.0) g/dL Microbiology - Last 24 Hours (Table) 11/21/18 10:20 Blood Culture - Preliminary Blood No Growth after 48 hours 11/21/18 11:54 Gram Stain - Preliminary Sputum Sputum Culture - Preliminary Gram Neg Bacilli Assessment and Plan Plan: Assessment 1 acute hypoxic respiratory failure, recurrent and the patient had to be reintubated in the intensive care unit. The cause for the recurrent respiratory failure is multifactorial, most significantly related to fluid overload/pulmonary edema as evident on the chest x-ray. Aspiration cannot be completely ruled out. She had a failed extubation approximately 48 hours ago. Since then she has been reintubated. The patient is still on a mechanical ventilator. I had a discussion with the patient's family regarding the possibility of a tracheostomy tube insertion. She was given a sedation holiday and her weaning parameters are still weak and the patient is not strong enough to proceed with a spontaneous breathing trial. I think it check estimate tube is reasonable especially with prolonged intubation mechanical ventilation. The final decision will be done with the next 24 hours. 2 altered mental status secondary to underlying multiple medical problems and comorbidities, arousable upon sedation holidays. The repeat sedation holiday was done today and the patient was arousable following some simple commands. 3 acute shock/hypovolemic/hemorrhagic shock as the patient is having ongoing GI bleed with drop in hemoglobin down to 6.4. She was resuscitated IV fluids and packed RBC. She did improve and she is currently on few mics of norepinephrine infusion for hemodynamic support. She is able to undergo hemodialysis without any major hypotension or hemodynamic changes. Her hemoglobin is stable at 7.8. 4 severe anemia with hemoglobin is stable post packed RBC transfusion. 5 suspected ischemic colitis with secondary GI bleeding, lactic acid level was nonelevated 6 acute on chronic renal failure and the patient is anuric currently on hemodialysis via a temper dialysis catheter in the right IJ, and the patient had 2 [id number] dialysis over the past 24 hours with a total ultrafiltration of 4 L and she was able to tolerate the dialysis without any major difficulties and remained hemodynamically stable. 7 DVT of the right lower extremity currently on IV heparin 8 coronary artery disease with previous bypass surgery in 2008, the patient also developed an acute non-ST segment elevation myocardial infarction with a peak troponin of 7. EKG is not showing any ST segment elevations or depressions. Cardiology is on the case. 9 severe peripheral vascular disease with previous best of bypass surgery to the lower extremities bilaterally 10 necrotic toes, secondary to hypoperfusion in addition to an underlying severe peripheral vascular disease, currently inactive in stable and seems to be better perfusion of the extremities on today's evaluation. 11 small bilateral pleural effusion right more than left 12 acute non-ST segment elevation myocardial infarction the troponin is up to 7 13 chronic atrial fibrillation with episodes of rapid ventricular response currently well-controlled 14 volume overload 15 systolic heart failure with ejection fraction of 30-35% and severe pulmonary hypertension moderate degree of tricuspid regurgitation 16 chronic stage IV kidney disease secondary to diabetic kidney disease and nephrosclerosis, currently on hemodialysis 17 diabetes mellitus 18 poor baseline performance and functional status secondary to above-mentioned comorbidities Plan The patient's condition is critical. Hemodialysis performed today. Sedation holiday was performed. No changes in the vent setting. Continue antibiotics. Wean off pressors if possible. Atelectatic discussion with the patient's family. They understand the poor prognosis. Nevertheless, we will continue with the treatment specially the patient is able to hang on for the time being. We discussed the need for a tracheostomy if treatment needs to be continued. I think it's reasonable thing to consider the next 24-48 hours. Suggest surgical consultation will be obtained regarding a tracheostomy tube insertion. We'll do not a sedation holiday tomorrow. Check weaning parameters. Assessment that is to wean although I'm not optimistic at all that she will wean off special that the patient intubated for a long period of time and she is quite debilitated and weak in addition to above-mentioned comorbidities. Will shoot for daily hemodialysis and ultrafiltration. Watch for any ongoing GI bleed. Monitor hemoglobin. Keep the IV heparin for now. We'll continue to follow. Condition is critical. The sedation was done and more than 55 minutes with an extensive and lengthy discussion with the family to explain to prognosis and outcome which is obviously poorly my opinion. Time with Patient: Greater than 30
[2018-11-23 20:06] LABS: Glucose,Whole Blood 171 mg/dL (75-99)
[2018-11-23 21:08] LABS: Glucose,Whole Blood 205 mg/dL (75-99)
[2018-11-23 22:13] LABS: Glucose,Whole Blood 214 mg/dL (75-99)
--- NOTE | 2018-11-23 22:17 | PN ---
PROGRESS NOTE DATE OF SERVICE: 11/23/2018. REASON FOR FOLLOWUP: Gram-negative pneumonia. INTERVAL HISTORY: The patient is currently afebrile. She is hemodynamically stable requiring only 1 mcg of Levophed. FiO2 is stable. No bleeding tendencies and have some spontaneous . PHYSICAL EXAMINATION: Blood pressure is 124/51 with a pulse of 81, temperature 97.8. She is 99% on 40% FiO2. General description is a middle-aged female lying in bed in no distress. Respiratory system: Unlabored breathing with decreased breath sounds in the bases. No wheeze. Heart S1, S2. Regular rate and rhythm. Abdomen is soft. No tenderness. LABORATORY DATA: Hemoglobin 7.1, white count of 13,000. BUN of 8, creatinine 4.61. DIAGNOSTIC IMPRESSION AND PLAN: Patient with acute respiratory failure which is likely multifactorial in this patient who did have . Sputum now showing gram negative bacilli. The patient is currently covered with to continue. Adjust antibiotic on the basis of the culture report. Continue supportive care. MMODL / IJN: [id number] /
[2018-11-23 23:14] LABS: Glucose,Whole Blood 182 mg/dL (75-99)
[2018-11-24] MEDS: metroNIDAZOLE-NS PMX 500 MG in SALINE 1 100ML.BAG IVPB SCH ×4 (00:04→23:54)
[2018-11-24 00:11] LABS: Glucose,Whole Blood 154 mg/dL (75-99)
[2018-11-24 01:09] LABS: Glucose,Whole Blood 158 mg/dL (75-99)
[2018-11-24 02:08] LABS: Glucose,Whole Blood 134 mg/dL (75-99)
[2018-11-24 03:05] LABS: Glucose,Whole Blood 140 mg/dL (75-99)
[2018-11-24] MEDS: HEPARIN SOD,PORK IN 0.45% NACL 25,000 UNIT in 0.45% NACL 1 250ML.BAG IV SCH (04:09)
[2018-11-24 04:12] LABS: Glucose,Whole Blood 137 mg/dL (75-99)
[2018-11-24] MEDS: INSULIN REGULAR 100 UNIT in SODIUM CHLORIDE 0.9% 100 ML IV SCH ×2 (04:14→23:54)
[2018-11-24] MEDS: SODIUM CHLORIDE 0.9% 1,000 ML IV SCH ×2 (05:02→23:54)
[2018-11-24 05:10] LABS: Glucose,Whole Blood 137 mg/dL (75-99)
[2018-11-24 05:17] LABS: ABG Base Excess -0.8 mmol/L; ABG HCO3 25 mmol/L (21-25); ABG Oxygen Saturation 99.4 % (94-97); ABG PCO2 44 mmHg (35-45); ABG PH 7.36 (7.35-7.45); ABG PO2 121 mmHg (83-108); ABG TCO2 26 mmol/L (19-24)
[2018-11-24 05:44] LABS: Anisocytosis Moderate; HCT 23.5 % (34.0-46.0); HGB 7.2 gm/dL (11.4-16.0); Hypochromasia Marked; MCH 30.2 pg (25.0-35.0); MCHC 30.8 g/dL (31.0-37.0); Macrocytosis Moderate; Mean Platelet Volume 7.5; Platelet Count 147 k/uL (150-450); Poikilocytosis Moderate; RBC 2.39 m/uL (3.80-5.40); RDW 20.7 % (11.5-15.5); WBC 12.8 k/uL (3.8-10.6)
[2018-11-24 06:21] LABS: Glucose,Whole Blood 135 mg/dL (75-99)
--- NOTE | 2018-11-24 06:50 | P.GSCN ---
History of Present Illness Consult date: 11/23/18 Reason for Consult: Tracheostomy, respiratory failure History of present illness: This a 58-year-old female with multiple complicated medical issues. Patient is currently on the ventilator. Patient's ventricular I've asked see her regarding tracheostomy. Past Medical History Past Medical History: Coronary Artery Disease (CAD), COPD, Diabetes Mellitus, Deep Vein Thrombosis (DVT), Eye Disorder, Hyperlipidemia, Hypertension, Liver Disease, Musculoskeletal Disorder, Neurologic Disorder, Pulmonary Embolus (PE), Renal Disease Additional Past Medical History / Comment(s): HX DVT RT LEG, STAGE 3 KIDNEY DISEASE, CATARACTS, RUPTURED DISC L5,S1,GALLSTONES, PVD, NEUROPATHY, BALANCE ISSUES/FALLS, SEASONAL ALLERGIES, MIGRAINES, DDD C-7, DM HAS INSULIN PUMP. History of Any Multi-Drug Resistant Organisms: None Reported Past Surgical History: Back Surgery, Section, Coronary Bypass/CABG, Heart Catheterization Additional Past Surgical History / Comment(s): 06-20-15 HAD AORTA BIFEM BYPASS AT [facility] IN [place], 4 VESSEL CABG 2008, LUMBAR DISECTOMY. Past Anesthesia/Blood Transfusion Reactions: Family History of Problems w/ Anesthesia, Motion Sickness, Postoperative Nausea & Vomiting (PONV) Additional Past Anesthesia/Blood Transfusion Reaction / Comm: VERTIGO. "Sister was under too long, almost ." Smoking Status: Former smoker - Past Family History Brother(s) Family Medical History: CVA/TIA Father Family Medical History: COPD, Hypertension, Myocardial Infarction (CO) Mother Family Medical History: CVA/TIA, Deep Vein Thrombosis (DVT), Myocardial Infarction (CO) Additional Family Medical History / Comment(s): SARITAUERYSM Medications and Allergies Home Medications Medication Instructions Recorded Confirmed Type Metoprolol Succinate (ER) [Toprol 50 mg PO DAILY@1600 07/18/15 11/03/18 History XL] Montelukast Sodium [Singulair] 10 mg PO HS 07/18/15 11/03/18 History Ramipril [Altace] 10 mg PO BID 07/18/15 11/03/18 History Albuterol Sulfate [Proair Hfa] 1 - 2 puff INHALATION RT-QID PRN 09/20/17 History Aspirin 325 mg PO DAILY 09/20/17 11/03/18 History Beclomethasone Dipropionate [Qvar 2 puff INHALATION RT-BID 09/20/17 11/03/18 History 80 mcg] Ergocalciferol (Vitamin D2) 50,000 unit PO FR 05/11/18 11/03/18 History [Vitamin D2] Acetaminophen Tab [Tylenol Tab] 650 mg PO Q6H PRN 11/03/18 11/03/18 History Cetirizine HCl/Pseudoephedrine 1 tab PO DAILY PRN 11/03/18 11/03/18 History [Zyrtec-D Tablet] Ferrous Sulfate [Feosol] 650 mg PO DAILY 11/03/18 11/03/18 History Insulin Aspart (For Pump) [NovoLOG 0.01 unit SQ-PUMP CONTINUOUS 11/03/18 History (For Pump)] [place]-3 Acid Ethyl Esters [Lovaza] 2 gm PO BID 11/03/18 11/03/18 History Pravastatin Sodium [Pravachol] 20 mg PO HS 11/03/18 11/03/18 History Allergies Allergy/AdvReac Type Severity Reaction Status Date / Time penicillin V Allergy BLISTERS Verified 11/03/18 15:59 ON HANDS AND FEET morphine AdvReac Nausea Verified 11/03/18 15:59 sulfamethoxazole AdvReac TOLD NOT Verified 11/03/18 15:59 [From Bactrim] TO TAKE BY KIDNEY trimethoprim [From Bactrim] AdvReac TOLD NOT Verified 11/03/18 15:59 TO TAKE BY KIDNEY Surgical - Exam Vital Signs Temp Pulse Resp BP Pulse Ox 97.3 F L 92 18 179/81 98 11/03/18 15:52 11/03/18 15:52 11/03/18 15:52 11/03/18 15:52 11/03/18 15:52 Morbid obese, on ventilator - Respiratory normal expansion - Abdomen Abdomen: soft Results - Labs 11/24/18 05:20 11/23/18 04:01 Abnormal Lab Results - Last 24 Hours (Table) 11/20/18 11/22/18 11/22/18 Range/Units 21:05 09:51 09:53 WBC (3.8-10.6) k/uL RBC (3.80-5.40) m/uL Hgb (11.4-16.0) gm/dL Hct (34.0-46.0) % MCHC (31.0-37.0) g/dL RDW (11.5-15.5) % Plt Count (150-450) k/uL APTT (22.0-30.0) sec ABG pO2 (83-108) mmHg ABG Total CO2 (19-24) mmol/L ABG O2 Saturation (94-97) % POC Glucose (mg/dL) 180 H 47 L 130 H (75-99) mg/dL 11/23/18 11/23/18 11/23/18 Range/Units 06:04 06:58 08:47 WBC (3.8-10.6) k/uL RBC (3.80-5.40) m/uL Hgb (11.4-16.0) gm/dL Hct (34.0-46.0) % MCHC (31.0-37.0) g/dL RDW (11.5-15.5) % Plt Count (150-450) k/uL APTT 19.7 L (22.0-30.0) sec ABG pO2 (83-108) mmHg ABG Total CO2 (19-24) mmol/L ABG O2 Saturation (94-97) % POC Glucose (mg/dL) 195 H 160 H (75-99) mg/dL 11/23/18 11/23/18 11/23/18 Range/Units 10:16 11:11 12:08 WBC (3.8-10.6) k/uL RBC (3.80-5.40) m/uL Hgb (11.4-16.0) gm/dL Hct (34.0-46.0) % MCHC (31.0-37.0) g/dL RDW (11.5-15.5) % Plt Count (150-450) k/uL APTT (22.0-30.0) sec ABG pO2 (83-108) mmHg ABG Total CO2 (19-24) mmol/L ABG O2 Saturation (94-97) % POC Glucose (mg/dL) 171 H 148 H 133 H (75-99) mg/dL 11/23/18 11/23/18 11/23/18 Range/Units 13:10 14:02 14:05 WBC (3.8-10.6) k/uL RBC (3.80-5.40) m/uL Hgb (11.4-16.0) gm/dL Hct (34.0-46.0) % MCHC (31.0-37.0) g/dL RDW (11.5-15.5) % Plt Count (150-450) k/uL APTT 41.9 H (22.0-30.0) sec ABG pO2 (83-108) mmHg ABG Total CO2 (19-24) mmol/L ABG O2 Saturation (94-97) % POC Glucose (mg/dL) 136 H 151 H (75-99) mg/dL 11/23/18 11/23/18 11/23/18 Range/Units 15:04 16:30 18:03 WBC (3.8-10.6) k/uL RBC (3.80-5.40) m/uL Hgb (11.4-16.0) gm/dL Hct (34.0-46.0) % MCHC (31.0-37.0) g/dL RDW (11.5-15.5) % Plt Count (150-450) k/uL APTT (22.0-30.0) sec ABG pO2 (83-108) mmHg ABG Total CO2 (19-24) mmol/L ABG O2 Saturation (94-97) % POC Glucose (mg/dL) 125 H 132 H 183 H (75-99) mg/dL 11/23/18 11/23/18 11/23/18 Range/Units 19:54 20:57 21:15 WBC (3.8-10.6) k/uL RBC (3.80-5.40) m/uL Hgb (11.4-16.0) gm/dL Hct (34.0-46.0) % MCHC (31.0-37.0) g/dL RDW (11.5-15.5) % Plt Count (150-450) k/uL APTT 102.5 H* (22.0-30.0) sec ABG pO2 (83-108) mmHg ABG Total CO2 (19-24) mmol/L ABG O2 Saturation (94-97) % POC Glucose (mg/dL) 171 H 205 H (75-99) mg/dL 11/23/18 11/23/18 11/24/18 Range/Units 22:01 23:02 00:00 WBC (3.8-10.6) k/uL RBC (3.80-5.40) m/uL Hgb (11.4-16.0) gm/dL Hct (34.0-46.0) % MCHC (31.0-37.0) g/dL RDW (11.5-15.5) % Plt Count (150-450) k/uL APTT (22.0-30.0) sec ABG pO2 (83-108) mmHg ABG Total CO2 (19-24) mmol/L ABG O2 Saturation (94-97) % POC Glucose (mg/dL) 214 H 182 H 154 H (75-99) mg/dL 11/24/18 11/24/18 11/24/18 Range/Units 00:57 02:55 04:00 WBC (3.8-10.6) k/uL RBC (3.80-5.40) m/uL Hgb (11.4-16.0) gm/dL Hct (34.0-46.0) % MCHC (31.0-37.0) g/dL RDW (11.5-15.5) % Plt Count (150-450) k/uL APTT (22.0-30.0) sec ABG pO2 (83-108) mmHg ABG Total CO2 (19-24) mmol/L ABG O2 Saturation (94-97) % POC Glucose (mg/dL) 158 H 140 H 137 H (75-99) mg/dL 11/24/18 11/24/18 11/24/18 Range/Units 04:59 05:11 05:20 WBC 12.8 H (3.8-10.6) k/uL RBC 2.39 L (3.80-5.40) m/uL Hgb 7.2 L (11.4-16.0) gm/dL Hct 23.5 L (34.0-46.0) % MCHC 30.8 L (31.0-37.0) g/dL RDW 20.7 H (11.5-15.5) % Plt Count 147 L (150-450) k/uL APTT (22.0-30.0) sec ABG pO2 121 H (83-108) mmHg ABG Total CO2 26 H (19-24) mmol/L ABG O2 Saturation 99.4 H (94-97) % POC Glucose (mg/dL) 137 H (75-99) mg/dL 11/24/18 11/24/18 Range/Units 05:20 06:10 WBC (3.8-10.6) k/uL RBC (3.80-5.40) m/uL Hgb (11.4-16.0) gm/dL Hct (34.0-46.0) % MCHC (31.0-37.0) g/dL RDW (11.5-15.5) % Plt Count (150-450) k/uL APTT >200.0 H* (22.0-30.0) sec ABG pO2 (83-108) mmHg ABG Total CO2 (19-24) mmol/L ABG O2 Saturation (94-97) % POC Glucose (mg/dL) 135 H (75-99) mg/dL Microbiology - Last 24 Hours (Table) 11/21/18 10:20 Blood Culture - Preliminary Blood No Growth after 48 hours 11/21/18 11:54 Gram Stain - Preliminary Sputum Sputum Culture - Preliminary Gram Neg Bacilli Assessment and Plan Assessment: Respiratory failure. Patient will undergo tracheostomy once family has been consulted and consent has been obtained.
[2018-11-24 07:20] LABS: Glucose,Whole Blood 124 mg/dL (75-99)
[2018-11-24 07:22] LABS: Ionized Calcium 5.2 mg/dL (4.5-5.3)
[2018-11-24 07:34] LABS: Calcium 7.8 mg/dL (8.4-10.2); Magnesium 2.1 mg/dL (1.6-2.3); Phosphorus 4.4 mg/dL (2.5-4.5); Potassium 3.6 mmol/L (3.5-5.1)
--- NOTE | 2018-11-24 07:41 | XR ---
EXAMINATION TYPE: XR chest 1V portable DATE OF EXAM: 11/24/2018 COMPARISON: 11/23/2018 HISTORY: SOB, Follow Up FINDINGS: Indwelling tubes and catheters are unchanged. No change in bibasilar opacities. Stable appearance of the cardio-mediastinal structures at this time. Pleural effusion unchanged. IMPRESSION: 1. Stable portable chest. Clinical correlation and follow up until resolution is recommended.
[2018-11-24] MEDS: CALCIUM ACETATE 667 MG CAP PO SCH ×3 (07:52→16:55)
[2018-11-24] MEDS ORDERED: CALCIUM CHLORIDE 1 GM/10 ML VIAL ONE (07:56)
--- NOTE | 2018-11-24 07:56 | PN ---
PROGRESS NOTE Mrs. Monahan is a 58-year-old female with a history of premature coronary artery disease, status post bypass grafting, history of peripheral disease, end-stage renal disease on hemodialysis, who presented with symptoms of abdominal discomfort and progressive dyspnea, had respiratory failure, was intubated, subsequently extubated to be intubated because of progressive respiratory failure. She remains intubated on low-dose norepinephrine. She is in atrial fibrillation with controlled ventricular response. She is on IV heparin. The plan is possible proceeding with tracheostomy and PEG tube placement. Patient is on TPN at this time. At this time she continues be on amiodarone 200 mg twice a day, Lipitor 40 mg daily, metoprolol tartrate 25 mg twice a day. PHYSICAL EXAMINATION: Blood pressure running in the low 100s with a heart rate in the 80s. LUNGS: Clear anteriorly, no wheezes. HEART: Irregularly, irregular, S1, S2. No S3 with systolic murmur. ABDOMEN: Soft, obese, no organomegaly. EXTREMITIES: +2 edema with necrotic toes and fingers. Neurologically she is intubated, opening eyes to painful stimuli. LAB DATA: Revealed hemoglobin of 7.2, white blood cells12.8. IMPRESSION: 1. Respiratory failure with a combination of fluid overload and possible aspiration pneumonia. 2. History of coronary artery disease, status post coronary artery bypass grafting with known history of ischemic cardiomyopathy and recent non ST-segment elevation myocardial infarction. 3. Paroxysmal atrial fibrillation. 4. Severe peripheral disease with necrotic changes in the digits in the toes. 5. End-stage renal disease, on hemodialysis. 6. Anemia. 7. Diabetes mellitus. RECOMMENDATION: From the cardiac standpoint, will continue supportive care. Unfortunately, the prognosis remains guarded in view of the multiorgan failure. The decision at this point is to proceed with tracheostomy and PEG tube placement tomorrow. Will await further decision by the family. MMODL / IJN: [id number] /
[2018-11-24] MEDS: ALBUTEROL NEBULIZED 2.5 MG/3 ML INHALATION PRN ×2 (08:04→11:55)
[2018-11-24 08:05] LABS: Glucose,Whole Blood 145 mg/dL (75-99)
[2018-11-24] MEDS: PROPOFOL 1,000 MG in EMPTY BAG 1 BAG IV SCH ×2 (08:12→15:37)
[2018-11-24] MEDS: METOPROLOL TARTRATE 25 MG TAB PO SCH ×2 (08:46→20:47)
[2018-11-24] MEDS: ATORVASTATIN 40 MG TAB PO SCH (08:47)
[2018-11-24] MEDS: ALPRAZolam 0.5 MG TAB PO PRN (08:47)
[2018-11-24] MEDS: AMIODARONE 200 MG TAB PO SCH ×2 (08:47→20:47)
[2018-11-24] MEDS: PANTOPRAZOLE 40 MG/10 ML VIAL IVP SCH ×2 (08:47→20:47)
[2018-11-24] MEDS: CHLORHEXIDINE GLUCONATE 15 ML CUP MUCOUS MEM SCH ×2 (08:47→20:47)
[2018-11-24] MEDS: CEFEPIME 1 GM in SODIUM CHLORIDE 0.9% 50 ML IVPB SCH (08:52)
[2018-11-24 09:34] LABS: Glucose,Whole Blood 131 mg/dL (75-99)
[2018-11-24] MEDS: POTASSIUM CHLORIDE 10 MEQ in WATER FOR INJECTION 1 100ML.BAG IVPB SCH ×2 (09:42→10:37)
--- NOTE | 2018-11-24 09:45 | P.PN ---
Subjective Progress Note Date: 11/24/18 This is an extremely sick intensive care unit patient, and my evaluation uncovering this patient for Dr. Gordillo upon his request. I noted the patient's history and review the records. I also met the family including her and the daughter. In summary, the patient is an extensive cardiac history including previous history of coronary artery disease and previous bypass surgery 2008, peripheral artery disease and previous vascular bypass to the lower extremities, CHF with impaired ejection fraction of 35%, pulmonary hypertension, history of chronic renal failure with stage IV kidney disease, chronic atrial fibrillation, previous history of a right lower extremity DVT, bruises support embolism, obstructive sleep apnea, obesity, who has been in the intensive care unit for altered mental status. During the course of the treatment the patient was intubated and placed on mechanical ventilator. During the course of treatments, the patient required pressors and the patient was being treated with levo fed for hemodynamic support. She ultimately went into end-stage renal disease and the patient had to be dialyzed via temporary dialysis catheter that was inserted in the right IJ. During the course of the treatment, the patient was also noted to have episodic GI bleed while being on anticoagulation for DVT. Plastic surgery was also consulted for possibility of an underlying IVC filter placement Rise to my morning rounds, the patient was already decompensating. The nursing staff had called Dr. Gordillo early this morning for issues related diminished level of consciousness, unresponsiveness, worsening shortness of breath and consented the patient may not be able to protect her airways. At that point, in order was given to intubate the patient and put on a mechanical ventilator. The patient was already intubated, arrival. The patient was an assist-control mode of ventilator. The patient had a post intubation chest exit that showed evidence of pulmonary edema. She was around 2 cm above the nieves. The patient had a temporary.scattered on the right and small bilateral pleural effusion right more than left in addition to some atelectatic changes in lung bases bilaterally. Apparently, BiPAP was attempted prior to intubation process however the patient failed the BiPAP. Hemodynamically, the patient is in atrial fibrillation. The patient is currently on a combination of Lopressor 25 mg by mouth twice a day and amiodarone 400 mg by mouth twice a day. Nevertheless, post intubation the patient had to go back on pressors to maintain a mean artery pressure above 65. Urine output was low. The patient was having bloody stool this being collected in a fecal management system. I repeated the hemoglobin that came down to 6.4. At that point a body ordered to liters of IV fluid in the form of normal saline and 2 units of packed RBC. The patient was already on sedation and she was, comfortable. Abdomen was nondistended yet she had significant amount of edema in all 4 extremities. The patient was afebrile. White cell count was not elevated. The patient however the most rated necrotic digits in the feet bilaterally and the pulses were quite diminished in all 4 extremities and there were only obtained by Doppler signal. The PPT was subtherapeutic and adjustments on the heparin infusion is to follow. The blood gas showed a pH of 7.32 with a pCO2 of 42 and pO2 more than 400 and based on that the FiO2 was weaned down to 50% and the PEEP was kept at 5. The patient is a tidal volume of 450. Antibiotics was added on empiric basis and the patient was placed on a combination of cefepime and Flagyl suspecting ischemic colitis as the patient's was having chronic abdominal pain and she is a vasculopath is very much likely that she has symptoms of chronic mesenteric ischemia with possibly an acute ischemic component contributing to her bloody diarrhea. On today's evaluation of 11/22/2018, this patient remains critically ill. The patient is still sedated with Diprivan which is running at 20 g per KG per minute. She can easily aroused from sedation. At times we have also seen and follows some simple commands. As such, neurologically there is adequate function that we think of based on our sedation holiday that were given briefly to this patient. From the pulmonary standpoint, the patient remains on a mechanical ventilator and an assist-control mode with tidal volume of 500, FiO2 of 40% with a PEEP of 5 and the rate of 20. Blood gas was not obtained as the patient does not have any arterial line access at this point in time. The chest x-ray from today shows no significant change compared to yesterday. The patient has small bilateral pleural effusion and atelectatic changes in lung bases. There is a right-sided PICC line catheter in place. ET tube also is in a good location and there is no consolidation or airspace disease. Hemodynamically, the patient received a total of 2 L of IV fluids yesterday in the form of normal saline and the patient also received 2 units of packed RBC. Subsequent hemoglobin came up to 8.0. The patient has been kept on her pressors and currently she is on 2 g per KG of per minute of norepinephrine infusion. Urine output is in order of 0 mL an hour. The patient is a producing any urine output at this point in time. The plan is to proceed with dialysis today. The patient has a temper dialysis catheter in her right IJ. The dose will be done today. In terms of GI bleed, as mentioned the patient had on and off melanotic stools. EGD that was done earlier by GI on 11/10/2018 showed some ischemic changes in the antrum and the body of the stomach. Colonoscopy was not done. I suspect that there may be a ischemic bowel as the patient has symptoms that were typical of chronic mesenteric ischemia as the patient has chronic atherosclerotic disease. The patient is still covered with broad-spectrum antibiotics. Yesterday. Currently the patient is on a combination of IV Flagyl and IV cefepime. She is afebrile. White cell count is not elevated. The cardiac enzymes were positive in the setting of this massive shock state of the patient counted yesterday. Troponin initially came back at 6.8 and subsequently peaked at 7.9. Cardiology is on the case. No interventions are being planned for now. The patient remains nothing by mouth. I think TPN needs to be started on this patient for nutritional support. She remains on IV heparin regarding her right lower extremity DVT. In terms of the ischemic necrotic changes in his digits and toes, these are somewhat improved compared to yesterday. Pulses are obtained by Doppler. No palpable pulses in all 4 extremities that remain cold and clammy. No other significant events overnight. I have elected discussion with the patient's yesterday explained to him the critical nature of the condition. I also think he has a good understanding. I tried to fill in a lot of details regarding her chronic cardiac history, peripheral vascular disease, renal disease, etc. The daughter was more aware and receptive of the ongoing medical problems. On today's evaluation of 11/23/2018, I'm seeing this patient for a follow-up. This patient remains on a mechanical ventilator. She remains intubated. This morning, she is assist-control mode at the rate of 20 with tidal volume of 500 and FiO2 of 40% with a PEEP of 5. The blood gases from today showed a pH of 7.30 with a pCO2 of 44 and pO2 133. Chest x-ray from this morning showed that the tube was in a good location. There was some pulmonary vascular congestion. For the most part the x-ray findings are essentially stable. ET tube was in a good location. The patient indwelling tubes remain unchanged. No significant orotracheal secretions. Hemodynamically, the patient is still low dose pressors which is currently running at 2 g per KG or permanent of norepinephrine infusion. The patient underwent a successful yesterday another session of dialysis was given to her today. Overall she had 2 L of ultrafiltration today and the same was done yesterday. Her volume status is slightly improved. The patient overall looks in significant overload still with extensive edema in all 4 extremities. The patient is afebrile. The patient is on empiric antibiotic coverage utilizing a combination of cefepime and Flagyl. The patient is still having some liquid the body stool with seems to be melanotic in nature. She is on IV protonic stitches on IV heparin regarding a left lower extremity DVT. The cardiac rhythm is atrial fibrillation with a controlled rate. TPN is being utilized and the patient remains nothing by mouth for now. Clinically, she is easily arousable 1. Sedation. A sedation holiday was given to her and the patient was able to follow some simple commands. Based on this, sedation was resumed and currently Diprivan is running at 20 mics. The patient's lower extremities are warm and compared to yesterday. The pulses are very much diminished and there obtained by Doppler signal. No worsening in the digital necrosis both in the fingers or in the feet bilaterally. The white cell count is at 13. Hemoglobin stable at 7.8. No significant metabolic acidosis. Rest of the electrolytes are all stable and within normal limits. On 11/24/2018, patient is being seen in follow-up. Remains in the intensive care unit. Remains on a mechanical ventilator. Vent settings are essentially unchanged. She is on assist control mode of ventilation. Tidal volume is at 500 and FiO2 of 40% and a PEEP of 5. Blood gases showed a pH of 7.36 with a pCO2 of 44 and pO2 of 121. Chest x-ray shows no acute abnormalities. There is improvement in the volume status with some limited bibasilar atelectatic changes. Otherwise no other acute of the masses are noted. Hemodynamically, the patient remains in atrial fibrillation. The patient is still requiring norepinephrine infusion for hemodynamic support and the levo fed is running somewhere between 4 and 5 mg per KG per minute. No urine output. Dialysis was done yesterday another session of dialysis will be done today. We'll proceed with the sedation holiday and checking the patient's weaning parameters. I think overall, the patient may not a be a good candidate for extubation. This has been tried daily, the patient failed. I have opened the discussion of the possibility of needing a tracheostomy with the family. The family was receptive. A surgical consultation will also be obtained. She is not having any GI bleed. Minimal amount of brown to dark stool but is being cannulated in the fecal management system. The patient remains on IV heparin. Hemoglobin stable at 7.2. She is afebrile. She remains on the same antibiotic coverage. She is receiving TPN for nutritional support. She is on insulin drip for blood sugar control. She is also on Diprivan which is currently running at 20 g per KG per minute. She has still extensive edema and third spacing in all 4 extremities. Pulses are diminished in all 4 extremities that there barely palpable and are obtainable by Doppler signals. Cyanotic changes in the digits are seen in the feet and in the hands. Objective - Vital Signs Vital signs: Vital Signs Temp 97.9 F 11/24/18 04:00 Pulse 84 11/24/18 08:20 Resp 23 11/24/18 07:00 BP 90/49 11/24/18 07:00 Pulse Ox 98 11/24/18 07:00 Intake & Output 11/23/18 11/24/18 11/24/18 18:59 06:59 18:59 Intake Total 7264.255 6652.316 141.333 Output Total 2665 258 Balance -9036.528 4440.316 141.333 Weight 128.2 kg Intake: IV 870 1200 100 Mvi, Adult No.4 with Vit 400 960 80 K 10 ml Trace (Conc-1Ml/ Dose) 1 ml Sodium Acetate 20 meq Potassium Chloride 20 meq Calcium Chloride 330 mg In Amino Acid 5%-D15w 1,000 ml @ 80 mls/hr IV .BY DURATION [facility] Rx#:[id number] Parenteral Electrolytes 150 20 ml Mvi, Adult No.4 with Vit K 10 ml Trace ( Conc-1Ml/Dose) 1 ml In Amino Acid 5%-D15w 1,000 ml @ 30 mls/hr IV .Q24H [facility] Rx#:[id number] Sodium Chloride 0.9% 1, 220 240 20 000 ml @ 10 mls/hr IV . Q24H [facility] Rx#:[id number] metroNIDAZOLE-NS PMX 500 100 mg In Saline 1 100ml.bag @ 100 mls/hr IVPB Q8HR [facility] Rx#:[id number] Intake, IV Titration 447.576 572.316 41.333 Amount Cefepime 0.5 gm In Sodium 50 Chloride 0.9% 50 ml @ 100 mls/hr IVPB Q24HR [facility] Rx#:[id number] Heparin Sod,Pork in 0.45% 103.004 269.244 NaCl 25,000 unit In 0.45 % NaCl 1 250ml.bag @ 8.45 UNITS/KG/HR 9.97 mls/hr IV .Q24H [facility] Rx#: [id number] Insulin Regular 100 unit 38.784 87.833 41.333 In Sodium Chloride 0.9% 100 ml @ Per Protocol IV .Q0M [facility] Rx#:[id number] Norepinephrine 16 mg In 55.661 15.366 Sodium Chloride 0.9% 250 ml @ Titrate IV .Q0M [facility] Rx#:[id number] Propofol 1,000 mg In 100.127 199.873 Empty Bag 1 bag @ Titrate IV .Q0M [facility] Rx#: [id number] metroNIDAZOLE-NS PMX 500 100 mg In Saline 1 100ml.bag @ 100 mls/hr IVPB Q8HR [facility] Rx#:[id number] Output: Gastric Drainage 350 250 Urine 15 8 Stool 300 Other 2000 Other: Voiding Method Indwelling Catheter Indwelling Catheter - Exam Intubated, sedated, comfortable likely distress. Morbidly obese. Cold extremities and addition to ischemic toes bilaterally. Intubated on a mechanical ventilator. Orogastric and orotracheal tube are both in place. This morning, the patient is sedated. She'll be given a sedation holiday following completion of the hemodialysis. Head exam was generally normal. There was no scleral icterus or corneal arcus. Mucous membranes were moist. Neck was supple and without jugular venous distension, thyromegaly, or carotid bruits. Carotids were easily palpable bilaterally. There was no adenopathy. The patient has a right IJ triple lumen catheter/temporary dialysis catheter and exit site is clean. Lungs were clear to auscultation and percussion, and with normal diaphragmatic excursion. No wheezes or rales were noted. Heart sounds are irregular, positive S1-S2, no cervical murmurs could be appreciated. Abdomen is obese soft nontender. Organs cannot be accurately palpated. There is no ascites. No direct or rebound tensile guarding at this point in time. Extremities are cold. Pulses are diminished in all 4 extremities and they're obtained only by Doppler. Necrotic digits in the feet bilaterally. No clubbing. There is edema +2 in all extremities. Skin cold and clammy and addition to necrotic skin changes in the toes of the lower extremity feet bilaterally. Neurologically the patient is sedated, pupils are equal and reactive to light. No facial asymmetry. Motor and sensory functions cannot be accurately obtained. The patient was given a sedation holiday yesterday and the patient would follow occasional simple commands upon demand while being off sedation. - Labs CBC & Chem 7: 11/24/18 05:20 11/24/18 05:20 Labs: Abnormal Lab Results - Last 24 Hours (Table) 11/23/18 11/23/18 11/23/18 Range/Units 10:16 11:11 12:08 WBC (3.8-10.6) k/uL RBC (3.80-5.40) m/uL Hgb (11.4-16.0) gm/dL Hct (34.0-46.0) % MCHC (31.0-37.0) g/dL RDW (11.5-15.5) % Plt Count (150-450) k/uL APTT (22.0-30.0) sec ABG pO2 (83-108) mmHg ABG Total CO2 (19-24) mmol/L ABG O2 Saturation (94-97) % Sodium (137-145) mmol/L BUN (7-17) mg/dL Creatinine (0.52-1.04) mg/dL Glucose (74-99) mg/dL POC Glucose (mg/dL) 171 H 148 H 133 H (75-99) mg/dL Calcium (8.4-10.2) mg/dL 11/23/18 11/23/1811/23/19 Range/Units 13:10 14:02 14:05 WBC (3.8-10.6) k/uL RBC (3.80-5.40) m/uL Hgb (11.4-16.0) gm/dL Hct (34.0-46.0) % MCHC (31.0-37.0) g/dL RDW (11.5-15.5) % Plt Count (150-450) k/uL APTT 41.9 H (22.0-30.0) sec ABG pO2 (83-108) mmHg ABG Total CO2 (19-24) mmol/L ABG O2 Saturation (94-97) % Sodium (137-145) mmol/L BUN (7-17) mg/dL Creatinine (0.52-1.04) mg/dL Glucose (74-99) mg/dL POC Glucose (mg/dL) 136 H 151 H (75-99) mg/dL Calcium (8.4-10.2) mg/dL 11/23/18 11/23/18 11/23/18 Range/Units 15:04 16:30 18:03 WBC (3.8-10.6) k/uL RBC (3.80-5.40) m/uL Hgb (11.4-16.0) gm/dL Hct (34.0-46.0) % MCHC (31.0-37.0) g/dL RDW (11.5-15.5) % Plt Count (150-450) k/uL APTT (22.0-30.0) sec ABG pO2 (83-108) mmHg ABG Total CO2 (19-24) mmol/L ABG O2 Saturation (94-97) % Sodium (137-145) mmol/L BUN (7-17) mg/dL Creatinine (0.52-1.04) mg/dL Glucose (74-99) mg/dL POC Glucose (mg/dL) 125 H 132 H 183 H (75-99) mg/dL Calcium (8.4-10.2) mg/dL 11/23/18 11/23/18 11/23/18 Range/Units 19:54 20:57 21:15 WBC (3.8-10.6) k/uL RBC (3.80-5.40) m/uL Hgb (11.4-16.0) gm/dL Hct (34.0-46.0) % MCHC (31.0-37.0) g/dL RDW (11.5-15.5) % Plt Count (150-450) k/uL APTT 102.5 H* (22.0-30.0) sec ABG pO2 (83-108) mmHg ABG Total CO2 (19-24) mmol/L ABG O2 Saturation (94-97) % Sodium (137-145) mmol/L BUN (7-17) mg/dL Creatinine (0.52-1.04) mg/dL Glucose (74-99) mg/dL POC Glucose (mg/dL) 171 H 205 H (75-99) mg/dL Calcium (8.4-10.2) mg/dL 11/23/18 11/23/18 11/24/18 Range/Units 22:01 23:02 00:00 WBC (3.8-10.6) k/uL RBC (3.80-5.40) m/uL Hgb (11.4-16.0) gm/dL Hct (34.0-46.0) % MCHC (31.0-37.0) g/dL RDW (11.5-15.5) % Plt Count (150-450) k/uL APTT (22.0-30.0) sec ABG pO2 (83-108) mmHg ABG Total CO2 (19-24) mmol/L ABG O2 Saturation (94-97) % Sodium (137-145) mmol/L BUN (7-17) mg/dL Creatinine (0.52-1.04) mg/dL Glucose (74-99) mg/dL POC Glucose (mg/dL) 214 H 182 H 154 H (75-99) mg/dL Calcium (8.4-10.2) mg/dL 11/24/18 11/24/18 11/24/18 Range/Units 00:57 02:55 04:00 WBC (3.8-10.6) k/uL RBC (3.80-5.40) m/uL Hgb (11.4-16.0) gm/dL Hct (34.0-46.0) % MCHC (31.0-37.0) g/dL RDW (11.5-15.5) % Plt Count (150-450) k/uL APTT (22.0-30.0) sec ABG pO2 (83-108) mmHg ABG Total CO2 (19-24) mmol/L ABG O2 Saturation (94-97) % Sodium (137-145) mmol/L BUN (7-17) mg/dL Creatinine (0.52-1.04) mg/dL Glucose (74-99) mg/dL POC Glucose (mg/dL) 158 H 140 H 137 H (75-99) mg/dL Calcium (8.4-10.2) mg/dL 11/24/18 11/24/18 11/24/18 Range/Units 04:59 05:11 05:20 WBC 12.8 H (3.8-10.6) k/uL RBC 2.39 L (3.80-5.40) m/uL Hgb 7.2 L (11.4-16.0) gm/dL Hct 23.5 L (34.0-46.0) % MCHC 30.8 L (31.0-37.0) g/dL RDW 20.7 H (11.5-15.5) % Plt Count 147 L (150-450) k/uL APTT (22.0-30.0) sec ABG pO2 121 H (83-108) mmHg ABG Total CO2 26 H (19-24) mmol/L ABG O2 Saturation 99.4 H (94-97) % Sodium (137-145) mmol/L BUN (7-17) mg/dL Creatinine (0.52-1.04) mg/dL Glucose (74-99) mg/dL POC Glucose (mg/dL) 137 H (75-99) mg/dL Calcium (8.4-10.2) mg/dL 11/24/18 11/24/18 11/24/18 Range/Units 05:20 05:20 06:10 WBC (3.8-10.6) k/uL RBC (3.80-5.40) m/uL Hgb (11.4-16.0) gm/dL Hct (34.0-46.0) % MCHC (31.0-37.0) g/dL RDW (11.5-15.5) % Plt Count (150-450) k/uL APTT >200.0 H* (22.0-30.0) sec ABG pO2 (83-108) mmHg ABG Total CO2 (19-24) mmol/L ABG O2 Saturation (94-97) % Sodium 135 L (137-145) mmol/L BUN 65 H (7-17) mg/dL Creatinine 3.91 H (0.52-1.04) mg/dL Glucose 142 H (74-99) mg/dL POC Glucose (mg/dL) 135 H (75-99) mg/dL Calcium 7.8 L (8.4-10.2) mg/dL 11/24/18 11/24/18 11/24/18 Range/Units 06:51 07:08 07:54 WBC (3.8-10.6) k/uL RBC (3.80-5.40) m/uL Hgb (11.4-16.0) gm/dL Hct (34.0-46.0) % MCHC (31.0-37.0) g/dL RDW (11.5-15.5) % Plt Count (150-450) k/uL APTT 47.8 H (22.0-30.0) sec ABG pO2 (83-108) mmHg ABG Total CO2 (19-24) mmol/L ABG O2 Saturation (94-97) % Sodium (137-145) mmol/L BUN (7-17) mg/dL Creatinine (0.52-1.04) mg/dL Glucose (74-99) mg/dL POC Glucose (mg/dL) 124 H 145 H (75-99) mg/dL Calcium (8.4-10.2) mg/dL Microbiology - Last 24 Hours (Table) 11/21/18 10:20 Blood Culture - Preliminary Blood No Growth after 48 hours 11/21/18 11:54 Gram Stain - Preliminary Sputum Sputum Culture - Preliminary Gram Neg Bacilli Assessment and Plan Plan: Assessment 1 acute hypoxic respiratory failure, recurrent and the patient had to be reintubated in the intensive care unit. The cause for the recurrent respiratory failure is multifactorial, most significantly related to fluid overload/pulmonary edema as evident on the chest x-ray. Patient's chest x-ray findings are stable. The oxygenation in general is improved. The patient however may not handle extubation as the patient has multiple other issues in addition to generalized weakness and debility and neuromuscular weakness due to prolonged hospitalization and ICU stay. In any rate, a sedation holiday will be given and and will check the patient's weaning parameters accordingly. 2 altered mental status secondary to underlying multiple medical problems and comorbidities, arousable upon sedation holidays. The repeat sedation holiday was done today and the patient was arousable following some simple commands. 3 acute shock/hypovolemic/hemorrhagic shock/cardiac and possibly combination of all , improved and the patient is on few mics of norepinephrine infusion for blood pressure support. 4 severe anemia with hemoglobin is stable post packed RBC transfusion. the hemoglobin has remained stable while the patient being on IV heparin. Hemoglobin today is at 7.2. 5 suspected ischemic colitis with secondary GI bleeding, lactic acid level was nonelevated 6 acute on chronic renal failure and the patient is anuric currently on hemodialysis via a temper dialysis catheter in the right IJ. The patient has been able to tolerate dialysis. She is having daily dialysis and another session will be given to her today. 7 DVT of the right lower extremity currently on IV heparin 8 coronary artery disease with previous bypass surgery in 2008, the patient also developed an acute non-ST segment elevation myocardial infarction with a peak troponin of 7. EKG is not showing any ST segment elevations or depressions. Cardiology is on the case. 9 severe peripheral vascular disease with previous best of bypass surgery to the lower extremities bilaterally 10 ischemic/necrotic toes and fingers , secondary to hypoperfusion in addition to an underlying severe peripheral vascular disease, currently inactive in stable 11 small bilateral pleural effusion right more than left, improved and stable on today's chest x-ray 12 acute non-ST segment elevation myocardial infarction the troponin is up to 7 13 chronic atrial fibrillation with episodes of rapid ventricular response currently well-controlled 14 volume overload and the patient is having daily dialysis and ultrafiltration 15 systolic heart failure with ejection fraction of 30-35% and severe pulmonary hypertension moderate degree of tricuspid regurgitation 16 chronic stage IV kidney disease secondary to diabetic kidney disease and nephrosclerosis, currently on hemodialysis 17 diabetes mellitus, currently on insulin drip 18 poor baseline performance and functional status secondary to above-mentioned comorbidities Plan The patient's condition remains critical. Proceed with daily hemodialysis.optimize volume status. Continue vent support. Sedation holiday. Check weaning parameters. If weaning parameters remain poor, we'll proceed with a tracheostomy tube insertion with the next 24 hours. Rest of the treatment will be kept unchanged. Prognosis poor as mentioned. Had a lengthy discussion with the family is of extremely limited condition. Patient has been progressively getting more debilitated and weak and I have readjusted the patient would wean off the mechanical ventilator at any point in time. Nevertheless, it's reasonable to check her daily weaning parameters and assess his candidacy to wean. Continue the supportive care. We'll follow. Evaluation was done more than 30 minutes. Time with Patient: Greater than 30
[2018-11-24 10:32] LABS: Glucose,Whole Blood 136 mg/dL (75-99)
--- NOTE | 2018-11-24 10:38 | P.PN ---
Subjective Progress Note Date: 11/24/18 Interval history: 11/21/18- patient is being seen examined and evaluated today on rounds while covering for Dr. Bandar Paul. This patient is admitted to the hospital with altered mental status likely related to the acute renal failure, hypotension, severe sepsis, hypertension, A. fib with RVR, right lower extremity venous thrombosis, chronic intermittent thromboembolism, pulmonary hypertension, biventricular failure, acute on chronic systolic heart failure, acute on chronic renal failure stage IV, small bilateral pleural effusions, morbid obesity. The patient is on propofol currently on hold to assess mentation. And has been on a heparin drip, levophed, and insulin drip as well. The patient was extubated yesterday and did require reintubation overnight. She is on mechanical ventilation assist control mode with a respiratory rate of 20, tidal volume of 500, FiO2 100% and a PEEP of 5. Hemodialysis is currently on hold per nursing staff.. Medical Service Representative is following this patient closely as well. Hemoglobin is down to 6.4 today. Troponin is elevated at 7.810 cardiology is following the patient closely. All labs and reports have been reviewed. Prognosis is guarded. 11/22/18- patient is being seen examined and evaluated today while covering for Dr. Bandar Paul. She still remains critically ill and in shock. She was unable to go for dialysis yesterday as she was not stable enough. She continues to receive her fluid she also received 2 units of packed red blood cells and her hemoglobin has improved to 8 today. She still continues to require vasopressors at 2 mics. She is noted to have dark blue digits and toes which are cold to the touch however Doppler pulses are able to be obtained. She has a very poor prognosis. TPN may potentially be started per her student counsellor. 11/23/18- patient is being seen examined and evaluated today while covering for Dr. Bandar Paul. She continues to be critically ill, and on mechanical ventilation. Chest x-ray from this morning is unchanged from previous day. Patient was started on TPN. Digits and toes continue to have blue/purple appearance and cold and clammy to the touch with some possible necrotic changes which is continuing to be monitored. She continues on IV heparin, Levophed, propofol, and insulin drips. 11/24/18- patient is being seen examined and evaluated today while covering for Dr. Bandar Paul. The patient continues in the intensive care unit and is critical. Currently she is on spontaneous breathing trials. Her sedation has been weaned off. She is able to follow somewhat simple commands. She still has required Levophed for blood pressure support. Urine output has been ill. She did have dialysis yesterday and is supposed to have dialysis again today. She continues to receive TPN for nutrition., Insulin drip for blood sugar control. Continues with digits and toes being blue/purple appearance and cold and clammy to the touch, pulses obtainable by Doppler only. All labs and reports reviewed. Objective - Vital Signs Vital signs: Vital Signs Temp 97.9 F 11/24/18 04:00 Pulse 84 11/24/18 08:20 Resp 23 11/24/18 07:00 BP 90/49 11/24/18 07:00 Pulse Ox 98 11/24/18 07:00 Intake & Output 11/23/18 11/24/18 11/24/18 18:59 06:59 18:59 Intake Total 4891.231 2412.316 210.283 Output Total 2665 258 Balance -9162.439 3041.316 210.283 Weight 128.2 kg Intake: IV 870 1200 100 Mvi, Adult No.4 with Vit 400 960 80 K 10 ml Trace (Conc-1Ml/ Dose) 1 ml Sodium Acetate 20 meq Potassium Chloride 20 meq Calcium Chloride 330 mg In Amino Acid 5%-D15w 1,000 ml @ 80 mls/hr IV .BY DURATION [facility] Rx#:[id number] Parenteral Electrolytes 150 20 ml Mvi, Adult No.4 with Vit K 10 ml Trace ( Conc-1Ml/Dose) 1 ml In Amino Acid 5%-D15w 1,000 ml @ 30 mls/hr IV .Q24H [facility] Rx#:[id number] Sodium Chloride 0.9% 1, 220 240 20 000 ml @ 10 mls/hr IV . Q24H [facility] Rx#:[id number] metroNIDAZOLE-NS PMX 500 100 mg In Saline 1 100ml.bag @ 100 mls/hr IVPB Q8HR [facility] Rx#:[id number] Intake, IV Titration 447.576 572.316 110.283 Amount Cefepime 0.5 gm In Sodium 50 Chloride 0.9% 50 ml @ 100 mls/hr IVPB Q24HR [facility] Rx#:[id number] Heparin Sod,Pork in 0.45% 103.004 269.244 NaCl 25,000 unit In 0.45 % NaCl 1 250ml.bag @ 8.45 UNITS/KG/HR 9.97 mls/hr IV .Q24H [facility] Rx#: [id number] Insulin Regular 100 unit 38.784 87.833 41.333 In Sodium Chloride 0.9% 100 ml @ Per Protocol IV .Q0M [facility] Rx#:[id number] Norepinephrine 16 mg In 55.661 15.366 49.125 Sodium Chloride 0.9% 250 ml @ Titrate IV .Q0M [facility] Rx#:[id number] Propofol 1,000 mg In 100.127 199.873 19.825 Empty Bag 1 bag @ Titrate IV .Q0M [facility] Rx#: [id number] metroNIDAZOLE-NS PMX 500 100 mg In Saline 1 100ml.bag @ 100 mls/hr IVPB Q8HR [facility] Rx#:[id number] Output: Gastric Drainage 350 250 Urine 15 8 Stool 300 Other 2000 Other: Voiding Method Indwelling Catheter Indwelling Catheter - Exam GENERAL EXAM: On mechanical ventilation with propofol for sedation, morbidly obese HEAD: Normocephalic. EYES: Normal reaction of pupils, equal size. NOSE: Clear with pink turbinates. THROAT: No erythema or exudates. NECK: No masses, no JVD. CHEST: No chest wall deformity. LUNGS: Equal air entry with no crackles, wheeze, rhonchi or dullness. Diminished CVS: S1 and S2 normal with no audible mumurs, regular rhythm. ABDOMEN: No hepatosplenomegaly, normal bowel sounds, no guarding or rigidity. EXTREMITIES: +1 edema noted, blue digits and toes, cold to the touch, pedal pulses obtainable with Doppler. CENTRAL NERVOUS SYSTEM: Unable to assess, on sedation - Labs CBC & Chem 7: 11/24/18 05:20 11/24/18 05:20 Labs: Abnormal Lab Results - Last 24 Hours (Table) 11/23/18 11/23/18 11/23/18 Range/Units 10:16 11:11 12:08 WBC (3.8-10.6) k/uL RBC (3.80-5.40) m/uL Hgb (11.4-16.0) gm/dL Hct (34.0-46.0) % MCHC (31.0-37.0) g/dL RDW (11.5-15.5) % Plt Count (150-450) k/uL APTT (22.0-30.0) sec ABG pO2 (83-108) mmHg ABG Total CO2 (19-24) mmol/L ABG O2 Saturation (94-97) % Sodium (137-145) mmol/L BUN (7-17) mg/dL Creatinine (0.52-1.04) mg/dL Glucose (74-99) mg/dL POC Glucose (mg/dL) 171 H 148 H 133 H (75-99) mg/dL Calcium (8.4-10.2) mg/dL 11/23/18 11/23/18 11/23/18 Range/Units 13:10 14:02 14:05 WBC (3.8-10.6) k/uL RBC (3.80-5.40) m/uL Hgb (11.4-16.0) gm/dL Hct (34.0-46.0) % MCHC (31.0-37.0) g/dL RDW (11.5-15.5) % Plt Count (150-450) k/uL APTT 41.9 H (22.0-30.0) sec ABG pO2 (83-108) mmHg ABG Total CO2 (19-24) mmol/L ABG O2 Saturation (94-97) % Sodium (137-145) mmol/L BUN (7-17) mg/dL Creatinine (0.52-1.04) mg/dL Glucose (74-99) mg/dL POC Glucose (mg/dL) 136 H 151 H (75-99) mg/dL Calcium (8.4-10.2) mg/dL 11/23/18 11/23/18 11/23/18 Range/Units 15:04 16:30 18:03 WBC (3.8-10.6) k/uL RBC (3.80-5.40) m/uL Hgb (11.4-16.0) gm/dL Hct (34.0-46.0) % MCHC (31.0-37.0) g/dL RDW (11.5-15.5) % Plt Count (150-450) k/uL APTT (22.0-30.0) sec ABG pO2 (83-108) mmHg ABG Total CO2 (19-24) mmol/L ABG O2 Saturation (94-97) % Sodium (137-145) mmol/L BUN (7-17) mg/dL Creatinine (0.52-1.04) mg/dL Glucose (74-99) mg/dL POC Glucose (mg/dL) 125 H 132 H 183 H (75-99) mg/dL Calcium (8.4-10.2) mg/dL 11/23/18 11/23/18 11/23/18 Range/Units 19:54 20:57 21:15 WBC (3.8-10.6) k/uL RBC (3.80-5.40) m/uL Hgb (11.4-16.0) gm/dL Hct (34.0-46.0) % MCHC (31.0-37.0) g/dL RDW (11.5-15.5) % Plt Count (150-450) k/uL APTT 102.5 H* (22.0-30.0) sec ABG pO2 (83-108) mmHg ABG Total CO2 (19-24) mmol/L ABG O2 Saturation (94-97) % Sodium (137-145) mmol/L BUN (7-17) mg/dL Creatinine (0.52-1.04) mg/dL Glucose (74-99) mg/dL POC Glucose (mg/dL) 171 H 205 H (75-99) mg/dL Calcium (8.4-10.2) mg/dL 11/23/18 11/23/18 11/24/18 Range/Units 22:01 23:02 00:00 WBC (3.8-10.6) k/uL RBC (3.80-5.40) m/uL Hgb (11.4-16.0) gm/dL Hct (34.0-46.0) % MCHC (31.0-37.0) g/dL RDW (11.5-15.5) % Plt Count (150-450) k/uL APTT (22.0-30.0) sec ABG pO2 (83-108) mmHg ABG Total CO2 (19-24) mmol/L ABG O2 Saturation (94-97) % Sodium (137-145) mmol/L BUN (7-17) mg/dL Creatinine (0.52-1.04) mg/dL Glucose (74-99) mg/dL POC Glucose (mg/dL) 214 H 182 H 154 H (75-99) mg/dL Calcium (8.4-10.2) mg/dL 11/24/18 11/24/18 11/24/18 Range/Units 00:57 02:55 04:00 WBC (3.8-10.6) k/uL RBC (3.80-5.40) m/uL Hgb (11.4-16.0) gm/dL Hct (34.0-46.0) % MCHC (31.0-37.0) g/dL RDW (11.5-15.5) % Plt Count (150-450) k/uL APTT (22.0-30.0) sec ABG pO2 (83-108) mmHg ABG Total CO2 (19-24) mmol/L ABG O2 Saturation (94-97) % Sodium (137-145) mmol/L BUN (7-17) mg/dL Creatinine (0.52-1.04) mg/dL Glucose (74-99) mg/dL POC Glucose (mg/dL) 158 H 140 H 137 H (75-99) mg/dL Calcium (8.4-10.2) mg/dL 11/24/18 11/24/18 11/24/18 Range/Units 04:59 05:11 05:20 WBC 12.8 H (3.8-10.6) k/uL RBC 2.39 L (3.80-5.40) m/uL Hgb 7.2 L (11.4-16.0) gm/dL Hct 23.5 L (34.0-46.0) % MCHC 30.8 L (31.0-37.0) g/dL RDW 20.7 H (11.5-15.5) % Plt Count 147 L (150-450) k/uL APTT (22.0-30.0) sec ABG pO2 121 H (83-108) mmHg ABG Total CO2 26 H (19-24) mmol/L ABG O2 Saturation 99.4 H (94-97) % Sodium (137-145) mmol/L BUN (7-17) mg/dL Creatinine (0.52-1.04) mg/dL Glucose (74-99) mg/dL POC Glucose (mg/dL) 137 H (75-99) mg/dL Calcium (8.4-10.2) mg/dL 11/24/18 11/24/18 11/24/18 Range/Units 05:20 05:20 06:10 WBC (3.8-10.6) k/uL RBC (3.80-5.40) m/uL Hgb (11.4-16.0) gm/dL Hct (34.0-46.0) % MCHC (31.0-37.0) g/dL RDW (11.5-15.5) % Plt Count (150-450) k/uL APTT >200.0 H* (22.0-30.0) sec ABG pO2 (83-108) mmHg ABG Total CO2 (19-24) mmol/L ABG O2 Saturation (94-97) % Sodium 135 L (137-145) mmol/L BUN 65 H (7-17) mg/dL Creatinine 3.91 H (0.52-1.04) mg/dL Glucose 142 H (74-99) mg/dL POC Glucose (mg/dL) 135 H (75-99) mg/dL Calcium 7.8 L (8.4-10.2) mg/dL 11/24/18 11/24/18 11/24/18 Range/Units 06:51 07:08 07:54 WBC (3.8-10.6) k/uL RBC (3.80-5.40) m/uL Hgb (11.4-16.0) gm/dL Hct (34.0-46.0) % MCHC (31.0-37.0) g/dL RDW (11.5-15.5) % Plt Count (150-450) k/uL APTT 47.8 H (22.0-30.0) sec ABG pO2 (83-108) mmHg ABG Total CO2 (19-24) mmol/L ABG O2 Saturation (94-97) % Sodium (137-145) mmol/L BUN (7-17) mg/dL Creatinine (0.52-1.04) mg/dL Glucose (74-99) mg/dL POC Glucose (mg/dL) 124 H 145 H (75-99) mg/dL Calcium (8.4-10.2) mg/dL 11/24/18 Range/Units 09:23 WBC (3.8-10.6) k/uL RBC (3.80-5.40) m/uL Hgb (11.4-16.0) gm/dL Hct (34.0-46.0) % MCHC (31.0-37.0) g/dL RDW (11.5-15.5) % Plt Count (150-450) k/uL APTT (22.0-30.0) sec ABG pO2 (83-108) mmHg ABG Total CO2 (19-24) mmol/L ABG O2 Saturation (94-97) % Sodium (137-145) mmol/L BUN (7-17) mg/dL Creatinine (0.52-1.04) mg/dL Glucose (74-99) mg/dL POC Glucose (mg/dL) 131 H (75-99) mg/dL Calcium (8.4-10.2) mg/dL Microbiology - Last 24 Hours (Table) 11/21/18 10:20 Blood Culture - Preliminary Blood No Growth after 48 hours 11/21/18 11:54 Gram Stain - Preliminary Sputum Sputum Culture - Preliminary Gram Neg Bacilli Assessment and Plan Assessment: Assessment Acute on chronic renal failure Acute hypoxic respiratory failure requiring supplemental oxygen and mechanical ventilation metabolic acidosis Biventricular heart failure PE Severe sepsis Altered mental status and metabolic encephalopathy DVT of the right lower extremity small bilateral pleural effusions Plan Medications have been reviewed and will be continued as ordered. Continue with student counsellor recommendations Mechanical ventilation with propofol for sedation Vasopressor support wean as tolerated Hemodialysis per nephrology Continue to monitor hemoglobin Dietary for nutrition Insulin drip as ordered Heparin per cardiology Continue with pulmonary hygiene, coughing and deep breathing exercises, and supportive care. Supplemental oxygen to maintain oxygen saturations of 92% or better. Continue nebulizer treatments. GI and DVT prophylaxis. We will continue to monitor labs/results and adjust treatment as necessary. Further recommendations pending. I, the signing physician performed an examination of the patient, discussed and directed their management with the nurse practitioner. I have reviewed the nurse practitioner's note and agree with the documented findings, orders and plan of care. Nurse practitioner acting as a scribe for the signing physician. Please note we are covering for Dr. Bandar Paul today
[2018-11-24 11:32] LABS: Glucose,Whole Blood 127 mg/dL (75-99)
--- NOTE | 2018-11-24 12:01 | P.PN ---
Progress Note - Text Progress Note Date: 11/24/18 The patient's tracheostomy was put on hold by the family. The patient remains in critical stable condition. The patient will be rescheduled for tracheostomy once consent has been obtained.
--- NOTE | 2018-11-24 12:11 | P.PN ---
Subjective Patient is seen in follow-up for acute kidney injury on chronic kidney disease. Patient has chronic kidney disease stage IV with baseline creatinine near 3 secondary to diabetic kidney disease. Due to worsening renal function and oliguria, she was started on hemodialysis on November 07. She has a right IJ catheter. She remains intubated. Currently on 12 mics of Levophed. Remains oliguric. No active bleeding. Tolerated hemodialysis well yesterday. Currently seen while undergoing HD. Afebrile. Currently on vasopressors. General: The patient appeared well nourished and normally developed. HEENT: Head exam is unremarkable. Neck is without jugular venous distension. Intubated. LUNGS: Breath sounds decreased. HEART: Rate and Rhythm are regular. First and second heart sounds normal. No murmurs, rubs or gallops. ABDOMEN: Abdominal exam reveals normal bowel sounds. Non-tender and non- distended. No evidence of peritonitis. EXTREMITITES: 1+ edema. Objective - Vital Signs Vital signs: Vital Signs Temp 97 F L 11/24/18 08:00 Pulse 80 11/24/18 11:57 Resp 20 11/24/18 10:30 BP 91/43 11/24/18 10:30 Pulse Ox 100 11/24/18 10:30 Intake & Output 11/23/18 11/24/18 11/24/18 18:59 06:59 18:59 Intake Total 1409.237 4843.316 1015.533 Output Total 2665 258 6 Balance -7120.649 4957.316 1009.533 Weight 128.2 kg Intake: IV 870 1200 830 Cefepime 0.5 gm In Sodium 100 Chloride 0.9% 50 ml @ 100 mls/hr IVPB Q24HR [facility] Rx#:[id number] Mvi, Adult No.4 with Vit 400 960 320 K 10 ml Trace (Conc-1Ml/ Dose) 1 ml Sodium Acetate 20 meq Potassium Chloride 20 meq Calcium Chloride 330 mg In Amino Acid 5%-D15w 1,000 ml @ 80 mls/hr IV .BY DURATION [facility] Rx#:[id number] Parenteral Electrolytes 150 20 ml Mvi, Adult No.4 with Vit K 10 ml Trace ( Conc-1Ml/Dose) 1 ml In Amino Acid 5%-D15w 1,000 ml @ 30 mls/hr IV .Q24H [facility] Rx#:[id number] Potassium Chloride 10 meq 200 In Water For Injection 1 100ml.bag @ 100 mls/hr IVPB Q1H [facility] Rx#: [id number] Sodium Chloride 0.9% 1, 220 240 110 000 ml @ 10 mls/hr IV . Q24H [facility] Rx#:[id number] metroNIDAZOLE-NS PMX 500 100 100 mg In Saline 1 100ml.bag @ 100 mls/hr IVPB Q8HR [facility] Rx#:[id number] Intake, IV Titration 447.576 572.316 125.533 Amount Cefepime 0.5 gm In Sodium 50 Chloride 0.9% 50 ml @ 100 mls/hr IVPB Q24HR [facility] Rx#:[id number] Heparin Sod,Pork in 0.45% 103.004 269.244 NaCl 25,000 unit In 0.45 % NaCl 1 250ml.bag @ 8.45 UNITS/KG/HR 9.97 mls/hr IV .Q24H [facility] Rx#: [id number] Insulin Regular 100 unit 38.784 87.833 41.333 In Sodium Chloride 0.9% 100 ml @ Per Protocol IV .Q0M [facility] Rx#:[id number] Norepinephrine 16 mg In 55.661 15.366 64.375 Sodium Chloride 0.9% 250 ml @ Titrate IV .Q0M [facility] Rx#:[id number] Propofol 1,000 mg In 100.127 199.873 19.825 Empty Bag 1 bag @ Titrate IV .Q0M [facility] Rx#: [id number] metroNIDAZOLE-NS PMX 500 100 mg In Saline 1 100ml.bag @ 100 mls/hr IVPB Q8HR [facility] Rx#:[id number] Oral 60 Output: Gastric Drainage 350 250 Urine 15 8 6 Stool 300 Other 2000 Other: Voiding Method Indwelling Catheter Indwelling Catheter - Labs CBC & Chem 7: 11/24/18 05:20 11/24/18 05:20 Labs: Abnormal Lab Results - Last 24 Hours (Table) 11/23/18 11/23/18 11/23/18 Range/Units 12:08 13:10 14:02 WBC (3.8-10.6) k/uL RBC (3.80-5.40) m/uL Hgb (11.4-16.0) gm/dL Hct (34.0-46.0) % MCHC (31.0-37.0) g/dL RDW (11.5-15.5) % Plt Count (150-450) k/uL APTT 41.9 H (22.0-30.0) sec ABG pO2 (83-108) mmHg ABG Total CO2 (19-24) mmol/L ABG O2 Saturation (94-97) % Sodium (137-145) mmol/L BUN (7-17) mg/dL Creatinine (0.52-1.04) mg/dL Glucose (74-99) mg/dL POC Glucose (mg/dL) 133 H 136 H (75-99) mg/dL Calcium (8.4-10.2) mg/dL 11/23/18 11/23/18 11/23/18 Range/Units 14:05 15:04 16:30 WBC (3.8-10.6) k/uL RBC (3.80-5.40) m/uL Hgb (11.4-16.0) gm/dL Hct (34.0-46.0) % MCHC (31.0-37.0) g/dL RDW (11.5-15.5) % Plt Count (150-450) k/uL APTT (22.0-30.0) sec ABG pO2 (83-108) mmHg ABG Total CO2 (19-24) mmol/L ABG O2 Saturation (94-97) % Sodium (137-145) mmol/L BUN (7-17) mg/dL Creatinine (0.52-1.04) mg/dL Glucose (74-99) mg/dL POC Glucose (mg/dL) 151 H 125 H 132 H (75-99) mg/dL Calcium (8.4-10.2) mg/dL 11/23/18 11/23/18 11/23/18 Range/Units 18:03 19:54 20:57 WBC (3.8-10.6) k/uL RBC (3.80-5.40) m/uL Hgb (11.4-16.0) gm/dL Hct (34.0-46.0) % MCHC (31.0-37.0) g/dL RDW (11.5-15.5) % Plt Count (150-450) k/uL APTT (22.0-30.0) sec ABG pO2 (83-108) mmHg ABG Total CO2 (19-24) mmol/L ABG O2 Saturation (94-97) % Sodium (137-145) mmol/L BUN (7-17) mg/dL Creatinine (0.52-1.04) mg/dL Glucose (74-99) mg/dL POC Glucose (mg/dL) 183 H 171 H 205 H (75-99) mg/dL Calcium (8.4-10.2) mg/dL 11/23/18 11/23/18 11/23/18 Range/Units 21:15 22:01 23:02 WBC (3.8-10.6) k/uL RBC (3.80-5.40) m/uL Hgb (11.4-16.0) gm/dL Hct (34.0-46.0) % MCHC (31.0-37.0) g/dL RDW (11.5-15.5) % Plt Count (150-450) k/uL APTT 102.5 H* (22.0-30.0) sec ABG pO2 (83-108) mmHg ABG Total CO2 (19-24) mmol/L ABG O2 Saturation (94-97) % Sodium (137-145) mmol/L BUN (7-17) mg/dL Creatinine (0.52-1.04) mg/dL Glucose (74-99) mg/dL POC Glucose (mg/dL) 214 H 182 H (75-99) mg/dL Calcium (8.4-10.2) mg/dL 11/24/18 11/24/18 11/24/18 Range/Units 00:00 00:57 02:55 WBC (3.8-10.6) k/uL RBC (3.80-5.40) m/uL Hgb (11.4-16.0) gm/dL Hct (34.0-46.0) % MCHC (31.0-37.0) g/dL RDW (11.5-15.5) % Plt Count (150-450) k/uL APTT (22.0-30.0) sec ABG pO2 (83-108) mmHg ABG Total CO2 (19-24) mmol/L ABG O2 Saturation (94-97) % Sodium (137-145) mmol/L BUN (7-17) mg/dL Creatinine (0.52-1.04) mg/dL Glucose (74-99) mg/dL POC Glucose (mg/dL) 154 H 158 H 140 H (75-99) mg/dL Calcium (8.4-10.2) mg/dL 11/24/18 11/24/18 11/24/18 Range/Units 04:00 04:59 05:11 WBC (3.8-10.6) k/uL RBC (3.80-5.40) m/uL Hgb (11.4-16.0) gm/dL Hct (34.0-46.0) % MCHC (31.0-37.0) g/dL RDW (11.5-15.5) % Plt Count (150-450) k/uL APTT (22.0-30.0) sec ABG pO2 121 H (83-108) mmHg ABG Total CO2 26 H (19-24) mmol/L ABG O2 Saturation 99.4 H (94-97) % Sodium (137-145) mmol/L BUN (7-17) mg/dL Creatinine (0.52-1.04) mg/dL Glucose (74-99) mg/dL POC Glucose (mg/dL) 137 H 137 H (75-99) mg/dL Calcium (8.4-10.2) mg/dL 11/24/18 11/24/18 11/24/18 Range/Units 05:20 05:20 05:20 WBC 12.8 H (3.8-10.6) k/uL RBC 2.39 L (3.80-5.40) m/uL Hgb 7.2 L (11.4-16.0) gm/dL Hct 23.5 L (34.0-46.0) % MCHC 30.8 L (31.0-37.0) g/dL RDW 20.7 H (11.5-15.5) % Plt Count 147 L (150-450) k/uL APTT >200.0 H* (22.0-30.0) sec ABG pO2 (83-108) mmHg ABG Total CO2 (19-24) mmol/L ABG O2 Saturation (94-97) % Sodium 135 L (137-145) mmol/L BUN 65 H (7-17) mg/dL Creatinine 3.91 H (0.52-1.04) mg/dL Glucose 142 H (74-99) mg/dL POC Glucose (mg/dL) (75-99) mg/dL Calcium 7.8 L (8.4-10.2) mg/dL 11/24/18 11/24/18 11/24/18 Range/Units 06:10 06:51 07:08 WBC (3.8-10.6) k/uL RBC (3.80-5.40) m/uL Hgb (11.4-16.0) gm/dL Hct (34.0-46.0) % MCHC (31.0-37.0) g/dL RDW (11.5-15.5) % Plt Count (150-450) k/uL APTT 47.8 H (22.0-30.0) sec ABG pO2 (83-108) mmHg ABG Total CO2 (19-24) mmol/L ABG O2 Saturation (94-97) % Sodium (137-145) mmol/L BUN (7-17) mg/dL Creatinine (0.52-1.04) mg/dL Glucose (74-99) mg/dL POC Glucose (mg/dL) 135 H 124 H (75-99) mg/dL Calcium (8.4-10.2) mg/dL 11/24/18 11/24/18 11/24/18 Range/Units 07:54 09:23 10:21 WBC (3.8-10.6) k/uL RBC (3.80-5.40) m/uL Hgb (11.4-16.0) gm/dL Hct (34.0-46.0) % MCHC (31.0-37.0) g/dL RDW (11.5-15.5) % Plt Count (150-450) k/uL APTT (22.0-30.0) sec ABG pO2 (83-108) mmHg ABG Total CO2 (19-24) mmol/L ABG O2 Saturation (94-97) % Sodium (137-145) mmol/L BUN (7-17) mg/dL Creatinine (0.52-1.04) mg/dL Glucose (74-99) mg/dL POC Glucose (mg/dL) 145 H 131 H 136 H (75-99) mg/dL Calcium (8.4-10.2) mg/dL 11/24/18 Range/Units 11:21 WBC (3.8-10.6) k/uL RBC (3.80-5.40) m/uL Hgb (11.4-16.0) gm/dL Hct (34.0-46.0) % MCHC (31.0-37.0) g/dL RDW (11.5-15.5) % Plt Count (150-450) k/uL APTT (22.0-30.0) sec ABG pO2 (83-108) mmHg ABG Total CO2 (19-24) mmol/L ABG O2 Saturation (94-97) % Sodium (137-145) mmol/L BUN (7-17) mg/dL Creatinine (0.52-1.04) mg/dL Glucose (74-99) mg/dL POC Glucose (mg/dL) 127 H (75-99) mg/dL Calcium (8.4-10.2) mg/dL Microbiology - Last 24 Hours (Table) 11/21/18 10:20 Blood Culture - Preliminary Blood No Growth after 48 hours 11/21/18 11:54 Gram Stain - Preliminary Sputum Sputum Culture - Preliminary Gram Neg Bacilli Assessment and Plan Plan: Assessment: 1. Acute kidney injury secondary to ATN secondary to hypotension. Creatinine peaked at 5.85 and November 07 and was also oliguric. Currently hemodialysis dependent. No hydronephrosis noted on renal ultrasound. 2. Chronic kidney disease stage IV secondary to diabetic kidney disease and nephrosclerosis with baseline creatinine near 3 according to the patient. 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 3. Systolic CHF with ejection fraction of 30-35% with severe pulmonary hypertension and moderate tricuspid regurgitation. 4. Volume overload. 5. Hyponatremia secondary to acute kidney injury. 6. Hyperkalemia secondary to acute kidney injury. Improved with dialysis. 7. Diabetes mellitus. 8. Hypotension maintained on 4 mics of Levophed - now on 12 mcs during HD. 9. Hyperphosphatemia secondary to acute kidney injury. Maintained on PhosLo. 10. Acute blood loss anemia secondary to GI bleed. Status post blood transfusion and IV DDAVP on November 10. Status post EGD on November 10 which revealed ischemic areas in the antrum. 11. NSTEMI. Cardiology following. 12. A. fib with RVR status post amiodarone drip. Now rate controlled. 13. Hypocalcemia secondary to acute kidney injury. Better. Plan: Currently seen while undergoing hemodialysis. Up to 12 mics of Levophed. I will give her 10 mg of midodrine now. I will also lower blood flow and dialysate flow rates. Wean Levophed. Continue to monitor renal function and urine output. Another dialysis treatment tomorrow.
[2018-11-24 12:14] LABS: Glucose,Whole Blood 121 mg/dL (75-99)
[2018-11-24 13:11] LABS: Glucose,Whole Blood 109 mg/dL (75-99)
[2018-11-24 14:18] LABS: Glucose,Whole Blood 122 mg/dL (75-99)
[2018-11-24] MEDS: NOREPINEPHRINE 32 MG in SODIUM CHLORIDE 0.9% 250 ML IV SCH (15:00)
[2018-11-24 17:11] LABS: Glucose,Whole Blood 270 mg/dL (75-99)
[2018-11-24 18:21] LABS: Glucose,Whole Blood 257 mg/dL (75-99)
[2018-11-24 19:17] LABS: Glucose,Whole Blood 241 mg/dL (75-99)
[2018-11-24 20:50] LABS: Glucose,Whole Blood 214 mg/dL (75-99)
[2018-11-24 21:58] LABS: Glucose,Whole Blood 198 mg/dL (75-99)
[2018-11-24 23:10] LABS: Glucose,Whole Blood 191 mg/dL (75-99)
[2018-11-25 00:08] LABS: Glucose,Whole Blood 165 mg/dL (75-99)
[2018-11-25] MEDS: PROPOFOL 1,000 MG in EMPTY BAG 1 BAG IV SCH ×5 (02:33→23:45)
[2018-11-25 02:38] LABS: Glucose,Whole Blood 147 mg/dL (75-99)
[2018-11-25 04:03] LABS: Glucose,Whole Blood 133 mg/dL (75-99)
[2018-11-25 05:02] LABS: ABG Base Excess -0.2 mmol/L; ABG HCO3 25 mmol/L (21-25); ABG Oxygen Saturation 99.2 % (94-97); ABG PCO2 46 mmHg (35-45); ABG PH 7.35 (7.35-7.45); ABG PO2 120 mmHg (83-108); ABG TCO2 27 mmol/L (19-24)
[2018-11-25 06:13] LABS: Ionized Calcium 4.5 mg/dL (4.5-5.3)
[2018-11-25 06:18] LABS: Glucose,Whole Blood 201 mg/dL (75-99)
[2018-11-25 06:26] LABS: Calcium 7.5 mg/dL (8.4-10.2); Magnesium 1.9 mg/dL (1.6-2.3); Phosphorus 3.3 mg/dL (2.5-4.5); Potassium 4.3 mmol/L (3.5-5.1)
[2018-11-25 06:49] LABS: Anisocytosis Moderate; Basophils % (A) 0 %; Eosinophils # (A) 0.2 k/uL (0-0.7); Eosinophils % (A) 2 %; HCT 23.1 % (34.0-46.0); HGB 7.2 gm/dL (11.4-16.0); Hypochromasia Marked; Lymphocytes # (A) 1.6 k/uL (1.0-4.8); Lymphocytes % (A) 11 %; MCH 31.1 pg (25.0-35.0); MCHC 31.4 g/dL (31.0-37.0); MCV 99.3 fL (80.0-100.0); Macrocytosis Moderate; Mean Platelet Volume 8.4; Monocytes # (A) 0.5 k/uL (0-1.0); Monocytes % (A) 4 %; Neutrophils # (A) 11.1 k/uL (1.3-7.7); Neutrophils % (A) 82 %; Platelet Count 118 k/uL (150-450); Poikilocytosis Moderate; RBC 2.32 m/uL (3.80-5.40); RDW 20.8 % (11.5-15.5); WBC 13.6 k/uL (3.8-10.6)
[2018-11-25 07:06] LABS: Glucose,Whole Blood 181 mg/dL (75-99)
--- NOTE | 2018-11-25 07:07 | PN ---
PROGRESS NOTE DATE OF SERVICE: 11/24/2018 REASON FOR FOLLOWUP: Aspiration pneumonia. INTERVAL HISTORY: The patient is currently afebrile. She is in the ICU still requiring pressor support, the dose has been decreased has to be given up today for the patient to undergo dialysis for removal of the fluids. Patient subsequently not available on the breathing parameter. still have diarrhea with fecal management system. PHYSICAL EXAMINATION: Blood pressure 125/60 with a pulse of 77, temperature 97.6. She is 100% on 40% FiO2. General description is a middle-aged female intubated on the vent. HEENT: Shows pallor, no scleral icterus. The patient is orally intubated. LUNGS: Unlabored breathing with decreased breath sounds at the base, no wheeze. HEART: S1, S2. Regular rate and rhythm. ABDOMEN: Soft, no tenderness. LABS: Hemoglobin 7.1, white count of 12.8. BUN of 65, creatinine of 3.91. DIAGNOSTIC IMPRESSION AND PLAN: Patient with acute respiratory failure which is slightly , possibly a component of pneumonia possible aspiration etiology. Sputum has been showing E. coli that is resistant to Zosyn that is sensitive to cefepime. The patient has no evidence of . Patient to continue cefepime and Flagyl at this point while watching her clinical course closely. Continue with supportive care. MMODL / IJN: [id number] /
--- NOTE | 2018-11-25 07:58 | XR ---
EXAMINATION TYPE: XR chest 1V portable DATE OF EXAM: 11/25/2018 COMPARISON: 11/24/2018 HISTORY: Endotracheal tube placement TECHNIQUE: Single frontal view of the chest is obtained. FINDINGS: Endotracheal tube, enteric tube, and right internal jugular central venous catheter are si milar in position to the prior exam. There is new slight silhouetting of the hemidiaphragms. Remainde r the lungs are clear. Cardia mediastinal silhouette is again mildly enlarged. Osseous structures are intact. IMPRESSION: New silhouetting of the hemidiaphragms may relate to atelectasis or trace developing ple ural effusions.
[2018-11-25] MEDS: CALCIUM ACETATE 667 MG CAP PO SCH ×3 (08:04→19:15)
[2018-11-25 08:24] LABS: Glucose,Whole Blood 166 mg/dL (75-99)
[2018-11-25] MEDS: metroNIDAZOLE-NS PMX 500 MG in SALINE 1 100ML.BAG IVPB SCH ×2 (08:36→18:47)
[2018-11-25] MEDS: CHLORHEXIDINE GLUCONATE 15 ML CUP MUCOUS MEM SCH ×2 (08:36→21:30)
[2018-11-25] MEDS: ATORVASTATIN 40 MG TAB PO SCH (08:36)
[2018-11-25] MEDS: PANTOPRAZOLE 40 MG/10 ML VIAL IVP SCH ×2 (08:36→21:31)
[2018-11-25] MEDS: CEFEPIME 1 GM in SODIUM CHLORIDE 0.9% 50 ML IVPB SCH (08:36)
[2018-11-25] MEDS: METOPROLOL TARTRATE 25 MG TAB PO SCH ×2 (08:37→21:30)
[2018-11-25] MEDS: AMIODARONE 200 MG TAB PO SCH ×2 (08:37→21:31)
--- NOTE | 2018-11-25 08:37 | PN ---
PROGRESS NOTE DATE OF SERVICE: 11/24/2018 REASON FOR FOLLOWUP: Aspiration pneumonia. INTERVAL HISTORY: The patient is currently afebrile. She is hemodynamically still requiring pressor support. The dose has been today for the patient to undergo dialysis for removal of the fluids. The patient subsequently on the breathing parameter. Hemodynamics stable. NG to suction still have diarrhea with fecal management system. PHYSICAL EXAMINATION: Blood pressure 125/60 with a pulse of 77 temperature 97.6. She is 100% on 40% description is a middle aged female intubated on the vent. HEENT examination shows pallor, no scleral icterus. The patient is orally intubated. LUNGS: Unlabored breathing with decreased breath sounds at the bases. No wheeze. HEART: S1, S2. Regular rate and rhythm. ABDOMEN: Soft, no tenderness. LABS: Hemoglobin 7 2, white count 12.8. BUN 65, creatinine 3.91. DIAGNOSTIC IMPRESSION AND PLAN: Patient with acute respiratory failure which is slightly , possible component of pneumonia, possible aspiration etiology. Sputum has been showing Escherichia coli that is resistant to Zosyn that is sensitive to cefepime. The patient has no evidence . The patient to continue cefepime and Flagyl at this point while watching her clinical course closely. Continue with supportive care. MMWILLIAML / IJN: [id number] /
[2018-11-25 09:29] LABS: Glucose,Whole Blood 134 mg/dL (75-99)
[2018-11-25] MEDS: HEPARIN SOD,PORK IN 0.45% NACL 25,000 UNIT in 0.45% NACL 1 250ML.BAG IV SCH (09:32)
--- NOTE | 2018-11-25 09:49 | PN ---
PROGRESS NOTE Mrs. Monahan is a 58-year-old female with history of premature coronary artery disease, status post coronary artery bypass grafting, history of peripheral disease, end-stage renal disease on hemodialysis, anemia. She remains intubated and sedated. She is receiving dialysis today. She has been evaluated for possible PEG tube and tracheostomy. She continues to be in atrial fibrillation with controlled ventricular response, on norepinephrine. She has not significant ventricular ectopic activity. She continues to be at this time on the amiodarone 200 mg twice a day, Lipitor 40 mg daily, metoprolol tartrate 25 mg daily, and the IV heparin. PHYSICAL EXAMINATION: Blood pressure running running in the 100 to 110's with a heart rate in the 80s. LUNGS: Clear anteriorly. HEART: Irregular, regular, S1, S2. No S3. No rub. ABDOMEN: Soft, obese. No clear organomegaly. EXTREMITIES: +2 to 3 edema. Digital changes noted in the lower extremity, although feels a little bit better on the left foot. LAB DATA: Revealed a hemoglobin 7.2, BUN and creatinine 59 and 3.1, white blood cell of 13.6. IMPRESSION: 1. Respiratory failure, multifactorial with evidence of CHF and severe systolic dysfunction and possible aspiration pneumonia. 2. Status post coronary artery bypass grafting with recent non STEMI. 3. Severe peripheral vessel disease. 4. Anemia. 5. End-stage renal disease. 6. Atrial fibrillation. 7. Diabetes mellitus. RECOMMENDATION: From the cardiac standpoint, will continue present therapy with supportive care. She has been evaluated by Dr. Vance regarding weaning status. She does not appear to be stable at this time. Probably will proceed with tracheostomy and PEG tube placement. The prognosis remains quite poor. MMODL / IJN: [id number] /
[2018-11-25 10:20] LABS: Glucose,Whole Blood 152 mg/dL (75-99)
[2018-11-25 11:11] LABS: Glucose,Whole Blood 164 mg/dL (75-99)
--- NOTE | 2018-11-25 11:29 | P.PN ---
Subjective Progress Note Date: 11/25/18 This is an extremely sick intensive care unit patient, and my evaluation uncovering this patient for Dr. Gordillo upon his request. I noted the patient's history and review the records. I also met the family including her and the daughter. In summary, the patient is an extensive cardiac history including previous history of coronary artery disease and previous bypass surgery 2008, peripheral artery disease and previous vascular bypass to the lower extremities, CHF with impaired ejection fraction of 35%, pulmonary hypertension, history of chronic renal failure with stage IV kidney disease, chronic atrial fibrillation, previous history of a right lower extremity DVT, bruises support embolism, obstructive sleep apnea, obesity, who has been in the intensive care unit for altered mental status. During the course of the treatment the patient was intubated and placed on mechanical ventilator. During the course of treatments, the patient required pressors and the patient was being treated with levo fed for hemodynamic support. She ultimately went into end-stage renal disease and the patient had to be dialyzed via temporary dialysis catheter that was inserted in the right IJ. During the course of the treatment, the patient was also noted to have episodic GI bleed while being on anticoagulation for DVT. Plastic surgery was also consulted for possibility of an underlying IVC filter placement Rise to my morning rounds, the patient was already decompensating. The nursing staff had called Dr. Gordillo early this morning for issues related diminished level of consciousness, unresponsiveness, worsening shortness of breath and consented the patient may not be able to protect her airways. At that point, in order was given to intubate the patient and put on a mechanical ventilator. The patient was already intubated, arrival. The patient was an assist-control mode of ventilator. The patient had a post intubation chest exit that showed evidence of pulmonary edema. She was around 2 cm above the nieves. The patient had a temporary.scattered on the right and small bilateral pleural effusion right more than left in addition to some atelectatic changes in lung bases bilaterally. Apparently, BiPAP was attempted prior to intubation process however the patient failed the BiPAP. Hemodynamically, the patient is in atrial fibrillation. The patient is currently on a combination of Lopressor 25 mg by mouth twice a day and amiodarone 400 mg by mouth twice a day. Nevertheless, post intubation the patient had to go back on pressors to maintain a mean artery pressure above 65. Urine output was low. The patient was having bloody stool this being collected in a fecal management system. I repeated the hemoglobin that came down to 6.4. At that point a body ordered to liters of IV fluid in the form of normal saline and 2 units of packed RBC. The patient was already on sedation and she was, comfortable. Abdomen was nondistended yet she had significant amount of edema in all 4 extremities. The patient was afebrile. White cell count was not elevated. The patient however the most rated necrotic digits in the feet bilaterally and the pulses were quite diminished in all 4 extremities and there were only obtained by Doppler signal. The PPT was subtherapeutic and adjustments on the heparin infusion is to follow. The blood gas showed a pH of 7.32 with a pCO2 of 42 and pO2 more than 400 and based on that the FiO2 was weaned down to 50% and the PEEP was kept at 5. The patient is a tidal volume of 450. Antibiotics was added on empiric basis and the patient was placed on a combination of cefepime and Flagyl suspecting ischemic colitis as the patient's was having chronic abdominal pain and she is a vasculopath is very much likely that she has symptoms of chronic mesenteric ischemia with possibly an acute ischemic component contributing to her bloody diarrhea. On today's evaluation of 11/22/2018, this patient remains critically ill. The patient is still sedated with Diprivan which is running at 20 g per KG per minute. She can easily aroused from sedation. At times we have also seen and follows some simple commands. As such, neurologically there is adequate function that we think of based on our sedation holiday that were given briefly to this patient. From the pulmonary standpoint, the patient remains on a mechanical ventilator and an assist-control mode with tidal volume of 500, FiO2 of 40% with a PEEP of 5 and the rate of 20. Blood gas was not obtained as the patient does not have any arterial line access at this point in time. The chest x-ray from today shows no significant change compared to yesterday. The patient has small bilateral pleural effusion and atelectatic changes in lung bases. There is a right-sided PICC line catheter in place. ET tube also is in a good location and there is no consolidation or airspace disease. Hemodynamically, the patient received a total of 2 L of IV fluids yesterday in the form of normal saline and the patient also received 2 units of packed RBC. Subsequent hemoglobin came up to 8.0. The patient has been kept on her pressors and currently she is on 2 g per KG of per minute of norepinephrine infusion. Urine output is in order of 0 mL an hour. The patient is a producing any urine output at this point in time. The plan is to proceed with dialysis today. The patient has a temper dialysis catheter in her right IJ. The dose will be done today. In terms of GI bleed, as mentioned the patient had on and off melanotic stools. EGD that was done earlier by GI on 11/10/2018 showed some ischemic changes in the antrum and the body of the stomach. Colonoscopy was not done. I suspect that there may be a ischemic bowel as the patient has symptoms that were typical of chronic mesenteric ischemia as the patient has chronic atherosclerotic disease. The patient is still covered with broad-spectrum antibiotics. Yesterday. Currently the patient is on a combination of IV Flagyl and IV cefepime. She is afebrile. White cell count is not elevated. The cardiac enzymes were positive in the setting of this massive shock state of the patient counted yesterday. Troponin initially came back at 6.8 and subsequently peaked at 7.9. Cardiology is on the case. No interventions are being planned for now. The patient remains nothing by mouth. I think TPN needs to be started on this patient for nutritional support. She remains on IV heparin regarding her right lower extremity DVT. In terms of the ischemic necrotic changes in his digits and toes, these are somewhat improved compared to yesterday. Pulses are obtained by Doppler. No palpable pulses in all 4 extremities that remain cold and clammy. No other significant events overnight. I have elected discussion with the patient's yesterday explained to him the critical nature of the condition. I also think he has a good understanding. I tried to fill in a lot of details regarding her chronic cardiac history, peripheral vascular disease, renal disease, etc. The daughter was more aware and receptive of the ongoing medical problems. On today's evaluation of 11/23/2018, I'm seeing this patient for a follow-up. This patient remains on a mechanical ventilator. She remains intubated. This morning, she is assist-control mode at the rate of 20 with tidal volume of 500 and FiO2 of 40% with a PEEP of 5. The blood gases from today showed a pH of 7.30 with a pCO2 of 44 and pO2 133. Chest x-ray from this morning showed that the tube was in a good location. There was some pulmonary vascular congestion. For the most part the x-ray findings are essentially stable. ET tube was in a good location. The patient indwelling tubes remain unchanged. No significant orotracheal secretions. Hemodynamically, the patient is still low dose pressors which is currently running at 2 g per KG or permanent of norepinephrine infusion. The patient underwent a successful yesterday another session of dialysis was given to her today. Overall she had 2 L of ultrafiltration today and the same was done yesterday. Her volume status is slightly improved. The patient overall looks in significant overload still with extensive edema in all 4 extremities. The patient is afebrile. The patient is on empiric antibiotic coverage utilizing a combination of cefepime and Flagyl. The patient is still having some liquid the body stool with seems to be melanotic in nature. She is on IV protonic stitches on IV heparin regarding a left lower extremity DVT. The cardiac rhythm is atrial fibrillation with a controlled rate. TPN is being utilized and the patient remains nothing by mouth for now. Clinically, she is easily arousable 1. Sedation. A sedation holiday was given to her and the patient was able to follow some simple commands. Based on this, sedation was resumed and currently Diprivan is running at 20 mics. The patient's lower extremities are warm and compared to yesterday. The pulses are very much diminished and there obtained by Doppler signal. No worsening in the digital necrosis both in the fingers or in the feet bilaterally. The white cell count is at 13. Hemoglobin stable at 7.8. No significant metabolic acidosis. Rest of the electrolytes are all stable and within normal limits. On 11/24/2018, patient is being seen in follow-up. Remains in the intensive care unit. Remains on a mechanical ventilator. Vent settings are essentially unchanged. She is on assist control mode of ventilation. Tidal volume is at 500 and FiO2 of 40% and a PEEP of 5. Blood gases showed a pH of 7.36 with a pCO2 of 44 and pO2 of 121. Chest x-ray shows no acute abnormalities. There is improvement in the volume status with some limited bibasilar atelectatic changes. Otherwise no other acute of the masses are noted. Hemodynamically, the patient remains in atrial fibrillation. The patient is still requiring norepinephrine infusion for hemodynamic support and the levo fed is running somewhere between 4 and 5 mg per KG per minute. No urine output. Dialysis was done yesterday another session of dialysis will be done today. We'll proceed with the sedation holiday and checking the patient's weaning parameters. I think overall, the patient may not a be a good candidate for extubation. This has been tried daily, the patient failed. I have opened the discussion of the possibility of needing a tracheostomy with the family. The family was receptive. A surgical consultation will also be obtained. She is not having any GI bleed. Minimal amount of brown to dark stool but is being cannulated in the fecal management system. The patient remains on IV heparin. Hemoglobin stable at 7.2. She is afebrile. She remains on the same antibiotic coverage. She is receiving TPN for nutritional support. She is on insulin drip for blood sugar control. She is also on Diprivan which is currently running at 20 g per KG per minute. She has still extensive edema and third spacing in all 4 extremities. Pulses are diminished in all 4 extremities that there barely palpable and are obtainable by Doppler signals. Cyanotic changes in the digits are seen in the feet and in the hands. On 11/25/2018, I'm seeing this patient for a follow-up. The tentative plan is for this patient to undergo a tracheostomy tube insertion today. Yesterday, the patient was given a spontaneous breathing trial with upper support of 5 and PEEP of 5. After 45 minutes, she became quite uncomfortable and she started getting tachypneic and tachycardic. Based on that this point is breathing trial was aborted and no extubation was performed. As planned, we'll going to proceed with a tracheostomy tube insertion today. The patient is on sedation with Diprivan 35 mics. The patient got dialyzed today. She remains on the same vent setting. She is assist-control mode with a tidal volume of 500 and FiO2 40% and a PEEP of 5 and a rate of 20. Blood gases are noted this morning with a pH of 7.35 with a pCO2 of 46 and pO2 120. No cervical leukocytosis. No fever. No urine output. IV heparin is on hold awaiting the tracheostomy tube insertion. She is receiving preoperative support. Hemoglobin stable at 7.2. No evidence of any acute GI bleeding. No other significant events over the past 24 hours. Family is agreeable for the procedure. I discussed with the patient family on multiple occasions. Objective - Vital Signs Vital signs: Vital Signs Temp 97.8 F 11/25/18 10:35 Pulse 67 11/25/18 10:30 Resp 20 11/25/18 10:35 BP 110/44 11/25/18 10:35 Pulse Ox 97 11/25/18 10:35 Intake & Output 11/24/18 11/25/18 11/25/18 18:59 06:59 18:59 Intake Total 2000.604 1711.370 732.048 Output Total 20 35 8 Balance 5990.583 6820.370 724.048 Weight 126.4 kg 126.4 kg Intake: IV 1730 1200 540 Cefepime 0.5 gm In Sodium 100 Chloride 0.9% 50 ml @ 100 mls/hr IVPB Q24HR [facility] Rx#:[id number] Cefepime 1 gm In Sodium 100 Chloride 0.9% 50 ml @ 100 mls/hr IVPB Q24HR [facility] Rx #:[id number] Mvi, Adult No.4 with Vit 960 880 320 K 10 ml Trace (Conc-1Ml/ Dose) 1 ml Sodium Acetate 20 meq Potassium Chloride 20 meq Calcium Chloride 330 mg In Amino Acid 5%-D15w 1,000 ml @ 80 mls/hr IV .BY DURATION [facility] Rx#:[id number] Potassium Chloride 10 meq 200 In Water For Injection 1 100ml.bag @ 100 mls/hr IVPB Q1H [facility] Rx#: [id number] Sodium Chloride 0.9% 1, 270 220 20 000 ml @ 10 mls/hr IV . Q24H [facility] Rx#:[id number] metroNIDAZOLE-NS PMX 500 200 100 100 mg In Saline 1 100ml.bag @ 100 mls/hr IVPB Q8HR [facility] Rx#:[id number] Intake, IV Titration 211.604 511.370 132.048 Amount Heparin Sod,Pork in 0.45% 237.475 28.406 NaCl 25,000 unit In 0.45 % NaCl 1 250ml.bag @ 8.45 UNITS/KG/HR 9.97 mls/hr IV .Q24H [facility] Rx#: [id number] Insulin Regular 100 unit 41.333 83.991 31.100 In Sodium Chloride 0.9% 100 ml @ Per Protocol IV .Q0M [facility] Rx#:[id number] Norepinephrine 16 mg In 64.375 Sodium Chloride 0.9% 250 ml @ Titrate IV .Q0M [facility] Rx#:[id number] Norepinephrine 32 mg In 95.8 Sodium Chloride 0.9% 250 ml @ 0.1 MCG/KG/MIN 6 mls /hr IV .Q24H [facility] Rx#: [id number] Propofol 1,000 mg In 105.896 94.104 72.542 Empty Bag 1 bag @ Titrate IV .Q0M [facility] Rx#: [id number] Oral 60 Other 60 Output: Urine 20 35 8 Other: Voiding Method Indwelling Catheter Indwelling Catheter Indwelling Catheter # Voids 0 0 - Exam Intubated, sedated, comfortable likely distress. Morbidly obese. Cold extremities and addition to ischemic toes bilaterally. Intubated on a mechanical ventilator. Orogastric and orotracheal tube are both in place. This morning, the patient is sedated. She'll be given a sedation holiday following completion of the hemodialysis. Head exam was generally normal. There was no scleral icterus or corneal arcus. Mucous membranes were moist. Neck was supple and without jugular venous distension, thyromegaly, or carotid bruits. Carotids were easily palpable bilaterally. There was no adenopathy. The patient has a right IJ triple lumen catheter/temporary dialysis catheter and exit site is clean. Lungs were clear to auscultation and percussion, and with normal diaphragmatic excursion. No wheezes or rales were noted. Heart sounds are irregular, positive S1-S2, no cervical murmurs could be appreciated. Abdomen is obese soft nontender. Organs cannot be accurately palpated. There is no ascites. No direct or rebound tensile guarding at this point in time. Extremities are cold. Pulses are diminished in all 4 extremities and they're obtained only by Doppler. Necrotic digits in the feet bilaterally. No clubbing. There is edema +2 in all extremities. Skin cold and clammy and addition to necrotic skin changes in the toes of the lower extremity feet bilaterally. Neurologically the patient is sedated, pupils are equal and reactive to light. No facial asymmetry. Motor and sensory functions cannot be accurately obtained. The patient was given a sedation holiday yesterday and the patient would follow occasional simple commands upon demand while being off sedation. - Labs CBC & Chem 7: 11/25/18 05:45 11/25/18 05:45 Labs: Abnormal Lab Results - Last 24 Hours (Table) 11/24/18 11/24/18 11/24/18 Range/Units 11:21 12:02 13:01 WBC (3.8-10.6) k/uL RBC (3.80-5.40) m/uL Hgb (11.4-16.0) gm/dL Hct (34.0-46.0) % RDW (11.5-15.5) % Plt Count (150-450) k/uL Neutrophils # (1.3-7.7) k/uL APTT (22.0-30.0) sec ABG pCO2 (35-45) mmHg ABG pO2 (83-108) mmHg ABG Total CO2 (19-24) mmol/L ABG O2 Saturation (94-97) % Sodium (137-145) mmol/L BUN (7-17) mg/dL Creatinine (0.52-1.04) mg/dL Glucose (74-99) mg/dL POC Glucose (mg/dL) 127 H 121 H 109 H (75-99) mg/dL Calcium (8.4-10.2) mg/dL 11/24/18 11/24/18 11/24/18 Range/Units 14:07 17:00 18:10 WBC (3.8-10.6) k/uL RBC (3.80-5.40) m/uL Hgb (11.4-16.0) gm/dL Hct (34.0-46.0) % RDW (11.5-15.5) % Plt Count (150-450) k/uL Neutrophils # (1.3-7.7) k/uL APTT (22.0-30.0) sec ABG pCO2 (35-45) mmHg ABG pO2 (83-108) mmHg ABG Total CO2 (19-24) mmol/L ABG O2 Saturation (94-97) % Sodium (137-145) mmol/L BUN (7-17) mg/dL Creatinine (0.52-1.04) mg/dL Glucose (74-99) mg/dL POC Glucose (mg/dL) 122 H 270 H 257 H (75-99) mg/dL Calcium (8.4-10.2) mg/dL 11/24/18 11/24/18 11/24/18 Range/Units 19:05 20:39 21:47 WBC (3.8-10.6) k/uL RBC (3.80-5.40) m/uL Hgb (11.4-16.0) gm/dL Hct (34.0-46.0) % RDW (11.5-15.5) % Plt Count (150-450) k/uL Neutrophils # (1.3-7.7) k/uL APTT (22.0-30.0) sec ABG pCO2 (35-45) mmHg ABG pO2 (83-108) mmHg ABG Total CO2 (19-24) mmol/L ABG O2 Saturation (94-97) % Sodium (137-145) mmol/L BUN (7-17) mg/dL Creatinine (0.52-1.04) mg/dL Glucose (74-99) mg/dL POC Glucose (mg/dL) 241 H 214 H 198 H (75-99) mg/dL Calcium (8.4-10.2) mg/dL 11/24/18 11/24/18 11/25/18 Range/Units 22:59 23:56 02:26 WBC (3.8-10.6) k/uL RBC (3.80-5.40) m/uL Hgb (11.4-16.0) gm/dL Hct (34.0-46.0) % RDW (11.5-15.5) % Plt Count (150-450) k/uL Neutrophils # (1.3-7.7) k/uL APTT (22.0-30.0) sec ABG pCO2 (35-45) mmHg ABG pO2 (83-108) mmHg ABG Total CO2 (19-24) mmol/L ABG O2 Saturation (94-97) % Sodium (137-145) mmol/L BUN (7-17) mg/dL Creatinine (0.52-1.04) mg/dL Glucose (74-99) mg/dL POC Glucose (mg/dL) 191 H 165 H 147 H (75-99) mg/dL Calcium (8.4-10.2) mg/dL 11/25/18 11/25/18 11/25/18 Range/Units 03:51 04:58 05:10 WBC (3.8-10.6) k/uL RBC (3.80-5.40) m/uL Hgb (11.4-16.0) gm/dL Hct (34.0-46.0) % RDW (11.5-15.5) % Plt Count (150-450) k/uL Neutrophils # (1.3-7.7) k/uL APTT 46.6 H (22.0-30.0) sec ABG pCO2 46 H (35-45) mmHg ABG pO2 120 H (83-108) mmHg ABG Total CO2 27 H (19-24) mmol/L ABG O2 Saturation 99.2 H (94-97) % Sodium (137-145) mmol/L BUN (7-17) mg/dL Creatinine (0.52-1.04) mg/dL Glucose (74-99) mg/dL POC Glucose (mg/dL) 133 H (75-99) mg/dL Calcium (8.4-10.2) mg/dL 11/25/18 11/25/18 11/25/18 Range/Units 05:45 05:45 06:05 WBC 13.6 H (3.8-10.6) k/uL RBC 2.32 L (3.80-5.40) m/uL Hgb 7.2 L (11.4-16.0) gm/dL Hct 23.1 L (34.0-46.0) % RDW 20.8 H (11.5-15.5) % Plt Count 118 L (150-450) k/uL Neutrophils # 11.1 H (1.3-7.7) k/uL APTT (22.0-30.0) sec ABG pCO2 (35-45) mmHg ABG pO2 (83-108) mmHg ABG Total CO2 (19-24) mmol/L ABG O2 Saturation (94-97) % Sodium 130 L (137-145) mmol/L BUN 59 H (7-17) mg/dL Creatinine 3.10 H (0.52-1.04) mg/dL Glucose 154 H (74-99) mg/dL POC Glucose (mg/dL) 201 H (75-99) mg/dL Calcium 7.5 L (8.4-10.2) mg/dL 11/25/18 11/25/18 11/25/18 Range/Units 06:55 08:13 09:18 WBC (3.8-10.6) k/uL RBC (3.80-5.40) m/uL Hgb (11.4-16.0) gm/dL Hct (34.0-46.0) % RDW (11.5-15.5) % Plt Count (150-450) k/uL Neutrophils # (1.3-7.7) k/uL APTT (22.0-30.0) sec ABG pCO2 (35-45) mmHg ABG pO2 (83-108) mmHg ABG Total CO2 (19-24) mmol/L ABG O2 Saturation (94-97) % Sodium (137-145) mmol/L BUN (7-17) mg/dL Creatinine (0.52-1.04) mg/dL Glucose (74-99) mg/dL POC Glucose (mg/dL) 181 H 166 H 134 H (75-99) mg/dL Calcium (8.4-10.2) mg/dL 11/25/18 11/25/18 Range/Units 10:09 11:00 WBC (3.8-10.6) k/uL RBC (3.80-5.40) m/uL Hgb (11.4-16.0) gm/dL Hct (34.0-46.0) % RDW (11.5-15.5) % Plt Count (150-450) k/uL Neutrophils # (1.3-7.7) k/uL APTT (22.0-30.0) sec ABG pCO2 (35-45) mmHg ABG pO2 (83-108) mmHg ABG Total CO2 (19-24) mmol/L ABG O2 Saturation (94-97) % Sodium (137-145) mmol/L BUN (7-17) mg/dL Creatinine (0.52-1.04) mg/dL Glucose (74-99) mg/dL POC Glucose (mg/dL) 152 H 164 H (75-99) mg/dL Calcium (8.4-10.2) mg/dL Microbiology - Last 24 Hours (Table) 11/21/18 11:54 Gram Stain - Final Sputum Sputum Culture - Final Escherichia coli 11/21/18 10:20 Blood Culture - Preliminary Blood No Growth after 72 hours Assessment and Plan Plan: Assessment 1 acute hypoxic respiratory failure, recurrent and the patient had to be reintubated in the intensive care unit. The cause for the recurrent respiratory failure is multifactorial. After being in fluid overload, the patient's volume status in terms of his chest x-ray findings improved and the patient is actually taking well. Nevertheless, the patient is profoundly weak secondary to comorbidities and the patient was not able to sustain a spontaneous breathing trial. The patient was obviously failed extubation. We have recommended tracheostomy tube insertion and family has agreed and will going to proceed with that this afternoon. Meanwhile the patient will be kept sedated for now. 2 altered mental status secondary to underlying multiple medical problems and comorbidities, arousable upon sedation holidays. 3 acute shock/hypovolemic/hemorrhagic shock/cardiac and possibly combination of all , improved and the patient is on few mics of norepinephrine infusion for blood pressure support. 4 severe anemia with hemoglobin is stable post packed RBC transfusion. the hemoglobin has remained stable while the patient being on IV heparin. Hemoglobin today is at 7.2. 5 suspected ischemic colitis with secondary GI bleeding, lactic acid level was nonelevated 6 acute on chronic renal failure and the patient is anuric currently on hemodialysis via a temper dialysis catheter in the right IJ. The patient has been able to tolerate dialysis. She is having daily dialysis and another session will be given to her today. 7 DVT of the right lower extremity currently on IV heparin 8 coronary artery disease with previous bypass surgery in 2008, the patient also developed an acute non-ST segment elevation myocardial infarction with a peak troponin of 7. EKG is not showing any ST segment elevations or depressions. Cardiology is on the case. 9 severe peripheral vascular disease with previous best of bypass surgery to the lower extremities bilaterally 10 ischemic/necrotic toes and fingers , secondary to hypoperfusion in addition to an underlying severe peripheral vascular disease, currently inactive in stable 11 small bilateral pleural effusion right more than left, improved and stable on today's chest x-ray 12 acute non-ST segment elevation myocardial infarction the troponin is up to 7 13 chronic atrial fibrillation with episodes of rapid ventricular response currently well-controlled 14 volume overload and the patient is having daily dialysis and ultrafiltration 15 systolic heart failure with ejection fraction of 30-35% and severe pulmonary hypertension moderate degree of tricuspid regurgitation 16 chronic stage IV kidney disease secondary to diabetic kidney disease and nephrosclerosis, currently on hemodialysis 17 diabetes mellitus, currently on insulin drip 18 poor baseline performance and functional status secondary to above-mentioned comorbidities Plan No major changes in his condition on today's evaluation. We'll continue supportive care. We'll put IV heparin and hold. We'll proceed with a tracheostomy tube insertion. Following that will should be able to wean down the Diprivan and discontinue. Continue TPN for nutritional support. We'll discuss with general surgery possibility of initiating some tube feeds. This may be started after the insertion of a tracheostomy tube was not inserted a PEG tube based on the history of recent GI bleed. We will proceed with a Dobbhoff insertion following the tracheostomy for nutritional purposes. We'll continue to follow. Hemoglobin stable. Hemodynamically stable. I was also informed of the patient's permacath is nonfunctional. She will ultimately need a new permacath insertion. We'll continue to follow. Condition is critical. Family was updated on a regular basis. This critically care evaluation was done more than 30 minutes. Time with Patient: Greater than 30
[2018-11-25] MEDS: ALBUTEROL NEBULIZED 2.5 MG/3 ML INHALATION PRN ×2 (11:38→19:39)
[2018-11-25] MEDS: ERGOCALCIFEROL 50,000 UNIT CAP PO SCH (11:43)
--- NOTE | 2018-11-25 11:46 | P.PN ---
Subjective Progress Note Date: 11/25/18 Interval history: 11/21/18- patient is being seen examined and evaluated today on rounds while covering for Dr. Bandar Paul. This patient is admitted to the hospital with altered mental status likely related to the acute renal failure, hypotension, severe sepsis, hypertension, A. fib with RVR, right lower extremity venous thrombosis, chronic intermittent thromboembolism, pulmonary hypertension, biventricular failure, acute on chronic systolic heart failure, acute on chronic renal failure stage IV, small bilateral pleural effusions, morbid obesity. The patient is on propofol currently on hold to assess mentation. And has been on a heparin drip, levophed, and insulin drip as well. The patient was extubated yesterday and did require reintubation overnight. She is on mechanical ventilation assist control mode with a respiratory rate of 20, tidal volume of 500, FiO2 100% and a PEEP of 5. Hemodialysis is currently on hold per nursing staff.. Capsule Inspector is following this patient closely as well. Hemoglobin is down to 6.4 today. Troponin is elevated at 7.810 cardiology is following the patient closely. All labs and reports have been reviewed. Prognosis is guarded. 11/22/18- patient is being seen examined and evaluated today while covering for Dr. Bandra Paul. She still remains critically ill and in shock. She was unable to go for dialysis yesterday as she was not stable enough. She continues to receive her fluid she also received 2 units of packed red blood cells and her hemoglobin has improved to 8 today. She still continues to require vasopressors at 2 mics. She is noted to have dark blue digits and toes which are cold to the touch however Doppler pulses are able to be obtained. She has a very poor prognosis. TPN may potentially be started per her heel finisher. 11/23/18- patient is being seen examined and evaluated today while covering for Dr. Bandar Paul. She continues to be critically ill, and on mechanical ventilation. Chest x-ray from this morning is unchanged from previous day. Patient was started on TPN. Digits and toes continue to have blue/purple appearance and cold and clammy to the touch with some possible necrotic changes which is continuing to be monitored. She continues on IV heparin, Levophed, propofol, and insulin drips. 11/24/18- patient is being seen examined and evaluated today while covering for Dr. Bandar Paul. The patient continues in the intensive care unit and is critical. Currently she is on spontaneous breathing trials. Her sedation has been weaned off. She is able to follow somewhat simple commands. She still has required Levophed for blood pressure support. Urine output has been ill. She did have dialysis yesterday and is supposed to have dialysis again today. She continues to receive TPN for nutrition., Insulin drip for blood sugar control. Continues with digits and toes being blue/purple appearance and cold and clammy to the touch, pulses obtainable by Doppler only. All labs and reports reviewed. 11/25/18- patient is being seen examined and evaluated today on rounds with covering for Dr. Bandar Paul. The patient is scheduled to go for a tracheostomy placement today with surgical services. She was unable to wean sufficiently with her spontaneous breathing trials yesterday. The patient also got dialysis today. Heparin is on hold for procedure. Hemoglobin is 7.2. Patient does have some improvement in her digits and toes and they are less blue /purple in appearance and less cold and clammy today. Pulse is still obtainable with Doppler. All labs and reports have been Objective - Vital Signs Vital signs: Vital Signs Temp 97.8 F 11/25/18 10:35 Pulse 78 11/25/18 11:39 Resp 20 11/25/18 11:30 BP 118/50 11/25/18 11:30 Pulse Ox 100 11/25/18 11:30 Intake & Output 11/24/18 11/25/18 11/25/18 18:59 06:59 18:59 Intake Total 60 1711.370 932.048 Output Total 20 35 10 Balance 9260.252 9280.370 922.048 Weight 126.4 kg 126.4 kg Intake: IV 1730 1200 740 Cefepime 0.5 gm In Sodium 100 Chloride 0.9% 50 ml @ 100 mls/hr IVPB Q24HR [facility] Rx#:[id number] Cefepime 1 gm In Sodium 100 Chloride 0.9% 50 ml @ 100 mls/hr IVPB Q24HR [facility] Rx #:[id number] Mvi, Adult No.4 with Vit 960 880 480 K 10 ml Trace (Conc-1Ml/ Dose) 1 ml Sodium Acetate 20 meq Potassium Chloride 20 meq Calcium Chloride 330 mg In Amino Acid 5%-D15w 1,000 ml @ 80 mls/hr IV .BY DURATION [facility] Rx#:[id number] Potassium Chloride 10 meq 200 In Water For Injection 1 100ml.bag @ 100 mls/hr IVPB Q1H [facility] Rx#: [id number] Sodium Chloride 0.9% 1, 270 220 60 000 ml @ 10 mls/hr IV . Q24H [facility] Rx#:[id number] metroNIDAZOLE-NS PMX 500 200 100 100 mg In Saline 1 100ml.bag @ 100 mls/hr IVPB Q8HR [facility] Rx#:[id number] Intake, IV Titration 211.604 511.370 132.048 Amount Heparin Sod,Pork in 0.45% 237.475 28.406 NaCl 25,000 unit In 0.45 % NaCl 1 250ml.bag @ 8.45 UNITS/KG/HR 9.97 mls/hr IV .Q24H [facility] Rx#: [id number] Insulin Regular 100 unit 41.333 83.991 31.100 In Sodium Chloride 0.9% 100 ml @ Per Protocol IV .Q0M [facility] Rx#:[id number] Norepinephrine 16 mg In 64.375 Sodium Chloride 0.9% 250 ml @ Titrate IV .Q0M [facility] Rx#:[id number] Norepinephrine 32 mg In 95.8 Sodium Chloride 0.9% 250 ml @ 0.1 MCG/KG/MIN 6 mls /hr IV .Q24H [facility] Rx#: [id number] Propofol 1,000 mg In 105.896 94.104 72.542 Empty Bag 1 bag @ Titrate IV .Q0M [facility] Rx#: [id number] Oral 60 Other 60 Output: Urine 20 35 10 Other: Voiding Method Indwelling Catheter Indwelling Catheter Indwelling Catheter # Voids 0 0 - Exam GENERAL EXAM: On mechanical ventilation with propofol for sedation, morbidly obese HEAD: Normocephalic. EYES: Normal reaction of pupils, equal size. NOSE: Clear with pink turbinates. THROAT: No erythema or exudates. NECK: No masses, no JVD. CHEST: No chest wall deformity. LUNGS: Equal air entry with no crackles, wheeze, rhonchi or dullness. Diminished CVS: S1 and S2 normal with no audible mumurs, regular rhythm. ABDOMEN: No hepatosplenomegaly, normal bowel sounds, no guarding or rigidity. EXTREMITIES: +1 edema noted, blue digits and toes, cold to the touch, pedal pulses obtainable with Doppler. CENTRAL NERVOUS SYSTEM: Unable to assess, on sedation - Labs CBC & Chem 7: 11/25/18 05:45 11/25/18 05:45 Labs: Abnormal Lab Results - Last 24 Hours (Table) 11/24/18 11/24/18 11/24/18 Range/Units 12:02 13:01 14:07 WBC (3.8-10.6) k/uL RBC (3.80-5.40) m/uL Hgb (11.4-16.0) gm/dL Hct (34.0-46.0) % RDW (11.5-15.5) % Plt Count (150-450) k/uL Neutrophils # (1.3-7.7) k/uL APTT (22.0-30.0) sec ABG pCO2 (35-45) mmHg ABG pO2 (83-108) mmHg ABG Total CO2 (19-24) mmol/L ABG O2 Saturation (94-97) % Sodium (137-145) mmol/L BUN (7-17) mg/dL Creatinine (0.52-1.04) mg/dL Glucose (74-99) mg/dL POC Glucose (mg/dL) 121 H 109 H 122 H (75-99) mg/dL Calcium (8.4-10.2) mg/dL 11/24/18 11/24/18 11/24/18 Range/Units 17:00 18:10 19:05 WBC (3.8-10.6) k/uL RBC (3.80-5.40) m/uL Hgb (11.4-16.0) gm/dL Hct (34.0-46.0) % RDW (11.5-15.5) % Plt Count (150-450) k/uL Neutrophils # (1.3-7.7) k/uL APTT (22.0-30.0) sec ABG pCO2 (35-45) mmHg ABG pO2 (83-108) mmHg ABG Total CO2 (19-24) mmol/L ABG O2 Saturation (94-97) % Sodium (137-145) mmol/L BUN (7-17) mg/dL Creatinine (0.52-1.04) mg/dL Glucose (74-99) mg/dL POC Glucose (mg/dL) 270 H 257 H 241 H (75-99) mg/dL Calcium (8.4-10.2) mg/dL 11/24/18 11/24/18 11/24/18 Range/Units 20:39 21:47 22:59 WBC (3.8-10.6) k/uL RBC (3.80-5.40) m/uL Hgb (11.4-16.0) gm/dL Hct (34.0-46.0) % RDW (11.5-15.5) % Plt Count (150-450) k/uL Neutrophils # (1.3-7.7) k/uL APTT (22.0-30.0) sec ABG pCO2 (35-45) mmHg ABG pO2 (83-108) mmHg ABG Total CO2 (19-24) mmol/L ABG O2 Saturation (94-97) % Sodium (137-145) mmol/L BUN (7-17) mg/dL Creatinine (0.52-1.04) mg/dL Glucose (74-99) mg/dL POC Glucose (mg/dL) 214 H 198 H 191 H (75-99) mg/dL Calcium (8.4-10.2) mg/dL 11/24/18 11/25/18 11/25/18 Range/Units 23:56 02:26 03:51 WBC (3.8-10.6) k/uL RBC (3.80-5.40) m/uL Hgb (11.4-16.0) gm/dL Hct (34.0-46.0) % RDW (11.5-15.5) % Plt Count (150-450) k/uL Neutrophils # (1.3-7.7) k/uL APTT (22.0-30.0) sec ABG pCO2 (35-45) mmHg ABG pO2 (83-108) mmHg ABG Total CO2 (19-24) mmol/L ABG O2 Saturation (94-97) % Sodium (137-145) mmol/L BUN (7-17) mg/dL Creatinine (0.52-1.04) mg/dL Glucose (74-99) mg/dL POC Glucose (mg/dL) 165 H 147 H 133 H (75-99) mg/dL Calcium (8.4-10.2) mg/dL 11/25/18 11/25/18 11/25/18 Range/Units 04:58 05:10 05:45 WBC (3.8-10.6) k/uL RBC (3.80-5.40) m/uL Hgb (11.4-16.0) gm/dL Hct (34.0-46.0) % RDW (11.5-15.5) % Plt Count (150-450) k/uL Neutrophils # (1.3-7.7) k/uL APTT 46.6 H (22.0-30.0) sec ABG pCO2 46 H (35-45) mmHg ABG pO2 120 H (83-108) mmHg ABG Total CO2 27 H (19-24) mmol/L ABG O2 Saturation 99.2 H (94-97) % Sodium 130 L (137-145) mmol/L BUN 59 H (7-17) mg/dL Creatinine 3.10 H (0.52-1.04) mg/dL Glucose 154 H (74-99) mg/dL POC Glucose (mg/dL) (75-99) mg/dL Calcium 7.5 L (8.4-10.2) mg/dL 11/25/18 11/25/18 11/25/18 Range/Units 05:45 06:05 06:55 WBC 13.6 H (3.8-10.6) k/uL RBC 2.32 L (3.80-5.40) m/uL Hgb 7.2 L (11.4-16.0) gm/dL Hct 23.1 L (34.0-46.0) % RDW 20.8 H (11.5-15.5) % Plt Count 118 L (150-450) k/uL Neutrophils # 11.1 H (1.3-7.7) k/uL APTT (22.0-30.0) sec ABG pCO2 (35-45) mmHg ABG pO2 (83-108) mmHg ABG Total CO2 (19-24) mmol/L ABG O2 Saturation (94-97) % Sodium (137-145) mmol/L BUN (7-17) mg/dL Creatinine (0.52-1.04) mg/dL Glucose (74-99) mg/dL POC Glucose (mg/dL) 201 H 181 H (75-99) mg/dL Calcium (8.4-10.2) mg/dL 11/25/18 11/25/18 11/25/18 Range/Units 08:13 09:18 10:09 WBC (3.8-10.6) k/uL RBC (3.80-5.40) m/uL Hgb (11.4-16.0) gm/dL Hct (34.0-46.0) % RDW (11.5-15.5) % Plt Count (150-450) k/uL Neutrophils # (1.3-7.7) k/uL APTT (22.0-30.0) sec ABG pCO2 (35-45) mmHg ABG pO2 (83-108) mmHg ABG Total CO2 (19-24) mmol/L ABG O2 Saturation (94-97) % Sodium (137-145) mmol/L BUN (7-17) mg/dL Creatinine (0.52-1.04) mg/dL Glucose (74-99) mg/dL POC Glucose (mg/dL) 166 H 134 H 152 H (75-99) mg/dL Calcium (8.4-10.2) mg/dL 11/25/18 Range/Units 11:00 WBC (3.8-10.6) k/uL RBC (3.80-5.40) m/uL Hgb (11.4-16.0) gm/dL Hct (34.0-46.0) % RDW (11.5-15.5) % Plt Count (150-450) k/uL Neutrophils # (1.3-7.7) k/uL APTT (22.0-30.0) sec ABG pCO2 (35-45) mmHg ABG pO2 (83-108) mmHg ABG Total CO2 (19-24) mmol/L ABG O2 Saturation (94-97) % Sodium (137-145) mmol/L BUN (7-17) mg/dL Creatinine (0.52-1.04) mg/dL Glucose (74-99) mg/dL POC Glucose (mg/dL) 164 H (75-99) mg/dL Calcium (8.4-10.2) mg/dL Microbiology - Last 24 Hours (Table) 11/21/18 11:54 Gram Stain - Final Sputum Sputum Culture - Final Escherichia coli 11/21/18 10:20 Blood Culture - Preliminary Blood No Growth after 72 hours Assessment and Plan Assessment: Assessment Acute on chronic renal failure Acute hypoxic respiratory failure requiring supplemental oxygen and mechanical ventilation metabolic acidosis Biventricular heart failure PE Severe sepsis Altered mental status and metabolic encephalopathy DVT of the right lower extremity small bilateral pleural effusions Plan Plan for tracheostomy placement today with surgical services Medications have been reviewed and will be continued as ordered. Continue with heel finisher recommendations Mechanical ventilation with propofol for sedation Vasopressor support wean as tolerated Hemodialysis per nephrology Continue to monitor hemoglobin Dietary for nutrition Insulin drip as ordered Heparin per cardiology Continue with pulmonary hygiene, coughing and deep breathing exercises, and supportive care. Supplemental oxygen to maintain oxygen saturations of 92% or better. Continue nebulizer treatments. GI and DVT prophylaxis. We will continue to monitor labs/results and adjust treatment as necessary. Further recommendations pending. I, the signing physician performed an examination of the patient, discussed and directed their management with the nurse practitioner. I have reviewed the nurse practitioner's note and agree with the documented findings, orders and plan of care. Nurse practitioner acting as a scribe for the signing physician. Please note we are covering for Dr. Bandar Paul today
[2018-11-25 12:23] LABS: Glucose,Whole Blood 170 mg/dL (75-99)
[2018-11-25 13:29] LABS: Glucose,Whole Blood 177 mg/dL (75-99)
--- NOTE | 2018-11-25 14:01 | PN ---
PROGRESS NOTE Patient is seen for followup for acute kidney injury. Patient remains hemodialysis dependent. She was dialyzed this morning. We had about 2 L of ultrafiltration. However, the catheter was not working well and she needed lot of flushes and heparin will also use for short period of time. Vascular Surgery will be a reconsulted regarding new catheter placement. Currently, patient is maintained on daily dialysis for fluid removal. She remains oliguric at this time. Levophed is at about 11 mcg. Patient remains on the vent. Blood pressure this morning 118/50, heart rate is 72 per minute. Patient is afebrile. Examination of the heart, S1, S2. Examination of the lungs, bilateral breath sounds are heard. Abdomen is soft, distended. Examination of the lower extremities shows edema, 2+ bilaterally. There is discoloration of the toes noted in both feet. CAN CLEANER exam shows patient is moving her extremities. LABS: Show sodium 130, potassium 4.3, chloride 101, BUN 59, serum creatinine 3.1, hemoglobin 7.2 g/dL. ASSESSMENT: 1. Acute kidney injury, currently hemodialysis dependent. We will dialyze her again tomorrow. Reconsult Vascular Surgery for new catheter placement as it is not working well at this time. 2. Anemia. 3. No active GI bleed noted at this time. 4. Ventilator dependent respiratory failure, acute hypoxic respiratory failure. 5. Volume overload, slowly improving. 6. Sepsis with sputum culture growing Escherichia coli. 7. Chronic kidney disease, stage IV with previous creatinine near 3. Etiology diabetic kidney disease. PLAN: Repeat dialysis in a.m. and contact Vascular Surgery for new catheter placement. We will continue with daily dialysis and fluid removal to help with the volume overload. MMODL / IJN: [id number] /
[2018-11-25 14:08] LABS: Glucose,Whole Blood 173 mg/dL (75-99)
[2018-11-25] MEDS ORDERED: fentaNYL (PF) 50 MCG/ML 2 ML AMP ONE (14:34)
[2018-11-25] MEDS ORDERED: ROCURONIUM BROMIDE 10 MG/ML 10 ML VIAL IV ONE (14:34)
[2018-11-25] MEDS ORDERED: SODIUM CHLORIDE 0.9% 500 ML 500 ML IV ONE (14:35)
[2018-11-25 16:25] LABS: Glucose,Whole Blood 165 mg/dL (75-99)
--- NOTE | 2018-11-25 16:31 | P.OP ---
Date of Procedure: 11/25/18 Preoperative Diagnosis: Respiratory failure Postoperative Diagnosis: Respiratory failure Procedure(s) Performed: Tracheostomy Anesthesia: TIKA Surgeon: Huang Menezes Estimated Blood Loss (ml): 10 Pathology: none sent Condition: stable Disposition: PACU Description of Procedure: The patient's placed on the operative table in the supine position. She received general anesthesia. Her neck was prepped and draped usual sterile fashion. A standard Maylin incision was made and then the subcutaneous tissues were divided with a left cautery. The platysma was divided with cautery. The strap muscles were retracted in the midline. The thyroid gland was exposed. The thyroid gland was divided in the midline using electrocautery and the Harmonic scissors. The trachea was then exposed. The tracheal tube cuff was then deflated and the enteral tube was placed in the right mainstem bronchus. The patient was on the ventilator. At this point the tracheotomy was performed between the second and third tracheal rings.. The endotracheal tube was then brought back under direct vision. The #8 Portex tracheostomy tube was placed into the trachea. End tidal CO2 was confirmed. The patient was then connected to the ventilator. The skin was then closed using 2-0 nylon. The tracheostomy tube was secured using umbilical tape. The patient left the OR in stable condition and was sent back to the ICU.
[2018-11-25 17:36] LABS: ABG Base Excess 1.4 mmol/L; ABG HCO3 29 mmol/L (21-25); ABG Oxygen Saturation 59.4 % (94-97); ABG PCO2 67 mmHg (35-45); ABG PH 7.24 (7.35-7.45); ABG TCO2 31 mmol/L (19-24)
[2018-11-25 17:39] LABS: ABG PO2 34 mmHg (83-108)
[2018-11-25 17:45] LABS: Glucose,Whole Blood 166 mg/dL (75-99)
[2018-11-25 19:00] LABS: Glucose,Whole Blood 191 mg/dL (75-99)
[2018-11-25] MEDS: INSULIN REGULAR 100 UNIT in SODIUM CHLORIDE 0.9% 100 ML IV SCH (19:17)
--- NOTE | 2018-11-25 20:02 | XR ---
EXAMINATION: XR chest 1V portable DATE AND TIME: 11/25/2018 7:41 PM CLINICAL INDICATION: PHH; tube placement TECHNIQUE: AP portable semiupright COMPARISON: 11/25/2018 and 6:11 AM FINDINGS: Tubes and lines over the mediastinum are not well seen over the heart and cannot be visuali zed in the epigastrium. Sternal sutures redemonstrated. Right IJ catheter tip superimposed over the mid SVC. Right upper extremity PICC line tip superimposes over the mid SVC. Bilateral silhouetting of the hemidiaphragm with added confluent opacity, greater on the left, is red emonstrated. Findings are consistent with bilateral pleural effusions and partial lower lobe airlessn ess. Concurrent bronchopneumonia can only be excluded clinically. The pulmonary vasculature is silhouetted by a fine reticular pattern of increased density symmetrical ly, which can correlate with a clinical diagnosis of mild interstitial phase pulmonary edema. There is no evidence of pneumothorax. IMPRESSION: OVERALL SIMILAR INFLATION PATTERN WHEN COMPARED TO THE PRIOR CHEST RADIOGRAPH AT 6:11 AM TODAY. LIMITED VISUALIZATION.
[2018-11-25 21:26] LABS: Glucose,Whole Blood 176 mg/dL (75-99)
[2018-11-25] MEDS: NOREPINEPHRINE 32 MG in SODIUM CHLORIDE 0.9% 250 ML IV SCH (21:31)
[2018-11-25 22:23] LABS: Glucose,Whole Blood 168 mg/dL (75-99)
[2018-11-25 23:22] LABS: Glucose,Whole Blood 180 mg/dL (75-99)
[2018-11-26 00:10] LABS: Glucose,Whole Blood 155 mg/dL (75-99)
--- NOTE | 2018-11-26 00:13 | PN ---
PROGRESS NOTE DATE OF SERVICE: 11/25/2018. REASON FOR FOLLOWUP: Aspiration pneumonia. INTERVAL HISTORY: The patient is afebrile. The patient is status post trach and PEG. The patient tolerated the procedure. Hemodynamically stable. PHYSICAL EXAMINATION: On examination, blood pressure 121/57 with a pulse of 75, temperature 98, she is 100% on 40% FiO2. GENERAL: A middle aged female lying in bed in no distress. RESPIRATORY SYSTEM: Unlabored breathing with decreased breath sounds. No wheeze. HEART: S1, S2. Regular rate and rhythm. ABDOMEN: Soft. LABS: Hemoglobin 7.1, hematocrit 13.6, white BUN of 59, creatinine 3.10. Sputum with an E coli. DIAGNOSTIC IMPRESSION AND PLAN: Patient with acute respiratory failure which is likely multifactorial. ASSESSMENT: Component of pneumonitis. The patient is currently on Flagyl, to continue for no while monitoring clinical course closely. Continue supportive care. MMODL / IJN: [id number] /
[2018-11-26 01:03] LABS: Glucose,Whole Blood 147 mg/dL (75-99)
[2018-11-26] MEDS: metroNIDAZOLE-NS PMX 500 MG in SALINE 1 100ML.BAG IVPB SCH ×3 (01:28→15:02)
[2018-11-26 02:09] LABS: Glucose,Whole Blood 159 mg/dL (75-99)
[2018-11-26 04:32] LABS: Glucose,Whole Blood 151 mg/dL (75-99)
[2018-11-26 04:53] LABS: ABG Base Excess -1.1 mmol/L; ABG HCO3 24 mmol/L (21-25); ABG Oxygen Saturation 99.8 % (94-97); ABG PCO2 44 mmHg (35-45); ABG PH 7.36 (7.35-7.45); ABG PO2 136 mmHg (83-108); ABG TCO2 26 mmol/L (19-24)
[2018-11-26] MEDS: ALBUTEROL NEBULIZED 2.5 MG/3 ML INHALATION PRN ×3 (05:34→19:38)
[2018-11-26 06:29] LABS: Anisocytosis Moderate; Basophils % (A) 0 %; Eosinophils # (A) 0.2 k/uL (0-0.7); Eosinophils % (A) 2 %; HCT 22.4 % (34.0-46.0); Hypochromasia Marked; Lymphocytes # (A) 1.6 k/uL (1.0-4.8); Lymphocytes % (A) 11 %; MCH 30.1 pg (25.0-35.0); MCHC 30.4 g/dL (31.0-37.0); Macrocytosis Moderate; Mean Platelet Volume 7.8; Monocytes # (A) 0.6 k/uL (0-1.0); Monocytes % (A) 4 %; Neutrophils # (A) 11.4 k/uL (1.3-7.7); Neutrophils % (A) 81 %; Partial Thromboplastin Time 23.1 sec (22.0-30.0); Platelet Count 105 k/uL (150-450); Poikilocytosis Moderate; Prothrombin Time 10.5 sec (9.0-12.0); RBC 2.27 m/uL (3.80-5.40); RDW 20.5 % (11.5-15.5); WBC 14.1 k/uL (3.8-10.6)
[2018-11-26 06:35] LABS: HGB 6.8 gm/dL (11.4-16.0)
[2018-11-26 06:46] LABS: Glucose,Whole Blood 150 mg/dL (75-99)
[2018-11-26 06:52] LABS: Ionized Calcium 4.8 mg/dL (4.5-5.3)
[2018-11-26 07:06] LABS: Calcium 7.7 mg/dL (8.4-10.2); Magnesium 1.7 mg/dL (1.6-2.3); Phosphorus 2.4 mg/dL (2.5-4.5); Potassium 3.8 mmol/L (3.5-5.1)
[2018-11-26 07:12] LABS: Glucose,Whole Blood 160 mg/dL (75-99)
--- NOTE | 2018-11-26 07:34 | XR ---
EXAMINATION TYPE: XR chest 1V portable DATE OF EXAM: 11/26/2018 CLINICAL HISTORY: EXAMINATION TYPE: XR chest 1V portable DATE OF EXAM: 11/26/2018 COMPARISON: 11/24/2018 HISTORY: SOB, Follow Up FINDINGS: Multiple tubes and catheters are unchanged. Stable bibasilar opacities. Stable appearance of the car jhoana-mediastinal structures. Small bilateral pleural effusions persist. No pneumothorax. IMPRESSION: Overall stable exam.
[2018-11-26] MEDS: PROPOFOL 1,000 MG in EMPTY BAG 1 BAG IV SCH (07:49)
[2018-11-26] MEDS: SODIUM CHLORIDE 0.9% 1,000 ML IV SCH (07:55)
[2018-11-26 08:20] LABS: Glucose,Whole Blood 158 mg/dL (75-99)
[2018-11-26] MEDS: CALCIUM ACETATE 667 MG CAP PO SCH (08:46)
[2018-11-26] MEDS: CEFEPIME 1 GM in SODIUM CHLORIDE 0.9% 50 ML IVPB SCH (09:08)
[2018-11-26] MEDS: PANTOPRAZOLE 40 MG/10 ML VIAL IVP SCH ×2 (09:08→21:23)
[2018-11-26] MEDS: METOPROLOL TARTRATE 25 MG TAB PO SCH ×2 (09:09→21:22)
[2018-11-26] MEDS: CHLORHEXIDINE GLUCONATE 15 ML CUP MUCOUS MEM SCH ×2 (09:09→21:22)
[2018-11-26] MEDS: ATORVASTATIN 40 MG TAB PO SCH (09:10)
[2018-11-26] MEDS: AMIODARONE 200 MG TAB PO SCH ×2 (09:10→21:22)
[2018-11-26] MEDS: INSULIN REGULAR 100 UNIT in SODIUM CHLORIDE 0.9% 100 ML IV SCH ×2 (09:12→23:13)
[2018-11-26 09:15] LABS: Glucose,Whole Blood 158 mg/dL (75-99)
--- NOTE | 2018-11-26 09:47 | P.PN ---
Subjective Patient is seen in follow-up for acute kidney injury on chronic kidney disease. Patient has chronic kidney disease stage IV with baseline creatinine near 3 secondary to diabetic kidney disease. Due to worsening renal function and oliguria, she was started on hemodialysis on November 07. Right IJ catheter is malfunctioning and she had a right groin catheter placed yesterday. She remains intubated. Currently on 11 mics of Levophed. Remains oliguric. No active bleeding. Currently seen while undergoing HD. Afebrile. Currently on vasopressors. General: The patient appeared well nourished and normally developed. HEENT: Head exam is unremarkable. Neck is without jugular venous distension. Intubated. LUNGS: Breath sounds decreased. HEART: Rate and Rhythm are regular. First and second heart sounds normal. No murmurs, rubs or gallops. ABDOMEN: Abdominal exam reveals normal bowel sounds. Non-tender and non- distended. No evidence of peritonitis. EXTREMITITES: 1+ edema. Objective - Vital Signs Vital signs: Vital Signs Temp 98 F 11/26/18 04:00 Pulse 79 11/26/18 07:30 Resp 20 11/26/18 07:30 BP 126/50 11/26/18 04:30 Pulse Ox 96 11/26/18 07:00 Intake & Output 11/25/18 11/26/18 11/26/18 18:59 06:59 18:59 Intake Total 8464.954 3508.111 80 Output Total 223 44 Balance 3045.085 2521.111 80 Weight 126.4 kg Intake: IV 1390 1060 80 Cefepime 1 gm In Sodium 100 Chloride 0.9% 50 ml @ 100 mls/hr IVPB Q24HR [facility] Rx #:[id number] Mvi, Adult No.4 with Vit 800 960 80 K 10 ml Trace (Conc-1Ml/ Dose) 1 ml Sodium Acetate 20 meq Potassium Chloride 20 meq Calcium Chloride 330 mg In Amino Acid 5%-D15w 1,000 ml @ 80 mls/hr IV .BY DURATION [facility] Rx#:[id number] Sodium Chloride 0.9% 1, 140 100 000 ml @ 10 mls/hr IV . Q24H [facility] Rx#:[id number] metroNIDAZOLE-NS PMX 500 100 mg In Saline 1 100ml.bag @ 100 mls/hr IVPB Q8HR [facility] Rx#:[id number] Intake, IV Titration 376.487 359.111 Amount Heparin Sod,Pork in 0.45% 28.406 NaCl 25,000 unit In 0.45 % NaCl 1 250ml.bag @ 8.45 UNITS/KG/HR 9.97 mls/hr IV .Q24H [facility] Rx#: [id number] Insulin Regular 100 unit 56.584 101.000 In Sodium Chloride 0.9% 100 ml @ Per Protocol IV .Q0M [facility] Rx#:[id number] Norepinephrine 32 mg In 25.65 58.111 Sodium Chloride 0.9% 250 ml @ 0.1 MCG/KG/MIN 6 mls /hr IV .Q24H [facility] Rx#: [id number] Propofol 1,000 mg In 265.847 200 Empty Bag 1 bag @ Titrate IV .Q0M [facility] Rx#: [id number] Other 60 Output: Urine 20 44 Stool 200 Estimated Blood Loss 3 Other: Voiding Method Indwelling Catheter Indwelling Catheter # Voids 0 0 ABP, PAP, CO, CI - Last Documented Arterial Blood Pressure 93/46 - Labs CBC & Chem 7: 11/26/18 05:50 11/26/18 05:50 Labs: Abnormal Lab Results - Last 24 Hours (Table) 11/25/18 11/25/18 11/25/18 Range/Units 10:09 11:00 12:12 WBC (3.8-10.6) k/uL RBC (3.80-5.40) m/uL Hgb (11.4-16.0) gm/dL Hct (34.0-46.0) % MCHC (31.0-37.0) g/dL RDW (11.5-15.5) % Plt Count (150-450) k/uL Neutrophils # (1.3-7.7) k/uL ABG pH (7.35-7.45) ABG pCO2 (35-45) mmHg ABG pO2 (83-108) mmHg ABG HCO3 (21-25) mmol/L ABG Total CO2 (19-24) mmol/L ABG O2 Saturation (94-97) % Sodium (137-145) mmol/L BUN (7-17) mg/dL Creatinine (0.52-1.04) mg/dL Glucose (74-99) mg/dL POC Glucose (mg/dL) 152 H 164 H 170 H (75-99) mg/dL Calcium (8.4-10.2) mg/dL Phosphorus (2.5-4.5) mg/dL 11/25/18 11/25/18 11/25/18 Range/Units 13:18 13:57 16:13 WBC (3.8-10.6) k/uL RBC (3.80-5.40) m/uL Hgb (11.4-16.0) gm/dL Hct (34.0-46.0) % MCHC (31.0-37.0) g/dL RDW (11.5-15.5) % Plt Count (150-450) k/uL Neutrophils # (1.3-7.7) k/uL ABG pH (7.35-7.45) ABG pCO2 (35-45) mmHg ABG pO2 (83-108) mmHg ABG HCO3 (21-25) mmol/L ABG Total CO2 (19-24) mmol/L ABG O2 Saturation (94-97) % Sodium (137-145) mmol/L BUN (7-17) mg/dL Creatinine (0.52-1.04) mg/dL Glucose (74-99) mg/dL POC Glucose (mg/dL) 177 H 173 H 165 H (75-99) mg/dL Calcium (8.4-10.2) mg/dL Phosphorus (2.5-4.5) mg/dL 11/25/18 11/25/18 11/25/18 Range/Units 17:33 17:33 18:49 WBC (3.8-10.6) k/uL RBC (3.80-5.40) m/uL Hgb (11.4-16.0) gm/dL Hct (34.0-46.0) % MCHC (31.0-37.0) g/dL RDW (11.5-15.5) % Plt Count (150-450) k/uL Neutrophils # (1.3-7.7) k/uL ABG pH 7.24 L (7.35-7.45) ABG pCO2 67 H (35-45) mmHg ABG pO2 34 L* (83-108) mmHg ABG HCO3 29 H (21-25) mmol/L ABG Total CO2 31 H (19-24) mmol/L ABG O2 Saturation 59.4 L (94-97) % Sodium (137-145) mmol/L BUN (7-17) mg/dL Creatinine (0.52-1.04) mg/dL Glucose (74-99) mg/dL POC Glucose (mg/dL) 166 H 191 H (75-99) mg/dL Calcium (8.4-10.2) mg/dL Phosphorus (2.5-4.5) mg/dL 11/25/18 11/25/18 11/25/18 Range/Units 21:14 22:11 23:10 WBC (3.8-10.6) k/uL RBC (3.80-5.40) m/uL Hgb (11.4-16.0) gm/dL Hct (34.0-46.0) % MCHC (31.0-37.0) g/dL RDW (11.5-15.5) % Plt Count (150-450) k/uL Neutrophils # (1.3-7.7) k/uL ABG pH (7.35-7.45) ABG pCO2 (35-45) mmHg ABG pO2 (83-108) mmHg ABG HCO3 (21-25) mmol/L ABG Total CO2 (19-24) mmol/L ABG O2 Saturation (94-97) % Sodium (137-145) mmol/L BUN (7-17) mg/dL Creatinine (0.52-1.04) mg/dL Glucose (74-99) mg/dL POC Glucose (mg/dL) 176 H 168 H 180 H (75-99) mg/dL Calcium (8.4-10.2) mg/dL Phosphorus (2.5-4.5) mg/dL 11/25/18 11/26/18 11/26/18 Range/Units 23:58 00:52 01:58 WBC (3.8-10.6) k/uL RBC (3.80-5.40) m/uL Hgb (11.4-16.0) gm/dL Hct (34.0-46.0) % MCHC (31.0-37.0) g/dL RDW (11.5-15.5) % Plt Count (150-450) k/uL Neutrophils # (1.3-7.7) k/uL ABG pH (7.35-7.45) ABG pCO2 (35-45) mmHg ABG pO2 (83-108) mmHg ABG HCO3 (21-25) mmol/L ABG Total CO2 (19-24) mmol/L ABG O2 Saturation (94-97) % Sodium (137-145) mmol/L BUN (7-17) mg/dL Creatinine (0.52-1.04) mg/dL Glucose (74-99) mg/dL POC Glucose (mg/dL) 155 H 147 H 159 H (75-99) mg/dL Calcium (8.4-10.2) mg/dL Phosphorus (2.5-4.5) mg/dL 11/26/18 11/26/18 11/26/18 Range/Units 04:20 04:50 05:50 WBC (3.8-10.6) k/uL RBC (3.80-5.40) m/uL Hgb (11.4-16.0) gm/dL Hct (34.0-46.0) % MCHC (31.0-37.0) g/dL RDW (11.5-15.5) % Plt Count (150-450) k/uL Neutrophils # (1.3-7.7) k/uL ABG pH (7.35-7.45) ABG pCO2 (35-45) mmHg ABG pO2 136 H (83-108) mmHg ABG HCO3 (21-25) mmol/L ABG Total CO2 26 H (19-24) mmol/L ABG O2 Saturation 99.8 H (94-97) % Sodium 130 L (137-145) mmol/L BUN 61 H (7-17) mg/dL Creatinine 3.29 H (0.52-1.04) mg/dL Glucose 137 H (74-99) mg/dL POC Glucose (mg/dL) 151 H (75-99) mg/dL Calcium 7.7 L (8.4-10.2) mg/dL Phosphorus 2.4 L (2.5-4.5) mg/dL 11/26/18 11/26/18 11/26/18 Range/Units 05:50 06:34 07:01 WBC 14.1 H (3.8-10.6) k/uL RBC 2.27 L (3.80-5.40) m/uL Hgb 6.8 L* (11.4-16.0) gm/dL Hct 22.4 L (34.0-46.0) % MCHC 30.4 L (31.0-37.0) g/dL RDW 20.5 H (11.5-15.5) % Plt Count 105 L (150-450) k/uL Neutrophils # 11.4 H (1.3-7.7) k/uL ABG pH (7.35-7.45) ABG pCO2 (35-45) mmHg ABG pO2 (83-108) mmHg ABG HCO3 (21-25) mmol/L ABG Total CO2 (19-24) mmol/L ABG O2 Saturation (94-97) % Sodium (137-145) mmol/L BUN (7-17) mg/dL Creatinine (0.52-1.04) mg/dL Glucose (74-99) mg/dL POC Glucose (mg/dL) 150 H 160 H (75-99) mg/dL Calcium (8.4-10.2) mg/dL Phosphorus (2.5-4.5) mg/dL 11/26/18 11/26/18 Range/Units 08:09 09:04 WBC (3.8-10.6) k/uL RBC (3.80-5.40) m/uL Hgb (11.4-16.0) gm/dL Hct (34.0-46.0) % MCHC (31.0-37.0) g/dL RDW (11.5-15.5) % Plt Count (150-450) k/uL Neutrophils # (1.3-7.7) k/uL ABG pH (7.35-7.45) ABG pCO2 (35-45) mmHg ABG pO2 (83-108) mmHg ABG HCO3 (21-25) mmol/L ABG Total CO2 (19-24) mmol/L ABG O2 Saturation (94-97) % Sodium (137-145) mmol/L BUN (7-17) mg/dL Creatinine (0.52-1.04) mg/dL Glucose (74-99) mg/dL POC Glucose (mg/dL) 158 H 158 H (75-99) mg/dL Calcium (8.4-10.2) mg/dL Phosphorus (2.5-4.5) mg/dL Microbiology - Last 24 Hours (Table) 11/21/18 10:20 Blood Culture - Preliminary Blood No Growth after 96 hours Assessment and Plan Plan: Assessment: 1. Acute kidney injury secondary to ATN secondary to hypotension. Creatinine peaked at 5.85 and November 07 and was also oliguric. Currently hemodialysis dependent. No hydronephrosis noted on renal ultrasound. 2. Chronic kidney disease stage IV secondary to diabetic kidney disease and nephrosclerosis with baseline creatinine near 3 according to the patient. Patient follows with a wastewater design engineer out of [place]. 3. Systolic CHF with ejection fraction of 30-35% with severe pulmonary hypertension and moderate tricuspid regurgitation. 4. Volume overload. 5. Hyponatremia secondary to acute kidney injury. She is hypervolemic. 6. Hyperkalemia secondary to acute kidney injury. Improved with dialysis. 7. Diabetes mellitus. 8. Hypotension maintained on 4 mics of Levophed - now on 11 mcs during HD. 9. Hyperphosphatemia secondary to acute kidney injury. Maintained on PhosLo. Phosphorus 2.4 today. 10. Acute blood loss anemia secondary to GI bleed. Status post blood transfusion and IV DDAVP on November 10. Status post EGD on November 10 which revealed ischemic areas in the antrum. Scheduled for blood transfusion today. 11. NSTEMI. Cardiology following. 12. A. fib with RVR status post amiodarone drip. Now rate controlled. 13. Hypocalcemia secondary to acute kidney injury. Better. 14. Status post tracheostomy. Plan: Currently seen while undergoing hemodialysis. Wean Levophed. Continue to monitor renal function and urine output. Next hemodialysis treatment on Wednesday. Will try to resume tube feeding and wean TPN to reduce the volume given. Discussed with director orange. Discontinue PhosLo.
[2018-11-26 10:17] LABS: Glucose,Whole Blood 140 mg/dL (75-99)
[2018-11-26 11:11] LABS: Glucose,Whole Blood 134 mg/dL (75-99)
[2018-11-26] MEDS: NOREPINEPHRINE 32 MG in SODIUM CHLORIDE 0.9% 250 ML IV SCH (11:12)
--- NOTE | 2018-11-26 11:26 | PN ---
PROGRESS NOTE Mrs. Monahan is a 58-year-old female who has a history of premature coronary artery disease, history of severe peripheral vascular disease, end-stage renal disease, on hemodialysis, anemia. She remains intubated. She has received tracheostomy and placement of a Dobbhoff tube. She continues be in atrial fibrillation with controlled ventricular response. She has no significant bradycardia or ventricular ectopic activity. She continues to be on norepinephrine. She is scheduled to undergo dialysis today. She continues to be at this time on amiodarone 200 mg twice a day, metoprolol tartrate 25 mg twice a day, and IV heparin. PHYSICAL EXAMINATION: Blood pressure 93/50 with a heart rate in the 70s. LUNGS: Clear anteriorly. HEART: Irregularly irregular. S1, S2. No S3, with systolic murmur. ABDOMEN: Soft, obese. No clear organomegaly. EXTREMITIES: Plus two edema with discoloration of the toes and fingers noted. LAB DATA/IMAGING: Lab data revealed a hemoglobin of 6.8, white blood cells of 14.1, platelet count of 105, BUN and creatinine of 61 and 3.29. Chest x-ray shows no infiltrate. IMPRESSION: 1. Respiratory failure with a combination of fluid overload and possible pneumonia. 2. Atrial fibrillation, rate controlled. 3. Status post coronary artery bypass grafting. 4. Ischemic cardiomyopathy. 5. Chronic kidney disease, on hemodialysis. 6. Severe peripheral vascular disease. 7. Volume overload. 8. Diabetes mellitus. RECOMMENDATIONS: Will continue supportive care. The patient is to continue on the feeding. Attempt to obtain a sedation holiday and see her progress will be started by Dr. Vance. Will follow her renal function. The prognosis remains guarded. MMODL / IJN: [id number] /
[2018-11-26 12:10] LABS: Glucose,Whole Blood 133 mg/dL (75-99)
[2018-11-26] MEDS: HEPARIN SOD,PORK IN 0.45% NACL 25,000 UNIT in 0.45% NACL 1 250ML.BAG IV SCH (12:22)
--- NOTE | 2018-11-26 12:47 | P.PN ---
Subjective Progress Note Date: 11/26/18 11/21/18- patient is being seen examined and evaluated today on rounds while covering for Dr. Bandar Paul. This patient is admitted to the hospital with altered mental status likely related to the acute renal failure, hypotension, severe sepsis, hypertension, A. fib with RVR, right lower extremity venous thrombosis, chronic intermittent thromboembolism, pulmonary hypertension, biventricular failure, acute on chronic systolic heart failure, acute on chronic renal failure stage IV, small bilateral pleural effusions, morbid obesity. The patient is on propofol currently on hold to assess mentation. And has been on a heparin drip, levophed, and insulin drip as well. The patient was extubated yesterday and did require reintubation overnight. She is on mechanical ventilation assist control mode with a respiratory rate of 20, tidal volume of 500, FiO2 100% and a PEEP of 5. Hemodialysis is currently on hold per nursing staff.. Tutor Coordinator is following this patient closely as well. Hemoglobin is down to 6.4 today. Troponin is elevated at 7.810 cardiology is following the patient closely. All labs and reports have been reviewed. Prognosis is guarded. 11/22/18- patient is being seen examined and evaluated today while covering for Dr. Bandar Paul. She still remains critically ill and in shock. She was unable to go for dialysis yesterday as she was not stable enough. She continues to receive her fluid she also received 2 units of packed red blood cells and her hemoglobin has improved to 8 today. She still continues to require vasopressors at 2 mics. She is noted to have dark blue digits and toes which are cold to the touch however Doppler pulses are able to be obtained. She has a very poor prognosis. TPN may potentially be started per her flexographic press set up operator. 11/23/18- patient is being seen examined and evaluated today while covering for Dr. Bandar Paul. She continues to be critically ill, and on mechanical ventilation. Chest x-ray from this morning is unchanged from previous day. Patient was started on TPN. Digits and toes continue to have blue/purple appearance and cold and clammy to the touch with some possible necrotic changes which is continuing to be monitored. She continues on IV heparin, Levophed, propofol, and insulin drips. 11/24/18- patient is being seen examined and evaluated today while covering for Dr. Bandar Paul. The patient continues in the intensive care unit and is critical. Currently she is on spontaneous breathing trials. Her sedation has been weaned off. She is able to follow somewhat simple commands. She still has required Levophed for blood pressure support. Urine output has been ill. She did have dialysis yesterday and is supposed to have dialysis again today. She continues to receive TPN for nutrition., Insulin drip for blood sugar control. Continues with digits and toes being blue/purple appearance and cold and clammy to the touch, pulses obtainable by Doppler only. All labs and reports reviewed. 11/25/18- patient is being seen examined and evaluated today on rounds with covering for Dr. Bandar Paul. The patient is scheduled to go for a tracheostomy placement today with surgical services. She was unable to wean sufficiently with her spontaneous breathing trials yesterday. The patient also got dialysis today. Heparin is on hold for procedure. Hemoglobin is 7.2. Patient does have some improvement in her digits and toes and they are less blue /purple in appearance and less cold and clammy today. Pulse is still obtainable with Doppler. All labs and reports have been 11/26/2018: Patient seen and examined in the intensive care unit covering for Dr. Bandar Samuels. The patient underwent tracheostomy placement yesterday. Per nursing she is able to titrate down on the Levophed. The patient is currently undergoing hemodialysis. The patient has anasarca and is grossly edematous in all extremities. She does arouse to verbal and tactile stimuli. She does follow commands. Objective - Vital Signs Vital signs: Vital Signs Temp 97.9 F 11/26/18 12:15 Pulse 93 11/26/18 12:15 Resp 20 11/26/18 12:15 BP 142/72 11/26/18 12:15 Pulse Ox 96 11/26/18 12:15 Intake & Output 11/25/18 11/26/18 11/26/18 18:59 06:59 18:59 Intake Total 5781.154 1905.550 1493.022 Output Total 223 44 Balance 4979.345 6395.550 1493.022 Weight 126.4 kg Intake: IV 1390 1060 80 Cefepime 1 gm In Sodium 100 Chloride 0.9% 50 ml @ 100 mls/hr IVPB Q24HR [facility] Rx #:[id number] Mvi, Adult No.4 with Vit 800 960 80 K 10 ml Trace (Conc-1Ml/ Dose) 1 ml Sodium Acetate 20 meq Potassium Chloride 20 meq Calcium Chloride 330 mg In Amino Acid 5%-D15w 1,000 ml @ 80 mls/hr IV .BY DURATION [facility] Rx#:[id number] Sodium Chloride 0.9% 1, 140 100 000 ml @ 10 mls/hr IV . Q24H [facility] Rx#:[id number] metroNIDAZOLE-NS PMX 500 100 mg In Saline 1 100ml.bag @ 100 mls/hr IVPB Q8HR [facility] Rx#:[id number] Intake, IV Titration 376.487 812.480 3138.022 Amount Heparin Sod,Pork in 0.45% 28.406 6.687 NaCl 25,000 unit In 0.45 % NaCl 1 250ml.bag @ 8.45 UNITS/KG/HR 9.97 mls/hr IV .Q24H [facility] Rx#: [id number] Insulin Regular 100 unit 56.584 101.000 15.783 In Sodium Chloride 0.9% 100 ml @ Per Protocol IV .Q0M [facility] Rx#:[id number] Mvi, Adult No.4 with Vit 1034.3 K 10 ml Trace (Conc-1Ml/ Dose) 1 ml Sodium Acetate 20 meq Potassium Chloride 20 meq Calcium Chloride 0.33 gm In Amino Acid 5%-D15w 1,000 ml @ 80 mls/hr IV .BY DURATION [facility] Rx#:[id number] Norepinephrine 32 mg In 25.65 128.550 10.362 Sodium Chloride 0.9% 250 ml @ 0.1 MCG/KG/MIN 6 mls /hr IV .Q24H [facility] Rx#: [id number] Propofol 1,000 mg In 265.847 200 35.89 Empty Bag 1 bag @ Titrate IV .Q0M [facility] Rx#: [id number] Blood Product 310 Rc As-1 Unit 310 [id number] Other 60 Output: Urine 20 44 Stool 200 Estimated Blood Loss 3 Other: Voiding Method Indwelling Catheter Indwelling Catheter # Voids 0 0 ABP, PAP, CO, CI - Last Documented Arterial Blood Pressure 93/46 - Exam GENERAL EXAM: On mechanical ventilation with propofol for sedation, morbidly obese HEAD: Normocephalic. EYES: Normal reaction of pupils, equal size. NOSE: Clear with pink turbinates. THROAT: No erythema or exudates. NECK: No masses, no JVD. CHEST: No chest wall deformity. LUNGS: Diminished with scattered rhonchi CVS: S1 and S2 normal with no audible mumurs, regular rhythm. ABDOMEN: No hepatosplenomegaly, normal bowel sounds, no guarding or rigidity. EXTREMITIES: +1 edema noted, blue digits and toes, cold to the touch, pedal pulses obtainable with Doppler. CENTRAL NERVOUS SYSTEM: Unable to assess, on sedation - Labs CBC & Chem 7: 11/26/18 05:50 11/26/18 05:50 Labs: Abnormal Lab Results - Last 24 Hours (Table) 11/25/18 11/25/18 11/25/18 Range/Units 13:18 13:57 16:13 WBC (3.8-10.6) k/uL RBC (3.80-5.40) m/uL Hgb (11.4-16.0) gm/dL Hct (34.0-46.0) % MCHC (31.0-37.0) g/dL RDW (11.5-15.5) % Plt Count (150-450) k/uL Neutrophils # (1.3-7.7) k/uL ABG pH (7.35-7.45) ABG pCO2 (35-45) mmHg ABG pO2 (83-108) mmHg ABG HCO3 (21-25) mmol/L ABG Total CO2 (19-24) mmol/L ABG O2 Saturation (94-97) % Sodium (137-145) mmol/L BUN (7-17) mg/dL Creatinine (0.52-1.04) mg/dL Glucose (74-99) mg/dL POC Glucose (mg/dL) 177 H 173 H 165 H (75-99) mg/dL Calcium (8.4-10.2) mg/dL Phosphorus (2.5-4.5) mg/dL Crossmatch 11/25/18 11/25/18 11/25/18 Range/Units 17:33 17:33 18:49 WBC (3.8-10.6) k/uL RBC (3.80-5.40) m/uL Hgb (11.4-16.0) gm/dL Hct (34.0-46.0) % MCHC (31.0-37.0) g/dL RDW (11.5-15.5) % Plt Count (150-450) k/uL Neutrophils # (1.3-7.7) k/uL ABG pH 7.24 L (7.35-7.45) ABG pCO2 67 H (35-45) mmHg ABG pO2 34 L* (83-108) mmHg ABG HCO3 29 H (21-25) mmol/L ABG Total CO2 31 H (19-24) mmol/L ABG O2 Saturation 59.4 L (94-97) % Sodium (137-145) mmol/L BUN (7-17) mg/dL Creatinine (0.52-1.04) mg/dL Glucose (74-99) mg/dL POC Glucose (mg/dL) 166 H 191 H (75-99) mg/dL Calcium (8.4-10.2) mg/dL Phosphorus (2.5-4.5) mg/dL Crossmatch 11/25/18 11/25/18 11/25/18 Range/Units 21:14 22:11 23:10 WBC (3.8-10.6) k/uL RBC (3.80-5.40) m/uL Hgb (11.4-16.0) gm/dL Hct (34.0-46.0) % MCHC (31.0-37.0) g/dL RDW (11.5-15.5) % Plt Count (150-450) k/uL Neutrophils # (1.3-7.7) k/uL ABG pH (7.35-7.45) ABG pCO2 (35-45) mmHg ABG pO2 (83-108) mmHg ABG HCO3 (21-25) mmol/L ABG Total CO2 (19-24) mmol/L ABG O2 Saturation (94-97) % Sodium (137-145) mmol/L BUN (7-17) mg/dL Creatinine (0.52-1.04) mg/dL Glucose (74-99) mg/dL POC Glucose (mg/dL) 176 H 168 H 180 H (75-99) mg/dL Calcium (8.4-10.2) mg/dL Phosphorus (2.5-4.5) mg/dL Crossmatch 11/25/18 11/26/18 11/26/18 Range/Units 23:58 00:52 01:58 WBC (3.8-10.6) k/uL RBC (3.80-5.40) m/uL Hgb (11.4-16.0) gm/dL Hct (34.0-46.0) % MCHC (31.0-37.0) g/dL RDW (11.5-15.5) % Plt Count (150-450) k/uL Neutrophils # (1.3-7.7) k/uL ABG pH (7.35-7.45) ABG pCO2 (35-45) mmHg ABG pO2 (83-108) mmHg ABG HCO3 (21-25) mmol/L ABG Total CO2 (19-24) mmol/L ABG O2 Saturation (94-97) % Sodium (137-145) mmol/L BUN (7-17) mg/dL Creatinine (0.52-1.04) mg/dL Glucose (74-99) mg/dL POC Glucose (mg/dL) 155 H 147 H 159 H (75-99) mg/dL Calcium (8.4-10.2) mg/dL Phosphorus (2.5-4.5) mg/dL Crossmatch 11/26/18 11/26/18 11/26/18 Range/Units 04:20 04:50 05:50 WBC (3.8-10.6) k/uL RBC (3.80-5.40) m/uL Hgb (11.4-16.0) gm/dL Hct (34.0-46.0) % MCHC (31.0-37.0) g/dL RDW (11.5-15.5) % Plt Count (150-450) k/uL Neutrophils # (1.3-7.7) k/uL ABG pH (7.35-7.45) ABG pCO2 (35-45) mmHg ABG pO2 136 H (83-108) mmHg ABG HCO3 (21-25) mmol/L ABG Total CO2 26 H (19-24) mmol/L ABG O2 Saturation 99.8 H (94-97) % Sodium 130 L (137-145) mmol/L BUN 61 H (7-17) mg/dL Creatinine 3.29 H (0.52-1.04) mg/dL Glucose 137 H (74-99) mg/dL POC Glucose (mg/dL) 151 H (75-99) mg/dL Calcium 7.7 L (8.4-10.2) mg/dL Phosphorus 2.4 L (2.5-4.5) mg/dL Crossmatch 11/26/18 11/26/18 11/26/18 Range/Units 05:50 06:34 07:01 WBC 14.1 H (3.8-10.6) k/uL RBC 2.27 L (3.80-5.40) m/uL Hgb 6.8 L* (11.4-16.0) gm/dL Hct 22.4 L (34.0-46.0) % MCHC 30.4 L (31.0-37.0) g/dL RDW 20.5 H (11.5-15.5) % Plt Count 105 L (150-450) k/uL Neutrophils # 11.4 H (1.3-7.7) k/uL ABG pH (7.35-7.45) ABG pCO2 (35-45) mmHg ABG pO2 (83-108) mmHg ABG HCO3 (21-25) mmol/L ABG Total CO2 (19-24) mmol/L ABG O2 Saturation (94-97) % Sodium (137-145) mmol/L BUN (7-17) mg/dL Creatinine (0.52-1.04) mg/dL Glucose (74-99) mg/dL POC Glucose (mg/dL) 150 H 160 H (75-99) mg/dL Calcium (8.4-10.2) mg/dL Phosphorus (2.5-4.5) mg/dL Crossmatch 11/26/18 11/26/18 11/26/18 Range/Units 08:09 09:04 09:20 WBC (3.8-10.6) k/uL RBC (3.80-5.40) m/uL Hgb (11.4-16.0) gm/dL Hct (34.0-46.0) % MCHC (31.0-37.0) g/dL RDW (11.5-15.5) % Plt Count (150-450) k/uL Neutrophils # (1.3-7.7) k/uL ABG pH (7.35-7.45) ABG pCO2 (35-45) mmHg ABG pO2 (83-108) mmHg ABG HCO3 (21-25) mmol/L ABG Total CO2 (19-24) mmol/L ABG O2 Saturation (94-97) % Sodium (137-145) mmol/L BUN (7-17) mg/dL Creatinine (0.52-1.04) mg/dL Glucose (74-99) mg/dL POC Glucose (mg/dL) 158 H 158 H (75-99) mg/dL Calcium (8.4-10.2) mg/dL Phosphorus (2.5-4.5) mg/dL Crossmatch See Detail 11/26/18 11/26/18 11/26/18 Range/Units 10:05 11:00 11:59 WBC (3.8-10.6) k/uL RBC (3.80-5.40) m/uL Hgb (11.4-16.0) gm/dL Hct (34.0-46.0) % MCHC (31.0-37.0) g/dL RDW (11.5-15.5) % Plt Count (150-450) k/uL Neutrophils # (1.3-7.7) k/uL ABG pH (7.35-7.45) ABG pCO2 (35-45) mmHg ABG pO2 (83-108) mmHg ABG HCO3 (21-25) mmol/L ABG Total CO2 (19-24) mmol/L ABG O2 Saturation (94-97) % Sodium (137-145) mmol/L BUN (7-17) mg/dL Creatinine (0.52-1.04) mg/dL Glucose (74-99) mg/dL POC Glucose (mg/dL) 140 H 134 H 133 H (75-99) mg/dL Calcium (8.4-10.2) mg/dL Phosphorus (2.5-4.5) mg/dL Crossmatch Microbiology - Last 24 Hours (Table) 11/21/18 10:20 Blood Culture - Preliminary Blood No Growth after 120 hours Assessment and Plan Assessment: Acute on chronic renal failure Acute hypoxic respiratory failure requiring supplemental oxygen and mechanical ventilation - fluid overload with a component of pna - ecoli Small bilateral pleural effusions Atrial fibrillation, now rate controlled Ischemic cardiomyopathy Sepsis shock Altered mental status and metabolic encephalopathy DVT of the right lower extremity small bilateral pleural effusions Suspect GIB CKD IV, now ESRD on HD Severe anemia NSTEMI, Hx ASCAD and CABG Peripheral vascular disease DM2 Plan Tracheostomy placed Patient may need PEG tube in the near future, initiate tube feeds via [place] for now Medications have been reviewed and will be continued as ordered. 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 Supplemental oxygen to maintain oxygen saturations of 92% or better. Continue nebulizer treatments. GI and DVT prophylaxis. We will continue to monitor labs/results and adjust treatment as necessary. Further recommendations pending. Patient seen and examined covering for Dr. Bandar Paul.
[2018-11-26 13:04] LABS: Glucose,Whole Blood 137 mg/dL (75-99)
[2018-11-26 14:17] LABS: Glucose,Whole Blood 171 mg/dL (75-99)
[2018-11-26] MEDS ORDERED: POTASSIUM PHOSPHATE 10 MMOL in SODIUM CHLORIDE 0.9% 100 ML IV ONE (15:00)
[2018-11-26] MEDS: MAGNESIUM SULFATE-D5W PMX 1 GM in DEXTROSE/WATER 1 100ML.BAG IVPB SCH ×2 (15:03→15:35)
--- NOTE | 2018-11-26 15:17 | P.PN ---
Subjective Progress Note Date: 11/26/18 This is an extremely sick intensive care unit patient, and my evaluation uncovering this patient for Dr. Gordillo upon his request. I noted the patient's history and review the records. I also met the family including her and the daughter. In summary, the patient is an extensive cardiac history including previous history of coronary artery disease and previous bypass surgery 2008, peripheral artery disease and previous vascular bypass to the lower extremities, CHF with impaired ejection fraction of 35%, pulmonary hypertension, history of chronic renal failure with stage IV kidney disease, chronic atrial fibrillation, previous history of a right lower extremity DVT, bruises support embolism, obstructive sleep apnea, obesity, who has been in the intensive care unit for altered mental status. During the course of the treatment the patient was intubated and placed on mechanical ventilator. During the course of treatments, the patient required pressors and the patient was being treated with levo fed for hemodynamic support. She ultimately went into end-stage renal disease and the patient had to be dialyzed via temporary dialysis catheter that was inserted in the right IJ. During the course of the treatment, the patient was also noted to have episodic GI bleed while being on anticoagulation for DVT. Plastic surgery was also consulted for possibility of an underlying IVC filter placement Rise to my morning rounds, the patient was already decompensating. The nursing staff had called Dr. Grodillo early this morning for issues related diminished level of consciousness, unresponsiveness, worsening shortness of breath and consented the patient may not be able to protect her airways. At that point, in order was given to intubate the patient and put on a mechanical ventilator. The patient was already intubated, arrival. The patient was an assist-control mode of ventilator. The patient had a post intubation chest exit that showed evidence of pulmonary edema. She was around 2 cm above the nieves. The patient had a temporary.scattered on the right and small bilateral pleural effusion right more than left in addition to some atelectatic changes in lung bases bilaterally. Apparently, BiPAP was attempted prior to intubation process however the patient failed the BiPAP. Hemodynamically, the patient is in atrial fibrillation. The patient is currently on a combination of Lopressor 25 mg by mouth twice a day and amiodarone 400 mg by mouth twice a day. Nevertheless, post intubation the patient had to go back on pressors to maintain a mean artery pressure above 65. Urine output was low. The patient was having bloody stool this being collected in a fecal management system. I repeated the hemoglobin that came down to 6.4. At that point a body ordered to liters of IV fluid in the form of normal saline and 2 units of packed RBC. The patient was already on sedation and she was, comfortable. Abdomen was nondistended yet she had significant amount of edema in all 4 extremities. The patient was afebrile. White cell count was not elevated. The patient however the most rated necrotic digits in the feet bilaterally and the pulses were quite diminished in all 4 extremities and there were only obtained by Doppler signal. The PPT was subtherapeutic and adjustments on the heparin infusion is to follow. The blood gas showed a pH of 7.32 with a pCO2 of 42 and pO2 more than 400 and based on that the FiO2 was weaned down to 50% and the PEEP was kept at 5. The patient is a tidal volume of 450. Antibiotics was added on empiric basis and the patient was placed on a combination of cefepime and Flagyl suspecting ischemic colitis as the patient's was having chronic abdominal pain and she is a vasculopath is very much likely that she has symptoms of chronic mesenteric ischemia with possibly an acute ischemic component contributing to her bloody diarrhea. On today's evaluation of 11/22/2018, this patient remains critically ill. The patient is still sedated with Diprivan which is running at 20 g per KG per minute. She can easily aroused from sedation. At times we have also seen and follows some simple commands. As such, neurologically there is adequate function that we think of based on our sedation holiday that were given briefly to this patient. From the pulmonary standpoint, the patient remains on a mechanical ventilator and an assist-control mode with tidal volume of 500, FiO2 of 40% with a PEEP of 5 and the rate of 20. Blood gas was not obtained as the patient does not have any arterial line access at this point in time. The chest x-ray from today shows no significant change compared to yesterday. The patient has small bilateral pleural effusion and atelectatic changes in lung bases. There is a right-sided PICC line catheter in place. ET tube also is in a good location and there is no consolidation or airspace disease. Hemodynamically, the patient received a total of 2 L of IV fluids yesterday in the form of normal saline and the patient also received 2 units of packed RBC. Subsequent hemoglobin came up to 8.0. The patient has been kept on her pressors and currently she is on 2 g per KG of per minute of norepinephrine infusion. Urine output is in order of 0 mL an hour. The patient is a producing any urine output at this point in time. The plan is to proceed with dialysis today. The patient has a temper dialysis catheter in her right IJ. The dose will be done today. In terms of GI bleed, as mentioned the patient had on and off melanotic stools. EGD that was done earlier by GI on 11/10/2018 showed some ischemic changes in the antrum and the body of the stomach. Colonoscopy was not done. I suspect that there may be a ischemic bowel as the patient has symptoms that were typical of chronic mesenteric ischemia as the patient has chronic atherosclerotic disease. The patient is still covered with broad-spectrum antibiotics. Yesterday. Currently the patient is on a combination of IV Flagyl and IV cefepime. She is afebrile. White cell count is not elevated. The cardiac enzymes were positive in the setting of this massive shock state of the patient counted yesterday. Troponin initially came back at 6.8 and subsequently peaked at 7.9. Cardiology is on the case. No interventions are being planned for now. The patient remains nothing by mouth. I think TPN needs to be started on this patient for nutritional support. She remains on IV heparin regarding her right lower extremity DVT. In terms of the ischemic necrotic changes in his digits and toes, these are somewhat improved compared to yesterday. Pulses are obtained by Doppler. No palpable pulses in all 4 extremities that remain cold and clammy. No other significant events overnight. I have elected discussion with the patient's yesterday explained to him the critical nature of the condition. I also think he has a good understanding. I tried to fill in a lot of details regarding her chronic cardiac history, peripheral vascular disease, renal disease, etc. The daughter was more aware and receptive of the ongoing medical problems. On today's evaluation of 11/23/2018, I'm seeing this patient for a follow-up. This patient remains on a mechanical ventilator. She remains intubated. This morning, she is assist-control mode at the rate of 20 with tidal volume of 500 and FiO2 of 40% with a PEEP of 5. The blood gases from today showed a pH of 7.30 with a pCO2 of 44 and pO2 133. Chest x-ray from this morning showed that the tube was in a good location. There was some pulmonary vascular congestion. For the most part the x-ray findings are essentially stable. ET tube was in a good location. The patient indwelling tubes remain unchanged. No significant orotracheal secretions. Hemodynamically, the patient is still low dose pressors which is currently running at 2 g per KG or permanent of norepinephrine infusion. The patient underwent a successful yesterday another session of dialysis was given to her today. Overall she had 2 L of ultrafiltration today and the same was done yesterday. Her volume status is slightly improved. The patient overall looks in significant overload still with extensive edema in all 4 extremities. The patient is afebrile. The patient is on empiric antibiotic coverage utilizing a combination of cefepime and Flagyl. The patient is still having some liquid the body stool with seems to be melanotic in nature. She is on IV protonic stitches on IV heparin regarding a left lower extremity DVT. The cardiac rhythm is atrial fibrillation with a controlled rate. TPN is being utilized and the patient remains nothing by mouth for now. Clinically, she is easily arousable 1. Sedation. A sedation holiday was given to her and the patient was able to follow some simple commands. Based on this, sedation was resumed and currently Diprivan is running at 20 mics. The patient's lower extremities are warm and compared to yesterday. The pulses are very much diminished and there obtained by Doppler signal. No worsening in the digital necrosis both in the fingers or in the feet bilaterally. The white cell count is at 13. Hemoglobin stable at 7.8. No significant metabolic acidosis. Rest of the electrolytes are all stable and within normal limits. On 11/24/2018, patient is being seen in follow-up. Remains in the intensive care unit. Remains on a mechanical ventilator. Vent settings are essentially unchanged. She is on assist control mode of ventilation. Tidal volume is at 500 and FiO2 of 40% and a PEEP of 5. Blood gases showed a pH of 7.36 with a pCO2 of 44 and pO2 of 121. Chest x-ray shows no acute abnormalities. There is improvement in the volume status with some limited bibasilar atelectatic changes. Otherwise no other acute of the masses are noted. Hemodynamically, the patient remains in atrial fibrillation. The patient is still requiring norepinephrine infusion for hemodynamic support and the levo fed is running somewhere between 4 and 5 mg per KG per minute. No urine output. Dialysis was done yesterday another session of dialysis will be done today. We'll proceed with the sedation holiday and checking the patient's weaning parameters. I think overall, the patient may not a be a good candidate for extubation. This has been tried daily, the patient failed. I have opened the discussion of the possibility of needing a tracheostomy with the family. The family was receptive. A surgical consultation will also be obtained. She is not having any GI bleed. Minimal amount of brown to dark stool but is being cannulated in the fecal management system. The patient remains on IV heparin. Hemoglobin stable at 7.2. She is afebrile. She remains on the same antibiotic coverage. She is receiving TPN for nutritional support. She is on insulin drip for blood sugar control. She is also on Diprivan which is currently running at 20 g per KG per minute. She has still extensive edema and third spacing in all 4 extremities. Pulses are diminished in all 4 extremities that there barely palpable and are obtainable by Doppler signals. Cyanotic changes in the digits are seen in the feet and in the hands. On 11/25/2018, I'm seeing this patient for a follow-up. The tentative plan is for this patient to undergo a tracheostomy tube insertion today. Yesterday, the patient was given a spontaneous breathing trial with upper support of 5 and PEEP of 5. After 45 minutes, she became quite uncomfortable and she started getting tachypneic and tachycardic. Based on that this point is breathing trial was aborted and no extubation was performed. As planned, we'll going to proceed with a tracheostomy tube insertion today. The patient is on sedation with Diprivan 35 mics. The patient got dialyzed today. She remains on the same vent setting. She is assist-control mode with a tidal volume of 500 and FiO2 40% and a PEEP of 5 and a rate of 20. Blood gases are noted this morning with a pH of 7.35 with a pCO2 of 46 and pO2 120. No cervical leukocytosis. No fever. No urine output. IV heparin is on hold awaiting the tracheostomy tube insertion. She is receiving preoperative support. Hemoglobin stable at 7.2. No evidence of any acute GI bleeding. No other significant events over the past 24 hours. Family is agreeable for the procedure. I discussed with the patient family on multiple occasions. On today's evaluation of 11/26/2018, the patient underwent her tracheostomy tube insertion without any major complication. A new dialysis catheter was also inserted in her right IJ. She is off sedation. She is opening up her eyes. She is following simple commands. She is interactive. She remains on her same vent setting. She is off sedation. Her ventilator is currently set at the rate of 20 with a PEEP of 5 and FiO2 of 40% with a tidal volume of 500. The chest x-ray findings are stable. The blood gases showed a pH of 7.36 with a pCO2 of 44 and pO2 of 136. Morning hemoglobin was at 6.8 and the patient will be given a unit of packed RBC. There is no convincing evidence that patient is having active GI bleed and we decided to restart IV heparin today and start tube feeding for now at a very low rate and assess the patient's ability to tolerate tube feeding. She started on TPN for nutritional support. She remains considerably swollen either the patient is still having difficulty amount of fluid intake which is not matching ultrafiltration at this being done on a daily basis. She underwent hemodialysis and ultrafiltration today. Around 20 half liters of fluid was removed. The patient is still on 10 mics of norepinephrine infusion for hemodynamic support. She remains in atrial fibrillation. Objective - Vital Signs Vital signs: Vital Signs Temp 97.9 F 11/26/18 12:15 Pulse 77 11/26/18 12:30 Resp 20 11/26/18 12:30 BP 104/49 11/26/18 12:30 Pulse Ox 99 11/26/18 12:30 Intake & Output 11/25/18 11/26/18 11/26/18 18:59 06:59 18:59 Intake Total 6028.364 3168.550 2223.022 Output Total 223 44 4 Balance 3237.944 5204.550 2219.022 Weight 126.4 kg Intake: IV 1390 1060 780 Cefepime 1 gm In Sodium 100 100 Chloride 0.9% 50 ml @ 100 mls/hr IVPB Q24HR [facility] Rx #:[id number] Mvi, Adult No.4 with Vit 400 K 10 ml Trace (Conc-1Ml/ Dose) 1 ml Sodium Acetate 20 meq Potassium Chloride 20 meq Calcium Chloride 0.33 gm In Amino Acid 5%-D15w 1,000 ml @ 80 mls/hr IV .BY DURATION [facility] Rx#:[id number] Mvi, Adult No.4 with Vit 800 960 80 K 10 ml Trace (Conc-1Ml/ Dose) 1 ml Sodium Acetate 20 meq Potassium Chloride 20 meq Calcium Chloride 330 mg In Amino Acid 5%-D15w 1,000 ml @ 80 mls/hr IV .BY DURATION [facility] Rx#:[id number] Sodium Chloride 0.9% 1, 140 100 100 000 ml @ 10 mls/hr IV . Q24H [facility] Rx#:[id number] metroNIDAZOLE-NS PMX 500 100 100 mg In Saline 1 100ml.bag @ 100 mls/hr IVPB Q8HR [facility] Rx#:[id number] Intake, IV Titration 376.487 405.786 1414.022 Amount Heparin Sod,Pork in 0.45% 28.406 6.687 NaCl 25,000 unit In 0.45 % NaCl 1 250ml.bag @ 8.45 UNITS/KG/HR 9.97 mls/hr IV .Q24H [facility] Rx#: [id number] Insulin Regular 100 unit 56.584 101.000 15.783 In Sodium Chloride 0.9% 100 ml @ Per Protocol IV .Q0M [facility] Rx#:[id number] Mvi, Adult No.4 with Vit 1034.3 K 10 ml Trace (Conc-1Ml/ Dose) 1 ml Sodium Acetate 20 meq Potassium Chloride 20 meq Calcium Chloride 0.33 gm In Amino Acid 5%-D15w 1,000 ml @ 80 mls/hr IV .BY DURATION [facility] Rx#:[id number] Norepinephrine 32 mg In 25.65 128.550 10.362 Sodium Chloride 0.9% 250 ml @ 0.1 MCG/KG/MIN 6 mls /hr IV .Q24H [facility] Rx#: [id number] Propofol 1,000 mg In 265.847 200 35.89 Empty Bag 1 bag @ Titrate IV .Q0M [facility] Rx#: [id number] Blood Product 310 Rc As-1 Unit 310 [id number] Other 60 30 Output: Urine 20 44 4 Stool 200 Estimated Blood Loss 3 Other: Voiding Method Indwelling Catheter Indwelling Catheter # Voids 0 0 0 ABP, PAP, CO, CI - Last Documented Arterial Blood Pressure 84/53 - Exam Intubated, sedated, comfortable likely distress. Morbidly obese. Cold extremities and addition to ischemic toes bilaterally. Intubated on a mechanical ventilator. Patient currently has a Dobbhoff and the patient has a a tracheostomy tube in place.. This morning, the patient is sedated. She'll be given a sedation holiday following completion of the hemodialysis. Head exam was generally normal. There was no scleral icterus or corneal arcus. Mucous membranes were moist. Neck was supple and without jugular venous distension, thyromegaly, or carotid bruits. Carotids were easily palpable bilaterally. There was no adenopathy. The patient has a right IJ triple lumen catheter/temporary dialysis catheter and exit site is clean. The patient also tracheostomy tube in place. The patient has a Bivona trach tube in place. Lungs were clear to auscultation and percussion, and with normal diaphragmatic excursion. No wheezes or rales were noted. Heart sounds are irregular, positive S1-S2, no cervical murmurs could be appreciated. Abdomen is obese soft nontender. Organs cannot be accurately palpated. There is no ascites. No direct or rebound tensile guarding at this point in time. Extremities are cold. Pulses are diminished in all 4 extremities and they're obtained only by Doppler. Necrotic digits in the feet bilaterally. No clubbing. There is edema +2 in all extremities. Skin cold and clammy and addition to necrotic skin changes in the toes of the lower extremity feet bilaterally. Neurologically the patient is sedated, pupils are equal and reactive to light. No facial asymmetry. Motor and sensory functions cannot be accurately obtained. The patient was given a sedation holiday yesterday and the patient would follow occasional simple commands upon demand while being off sedation. - Labs CBC & Chem 7: 11/26/18 05:50 11/26/18 05:50 Labs: Abnormal Lab Results - Last 24 Hours (Table) 11/25/18 11/25/18 11/25/18 Range/Units 16:13 17:33 17:33 WBC (3.8-10.6) k/uL RBC (3.80-5.40) m/uL Hgb (11.4-16.0) gm/dL Hct (34.0-46.0) % MCHC (31.0-37.0) g/dL RDW (11.5-15.5) % Plt Count (150-450) k/uL Neutrophils # (1.3-7.7) k/uL ABG pH 7.24 L (7.35-7.45) ABG pCO2 67 H (35-45) mmHg ABG pO2 34 L* (83-108) mmHg ABG HCO3 29 H (21-25) mmol/L ABG Total CO2 31 H (19-24) mmol/L ABG O2 Saturation 59.4 L (94-97) % Sodium (137-145) mmol/L BUN (7-17) mg/dL Creatinine (0.52-1.04) mg/dL Glucose (74-99) mg/dL POC Glucose (mg/dL) 165 H 166 H (75-99) mg/dL Calcium (8.4-10.2) mg/dL Phosphorus (2.5-4.5) mg/dL Crossmatch 11/25/18 11/25/18 11/25/18 Range/Units 18:49 21:14 22:11 WBC (3.8-10.6) k/uL RBC (3.80-5.40) m/uL Hgb (11.4-16.0) gm/dL Hct (34.0-46.0) % MCHC (31.0-37.0) g/dL RDW (11.5-15.5) % Plt Count (150-450) k/uL Neutrophils # (1.3-7.7) k/uL ABG pH (7.35-7.45) ABG pCO2 (35-45) mmHg ABG pO2 (83-108) mmHg ABG HCO3 (21-25) mmol/L ABG Total CO2 (19-24) mmol/L ABG O2 Saturation (94-97) % Sodium (137-145) mmol/L BUN (7-17) mg/dL Creatinine (0.52-1.04) mg/dL Glucose (74-99) mg/dL POC Glucose (mg/dL) 191 H 176 H 168 H (75-99) mg/dL Calcium (8.4-10.2) mg/dL Phosphorus (2.5-4.5) mg/dL Crossmatch 11/25/18 11/25/18 11/26/18 Range/Units 23:10 23:58 00:52 WBC (3.8-10.6) k/uL RBC (3.80-5.40) m/uL Hgb (11.4-16.0) gm/dL Hct (34.0-46.0) % MCHC (31.0-37.0) g/dL RDW (11.5-15.5) % Plt Count (150-450) k/uL Neutrophils # (1.3-7.7) k/uL ABG pH (7.35-7.45) ABG pCO2 (35-45) mmHg ABG pO2 (83-108) mmHg ABG HCO3 (21-25) mmol/L ABG Total CO2 (19-24) mmol/L ABG O2 Saturation (94-97) % Sodium (137-145) mmol/L BUN (7-17) mg/dL Creatinine (0.52-1.04) mg/dL Glucose (74-99) mg/dL POC Glucose (mg/dL) 180 H 155 H 147 H (75-99) mg/dL Calcium (8.4-10.2) mg/dL Phosphorus (2.5-4.5) mg/dL Crossmatch 11/26/18 11/26/18 11/26/18 Range/Units 01:58 04:20 04:50 WBC (3.8-10.6) k/uL RBC (3.80-5.40) m/uL Hgb (11.4-16.0) gm/dL Hct (34.0-46.0) % MCHC (31.0-37.0) g/dL RDW (11.5-15.5) % Plt Count (150-450) k/uL Neutrophils # (1.3-7.7) k/uL ABG pH (7.35-7.45) ABG pCO2 (35-45) mmHg ABG pO2 136 H (83-108) mmHg ABG HCO3 (21-25) mmol/L ABG Total CO2 26 H (19-24) mmol/L ABG O2 Saturation 99.8 H (94-97) % Sodium (137-145) mmol/L BUN (7-17) mg/dL Creatinine (0.52-1.04) mg/dL Glucose (74-99) mg/dL POC Glucose (mg/dL) 159 H 151 H (75-99) mg/dL Calcium (8.4-10.2) mg/dL Phosphorus (2.5-4.5) mg/dL Crossmatch 11/26/18 11/26/18 11/26/18 Range/Units 05:50 05:50 06:34 WBC 14.1 H (3.8-10.6) k/uL RBC 2.27 L (3.80-5.40) m/uL Hgb 6.8 L* (11.4-16.0) gm/dL Hct 22.4 L (34.0-46.0) % MCHC 30.4 L (31.0-37.0) g/dL RDW 20.5 H (11.5-15.5) % Plt Count 105 L (150-450) k/uL Neutrophils # 11.4 H (1.3-7.7) k/uL ABG pH (7.35-7.45) ABG pCO2 (35-45) mmHg ABG pO2 (83-108) mmHg ABG HCO3 (21-25) mmol/L ABG Total CO2 (19-24) mmol/L ABG O2 Saturation (94-97) % Sodium 130 L (137-145) mmol/L BUN 61 H (7-17) mg/dL Creatinine 3.29 H (0.52-1.04) mg/dL Glucose 137 H (74-99) mg/dL POC Glucose (mg/dL) 150 H (75-99) mg/dL Calcium 7.7 L (8.4-10.2) mg/dL Phosphorus 2.4 L (2.5-4.5) mg/dL Crossmatch 11/26/18 11/26/18 11/26/18 Range/Units 07:01 08:09 09:04 WBC (3.8-10.6) k/uL RBC (3.80-5.40) m/uL Hgb (11.4-16.0) gm/dL Hct (34.0-46.0) % MCHC (31.0-37.0) g/dL RDW (11.5-15.5) % Plt Count (150-450) k/uL Neutrophils # (1.3-7.7) k/uL ABG pH (7.35-7.45) ABG pCO2 (35-45) mmHg ABG pO2 (83-108) mmHg ABG HCO3 (21-25) mmol/L ABG Total CO2 (19-24) mmol/L ABG O2 Saturation (94-97) % Sodium (137-145) mmol/L BUN (7-17) mg/dL Creatinine (0.52-1.04) mg/dL Glucose (74-99) mg/dL POC Glucose (mg/dL) 160 H 158 H 158 H (75-99) mg/dL Calcium (8.4-10.2) mg/dL Phosphorus (2.5-4.5) mg/dL Crossmatch 11/26/18 11/26/18 11/26/18 Range/Units 09:20 10:05 11:00 WBC (3.8-10.6) k/uL RBC (3.80-5.40) m/uL Hgb (11.4-16.0) gm/dL Hct (34.0-46.0) % MCHC (31.0-37.0) g/dL RDW (11.5-15.5) % Plt Count (150-450) k/uL Neutrophils # (1.3-7.7) k/uL ABG pH (7.35-7.45) ABG pCO2 (35-45) mmHg ABG pO2 (83-108) mmHg ABG HCO3 (21-25) mmol/L ABG Total CO2 (19-24) mmol/L ABG O2 Saturation (94-97) % Sodium (137-145) mmol/L BUN (7-17) mg/dL Creatinine (0.52-1.04) mg/dL Glucose (74-99) mg/dL POC Glucose (mg/dL) 140 H 134 H (75-99) mg/dL Calcium (8.4-10.2) mg/dL Phosphorus (2.5-4.5) mg/dL Crossmatch See Detail 11/26/18 11/26/18 11/26/18 Range/Units 11:59 12:53 14:06 WBC (3.8-10.6) k/uL RBC (3.80-5.40) m/uL Hgb (11.4-16.0) gm/dL Hct (34.0-46.0) % MCHC (31.0-37.0) g/dL RDW (11.5-15.5) % Plt Count (150-450) k/uL Neutrophils # (1.3-7.7) k/uL ABG pH (7.35-7.45) ABG pCO2 (35-45) mmHg ABG pO2 (83-108) mmHg ABG HCO3 (21-25) mmol/L ABG Total CO2 (19-24) mmol/L ABG O2 Saturation (94-97) % Sodium (137-145) mmol/L BUN (7-17) mg/dL Creatinine (0.52-1.04) mg/dL Glucose (74-99) mg/dL POC Glucose (mg/dL) 133 H 137 H 171 H (75-99) mg/dL Calcium (8.4-10.2) mg/dL Phosphorus (2.5-4.5) mg/dL Crossmatch Microbiology - Last 24 Hours (Table) 11/21/18 10:20 Blood Culture - Preliminary Blood No Growth after 120 hours Assessment and Plan Plan: Assessment 1 acute hypoxic respiratory failure, currently the patient is trached and the patient has a Bivona tracheostomy tube in place. She remains on the same vent setting. Chest x-ray findings are stable. Oxygenation is adequate for now. 2 altered mental status recovered as the patient was taken off sedation. She is awake and alert and she is following commands appropriately. 4 anemia, multifactorial, including possibility of an earlier GI bleed. Current hemoglobin is down 6.8 and the patient will be receiving a unit of packed RBC. She is on IV heparin. EGD has been done and the results of been noted. 5 suspected ischemic colitis with secondary GI bleeding, lactic acid level was nonelevated 6 acute on chronic renal failure and the patient is anuric currently on hemodialysis via a temper dialysis catheter in the right IJ. The patient is undergoing daily dialysis with ultrafiltration 7 DVT of the right lower extremity currently on IV heparin 8 coronary artery disease with previous bypass surgery in 2008, the patient also developed an acute non-ST segment elevation myocardial infarction with a peak troponin of 7. EKG is not showing any ST segment elevations or depressions. Cardiology is on the case. 9 severe peripheral vascular disease with previous best of bypass surgery to the lower extremities bilaterally 10 ischemic/necrotic toes and fingers , secondary to hypoperfusion in addition to an underlying severe peripheral vascular disease, currently inactive in stable 11 small bilateral pleural effusion right more than left, improved and stable on today's chest x-ray 12 acute non-ST segment elevation myocardial infarction the troponin is up to 7 13 chronic atrial fibrillation with episodes of rapid ventricular response currently well-controlled 14 volume overload and the patient is having daily dialysis and ultrafiltration 15 systolic heart failure with ejection fraction of 30-35% and severe pulmonary hypertension moderate degree of tricuspid regurgitation 16 chronic stage IV kidney disease secondary to diabetic kidney disease and nephrosclerosis, currently on hemodialysis 17 diabetes mellitus, currently on insulin drip 18 poor baseline performance and functional status secondary to above-mentioned comorbidities Plan Continue the supportive care. Continue vent support. Restart IV heparin. Consider a low-dose enteral feeding for nutritional support and assess the patient's ability to tolerate this without any GI bleed. Proceed with daily dialysis ultrafiltration. TPN for nutritional support. Pressors Should be able to wean off. We will follow. Prognosis poor. Condition is critical. The has been updated on her condition. Evaluation was in a more than 30 minutes. Time with Patient: Greater than 30
--- NOTE | 2018-11-26 16:26 | PCN ---
PROCEDURE NOTE PREOP DIAGNOSIS: Acute on chronic failure. PROCEDURE PERFORMED: 1. Placement of femoral artery line. 2. Placement of a triple-lumen dialysis catheter right femoral approach. Ultrasound- guided. DESCRIPTION OF PROCEDURE: This patient was seen in the Intensive Care Unit. The patient has a right IJ cath catheter for dialysis which has been occluded. Right groin was prepped and drapes applied in the usual sterile manner. 1% lidocaine infiltrated. Ultrasound-guided micropuncture needle into the right femoral artery. Micropuncture guidewire was passed and 4-Faroese sheath was advanced on the top of the guidewire and secured with 3-0 nylon and the patient was hooked to the arterial line and then micropuncture introduced into the left femoral vein and micropuncture guidewire was passed. After that 4-Faroese dilator advanced on top of the guidewire. Then we passed a regular guidewire. After that, we placed a triple-lumen dialysis catheter on top of the guidewire, flushed with heparin saline and hep-locked and secured with 3-0 nylon. Patient tolerated the procedure well. MMODL / IJN: [id number] /
[2018-11-26 17:20] LABS: Glucose,Whole Blood 206 mg/dL (75-99)
--- NOTE | 2018-11-26 17:59 | PN ---
PROGRESS NOTE DATE OF SERVICE: 11/26/2018 REASON FOR FOLLOWUP: Aspiration pneumonia. INTERVAL HISTORY: The patient is currently afebrile. The patient is still requiring some pressor support. The patient seems to have and slightly upset on her tracheostomy. No nausea, vomiting or any diarrhea reported. PHYSICAL EXAMINATION: Blood pressure 104/49 with a pulse of 78, temperature 98. She is 99% on 40% FiO2. General description is a middle-aged female lying in bed in no distress. RESPIRATORY SYSTEM: Unlabored breathing. Clear to auscultation anteriorly. HEART: S1, S2. Regular rate and rhythm. ABDOMEN: Soft. Mildly distended. No guarding or rigidity. LABS: Hemoglobin 6.8, white count 14.1. BUN of 61, creatinine 3.29. DIAGNOSTIC IMPRESSION AND PLAN: Patient with acute respiratory failure which is likely multifactorial, possibly a component of aspiration pneumonia. Sputum has been E coli. Patient currently covered with cefepime and Flagyl, to continue for now while waiting for her condition to stabilize. Continue with supportive care. MMODL / IJN: [id number] /
[2018-11-26 18:13] LABS: Glucose,Whole Blood 190 mg/dL (75-99)
[2018-11-26 19:13] LABS: Glucose,Whole Blood 214 mg/dL (75-99)
[2018-11-26 20:36] LABS: Glucose,Whole Blood 178 mg/dL (75-99)
[2018-11-26 21:25] LABS: Glucose,Whole Blood 205 mg/dL (75-99)
[2018-11-26] MEDS: 1: MVI, ADULT NO.4 WITH VIT K 10 ML, TRACE (CONC-1ML/DOSE) 1 ML in AMINO ACID 5%-D15W+LY IV SCH ×3 (22:24)
[2018-11-26 22:38] LABS: Glucose,Whole Blood 168 mg/dL (75-99)
[2018-11-26 23:22] LABS: Glucose,Whole Blood 191 mg/dL (75-99)
[2018-11-27] MEDS: metroNIDAZOLE-NS PMX 500 MG in SALINE 1 100ML.BAG IVPB SCH ×4 (00:09→22:59)
[2018-11-27 00:14] LABS: Glucose,Whole Blood 192 mg/dL (75-99)
[2018-11-27 01:26] LABS: Glucose,Whole Blood 202 mg/dL (75-99)
[2018-11-27] MEDS: SODIUM CHLORIDE 0.9% 1,000 ML IV SCH (01:47)
[2018-11-27 02:31] LABS: Glucose,Whole Blood 203 mg/dL (75-99)
[2018-11-27 03:07] LABS: Glucose,Whole Blood 224 mg/dL (75-99)
[2018-11-27 04:10] LABS: Glucose,Whole Blood 186 mg/dL (75-99)
[2018-11-27 04:24] LABS: Anisocytosis Slight; Basophils % (A) 0 %; Eosinophils # (A) 0.1 k/uL (0-0.7); Eosinophils % (A) 0 %; HCT 22.5 % (34.0-46.0); HGB 7.1 gm/dL (11.4-16.0); Hypochromasia Marked; Lymphocytes # (A) 0.9 k/uL (1.0-4.8); Lymphocytes % (A) 8 %; MCH 31.3 pg (25.0-35.0); MCHC 31.6 g/dL (31.0-37.0); MCV 98.9 fL (80.0-100.0); Macrocytosis Moderate; Mean Platelet Volume 9.2; Monocytes # (A) 0.5 k/uL (0-1.0); Monocytes % (A) 5 %; Neutrophils # (A) 9.7 k/uL (1.3-7.7); Neutrophils % (A) 85 %; Poikilocytosis Moderate; RBC 2.28 m/uL (3.80-5.40); RDW 19.4 % (11.5-15.5); WBC 11.4 k/uL (3.8-10.6)
[2018-11-27 04:50] LABS: Platelet Count 68 k/uL (150-450)
[2018-11-27 04:57] LABS: Ionized Calcium 4.8 mg/dL (4.5-5.3)
[2018-11-27 05:27] LABS: Glucose,Whole Blood 189 mg/dL (75-99)
[2018-11-27 05:30] LABS: ABG Base Excess -4.4 mmol/L; ABG HCO3 22 mmol/L (21-25); ABG Oxygen Saturation 99.9 % (94-97); ABG PCO2 47 mmHg (35-45); ABG PH 7.29 (7.35-7.45); ABG PO2 156 mmHg (83-108); ABG TCO2 24 mmol/L (19-24)
[2018-11-27 05:41] LABS: Calcium 7.7 mg/dL (8.4-10.2); Magnesium 1.9 mg/dL (1.6-2.3)
[2018-11-27 06:32] LABS: Glucose,Whole Blood 189 mg/dL (75-99)
[2018-11-27] MEDS ORDERED: MAGNESIUM SULFATE-D5W PMX 1 GM in DEXTROSE/WATER 1 100ML.BAG IVPB SCH (07:00)
[2018-11-27 07:24] LABS: Glucose,Whole Blood 206 mg/dL (75-99)
[2018-11-27 08:26] LABS: Glucose,Whole Blood 197 mg/dL (75-99)
[2018-11-27] MEDS: INSULIN REGULAR 100 UNIT in SODIUM CHLORIDE 0.9% 100 ML IV SCH ×2 (08:58→19:59)
[2018-11-27] MEDS: ATORVASTATIN 40 MG TAB PO SCH (09:18)
[2018-11-27] MEDS: CHLORHEXIDINE GLUCONATE 15 ML CUP MUCOUS MEM SCH ×2 (09:18→21:43)
[2018-11-27] MEDS: CEFEPIME 1 GM in SODIUM CHLORIDE 0.9% 50 ML IVPB SCH (09:18)
[2018-11-27] MEDS: METOPROLOL TARTRATE 25 MG TAB PO SCH ×2 (09:18→21:43)
[2018-11-27] MEDS: AMIODARONE 200 MG TAB PO SCH ×2 (09:18→21:43)
[2018-11-27] MEDS: ALPRAZolam 0.5 MG TAB PO PRN ×3 (09:19→22:59)
[2018-11-27] MEDS: HEPARIN SOD,PORK IN 0.45% NACL 25,000 UNIT in 0.45% NACL 1 250ML.BAG IV SCH (09:20)
--- NOTE | 2018-11-27 09:28 | XR ---
EXAMINATION TYPE: XR chest 1V portable DATE OF EXAM: 11/27/2018 COMPARISON: 11/26/2018 INDICATION: Tube placement TECHNIQUE: Single frontal view of the chest is obtained. FINDINGS: The heart size is mildly prominent. The pulmonary vasculature is normal. Mild bibasilar infiltrates are resolving. Tracheostomy tube is in the midline. Nasogastric tube transverses the thorax. Right central venous ca theter is present with the tip in the superior vena cava region. IMPRESSION: 1. Resolving mild bibasilar joint. Continued follow-up is recommended.
[2018-11-27] MEDS: ALBUTEROL NEBULIZED 2.5 MG/3 ML INHALATION PRN ×3 (09:36→16:18)
[2018-11-27] MEDS: PANTOPRAZOLE 40 MG/10 ML VIAL IVP SCH ×2 (09:56→21:44)
--- NOTE | 2018-11-27 09:59 | P.PN ---
Subjective Patient is seen in follow-up for acute kidney injury on chronic kidney disease. Patient has chronic kidney disease stage IV with baseline creatinine near 3 secondary to diabetic kidney disease. Due to worsening renal function and oliguria, she was started on hemodialysis on November 07. Right IJ catheter is malfunctioning and she had a right groin catheter placed November 25. She remains intubated. Currently off Levophed. Remains oliguric. No active bleeding. Hemoglobin 7.1 today. Tolerated hemodialysis well yesterday with near 2 L ultrafiltration. Vital signs stable. General: The patient appeared well nourished and normally developed. HEENT: Head exam is unremarkable. Neck is without jugular venous distension. Intubated. LUNGS: Breath sounds decreased. HEART: Rate and Rhythm are regular. First and second heart sounds normal. No murmurs, rubs or gallops. ABDOMEN: Abdominal exam reveals normal bowel sounds. Non-tender and non- distended. No evidence of peritonitis. EXTREMITITES: 1+ edema. Objective - Vital Signs Vital signs: Vital Signs Temp 97.5 F L 11/27/18 08:00 Pulse 80 11/27/18 09:46 Resp 16 11/27/18 09:30 BP 103/53 11/27/18 09:30 Pulse Ox 100 11/27/18 09:30 Intake & Output 11/26/18 11/27/18 11/27/18 18:59 06:59 18:59 Intake Total 3379.142 1635.412 564.392 Output Total 12 37 5 Balance 3367.142 1598.412 559.392 Weight 131 kg Intake: IV 1880 1155 435 Cefepime 1 gm In Sodium 100 50 Chloride 0.9% 50 ml @ 100 mls/hr IVPB Q24HR [facility] Rx #:[id number] Magnesium Sulfate-D5w Pmx 200 1 gm In Dextrose/Water 1 100ml.bag @ 100 mls/hr IVPB Q1H [facility] Rx#: [id number] Mvi, Adult No.4 with Vit 960 880 240 K 10 ml Trace (Conc-1Ml/ Dose) 1 ml Sodium Acetate 20 meq Potassium Chloride 20 meq Calcium Chloride 0.33 gm In Amino Acid 5%-D15w 1,000 ml @ 80 mls/hr IV .BY DURATION [facility] Rx#:[id number] Mvi, Adult No.4 with Vit 80 K 10 ml Trace (Conc-1Ml/ Dose) 1 ml Sodium Acetate 20 meq Potassium Chloride 20 meq Calcium Chloride 330 mg In Amino Acid 5%-D15w 1,000 ml @ 80 mls/hr IV .BY DURATION [facility] Rx#:[id number] Potassium Phosphate 10 100 mmol In Sodium Chloride 0 .9% 100 ml @ 50 mls/hr IV ONCE ONE Rx#:[id number] Sodium Chloride 0.9% 1, 240 175 45 000 ml @ 10 mls/hr IV . Q24H [facility] Rx#:[id number] metroNIDAZOLE-NS PMX 500 200 100 100 mg In Saline 1 100ml.bag @ 100 mls/hr IVPB Q8HR [facility] Rx#:[id number] Intake, IV Titration 1159.142 310.412 99.392 Amount Heparin Sod,Pork in 0.45% 6.687 180.973 60.534 NaCl 25,000 unit In 0.45 % NaCl 1 250ml.bag @ 8.45 UNITS/KG/HR 9.97 mls/hr IV .Q24H [facility] Rx#: [id number] Insulin Regular 100 unit 54.383 108.759 38.858 In Sodium Chloride 0.9% 100 ml @ Per Protocol IV .Q0M [facility] Rx#:[id number] Mvi, Adult No.4 with Vit 1034.3 K 10 ml Trace (Conc-1Ml/ Dose) 1 ml Sodium Acetate 20 meq Potassium Chloride 20 meq Calcium Chloride 0.33 gm In Amino Acid 5%-D15w 1,000 ml @ 80 mls/hr IV .BY DURATION [facility] Rx#:[id number] Norepinephrine 32 mg In 27.882 20.68 Sodium Chloride 0.9% 250 ml @ 0.1 MCG/KG/MIN 6 mls /hr IV .Q24H [facility] Rx#: [id number] Propofol 1,000 mg In 35.89 Empty Bag 1 bag @ Titrate IV .Q0M [facility] Rx#: [id number] Tube Feeding 110 30 Blood Product 310 Rc As-1 Unit 310 [id number] Other 30 60 Output: Urine 12 37 5 Other: Voiding Method Indwelling Catheter Indwelling Catheter # Voids 0 # Bowel Movements 1 1 ABP, PAP, CO, CI - Last Documented Arterial Blood Pressure 85/44 - Labs CBC & Chem 7: 11/27/18 04:00 11/27/18 04:00 Labs: Abnormal Lab Results - Last 24 Hours (Table) 11/26/18 11/26/18 11/26/18 Range/Units 09:20 10:05 11:00 WBC (3.8-10.6) k/uL RBC (3.80-5.40) m/uL Hgb (11.4-16.0) gm/dL Hct (34.0-46.0) % RDW (11.5-15.5) % Plt Count (150-450) k/uL Neutrophils # (1.3-7.7) k/uL Lymphocytes # (1.0-4.8) k/uL APTT (22.0-30.0) sec ABG pH (7.35-7.45) ABG pCO2 (35-45) mmHg ABG pO2 (83-108) mmHg ABG O2 Saturation (94-97) % Sodium (137-145) mmol/L BUN (7-17) mg/dL Creatinine (0.52-1.04) mg/dL Glucose (74-99) mg/dL POC Glucose (mg/dL) 140 H 134 H (75-99) mg/dL Calcium (8.4-10.2) mg/dL Crossmatch See Detail 11/26/18 11/26/18 11/26/18 Range/Units 11:59 12:53 14:06 WBC (3.8-10.6) k/uL RBC (3.80-5.40) m/uL Hgb (11.4-16.0) gm/dL Hct (34.0-46.0) % RDW (11.5-15.5) % Plt Count (150-450) k/uL Neutrophils # (1.3-7.7) k/uL Lymphocytes # (1.0-4.8) k/uL APTT (22.0-30.0) sec ABG pH (7.35-7.45) ABG pCO2 (35-45) mmHg ABG pO2 (83-108) mmHg ABG O2 Saturation (94-97) % Sodium (137-145) mmol/L BUN (7-17) mg/dL Creatinine (0.52-1.04) mg/dL Glucose (74-99) mg/dL POC Glucose (mg/dL) 133 H 137 H 171 H (75-99) mg/dL Calcium (8.4-10.2) mg/dL Crossmatch 11/26/18 11/26/18 11/26/18 Range/Units 17:08 18:00 18:02 WBC (3.8-10.6) k/uL RBC (3.80-5.40) m/uL Hgb (11.4-16.0) gm/dL Hct (34.0-46.0) % RDW (11.5-15.5) % Plt Count (150-450) k/uL Neutrophils # (1.3-7.7) k/uL Lymphocytes # (1.0-4.8) k/uL APTT 45.6 H (22.0-30.0) sec ABG pH (7.35-7.45) ABG pCO2 (35-45) mmHg ABG pO2 (83-108) mmHg ABG O2 Saturation (94-97) % Sodium (137-145) mmol/L BUN (7-17) mg/dL Creatinine (0.52-1.04) mg/dL Glucose (74-99) mg/dL POC Glucose (mg/dL) 206 H 190 H (75-99) mg/dL Calcium (8.4-10.2) mg/dL Crossmatch 11/26/18 11/26/18 11/26/18 Range/Units 19:02 20:25 21:13 WBC (3.8-10.6) k/uL RBC (3.80-5.40) m/uL Hgb (11.4-16.0) gm/dL Hct (34.0-46.0) % RDW (11.5-15.5) % Plt Count (150-450) k/uL Neutrophils # (1.3-7.7) k/uL Lymphocytes # (1.0-4.8) k/uL APTT (22.0-30.0) sec ABG pH (7.35-7.45) ABG pCO2 (35-45) mmHg ABG pO2 (83-108) mmHg ABG O2 Saturation (94-97) % Sodium (137-145) mmol/L BUN (7-17) mg/dL Creatinine (0.52-1.04) mg/dL Glucose (74-99) mg/dL POC Glucose (mg/dL) 214 H 178 H 205 H (75-99) mg/dL Calcium (8.4-10.2) mg/dL Crossmatch 11/26/18 11/26/18 11/27/18 Range/Units 22:26 23:10 00:03 WBC (3.8-10.6) k/uL RBC (3.80-5.40) m/uL Hgb (11.4-16.0) gm/dL Hct (34.0-46.0) % RDW (11.5-15.5) % Plt Count (150-450) k/uL Neutrophils # (1.3-7.7) k/uL Lymphocytes # (1.0-4.8) k/uL APTT (22.0-30.0) sec ABG pH (7.35-7.45) ABG pCO2 (35-45) mmHg ABG pO2 (83-108) mmHg ABG O2 Saturation (94-97) % Sodium (137-145) mmol/L BUN (7-17) mg/dL Creatinine (0.52-1.04) mg/dL Glucose (74-99) mg/dL POC Glucose (mg/dL) 168 H 191 H 192 H (75-99) mg/dL Calcium (8.4-10.2) mg/dL Crossmatch 11/27/18 11/27/18 11/27/18 Range/Units 01:14 01:15 02:20 WBC (3.8-10.6) k/uL RBC (3.80-5.40) m/uL Hgb (11.4-16.0) gm/dL Hct (34.0-46.0) % RDW (11.5-15.5) % Plt Count (150-450) k/uL Neutrophils # (1.3-7.7) k/uL Lymphocytes # (1.0-4.8) k/uL APTT 139.7 H* (22.0-30.0) sec ABG pH (7.35-7.45) ABG pCO2 (35-45) mmHg ABG pO2 (83-108) mmHg ABG O2 Saturation (94-97) % Sodium (137-145) mmol/L BUN (7-17) mg/dL Creatinine (0.52-1.04) mg/dL Glucose (74-99) mg/dL POC Glucose (mg/dL) 202 H 203 H (75-99) mg/dL Calcium (8.4-10.2) mg/dL Crossmatch 11/27/18 11/27/18 11/27/18 Range/Units 02:56 03:58 04:00 WBC (3.8-10.6) k/uL RBC (3.80-5.40) m/uL Hgb (11.4-16.0) gm/dL Hct (34.0-46.0) % RDW (11.5-15.5) % Plt Count (150-450) k/uL Neutrophils # (1.3-7.7) k/uL Lymphocytes # (1.0-4.8) k/uL APTT (22.0-30.0) sec ABG pH (7.35-7.45) ABG pCO2 (35-45) mmHg ABG pO2 (83-108) mmHg ABG O2 Saturation (94-97) % Sodium 130 L (137-145) mmol/L BUN 54 H (7-17) mg/dL Creatinine 3.02 H (0.52-1.04) mg/dL Glucose 187 H (74-99) mg/dL POC Glucose (mg/dL) 224 H 186 H (75-99) mg/dL Calcium 7.7 L (8.4-10.2) mg/dL Crossmatch 11/27/18 11/27/18 11/27/18 Range/Units 04:00 05:16 05:26 WBC 11.4 H (3.8-10.6) k/uL RBC 2.28 L (3.80-5.40) m/uL Hgb 7.1 L (11.4-16.0) gm/dL Hct 22.5 L (34.0-46.0) % RDW 19.4 H (11.5-15.5) % Plt Count 68 L (150-450) k/uL Neutrophils # 9.7 H (1.3-7.7) k/uL Lymphocytes # 0.9 L (1.0-4.8) k/uL APTT (22.0-30.0) sec ABG pH 7.29 L (7.35-7.45) ABG pCO2 47 H (35-45) mmHg ABG pO2 156 H (83-108) mmHg ABG O2 Saturation 99.9 H (94-97) % Sodium (137-145) mmol/L BUN (7-17) mg/dL Creatinine (0.52-1.04) mg/dL Glucose (74-99) mg/dL POC Glucose (mg/dL) 189 H (75-99) mg/dL Calcium (8.4-10.2) mg/dL Crossmatch 11/27/18 11/27/18 11/27/18 Range/Units 06:20 07:12 08:14 WBC (3.8-10.6) k/uL RBC (3.80-5.40) m/uL Hgb (11.4-16.0) gm/dL Hct (34.0-46.0) % RDW (11.5-15.5) % Plt Count (150-450) k/uL Neutrophils # (1.3-7.7) k/uL Lymphocytes # (1.0-4.8) k/uL APTT (22.0-30.0) sec ABG pH (7.35-7.45) ABG pCO2 (35-45) mmHg ABG pO2 (83-108) mmHg ABG O2 Saturation (94-97) % Sodium (137-145) mmol/L BUN (7-17) mg/dL Creatinine (0.52-1.04) mg/dL Glucose (74-99) mg/dL POC Glucose (mg/dL) 189 H 206 H 197 H (75-99) mg/dL Calcium (8.4-10.2) mg/dL Crossmatch Microbiology - Last 24 Hours (Table) 11/21/18 10:20 Blood Culture - Preliminary Blood No Growth after 120 hours Assessment and Plan Plan: Assessment: 1. Acute kidney injury secondary to ATN secondary to hypotension. Creatinine peaked at 5.85 and November 07 and was also oliguric. Currently hemodialysis dependent. No hydronephrosis noted on renal ultrasound. 2. Chronic kidney disease stage IV secondary to diabetic kidney disease and nephrosclerosis with baseline creatinine near 3 according to the patient. Patient follows with a personal fitness manager out of [place]. 3. Systolic CHF with ejection fraction of 30-35% with severe pulmonary hypertension and moderate tricuspid regurgitation. 4. Volume overload. 5. Hyponatremia secondary to acute kidney injury. She is hypervolemic. 6. Hyperkalemia secondary to acute kidney injury. Improved with dialysis. 7. Diabetes mellitus. 8. Hypotension, currently off Levophed. 9. Hyperphosphatemia secondary to acute kidney injury. Maintained on PhosLo. Phosphorus 3 today. 10. Acute blood loss anemia secondary to GI bleed. Status post blood transfusion and IV DDAVP on November 10. Status post EGD on November 10 which revealed ischemic areas in the antrum. Status post blood transfusion yesterday. 11. NSTEMI. Cardiology following. 12. A. fib with RVR status post amiodarone drip. Now rate controlled. 13. Hypocalcemia secondary to acute kidney injury. Better. 14. Status post tracheostomy. Plan: Hemodialysis tomorrow. Continue to monitor renal function and urine output. Discontinued PhosLo. Monitor hemoglobin and transfuse as needed. According to the nurse she's been having black stools. She is on low dose of tube feeds at this time. Will try to wean TPN to reduce the amount of fluids given.
[2018-11-27 10:32] LABS: Glucose,Whole Blood 216 mg/dL (75-99)
--- NOTE | 2018-11-27 10:49 | P.PN ---
Progress Note - Text Progress Note Date: 11/27/18 The patient has had continuous melanotic stools. Her hemoglobin has drifted down from 8.5 to the low 7 range. On exam her vital signs appear stable. Her abdomen soft. Patient will undergo EGD in the a.m.
--- NOTE | 2018-11-27 11:06 | PN ---
PROGRESS NOTE Mrs. Monhaan is a 58-year-old female history cough end-stage renal disease, on hemodialysis, history of coronary disease with coronary artery bypass grafting, history of peripheral disease, ischemic cardiomyopathy, who was admitted with progressive abdominal pain and respiratory failure. She remains intubated. She has tracheostomy and a Dobbhoff tube. She has had DVT. She continues to be on IV heparin. She is in atrial fibrillation with controlled ventricular response. There is no evidence of malignant arrhythmia. She continues to be on amiodarone 200 mg twice a day in addition to metoprolol tartrate 25 mg twice a day and the IV heparin. PHYSICAL EXAMINATION: Blood pressure 103/50 with a heart rate in the 70s. LUNGS: Clear anteriorly. Heart irregular regular, S1, S2. No S3 with a systolic murmur. ABDOMEN: Soft, obese. EXTREMITIES: +2 edema bilaterally with discoloration of the toes and the fingers noted. LAB DATA: Lab data revealed a hemoglobin of 7.1, white blood cell of 11.4, BUN and creatinine 54 and 3.02. IMPRESSION: 1. Respiratory failure, multifactorial. 2. History of coronary artery disease status post coronary artery bypass grafting. 3. Non ST-segment elevation myocardial infarction. 4. Severe cardiomyopathy. 5. End-stage renal disease. 6. Possible ischemic colitis. 7. Anemia. 8. Severe peripheral vascular disease. 9. Persistent atrial fibrillation. RECOMMENDATION: From the cardiac standpoint, we will continue supportive care. The patient is not ready to be weaned. Decision will need to be made regarding switching to oral anticoagulant. She continues to be on antibiotics at present. Depending on her progress, further recommendations will be made. MMODL / IJN: [id number] /
--- NOTE | 2018-11-27 11:14 | US ---
EXAMINATION TYPE: US venous doppler duplex LE RT DATE OF EXAM: 11/27/2018 10:37 AM COMPARISON: 11/05/2018 CLINICAL HISTORY: evaluate DVT. History of DVT right leg SIDE PERFORMED: Right TECHNIQUE: The lower extremity deep venous system is examined utilizing real time linear array sonog jim with graded compression, doppler sonography and color-flow sonography. VESSELS IMAGED: External Iliac Vein (EIV) Common Femoral Vein Deep Femoral Vein Greater Saphenous Vein * Femoral Vein Popliteal Vein Small Saphenous Vein * Proximal Calf Veins (* superficial vessels) Right Leg: Extreme technical limitations due to patient's body habitus and hard, edematous skin - unable to penetrate. Unable to visualize EIV and portions of femoral vein. CFV and femoral vein lower appear to have flow. Appears positive for DVT right popliteal vein with partial compression and flow . IMPRESSION: 1. Right lower hemipelvis ultrasound positive for deep venous thrombosis. Continued right proximal po pliteal artery thrombosis with partial diminished flow on color-flow sonography. 2. Exam is very limited given the patient's edema and body habitus. 3. Superficial soft tissue edema is evident.
[2018-11-27 11:59] LABS: Glucose,Whole Blood 161 mg/dL (75-99)
[2018-11-27] MEDS: NOREPINEPHRINE 32 MG in SODIUM CHLORIDE 0.9% 250 ML IV SCH (12:09)
[2018-11-27] MEDS: 1: MVI, ADULT NO.4 WITH VIT K 10 ML, TRACE (CONC-1ML/DOSE) 1 ML in AMINO ACID 5%-D15W+LY IV SCH ×6 (12:09→12:10)
--- NOTE | 2018-11-27 12:09 | P.PN ---
Subjective Progress Note Date: 11/27/18 11/21/18- patient is being seen examined and evaluated today on rounds while covering for Dr. Bandar Paul. This patient is admitted to the hospital with altered mental status likely related to the acute renal failure, hypotension, severe sepsis, hypertension, A. fib with RVR, right lower extremity venous thrombosis, chronic intermittent thromboembolism, pulmonary hypertension, biventricular failure, acute on chronic systolic heart failure, acute on chronic renal failure stage IV, small bilateral pleural effusions, morbid obesity. The patient is on propofol currently on hold to assess mentation. And has been on a heparin drip, levophed, and insulin drip as well. The patient was extubated yesterday and did require reintubation overnight. She is on mechanical ventilation assist control mode with a respiratory rate of 20, tidal volume of 500, FiO2 100% and a PEEP of 5. Hemodialysis is currently on hold per nursing staff.. [employer] Lecturer is following this patient closely as well. Hemoglobin is down to 6.4 today. Troponin is elevated at 7.810 cardiology is following the patient closely. All labs and reports have been reviewed. Prognosis is guarded. 11/22/18- patient is being seen examined and evaluated today while covering for Dr. Bandar Paul. She still remains critically ill and in shock. She was unable to go for dialysis yesterday as she was not stable enough. She continues to receive her fluid she also received 2 units of packed red blood cells and her hemoglobin has improved to 8 today. She still continues to require vasopressors at 2 mics. She is noted to have dark blue digits and toes which are cold to the touch however Doppler pulses are able to be obtained. She has a very poor prognosis. TPN may potentially be started per her metal dresser. 11/23/18- patient is being seen examined and evaluated today while covering for Dr. Bandar Paul. She continues to be critically ill, and on mechanical ventilation. Chest x-ray from this morning is unchanged from previous day. Patient was started on TPN. Digits and toes continue to have blue/purple appearance and cold and clammy to the touch with some possible necrotic changes which is continuing to be monitored. She continues on IV heparin, Levophed, propofol, and insulin drips. 11/24/18- patient is being seen examined and evaluated today while covering for Dr. Bandar Paul. The patient continues in the intensive care unit and is critical. Currently she is on spontaneous breathing trials. Her sedation has been weaned off. She is able to follow somewhat simple commands. She still has required Levophed for blood pressure support. Urine output has been ill. She did have dialysis yesterday and is supposed to have dialysis again today. She continues to receive TPN for nutrition., Insulin drip for blood sugar control. Continues with digits and toes being blue/purple appearance and cold and clammy to the touch, pulses obtainable by Doppler only. All labs and reports reviewed. 11/25/18- patient is being seen examined and evaluated today on rounds with covering for Dr. Bandar Paul. The patient is scheduled to go for a tracheostomy placement today with surgical services. She was unable to wean sufficiently with her spontaneous breathing trials yesterday. The patient also got dialysis today. Heparin is on hold for procedure. Hemoglobin is 7.2. Patient does have some improvement in her digits and toes and they are less blue /purple in appearance and less cold and clammy today. Pulse is still obtainable with Doppler. All labs and reports have been 11/26/2018: Patient seen and examined in the intensive care unit covering for Dr. Bandar Samuels. The patient underwent tracheostomy placement yesterday. Per nursing she is able to titrate down on the Levophed. The patient is currently undergoing hemodialysis. The patient has anasarca and is grossly edematous in all extremities. She does arouse to verbal and tactile stimuli. She does follow commands. 2018: Patient seen and examined in the intensive care unit covering for Dr. Bandar Paul. The patient is awake and following commands. She did have a bowel movement and nursing is cleaning her out. She does have anasarca and edema. She tolerated hemodialysis yesterday. Objective - Vital Signs Vital signs: Vital Signs Temp 97.5 F L 11/27/18 08:00 Pulse 73 11/27/18 12:00 Resp 21 11/27/18 12:00 BP 100/48 11/27/18 12:00 Pulse Ox 100 11/27/18 12:00 Intake & Output 11/26/18 11/27/18 11/27/18 18:59 06:59 18:59 Intake Total 3379.142 1635.412 891.592 Output Total 12 37 10 Balance 3367.142 1598.412 881.592 Weight 131 kg Intake: IV 1880 1155 720 Cefepime 1 gm In Sodium 100 50 Chloride 0.9% 50 ml @ 100 mls/hr IVPB Q24HR [facility] Rx #:[id number] Magnesium Sulfate-D5w Pmx 200 1 gm In Dextrose/Water 1 100ml.bag @ 100 mls/hr IVPB Q1H [facility] Rx#: [id number] Mvi, Adult No.4 with Vit 960 880 480 K 10 ml Trace (Conc-1Ml/ Dose) 1 ml Sodium Acetate 20 meq Potassium Chloride 20 meq Calcium Chloride 0.33 gm In Amino Acid 5%-D15w 1,000 ml @ 80 mls/hr IV [facility] Rx#:[id number] Mvi, Adult No.4 with Vit 80 K 10 ml Trace (Conc-1Ml/ Dose) 1 ml Sodium Acetate 20 meq Potassium Chloride 20 meq Calcium Chloride 330 mg In Amino Acid 5%-D15w 1,000 ml @ 80 mls/hr IV .[facility] Rx#:[id number] Potassium Phosphate 10 100 mmol In Sodium Chloride 0 .9% 100 ml @ 50 mls/hr IV ONCE ONE Rx#:[id number] Sodium Chloride 0.9% 1, 240 175 90 000 ml @ 10 mls/hr IV . [facility] Rx#:[id number] metroNIDAZOLE-NS PMX 500 200 100 100 mg In Saline 1 100ml.bag @ 100 mls/hr IVPB Q8HR [facility] Rx#:[id number] Intake, IV Titration 1159.142 310.412 141.592 Amount Heparin Sod,Pork in 0.45% 6.687 180.973 60.534 NaCl 25,000 unit In 0.45 % NaCl 1 250ml.bag @ 8.45 UNITS/KG/HR 9.97 mls/hr IV .[facility] Rx#: [id number] Insulin Regular 100 unit 54.383 108.759 81.058 In Sodium Chloride 0.9% 100 ml @ Per Protocol IV .Q0M [facility] Rx#:[id number] Mvi, Adult No.4 with Vit 1034.3 K 10 ml Trace (Conc-1Ml/ Dose) 1 ml Sodium Acetate 20 meq Potassium Chloride 20 meq Calcium Chloride 0.33 gm In Amino Acid 5%-D15w 1,000 ml @ 80 mls/hr IV .[facility] Rx#:[id number] Norepinephrine 32 mg In 27.882 20.68 Sodium Chloride 0.9% 250 ml @ 0.1 MCG/KG/MIN 6 mls /hr IV .Q24H [facility] Rx#: [id number] Propofol 1,000 mg In 35.89 Empty Bag 1 bag @ Titrate IV .Q0M [facility] Rx#: [id number] Tube Feeding 110 30 Blood Product 310 Rc As-1 Unit 310 [id number] Other 30 60 Output: Urine 12 37 10 Other: Voiding Method Indwelling Catheter Indwelling Catheter # Voids 0 # Bowel Movements 1 1 ABP, PAP, CO, CI - Last Documented Arterial Blood Pressure 85/44 - Exam GENERAL EXAM: On mechanical ventilation with tracheostomy, morbidly obese HEAD: Normocephalic. EYES: Normal reaction of pupils, equal size. NOSE: Clear with pink turbinates. THROAT: No erythema or exudates. NECK: No masses, no JVD. CHEST: No chest wall deformity. LUNGS: Diminished with scattered rhonchi CVS: S1 and S2 normal with no audible mumurs, regular rhythm. ABDOMEN: No hepatosplenomegaly, normal bowel sounds, no guarding or rigidity. EXTREMITIES: +1 edema noted, blue digits and toes, cold to the touch, pedal pulses obtainable with Doppler. CENTRAL NERVOUS SYSTEM: Unable to assess, on sedation - Labs CBC & Chem 7: 11/27/18 04:00 11/27/18 04:00 Labs: Abnormal Lab Results - Last 24 Hours (Table) 11/26/18 11/26/18 11/26/18 Range/Units 09:20 11:59 12:53 WBC (3.8-10.6) k/uL RBC (3.80-5.40) m/uL Hgb (11.4-16.0) gm/dL Hct (34.0-46.0) % RDW (11.5-15.5) % Plt Count (150-450) k/uL Neutrophils # (1.3-7.7) k/uL Lymphocytes # (1.0-4.8) k/uL APTT (22.0-30.0) sec ABG pH (7.35-7.45) ABG pCO2 (35-45) mmHg ABG pO2 (83-108) mmHg ABG O2 Saturation (94-97) % Sodium (137-145) mmol/L BUN (7-17) mg/dL Creatinine (0.52-1.04) mg/dL Glucose (74-99) mg/dL POC Glucose (mg/dL) 133 H 137 H (75-99) mg/dL Calcium (8.4-10.2) mg/dL Crossmatch See Detail 11/26/18 11/26/18 11/26/18 Range/Units 14:06 17:08 18:00 WBC (3.8-10.6) k/uL RBC (3.80-5.40) m/uL Hgb (11.4-16.0) gm/dL Hct (34.0-46.0) % RDW (11.5-15.5) % Plt Count (150-450) k/uL Neutrophils # (1.3-7.7) k/uL Lymphocytes # (1.0-4.8) k/uL APTT 45.6 H (22.0-30.0) sec ABG pH (7.35-7.45) ABG pCO2 (35-45) mmHg ABG pO2 (83-108) mmHg ABG O2 Saturation (94-97) % Sodium (137-145) mmol/L BUN (7-17) mg/dL Creatinine (0.52-1.04) mg/dL Glucose (74-99) mg/dL POC Glucose (mg/dL) 171 H 206 H (75-99) mg/dL Calcium (8.4-10.2) mg/dL Crossmatch 11/26/18 11/26/18 11/26/18 Range/Units 18:02 19:02 20:25 WBC (3.8-10.6) k/uL RBC (3.80-5.40) m/uL Hgb (11.4-16.0) gm/dL Hct (34.0-46.0) % RDW (11.5-15.5) % Plt Count (150-450) k/uL Neutrophils # (1.3-7.7) k/uL Lymphocytes # (1.0-4.8) k/uL APTT (22.0-30.0) sec ABG pH (7.35-7.45) ABG pCO2 (35-45) mmHg ABG pO2 (83-108) mmHg ABG O2 Saturation (94-97) % Sodium (137-145) mmol/L BUN (7-17) mg/dL Creatinine (0.52-1.04) mg/dL Glucose (74-99) mg/dL POC Glucose (mg/dL) 190 H 214 H 178 H (75-99) mg/dL Calcium (8.4-10.2) mg/dL Crossmatch 11/26/18 11/26/18 11/26/18 Range/Units 21:13 22:26 23:10 WBC (3.8-10.6) k/uL RBC (3.80-5.40) m/uL Hgb (11.4-16.0) gm/dL Hct (34.0-46.0) % RDW (11.5-15.5) % Plt Count (150-450) k/uL Neutrophils # (1.3-7.7) k/uL Lymphocytes # (1.0-4.8) k/uL APTT (22.0-30.0) sec ABG pH (7.35-7.45) ABG pCO2 (35-45) mmHg ABG pO2 (83-108) mmHg ABG O2 Saturation (94-97) % Sodium (137-145) mmol/L BUN (7-17) mg/dL Creatinine (0.52-1.04) mg/dL Glucose (74-99) mg/dL POC Glucose (mg/dL) 205 H 168 H 191 H (75-99) mg/dL Calcium (8.4-10.2) mg/dL Crossmatch 11/27/18 11/27/18 11/27/18 Range/Units 00:03 01:14 01:15 WBC (3.8-10.6) k/uL RBC (3.80-5.40) m/uL Hgb (11.4-16.0) gm/dL Hct (34.0-46.0) % RDW (11.5-15.5) % Plt Count (150-450) k/uL Neutrophils # (1.3-7.7) k/uL Lymphocytes # (1.0-4.8) k/uL APTT 139.7 H* (22.0-30.0) sec ABG pH (7.35-7.45) ABG pCO2 (35-45) mmHg ABG pO2 (83-108) mmHg ABG O2 Saturation (94-97) % Sodium (137-145) mmol/L BUN (7-17) mg/dL Creatinine (0.52-1.04) mg/dL Glucose (74-99) mg/dL POC Glucose (mg/dL) 192 H 202 H (75-99) mg/dL Calcium (8.4-10.2) mg/dL Crossmatch 11/27/18 11/27/18 11/27/18 Range/Units 02:20 02:56 03:58 WBC (3.8-10.6) k/uL RBC (3.80-5.40) m/uL Hgb (11.4-16.0) gm/dL Hct (34.0-46.0) % RDW (11.5-15.5) % Plt Count (150-450) k/uL Neutrophils # (1.3-7.7) k/uL Lymphocytes # (1.0-4.8) k/uL APTT (22.0-30.0) sec ABG pH (7.35-7.45) ABG pCO2 (35-45) mmHg ABG pO2 (83-108) mmHg ABG O2 Saturation (94-97) % Sodium (137-145) mmol/L BUN (7-17) mg/dL Creatinine (0.52-1.04) mg/dL Glucose (74-99) mg/dL POC Glucose (mg/dL) 203 H 224 H 186 H (75-99) mg/dL Calcium (8.4-10.2) mg/dL Crossmatch 11/27/18 11/27/18 11/27/18 Range/Units 04:00 04:00 05:16 WBC 11.4 H (3.8-10.6) k/uL RBC 2.28 L (3.80-5.40) m/uL Hgb 7.1 L (11.4-16.0) gm/dL Hct 22.5 L (34.0-46.0) % RDW 19.4 H (11.5-15.5) % Plt Count 68 L (150-450) k/uL Neutrophils # 9.7 H (1.3-7.7) k/uL Lymphocytes # 0.9 L (1.0-4.8) k/uL APTT (22.0-30.0) sec ABG pH (7.35-7.45) ABG pCO2 (35-45) mmHg ABG pO2 (83-108) mmHg ABG O2 Saturation (94-97) % Sodium 130 L (137-145) mmol/L BUN 54 H (7-17) mg/dL Creatinine 3.02 H (0.52-1.04) mg/dL Glucose 187 H (74-99) mg/dL POC Glucose (mg/dL) 189 H (75-99) mg/dL Calcium 7.7 L (8.4-10.2) mg/dL Crossmatch 11/27/18 11/27/18 11/27/18 Range/Units 05:26 06:20 07:12 WBC (3.8-10.6) k/uL RBC (3.80-5.40) m/uL Hgb (11.4-16.0) gm/dL Hct (34.0-46.0) % RDW (11.5-15.5) % Plt Count (150-450) k/uL Neutrophils # (1.3-7.7) k/uL Lymphocytes # (1.0-4.8) k/uL APTT (22.0-30.0) sec ABG pH 7.29 L (7.35-7.45) ABG pCO2 47 H (35-45) mmHg ABG pO2 156 H (83-108) mmHg ABG O2 Saturation 99.9 H (94-97) % Sodium (137-145) mmol/L BUN (7-17) mg/dL Creatinine (0.52-1.04) mg/dL Glucose (74-99) mg/dL POC Glucose (mg/dL) 189 H 206 H (75-99) mg/dL Calcium (8.4-10.2) mg/dL Crossmatch 11/27/18 11/27/18 11/27/18 Range/Units 08:14 10:01 11:29 WBC (3.8-10.6) k/uL RBC (3.80-5.40) m/uL Hgb (11.4-16.0) gm/dL Hct (34.0-46.0) % RDW (11.5-15.5) % Plt Count (150-450) k/uL Neutrophils # (1.3-7.7) k/uL Lymphocytes # (1.0-4.8) k/uL APTT (22.0-30.0) sec ABG pH (7.35-7.45) ABG pCO2 (35-45) mmHg ABG pO2 (83-108) mmHg ABG O2 Saturation (94-97) % Sodium (137-145) mmol/L BUN (7-17) mg/dL Creatinine (0.52-1.04) mg/dL Glucose (74-99) mg/dL POC Glucose (mg/dL) 197 H 216 H 161 H (75-99) mg/dL Calcium (8.4-10.2) mg/dL Crossmatch Microbiology - Last 24 Hours (Table) 11/21/18 10:20 Blood Culture - Preliminary Blood No Growth after 120 hours Assessment and Plan Assessment: Acute on chronic renal failure Acute hypoxic respiratory failure requiring supplemental oxygen and mechanical ventilation - fluid overload with a component of pna - ecoli Small bilateral pleural effusions Atrial fibrillation, now rate controlled Ischemic cardiomyopathy Sepsis shock Altered mental status and metabolic encephalopathy DVT of the right lower extremity small bilateral pleural effusions Suspect GIB CKD IV, now ESRD on HD Severe anemia NSTEMI, Hx ASCAD and CABG Peripheral vascular disease DM2 Plan Tracheostomy placed Patient may need PEG tube in the near future, initiate tube feeds via [place] for now Medications have been reviewed and will be continued as ordered. Continue with metal dresser recommendations Hemodialysis per nephrology Continue to monitor hemoglobin Dietary for nutrition Insulin drip as ordered Heparin per cardiology Continue with pulmonary hygiene, coughing and deep breathing exercises, and supportive care. Supplemental oxygen to maintain oxygen saturations of 92% or better. Continue nebulizer treatments. GI and DVT prophylaxis. We will continue to monitor labs/results and adjust treatment as necessary. Further recommendations pending. Patient seen and examined covering for Dr. Bandar Paul.
[2018-11-27 14:01] LABS: Glucose,Whole Blood 133 mg/dL (75-99)
[2018-11-27 14:51] LABS: Glucose,Whole Blood 138 mg/dL (75-99)
--- NOTE | 2018-11-27 15:39 | P.PN ---
Subjective Progress Note Date: 11/27/18 This is an extremely sick intensive care unit patient, and my evaluation uncovering this patient for Dr. Gordillo upon his request. I noted the patient's history and review the records. I also met the family including her and the daughter. In summary, the patient is an extensive cardiac history including previous history of coronary artery disease and previous bypass surgery 2008, peripheral artery disease and previous vascular bypass to the lower extremities, CHF with impaired ejection fraction of 35%, pulmonary hypertension, history of chronic renal failure with stage IV kidney disease, chronic atrial fibrillation, previous history of a right lower extremity DVT, bruises support embolism, obstructive sleep apnea, obesity, who has been in the intensive care unit for altered mental status. During the course of the treatment the patient was intubated and placed on mechanical ventilator. During the course of treatments, the patient required pressors and the patient was being treated with levo fed for hemodynamic support. She ultimately went into end-stage renal disease and the patient had to be dialyzed via temporary dialysis catheter that was inserted in the right IJ. During the course of the treatment, the patient was also noted to have episodic GI bleed while being on anticoagulation for DVT. Plastic surgery was also consulted for possibility of an underlying IVC filter placement Rise to my morning rounds, the patient was already decompensating. The nursing staff had called Dr. Gordillo early this morning for issues related diminished level of consciousness, unresponsiveness, worsening shortness of breath and consented the patient may not be able to protect her airways. At that point, in order was given to intubate the patient and put on a mechanical ventilator. The patient was already intubated, arrival. The patient was an assist-control mode of ventilator. The patient had a post intubation chest exit that showed evidence of pulmonary edema. She was around 2 cm above the nieves. The patient had a temporary.scattered on the right and small bilateral pleural effusion right more than left in addition to some atelectatic changes in lung bases bilaterally. Apparently, BiPAP was attempted prior to intubation process however the patient failed the BiPAP. Hemodynamically, the patient is in atrial fibrillation. The patient is currently on a combination of Lopressor 25 mg by mouth twice a day and amiodarone 400 mg by mouth twice a day. Nevertheless, post intubation the patient had to go back on pressors to maintain a mean artery pressure above 65. Urine output was low. The patient was having bloody stool this being collected in a fecal management system. I repeated the hemoglobin that came down to 6.4. At that point a body ordered to liters of IV fluid in the form of normal saline and 2 units of packed RBC. The patient was already on sedation and she was, comfortable. Abdomen was nondistended yet she had significant amount of edema in all 4 extremities. The patient was afebrile. White cell count was not elevated. The patient however the most rated necrotic digits in the feet bilaterally and the pulses were quite diminished in all 4 extremities and there were only obtained by Doppler signal. The PPT was subtherapeutic and adjustments on the heparin infusion is to follow. The blood gas showed a pH of 7.32 with a pCO2 of 42 and pO2 more than 400 and based on that the FiO2 was weaned down to 50% and the PEEP was kept at 5. The patient is a tidal volume of 450. Antibiotics was added on empiric basis and the patient was placed on a combination of cefepime and Flagyl suspecting ischemic colitis as the patient's was having chronic abdominal pain and she is a vasculopath is very much likely that she has symptoms of chronic mesenteric ischemia with possibly an acute ischemic component contributing to her bloody diarrhea. On today's evaluation of 11/22/2018, this patient remains critically ill. The patient is still sedated with Diprivan which is running at 20 g per KG per minute. She can easily aroused from sedation. At times we have also seen and follows some simple commands. As such, neurologically there is adequate function that we think of based on our sedation holiday that were given briefly to this patient. From the pulmonary standpoint, the patient remains on a mechanical ventilator and an assist-control mode with tidal volume of 500, FiO2 of 40% with a PEEP of 5 and the rate of 20. Blood gas was not obtained as the patient does not have any arterial line access at this point in time. The chest x-ray from today shows no significant change compared to yesterday. The patient has small bilateral pleural effusion and atelectatic changes in lung bases. There is a right-sided PICC line catheter in place. ET tube also is in a good location and there is no consolidation or airspace disease. Hemodynamically, the patient received a total of 2 L of IV fluids yesterday in the form of normal saline and the patient also received 2 units of packed RBC. Subsequent hemoglobin came up to 8.0. The patient has been kept on her pressors and currently she is on 2 g per KG of per minute of norepinephrine infusion. Urine output is in order of 0 mL an hour. The patient is a producing any urine output at this point in time. The plan is to proceed with dialysis today. The patient has a temper dialysis catheter in her right IJ. The dose will be done today. In terms of GI bleed, as mentioned the patient had on and off melanotic stools. EGD that was done earlier by GI on 11/10/2018 showed some ischemic changes in the antrum and the body of the stomach. Colonoscopy was not done. I suspect that there may be a ischemic bowel as the patient has symptoms that were typical of chronic mesenteric ischemia as the patient has chronic atherosclerotic disease. The patient is still covered with broad-spectrum antibiotics. Yesterday. Currently the patient is on a combination of IV Flagyl and IV cefepime. She is afebrile. White cell count is not elevated. The cardiac enzymes were positive in the setting of this massive shock state of the patient counted yesterday. Troponin initially came back at 6.8 and subsequently peaked at 7.9. Cardiology is on the case. No interventions are being planned for now. The patient remains nothing by mouth. I think TPN needs to be started on this patient for nutritional support. She remains on IV heparin regarding her right lower extremity DVT. In terms of the ischemic necrotic changes in his digits and toes, these are somewhat improved compared to yesterday. Pulses are obtained by Doppler. No palpable pulses in all 4 extremities that remain cold and clammy. No other significant events overnight. I have elected discussion with the patient's yesterday explained to him the critical nature of the condition. I also think he has a good understanding. I tried to fill in a lot of details regarding her chronic cardiac history, peripheral vascular disease, renal disease, etc. The daughter was more aware and receptive of the ongoing medical problems. On today's evaluation of 11/23/2018, I'm seeing this patient for a follow-up. This patient remains on a mechanical ventilator. She remains intubated. This morning, she is assist-control mode at the rate of 20 with tidal volume of 500 and FiO2 of 40% with a PEEP of 5. The blood gases from today showed a pH of 7.30 with a pCO2 of 44 and pO2 133. Chest x-ray from this morning showed that the tube was in a good location. There was some pulmonary vascular congestion. For the most part the x-ray findings are essentially stable. ET tube was in a good location. The patient indwelling tubes remain unchanged. No significant orotracheal secretions. Hemodynamically, the patient is still low dose pressors which is currently running at 2 g per KG or permanent of norepinephrine infusion. The patient underwent a successful yesterday another session of dialysis was given to her today. Overall she had 2 L of ultrafiltration today and the same was done yesterday. Her volume status is slightly improved. The patient overall looks in significant overload still with extensive edema in all 4 extremities. The patient is afebrile. The patient is on empiric antibiotic coverage utilizing a combination of cefepime and Flagyl. The patient is still having some liquid the body stool with seems to be melanotic in nature. She is on IV protonic stitches on IV heparin regarding a left lower extremity DVT. The cardiac rhythm is atrial fibrillation with a controlled rate. TPN is being utilized and the patient remains nothing by mouth for now. Clinically, she is easily arousable 1. Sedation. A sedation holiday was given to her and the patient was able to follow some simple commands. Based on this, sedation was resumed and currently Diprivan is running at 20 mics. The patient's lower extremities are warm and compared to yesterday. The pulses are very much diminished and there obtained by Doppler signal. No worsening in the digital necrosis both in the fingers or in the feet bilaterally. The white cell count is at 13. Hemoglobin stable at 7.8. No significant metabolic acidosis. Rest of the electrolytes are all stable and within normal limits. On 11/24/2018, patient is being seen in follow-up. Remains in the intensive care unit. Remains on a mechanical ventilator. Vent settings are essentially unchanged. She is on assist control mode of ventilation. Tidal volume is at 500 and FiO2 of 40% and a PEEP of 5. Blood gases showed a pH of 7.36 with a pCO2 of 44 and pO2 of 121. Chest x-ray shows no acute abnormalities. There is improvement in the volume status with some limited bibasilar atelectatic changes. Otherwise no other acute of the masses are noted. Hemodynamically, the patient remains in atrial fibrillation. The patient is still requiring norepinephrine infusion for hemodynamic support and the levo fed is running somewhere between 4 and 5 mg per KG per minute. No urine output. Dialysis was done yesterday another session of dialysis will be done today. We'll proceed with the sedation holiday and checking the patient's weaning parameters. I think overall, the patient may not a be a good candidate for extubation. This has been tried daily, the patient failed. I have opened the discussion of the possibility of needing a tracheostomy with the family. The family was receptive. A surgical consultation will also be obtained. She is not having any GI bleed. Minimal amount of brown to dark stool but is being cannulated in the fecal management system. The patient remains on IV heparin. Hemoglobin stable at 7.2. She is afebrile. She remains on the same antibiotic coverage. She is receiving TPN for nutritional support. She is on insulin drip for blood sugar control. She is also on Diprivan which is currently running at 20 g per KG per minute. She has still extensive edema and third spacing in all 4 extremities. Pulses are diminished in all 4 extremities that there barely palpable and are obtainable by Doppler signals. Cyanotic changes in the digits are seen in the feet and in the hands. On 11/25/2018, I'm seeing this patient for a follow-up. The tentative plan is for this patient to undergo a tracheostomy tube insertion today. Yesterday, the patient was given a spontaneous breathing trial with upper support of 5 and PEEP of 5. After 45 minutes, she became quite uncomfortable and she started getting tachypneic and tachycardic. Based on that this point is breathing trial was aborted and no extubation was performed. As planned, we'll going to proceed with a tracheostomy tube insertion today. The patient is on sedation with Diprivan 35 mics. The patient got dialyzed today. She remains on the same vent setting. She is assist-control mode with a tidal volume of 500 and FiO2 40% and a PEEP of 5 and a rate of 20. Blood gases are noted this morning with a pH of 7.35 with a pCO2 of 46 and pO2 120. No cervical leukocytosis. No fever. No urine output. IV heparin is on hold awaiting the tracheostomy tube insertion. She is receiving preoperative support. Hemoglobin stable at 7.2. No evidence of any acute GI bleeding. No other significant events over the past 24 hours. Family is agreeable for the procedure. I discussed with the patient family on multiple occasions. On today's evaluation of 11/26/2018, the patient underwent her tracheostomy tube insertion without any major complication. A new dialysis catheter was also inserted in her right IJ. She is off sedation. She is opening up her eyes. She is following simple commands. She is interactive. She remains on her same vent setting. She is off sedation. Her ventilator is currently set at the rate of 20 with a PEEP of 5 and FiO2 of 40% with a tidal volume of 500. The chest x-ray findings are stable. The blood gases showed a pH of 7.36 with a pCO2 of 44 and pO2 of 136. Morning hemoglobin was at 6.8 and the patient will be given a unit of packed RBC. There is no convincing evidence that patient is having active GI bleed and we decided to restart IV heparin today and start tube feeding for now at a very low rate and assess the patient's ability to tolerate tube feeding. She started on TPN for nutritional support. She remains considerably swollen either the patient is still having difficulty amount of fluid intake which is not matching ultrafiltration at this being done on a daily basis. She underwent hemodialysis and ultrafiltration today. Around 20 half liters of fluid was removed. The patient is still on 10 mics of norepinephrine infusion for hemodynamic support. She remains in atrial fibrillation. On 11/27/2018, the patient is fully awake and alert. The patient is on a mechanical ventilator. Vent settings are essentially unchanged. The patient remains in a tidal volume of 500 with an FiO2 of 40% and a PEEP of 5 and the respiratory rate of 20. The blood gases from tod showed a pH of 1.29 with a pCO2 of 47 and pO2 of 159. Chest x-ray findings are essentially stable. The patient is undergoing daily dialysis. No fever. No chills. The most active issues for now is that resulted GI bleed this been going on for the past 1 week. The patient is having black tarry stool very highly suspicious for an upper GI bleed. For that reason, I consulted with gastroenterology and general surgery. I talked with . general surgery and the patient would have another EGD done tomorrow. We will may also consider a colonoscopy at the same time. Meanwhile, had to discontinue the IV heparin knowing that the patient's platelet count at that don't to 68,000. A repeat Doppler of the right lower extremity showing a persistent right lower extremity DVT in the popliteal vein. Based on all this findings, I involved vascular surgery and the patient will be having a IVC filter placed guarding her DVT in her inability to receive anticoagulants because of the thrombus cytopenia and ongoing GI bleed. That she 'll feeds will be placed on hold and the patient be continued on TPN for nutritional support. Otherwise, no other significant events pH is afebrile. She is on no pressors for now. Pressors have been weaned off and discontinued earlier this morning. Objective - Vital Signs Vital signs: Vital Signs Temp 97.5 F L 11/27/18 08:00 Pulse 73 11/27/18 14:00 Resp 22 11/27/18 14:00 BP 99/47 11/27/18 14:00 Pulse Ox 99 11/27/18 14:00 Intake & Output 11/26/18 11/27/18 11/27/18 18:59 06:59 18:59 Intake Total 3379.142 1859.211 1639.342 Output Total 12 37 10 Balance 3367.142 7436.354 3995.342 Weight 131 kg Intake: IV 1880 1155 910 Cefepime 1 gm In Sodium 100 50 Chloride 0.9% 50 ml @ 100 mls/hr IVPB Q24HR [facility] Rx #:[id number] Magnesium Sulfate-D5w Pmx 200 1 gm In Dextrose/Water 1 100ml.bag @ 100 mls/hr IVPB Q1H [facility] Rx#: [id number] Mvi, Adult No.4 with Vit 960 880 640 K 10 ml Trace (Conc-1Ml/ Dose) 1 ml Sodium Acetate 20 meq Potassium Chloride 20 meq Calcium Chloride 0.33 gm In Amino Acid 5%-D15w 1,000 ml @ 80 mls/hr IV .BY DURATION [facility] Rx#:[id number] Mvi, Adult No.4 with Vit 80 K 10 ml Trace (Conc-1Ml/ Dose) 1 ml Sodium Acetate 20 meq Potassium Chloride 20 meq Calcium Chloride 330 mg In Amino Acid 5%-D15w 1,000 ml @ 80 mls/hr IV .BY DURATION [facility] Rx#:[id number] Potassium Phosphate 10 100 mmol In Sodium Chloride 0 .9% 100 ml @ 50 mls/hr IV ONCE ONE Rx#:[id number] Sodium Chloride 0.9% 1, 240 175 120 000 ml @ 10 mls/hr IV . Q24H [facility] Rx#:[id number] metroNIDAZOLE-NS PMX 500 200 100 100 mg In Saline 1 100ml.bag @ 100 mls/hr IVPB Q8HR [facility] Rx#:[id number] Intake, IV Titration 1159.142 718.348 2996.342 Amount Heparin Sod,Pork in 0.45% 6.687 180.973 60.534 NaCl 25,000 unit In 0.45 % NaCl 1 250ml.bag @ 8.45 UNITS/KG/HR 9.97 mls/hr IV .Q24H [facility] Rx#: [id number] Insulin Regular 100 unit 54.383 108.759 102.808 In Sodium Chloride 0.9% 100 ml @ Per Protocol IV .Q0M [facility] Rx#:[id number] Mvi, Adult No.4 with Vit 1011 K 10 ml Trace (Conc-1Ml/ Dose) 1 ml In Amino Acid 5%-D15w+Lytes*E* 1,000 ml @ 80 mls/hr IV .BY DURATION [facility] Rx#: [id number] Mvi, Adult No.4 with Vit 1034.3 K 10 ml Trace (Conc-1Ml/ Dose) 1 ml Sodium Acetate 20 meq Potassium Chloride 20 meq Calcium Chloride 0.33 gm In Amino Acid 5%-D15w 1,000 ml @ 80 mls/hr IV .BY DURATION [facility] Rx#:[id number] Norepinephrine 32 mg In 27.882 20.68 0 Sodium Chloride 0.9% 250 ml @ 0.1 MCG/KG/MIN 6 mls /hr IV .Q24H [facility] Rx#: [id number] Propofol 1,000 mg In 35.89 Empty Bag 1 bag @ Titrate IV .Q0M [facility] Rx#: [id number] Tube Feeding 110 30 Blood Product 310 Rc As-1 Unit 310 [id number] Other 30 60 Output: Urine 12 37 10 Other: Voiding Method Indwelling Catheter Indwelling Catheter # Voids 0 0 # Bowel Movements 1 0 ABP, PAP, CO, CI - Last Documented Arterial Blood Pressure 85/44 - Exam The patient is calm and comfortable and the patient is not in acute distress. The patient is tracheostomy tube in place. Morbidly obese. Cold extremities and addition to ischemic toes bilaterally. Patient currently has a Dobbhoff and the patient has a a tracheostomy tube in place.. This morning, the patient is sedated. She'll be given a sedation holiday following completion of the hemodialysis. Head exam was generally normal. There was no scleral icterus or corneal arcus. Mucous membranes were moist. Neck was supple and without jugular venous distension, thyromegaly, or carotid bruits. Carotids were easily palpable bilaterally. There was no adenopathy. The patient has a right IJ triple lumen catheter/temporary dialysis catheter and exit site is clean. The patient also tracheostomy tube in place. The patient has a Bivona trach tube in place. Lungs were clear to auscultation and percussion, and with normal diaphragmatic excursion. No wheezes or rales were noted. Heart sounds are irregular, positive S1-S2, no cervical murmurs could be appreciated. Abdomen is obese soft nontender. Organs cannot be accurately palpated. There is no ascites. No direct or rebound tensile guarding at this point in time. Extremities are cold. Pulses are diminished in all 4 extremities and they're obtained only by Doppler. Necrotic digits in the feet bilaterally. No clubbing. There is edema +2 in all extremities. Skin cold and clammy and addition to necrotic skin changes in the toes of the lower extremity feet bilaterally. Neurologically the patient awake and alert. Following commands. She is moving all 4 extremities to she is profoundly weak and unable to raise her arms against gravity. Nevertheless, the cranial nerves are intact. She has a weak cough. - Labs CBC & Chem 7: 11/27/18 04:00 11/27/18 04:00 Labs: Abnormal Lab Results - Last 24 Hours (Table) 11/26/18 11/26/18 11/26/18 Range/Units 17:08 18:00 18:02 WBC (3.8-10.6) k/uL RBC (3.80-5.40) m/uL Hgb (11.4-16.0) gm/dL Hct (34.0-46.0) % RDW (11.5-15.5) % Plt Count (150-450) k/uL Neutrophils # (1.3-7.7) k/uL Lymphocytes # (1.0-4.8) k/uL APTT 45.6 H (22.0-30.0) sec ABG pH (7.35-7.45) ABG pCO2 (35-45) mmHg ABG pO2 (83-108) mmHg ABG O2 Saturation (94-97) % Sodium (137-145) mmol/L BUN (7-17) mg/dL Creatinine (0.52-1.04) mg/dL Glucose (74-99) mg/dL POC Glucose (mg/dL) 206 H 190 H (75-99) mg/dL Calcium (8.4-10.2) mg/dL 11/26/18 11/26/18 11/26/18 Range/Units 19:02 20:25 21:13 WBC (3.8-10.6) k/uL RBC (3.80-5.40) m/uL Hgb (11.4-16.0) gm/dL Hct (34.0-46.0) % RDW (11.5-15.5) % Plt Count (150-450) k/uL Neutrophils # (1.3-7.7) k/uL Lymphocytes # (1.0-4.8) k/uL APTT (22.0-30.0) sec ABG pH (7.35-7.45) ABG pCO2 (35-45) mmHg ABG pO2 (83-108) mmHg ABG O2 Saturation (94-97) % Sodium (137-145) mmol/L BUN (7-17) mg/dL Creatinine (0.52-1.04) mg/dL Glucose (74-99) mg/dL POC Glucose (mg/dL) 214 H 178 H 205 H (75-99) mg/dL Calcium (8.4-10.2) mg/dL 11/26/18 11/26/18 11/27/18 Range/Units 22:26 23:10 00:03 WBC (3.8-10.6) k/uL RBC (3.80-5.40) m/uL Hgb (11.4-16.0) gm/dL Hct (34.0-46.0) % RDW (11.5-15.5) % Plt Count (150-450) k/uL Neutrophils # (1.3-7.7) k/uL Lymphocytes # (1.0-4.8) k/uL APTT (22.0-30.0) sec ABG pH (7.35-7.45) ABG pCO2 (35-45) mmHg ABG pO2 (83-108) mmHg ABG O2 Saturation (94-97) % Sodium (137-145) mmol/L BUN (7-17) mg/dL Creatinine (0.52-1.04) mg/dL Glucose (74-99) mg/dL POC Glucose (mg/dL) 168 H 191 H 192 H (75-99) mg/dL Calcium (8.4-10.2) mg/dL 11/27/18 11/27/18 11/27/18 Range/Units 01:14 01:15 02:20 WBC (3.8-10.6) k/uL RBC (3.80-5.40) m/uL Hgb (11.4-16.0) gm/dL Hct (34.0-46.0) % RDW (11.5-15.5) % Plt Count (150-450) k/uL Neutrophils # (1.3-7.7) k/uL Lymphocytes # (1.0-4.8) k/uL APTT 139.7 H* (22.0-30.0) sec ABG pH (7.35-7.45) ABG pCO2 (35-45) mmHg ABG pO2 (83-108) mmHg ABG O2 Saturation (94-97) % Sodium (137-145) mmol/L BUN (7-17) mg/dL Creatinine (0.52-1.04) mg/dL Glucose (74-99) mg/dL POC Glucose (mg/dL) 202 H 203 H (75-99) mg/dL Calcium (8.4-10.2) mg/dL 11/27/18 11/27/18 11/27/18 Range/Units 02:56 03:58 04:00 WBC (3.8-10.6) k/uL RBC (3.80-5.40) m/uL Hgb (11.4-16.0) gm/dL Hct (34.0-46.0) % RDW (11.5-15.5) % Plt Count (150-450) k/uL Neutrophils # (1.3-7.7) k/uL Lymphocytes # (1.0-4.8) k/uL APTT (22.0-30.0) sec ABG pH (7.35-7.45) ABG pCO2 (35-45) mmHg ABG pO2 (83-108) mmHg ABG O2 Saturation (94-97) % Sodium 130 L (137-145) mmol/L BUN 54 H (7-17) mg/dL Creatinine 3.02 H (0.52-1.04) mg/dL Glucose 187 H (74-99) mg/dL POC Glucose (mg/dL) 224 H 186 H (75-99) mg/dL Calcium 7.7 L (8.4-10.2) mg/dL 11/27/18 11/27/18 11/27/18 Range/Units 04:00 05:16 05:26 WBC 11.4 H (3.8-10.6) k/uL RBC 2.28 L (3.80-5.40) m/uL Hgb 7.1 L (11.4-16.0) gm/dL Hct 22.5 L (34.0-46.0) % RDW 19.4 H (11.5-15.5) % Plt Count 68 L (150-450) k/uL Neutrophils # 9.7 H (1.3-7.7) k/uL Lymphocytes # 0.9 L (1.0-4.8) k/uL APTT (22.0-30.0) sec ABG pH 7.29 L (7.35-7.45) ABG pCO2 47 H (35-45) mmHg ABG pO2 156 H (83-108) mmHg ABG O2 Saturation 99.9 H (94-97) % Sodium (137-145) mmol/L BUN (7-17) mg/dL Creatinine (0.52-1.04) mg/dL Glucose (74-99) mg/dL POC Glucose (mg/dL) 189 H (75-99) mg/dL Calcium (8.4-10.2) mg/dL 11/27/18 11/27/18 11/27/18 Range/Units 06:20 07:12 08:14 WBC (3.8-10.6) k/uL RBC (3.80-5.40) m/uL Hgb (11.4-16.0) gm/dL Hct (34.0-46.0) % RDW (11.5-15.5) % Plt Count (150-450) k/uL Neutrophils # (1.3-7.7) k/uL Lymphocytes # (1.0-4.8) k/uL APTT (22.0-30.0) sec ABG pH (7.35-7.45) ABG pCO2 (35-45) mmHg ABG pO2 (83-108) mmHg ABG O2 Saturation (94-97) % Sodium (137-145) mmol/L BUN (7-17) mg/dL Creatinine (0.52-1.04) mg/dL Glucose (74-99) mg/dL POC Glucose (mg/dL) 189 H 206 H 197 H (75-99) mg/dL Calcium (8.4-10.2) mg/dL 11/27/18 11/27/18 11/27/18 Range/Units 10:01 11:29 13:16 WBC (3.8-10.6) k/uL RBC (3.80-5.40) m/uL Hgb (11.4-16.0) gm/dL Hct (34.0-46.0) % RDW (11.5-15.5) % Plt Count (150-450) k/uL Neutrophils # (1.3-7.7) k/uL Lymphocytes # (1.0-4.8) k/uL APTT (22.0-30.0) sec ABG pH (7.35-7.45) ABG pCO2 (35-45) mmHg ABG pO2 (83-108) mmHg ABG O2 Saturation (94-97) % Sodium (137-145) mmol/L BUN (7-17) mg/dL Creatinine (0.52-1.04) mg/dL Glucose (74-99) mg/dL POC Glucose (mg/dL) 216 H 161 H 133 H (75-99) mg/dL Calcium (8.4-10.2) mg/dL 11/27/18 Range/Units 14:21 WBC (3.8-10.6) k/uL RBC (3.80-5.40) m/uL Hgb (11.4-16.0) gm/dL Hct (34.0-46.0) % RDW (11.5-15.5) % Plt Count (150-450) k/uL Neutrophils # (1.3-7.7) k/uL Lymphocytes # (1.0-4.8) k/uL APTT (22.0-30.0) sec ABG pH (7.35-7.45) ABG pCO2 (35-45) mmHg ABG pO2 (83-108) mmHg ABG O2 Saturation (94-97) % Sodium (137-145) mmol/L BUN (7-17) mg/dL Creatinine (0.52-1.04) mg/dL Glucose (74-99) mg/dL POC Glucose (mg/dL) 138 H (75-99) mg/dL Calcium (8.4-10.2) mg/dL Microbiology - Last 24 Hours (Table) 11/21/18 10:20 Blood Culture - Final Blood No Growth after 144 hours Assessment and Plan Plan: Assessment 1 acute hypoxic respiratory failure, currently the patient is trached and the patient has a Bivona tracheostomy tube in place. She remains on the same vent setting. Chest x-ray findings are stable. Oxygenation is adequate for now. 2 altered mental status recovered as the patient was taken off sedation. She is awake and alert and she is following commands appropriately. 4 anemia, multifactorial, including episodic upper GI bleeding. The patient would have another EGD done tomorrow. 5 suspected ischemic colitis with secondary GI bleeding, lactic acid level was nonelevated 6 acute on chronic renal failure and the patient is anuric currently on hemodialysis via a temper dialysis catheter in the right femoral vein. The patient is undergoing daily dialysis with ultrafiltration 7 DVT of the right lower extremity currently on IV heparin 8 coronary artery disease with previous bypass surgery in 2008, the patient also developed an acute non-ST segment elevation myocardial infarction with a peak troponin of 7. EKG is not showing any ST segment elevations or depressions. Cardiology is on the case. 9 severe peripheral vascular disease with previous best of bypass surgery to the lower extremities bilaterally 10 ischemic/necrotic toes and fingers , secondary to hypoperfusion in addition to an underlying severe peripheral vascular disease, currently inactive in stable 11 small bilateral pleural effusion right more than left, improved and stable on today's chest x-ray 12 acute non-ST segment elevation myocardial infarction the troponin is up to 7 13 chronic atrial fibrillation with episodes of rapid ventricular response currently well-controlled 14 volume overload and the patient is having daily dialysis and ultrafiltration 15 systolic heart failure with ejection fraction of 30-35% and severe pulmonary hypertension moderate degree of tricuspid regurgitation 16 chronic stage IV kidney disease secondary to diabetic kidney disease and nephrosclerosis, currently on hemodialysis 17 diabetes mellitus, currently on insulin drip 18 poor baseline performance and functional status secondary to above-mentioned comorbidities 19 hypotension currently the patient is off pressors 20 persistent right lower extremity DVT 21 thrombocytopenia. Plan Continue the supportive care. The patient will be undergoing a IVC filter placement by vascular surgery. The repeat EGD will be done to identify any source of upper GI bleeding. Meanwhile, the patient's IV heparin will be kept on hold for the next 12 hours. Vascular surgeries on the case pigeon surgeries on the case. Monitor the platelet counts. Continue vent support. Continue same antibiotic coverage. Continue TPN for nutritional support. We'll continue to follow. Condition is still critical. Disposition was done and more than 40 minutes including discussions done with the family and the vascular surgeon and the general surgeon regarding ongoing GI bleed and IVC filter placement. Time with Patient: Greater than 30
[2018-11-27 16:28] LABS: Glucose,Whole Blood 163 mg/dL (75-99)
[2018-11-27 18:43] LABS: Glucose,Whole Blood 189 mg/dL (75-99)
[2018-11-27 20:01] LABS: Glucose,Whole Blood 211 mg/dL (75-99)
[2018-11-27 21:38] LABS: Glucose,Whole Blood 202 mg/dL (75-99)
[2018-11-27 22:24] LABS: Glucose,Whole Blood 198 mg/dL (75-99)
[2018-11-27 23:19] LABS: Glucose,Whole Blood 162 mg/dL (75-99)
--- NOTE | 2018-11-27 23:48 | PN ---
PROGRESS NOTE DATE OF SERVICE: 11/27/2018. REASON FOR FOLLOWUP: Aspiration pneumonia. INTERVAL HISTORY: The patient is currently afebrile. The patient has been breathing comfortably. He is hemodynamically stable. nausea, diarrhea. PHYSICAL EXAMINATION: Blood pressure 102/61 with a pulse of 83, temperature of 98. She is 100% on 40% FiO2. General description is a middle-aged female lying in bed in no distress. Respiratory system: Unlabored breathing with decreased breath sounds in the base, no wheeze. Heart S1, S2. Regular rate and rhythm. ABDOMEN: Soft. Mildly distended. No guarding or rigidity. LABS: Hemoglobin 7.1, white count of 11.4. BUN of 34, creatinine of 3.02. DIAGNOSTIC IMPRESSION AND PLAN: Patient with acute respiratory failure which is likely multifactorial, possible component of aspiration pneumonia. Patient currently covered with and Flagyl to continue. Patient is status post trach. We will continue to monitor the patient's clinical course closely. Continue supportive care. MMODL / IJN: [id number] /
[2018-11-28 00:22] LABS: Glucose,Whole Blood 171 mg/dL (75-99)
[2018-11-28] MEDS: HYDROmorphone 0.5 MG/0.5 ML SYRINGE IVP PRN ×2 (00:35→22:08)
[2018-11-28] MEDS: 1: MVI, ADULT NO.4 WITH VIT K 10 ML, TRACE (CONC-1ML/DOSE) 1 ML in AMINO ACID 5%-D15W+LY IV SCH ×6 (01:13→15:14)
[2018-11-28 02:16] LABS: Glucose,Whole Blood 128 mg/dL (75-99)
[2018-11-28 03:19] LABS: Glucose,Whole Blood 158 mg/dL (75-99)
[2018-11-28 04:33] LABS: ABG Base Excess -7.4 mmol/L; ABG HCO3 20 mmol/L (21-25); ABG Oxygen Saturation 99.1 % (94-97); ABG PCO2 50 mmHg (35-45); ABG PH 7.22 (7.35-7.45); ABG PO2 120 mmHg (83-108); ABG TCO2 22 mmol/L (19-24)
[2018-11-28 04:39] LABS: Glucose,Whole Blood 155 mg/dL (75-99)
[2018-11-28 05:08] LABS: Anisocytosis Slight; Basophils % (A) 0 %; Eosinophils # (A) 0.1 k/uL (0-0.7); Eosinophils % (A) 1 %; HCT 23.6 % (34.0-46.0); HGB 7.2 gm/dL (11.4-16.0); Hypochromasia Marked; Lymphocytes # (A) 1.2 k/uL (1.0-4.8); Lymphocytes % (A) 8 %; MCH 30.3 pg (25.0-35.0); MCHC 30.3 g/dL (31.0-37.0); MCV 99.9 fL (80.0-100.0); Macrocytosis Moderate; Mean Platelet Volume 8.5; Monocytes # (A) 0.9 k/uL (0-1.0); Monocytes % (A) 6 %; Neutrophils # (A) 11.7 k/uL (1.3-7.7); Neutrophils % (A) 81 %; Poikilocytosis Moderate; RBC 2.37 m/uL (3.80-5.40); RDW 19.3 % (11.5-15.5); WBC 14.4 k/uL (3.8-10.6)
[2018-11-28 05:19] LABS: Platelet Count 159 k/uL (150-450)
[2018-11-28 06:07] LABS: Ionized Calcium 5.1 mg/dL (4.5-5.3)
[2018-11-28 06:11] LABS: Glucose,Whole Blood 157 mg/dL (75-99)
[2018-11-28 06:27] LABS: Calcium 8.1 mg/dL (8.4-10.2); Magnesium 1.9 mg/dL (1.6-2.3); Phosphorus 4.3 mg/dL (2.5-4.5); Potassium 4.5 mmol/L (3.5-5.1)
[2018-11-28] MEDS: ALBUTEROL NEBULIZED 2.5 MG/3 ML INHALATION PRN ×2 (07:38→11:57)
--- NOTE | 2018-11-28 08:28 | PN ---
PROGRESS NOTE Mrs. Monahan is a 58-year-old female with history of coronary artery disease, status post coronary artery bypass grafting, ischemic cardiomyopathy, history of peripheral vascular disease, end-stage renal disease, who presented with abdominal pain and respiratory failure. She remains intubated. She has tracheostomy. She is awake, following commands. She is in atrial fibrillation with controlled ventricular response. She has no significant ventricular ectopic activity. She continues to be on norepinephrine. She continues to be on amiodarone 200 mg twice a day, Lipitor 40 mg daily, IV heparin, metoprolol tartrate 25 mg twice a day. PHYSICAL EXAMINATION: Blood pressure 120/40 with a heart rate in the 80s. LUNGS: Clear anteriorly. HEART: Irregular, regular, S1, S2. No S3 with a systolic murmur at the base. ABDOMEN: Soft, obese. Hypoactive bowel sounds. EXTREMITIES: +2 edema. Gangrenous changes in the digits were noted, although with mild improvement. Neurologically, she is following command. LAB DATA: Revealed a hemoglobin 7.2, BUN and creatinine 17 and 3.52, potassium 4.5. IMPRESSION: 1. Respiratory failure with evidence of fluid overload and possible aspiration pneumonia. 2. Status post coronary artery bypass grafting. 3. Ischemic cardiomyopathy. 4. Peripheral vascular disease. 5. End-stage renal disease. 6. Persistent atrial fibrillation. 7. Diabetes mellitus. RECOMMENDATION: If no further intervention is needed, then will start her on oral anticoagulation. In the meantime, will continue the rest of her medical regimen. The prognosis remains guarded. MMODL / IJN: [id number] /
[2018-11-28] MEDS: SODIUM CHLORIDE 0.9% 1,000 ML IV SCH (09:10)
[2018-11-28] MEDS ORDERED: PROPOFOL 10 MG/ML 20 ML VIAL IV ONE (10:06)
[2018-11-28 10:13] LABS: Glucose,Whole Blood 144 mg/dL (75-99)
--- NOTE | 2018-11-28 10:42 | P.OP ---
Date of Procedure: 11/28/18 Preoperative Diagnosis: GI bleed Postoperative Diagnosis: No significant upper GI bleed visualized. Procedure(s) Performed: EGD Anesthesia: MAC Surgeon: Huang Menezes Pathology: none sent Condition: stable Disposition: ICU Description of Procedure: The patient's received IV sedation. The procedure was done at the bedside in the ICU. After receiving adequate IV anesthesia. The patient had the gastro- placed oropharynx and passed in the esophagus and into the stomach. The patient had a Dobbhoff tube which was removed during the procedure. Several times made to enter through the pylorus into the duodenum however this was not successful. There was no sign of blood in the stomach. There is no evidence of any bleeding. There is some minimal antral gastritis. There is no evidence of hemorrhage. The scope was retroflexed the remainder of the stomach appeared normal. GE junction was at 40 cm. The distal esophagus and proximal esophagus appeared normal. The scope was withdrawn for patient.
--- NOTE | 2018-11-28 11:20 | XR ---
EXAMINATION TYPE: XR chest 1V portable DATE OF EXAM: 11/28/2018 COMPARISON: 11/27/2018 INDICATION: Dobbhoff placement TECHNIQUE: Single frontal view of the chest is obtained. FINDINGS: The heart size is normal. The pulmonary vasculature is normal. Some mild left lower lobe infiltrate is not excluded. Tracheostomy tube is in the midline. Dobbhoff f eeding tube may be present. This can be tracked to the level of the heart. Due to degree of penetrati on the distal portion is not identified. IMPRESSION: 1. Suggestion of mild left lower lobe infiltrate. 2. Lines and catheters discussed above. 3. The distal portion of the Dobbhoff feeding tube is not identified within the [id number] on the current examination. This may be due to degree of penetration on the current study.
[2018-11-28 11:22] LABS: Glucose,Whole Blood 136 mg/dL (75-99)
[2018-11-28] MEDS: CEFEPIME 1 GM in SODIUM CHLORIDE 0.9% 50 ML IVPB SCH (11:22)
[2018-11-28] MEDS: CHLORHEXIDINE GLUCONATE 15 ML CUP MUCOUS MEM SCH ×2 (11:22→22:14)
[2018-11-28] MEDS: PANTOPRAZOLE 40 MG/10 ML VIAL IVP SCH ×2 (11:22→22:14)
[2018-11-28] MEDS: metroNIDAZOLE-NS PMX 500 MG in SALINE 1 100ML.BAG IVPB SCH ×2 (11:22→18:52)
[2018-11-28 12:02] LABS: Glucose,Whole Blood 115 mg/dL (75-99)
--- NOTE | 2018-11-28 12:54 | XR ---
EXAMINATION TYPE: XR chest 1V portable DATE OF EXAM: 11/28/2018 COMPARISON: 11/28/2018 earlier exam INDICATION: Difficulty breathing TECHNIQUE: Single frontal view of the chest is obtained. FINDINGS: The heart size is mildly prominent. The pulmonary vasculature is increasing in prominence. Mild infiltrates. BE at the bilateral lung bases. Tracheostomy tube is in the midline. Nasogastric tube transverses the thorax the tip out of the field -of-view within the abdomen. Sternotomy wires are in the midline. Right central venous catheter sheat h is present on the right. IMPRESSION: 1. Nasogastric tube transverses the thorax the tip out of the [id number] within the abdomen. 2. Right central venous catheter sheath. PICC line enters on the right with the tip in the superior v nemo cava region. 3. Mild increase in bibasilar atelectasis. 4. Mild cardiomegaly
[2018-11-28 13:08] LABS: Glucose,Whole Blood 89 mg/dL (75-99)
[2018-11-28] MEDS ORDERED: HEPARIN SODIUM,PORCINE 5,000 UNIT/ML 1 ML VIAL IV ONE (14:15)
[2018-11-28 14:25] LABS: Glucose,Whole Blood 153 mg/dL (75-99)
[2018-11-28] MEDS: AMIODARONE 200 MG TAB PO SCH ×2 (14:45→22:15)
[2018-11-28] MEDS: ATORVASTATIN 40 MG TAB PO SCH (14:45)
[2018-11-28] MEDS: METOPROLOL TARTRATE 25 MG TAB PO SCH ×2 (14:45→22:14)
[2018-11-28 15:08] LABS: Glucose,Whole Blood 149 mg/dL (75-99)
--- NOTE | 2018-11-28 15:16 | PN ---
PROGRESS NOTE We are covering for Dr. Bandar Paul. DATE OF SERVICE: 11/28/2018 The patient is a 58-year-old female who is seen lying in bed, sleeping but does open her eyes to stimuli. The patient remains on Levophed. She is afebrile in no acute distress. PHYSICAL EXAM: Vital signs: Temp 98.7, heart rate 91, respiratory rate is 30, blood pressure is 130/58, O2 saturation is 96% on mechanical ventilator. FiO2 is at 40%. HEENT: Head is normocephalic, atraumatic. Neck is supple. Tracheotomy is intact. Lungs with decreased breath sounds and wheezes upper anterior lobes. Heart S1, S2 heard. Not tachycardic. Regular. Abdomen is firm. Bowel sounds are heard. EXTREMITIES: With 2+ pitting edema bilaterally to upper and lower extremities. Neurologic: Patient does open eyes to stimulus. LABS: White count is 14.4, hemoglobin 7.2, hematocrit 23.6, platelets are 159,000. Sodium is 129, potassium is 4.5, chloride 101, CO2 is 20, anion gap is 8, BUN is 70, creatinine is 3.52, glucose is 135, calcium is 8.1, phosphorus 4.3, magnesium is 1.9. IMAGING: Chest x-ray shows nasogastric tube transverse thoracic tip out of the field of view within the abdomen. Right central venous catheter sheath PICC line enters on the right with the tip in the superior vena cava. Mild increase in bibasilar atelectasis. Mild cardiomegaly. IMPRESSION: 1. Acute on chronic renal failure. 2. Acute hypoxic respiratory failure requiring supplemental oxygen, mechanical ventilation with fluid overload with a component of pneumonia, E coli. 3. Small bilateral pleural effusions. 4. Atrial fibrillation, rate controlled. 5. Ischemic cardiomyopathy. 6. Septic shock. 7. Altered mental status. Metabolic encephalopathy. 8. Deep vein thrombosis of the right lower extremity. 9. Suspect GIV. 10.CKD stage 4, now end-stage renal disease, on hemodialysis. 11.Severe anemia. 12.Non ST elevation myocardial infarction. 13.History of atherosclerotic coronary artery disease and coronary artery bypass grafting. 14.Peripheral vascular disease. 15.Diabetes mellitus type 2. PLAN: Continue current medications which have been reviewed. Patient has a tracheostomy and remains on the mechanical ventilator. Continue account management specialist's recommendations. Continue him on the hemodialysis per Nephrology. Consider starting tube feeds via PEG. Continue through Dobbhoff for now. Continue insulin drip. Continue heparin per Cardiology. Continue pulmonary hygiene, coughing and deep breathing and supportive care. Continue supplemental oxygen to maintain oxygen saturations at 92% or better. Continue nebulizer treatments. Continue GI and DVT prophylaxis and we will follow patient closely with you making further changes as necessary. The patient is being seen and examined covering for Dr. Bandar Paul. I performed a History & Physical Examination of the patient and discussed their management with nurse practitioner. I reviewed the nurse practitioner's note and agree with the documented findings and plan of care. MMODL / IJN: [id number] /
--- NOTE | 2018-11-28 15:25 | PN ---
PROGRESS NOTE Patient is seen for followup of acute kidney injury on top of chronic kidney disease. The patient is currently intubated. She is on the vent. She just had an endoscopy done. Levophed is at about 11 mics. The patient is maintained on TPN. She will have a Dobbhoff tube placed. Therefore, we can switch to tube feedings and discontinue the TPN to avoid excessive fluid overload. Patient has been receiving daily dialysis to help with the fluid overload. EXAMINATION: Today, this morning blood pressure was 127/63. The patient is afebrile. Heart rate about 90 per minute examination of the heart S1, S2. Examination of the lungs bilateral breath sounds are heard. ABDOMEN: Soft. Morbidly obese. Examination of lower extremities shows chronic skin changes. Edema 2+ bilaterally upper and lower extremities. There is discoloration of the toes on both feet. INVENTORY ANALYST exam is not performed. LAB: Show sodium 129, potassium 4.5, BUN 70, serum creatinine 3.5, hemoglobin 7.2 g/dL. ASSESSMENT: 1. Acute kidney injury, currently hemodialysis dependent. Patient is oliguric. She has an indwelling Martinez catheter. She will be dialyzed today. 2. Hyponatremia. Expected improvement with dialysis. However, if the patient remains on the TPN, the sodium will need to be increased. Hopefully, we can discontinue the TPN and switch to oral feeding. 3. Gastrointestinal bleed status post EGD this morning which showed no active bleeding. 4. Acute hypoxic and hypercapnic respiratory failure. 5. Severe fluid overload. PLAN: Continue with daily dialysis and ultrafiltration to help with volume overload. DC TPN once switched to tube feedings and increase sodium in TPN if the patient needs to continue with the TPN. We will plan on dialysis again tomorrow. MMODL / IJN: [id number] /
[2018-11-28] MEDS: INSULIN REGULAR 100 UNIT in SODIUM CHLORIDE 0.9% 100 ML IV SCH (15:26)
--- NOTE | 2018-11-28 15:40 | P.PN ---
Subjective Progress Note Date: 11/28/18 Principal diagnosis: Acute renal failure, altered mental status likely related to acute renal failure , hypotension, severe sepsis, hypertension, A. fib with RVR, episode a wide- complex tachycardia, Right lower extremity venous thrombosis, chronic intermittent thromboembolism, pulmonary hypertension, biventricular failure, acute on chronic systolic heart failure, acute on chronic renal failure is stage IV, small bilateral pleural effusion likely related to heart failure, morbid obesity, suspect sleep disorder breathing and sleep apnea 11/28/2018, patient seen and evaluated examined she is awake opens eyes does follow intermittently simple commands patient remains on full ventilator support unable to wean her from the respirator, vent settings include assist control rate of 16 tidal volume of the 505 of PEEP and the 40% oxygen, peak air pressures are slightly on the higher side, blood pressure remains low requiring low-dose vasopressors with levo fed, patient is being evaluated by nephrology service also for hemodialysis, vascular surgery recommended to start heparin drip IVC filter placement is currently on hold, care plan discussed with the family present at bedside as well as the nursing staff at length critical care time spent 35 minutes 11/20/2018, patient seen eval examined during the rounds patient remains on assist control mode with assist control of 20 breathing 20 tidal volume of 450 PEEP of 5 and 40% oxygen, patient is on 5 mics of levo fed drip, blood pressure ranging from map of 60-65, urine output remains absent, patient over not overnight remains stable no episode of GI bleed or arrhythmia however has been noted, patient does open eyes intermittently does follow simple commands, I have placed patient on CPAP of 5 and pressure support of 5 she was monitor observe for half an hour, her weaning parameters were reviewed with the respiratory labs reviewed medications reviewed, chest x-ray performed earlier this morning reviewed and compared with prior x-ray remains unchanged, the hemoglobin is 7.1, arterial blood gas from earlier this morning reviewed remains stable, after the successful trial patient has been extubated and placed on supplemental oxygen overall doing well, critical care time spent 40 minutes 11/19/2018, patient seen and evaluated examined during the rounds, (late entry note), patient has undergone 2 trials of weaning earlier today, second episode was complicated with tachypnea and tachycardia, patient had a run of wide complex tachycardia however resolved spontaneously cardiovascular services following adjusting the dose of amiodarone, patient is scheduled for next dialysis on Wednesday, patient remains on 5 mics of levo, remains on assist control mode otherwise will repeat the weaning if tolerated well possible extubation in next 24 hours, and labs reviewed medications reviewed care plan discussed with staff, patient does open eyes follow intermittent commands but not consistently 11/18/2018, patient seen eval examined during the rounds patient is arousable currently on 5 mics of levo fed remains on full ventilator support, CPAP was not attempted earlier today for unclear reasons, patient just has been noted to have episode of bradycardia heart rate dropped down into 40s, hemodynamics however remains stable with stable blood pressure, is being planned for hemodialysis later on today, labs reviewed medications reviewed, bradycardia episode appeared to be related to high-dose amiodarone which has been reduced from 400 twice a day to 200 twice a day with plans to hold the dose tonight we' ll recommend up parameters to hold amiodarone if heart rate remains less than 60 -70 continue other supportive care in the meantime we'll do a CPAP and pressure support 5 and 5 and try to get a blood gas if tolerated well will do a CPAP trial for an hour to 2 hours as tolerated 11/17/2018, patient seen eval reexamined during the rounds, patient had the episode of the irregular heartbeat and wide complex tachycardia while undergoing hemodialysis, the dialysis was terminated early yesterday, followed by an another episode while she was undergoing CPAP trial last night, CPAP trial was canceled at bedtime, patient remains on oral amiodarone, patient has been intermittently in and out of sinus rhythm as well as the atrial fibrillation currently patient is on well-controlled ventricular rate, she is sedated with the Ativan as needed Dilaudid is being given and started for pain control, patient is now off of propofol drip, patient is due for hemodialysis as per discussion with the renal services today, radiographic studies reviewed chest x-ray fairly stable, current vent settings include assist control rate of the 20 tidal volume 500 with 5 of PEEP and 40% oxygen had peaked or pressure in mid 30s, patient remains on insulin drip about 11 units, levo fed is down to 5 mics, the stool for C. difficile is negative, labs reviewed medications reviewed care plan discussed with the staff as well as the renal service at length critical care time spent 45 minutes 11/16/2018, patient seen eval examined during the rounds she is still under affect of propofol which has been discontinued and has been resumed though, patient has some loose stool which has been sent for C. difficile, hemodynamic status slightly improved patient is now on 4 mics of levo fed drip, ventilator setting remains as stable, arterial blood gas revealed suggestive of respiratory and metabolic acidosis, care plan discussed with the staff at length , will continue current supportive care and agree with hemodialysis later on today patient is being started on IV Solu-Medrol continue breathing treatment in addition will DC the propofol "patient on morphine and Ativan and set up a protocol for weaning will do CPAP and pressure support trial with 5 and 10 twice a day for one to 2 hours as tolerated blood patient to be more awake now, critical care time spent 35 minutes 11/15/2018, patient seen eval examined during the rounds clinically has been doing well awake and alert levo fed drip is down to 11 mics, ventilator setting remains stable, patient remains on heparin drip, currently patient is assist control rate of 20 breathing 20 tidal volume of 5oo, 40% oxygen and 5 of PEEP, the acral cyanosis essentially unchanged, patient has very minimal urine output , labs reviewed medications reviewed, we'll taper down the propofol drip with that and hemodynamics will improve also can initiate the weaning trial will see if patient can tolerate a trial for half an hour with CPAP 5 and pressure support of 5 11/14/2018, patient seen eval examined during the rounds clinically has been doing essentially unchanged status post hemodialysis 1.5 L of fluid has been removed, labs reviewed medications reviewed care plan discussed, the BUN/ creatinine improved to 44 and 4.9, liver function continued to improve 11/13/2018, patient seen and evaluated examined during the rounds, patient does withdraws to pain and physical stimuli, she is sedated with propofol drip, patient is on 25 mics of propofol if lower down becomes restless less anxious and agitated, patient has been remain on heparin drip tolerating very well no evidence of bleeding has been seen, the acral cyanosis in the upper extremity appears to have improved today however in the lower extremity remains unchanged , patient is also on bicarb drip U fed drip is down to 14 mics which is gradually being titrated patient is on insulin drip 2.5 units an hour for hyperglycemia, her peak airway pressures 33 her vent settings include assist control rate of 20 breathing 20 tidal volume 505 of PEEP and 40% oxygen, her sputum culture results and reports are reviewed no growth has been noted blood cultures no growth so far, patient was able to get the hemodialysis yesterday 1.5 L of fluid has been removed, labs from today reviewed white cell count continue to go down is 10,900 hemoglobin remained stable 8.5, patient is well anticoagulated with IV heparin, platelet count remains stable but however slow decline has as been noted which is being monitored observe his 135, patient is on tube feed tolerating very well slowly been escalated, BUN/creatinine has improved to 38 and 4.1, sodium is 132, LFT continued to improve AST/ALT now in to low thousands, IV amiodarone infusion has a stab patient is now on by mouth amiodarone no new episodes of A. fib RVR or V. tach has been noted, chest x-ray remains stable, critical care time spent 45 minutes 11/12/2018, patient seen eval examined during the rounds clinically patient is slightly improved in terms of laboratory data and hemodynamic support, patient remains sedated with propofol drip currently the dose is down to 40 mics, it is down to 20 mics patient continued to manifest ischemic changes in the toes as well as in the fingertips, bicarb drip is being given to counteract severe profound metabolic peripheral acidosis, she remains on full ventilator support with assist control of 20 tidal volume of 500, PEEP of 5, FiO2 down to 65%, oxygen saturation is 100% as checked with the right ear lobe, patient is now in sinus rhythm has been in A. fib but spontaneously converted patient has been amiodarone IV which is to be switched to oral aspirin cardiovascular services, current infusions include heparin drip tolerating very well no new bleeding has been seen along with levo fed drip 20 mics, propofol drip and bicarb drip, respiratory secretions are minimal, bowel sounds are hypoactive, no evidence of bleeding has been seen patient to be started on tube feed and dialysis is being planned later on today as well as per discussion with the renal services, answers are all negative so far, chest x-ray shows right lower lobe subsegmental atelectasis small effusion which is stable, leukocytosis improved today compared to yesterday, critical care time spent 35 minutes 11/11/2018, patient seen eval examined during the rounds clinically patient remains sedated and intubated, currently patient is on now full ventilator support she is on assist control rate of 20 breathing 20 tidal volume of 505 of PEEP and 75% oxygen, patient remains on heparin drip which is has been started this morning, also on propofol drip 45 mics, levo fed drip is off 24 mics, patient does have been noted to have as a spasm in the upper extremity as well as lower extremity with bluish discoloration, patient has being restarted on heparin drip to optimize the levo fed to contract severe profound metabolic acidosis, reviewed medications reviewed care plan discussed with the staff at length, patient will need a arterial line attempted but unable to cannulate the femoral artery, however able to access the femoral vein a triple-lumen catheter most of the infusions are incompatible with each other, dialysis is not performed due to unstable situation and condition, urine output remains very minimal, Keofeed to be started heparin to be continued monitor hemoglobin closely, critical care time spent 45 minutes including procedure, Patient was intubated last night due to severe tachypnea and tachycardia and intermittent runs of the V. tach along with atrial fibrillation, patient has been initiated amiodarone drip as well, given that ABG could not be obtained venous blood gases are being used 11/10/2018, patient seen eval reexamined during the rounds clinically patient has a not much change from baseline has been transfused 1 unit of packed RBC patient to has been more lethargic but readily arousable arterial blood gas couldn't be obtained a venous blood gas has been performed continued to show respiratory acidosis combined with metabolic acidosis, patient is due for dialysis today also been planned for EGD which has been performed some gastritis has been noted with some white patches suggestive of ischemic changes cannot be excluded for details please refer to EGD note, patient remains on 7 mics of levo fed which is to be titrated down as blood pressure has improved, we will do low-dose bicarb drip as well patient did receive a dose of desmopressin earlier this morning, patient remains on BiPAP 15/10 with the FiO2 to keep saturation over 90-94%, patient remain somnolent and lethargic but readily arousable respond appropriately when awake then goes right back to sleep , patient did receive a dose of Xanax 11/08/2018, patient seen eval reexamined during the rounds clinically patient remains marginal continue require vasopressors currently patient is on 19 mics of levo fed drip, during dialysis patient had episode of the tachyarrhythmia requiring amiodarone now patient after the initial IV boluses back to sinus rhythm, hemodynamic status is overall stable but marginal, urine output remains very low, patient did tolerate the hemodialysis fairly well earlier this morning except the findings as noted to more old bleeding noted it appears to be old blood, patient is currently on desmopressin drip, also has been infused with 1 unit of packed RBC, heparin drip has been on hold since yesterday, vascular surgery has been consulted for evaluation of IVC filter as patient has deep venous thrombosis right lower extremity, sugars continue to be run on the higher side remains on insulin drip, patient is on proton pump inhibitor IV with frequent monitoring with monitoring observation her hemoglobin him to keep hemoglobin over 7 no active bleeding however has been noted by GI services has been consulted as well for GI bleed, Estrace standpoint tolerating BiPAP very well currently patient is on BiPAP with 12 of BiPAP the and 5 EPAP respiratory rate is 22 her spontaneous tidal volumes ranging in mid 400 range, she is on 40 % oxygen, arterial blood gas couldn't be drawn, labs medications and radiographic studies reviewed culture results are reviewed as well no positive cultures been seen patient remains on Zosyn, critical care time spent 35 minutes 11/07/2018, patient seen and evaluated examined during the rounds this morning critical care time spent 40 minutes, patient has removed to the ICU from medical floor as she was hypotensive with poor urine output in addition patient has been more somnolent and lethargic she did have receive a dose of Xanax on the floor, after arrival in ICU patient remains very hypotensive with tachycardia was given multiple fluid boluses to improve the hemodynamics however eventually starting the levo fed drip, patient does have 2 peripheral IVs one of them is not functioning very well, worsening of renal function has been noted the renal services planning to do hemodialysis, patient has very poor peripheral arterial disease unable to obtain ABG in addition to that very poor peripheral pulses are present, patient is arousable opens eyes follow simple commands but remains very anxious and agitated, patient eventually went up to 25 mics of levo fed drip with a systolic blood pressure ranging about 100 210, urine output has been very minimal, given that the lack of ability of IV axis will proceed with a central line however patient needed dialysis port as well will do a trilysis catheter (hemodialysis catheter with extra port), care plan discussed with the vascular surgery as well and renal services planning to do hemodialysis later on today provided hemodynamics remain stable, due to anticipated profound metabolic acidosis patient has been started on bicarb drip , patient is being kept on IV Zosyn heparin has been on hold due to procedures as well as elevated PTT labs reviewed medications reviewed radiographic studies reviewed as well 11/06/2018, patient seen evlauro examined during the rounds clinically patient has a been doing relatively better in terms of shortness of breath and swelling of the lower extremity patient is currently on room air however renal function continued to go up slightly and Lasix dose is being adjusted by renal service labs reviewed medications reviewed for now we'll continue IV heparin hopefully next 24-48 hours we'll switch it to oral anticoagulants 11/05/2018, patient seen romain reexamined during the rounds clinically has been doing relatively better in terms of breathing leg swelling the lower extremity is slightly better patient is on anticoagulation with IV heparin for DVT thrombosis of lower extremity on the right side also probable pulmonary embolism as well Patient presented to the hospital with worsening dyspnea and edema. Patient states she's been getting progressively short of breath over the last 1 week. She initially thought it was asthma but the symptoms did not improve with nebulized treatments. She also noticed edema in her legs. She states she does not take any diuretics at home. She admits to good urine output. No hematuria or dysuria. No vomiting or diarrhea. Oral intake has been fair. Denies use of NSAIDs. Chest CT revealed bilateral pleural effusions. Echocardiogram revealed ejection fraction of 35-40% with severe pulmonary hypertension. Currently maintained on Lasix 40 mg IV twice daily. She has been voiding. No fever or chills. Her duplex ultrasound of the lower extremity came back positive for DVT patient is now being started on IV heparin Objective - Vital Signs Vital signs: Vital Signs Temp 98.7 F 11/28/18 12:00 Pulse 91 11/28/18 13:00 Resp 30 H 11/28/18 13:00 BP 130/58 11/28/18 13:00 Pulse Ox 96 11/28/18 13:00 Intake & Output 11/27/18 11/28/18 11/28/18 18:59 06:59 18:59 Intake Total 2550.932 2354.166 421.258 Output Total 410 235 5 Balance 2140.932 2119.166 416.258 Weight 131 kg 131 kg Intake: IV 1300 825 420 Cefepime 1 gm In Sodium 50 50 Chloride 0.9% 50 ml @ 100 mls/hr IVPB Q24HR [facility] Rx #:[id number] Mvi, Adult No.4 with Vit 560 240 K 10 ml Trace (Conc-1Ml/ Dose) 1 ml In Amino Acid 5%-D15w+Lytes*E* 1,000 ml @ 80 mls/hr IV .BY DURATION [facility] Rx#: [id number] Mvi, Adult No.4 with Vit 880 K 10 ml Trace (Conc-1Ml/ Dose) 1 ml Sodium Acetate 20 meq Potassium Chloride 20 meq Calcium Chloride 0.33 gm In Amino Acid 5%-D15w 1,000 ml @ 80 mls/hr IV .BY DURATION [facility] Rx#:[id number] Sodium Chloride 0.9% 1, 170 165 30 000 ml @ 10 mls/hr IV . Q24H [facility] Rx#:[id number] metroNIDAZOLE-NS PMX 500 200 100 100 mg In Saline 1 100ml.bag @ 100 mls/hr IVPB Q8HR [facility] Rx#:[id number] Intake, IV Titration 8242.416 5434.166 1.258 Amount Amino Acid 5%-D15w+Lytes* 400 E* 1,000 ml @ 80 mls/hr IV .BY DURATION [facility] Rx#: [id number] Heparin Sod,Pork in 0.45% 60.534 NaCl 25,000 unit In 0.45 % NaCl 1 250ml.bag @ 8.45 UNITS/KG/HR 9.97 mls/hr IV .Q24H [facility] Rx#: [id number] Insulin Regular 100 unit 139.858 99.742 1.258 In Sodium Chloride 0.9% 100 ml @ Per Protocol IV .Q0M [facility] Rx#:[id number] Mvi, Adult No.4 with Vit 1011 1011 K 10 ml Trace (Conc-1Ml/ Dose) 1 ml In Amino Acid 5%-D15w+Lytes*E* 1,000 ml @ 80 mls/hr IV .BY DURATION [facility] Rx#: [id number] Norepinephrine 32 mg In 9.54 18.424 Sodium Chloride 0.9% 250 ml @ 0.1 MCG/KG/MIN 6 mls /hr IV .Q24H [facility] Rx#: [id number] Tube Feeding 30 Output: Urine 10 35 5 Stool 400 200 Other: Voiding Method Indwelling Catheter Indwelling Catheter Indwelling Catheter # Voids 0 0 # Bowel Movements 1 1 ABP, PAP, CO, CI - Last Documented Arterial Blood Pressure 126/58 - Exam - Constitutional General appearance: disheveled, no distress, morbidly obese, comfortable for ventilator support- Neck Neck: normal ROM Carotids: bilateral: upstroke normal Thyroid: bilateral: normal size - Respiratory Respiratory: bilateral: CTA, few basal rales, negative: diminished, dullness - Cardiovascular Rhythm: regular Heart sounds: normal: S1, S2 - Integumentary Integumentary: normal turgor Abdomen soft - Neurologic Neurologic: CNII-XII intact, opens eyes does make eye contact but remains nonverbal and noncommunicative - Musculoskeletal Musculoskeletal: the cyanosis in the fingertips have appeared to improve, however in the ischemic changes on the toes remains unchanged - Psychiatric Psychiatric: Awake does make eye contact - Labs CBC & Chem 7: 11/28/18 04:50 11/28/18 04:50 Labs: Abnormal Lab Results - Last 24 Hours (Table) 11/27/18 11/27/18 11/27/18 Range/Units 15:59 18:14 19:50 WBC (3.8-10.6) k/uL RBC (3.80-5.40) m/uL Hgb (11.4-16.0) gm/dL Hct (34.0-46.0) % MCHC (31.0-37.0) g/dL RDW (11.5-15.5) % Neutrophils # (1.3-7.7) k/uL ABG pH (7.35-7.45) ABG pCO2 (35-45) mmHg ABG pO2 (83-108) mmHg ABG HCO3 (21-25) mmol/L ABG O2 Saturation (94-97) % Sodium (137-145) mmol/L Carbon Dioxide (22-30) mmol/L BUN (7-17) mg/dL Creatinine (0.52-1.04) mg/dL Glucose (74-99) mg/dL POC Glucose (mg/dL) 163 H 189 H 211 H (75-99) mg/dL Calcium (8.4-10.2) mg/dL 11/27/18 11/27/18 11/27/18 Range/Units 21:27 22:13 23:08 WBC (3.8-10.6) k/uL RBC (3.80-5.40) m/uL Hgb (11.4-16.0) gm/dL Hct (34.0-46.0) % MCHC (31.0-37.0) g/dL RDW (11.5-15.5) % Neutrophils # (1.3-7.7) k/uL ABG pH (7.35-7.45) ABG pCO2 (35-45) mmHg ABG pO2 (83-108) mmHg ABG HCO3 (21-25) mmol/L ABG O2 Saturation (94-97) % Sodium (137-145) mmol/L Carbon Dioxide (22-30) mmol/L BUN (7-17) mg/dL Creatinine (0.52-1.04) mg/dL Glucose (74-99) mg/dL POC Glucose (mg/dL) 202 H 198 H 162 H (75-99) mg/dL Calcium (8.4-10.2) mg/dL 11/28/18 11/28/18 11/28/18 Range/Units 00:11 02:05 03:07 WBC (3.8-10.6) k/uL RBC (3.80-5.40) m/uL Hgb (11.4-16.0) gm/dL Hct (34.0-46.0) % MCHC (31.0-37.0) g/dL RDW (11.5-15.5) % Neutrophils # (1.3-7.7) k/uL ABG pH (7.35-7.45) ABG pCO2 (35-45) mmHg ABG pO2 (83-108) mmHg ABG HCO3 (21-25) mmol/L ABG O2 Saturation (94-97) % Sodium (137-145) mmol/L Carbon Dioxide (22-30) mmol/L BUN (7-17) mg/dL Creatinine (0.52-1.04) mg/dL Glucose (74-99) mg/dL POC Glucose (mg/dL) 171 H 128 H 158 H (75-99) mg/dL Calcium (8.4-10.2) mg/dL 11/28/18 11/28/18 11/28/18 Range/Units 04:27 04:32 04:50 WBC (3.8-10.6) k/uL RBC (3.80-5.40) m/uL Hgb (11.4-16.0) gm/dL Hct (34.0-46.0) % MCHC (31.0-37.0) g/dL RDW (11.5-15.5) % Neutrophils # (1.3-7.7) k/uL ABG pH 7.22 L (7.35-7.45) ABG pCO2 50 H (35-45) mmHg ABG pO2 120 H (83-108) mmHg ABG HCO3 20 L (21-25) mmol/L ABG O2 Saturation 99.1 H (94-97) % Sodium 129 L (137-145) mmol/L Carbon Dioxide 20 L (22-30) mmol/L BUN 70 H (7-17) mg/dL Creatinine 3.52 H (0.52-1.04) mg/dL Glucose 135 H (74-99) mg/dL POC Glucose (mg/dL) 155 H (75-99) mg/dL Calcium 8.1 L (8.4-10.2) mg/dL 11/28/18 11/28/18 11/28/18 Range/Units 04:50 06:00 10:01 WBC 14.4 H (3.8-10.6) k/uL RBC 2.37 L (3.80-5.40) m/uL Hgb 7.2 L (11.4-16.0) gm/dL Hct 23.6 L (34.0-46.0) % MCHC 30.3 L (31.0-37.0) g/dL RDW 19.3 H (11.5-15.5) % Neutrophils # 11.7 H (1.3-7.7) k/uL ABG pH (7.35-7.45) ABG pCO2 (35-45) mmHg ABG pO2 (83-108) mmHg ABG HCO3 (21-25) mmol/L ABG O2 Saturation (94-97) % Sodium (137-145) mmol/L Carbon Dioxide (22-30) mmol/L BUN (7-17) mg/dL Creatinine (0.52-1.04) mg/dL Glucose (74-99) mg/dL POC Glucose (mg/dL) 157 H 144 H (75-99) mg/dL Calcium (8.4-10.2) mg/dL 11/28/18 11/28/18 11/28/18 Range/Units 11:10 11:51 14:13 WBC (3.8-10.6) k/uL RBC (3.80-5.40) m/uL Hgb (11.4-16.0) gm/dL Hct (34.0-46.0) % MCHC (31.0-37.0) g/dL RDW (11.5-15.5) % Neutrophils # (1.3-7.7) k/uL ABG pH (7.35-7.45) ABG pCO2 (35-45) mmHg ABG pO2 (83-108) mmHg ABG HCO3 (21-25) mmol/L ABG O2 Saturation (94-97) % Sodium (137-145) mmol/L Carbon Dioxide (22-30) mmol/L BUN (7-17) mg/dL Creatinine (0.52-1.04) mg/dL Glucose (74-99) mg/dL POC Glucose (mg/dL) 136 H 115 H 153 H (75-99) mg/dL Calcium (8.4-10.2) mg/dL 11/28/18 Range/Units 14:56 WBC (3.8-10.6) k/uL RBC (3.80-5.40) m/uL Hgb (11.4-16.0) gm/dL Hct (34.0-46.0) % MCHC (31.0-37.0) g/dL RDW (11.5-15.5) % Neutrophils # (1.3-7.7) k/uL ABG pH (7.35-7.45) ABG pCO2 (35-45) mmHg ABG pO2 (83-108) mmHg ABG HCO3 (21-25) mmol/L ABG O2 Saturation (94-97) % Sodium (137-145) mmol/L Carbon Dioxide (22-30) mmol/L BUN (7-17) mg/dL Creatinine (0.52-1.04) mg/dL Glucose (74-99) mg/dL POC Glucose (mg/dL) 149 H (75-99) mg/dL Calcium (8.4-10.2) mg/dL Microbiology - Last 24 Hours (Table) 11/21/18 10:20 Blood Culture - Final Blood No Growth after 144 hours Assessment and Plan Assessment: Acute respiratory failure likely multifactorial successfully weaned and extubated Altered mental status and confusion overall remains unchanged likely related to multiple comorbidities and pathologies Intermittent episodes of wide complex tachycardia, amiodarone is being adjusted as noted above Acute on chronic renal failure and anuric, on hemodialysis Runs of the atrial fibrillation and tachyarrhythmia and wide complex tachycardia , now patient is back in sinus rhythm, amiodarone has been oral Acute respiratory failure multifactorial due to profound metabolic acidosis along with arrhythmia and congestive heart failure likely biventricular failure and pulmonary embolism Severe sepsis on broad-spectrum antibiotics, possible right lower lobe pneumonia cannot be excluded less likely aspiration related as patient has a good gag flex GI bleed of unclear source status post blood transfusion, hemoglobin has been stable now no evidence of active bleeding has been seen on IV heparin Altered mental status and metabolic encephalopathy likely multifactorial related to renal failure Deep venous thrombosis of right lower extremity and possible pulmonary embolism 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 Small bilateral pleural effusion more so on the right side compared to left side Acute blood loss anemia Non-STEMI Plan: Continue intermittent pain medications avoid benzodiazepine Successfully weaned and extubated Anticoagulation currently is being continued in the form of IV heparin, tolerating it fairly well We will defer placement of IVC filter to vascular surgery Status post PICC line by IR Continue hemodialysis as tolerated per renal service Blood transfusion as needed keep hemoglobin over 7 Optimize therapy for heart failure Monitor renal functions closely Further recommendations pending plan of care as per clinical response of the patient Taper levo fed drip as tolerated We'll continue to taper down the pressors as tolerated Continue to hold tube feed , speech to do swallow evaluation once more stable PT OT evaluation Time with Patient: Greater than 30
[2018-11-28 16:17] LABS: INR 0.9 (<1.2); Partial Thromboplastin Time 24.3 sec (22.0-30.0); Prothrombin Time 9.9 sec (9.0-12.0)
[2018-11-28 16:26] LABS: Anisocytosis Slight; Basophils % (A) 0 %; Eosinophils % (A) 0 %; HCT 23.5 % (34.0-46.0); Hypochromasia Marked; Lymphocytes # (A) 0.7 k/uL (1.0-4.8); Lymphocytes % (A) 5 %; MCH 30.2 pg (25.0-35.0); MCHC 29.8 g/dL (31.0-37.0); MCV 101.3 fL (80.0-100.0); Macrocytosis Moderate; Mean Platelet Volume 8.4; Monocytes # (A) 0.8 k/uL (0-1.0); Monocytes % (A) 5 %; Neutrophils # (A) 13.2 k/uL (1.3-7.7); Neutrophils % (A) 87 %; Platelet Count 198 k/uL (150-450); Poikilocytosis Moderate; RBC 2.33 m/uL (3.80-5.40); RDW 19.4 % (11.5-15.5); WBC 15.3 k/uL (3.8-10.6)
[2018-11-28 16:29] LABS: Glucose,Whole Blood 173 mg/dL (75-99)
[2018-11-28 17:10] LABS: Glucose,Whole Blood 163 mg/dL (75-99)
[2018-11-28 18:28] LABS: Glucose,Whole Blood 154 mg/dL (75-99)
[2018-11-28] MEDS: HEPARIN SOD,PORK IN 0.45% NACL 25,000 UNIT in 0.45% NACL 1 250ML.BAG IV SCH ×2 (18:47→20:30)
[2018-11-28 19:18] LABS: Glucose,Whole Blood 146 mg/dL (75-99)
[2018-11-28] MEDS: NOREPINEPHRINE 32 MG in SODIUM CHLORIDE 0.9% 250 ML IV SCH (20:24)
[2018-11-28 22:35] LABS: Glucose,Whole Blood 126 mg/dL (75-99)
[2018-11-28 23:06] LABS: Glucose,Whole Blood 98 mg/dL (75-99)
[2018-11-29] MEDS: metroNIDAZOLE-NS PMX 500 MG in SALINE 1 100ML.BAG IVPB SCH ×3 (00:04→16:31)
[2018-11-29 00:19] LABS: Glucose,Whole Blood 137 mg/dL (75-99)
[2018-11-29] MEDS: INSULIN REGULAR 100 UNIT in SODIUM CHLORIDE 0.9% 100 ML IV SCH ×2 (00:39→12:30)
[2018-11-29 02:11] LABS: Glucose,Whole Blood 182 mg/dL (75-99)
[2018-11-29] MEDS: NOREPINEPHRINE 32 MG in SODIUM CHLORIDE 0.9% 250 ML IV SCH (02:20)
[2018-11-29 03:00] LABS: Glucose,Whole Blood 182 mg/dL (75-99)
[2018-11-29] MEDS: HYDROmorphone 0.5 MG/0.5 ML SYRINGE IVP PRN ×3 (04:07→13:37)
[2018-11-29] MEDS: 1: MVI, ADULT NO.4 WITH VIT K 10 ML, TRACE (CONC-1ML/DOSE) 1 ML in AMINO ACID 5%-D15W+LY IV SCH ×3 (04:10)
[2018-11-29 04:36] LABS: Glucose,Whole Blood 148 mg/dL (75-99)
[2018-11-29 04:43] LABS: Anisocytosis Moderate; HCT 22.9 % (34.0-46.0); Hypochromasia Marked; MCH 30.2 pg (25.0-35.0); MCHC 29.9 g/dL (31.0-37.0); MCV 100.8 fL (80.0-100.0); Macrocytosis Moderate; Mean Platelet Volume 8.2; Platelet Count 148 k/uL (150-450); Poikilocytosis Moderate; RBC 2.27 m/uL (3.80-5.40); RDW 20.1 % (11.5-15.5)
[2018-11-29 04:51] LABS: HGB 6.8 gm/dL (11.4-16.0)
[2018-11-29] MEDS: SODIUM CHLORIDE 0.9% 1,000 ML IV SCH (05:02)
[2018-11-29 05:30] LABS: Glucose,Whole Blood 137 mg/dL (75-99)
[2018-11-29 05:33] LABS: Ionized Calcium 4.9 mg/dL (4.5-5.3)
[2018-11-29 05:48] LABS: Magnesium 1.9 mg/dL (1.6-2.3); Phosphorus 4.6 mg/dL (2.5-4.5); Potassium 4.4 mmol/L (3.5-5.1)
--- NOTE | 2018-11-29 05:50 | PN ---
PROGRESS NOTE DATE OF SERVICE: 11/28/2018. REASON FOR FOLLOWUP: Aspiration pneumonia. INTERVAL HISTORY: The patient is afebrile. The patient is hemodynamically stable. Did have currently at very low dose of the Levophed. Patient is status post EGD with no active source of bleeding. Apparently started back on heparin for her DVT with no plan for a [place] filter placement. She remains to be on the vent and was unable to provide any history. PHYSICAL EXAMINATION: On examination, blood pressure 136/51 with a pulse of 78, temperature 97.5. She is 100% on 40% FiO2. General description is a middle-aged female lying in bed in no distress. RESPIRATORY SYSTEM: Unlabored breathing with decreased breath sounds at the bases. No wheeze. HEART: S1, S2. Regular rate and rhythm. ABDOMEN: Soft. Mildly distended. LABS: Hemoglobin is 7, white count 15.3, BUN of 70, creatinine 3.52. DIAGNOSTIC IMPRESSION AND PLAN: Patient with acute respiratory failure which is likely multifactorial status post trach in this patient who had possible component of aspiration pneumonia. The patient is currently on Rocephin and Flagyl. Will continue for now while waiting for her condition to stabilize. Continue supportive care. MMODL / IJN: [id number] /
[2018-11-29 06:23] LABS: Band Neutrophils % 5 %; Eosinophils # (M) 0.12 k/uL (0-0.7); Lymphocytes # (M) 2.19 k/uL (1.0-4.8); Monocytes # (M) 0.46 k/uL (0-1.0); Neutrophils % (M) 72 %; Nucleated Red Blood Cells 2 /100 WBC (0-0); Total Cells Counted 200; WBC 11.5 k/uL (3.8-10.6)
[2018-11-29 06:24] LABS: Large Platelets Present
[2018-11-29 06:27] LABS: Polychromasia Present
[2018-11-29 07:18] LABS: Glucose,Whole Blood 139 mg/dL (75-99)
[2018-11-29] MEDS: ALBUTEROL NEBULIZED 2.5 MG/3 ML INHALATION PRN ×3 (08:19→19:42)
[2018-11-29 08:29] LABS: Glucose,Whole Blood 140 mg/dL (75-99)
--- NOTE | 2018-11-29 08:31 | XR ---
EXAMINATION TYPE: XR chest 1V portable DATE OF EXAM: 11/29/2018 Comparison: 11/28/2018 Clinical History: 58-year-old female mechanically vented Findings: Tracheostomy cannula is present. NG tube is present but the tip is obscured and not evaluated. Right IJ sheath remains in place. Right PICC tip is also obscured. Median sternotomy wires are present. Hea rt borderline in size. Diffuse interstitial prominence. Hazy bibasilar opacities appear slightly incr eased. Impression: 1. Slight increased small bilateral pleural effusions with adjacent atelectasis and/or consolidation. 2. Interstitium is also slightly worsened. Correlate for mild pulmonary vascular congestion.
--- NOTE | 2018-11-29 09:00 | PN ---
PROGRESS NOTE Mrs. Monahan is a 58-year-old female who presented with progressive abdominal discomfort and respiratory failure. She has history of coronary artery disease, status post coronary artery bypass grafting, history of severe peripheral vascular disease. She remains intubated and sedated. She is on norepinephrine. She continues to be in atrial fibrillation with controlled ventricular response and ventricular ectopic activity. She is on IV heparin. She continues otherwise to be on amiodarone 200 mg twice a day, Lipitor 40 mg daily, and metoprolol 25 mg twice a day. PHYSICAL EXAMINATION: Blood pressure 130/40 with the heart rate in the 90s. LUNGS: Clear anteriorly. HEART: Irregular, irregular, S1, S2. No S3 with a systolic murmur. ABDOMEN: Soft, obese, no clear organomegaly. EXTREMITIES: +2 edema with gangrenous changes of the toes and the fingers. LAB DATA: Lab data revealed a BUN and creatinine 66 and 2.98. Hemoglobin of 6.8. White blood cell of 11.5. Magnesium 1.9. Potassium 4.4. IMPRESSION: 1. Respiratory failure with a combination of fluid overload and possible aspiration pneumonia. 2. Status post coronary artery bypass grafting. 3. Ischemic cardiomyopathy. 4. Persistent atrial fibrillation. 5. Peripheral vascular disease. 6. End-stage renal disease. 7. Diabetes mellitus. RECOMMENDATION: We will continue supportive care. From the cardiac standpoint, there is no active issues at this time. Unfortunately, the prognosis remains quite poor. We will see her on an as-needed basis. Please feel free to call us for any question. MMODL / IJN: [id number] /
[2018-11-29 10:27] LABS: Glucose,Whole Blood 81 mg/dL (75-99)
[2018-11-29 10:27] LABS: Glucose,Whole Blood 172 mg/dL (75-99)
--- NOTE | 2018-11-29 10:37 | P.PN ---
Subjective Progress Note Date: 11/29/18 HISTORY OF PRESENT ILLNESS: Patient examined at the bedside. She remains in ICU. Patient underwent EGD yesterday which did not reveal evidence of upper GI bleed. Patients hemoglobin is 6.8, down from 7.0 yesterday. She is scheduled to receive 1 unit RBCs PHYSICAL EXAM: VITAL SIGNS: Currently stable. GENERAL: Well-developed in no acute distress. HEENT: Trach noted. No sclera icterus. Extraocular movements grossly intact. Moist buccal mucosa. Head is atraumatic, normocephalic. No nasal drainage. NECK: Supple without lymphadenopathy. CHEST: Non-labored respirations and equal bilateral excursions. CARDIOVASCULAR: Irregular rhythm. Palpable 2+ radial pulses. ABDOMEN: Soft. Positive bowel sounds. MUSCULOSKELETAL: No clubbing, cyanosis or edema. NEUROLOGIC: No focal or lateralizing signs. Cranial nerves II through XII grossly intact. PSYCH: Appropriate affect. Alert and oriented to person, place and time. SKIN: Well perfused. Good skin turgor. ASSESSMENT: 1. Anemia, s/p EGD which was negative for upper GI bleed PLAN: 1. Transfusions to keep hemoglobin greater than 7.0 2. Continue tube feedings 3. No plans for any additional interventions at this time Nurse practitioner note has been reviewed by physician. Signing provider agrees with the documented findings, assessment, and plan of care. Objective - Vital Signs Vital signs: Vital Signs Temp 97.8 F 11/29/18 09:43 Pulse 95 11/29/18 09:43 Resp 20 11/29/18 09:43 BP 108/57 11/29/18 09:43 Pulse Ox 96 11/29/18 09:03 Intake & Output 11/28/18 11/29/18 11/29/18 18:59 06:59 18:59 Intake Total 0551.818 9413.441 203.280 Output Total 205 410 10 Balance 1716.541 963.441 193.280 Weight 131 kg 132 kg Intake: IV 780 910 90 Cefepime 1 gm In Sodium 50 Chloride 0.9% 50 ml @ 100 mls/hr IVPB Q24HR [facility] Rx #:[id number] Mvi, Adult No.4 with Vit 560 800 80 K 10 ml Trace (Conc-1Ml/ Dose) 1 ml In Amino Acid 5%-D15w+Lytes*E* 1,000 ml @ 80 mls/hr IV .BY DURATION [facility] Rx#: [id number] Sodium Chloride 0.9% 1, 70 110 10 000 ml @ 10 mls/hr IV . Q24H [facility] Rx#:[id number] metroNIDAZOLE-NS PMX 500 100 mg In Saline 1 100ml.bag @ 100 mls/hr IVPB Q8HR [facility] Rx#:[id number] Intake, IV Titration 1131.541 283.441 113.280 Amount Heparin Sod,Pork in 0.45% 69.167 61.623 NaCl 25,000 unit In 0.45 % NaCl 1 250ml.bag @ 7. 634 UNITS/KG/HR 10 mls/hr IV .Q24H [facility] Rx#: [id number] Insulin Regular 100 unit 35.941 85.8 In Sodium Chloride 0.9% 100 ml @ Per Protocol IV .Q0M [facility] Rx#:[id number] Mvi, Adult No.4 with Vit 1011 K 10 ml Trace (Conc-1Ml/ Dose) 1 ml In Amino Acid 5%-D15w+Lytes*E* 1,000 ml @ 80 mls/hr IV .BY DURATION [facility] Rx#: [id number] Norepinephrine 32 mg In 84.6 128.474 51.657 Sodium Chloride 0.9% 250 ml @ 0.1 MCG/KG/MIN 6 mls /hr IV .Q24H [facility] Rx#: [id number] Tube Feeding 10 180 Blood Product 0 Rc As-3 Unit 0 [id number] Output: Urine 5 10 10 Stool 200 400 Other: Voiding Method Indwelling Catheter Indwelling Catheter # Voids 0 ABP, PAP, CO, CI - Last Documented Arterial Blood Pressure 118/62 - Labs CBC & Chem 7: 11/29/18 04:17 11/29/18 04:17 Labs: Abnormal Lab Results - Last 24 Hours (Table) 11/23/18 11/26/18 11/28/18 Range/Units 19:07 09:20 11:10 WBC (3.8-10.6) k/uL RBC (3.80-5.40) m/uL Hgb (11.4-16.0) gm/dL Hct (34.0-46.0) % MCV (80.0-100.0) fL MCHC (31.0-37.0) g/dL RDW (11.5-15.5) % Plt Count (150-450) k/uL Neutrophils # (1.3-7.7) k/uL Neutrophils # (Manual) (1.3-7.7) k/uL Lymphocytes # (1.0-4.8) k/uL Nucleated RBCs (0-0) /100 WBC APTT (22.0-30.0) sec Sodium (137-145) mmol/L Carbon Dioxide (22-30) mmol/L BUN (7-17) mg/dL Creatinine (0.52-1.04) mg/dL Glucose (74-99) mg/dL POC Glucose (mg/dL) 172 H 136 H (75-99) mg/dL Calcium (8.4-10.2) mg/dL Phosphorus (2.5-4.5) mg/dL Crossmatch See Detail 11/28/18 11/28/18 11/28/18 Range/Units 11:51 14:10 14:13 WBC 15.3 H (3.8-10.6) k/uL RBC 2.33 L (3.80-5.40) m/uL Hgb 7.0 L (11.4-16.0) gm/dL Hct 23.5 L (34.0-46.0) % MCV 101.3 H (80.0-100.0) fL MCHC 29.8 L (31.0-37.0) g/dL RDW 19.4 H (11.5-15.5) % Plt Count (150-450) k/uL Neutrophils # 13.2 H (1.3-7.7) k/uL Neutrophils # (Manual) (1.3-7.7) k/uL Lymphocytes # 0.7 L (1.0-4.8) k/uL Nucleated RBCs (0-0) /100 WBC APTT (22.0-30.0) sec Sodium (137-145) mmol/L Carbon Dioxide (22-30) mmol/L BUN (7-17) mg/dL Creatinine (0.52-1.04) mg/dL Glucose (74-99) mg/dL POC Glucose (mg/dL) 115 H 153 H (75-99) mg/dL Calcium (8.4-10.2) mg/dL Phosphorus (2.5-4.5) mg/dL Crossmatch 11/28/18 11/28/18 11/28/18 Range/Units 14:56 16:18 16:59 WBC (3.8-10.6) k/uL RBC (3.80-5.40) m/uL Hgb (11.4-16.0) gm/dL Hct (34.0-46.0) % MCV (80.0-100.0) fL MCHC (31.0-37.0) g/dL RDW (11.5-15.5) % Plt Count (150-450) k/uL Neutrophils # (1.3-7.7) k/uL Neutrophils # (Manual) (1.3-7.7) k/uL Lymphocytes # (1.0-4.8) k/uL Nucleated RBCs (0-0) /100 WBC APTT (22.0-30.0) sec Sodium (137-145) mmol/L Carbon Dioxide (22-30) mmol/L BUN (7-17) mg/dL Creatinine (0.52-1.04) mg/dL Glucose (74-99) mg/dL POC Glucose (mg/dL) 149 H 173 H 163 H (75-99) mg/dL Calcium (8.4-10.2) mg/dL Phosphorus (2.5-4.5) mg/dL Crossmatch 11/28/18 11/28/18 11/28/18 Range/Units 18:17 19:06 22:23 WBC (3.8-10.6) k/uL RBC (3.80-5.40) m/uL Hgb (11.4-16.0) gm/dL Hct (34.0-46.0) % MCV (80.0-100.0) fL MCHC (31.0-37.0) g/dL RDW (11.5-15.5) % Plt Count (150-450) k/uL Neutrophils # (1.3-7.7) k/uL Neutrophils # (Manual) (1.3-7.7) k/uL Lymphocytes # (1.0-4.8) k/uL Nucleated RBCs (0-0) /100 WBC APTT (22.0-30.0) sec Sodium (137-145) mmol/L Carbon Dioxide (22-30) mmol/L BUN (7-17) mg/dL Creatinine (0.52-1.04) mg/dL Glucose (74-99) mg/dL POC Glucose (mg/dL) 154 H 146 H 126 H (75-99) mg/dL Calcium (8.4-10.2) mg/dL Phosphorus (2.5-4.5) mg/dL Crossmatch 11/29/18 11/29/18 11/29/18 Range/Units 00:01 00:08 01:59 WBC (3.8-10.6) k/uL RBC (3.80-5.40) m/uL Hgb (11.4-16.0) gm/dL Hct (34.0-46.0) % MCV (80.0-100.0) fL MCHC (31.0-37.0) g/dL RDW (11.5-15.5) % Plt Count (150-450) k/uL Neutrophils # (1.3-7.7) k/uL Neutrophils # (Manual) (1.3-7.7) k/uL Lymphocytes # (1.0-4.8) k/uL Nucleated RBCs (0-0) /100 WBC APTT 94.2 H (22.0-30.0) sec Sodium (137-145) mmol/L Carbon Dioxide (22-30) mmol/L BUN (7-17) mg/dL Creatinine (0.52-1.04) mg/dL Glucose (74-99) mg/dL POC Glucose (mg/dL) 137 H 182 H (75-99) mg/dL Calcium (8.4-10.2) mg/dL Phosphorus (2.5-4.5) mg/dL Crossmatch 11/29/18 11/29/18 11/29/18 Range/Units 02:49 04:17 04:17 WBC 11.5 H (3.8-10.6) k/uL RBC 2.27 L (3.80-5.40) m/uL Hgb 6.8 L* (11.4-16.0) gm/dL Hct 22.9 L (34.0-46.0) % MCV 100.8 H (80.0-100.0) fL MCHC 29.9 L (31.0-37.0) g/dL RDW 20.1 H (11.5-15.5) % Plt Count 148 L (150-450) k/uL Neutrophils # (1.3-7.7) k/uL Neutrophils # (Manual) 8.80 H (1.3-7.7) k/uL Lymphocytes # (1.0-4.8) k/uL Nucleated RBCs 2 H (0-0) /100 WBC APTT (22.0-30.0) sec Sodium 128 L (137-145) mmol/L Carbon Dioxide 20 L (22-30) mmol/L BUN 66 H (7-17) mg/dL Creatinine 2.98 H (0.52-1.04) mg/dL Glucose 134 H (74-99) mg/dL POC Glucose (mg/dL) 182 H (75-99) mg/dL Calcium 8.0 L (8.4-10.2) mg/dL Phosphorus 4.6 H (2.5-4.5) mg/dL Crossmatch 11/29/18 11/29/18 11/29/18 Range/Units 04:24 05:19 07:06 WBC (3.8-10.6) k/uL RBC (3.80-5.40) m/uL Hgb (11.4-16.0) gm/dL Hct (34.0-46.0) % MCV (80.0-100.0) fL MCHC (31.0-37.0) g/dL RDW (11.5-15.5) % Plt Count (150-450) k/uL Neutrophils # (1.3-7.7) k/uL Neutrophils # (Manual) (1.3-7.7) k/uL Lymphocytes # (1.0-4.8) k/uL Nucleated RBCs (0-0) /100 WBC APTT (22.0-30.0) sec Sodium (137-145) mmol/L Carbon Dioxide (22-30) mmol/L BUN (7-17) mg/dL Creatinine (0.52-1.04) mg/dL Glucose (74-99) mg/dL POC Glucose (mg/dL) 148 H 137 H 139 H (75-99) mg/dL Calcium (8.4-10.2) mg/dL Phosphorus (2.5-4.5) mg/dL Crossmatch 11/29/18 11/29/18 Range/Units 08:15 08:17 WBC (3.8-10.6) k/uL RBC (3.80-5.40) m/uL Hgb (11.4-16.0) gm/dL Hct (34.0-46.0) % MCV (80.0-100.0) fL MCHC (31.0-37.0) g/dL RDW (11.5-15.5) % Plt Count (150-450) k/uL Neutrophils # (1.3-7.7) k/uL Neutrophils # (Manual) (1.3-7.7) k/uL Lymphocytes # (1.0-4.8) k/uL Nucleated RBCs (0-0) /100 WBC APTT 40.0 H (22.0-30.0) sec Sodium (137-145) mmol/L Carbon Dioxide (22-30) mmol/L BUN (7-17) mg/dL Creatinine (0.52-1.04) mg/dL Glucose (74-99) mg/dL POC Glucose (mg/dL) 140 H (75-99) mg/dL Calcium (8.4-10.2) mg/dL Phosphorus (2.5-4.5) mg/dL Crossmatch
[2018-11-29] MEDS: CEFEPIME 1 GM in SODIUM CHLORIDE 0.9% 50 ML IVPB SCH (11:22)
[2018-11-29] MEDS: PANTOPRAZOLE 40 MG/10 ML VIAL IVP SCH ×2 (11:23→20:51)
[2018-11-29 11:44] LABS: Glucose,Whole Blood 135 mg/dL (75-99)
--- NOTE | 2018-11-29 11:48 | P.PN ---
Subjective Progress Note Date: 11/29/18 11/21/18- patient is being seen examined and evaluated today on rounds while covering for Dr. Bandar Paul. This patient is admitted to the hospital with altered mental status likely related to the acute renal failure, hypotension, severe sepsis, hypertension, A. fib with RVR, right lower extremity venous thrombosis, chronic intermittent thromboembolism, pulmonary hypertension, biventricular failure, acute on chronic systolic heart failure, acute on chronic renal failure stage IV, small bilateral pleural effusions, morbid obesity. The patient is on propofol currently on hold to assess mentation. And has been on a heparin drip, levophed, and insulin drip as well. The patient was extubated yesterday and did require reintubation overnight. She is on mechanical ventilation assist control mode with a respiratory rate of 20, tidal volume of 500, FiO2 100% and a PEEP of 5. Hemodialysis is currently on hold per nursing staff.. Systems Testing Laboratory Technician is following this patient closely as well. Hemoglobin is down to 6.4 today. Troponin is elevated at 7.810 cardiology is following the patient closely. All labs and reports have been reviewed. Prognosis is guarded. 11/22/18- patient is being seen examined and evaluated today while covering for Dr. Bandar Paul. She still remains critically ill and in shock. She was unable to go for dialysis yesterday as she was not stable enough. She continues to receive her fluid she also received 2 units of packed red blood cells and her hemoglobin has improved to 8 today. She still continues to require vasopressors at 2 mics. She is noted to have dark blue digits and toes which are cold to the touch however Doppler pulses are able to be obtained. She has a very poor prognosis. TPN may potentially be started per her nurse recruiter. 11/23/18- patient is being seen examined and evaluated today while covering for Dr. Bandar Paul. She continues to be critically ill, and on mechanical ventilation. Chest x-ray from this morning is unchanged from previous day. Patient was started on TPN. Digits and toes continue to have blue/purple appearance and cold and clammy to the touch with some possible necrotic changes which is continuing to be monitored. She continues on IV heparin, Levophed, propofol, and insulin drips. 11/24/18- patient is being seen examined and evaluated today while covering for Dr. Bandar Paul. The patient continues in the intensive care unit and is critical. Currently she is on spontaneous breathing trials. Her sedation has been weaned off. She is able to follow somewhat simple commands. She still has required Levophed for blood pressure support. Urine output has been ill. She did have dialysis yesterday and is supposed to have dialysis again today. She continues to receive TPN for nutrition., Insulin drip for blood sugar control. Continues with digits and toes being blue/purple appearance and cold and clammy to the touch, pulses obtainable by Doppler only. All labs and reports reviewed. 11/25/18- patient is being seen examined and evaluated today on rounds with covering for Dr. Bandar Paul. The patient is scheduled to go for a tracheostomy placement today with surgical services. She was unable to wean sufficiently with her spontaneous breathing trials yesterday. The patient also got dialysis today. Heparin is on hold for procedure. Hemoglobin is 7.2. Patient does have some improvement in her digits and toes and they are less blue /purple in appearance and less cold and clammy today. Pulse is still obtainable with Doppler. All labs and reports have been 11/26/2018: Patient seen and examined in the intensive care unit covering for Dr. Bandar Samuels. The patient underwent tracheostomy placement yesterday. Per nursing she is able to titrate down on the Levophed. The patient is currently undergoing hemodialysis. The patient has anasarca and is grossly edematous in all extremities. She does arouse to verbal and tactile stimuli. She does follow commands. 11/27/2018: Patient seen and examined in the intensive care unit covering for Dr. Bandar Paul. The patient is awake and following commands. She did have a bowel movement and nursing is cleaning her out. She does have anasarca and edema. She tolerated hemodialysis yesterday. 11/29/2018: Patient seen and examined in the intensive care unit covering for Dr. Salvador. The patient is having worsening abdominal distention. She is going to be taken down for computed tomography scan of the abdomen and pelvis. She did have an EGD yesterday which did not show any bleeding or ulcers. The patient's hemoglobin did go down to 6.8 and she will receive 1 unit of packed red blood cells. Objective - Vital Signs Vital signs: Vital Signs Temp 97.8 F 02/12/19 09:43 Pulse 95 11/29/18 09:43 Resp 20 11/29/18 09:43 BP 108/57 11/29/18 09:43 Pulse Ox 96 11/29/18 09:03 Intake & Output 11/28/18 11/29/18 11/29/18 18:59 06:59 18:59 Intake Total 9445.088 4643.441 279.780 Output Total 205 410 10 Balance 1716.541 963.441 269.780 Weight 131 kg 132 kg Intake: IV 780 910 90 Cefepime 1 gm In Sodium 50 Chloride 0.9% 50 ml @ 100 mls/hr IVPB Q24HR [facility] Rx #:[id number] Mvi, Adult No.4 with Vit 560 800 80 K 10 ml Trace (Conc-1Ml/ Dose) 1 ml In Amino Acid 5%-D15w+Lytes*E* 1,000 ml @ 80 mls/hr IV .BY DURATION [facility] Rx#: [id number] Sodium Chloride 0.9% 1, 70 110 10 000 ml @ 10 mls/hr IV . Q24H [facility] Rx#:[id number] metroNIDAZOLE-NS PMX 500 100 mg In Saline 1 100ml.bag @ 100 mls/hr IVPB Q8HR [facility] Rx#:[id number] Intake, IV Titration 1131.541 283.441 189.780 Amount Heparin Sod,Pork in 0.45% 69.167 71.123 NaCl 25,000 unit In 0.45 % NaCl 1 250ml.bag @ 7. 634 UNITS/KG/HR 10 mls/hr IV .Q24H [facility] Rx#: [id number] Insulin Regular 100 unit 35.941 85.8 67 In Sodium Chloride 0.9% 100 ml @ Per Protocol IV .Q0M [facility] Rx#:[id number] Mvi, Adult No.4 with Vit 1011 K 10 ml Trace (Conc-1Ml/ Dose) 1 ml In Amino Acid 5%-D15w+Lytes*E* 1,000 ml @ 80 mls/hr IV .BY DURATION [facility] Rx#: [id number] Norepinephrine 32 mg In 84.6 128.474 51.657 Sodium Chloride 0.9% 250 ml @ 0.1 MCG/KG/MIN 6 mls /hr IV .Q24H [facility] Rx#: [id number] Tube Feeding 10 180 Blood Product 0 Rc As-3 Unit 0 [id number] Output: Urine 5 10 10 Stool 200 400 Other: Voiding Method Indwelling Catheter Indwelling Catheter # Voids 0 ABP, PAP, CO, CI - Last Documented Arterial Blood Pressure 118/62 - Exam GENERAL EXAM: On mechanical ventilation with tracheostomy, morbidly obese HEAD: Normocephalic. EYES: Normal reaction of pupils, equal size. NOSE: Clear with pink turbinates. THROAT: No erythema or exudates. NECK: No masses, no JVD. CHEST: No chest wall deformity. LUNGS: Diminished with scattered rhonchi CVS: S1 and S2 normal with no audible mumurs, regular rhythm. ABDOMEN: distended, +BS EXTREMITIES: +1 edema noted, blue digits and toes, cold to the touch, pedal pulses obtainable with Doppler. CENTRAL NERVOUS SYSTEM: Unable to assess, on sedation - Labs CBC & Chem 7: 11/29/18 04:17 11/29/18 04:17 Labs: Abnormal Lab Results - Last 24 Hours (Table) 11/23/18 11/26/18 11/28/18 Range/Units 19:07 09:20 11:51 WBC (3.8-10.6) k/uL RBC (3.80-5.40) m/uL Hgb (11.4-16.0) gm/dL Hct (34.0-46.0) % MCV (80.0-100.0) fL MCHC (31.0-37.0) g/dL RDW (11.5-15.5) % Plt Count (150-450) k/uL Neutrophils # (1.3-7.7) k/uL Neutrophils # (Manual) (1.3-7.7) k/uL Lymphocytes # (1.0-4.8) k/uL Nucleated RBCs (0-0) /100 WBC APTT (22.0-30.0) sec Sodium (137-145) mmol/L Carbon Dioxide (22-30) mmol/L BUN (7-17) mg/dL Creatinine (0.52-1.04) mg/dL Glucose (74-99) mg/dL POC Glucose (mg/dL) 172 H 115 H (75-99) mg/dL Calcium (8.4-10.2) mg/dL Phosphorus (2.5-4.5) mg/dL Crossmatch See Detail 11/28/18 11/28/18 11/28/18 Range/Units 14:10 14:13 14:56 WBC 15.3 H (3.8-10.6) k/uL RBC 2.33 L (3.80-5.40) m/uL Hgb 7.0 L (11.4-16.0) gm/dL Hct 23.5 L (34.0-46.0) % MCV 101.3 H (80.0-100.0) fL MCHC 29.8 L (31.0-37.0) g/dL RDW 19.4 H (11.5-15.5) % Plt Count (150-450) k/uL Neutrophils # 13.2 H (1.3-7.7) k/uL Neutrophils # (Manual) (1.3-7.7) k/uL Lymphocytes # 0.7 L (1.0-4.8) k/uL Nucleated RBCs (0-0) /100 WBC APTT (22.0-30.0) sec Sodium (137-145) mmol/L Carbon Dioxide (22-30) mmol/L BUN (7-17) mg/dL Creatinine (0.52-1.04) mg/dL Glucose (74-99) mg/dL POC Glucose (mg/dL) 153 H 149 H (75-99) mg/dL Calcium (8.4-10.2) mg/dL Phosphorus (2.5-4.5) mg/dL Crossmatch 11/28/18 11/28/18 11/28/18 Range/Units 16:18 16:59 18:17 WBC (3.8-10.6) k/uL RBC (3.80-5.40) m/uL Hgb (11.4-16.0) gm/dL Hct (34.0-46.0) % MCV (80.0-100.0) fL MCHC (31.0-37.0) g/dL RDW (11.5-15.5) % Plt Count (150-450) k/uL Neutrophils # (1.3-7.7) k/uL Neutrophils # (Manual) (1.3-7.7) k/uL Lymphocytes # (1.0-4.8) k/uL Nucleated RBCs (0-0) /100 WBC APTT (22.0-30.0) sec Sodium (137-145) mmol/L Carbon Dioxide (22-30) mmol/L BUN (7-17) mg/dL Creatinine (0.52-1.04) mg/dL Glucose (74-99) mg/dL POC Glucose (mg/dL) 173 H 163 H 154 H (75-99) mg/dL Calcium (8.4-10.2) mg/dL Phosphorus (2.5-4.5) mg/dL Crossmatch 11/28/18 11/28/18 11/29/18 Range/Units 19:06 22:23 00:01 WBC (3.8-10.6) k/uL RBC (3.80-5.40) m/uL Hgb (11.4-16.0) gm/dL Hct (34.0-46.0) % MCV (80.0-100.0) fL MCHC (31.0-37.0) g/dL RDW (11.5-15.5) % Plt Count (150-450) k/uL Neutrophils # (1.3-7.7) k/uL Neutrophils # (Manual) (1.3-7.7) k/uL Lymphocytes # (1.0-4.8) k/uL Nucleated RBCs (0-0) /100 WBC APTT 94.2 H (22.0-30.0) sec Sodium (137-145) mmol/L Carbon Dioxide (22-30) mmol/L BUN (7-17) mg/dL Creatinine (0.52-1.04) mg/dL Glucose (74-99) mg/dL POC Glucose (mg/dL) 146 H 126 H (75-99) mg/dL Calcium (8.4-10.2) mg/dL Phosphorus (2.5-4.5) mg/dL Crossmatch 11/29/18 11/29/18 11/29/18 Range/Units 00:08 01:59 02:49 WBC (3.8-10.6) k/uL RBC (3.80-5.40) m/uL Hgb (11.4-16.0) gm/dL Hct (34.0-46.0) % MCV (80.0-100.0) fL MCHC (31.0-37.0) g/dL RDW (11.5-15.5) % Plt Count (150-450) k/uL Neutrophils # (1.3-7.7) k/uL Neutrophils # (Manual) (1.3-7.7) k/uL Lymphocytes # (1.0-4.8) k/uL Nucleated RBCs (0-0) /100 WBC APTT (22.0-30.0) sec Sodium (137-145) mmol/L Carbon Dioxide (22-30) mmol/L BUN (7-17) mg/dL Creatinine (0.52-1.04) mg/dL Glucose (74-99) mg/dL POC Glucose (mg/dL) 137 H 182 H 182 H (75-99) mg/dL Calcium (8.4-10.2) mg/dL Phosphorus (2.5-4.5) mg/dL Crossmatch 11/29/18 11/29/18 11/29/18 Range/Units 04:17 04:17 04:24 WBC 11.5 H (3.8-10.6) k/uL RBC 2.27 L (3.80-5.40) m/uL Hgb 6.8 L* (11.4-16.0) gm/dL Hct 22.9 L (34.0-46.0) % MCV 100.8 H (80.0-100.0) fL MCHC 29.9 L (31.0-37.0) g/dL RDW 20.1 H (11.5-15.5) % Plt Count 148 L (150-450) k/uL Neutrophils # (1.3-7.7) k/uL Neutrophils # (Manual) 8.80 H (1.3-7.7) k/uL Lymphocytes # (1.0-4.8) k/uL Nucleated RBCs 2 H (0-0) /100 WBC APTT (22.0-30.0) sec Sodium 128 L (137-145) mmol/L Carbon Dioxide 20 L (22-30) mmol/L BUN 66 H (7-17) mg/dL Creatinine 2.98 H (0.52-1.04) mg/dL Glucose 134 H (74-99) mg/dL POC Glucose (mg/dL) 148 H (75-99) mg/dL Calcium 8.0 L (8.4-10.2) mg/dL Phosphorus 4.6 H (2.5-4.5) mg/dL Crossmatch 11/29/18 11/29/18 11/29/18 Range/Units 05:19 07:06 08:15 WBC (3.8-10.6) k/uL RBC (3.80-5.40) m/uL Hgb (11.4-16.0) gm/dL Hct (34.0-46.0) % MCV (80.0-100.0) fL MCHC (31.0-37.0) g/dL RDW (11.5-15.5) % Plt Count (150-450) k/uL Neutrophils # (1.3-7.7) k/uL Neutrophils # (Manual) (1.3-7.7) k/uL Lymphocytes # (1.0-4.8) k/uL Nucleated RBCs (0-0) /100 WBC APTT 40.0 H (22.0-30.0) sec Sodium (137-145) mmol/L Carbon Dioxide (22-30) mmol/L BUN (7-17) mg/dL Creatinine (0.52-1.04) mg/dL Glucose (74-99) mg/dL POC Glucose (mg/dL) 137 H 139 H (75-99) mg/dL Calcium (8.4-10.2) mg/dL Phosphorus (2.5-4.5) mg/dL Crossmatch 11/29/18 11/29/18 Range/Units 08:17 11:32 WBC (3.8-10.6) k/uL RBC (3.80-5.40) m/uL Hgb (11.4-16.0) gm/dL Hct (34.0-46.0) % MCV (80.0-100.0) fL MCHC (31.0-37.0) g/dL RDW (11.5-15.5) % Plt Count (150-450) k/uL Neutrophils # (1.3-7.7) k/uL Neutrophils # (Manual) (1.3-7.7) k/uL Lymphocytes # (1.0-4.8) k/uL Nucleated RBCs (0-0) /100 WBC APTT (22.0-30.0) sec Sodium (137-145) mmol/L Carbon Dioxide (22-30) mmol/L BUN (7-17) mg/dL Creatinine (0.52-1.04) mg/dL Glucose (74-99) mg/dL POC Glucose (mg/dL) 140 H 135 H (75-99) mg/dL Calcium (8.4-10.2) mg/dL Phosphorus (2.5-4.5) mg/dL Crossmatch Assessment and Plan Assessment: Acute on chronic renal failure Acute hypoxic respiratory failure requiring supplemental oxygen and mechanical ventilation - fluid overload with a component of pna - ecoli Small bilateral pleural effusions Atrial fibrillation, now rate controlled Ischemic cardiomyopathy Sepsis shock Altered mental status and metabolic encephalopathy DVT of the right lower extremity small bilateral pleural effusions Suspect GIB CKD IV, now ESRD on HD Severe anemia NSTEMI, Hx ASCAD and CABG Peripheral vascular disease DM2 Plan Tracheostomy placed Medications have been reviewed and will be continued as ordered. Continue with nurse recruiter recommendations Hemodialysis per nephrology Continue to monitor hemoglobin, transfuse 1 unit PRBCs now Dietary for nutrition Insulin drip as ordered Heparin per cardiology Continue with pulmonary hygiene, coughing and deep breathing exercises, and supportive care. Supplemental oxygen to maintain oxygen saturations of 92% or better. Continue nebulizer treatments. GI and DVT prophylaxis. Heparin drip and tube feeding on hold, urgent CT abd/pelvis Patient seen and examined covering for Dr. Bandar Paul.
[2018-11-29] MEDS: IOPAMIDOL-300 CONTRAST 30 ML VIAL (ORAL USE) PO PRN ×2 (12:03→13:03)
[2018-11-29 12:26] LABS: Glucose,Whole Blood 143 mg/dL (75-99)
[2018-11-29 13:42] LABS: Glucose,Whole Blood 168 mg/dL (75-99)
--- NOTE | 2018-11-29 14:47 | CT ---
EXAMINATION TYPE: CT abdomen pelvis wo con DATE OF EXAM: 11/29/2018 HISTORY: Increased Abdominal distention CT DLP: 3721 mGycm. Automated Exposure Control for Dose Reduction was Utilized. TECHNIQUE: CT scan of the abdomen and pelvis is performed with oral but without IV contrast. COMPARISON: CT abdomen September 06, 2017 FINDINGS: Within the limitations of a non-contrast study, the following observations are made. LUNG BASES: There is partial visualization of small to moderate-sized bilateral pleural effusions and associated compressive atelectasis. LIVER/GB: Mild perihepatic ascites is seen anteriorly and to the right aspect of liver. Gallbladder i s not visualized and presumed surgically absent. PANCREAS: No significant abnormality is seen. SPLEEN: No significant abnormality is seen. ADRENALS: No significant abnormality is seen. KIDNEYS: Some cortical thinning in both kidneys is seen. Central vascular calcification is present. BOWEL: Oral contrast and distended stomach is identified. Duodenal sweep is poorly distended and thus suboptimally evaluated. There is no suspicious small or large bowel dilatation. There is fluid promi nent right colon and cecum. There is gas-filled nondilated transverse colon. There is nondistended di stal left colon. Draining rectal tube is noted. GENITAL ORGANS: Anteverted uterus is present LYMPH NODES: No greater than 1cm abdominal or pelvic lymph nodes are appreciated. OSSEOUS STRUCTURES: Moderate to severe narrowing with vacuum disc phenomenon L5-S1 level is present OTHER: There is new moderate to severe diffuse soft tissue anasarca. Small amount of pelvic ascites i s seen including in the presacral space. There is severe calcified plaque of [place] aorta extending i nto branch vessels. There is evidence of prior aortobiiliac grafting surgery. There is right femoral central venous catheter. IMPRESSION: 1. Severe diffuse soft tissue anasarca with mild amount of abdominal and pelvic ascites. 2. Overall nonspecific favor nonobstructive bowel gas pattern. New stomach distention noted. Correlat e for possible gastroparesis.
[2018-11-29 15:29] LABS: Glucose,Whole Blood 156 mg/dL (75-99)
[2018-11-29] MEDS: ATORVASTATIN 40 MG TAB PO SCH (16:26)
[2018-11-29] MEDS: AMIODARONE 200 MG TAB PO SCH ×2 (16:26→20:51)
[2018-11-29] MEDS: METOPROLOL TARTRATE 25 MG TAB PO SCH ×2 (16:27→20:51)
[2018-11-29 16:31] LABS: Glucose,Whole Blood 176 mg/dL (75-99)
[2018-11-29] MEDS: CHLORHEXIDINE GLUCONATE 15 ML CUP MUCOUS MEM SCH ×2 (16:31→20:51)
[2018-11-29] MEDS: HEPARIN SODIUM,PORCINE 5,000 UNIT/ML 1 ML VIAL IV PRN (16:32)
--- NOTE | 2018-11-29 17:39 | P.PN ---
Subjective Progress Note Date: 11/29/18 Principal diagnosis: Acute renal failure, altered mental status likely related to acute renal failure , hypotension, severe sepsis, hypertension, A. fib with RVR, episode a wide- complex tachycardia, Right lower extremity venous thrombosis, chronic intermittent thromboembolism, pulmonary hypertension, biventricular failure, acute on chronic systolic heart failure, acute on chronic renal failure is stage IV, small bilateral pleural effusion likely related to heart failure, morbid obesity, suspect sleep disorder breathing and sleep apnea 11/29/2018, patient seen eval examined during the rounds patient is currently undergoing hemodialysis, no plans for fluid removal today however patient will have another repeat hemodialysis tomorrow with plans to remove 2-3 L, patient remains on small dose of levo fed drip, generic hemodialysis yesterday in which she successfully tolerated removal of 3 L of fluid, hemodynamic status remains marginal but stable, this morning patient noted to have drop of hemoglobin has been transfused with 1 unit of packed RBC no signs of active bleeding however is seen, as per request of family care plan discussed with the staff at length as well as with [facility] for possible transfer which however has been declined, patient underwent a computed tomography scan of the abdomen for distended abdomen noted which however has been negative some gases distention nonspecific seen no perforation identified no collection of blood has been noted , patient has been back on heparin drip vascular surgery is following, currently patient remains on insulin drip, her vent settings include assist control rate of 20, breathing 24-26, tidal volume is 500 with 5 of PEEP, and 40 % oxygen, 11/28/2018, patient seen and evaluated examined she is awake opens eyes does follow intermittently simple commands patient remains on full ventilator support unable to wean her from the respirator, vent settings include assist control rate of 16 tidal volume of the 505 of PEEP and the 40% oxygen, peak air pressures are slightly on the higher side, blood pressure remains low requiring low-dose vasopressors with levo fed, patient is being evaluated by nephrology service also for hemodialysis, vascular surgery recommended to start heparin drip IVC filter placement is currently on hold, care plan discussed with the family present at bedside as well as the nursing staff at length critical care time spent 35 minutes 11/20/2018, patient seen eval examined during the rounds patient remains on assist control mode with assist control of 20 breathing 20 tidal volume of 450 PEEP of 5 and 40% oxygen, patient is on 5 mics of levo fed drip, blood pressure ranging from map of 60-65, urine output remains absent, patient over not overnight remains stable no episode of GI bleed or arrhythmia however has been noted, patient does open eyes intermittently does follow simple commands, I have placed patient on CPAP of 5 and pressure support of 5 she was monitor observe for half an hour, her weaning parameters were reviewed with the respiratory labs reviewed medications reviewed, chest x-ray performed earlier this morning reviewed and compared with prior x-ray remains unchanged, the hemoglobin is 7.1, arterial blood gas from earlier this morning reviewed remains stable, after the successful trial patient has been extubated and placed on supplemental oxygen overall doing well, critical care time spent 40 minutes 11/19/2018, patient seen and evaluated examined during the rounds, (late entry note), patient has undergone 2 trials of weaning earlier today, second episode was complicated with tachypnea and tachycardia, patient had a run of wide complex tachycardia however resolved spontaneously cardiovascular services following adjusting the dose of amiodarone, patient is scheduled for next dialysis on Wednesday, patient remains on 5 mics of levo, remains on assist control mode otherwise will repeat the weaning if tolerated well possible extubation in next 24 hours, and labs reviewed medications reviewed care plan discussed with staff, patient does open eyes follow intermittent commands but not consistently 11/18/2018, patient seen eval examined during the rounds patient is arousable currently on 5 mics of levo fed remains on full ventilator support, CPAP was not attempted earlier today for unclear reasons, patient just has been noted to have episode of bradycardia heart rate dropped down into 40s, hemodynamics however remains stable with stable blood pressure, is being planned for hemodialysis later on today, labs reviewed medications reviewed, bradycardia episode appeared to be related to high-dose amiodarone which has been reduced from 400 twice a day to 200 twice a day with plans to hold the dose tonight we' ll recommend up parameters to hold amiodarone if heart rate remains less than 60 -70 continue other supportive care in the meantime we'll do a CPAP and pressure support 5 and 5 and try to get a blood gas if tolerated well will do a CPAP trial for an hour to 2 hours as tolerated 11/17/2018, patient seen eval reexamined during the rounds, patient had the episode of the irregular heartbeat and wide complex tachycardia while undergoing hemodialysis, the dialysis was terminated early yesterday, followed by an another episode while she was undergoing CPAP trial last night, CPAP trial was canceled at bedtime, patient remains on oral amiodarone, patient has been intermittently in and out of sinus rhythm as well as the atrial fibrillation currently patient is on well-controlled ventricular rate, she is sedated with the Ativan as needed Dilaudid is being given and started for pain control, patient is now off of propofol drip, patient is due for hemodialysis as per discussion with the renal services today, radiographic studies reviewed chest x-ray fairly stable, current vent settings include assist control rate of the 20 tidal volume 500 with 5 of PEEP and 40% oxygen had peaked or pressure in mid 30s, patient remains on insulin drip about 11 units, levo fed is down to 5 mics, the stool for C. difficile is negative, labs reviewed medications reviewed care plan discussed with the staff as well as the renal service at length critical care time spent 45 minutes 11/16/2018, patient seen eval examined during the rounds she is still under affect of propofol which has been discontinued and has been resumed though, patient has some loose stool which has been sent for C. difficile, hemodynamic status slightly improved patient is now on 4 mics of levo fed drip, ventilator setting remains as stable, arterial blood gas revealed suggestive of respiratory and metabolic acidosis, care plan discussed with the staff at length , will continue current supportive care and agree with hemodialysis later on today patient is being started on IV Solu-Medrol continue breathing treatment in addition will DC the propofol "patient on morphine and Ativan and set up a protocol for weaning will do CPAP and pressure support trial with 5 and 10 twice a day for one to 2 hours as tolerated blood patient to be more awake now, critical care time spent 35 minutes 11/15/2018, patient seen eval examined during the rounds clinically has been doing well awake and alert levo fed drip is down to 11 mics, ventilator setting remains stable, patient remains on heparin drip, currently patient is assist control rate of 20 breathing 20 tidal volume of 5oo, 40% oxygen and 5 of PEEP, the acral cyanosis essentially unchanged, patient has very minimal urine output , labs reviewed medications reviewed, we'll taper down the propofol drip with that and hemodynamics will improve also can initiate the weaning trial will see if patient can tolerate a trial for half an hour with CPAP 5 and pressure support of 5 11/14/2018, patient seen eval examined during the rounds clinically has been doing essentially unchanged status post hemodialysis 1.5 L of fluid has been removed, labs reviewed medications reviewed care plan discussed, the BUN/ creatinine improved to 44 and 4.9, liver function continued to improve 11/13/2018, patient seen and evaluated examined during the rounds, patient does withdraws to pain and physical stimuli, she is sedated with propofol drip, patient is on 25 mics of propofol if lower down becomes restless less anxious and agitated, patient has been remain on heparin drip tolerating very well no evidence of bleeding has been seen, the acral cyanosis in the upper extremity appears to have improved today however in the lower extremity remains unchanged , patient is also on bicarb drip U fed drip is down to 14 mics which is gradually being titrated patient is on insulin drip 2.5 units an hour for hyperglycemia, her peak airway pressures 33 her vent settings include assist control rate of 20 breathing 20 tidal volume 505 of PEEP and 40% oxygen, her sputum culture results and reports are reviewed no growth has been noted blood cultures no growth so far, patient was able to get the hemodialysis yesterday 1.5 L of fluid has been removed, labs from today reviewed white cell count continue to go down is 10,900 hemoglobin remained stable 8.5, patient is well anticoagulated with IV heparin, platelet count remains stable but however slow decline has as been noted which is being monitored observe his 135, patient is on tube feed tolerating very well slowly been escalated, BUN/creatinine has improved to 38 and 4.1, sodium is 132, LFT continued to improve AST/ALT now in to low thousands, IV amiodarone infusion has a stab patient is now on by mouth amiodarone no new episodes of A. fib RVR or V. tach has been noted, chest x-ray remains stable, critical care time spent 45 minutes 11/12/2018, patient seen eval examined during the rounds clinically patient is slightly improved in terms of laboratory data and hemodynamic support, patient remains sedated with propofol drip currently the dose is down to 40 mics, it is down to 20 mics patient continued to manifest ischemic changes in the toes as well as in the fingertips, bicarb drip is being given to counteract severe profound metabolic peripheral acidosis, she remains on full ventilator support with assist control of 20 tidal volume of 500, PEEP of 5, FiO2 down to 65%, oxygen saturation is 100% as checked with the right ear lobe, patient is now in sinus rhythm has been in A. fib but spontaneously converted patient has been amiodarone IV which is to be switched to oral aspirin cardiovascular services, current infusions include heparin drip tolerating very well no new bleeding has been seen along with levo fed drip 20 mics, propofol drip and bicarb drip, respiratory secretions are minimal, bowel sounds are hypoactive, no evidence of bleeding has been seen patient to be started on tube feed and dialysis is being planned later on today as well as per discussion with the renal services, answers are all negative so far, chest x-ray shows right lower lobe subsegmental atelectasis small effusion which is stable, leukocytosis improved today compared to yesterday, critical care time spent 35 minutes 11/11/2018, patient seen eval examined during the rounds clinically patient remains sedated and intubated, currently patient is on now full ventilator support she is on assist control rate of 20 breathing 20 tidal volume of 505 of PEEP and 75% oxygen, patient remains on heparin drip which is has been started this morning, also on propofol drip 45 mics, levo fed drip is off 24 mics, patient does have been noted to have as a spasm in the upper extremity as well as lower extremity with bluish discoloration, patient has being restarted on heparin drip to optimize the levo fed to contract severe profound metabolic acidosis, reviewed medications reviewed care plan discussed with the staff at length, patient will need a arterial line attempted but unable to cannulate the femoral artery, however able to access the femoral vein a triple-lumen catheter most of the infusions are incompatible with each other, dialysis is not performed due to unstable situation and condition, urine output remains very minimal, Keofeed to be started heparin to be continued monitor hemoglobin closely, critical care time spent 45 minutes including procedure, Patient was intubated last night due to severe tachypnea and tachycardia and intermittent runs of the V. tach along with atrial fibrillation, patient has been initiated amiodarone drip as well, given that ABG could not be obtained venous blood gases are being used 11/10/2018, patient seen eval reexamined during the rounds clinically patient has a not much change from baseline has been transfused 1 unit of packed RBC patient to has been more lethargic but readily arousable arterial blood gas couldn't be obtained a venous blood gas has been performed continued to show respiratory acidosis combined with metabolic acidosis, patient is due for dialysis today also been planned for EGD which has been performed some gastritis has been noted with some white patches suggestive of ischemic changes cannot be excluded for details please refer to EGD note, patient remains on 7 mics of levo fed which is to be titrated down as blood pressure has improved, we will do low-dose bicarb drip as well patient did receive a dose of desmopressin earlier this morning, patient remains on BiPAP 15/10 with the FiO2 to keep saturation over 90-94%, patient remain somnolent and lethargic but readily arousable respond appropriately when awake then goes right back to sleep , patient did receive a dose of Xanax 11/08/2018, patient seen eval reexamined during the rounds clinically patient remains marginal continue require vasopressors currently patient is on 19 mics of levo fed drip, during dialysis patient had episode of the tachyarrhythmia requiring amiodarone now patient after the initial IV boluses back to sinus rhythm, hemodynamic status is overall stable but marginal, urine output remains very low, patient did tolerate the hemodialysis fairly well earlier this morning except the findings as noted to more old bleeding noted it appears to be old blood, patient is currently on desmopressin drip, also has been infused with 1 unit of packed RBC, heparin drip has been on hold since yesterday, vascular surgery has been consulted for evaluation of IVC filter as patient has deep venous thrombosis right lower extremity, sugars continue to be run on the higher side remains on insulin drip, patient is on proton pump inhibitor IV with frequent monitoring with monitoring observation her hemoglobin him to keep hemoglobin over 7 no active bleeding however has been noted by GI services has been consulted as well for GI bleed, Estrace standpoint tolerating BiPAP very well currently patient is on BiPAP with 12 of BiPAP the and 5 EPAP respiratory rate is 22 her spontaneous tidal volumes ranging in mid 400 range, she is on 40 % oxygen, arterial blood gas couldn't be drawn, labs medications and radiographic studies reviewed culture results are reviewed as well no positive cultures been seen patient remains on Zosyn, critical care time spent 35 minutes 11/07/2018, patient seen and evaluated examined during the rounds this morning critical care time spent 40 minutes, patient has removed to the ICU from medical floor as she was hypotensive with poor urine output in addition patient has been more somnolent and lethargic she did have receive a dose of Xanax on the floor, after arrival in ICU patient remains very hypotensive with tachycardia was given multiple fluid boluses to improve the hemodynamics however eventually starting the levo fed drip, patient does have 2 peripheral IVs one of them is not functioning very well, worsening of renal function has been noted the renal services planning to do hemodialysis, patient has very poor peripheral arterial disease unable to obtain ABG in addition to that very poor peripheral pulses are present, patient is arousable opens eyes follow simple commands but remains very anxious and agitated, patient eventually went up to 25 mics of levo fed drip with a systolic blood pressure ranging about 100 210, urine output has been very minimal, given that the lack of ability of IV axis will proceed with a central line however patient needed dialysis port as well will do a trilysis catheter (hemodialysis catheter with extra port), care plan discussed with the vascular surgery as well and renal services planning to do hemodialysis later on today provided hemodynamics remain stable, due to anticipated profound metabolic acidosis patient has been started on bicarb drip , patient is being kept on IV Zosyn heparin has been on hold due to procedures as well as elevated PTT labs reviewed medications reviewed radiographic studies reviewed as well 11/06/2018, patient seen evlauro examined during the rounds clinically patient has a been doing relatively better in terms of shortness of breath and swelling of the lower extremity patient is currently on room air however renal function continued to go up slightly and Lasix dose is being adjusted by renal service labs reviewed medications reviewed for now we'll continue IV heparin hopefully next 24-48 hours we'll switch it to oral anticoagulants 11/05/2018, patient seen evlauro reexamined during the rounds clinically has been doing relatively better in terms of breathing leg swelling the lower extremity is slightly better patient is on anticoagulation with IV heparin for DVT thrombosis of lower extremity on the right side also probable pulmonary embolism as well Patient presented to the hospital with worsening dyspnea and edema. Patient states she's been getting progressively short of breath over the last 1 week. She initially thought it was asthma but the symptoms did not improve with nebulized treatments. She also noticed edema in her legs. She states she does not take any diuretics at home. She admits to good urine output. No hematuria or dysuria. No vomiting or diarrhea. Oral intake has been fair. Denies use of NSAIDs. Chest CT revealed bilateral pleural effusions. Echocardiogram revealed ejection fraction of 35-40% with severe pulmonary hypertension. Currently maintained on Lasix 40 mg IV twice daily. She has been voiding. No fever or chills. Her duplex ultrasound of the lower extremity came back positive for DVT patient is now being started on IV heparin Objective - Vital Signs Vital signs: Vital Signs Temp 98.2 F 11/29/18 12:30 Pulse 85 11/29/18 16:28 Resp 20 11/29/18 15:00 BP 117/60 11/29/18 15:00 Pulse Ox 99 11/29/18 15:00 Intake & Output 11/28/18 11/29/18 11/29/18 18:59 06:59 18:59 Intake Total 6962.213 0930.441 1765.263 Output Total 205 410 245 Balance 1716.541 993.608 6988.263 Weight 131 kg 132 kg Intake: IV 930 884 7092 Cefepime 1 gm In Sodium 50 50 Chloride 0.9% 50 ml @ 100 mls/hr IVPB Q24HR [facility] Rx #:[id number] Mvi, Adult No.4 with Vit 560 800 800 K 10 ml Trace (Conc-1Ml/ Dose) 1 ml In Amino Acid 5%-D15w+Lytes*E* 1,000 ml @ 80 mls/hr IV .BY DURATION [facility] Rx#: [id number] Sodium Chloride 0.9% 1, 70 110 100 000 ml @ 10 mls/hr IV . Q24H [facility] Rx#:[id number] metroNIDAZOLE-NS PMX 500 100 200 mg In Saline 1 100ml.bag @ 100 mls/hr IVPB Q8HR [facility] Rx#:[id number] Intake, IV Titration 1131.541 283.441 225.263 Amount Heparin Sod,Pork in 0.45% 69.167 71.123 NaCl 25,000 unit In 0.45 % NaCl 1 250ml.bag @ 7. 634 UNITS/KG/HR 10 mls/hr IV .Q24H [facility] Rx#: [id number] Insulin Regular 100 unit 35.941 85.8 102.483 In Sodium Chloride 0.9% 100 ml @ Per Protocol IV .Q0M [facility] Rx#:[id number] Mvi, Adult No.4 with Vit 1011 K 10 ml Trace (Conc-1Ml/ Dose) 1 ml In Amino Acid 5%-D15w+Lytes*E* 1,000 ml @ 80 mls/hr IV .BY DURATION [facility] Rx#: [id number] Norepinephrine 32 mg In 84.6 128.474 51.657 Sodium Chloride 0.9% 250 ml @ 0.1 MCG/KG/MIN 6 mls /hr IV .Q24H [facility] Rx#: [id number] Tube Feeding 10 180 80 Blood Product 310 Rc As-3 Unit 310 [id number] Output: Urine 5 10 45 Stool 200 400 200 Other: Voiding Method Indwelling Catheter Indwelling Catheter Indwelling Catheter # Voids 0 0 ABP, PAP, CO, CI - Last Documented Arterial Blood Pressure 103/54 - Exam - Constitutional General appearance: disheveled, no distress, morbidly obese, comfortable for ventilator support- Neck Neck: normal ROM Carotids: bilateral: upstroke normal Thyroid: bilateral: normal size - Respiratory Respiratory: bilateral: CTA, few basal rales, negative: diminished, dullness - Cardiovascular Rhythm: regular Heart sounds: normal: S1, S2 - Integumentary Integumentary: normal turgor Abdomen soft - Neurologic Neurologic: CNII-XII intact, opens eyes does make eye contact but remains nonverbal and noncommunicative - Musculoskeletal Musculoskeletal: the cyanosis in the fingertips have appeared to improve, however in the ischemic changes on the toes remains unchanged - Psychiatric Psychiatric: Awake does make eye contact - Labs CBC & Chem 7: 11/29/18 04:17 11/29/18 04:17 Labs: Abnormal Lab Results - Last 24 Hours (Table) 11/23/18 11/26/18 11/28/18 Range/Units 19:07 09:20 18:17 WBC (3.8-10.6) k/uL RBC (3.80-5.40) m/uL Hgb (11.4-16.0) gm/dL Hct (34.0-46.0) % MCV (80.0-100.0) fL MCHC (31.0-37.0) g/dL RDW (11.5-15.5) % Plt Count (150-450) k/uL Neutrophils # (Manual) (1.3-7.7) k/uL Nucleated RBCs (0-0) /100 WBC APTT (22.0-30.0) sec Sodium (137-145) mmol/L Carbon Dioxide (22-30) mmol/L BUN (7-17) mg/dL Creatinine (0.52-1.04) mg/dL Glucose (74-99) mg/dL POC Glucose (mg/dL) 172 H 154 H (75-99) mg/dL Calcium (8.4-10.2) mg/dL Phosphorus (2.5-4.5) mg/dL Crossmatch See Detail 11/28/18 11/28/18 11/29/18 Range/Units 19:06 22:23 00:01 WBC (3.8-10.6) k/uL RBC (3.80-5.40) m/uL Hgb (11.4-16.0) gm/dL Hct (34.0-46.0) % MCV (80.0-100.0) fL MCHC (31.0-37.0) g/dL RDW (11.5-15.5) % Plt Count (150-450) k/uL Neutrophils # (Manual) (1.3-7.7) k/uL Nucleated RBCs (0-0) /100 WBC APTT 94.2 H (22.0-30.0) sec Sodium (137-145) mmol/L Carbon Dioxide (22-30) mmol/L BUN (7-17) mg/dL Creatinine (0.52-1.04) mg/dL Glucose (74-99) mg/dL POC Glucose (mg/dL) 146 H 126 H (75-99) mg/dL Calcium (8.4-10.2) mg/dL Phosphorus (2.5-4.5) mg/dL Crossmatch 11/29/18 11/29/18 11/29/18 Range/Units 00:08 01:59 02:49 WBC (3.8-10.6) k/uL RBC (3.80-5.40) m/uL Hgb (11.4-16.0) gm/dL Hct (34.0-46.0) % MCV (80.0-100.0) fL MCHC (31.0-37.0) g/dL RDW (11.5-15.5) % Plt Count (150-450) k/uL Neutrophils # (Manual) (1.3-7.7) k/uL Nucleated RBCs (0-0) /100 WBC APTT (22.0-30.0) sec Sodium (137-145) mmol/L Carbon Dioxide (22-30) mmol/L BUN (7-17) mg/dL Creatinine (0.52-1.04) mg/dL Glucose (74-99) mg/dL POC Glucose (mg/dL) 137 H 182 H 182 H (75-99) mg/dL Calcium (8.4-10.2) mg/dL Phosphorus (2.5-4.5) mg/dL Crossmatch 11/29/18 11/29/18 11/29/18 Range/Units 04:17 04:17 04:24 WBC 11.5 H (3.8-10.6) k/uL RBC 2.27 L (3.80-5.40) m/uL Hgb 6.8 L* (11.4-16.0) gm/dL Hct 22.9 L (34.0-46.0) % MCV 100.8 H (80.0-100.0) fL MCHC 29.9 L (31.0-37.0) g/dL RDW 20.1 H (11.5-15.5) % Plt Count 148 L (150-450) k/uL Neutrophils # (Manual) 8.80 H (1.3-7.7) k/uL Nucleated RBCs 2 H (0-0) /100 WBC APTT (22.0-30.0) sec Sodium 128 L (137-145) mmol/L Carbon Dioxide 20 L (22-30) mmol/L BUN 66 H (7-17) mg/dL Creatinine 2.98 H (0.52-1.04) mg/dL Glucose 134 H (74-99) mg/dL POC Glucose (mg/dL) 148 H (75-99) mg/dL Calcium 8.0 L (8.4-10.2) mg/dL Phosphorus 4.6 H (2.5-4.5) mg/dL Crossmatch 11/29/18 11/29/18 11/29/18 Range/Units 05:19 07:06 08:15 WBC (3.8-10.6) k/uL RBC (3.80-5.40) m/uL Hgb (11.4-16.0) gm/dL Hct (34.0-46.0) % MCV (80.0-100.0) fL MCHC (31.0-37.0) g/dL RDW (11.5-15.5) % Plt Count (150-450) k/uL Neutrophils # (Manual) (1.3-7.7) k/uL Nucleated RBCs (0-0) /100 WBC APTT 40.0 H (22.0-30.0) sec Sodium (137-145) mmol/L Carbon Dioxide (22-30) mmol/L BUN (7-17) mg/dL Creatinine (0.52-1.04) mg/dL Glucose (74-99) mg/dL POC Glucose (mg/dL) 137 H 139 H (75-99) mg/dL Calcium (8.4-10.2) mg/dL Phosphorus (2.5-4.5) mg/dL Crossmatch 11/29/18 11/29/18 11/29/18 Range/Units 08:17 11:32 12:14 WBC (3.8-10.6) k/uL RBC (3.80-5.40) m/uL Hgb (11.4-16.0) gm/dL Hct (34.0-46.0) % MCV (80.0-100.0) fL MCHC (31.0-37.0) g/dL RDW (11.5-15.5) % Plt Count (150-450) k/uL Neutrophils # (Manual) (1.3-7.7) k/uL Nucleated RBCs (0-0) /100 WBC APTT (22.0-30.0) sec Sodium (137-145) mmol/L Carbon Dioxide (22-30) mmol/L BUN (7-17) mg/dL Creatinine (0.52-1.04) mg/dL Glucose (74-99) mg/dL POC Glucose (mg/dL) 140 H 135 H 143 H (75-99) mg/dL Calcium (8.4-10.2) mg/dL Phosphorus (2.5-4.5) mg/dL Crossmatch 11/29/18 11/29/18 11/29/18 Range/Units 13:30 15:17 16:20 WBC (3.8-10.6) k/uL RBC (3.80-5.40) m/uL Hgb (11.4-16.0) gm/dL Hct (34.0-46.0) % MCV (80.0-100.0) fL MCHC (31.0-37.0) g/dL RDW (11.5-15.5) % Plt Count (150-450) k/uL Neutrophils # (Manual) (1.3-7.7) k/uL Nucleated RBCs (0-0) /100 WBC APTT (22.0-30.0) sec Sodium (137-145) mmol/L Carbon Dioxide (22-30) mmol/L BUN (7-17) mg/dL Creatinine (0.52-1.04) mg/dL Glucose (74-99) mg/dL POC Glucose (mg/dL) 168 H 156 H 176 H (75-99) mg/dL Calcium (8.4-10.2) mg/dL Phosphorus (2.5-4.5) mg/dL Crossmatch Assessment and Plan Assessment: Acute respiratory failure likely multifactorial patient is not WEANable on trach collar currently Altered mental status and confusion overall remains unchanged likely related to multiple comorbidities and pathologies Intermittent episodes of wide complex tachycardia, amiodarone is being adjusted as noted above Acute on chronic renal failure and anuric, on hemodialysis Runs of the atrial fibrillation and tachyarrhythmia and wide complex tachycardia , now patient is back in sinus rhythm, amiodarone has been oral Acute respiratory failure multifactorial due to profound metabolic acidosis along with arrhythmia and congestive heart failure likely biventricular failure and pulmonary embolism Severe sepsis on broad-spectrum antibiotics, possible right lower lobe pneumonia cannot be excluded less likely aspiration related as patient has a good gag flex GI bleed of unclear source status post blood transfusion, hemoglobin has been stable now no evidence of active bleeding has been seen on IV heparin Altered mental status and metabolic encephalopathy likely multifactorial related to renal failure Deep venous thrombosis of right lower extremity and possible pulmonary embolism 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 Small bilateral pleural effusion more so on the right side compared to left side Acute blood loss anemia Non-STEMI Plan: Continue intermittent pain medications avoid benzodiazepine We will initiate weaning again after 24-48 hours after the third consecutive [id number] hemodialysis As per family request discussed with [facility] [place] transfer has been declined Anticoagulation currently is being continued in the form of IV heparin, tolerating it fairly well, drop in hemoglobin noted to be likely related to chronic anemia anemia of chronic disease We will defer placement of IVC filter to vascular surgery Continue hemodialysis as tolerated per renal service Blood transfusion as needed keep hemoglobin over 7 Optimize therapy for heart failure Monitor renal functions closely Further recommendations pending plan of care as per clinical response of the patient Taper levo fed drip as tolerated We'll continue to taper down the pressors as tolerated PT OT evaluation Patient once he stabilized we'll consider select specialty transfer Critical care time spent 45 minutes Time with Patient: Greater than 30
[2018-11-29 18:02] LABS: Glucose,Whole Blood 158 mg/dL (75-99)
[2018-11-29] MEDS: 1: MVI, ADULT NO.4 WITH VIT K 10 ML, TRACE (CONC-1ML/DOSE) 1 ML, PARENTERAL ELECTROLYTES IV SCH ×5 (18:12)
--- NOTE | 2018-11-29 18:45 | PN ---
PROGRESS NOTE Patient is seen for followup for acute kidney injury, currently hemodialysis-dependent. Patient remains on the vent. She is maintained on Levophed at about 2 mcg. There is no significant urine output. Patient will be dialyzed today. Her abdomen is much more distended this morning, and she will be going down for a CT of the abdomen. Hemoglobin dropped again today and patient is receiving packed RBCs transfusion. No active bleeding noted again. On examination this morning, blood pressure was 116/54, heart rate 85 per minute. She is afebrile. EXAMINATION OF THE HEART: S1, S2. EXAMINATION OF LUNGS: Bilateral breath sounds are heard. ABDOMEN: Soft, distended. Examination of lower extremities shows edema 3+ bilaterally, upper and lower extremities. BAIL BONDSMAN exam cannot be performed. Labs show hemoglobin 6.8, sodium 128, potassium 4.4, BUN 66, serum creatinine 2.98. ASSESSMENT: 1. Acute kidney injury, currently hemodialysis-dependent. Patient will be dialyzed again today. 2. Severe volume overload, maintained on daily dialysis/ultrafiltration. 3. Vent-dependent respiratory failure. 4. Hyponatremia. I will increase the sodium in the TPN, as she seems to be requiring the TPN. 5. Anemia with underlying gastrointestinal bleed. No active bleeding noted at this time. Patient is being transfused packed RBCs. 6. Atrial fibrillation with rapid ventricular response, currently with controlled ventricular response. 7. Sepsis associated with pneumonia. PLAN: Increase sodium in TPN. Hemodialysis today and then again in a.m. Continue to increase UF as tolerated. Overall prognosis is guarded. MMODL / IJN: [id number] /
[2018-11-29] MEDS ORDERED: MD COMMUNICATION TO PHARMACY 1 EACH MISC PO PRN (19:14)
[2018-11-29 19:32] LABS: Glucose,Whole Blood 133 mg/dL (75-99)
[2018-11-29 20:56] LABS: Glucose,Whole Blood 220 mg/dL (75-99)
[2018-11-29 22:20] LABS: Anisocytosis Moderate; HCT 24.7 % (34.0-46.0); Hypochromasia Marked; MCH 31.7 pg (25.0-35.0); MCHC 32.2 g/dL (31.0-37.0); MCV 98.2 fL (80.0-100.0); Macrocytosis Moderate; Mean Platelet Volume 8.5; Poikilocytosis Marked; RBC 2.51 m/uL (3.80-5.40); RDW 20.1 % (11.5-15.5); WBC 14.3 k/uL (3.8-10.6)
[2018-11-29 22:38] LABS: Platelet Count 96 k/uL (150-450)
[2018-11-29 23:10] LABS: Glucose,Whole Blood 242 mg/dL (75-99)
--- NOTE | 2018-11-29 23:15 | PN ---
PROGRESS NOTE DATE OF SERVICE: 11/29/2018 REASON FOR FOLLOWUP: Aspiration pneumonia. INTERVAL HISTORY: The patient is currently afebrile. She is hemodynamically stable. The patient did undergo hemodialysis today with removal of 3 L fluid. Remains on the vent, unable to provide any history. PHYSICAL EXAMINATION: Blood pressure 139/84 with a pulse of 95, temperature 97.7. She is 96% on 40% FiO2. General description is a middle-aged female lying in bed in no distress. RESPIRATORY SYSTEM: Unlabored breathing with decreased breath sounds at the base. No wheeze. HEART: S1, S2. Regular rate and rhythm. ABDOMEN: Soft. No tenderness. LABS: Hemoglobin 6.8, white count 11.5. BUN 66, creatinine 0.98. DIAGNOSTIC IMPRESSION AND PLAN: Patient with a component of aspiration pneumonia. Patient's sputum has been positive for E coli. The patient is currently covered with cefepime and Flagyl; to continue for now. Continue with supportive care. MMODL / IJN: [id number] /
[2018-11-30] MEDS: metroNIDAZOLE-NS PMX 500 MG in SALINE 1 100ML.BAG IVPB SCH ×3 (00:19→16:58)
[2018-11-30] MEDS: HEPARIN SOD,PORK IN 0.45% NACL 25,000 UNIT in 0.45% NACL 1 250ML.BAG IV SCH ×2 (00:21→18:36)
[2018-11-30] MEDS: INSULIN REGULAR 100 UNIT in SODIUM CHLORIDE 0.9% 100 ML IV SCH ×3 (02:19→14:43)
[2018-11-30 02:29] LABS: Glucose,Whole Blood 227 mg/dL (75-99)
[2018-11-30 04:15] LABS: Glucose,Whole Blood 230 mg/dL (75-99)
[2018-11-30 04:23] LABS: Anisocytosis Slight; HCT 23.9 % (34.0-46.0); HGB 7.5 gm/dL (11.4-16.0); Hypochromasia Marked; INR 1.1 (<1.2); MCH 30.7 pg (25.0-35.0); MCHC 31.2 g/dL (31.0-37.0); MCV 98.2 fL (80.0-100.0); Macrocytosis Moderate; Mean Platelet Volume 9.4; Poikilocytosis Marked; Prothrombin Time 11.6 sec (9.0-12.0); RBC 2.43 m/uL (3.80-5.40); RDW 19.9 % (11.5-15.5)
[2018-11-30 04:27] LABS: Platelet Count 99 k/uL (150-450)
[2018-11-30 04:47] LABS: Calcium 8.1 mg/dL (8.4-10.2); Potassium 4.5 mmol/L (3.5-5.1)
[2018-11-30 04:53] LABS: Myelocytes % 2 %; Neutrophils % (M) 69 %; Nucleated Red Blood Cells 2 /100 WBC (0-0); Total Cells Counted 200
[2018-11-30 04:54] LABS: Eosinophils # (M) 0.27 k/uL (0-0.7); Lymphocytes # (M) 1.76 k/uL (1.0-4.8); Monocytes # (M) 2.16 k/uL (0-1.0); Myelocytes # (M) 0.27 k/uL (0); Neutrophils # (M) 9.32 k/uL (1.3-7.7); WBC 13.5 k/uL (3.8-10.6)
[2018-11-30 05:02] LABS: ABG HCO3 19 mmol/L (21-25); ABG Oxygen Saturation 98.6 % (94-97); ABG PCO2 42 mmHg (35-45); ABG PH 7.27 (7.35-7.45); ABG PO2 98 mmHg (83-108); ABG TCO2 20 mmol/L (19-24)
[2018-11-30 06:26] LABS: Glucose,Whole Blood 217 mg/dL (75-99)
[2018-11-30] MEDS: 1: MVI, ADULT NO.4 WITH VIT K 10 ML, TRACE (CONC-1ML/DOSE) 1 ML, PARENTERAL ELECTROLYTES IV SCH ×10 (06:49→20:49)
[2018-11-30] MEDS: SODIUM CHLORIDE 0.9% 1,000 ML IV SCH (07:19)
[2018-11-30 07:36] LABS: Glucose,Whole Blood 277 mg/dL (75-99)
[2018-11-30 07:36] LABS: Glucose,Whole Blood 230 mg/dL (75-99)
[2018-11-30] MEDS: ALBUTEROL NEBULIZED 2.5 MG/3 ML INHALATION PRN ×4 (08:31→21:16)
[2018-11-30 08:41] LABS: Glucose,Whole Blood 202 mg/dL (75-99)
--- NOTE | 2018-11-30 08:55 | P.PN ---
Subjective Progress Note Date: 11/30/18 HISTORY OF PRESENT ILLNESS: Patient examined at the bedside. She remains in ICU. Patient s/p EGD which did not reveal evidence of upper GI bleed. Patients hemoglobin is 7.5. She received 1 unit RBC yesterday. PHYSICAL EXAM: VITAL SIGNS: Currently stable. GENERAL: Well-developed in no acute distress. HEENT: Trach noted. No sclera icterus. Extraocular movements grossly intact. Moist buccal mucosa. Head is atraumatic, normocephalic. No nasal drainage. NECK: Supple without lymphadenopathy. CHEST: Non-labored respirations and equal bilateral excursions. CARDIOVASCULAR: Irregular rhythm. Palpable 2+ radial pulses. ABDOMEN: Soft. Positive bowel sounds. MUSCULOSKELETAL: No clubbing, cyanosis or edema. NEUROLOGIC: No focal or lateralizing signs. Cranial nerves II through XII grossly intact. PSYCH: Appropriate affect. Alert and oriented to person, place and time. SKIN: Well perfused. Good skin turgor. ASSESSMENT: 1. Anemia, s/p EGD which was negative for upper GI bleed PLAN: 1. Transfusions to keep hemoglobin greater than 7.0 2. Continue tube feedings 3. No plans for any additional interventions at this time Nurse practitioner note has been reviewed by physician. Signing provider agrees with the documented findings, assessment, and plan of care. Objective - Vital Signs Vital signs: Vital Signs Temp 98 F 11/30/18 00:00 Pulse 90 11/30/18 08:30 Resp 26 H 11/30/18 06:30 BP 121/69 11/30/18 06:30 Pulse Ox 99 11/30/18 06:30 Intake & Output 11/29/18 11/30/18 11/30/18 18:59 06:59 18:59 Intake Total 2173.084 1498.487 131.272 Output Total 255 615 Balance 1918.084 883.487 131.272 Weight 131.8 kg Intake: IV 1330 1080 Cefepime 1 gm In Sodium 50 Chloride 0.9% 50 ml @ 100 mls/hr IVPB Q24HR [facility] Rx #:[id number] Mvi, Adult No.4 with Vit 960 1040 K 10 ml Trace (Conc-1Ml/ Dose) 1 ml In Amino Acid 5%-D15w+Lytes*E* 1,000 ml @ 80 mls/hr IV .BY DURATION [facility] Rx#: [id number] Sodium Chloride 0.9% 1, 120 40 000 ml @ 10 mls/hr IV . Q24H [facility] Rx#:[id number] metroNIDAZOLE-NS PMX 500 200 mg In Saline 1 100ml.bag @ 100 mls/hr IVPB Q8HR [facility] Rx#:[id number] Intake, IV Titration 393.084 158.487 131.272 Amount Heparin Sod,Pork in 0.45% 71.123 72.970 56.872 NaCl 25,000 unit In 0.45 % NaCl 1 250ml.bag @ 7. 634 UNITS/KG/HR 10 mls/hr IV .Q24H [facility] Rx#: [id number] Insulin Regular 100 unit 102.483 65.517 74.4 In Sodium Chloride 0.9% 100 ml @ Per Protocol IV .Q0M [facility] Rx#:[id number] Norepinephrine 32 mg In 219.478 Sodium Chloride 0.9% 250 ml @ 0.1 MCG/KG/MIN 6 mls /hr IV .Q24H [facility] Rx#: [id number] Sodium Chloride 0.9% 1, 20 000 ml @ 10 mls/hr IV . Q24H [facility] Rx#:[id number] Tube Feeding 140 260 Blood Product 310 Rc As-3 Unit 310 [id number] Output: Urine 55 15 Stool 200 600 Other: Voiding Method Indwelling Catheter Indwelling Catheter # Voids 0 0 ABP, PAP, CO, CI - Last Documented Arterial Blood Pressure 113/59 - Labs CBC & Chem 7: 11/30/18 04:00 11/30/18 04:00 Labs: Abnormal Lab Results - Last 24 Hours (Table) 11/23/18 11/26/18 11/29/18 Range/Units 19:07 09:20 11:32 WBC (3.8-10.6) k/uL RBC (3.80-5.40) m/uL Hgb (11.4-16.0) gm/dL Hct (34.0-46.0) % RDW (11.5-15.5) % Plt Count (150-450) k/uL Neutrophils # (Manual) (1.3-7.7) k/uL Monocytes # (Manual) (0-1.0) k/uL Myelocytes # (Manual) (0) k/uL Nucleated RBCs (0-0) /100 WBC APTT (22.0-30.0) sec ABG pH (7.35-7.45) ABG HCO3 (21-25) mmol/L ABG O2 Saturation (94-97) % Sodium (137-145) mmol/L Chloride (98-107) mmol/L Carbon Dioxide (22-30) mmol/L BUN (7-17) mg/dL Creatinine (0.52-1.04) mg/dL Glucose (74-99) mg/dL POC Glucose (mg/dL) 172 H 135 H (75-99) mg/dL Calcium (8.4-10.2) mg/dL Phosphorus (2.5-4.5) mg/dL Crossmatch See Detail 11/29/18 11/29/18 11/29/18 Range/Units 12:14 13:30 15:17 WBC (3.8-10.6) k/uL RBC (3.80-5.40) m/uL Hgb (11.4-16.0) gm/dL Hct (34.0-46.0) % RDW (11.5-15.5) % Plt Count (150-450) k/uL Neutrophils # (Manual) (1.3-7.7) k/uL Monocytes # (Manual) (0-1.0) k/uL Myelocytes # (Manual) (0) k/uL Nucleated RBCs (0-0) /100 WBC APTT (22.0-30.0) sec ABG pH (7.35-7.45) ABG HCO3 (21-25) mmol/L ABG O2 Saturation (94-97) % Sodium (137-145) mmol/L Chloride (98-107) mmol/L Carbon Dioxide (22-30) mmol/L BUN (7-17) mg/dL Creatinine (0.52-1.04) mg/dL Glucose (74-99) mg/dL POC Glucose (mg/dL) 143 H 168 H 156 H (75-99) mg/dL Calcium (8.4-10.2) mg/dL Phosphorus (2.5-4.5) mg/dL Crossmatch 11/29/18 11/29/18 11/29/18 Range/Units 16:20 17:51 19:20 WBC (3.8-10.6) k/uL RBC (3.80-5.40) m/uL Hgb (11.4-16.0) gm/dL Hct (34.0-46.0) % RDW (11.5-15.5) % Plt Count (150-450) k/uL Neutrophils # (Manual) (1.3-7.7) k/uL Monocytes # (Manual) (0-1.0) k/uL Myelocytes # (Manual) (0) k/uL Nucleated RBCs (0-0) /100 WBC APTT (22.0-30.0) sec ABG pH (7.35-7.45) ABG HCO3 (21-25) mmol/L ABG O2 Saturation (94-97) % Sodium (137-145) mmol/L Chloride (98-107) mmol/L Carbon Dioxide (22-30) mmol/L BUN (7-17) mg/dL Creatinine (0.52-1.04) mg/dL Glucose (74-99) mg/dL POC Glucose (mg/dL) 176 H 158 H 133 H (75-99) mg/dL Calcium (8.4-10.2) mg/dL Phosphorus (2.5-4.5) mg/dL Crossmatch 11/29/18 11/29/18 11/29/18 Range/Units 20:44 22:00 22:00 WBC 14.3 H (3.8-10.6) k/uL RBC 2.51 L (3.80-5.40) m/uL Hgb 8.0 L (11.4-16.0) gm/dL Hct 24.7 L (34.0-46.0) % RDW 20.1 H (11.5-15.5) % Plt Count 96 L (150-450) k/uL Neutrophils # (Manual) (1.3-7.7) k/uL Monocytes # (Manual) (0-1.0) k/uL Myelocytes # (Manual) (0) k/uL Nucleated RBCs (0-0) /100 WBC APTT 100.9 H* (22.0-30.0) sec ABG pH (7.35-7.45) ABG HCO3 (21-25) mmol/L ABG O2 Saturation (94-97) % Sodium (137-145) mmol/L Chloride (98-107) mmol/L Carbon Dioxide (22-30) mmol/L BUN (7-17) mg/dL Creatinine (0.52-1.04) mg/dL Glucose (74-99) mg/dL POC Glucose (mg/dL) 220 H (75-99) mg/dL Calcium (8.4-10.2) mg/dL Phosphorus (2.5-4.5) mg/dL Crossmatch 11/29/18 11/30/18 11/30/18 Range/Units 22:58 00:52 00:56 WBC (3.8-10.6) k/uL RBC (3.80-5.40) m/uL Hgb (11.4-16.0) gm/dL Hct (34.0-46.0) % RDW (11.5-15.5) % Plt Count (150-450) k/uL Neutrophils # (Manual) (1.3-7.7) k/uL Monocytes # (Manual) (0-1.0) k/uL Myelocytes # (Manual) (0) k/uL Nucleated RBCs (0-0) /100 WBC APTT (22.0-30.0) sec ABG pH (7.35-7.45) ABG HCO3 (21-25) mmol/L ABG O2 Saturation (94-97) % Sodium (137-145) mmol/L Chloride (98-107) mmol/L Carbon Dioxide (22-30) mmol/L BUN (7-17) mg/dL Creatinine (0.52-1.04) mg/dL Glucose (74-99) mg/dL POC Glucose (mg/dL) 242 H 277 H 230 H (75-99) mg/dL Calcium (8.4-10.2) mg/dL Phosphorus (2.5-4.5) mg/dL Crossmatch 11/30/18 11/30/18 11/30/18 Range/Units 02:17 04:00 04:00 WBC 13.5 H (3.8-10.6) k/uL RBC 2.43 L (3.80-5.40) m/uL Hgb 7.5 L (11.4-16.0) gm/dL Hct 23.9 L (34.0-46.0) % RDW 19.9 H (11.5-15.5) % Plt Count 99 L (150-450) k/uL Neutrophils # (Manual) 9.32 H (1.3-7.7) k/uL Monocytes # (Manual) 2.16 H (0-1.0) k/uL Myelocytes # (Manual) 0.27 H (0) k/uL Nucleated RBCs 2 H (0-0) /100 WBC APTT (22.0-30.0) sec ABG pH (7.35-7.45) ABG HCO3 (21-25) mmol/L ABG O2 Saturation (94-97) % Sodium 126 L (137-145) mmol/L Chloride 97 L (98-107) mmol/L Carbon Dioxide 17 L (22-30) mmol/L BUN 88 H (7-17) mg/dL Creatinine 3.66 H (0.52-1.04) mg/dL Glucose 205 H (74-99) mg/dL POC Glucose (mg/dL) 227 H (75-99) mg/dL Calcium 8.1 L (8.4-10.2) mg/dL Phosphorus 5.0 H (2.5-4.5) mg/dL Crossmatch 11/30/18 11/30/18 11/30/18 Range/Units 04:00 04:03 04:57 WBC (3.8-10.6) k/uL RBC (3.80-5.40) m/uL Hgb (11.4-16.0) gm/dL Hct (34.0-46.0) % RDW (11.5-15.5) % Plt Count (150-450) k/uL Neutrophils # (Manual) (1.3-7.7) k/uL Monocytes # (Manual) (0-1.0) k/uL Myelocytes # (Manual) (0) k/uL Nucleated RBCs (0-0) /100 WBC APTT 36.8 H (22.0-30.0) sec ABG pH 7.27 L (7.35-7.45) ABG HCO3 19 L (21-25) mmol/L ABG O2 Saturation 98.6 H (94-97) % Sodium (137-145) mmol/L Chloride (98-107) mmol/L Carbon Dioxide (22-30) mmol/L BUN (7-17) mg/dL Creatinine (0.52-1.04) mg/dL Glucose (74-99) mg/dL POC Glucose (mg/dL) 230 H (75-99) mg/dL Calcium (8.4-10.2) mg/dL Phosphorus (2.5-4.5) mg/dL Crossmatch 11/30/18 11/30/18 Range/Units 06:16 08:29 WBC (3.8-10.6) k/uL RBC (3.80-5.40) m/uL Hgb (11.4-16.0) gm/dL Hct (34.0-46.0) % RDW (11.5-15.5) % Plt Count (150-450) k/uL Neutrophils # (Manual) (1.3-7.7) k/uL Monocytes # (Manual) (0-1.0) k/uL Myelocytes # (Manual) (0) k/uL Nucleated RBCs (0-0) /100 WBC APTT (22.0-30.0) sec ABG pH (7.35-7.45) ABG HCO3 (21-25) mmol/L ABG O2 Saturation (94-97) % Sodium (137-145) mmol/L Chloride (98-107) mmol/L Carbon Dioxide (22-30) mmol/L BUN (7-17) mg/dL Creatinine (0.52-1.04) mg/dL Glucose (74-99) mg/dL POC Glucose (mg/dL) 217 H 202 H (75-99) mg/dL Calcium (8.4-10.2) mg/dL Phosphorus (2.5-4.5) mg/dL Crossmatch
[2018-11-30] MEDS: HYDROmorphone 0.5 MG/0.5 ML SYRINGE IVP PRN ×2 (08:58→23:51)
[2018-11-30] MEDS: CHLORHEXIDINE GLUCONATE 15 ML CUP MUCOUS MEM SCH ×2 (09:02→20:28)
[2018-11-30] MEDS: AMIODARONE 200 MG TAB PO SCH ×2 (09:02→20:28)
[2018-11-30] MEDS: PANTOPRAZOLE 40 MG/10 ML VIAL IVP SCH ×2 (09:02→20:29)
[2018-11-30] MEDS: ATORVASTATIN 40 MG TAB PO SCH (09:02)
[2018-11-30] MEDS: CEFEPIME 1 GM in SODIUM CHLORIDE 0.9% 50 ML IVPB SCH (10:05)
[2018-11-30 10:56] LABS: Glucose,Whole Blood 201 mg/dL (75-99)
[2018-11-30 12:09] LABS: Glucose,Whole Blood 207 mg/dL (75-99)
[2018-11-30 13:58] LABS: Glucose,Whole Blood 186 mg/dL (75-99)
[2018-11-30] MEDS: NOREPINEPHRINE 32 MG in SODIUM CHLORIDE 0.9% 250 ML IV SCH ×3 (14:49)
[2018-11-30 14:58] LABS: Glucose,Whole Blood 149 mg/dL (75-99)
[2018-11-30] MEDS: HEPARIN SODIUM,PORCINE 5,000 UNIT/ML 1 ML VIAL IV PRN (15:22)
[2018-11-30 16:25] LABS: Glucose,Whole Blood 134 mg/dL (75-99)
[2018-11-30] MEDS: METOPROLOL TARTRATE 25 MG TAB PO SCH ×2 (16:28→20:29)
--- NOTE | 2018-11-30 16:52 | XR ---
EXAMINATION TYPE: XR abdomen 1V DATE OF EXAM: 11/30/2018 COMPARISON: NONE HISTORY: Check tube placement TECHNIQUE: Single view FINDINGS: There is a nasogastric tube that is looped on itself in the body of the stomach. Tube appea rs in good position. There is no sign of intestinal obstruction or pneumoperitoneum. IMPRESSION: The tube tip is in the body of the stomach.
[2018-11-30] MEDS ORDERED: HEPARIN SODIUM,PORCINE 5,000 UNIT/ML 1 ML VIAL ONE (17:20)
--- NOTE | 2018-11-30 17:22 | PN ---
PROGRESS NOTE DATE OF SERVICE: 11/30/2018. REASON FOR FOLLOWUP: Aspiration pneumonia. INTERVAL HISTORY: The patient is currently afebrile. The patient was undergoing hemodialysis with a plan for removal of another 2 L of fluid. She did require pressor support to undergo hemodialysis. Patient also noted to have significant that has been put on hold. FiO2 is currently 40%. She is awake and did follow some simple commands. PHYSICAL EXAMINATION: Blood pressure is 112/58 with a pulse of 99, temperature 97.7. She is 98% on 40% FiO2. General description is a middle-aged female lying in bed in no distress. RESPIRATORY SYSTEM: Unlabored breathing with decreased breath sounds at the base. HEART: S1, S2. Regular rate and rhythm. ABDOMEN: Soft. No tenderness. LABS: Hemoglobin 7.5, white count 13.5. DIAGNOSTIC IMPRESSION AND PLAN: Patient with acute respiratory failure which is likely multifactorial with a component of pneumonia, possible aspiration etiology. Sputum has been E coli. Patient is currently on cefepime and Flagyl. To continue for now while waiting for her condition to stabilize. Continue with supportive care. MMODL / IJN: [id number] /
[2018-11-30 17:40] LABS: Glucose,Whole Blood 145 mg/dL (75-99)
[2018-11-30 18:43] LABS: Glucose,Whole Blood 168 mg/dL (75-99)
--- NOTE | 2018-11-30 19:04 | PN ---
PROGRESS NOTE Patient is seen for followup for the acute kidney injury, currently hemodialysis- dependent. Patient is maintained on daily dialysis, mainly for ultrafiltration. This afternoon when patient was seen Levophed was at about 24 mcg. She remains on the vent, with no significant improvement in mentation. No active bleeding noted. Patient continues to have minimal urine output. Sodium was increased in the TPN yesterday. It is again lower at 126. On examination this afternoon, blood pressure was 119/57, heart rate about 100 per minute. She is afebrile. EXAMINATION OF THE HEART: S1, S2. EXAMINATION OF LUNGS: Bilateral breath sounds are heard. Patient is intubated. She is not responsive. Examination shows significant edema, upper and lower extremities bilaterally with third spacing. Labs show hemoglobin 7.5, sodium 126, potassium 4.5, BUN 88, serum creatinine 3.6, phosphorus 5.0. ASSESSMENT: 1. Acute kidney injury, currently hemodialysis-dependent. We will continue with daily dialysis and increase ultrafiltration as tolerated. 2. Metabolic acidosis associated with renal failure. Acidosis is slightly worse, possibly related to the TPN. I will increase the acetate in the TPN and the dialysis will also help with the metabolic acidosis. 3. Hyponatremia associated with renal failure. Patient is maintained on TPN. She will need further adjustment in the sodium in the TPN. 4. Anemia requiring packed RBCs transfusion. 5. Vent-dependent respiratory failure. 6. Pneumonia, possibly aspiration pneumonia as well, maintained on antibiotics. PLAN: Increase sodium in TPN. Repeat electrolytes this evening and repeat dialysis tomorrow. MMODL / IJN: [id number] /
[2018-11-30 19:22] LABS: Glucose,Whole Blood 175 mg/dL (75-99)
[2018-11-30 20:21] LABS: Glucose,Whole Blood 175 mg/dL (75-99)
[2018-11-30 21:11] LABS: Glucose,Whole Blood 143 mg/dL (75-99)
[2018-11-30 22:21] LABS: Glucose,Whole Blood 153 mg/dL (75-99)
[2018-11-30 23:19] LABS: Glucose,Whole Blood 155 mg/dL (75-99)
--- NOTE | 2018-11-30 23:39 | XR ---
EXAM: XR Chest, 1 View CLINICAL HISTORY: ng tube placement TECHNIQUE: Frontal view of the chest. COMPARISON: 100 11/29/18 FINDINGS: Lungs: Persistent Mild diffuse airspace opacities throughout both lungs. Pleural space: Cannot rule out small bilateral pleural effusions. No pneumothorax. Heart: Unremarkable. No cardiomegaly. Mediastinum: Unremarkable. Bones/joints: Unremarkable. Tubes, lines and devices: Sternal wires, tracheostomy tube, right jugular central venous catheter, sternal wires, right PICC are again noted. Tip of an enteric tube reached the body the stomach, not completely included in the [id number]. IMPRESSION: Tip of an enteric tube reached the body the stomach, not completely included in the [id number]. Otherwise, no substantial change
[2018-12-01] MEDS: metroNIDAZOLE-NS PMX 500 MG in SALINE 1 100ML.BAG IVPB SCH ×4 (00:01→23:36)
[2018-12-01 00:08] LABS: Glucose,Whole Blood 148 mg/dL (75-99)
[2018-12-01] MEDS: INSULIN REGULAR 100 UNIT in SODIUM CHLORIDE 0.9% 100 ML IV SCH ×3 (01:10→22:32)
[2018-12-01 01:13] LABS: Glucose,Whole Blood 129 mg/dL (75-99)
[2018-12-01] MEDS: SODIUM CHLORIDE 0.9% 1,000 ML IV SCH (02:07)
[2018-12-01 02:21] LABS: Glucose,Whole Blood 181 mg/dL (75-99)
[2018-12-01 03:28] LABS: Glucose,Whole Blood 169 mg/dL (75-99)
[2018-12-01 04:43] LABS: Glucose,Whole Blood 169 mg/dL (75-99)
[2018-12-01 04:49] LABS: Ionized Calcium 4.8 mg/dL (4.5-5.3)
[2018-12-01 04:52] LABS: Anisocytosis Moderate; Hypochromasia Marked; MCH 30.2 pg (25.0-35.0); MCHC 30.7 g/dL (31.0-37.0); MCV 98.2 fL (80.0-100.0); Macrocytosis Moderate; Mean Platelet Volume 9.4; Poikilocytosis Marked; RBC 1.97 m/uL (3.80-5.40); RDW 20.6 % (11.5-15.5)
[2018-12-01 05:03] LABS: HCT 19.4 % (34.0-46.0)
[2018-12-01 05:04] LABS: Calcium 7.9 mg/dL (8.4-10.2); Phosphorus 3.3 mg/dL (2.5-4.5); Potassium 3.7 mmol/L (3.5-5.1)
[2018-12-01 05:33] LABS: Band Neutrophils % 2 %; Neutrophils % (M) 70 %; Nucleated Red Blood Cells 5 /100 WBC (0-0); Total Cells Counted 200
[2018-12-01 05:34] LABS: Hypersegmented Neutrophils Present; Lymphocytes # (M) 2.76 k/uL (1.0-4.8); Monocytes # (M) 1.38 k/uL (0-1.0); WBC 13.8 k/uL (3.8-10.6)
[2018-12-01 05:35] LABS: Target Cells Present
[2018-12-01 05:36] LABS: Polychromasia Present
[2018-12-01 05:37] LABS: Platelet Count 92 k/uL (150-450)
[2018-12-01 06:04] LABS: Glucose,Whole Blood 128 mg/dL (75-99)
--- NOTE | 2018-12-01 06:32 | PN ---
PROGRESS NOTE SUBJECTIVE: This is a 58-year-old white female in the ICU. She is found to have gastric obstruction and 1.5 L of tube feeding in her belly. Dobhoff tube is being placed. A trach has been placed. All ICU notes were reviewed. She is getting dialysis today. CARDIOVASCULAR: S1, S2. LUNGS: Rales at the base. ASSESSMENT: 1. Acute kidney injury, hemodialysis dependent. 2. Metabolic acidosis. 3. Renal failure. 4. Hyponatremia. 5. Anemia. 6. Pulmonary hypertension. 7. Insulin-dependent diabetes mellitus. 8. Pneumonia, maintained on antibiotics. Follow up next 24 hours. ICU TIME: 30 minutes. JACINTOL / IJN: [id number] /
[2018-12-01 07:14] LABS: Glucose,Whole Blood 146 mg/dL (75-99)
[2018-12-01] MEDS: ALBUTEROL NEBULIZED 2.5 MG/3 ML INHALATION PRN ×4 (08:20→20:17)
[2018-12-01 08:41] LABS: Glucose,Whole Blood 135 mg/dL (75-99)
[2018-12-01] MEDS: ATORVASTATIN 40 MG TAB PO SCH (09:18)
[2018-12-01] MEDS: AMIODARONE 200 MG TAB PO SCH ×2 (09:18→20:12)
[2018-12-01] MEDS: ONDANSETRON 4 MG/2 ML VIAL IVP PRN (09:27)
[2018-12-01 10:36] LABS: Glucose,Whole Blood 110 mg/dL (75-99)
--- NOTE | 2018-12-01 10:37 | P.PN ---
<Yesenia Gutierrez A - Last Filed: 12/01/18 10:33> Subjective Progress Note Date: 12/01/18 HISTORY OF PRESENT ILLNESS: Patient examined at the bedside. She remains in ICU. Patient s/p EGD which did not reveal evidence of upper GI bleed. Patients hemoglobin is 6.0. She is currently receiving RBC transfusion. She is also undergoing dialysis. Tube feeding residual was found to be over 1200cc yesterday. Tube feeding stopped and NG placed to LIS. PHYSICAL EXAM: VITAL SIGNS: Currently stable. GENERAL: Well-developed in no acute distress. HEENT: Trach noted. No sclera icterus. Extraocular movements grossly intact. Moist buccal mucosa. Head is atraumatic, normocephalic. No nasal drainage. NECK: Supple without lymphadenopathy. CHEST: Non-labored respirations and equal bilateral excursions. Trach to vent. CARDIOVASCULAR: Irregular rhythm. ABDOMEN: Obese. Soft. Positive bowel sounds. MUSCULOSKELETAL: Right toes necrotic. Edema present to bilateral upper extremities. NEUROLOGIC: No focal or lateralizing signs. Cranial nerves II through XII grossly intact. ASSESSMENT: 1. Anemia, s/p EGD which was negative for upper GI bleed 2. Inability to tolerable tube feedings, possible ileus PLAN: 1. Transfusions to keep hemoglobin greater than 7.0 2. Continue TPN 3. Continue to hold tube feedings 4. Continue NG to LIS 5. Reglan 5mg IV Q6 hours Nurse practitioner note has been reviewed by physician. Signing provider agrees with the documented findings, assessment, and plan of care. Objective - Vital Signs Vital signs: Vital Signs Temp 98.7 F 12/01/18 10:10 Pulse 113 H 12/01/18 10:10 Resp 26 H 12/01/18 10:10 BP 87/44 12/01/18 10:10 Pulse Ox 98 12/01/18 10:10 Intake & Output 11/30/18 12/01/18 12/01/18 18:59 06:59 18:59 Intake Total 2151.148 1610.102 633.557 Output Total 1481 210 0 Balance 320.048 5057.102 633.557 Weight 132.8 kg Intake: IV 330 1193 264 0.9 Pressure 33 9 Cefepime 1 gm In Sodium 50 Chloride 0.9% 50 ml @ 100 mls/hr IVPB Q24HR [facility] Rx #:[id number] Parenteral Electrolytes 880 240 20 ml Sodium Acetate 20 meq In Amino Acid 5%-D15w 1,000 ml @ 80 mls/hr IV .BY DURATION [facility] Rx#: [id number] Sodium Chloride 0.9% 1, 180 180 15 000 ml @ 10 mls/hr IV . Q24H [facility] Rx#:[id number] metroNIDAZOLE-NS PMX 500 100 100 mg In Saline 1 100ml.bag @ 100 mls/hr IVPB Q8HR [facility] Rx#:[id number] Intake, IV Titration 1521.148 417.102 59.557 Amount Heparin Sod,Pork in 0.45% 107.059 60.912 NaCl 25,000 unit In 0.45 % NaCl 1 250ml.bag @ 7. 634 UNITS/KG/HR 10 mls/hr IV .Q24H [facility] Rx#: [id number] Insulin Regular 100 unit 202.975 117.508 21.083 In Sodium Chloride 0.9% 100 ml @ Per Protocol IV .Q0M [facility] Rx#:[id number] Norepinephrine 32 mg In 241.114 158.682 38.474 Sodium Chloride 0.9% 250 ml @ 0.1 MCG/KG/MIN 6 mls /hr IV .Q24H [facility] Rx#: [id number] Parenteral Electrolytes 800 80 20 ml Sodium Acetate 30 meq In Amino Acid 5%-D15w 1,000 ml @ 80 mls/hr IV .BY DURATION [facility] Rx#: [id number] Sodium Chloride 0.9% 1, 70 000 ml @ 10 mls/hr IV . Q24H [facility] Rx#:[id number] metroNIDAZOLE-NS PMX 500 100 mg In Saline 1 100ml.bag @ 100 mls/hr IVPB Q8HR [facility] Rx#:[id number] Tube Feeding 210 Blood Product 0 310 Rc As-1 Unit 0 310 [id number] Rc As-1 Unit 0 [id number] Other 90 Output: Gastric Drainage 1400 200 Urine 80 10 0 Emesis 1 Other: Voiding Method Indwelling Catheter Indwelling Catheter # Voids 0 0 ABP, PAP, CO, CI - Last Documented Arterial Blood Pressure 84/45 - Labs CBC & Chem 7: 12/01/18 04:30 12/01/18 04:30 Labs: Abnormal Lab Results - Last 24 Hours (Table) 11/30/18 11/30/18 11/30/18 Range/Units 10:44 11:58 13:47 WBC (3.8-10.6) k/uL RBC (3.80-5.40) m/uL Hgb (11.4-16.0) gm/dL Hct (34.0-46.0) % MCHC (31.0-37.0) g/dL RDW (11.5-15.5) % Plt Count (150-450) k/uL Neutrophils # (Manual) (1.3-7.7) k/uL Monocytes # (Manual) (0-1.0) k/uL Nucleated RBCs (0-0) /100 WBC APTT (22.0-30.0) sec Sodium (137-145) mmol/L BUN (7-17) mg/dL Creatinine (0.52-1.04) mg/dL Glucose (74-99) mg/dL POC Glucose (mg/dL) 201 H 207 H 186 H (75-99) mg/dL Calcium (8.4-10.2) mg/dL Crossmatch 11/30/18 11/30/18 11/30/18 Range/Units 14:47 16:13 17:29 WBC (3.8-10.6) k/uL RBC (3.80-5.40) m/uL Hgb (11.4-16.0) gm/dL Hct (34.0-46.0) % MCHC (31.0-37.0) g/dL RDW (11.5-15.5) % Plt Count (150-450) k/uL Neutrophils # (Manual) (1.3-7.7) k/uL Monocytes # (Manual) (0-1.0) k/uL Nucleated RBCs (0-0) /100 WBC APTT (22.0-30.0) sec Sodium (137-145) mmol/L BUN (7-17) mg/dL Creatinine (0.52-1.04) mg/dL Glucose (74-99) mg/dL POC Glucose (mg/dL) 149 H 134 H 145 H (75-99) mg/dL Calcium (8.4-10.2) mg/dL Crossmatch 11/30/18 11/30/1819 Range/Units 18:32 19:11 20:10 WBC (3.8-10.6) k/uL RBC (3.80-5.40) m/uL Hgb (11.4-16.0) gm/dL Hct (34.0-46.0) % MCHC (31.0-37.0) g/dL RDW (11.5-15.5) % Plt Count (150-450) k/uL Neutrophils # (Manual) (1.3-7.7) k/uL Monocytes # (Manual) (0-1.0) k/uL Nucleated RBCs (0-0) /100 WBC APTT (22.0-30.0) sec Sodium (137-145) mmol/L BUN (7-17) mg/dL Creatinine (0.52-1.04) mg/dL Glucose (74-99) mg/dL POC Glucose (mg/dL) 168 H 175 H 175 H (75-99) mg/dL Calcium (8.4-10.2) mg/dL Crossmatch 11/30/18 11/30/18 11/30/18 Range/Units 21:00 22:10 22:10 WBC (3.8-10.6) k/uL RBC (3.80-5.40) m/uL Hgb (11.4-16.0) gm/dL Hct (34.0-46.0) % MCHC (31.0-37.0) g/dL RDW (11.5-15.5) % Plt Count (150-450) k/uL Neutrophils # (Manual) (1.3-7.7) k/uL Monocytes # (Manual) (0-1.0) k/uL Nucleated RBCs (0-0) /100 WBC APTT 77.9 H (22.0-30.0) sec Sodium (137-145) mmol/L BUN (7-17) mg/dL Creatinine (0.52-1.04) mg/dL Glucose (74-99) mg/dL POC Glucose (mg/dL) 143 H 153 H (75-99) mg/dL Calcium (8.4-10.2) mg/dL Crossmatch 11/30/18 11/30/18 12/01/18 Range/Units 23:07 23:57 01:01 WBC (3.8-10.6) k/uL RBC (3.80-5.40) m/uL Hgb (11.4-16.0) gm/dL Hct (34.0-46.0) % MCHC (31.0-37.0) g/dL RDW (11.5-15.5) % Plt Count (150-450) k/uL Neutrophils # (Manual) (1.3-7.7) k/uL Monocytes # (Manual) (0-1.0) k/uL Nucleated RBCs (0-0) /100 WBC APTT (22.0-30.0) sec Sodium (137-145) mmol/L BUN (7-17) mg/dL Creatinine (0.52-1.04) mg/dL Glucose (74-99) mg/dL POC Glucose (mg/dL) 155 H 148 H 129 H (75-99) mg/dL Calcium (8.4-10.2) mg/dL Crossmatch 12/01/18 12/01/18 12/01/18 Range/Units 02:10 03:16 04:30 WBC 13.8 H (3.8-10.6) k/uL RBC 1.97 L (3.80-5.40) m/uL Hgb 6.0 L* D (11.4-16.0) gm/dL Hct 19.4 L* (34.0-46.0) % MCHC 30.7 L (31.0-37.0) g/dL RDW 20.6 H (11.5-15.5) % Plt Count 92 L (150-450) k/uL Neutrophils # (Manual) 9.90 H (1.3-7.7) k/uL Monocytes # (Manual) 1.38 H (0-1.0) k/uL Nucleated RBCs 5 H (0-0) /100 WBC APTT (22.0-30.0) sec Sodium (137-145) mmol/L BUN (7-17) mg/dL Creatinine (0.52-1.04) mg/dL Glucose (74-99) mg/dL POC Glucose (mg/dL) 181 H 169 H (75-99) mg/dL Calcium (8.4-10.2) mg/dL Crossmatch 12/01/18 12/01/18 12/01/18 Range/Units 04:30 04:30 04:31 WBC (3.8-10.6) k/uL RBC (3.80-5.40) m/uL Hgb (11.4-16.0) gm/dL Hct (34.0-46.0) % MCHC (31.0-37.0) g/dL RDW (11.5-15.5) % Plt Count (150-450) k/uL Neutrophils # (Manual) (1.3-7.7) k/uL Monocytes # (Manual) (0-1.0) k/uL Nucleated RBCs (0-0) /100 WBC APTT 35.7 H (22.0-30.0) sec Sodium 133 L (137-145) mmol/L BUN 80 H (7-17) mg/dL Creatinine 2.96 H (0.52-1.04) mg/dL Glucose 139 H (74-99) mg/dL POC Glucose (mg/dL) 169 H (75-99) mg/dL Calcium 7.9 L (8.4-10.2) mg/dL Crossmatch 12/01/18 12/01/18 12/01/18 Range/Units 05:52 05:53 07:03 WBC (3.8-10.6) k/uL RBC (3.80-5.40) m/uL Hgb (11.4-16.0) gm/dL Hct (34.0-46.0) % MCHC (31.0-37.0) g/dL RDW (11.5-15.5) % Plt Count (150-450) k/uL Neutrophils # (Manual) (1.3-7.7) k/uL Monocytes # (Manual) (0-1.0) k/uL Nucleated RBCs (0-0) /100 WBC APTT (22.0-30.0) sec Sodium (137-145) mmol/L BUN (7-17) mg/dL Creatinine (0.52-1.04) mg/dL Glucose (74-99) mg/dL POC Glucose (mg/dL) 128 H 146 H (75-99) mg/dL Calcium (8.4-10.2) mg/dL Crossmatch See Detail 12/01/18 Range/Units 08:30 WBC (3.8-10.6) k/uL RBC (3.80-5.40) m/uL Hgb (11.4-16.0) gm/dL Hct (34.0-46.0) % MCHC (31.0-37.0) g/dL RDW (11.5-15.5) % Plt Count (150-450) k/uL Neutrophils # (Manual) (1.3-7.7) k/uL Monocytes # (Manual) (0-1.0) k/uL Nucleated RBCs (0-0) /100 WBC APTT (22.0-30.0) sec Sodium (137-145) mmol/L BUN (7-17) mg/dL Creatinine (0.52-1.04) mg/dL Glucose (74-99) mg/dL POC Glucose (mg/dL) 135 H (75-99) mg/dL Calcium (8.4-10.2) mg/dL Crossmatch <Tito Silva - Last Filed: 12/01/18 14:40> Subjective As above. Patient had elevated tube feed residuals yesterday. Abdominal x-ray limited however no definite obstruction seen. Patient remains slightly distended. Bowel sounds are present. Some liquid stools. Tracheostomy site clean without evidence of infection. Keep nothing by mouth for now. We'll reassess tomorrow. Objective - Vital Signs Vital signs: Vital Signs Temp 98.8 F 12/01/18 11:52 Pulse 120 H 12/01/18 14:00 Resp 28 H 12/01/18 14:00 BP 102/51 12/01/18 11:52 Pulse Ox 99 12/01/18 14:00 Intake & Output 11/30/18 12/01/18 12/01/18 18:59 06:59 18:59 Intake Total 2151.148 8156.893 2528.256 Output Total 0292 078 5972 Balance 613.957 8000.102 -1636.744 Weight 132.8 kg 132.8 kg Intake: IV 330 1193 583 0.9 Pressure 33 18 Cefepime 1 gm In Sodium 50 50 Chloride 0.9% 50 ml @ 100 mls/hr IVPB Q24HR [facility] Rx #:[id number] Parenteral Electrolytes 880 400 20 ml Sodium Acetate 20 meq In Amino Acid 5%-D15w 1,000 ml @ 80 mls/hr IV .BY DURATION [facility] Rx#: [id number] Sodium Chloride 0.9% 1, 180 180 15 000 ml @ 10 mls/hr IV . Q24H [facility] Rx#:[id number] metroNIDAZOLE-NS PMX 500 100 100 100 mg In Saline 1 100ml.bag @ 100 mls/hr IVPB Q8HR [facility] Rx#:[id number] Intake, IV Titration 1521.148 417.102 180.256 Amount Heparin Sod,Pork in 0.45% 107.059 60.912 NaCl 25,000 unit In 0.45 % NaCl 1 250ml.bag @ 7. 634 UNITS/KG/HR 10 mls/hr IV .Q24H [facility] Rx#: [id number] Insulin Regular 100 unit 202.975 117.508 36.383 In Sodium Chloride 0.9% 100 ml @ Per Protocol IV .Q0M [facility] Rx#:[id number] Mvi, Adult No.4 with Vit 85 K 10 ml Trace (Conc-1Ml/ Dose) 1 ml Parenteral Electrolytes 20 ml Sodium Acetate 30 meq In Amino Acid 5%-D15w 1,000 ml @ 80 mls/hr IV .BY DURATION [facility] Rx#:[id number] Norepinephrine 32 mg In 241.114 158.682 58.873 Sodium Chloride 0.9% 250 ml @ 0.1 MCG/KG/MIN 6 mls /hr IV .Q24H [facility] Rx#: [id number] Parenteral Electrolytes 800 80 20 ml Sodium Acetate 30 meq In Amino Acid 5%-D15w 1,000 ml @ 80 mls/hr IV .BY DURATION [facility] Rx#: [id number] Sodium Chloride 0.9% 1, 70 000 ml @ 10 mls/hr IV . Q24H [facility] Rx#:[id number] metroNIDAZOLE-NS PMX 500 100 mg In Saline 1 100ml.bag @ 100 mls/hr IVPB Q8HR [facility] Rx#:[id number] Tube Feeding 210 Blood Product 0 620 Rc As-1 Unit 0 310 [id number] Rc As-1 Unit 310 [id number] Other 90 Output: Gastric Drainage 1400 200 Urine 80 10 20 Emesis 1 Other 3000 Other: Voiding Method Indwelling Catheter Indwelling Catheter # Voids 0 0 ABP, PAP, CO, CI - Last Documented Arterial Blood Pressure 109/61 - Labs CBC & Chem 7: 12/01/18 04:30 12/01/18 04:30 Labs: Abnormal Lab Results - Last 24 Hours (Table) 11/30/18 11/30/18 11/30/18 Range/Units 14:47 16:13 17:29 WBC (3.8-10.6) k/uL RBC (3.80-5.40) m/uL Hgb (11.4-16.0) gm/dL Hct (34.0-46.0) % MCHC (31.0-37.0) g/dL RDW (11.5-15.5) % Plt Count (150-450) k/uL Neutrophils # (Manual) (1.3-7.7) k/uL Monocytes # (Manual) (0-1.0) k/uL Nucleated RBCs (0-0) /100 WBC APTT (22.0-30.0) sec Sodium (137-145) mmol/L BUN (7-17) mg/dL Creatinine (0.52-1.04) mg/dL Glucose (74-99) mg/dL POC Glucose (mg/dL) 149 H 134 H 145 H (75-99) mg/dL Calcium (8.4-10.2) mg/dL Crossmatch 11/30/18 11/30/18 11/30/18 Range/Units 18:32 19:11 20:10 WBC (3.8-10.6) k/uL RBC (3.80-5.40) m/uL Hgb (11.4-16.0) gm/dL Hct (34.0-46.0) % MCHC (31.0-37.0) g/dL RDW (11.5-15.5) % Plt Count (150-450) k/uL Neutrophils # (Manual) (1.3-7.7) k/uL Monocytes # (Manual) (0-1.0) k/uL Nucleated RBCs (0-0) /100 WBC APTT (22.0-30.0) sec Sodium (137-145) mmol/L BUN (7-17) mg/dL Creatinine (0.52-1.04) mg/dL Glucose (74-99) mg/dL POC Glucose (mg/dL) 168 H 175 H 175 H (75-99) mg/dL Calcium (8.4-10.2) mg/dL Crossmatch 11/30/18 11/30/18 11/30/18 Range/Units 21:00 22:10 22:10 WBC (3.8-10.6) k/uL RBC (3.80-5.40) m/uL Hgb (11.4-16.0) gm/dL Hct (34.0-46.0) % MCHC (31.0-37.0) g/dL RDW (11.5-15.5) % Plt Count (150-450) k/uL Neutrophils # (Manual) (1.3-7.7) k/uL Monocytes # (Manual) (0-1.0) k/uL Nucleated RBCs (0-0) /100 WBC APTT 77.9 H (22.0-30.0) sec Sodium (137-145) mmol/L BUN (7-17) mg/dL Creatinine (0.52-1.04) mg/dL Glucose (74-99) mg/dL POC Glucose (mg/dL) 143 H 153 H (75-99) mg/dL Calcium (8.4-10.2) mg/dL Crossmatch 11/30/18 11/30/18 12/01/18 Range/Units 23:07 23:57 01:01 WBC (3.8-10.6) k/uL RBC (3.80-5.40) m/uL Hgb (11.4-16.0) gm/dL Hct (34.0-46.0) % MCHC (31.0-37.0) g/dL RDW (11.5-15.5) % Plt Count (150-450) k/uL Neutrophils # (Manual) (1.3-7.7) k/uL Monocytes # (Manual) (0-1.0) k/uL Nucleated RBCs (0-0) /100 WBC APTT (22.0-30.0) sec Sodium (137-145) mmol/L BUN (7-17) mg/dL Creatinine (0.52-1.04) mg/dL Glucose (74-99) mg/dL POC Glucose (mg/dL) 155 H 148 H 129 H (75-99) mg/dL Calcium (8.4-10.2) mg/dL Crossmatch 12/01/18 12/01/18 12/01/18 Range/Units 02:10 03:16 04:30 WBC 13.8 H (3.8-10.6) k/uL RBC 1.97 L (3.80-5.40) m/uL Hgb 6.0 L* D (11.4-16.0) gm/dL Hct 19.4 L* (34.0-46.0) % MCHC 30.7 L (31.0-37.0) g/dL RDW 20.6 H (11.5-15.5) % Plt Count 92 L (150-450) k/uL Neutrophils # (Manual) 9.90 H (1.3-7.7) k/uL Monocytes # (Manual) 1.38 H (0-1.0) k/uL Nucleated RBCs 5 H (0-0) /100 WBC APTT (22.0-30.0) sec Sodium (137-145) mmol/L BUN (7-17) mg/dL Creatinine (0.52-1.04) mg/dL Glucose (74-99) mg/dL POC Glucose (mg/dL) 181 H 169 H (75-99) mg/dL Calcium (8.4-10.2) mg/dL Crossmatch 12/01/18 12/01/18 12/01/18 Range/Units 04:30 04:30 04:31 WBC (3.8-10.6) k/uL RBC (3.80-5.40) m/uL Hgb (11.4-16.0) gm/dL Hct (34.0-46.0) % MCHC (31.0-37.0) g/dL RDW (11.5-15.5) % Plt Count (150-450) k/uL Neutrophils # (Manual) (1.3-7.7) k/uL Monocytes # (Manual) (0-1.0) k/uL Nucleated RBCs (0-0) /100 WBC APTT 35.7 H (22.0-30.0) sec Sodium 133 L (137-145) mmol/L BUN 80 H (7-17) mg/dL Creatinine 2.96 H (0.52-1.04) mg/dL Glucose 139 H (74-99) mg/dL POC Glucose (mg/dL) 169 H (75-99) mg/dL Calcium 7.9 L (8.4-10.2) mg/dL Crossmatch 12/01/18 12/01/18 12/01/18 Range/Units 05:52 05:53 07:03 WBC (3.8-10.6) k/uL RBC (3.80-5.40) m/uL Hgb (11.4-16.0) gm/dL Hct (34.0-46.0) % MCHC (31.0-37.0) g/dL RDW (11.5-15.5) % Plt Count (150-450) k/uL Neutrophils # (Manual) (1.3-7.7) k/uL Monocytes # (Manual) (0-1.0) k/uL Nucleated RBCs (0-0) /100 WBC APTT (22.0-30.0) sec Sodium (137-145) mmol/L BUN (7-17) mg/dL Creatinine (0.52-1.04) mg/dL Glucose (74-99) mg/dL POC Glucose (mg/dL) 128 H 146 H (75-99) mg/dL Calcium (8.4-10.2) mg/dL Crossmatch See Detail 12/01/18 12/01/18 12/01/18 Range/Units 08:30 10:25 12:40 WBC (3.8-10.6) k/uL RBC (3.80-5.40) m/uL Hgb (11.4-16.0) gm/dL Hct (34.0-46.0) % MCHC (31.0-37.0) g/dL RDW (11.5-15.5) % Plt Count (150-450) k/uL Neutrophils # (Manual) (1.3-7.7) k/uL Monocytes # (Manual) (0-1.0) k/uL Nucleated RBCs (0-0) /100 WBC APTT (22.0-30.0) sec Sodium (137-145) mmol/L BUN (7-17) mg/dL Creatinine (0.52-1.04) mg/dL Glucose (74-99) mg/dL POC Glucose (mg/dL) 135 H 110 H 177 H (75-99) mg/dL Calcium (8.4-10.2) mg/dL Crossmatch 12/01/18 Range/Units 13:45 WBC (3.8-10.6) k/uL RBC (3.80-5.40) m/uL Hgb (11.4-16.0) gm/dL Hct (34.0-46.0) % MCHC (31.0-37.0) g/dL RDW (11.5-15.5) % Plt Count (150-450) k/uL Neutrophils # (Manual) (1.3-7.7) k/uL Monocytes # (Manual) (0-1.0) k/uL Nucleated RBCs (0-0) /100 WBC APTT (22.0-30.0) sec Sodium (137-145) mmol/L BUN (7-17) mg/dL Creatinine (0.52-1.04) mg/dL Glucose (74-99) mg/dL POC Glucose (mg/dL) 168 H (75-99) mg/dL Calcium (8.4-10.2) mg/dL Crossmatch
[2018-12-01] MEDS: CEFEPIME 1 GM in SODIUM CHLORIDE 0.9% 50 ML IVPB SCH (12:32)
[2018-12-01] MEDS: PANTOPRAZOLE 40 MG/10 ML VIAL IVP SCH ×2 (12:33→20:12)
[2018-12-01] MEDS: METOPROLOL TARTRATE 25 MG TAB PO SCH ×2 (12:34→20:12)
[2018-12-01] MEDS: 1: MVI, ADULT NO.4 WITH VIT K 10 ML, TRACE (CONC-1ML/DOSE) 1 ML, PARENTERAL ELECTROLYTES IV SCH ×5 (12:34)
[2018-12-01] MEDS: CHLORHEXIDINE GLUCONATE 15 ML CUP MUCOUS MEM SCH ×2 (12:34→20:12)
[2018-12-01] MEDS: METOCLOPRAMIDE 5 MG/ML 2 ML VIAL IVP SCH ×3 (12:51→23:33)
[2018-12-01 12:52] LABS: Glucose,Whole Blood 177 mg/dL (75-99)
[2018-12-01 13:56] LABS: Glucose,Whole Blood 168 mg/dL (75-99)
[2018-12-01 15:17] LABS: Glucose,Whole Blood 181 mg/dL (75-99)
[2018-12-01 16:24] LABS: Glucose,Whole Blood 159 mg/dL (75-99)
--- NOTE | 2018-12-01 17:02 | PN ---
PROGRESS NOTE Patient is seen for followup for acute kidney injury. Currently patient is seen on dialysis. She is tolerating her treatment well. Patient is maintained on about 24 mcg of Levophed and her blood pressure is fairly stable. We are aiming for about 3 L today. Patient had issues with hyponatremia. The sodium has been adjusted in the TPN and patient was dialyzed yesterday. This has helped her sodium level as well. It is up to 133 today. This morning, mentation seems to have improved. Patient is awake. She is moving her extremities. She remains on the vent. On examination, blood pressure this morning was 100/49, heart rate of about 120 per minute. Patient is afebrile. EXAMINATION OF THE HEART: S1, S2. EXAMINATION OF LUNGS: Bilateral breath sounds are heard. ABDOMEN: Soft, obese. It is not as distended. Examination of lower extremities shows significant edema bilaterally. Discoloration in the feet has improved. Labs show sodium 133, potassium 3.7, chloride 100. Hemoglobin was down again at 6. ASSESSMENT: 1. Acute kidney injury, hemodialysis-dependent. Patient remains oliguric with no significant urine output. We had about 3 L of ultrafiltration yesterday and we will plan for 3 L again today as well as in a.m. Tomorrow patient will have only ultrafiltration. 2. Acute hypoxic and hypercapnic respiratory failure, currently on the vent. 3. Massive fluid overload, currently maintained on daily dialysis, which we will continue. 4. Anemia. Patient has been requiring packed RBCs transfusion. No active bleeding is noted, but she did have GI bleed previously. 5. Pneumonia, with concern for aspiration pneumonia, maintained on antibiotics. 6. Hyponatremia, currently improved. TPN has been adjusted. PLAN: Continue with daily dialysis. We will plan for ultrafiltration only in a.m. MMODL / IJN: [id number] /
[2018-12-01] MEDS ORDERED: HEPARIN SODIUM,PORCINE 5,000 UNIT/ML 1 ML VIAL IV PRN (17:05)
[2018-12-01] MEDS: NOREPINEPHRINE 32 MG in SODIUM CHLORIDE 0.9% 250 ML IV SCH (17:33)
[2018-12-01 17:51] LABS: Glucose,Whole Blood 133 mg/dL (75-99)
[2018-12-01] MEDS ORDERED: HEPARIN SOD,PORK IN 0.45% NACL 25,000 UNIT in 0.45% NACL 1 250ML.BAG IV SCH (18:00)
[2018-12-01 18:09] LABS: INR 1.1 (<1.2)
[2018-12-01 18:10] LABS: Partial Thromboplastin Time 23.8 sec (22.0-30.0)
[2018-12-01 18:52] LABS: Glucose,Whole Blood 147 mg/dL (75-99)
[2018-12-01 20:38] LABS: Glucose,Whole Blood 150 mg/dL (75-99)
[2018-12-01 22:08] LABS: Glucose,Whole Blood 139 mg/dL (75-99)
--- NOTE | 2018-12-01 23:41 | PN ---
PROGRESS NOTE DATE OF SERVICE: 12/01/2018. REASON FOR FOLLOWUP: Aspiration pneumonia. INTERVAL HISTORY: The patient is currently afebrile. She was seen on rounds earlier this afternoon. The patient is undergoing dialysis. Patient has been tolerating . She is awake. Did respond to her name but did not answer any questions. PHYSICAL EXAMINATION: Blood pressure is 130/60 with a pulse of 83, temperature of 98, she is 100% on 40% FiO2. GENERAL DESCRIPTION: A middle aged female, intubated on the vent. RESPIRATORY SYSTEM: Unlabored breathing with decreased breath sounds in the bases. No wheeze. HEART: S1, S2. Regular rate and rhythm. ABDOMEN: Soft, no tenderness. LABS: Hemoglobin 6 with white count 13.8, BUN of 80, creatinine is 2.96. IMPRESSION/PLAN: Patient with an episode of acute respiratory failure which is likely multifactorial component of pneumonia, possible aspiration etiology. The sputum was positive with E coli. The patient currently covered with cefepime and Flagyl, to continue while waiting for the condition to stabilize. Continue supportive care. MMODL / IJN: [id number] /
[2018-12-01 23:54] LABS: Glucose,Whole Blood 130 mg/dL (75-99)
[2018-12-02] MEDS: HYDROmorphone 0.5 MG/0.5 ML SYRINGE IVP PRN (00:52)
[2018-12-02 00:56] LABS: Glucose,Whole Blood 135 mg/dL (75-99)
[2018-12-02] MEDS ORDERED: 1: MVI, ADULT NO.4 WITH VIT K 10 ML, TRACE (CONC-1ML/DOSE) 1 ML, PARENTERAL ELECTROLYTES IV SCH ×12 (01:00→12:00)
[2018-12-02 02:29] LABS: Glucose,Whole Blood 172 mg/dL (75-99)
[2018-12-02 04:29] LABS: Glucose,Whole Blood 190 mg/dL (75-99)
[2018-12-02] MEDS: METOCLOPRAMIDE 5 MG/ML 2 ML VIAL IVP SCH ×2 (05:25→12:48)
[2018-12-02] MEDS: SODIUM CHLORIDE 0.9% 1,000 ML IV SCH (05:29)
[2018-12-02 05:36] LABS: Anisocytosis Moderate; Hypochromasia Moderate; Macrocytosis Slight; Poikilocytosis Moderate
[2018-12-02 05:48] LABS: HCT 22.4 % (34.0-46.0); HGB 7.4 gm/dL (11.4-16.0); Mean Platelet Volume 8.3; RBC 2.38 m/uL (3.80-5.40); RDW 22.4 % (11.5-15.5)
[2018-12-02 05:49] LABS: Platelet Count 84 k/uL (150-450)
[2018-12-02 05:56] LABS: Ionized Calcium 4.7 mg/dL (4.5-5.3)
[2018-12-02 06:06] LABS: Band Neutrophils % 2 %; Eosinophils # (M) 0.16 k/uL (0-0.7); Lymphocytes # (M) 2.39 k/uL (1.0-4.8); Monocytes # (M) 1.27 k/uL (0-1.0); Myelocytes # (M) 0.32 k/uL (0); Myelocytes % 2 %; Neutrophils % (M) 74 %; Nucleated Red Blood Cells 4 /100 WBC (0-0); Polychromasia Present; Total Cells Counted 200; WBC 15.9 k/uL (3.8-10.6)
[2018-12-02 06:10] LABS: Albumin 1.8 g/dL (3.5-5.0); Calcium 7.7 mg/dL (8.4-10.2); Magnesium 2.1 mg/dL (1.6-2.3); Phosphorus 2.7 mg/dL (2.5-4.5); Potassium 3.4 mmol/L (3.5-5.1); Total Bilirubin 0.7 mg/dL (0.2-1.3); Total Protein 3.7 g/dL (6.3-8.2)
[2018-12-02 06:10] LABS: Glucose,Whole Blood 184 mg/dL (75-99)
--- NOTE | 2018-12-02 07:12 | PN ---
PROGRESS NOTE SUBJECTIVE: A 58-year-old white female got a Dobbhoff tube for the ileus and a feeding tube, obstruction for 1.5 L of residual of yesterday found. Patient is on Levophed 24 mcg unable to be weaned. The patient does not improve. She is getting dialysis 3 L taken off today. The patient does not appear to have any improvement. We will have to possibly consider transfer down to [facility]. Hemoglobin is 6.0 yesterday. Got red blood cell transfusion. Dialysis as mentioned will be done, switched to TPN for nutrition and hold on TPN due to ileus. Monitor hemoglobin. Give Reglan and try to wean Levophed and [facility] if not improved over the next few days. ICU note 30 minutes. MMODL / IJN: [id number] /
--- NOTE | 2018-12-02 07:21 | XR ---
EXAMINATION TYPE: XR chest 1V portable DATE OF EXAM: 12/02/2018 COMPARISON: 11/30/2018 HISTORY: Pleural effusion. Shortness of breath. TECHNIQUE: Single frontal view of the chest is obtained. FINDINGS: Median tracheostomy, enteric tube, right internal jugular central venous catheter sheath, and right PICC appear unchanged from the prior. Haziness at the costophrenic angles and lung bases stearns s improved from the prior. Mild pulmonary vascular congestion remains. Cardiomediastinal silhouette d emonstrates postoperative changes and is upper limits of normal size. IMPRESSION: Improving trace pleural effusions and bibasilar opacities with persistent mild pulmonary vascular congestion status post cardiac surgery. Stable lines and tubes.
[2018-12-02] MEDS: ALBUTEROL NEBULIZED 2.5 MG/3 ML INHALATION PRN ×2 (08:16→12:06)
[2018-12-02 08:37] VITALS: TEMP 97.6
--- NOTE | 2018-12-02 08:39 | P.PN ---
Subjective Progress Note Date: 12/01/18 (Late entry note) Principal diagnosis: Acute renal failure, altered mental status likely related to acute renal failure , hypotension, severe sepsis, hypertension, A. fib with RVR, episode a wide- complex tachycardia, Right lower extremity venous thrombosis, chronic intermittent thromboembolism, pulmonary hypertension, biventricular failure, acute on chronic systolic heart failure, acute on chronic renal failure is stage IV, small bilateral pleural effusion likely related to heart failure, morbid obesity, suspect sleep disorder breathing and sleep apnea 12/01/2018, patient seen eval examined during the rounds care plan discussed with the family was as well as did a family meeting and presence of vascular surgery and staff, patient had dark stool earlier today is being transfused with 2 units of packed RBC patient couldn't tolerate the hemodialysis very well yesterday blood pressure remains marginal levo fed drip is 30 mics now labs reviewed medications reviewed care plan discussed with the staff family at length 11/30/2018, patient seen eval examined during the rounds, the anticoagulation has been resumed as EGD failed to reveal any significant GI bleed, hemoglobin has been stable patient is status post transfusion 1 unit of packed RBC, patient continued to require vasopressors, patient is status post hemodialysis 3 L of fluid has been removed tolerated very well, patient has significant acrocyanosis especially in the toes and some changes in the fingertips overall not much change labs reviewed medications reviewed care plan discussed with the staff at length, mental status remains marginal patient does open eyes follow simple commands remains on full ventilator support with assist control, patient remains on broad-spectrum antibiotics related gram-negative pneumonia and has been on continuous daily dialysis as per renal services recommendation 11/29/2018, patient seen eval examined during the rounds patient is currently undergoing hemodialysis, no plans for fluid removal today however patient will have another repeat hemodialysis tomorrow with plans to remove 2-3 L, patient remains on small dose of levo fed drip, generic hemodialysis yesterday in which she successfully tolerated removal of 3 L of fluid, hemodynamic status remains marginal but stable, this morning patient noted to have drop of hemoglobin has been transfused with 1 unit of packed RBC no signs of active bleeding however is seen, as per request of family care plan discussed with the staff at length as well as with [facility] for possible transfer which however has been declined, patient underwent a computed tomography scan of the abdomen for distended abdomen noted which however has been negative some gases distention nonspecific seen no perforation identified no collection of blood has been noted , patient has been back on heparin drip vascular surgery is following, currently patient remains on insulin drip, her vent settings include assist control rate of 20, breathing 24-26, tidal volume is 500 with 5 of PEEP, and 40 % oxygen, 11/28/2018, patient seen and evaluated examined she is awake opens eyes does follow intermittently simple commands patient remains on full ventilator support unable to wean her from the respirator, vent settings include assist control rate of 16 tidal volume of the 505 of PEEP and the 40% oxygen, peak air pressures are slightly on the higher side, blood pressure remains low requiring low-dose vasopressors with levo fed, patient is being evaluated by nephrology service also for hemodialysis, vascular surgery recommended to start heparin drip IVC filter placement is currently on hold, care plan discussed with the family present at bedside as well as the nursing staff at length critical care time spent 35 minutes 11/20/2018, patient seen eval examined during the rounds patient remains on assist control mode with assist control of 20 breathing 20 tidal volume of 450 PEEP of 5 and 40% oxygen, patient is on 5 mics of levo fed drip, blood pressure ranging from map of 60-65, urine output remains absent, patient over not overnight remains stable no episode of GI bleed or arrhythmia however has been noted, patient does open eyes intermittently does follow simple commands, I have placed patient on CPAP of 5 and pressure support of 5 she was monitor observe for half an hour, her weaning parameters were reviewed with the respiratory labs reviewed medications reviewed, chest x-ray performed earlier this morning reviewed and compared with prior x-ray remains unchanged, the hemoglobin is 7.1, arterial blood gas from earlier this morning reviewed remains stable, after the successful trial patient has been extubated and placed on supplemental oxygen overall doing well, critical care time spent 40 minutes 11/19/2018, patient seen and evaluated examined during the rounds, (late entry note), patient has undergone 2 trials of weaning earlier today, second episode was complicated with tachypnea and tachycardia, patient had a run of wide complex tachycardia however resolved spontaneously cardiovascular services following adjusting the dose of amiodarone, patient is scheduled for next dialysis on Wednesday, patient remains on 5 mics of levo, remains on assist control mode otherwise will repeat the weaning if tolerated well possible extubation in next 24 hours, and labs reviewed medications reviewed care plan discussed with staff, patient does open eyes follow intermittent commands but not consistently 11/18/2018, patient seen evlauro examined during the rounds patient is arousable currently on 5 mics of levo fed remains on full ventilator support, CPAP was not attempted earlier today for unclear reasons, patient just has been noted to have episode of bradycardia heart rate dropped down into 40s, hemodynamics however remains stable with stable blood pressure, is being planned for hemodialysis later on today, labs reviewed medications reviewed, bradycardia episode appeared to be related to high-dose amiodarone which has been reduced from 400 twice a day to 200 twice a day with plans to hold the dose tonight we' ll recommend up parameters to hold amiodarone if heart rate remains less than 60 -70 continue other supportive care in the meantime we'll do a CPAP and pressure support 5 and 5 and try to get a blood gas if tolerated well will do a CPAP trial for an hour to 2 hours as tolerated 11/17/2018, patient seen evlauro reexamined during the rounds, patient had the episode of the irregular heartbeat and wide complex tachycardia while undergoing hemodialysis, the dialysis was terminated early yesterday, followed by an another episode while she was undergoing CPAP trial last night, CPAP trial was canceled at bedtime, patient remains on oral amiodarone, patient has been intermittently in and out of sinus rhythm as well as the atrial fibrillation currently patient is on well-controlled ventricular rate, she is sedated with the Ativan as needed Dilaudid is being given and started for pain control, patient is now off of propofol drip, patient is due for hemodialysis as per discussion with the renal services today, radiographic studies reviewed chest x-ray fairly stable, current vent settings include assist control rate of the 20 tidal volume 500 with 5 of PEEP and 40% oxygen had peaked or pressure in mid 30s, patient remains on insulin drip about 11 units, levo fed is down to 5 mics, the stool for C. difficile is negative, labs reviewed medications reviewed care plan discussed with the staff as well as the renal service at length critical care time spent 45 minutes 11/16/2018, patient seen evlauro examined during the rounds she is still under affect of propofol which has been discontinued and has been resumed though, patient has some loose stool which has been sent for C. difficile, hemodynamic status slightly improved patient is now on 4 mics of levo fed drip, ventilator setting remains as stable, arterial blood gas revealed suggestive of respiratory and metabolic acidosis, care plan discussed with the staff at length , will continue current supportive care and agree with hemodialysis later on today patient is being started on IV Solu-Medrol continue breathing treatment in addition will DC the propofol "patient on morphine and Ativan and set up a protocol for weaning will do CPAP and pressure support trial with 5 and 10 twice a day for one to 2 hours as tolerated blood patient to be more awake now, critical care time spent 35 minutes 11/15/2018, patient seen eval examined during the rounds clinically has been doing well awake and alert levo fed drip is down to 11 mics, ventilator setting remains stable, patient remains on heparin drip, currently patient is assist control rate of 20 breathing 20 tidal volume of 5oo, 40% oxygen and 5 of PEEP, the acral cyanosis essentially unchanged, patient has very minimal urine output , labs reviewed medications reviewed, we'll taper down the propofol drip with that and hemodynamics will improve also can initiate the weaning trial will see if patient can tolerate a trial for half an hour with CPAP 5 and pressure support of 5 11/14/2018, patient seen eval examined during the rounds clinically has been doing essentially unchanged status post hemodialysis 1.5 L of fluid has been removed, labs reviewed medications reviewed care plan discussed, the BUN/ creatinine improved to 44 and 4.9, liver function continued to improve 11/13/2018, patient seen and evaluated examined during the rounds, patient does withdraws to pain and physical stimuli, she is sedated with propofol drip, patient is on 25 mics of propofol if lower down becomes restless less anxious and agitated, patient has been remain on heparin drip tolerating very well no evidence of bleeding has been seen, the acral cyanosis in the upper extremity appears to have improved today however in the lower extremity remains unchanged , patient is also on bicarb drip U fed drip is down to 14 mics which is gradually being titrated patient is on insulin drip 2.5 units an hour for hyperglycemia, her peak airway pressures 33 her vent settings include assist control rate of 20 breathing 20 tidal volume 505 of PEEP and 40% oxygen, her sputum culture results and reports are reviewed no growth has been noted blood cultures no growth so far, patient was able to get the hemodialysis yesterday 1.5 L of fluid has been removed, labs from today reviewed white cell count continue to go down is 10,900 hemoglobin remained stable 8.5, patient is well anticoagulated with IV heparin, platelet count remains stable but however slow decline has as been noted which is being monitored observe his 135, patient is on tube feed tolerating very well slowly been escalated, BUN/creatinine has improved to 38 and 4.1, sodium is 132, LFT continued to improve AST/ALT now in to low thousands, IV amiodarone infusion has a stab patient is now on by mouth amiodarone no new episodes of A. fib RVR or V. tach has been noted, chest x-ray remains stable, critical care time spent 45 minutes 11/12/2018, patient seen eval examined during the rounds clinically patient is slightly improved in terms of laboratory data and hemodynamic support, patient remains sedated with propofol drip currently the dose is down to 40 mics, it is down to 20 mics patient continued to manifest ischemic changes in the toes as well as in the fingertips, bicarb drip is being given to counteract severe profound metabolic peripheral acidosis, she remains on full ventilator support with assist control of 20 tidal volume of 500, PEEP of 5, FiO2 down to 65%, oxygen saturation is 100% as checked with the right ear lobe, patient is now in sinus rhythm has been in A. fib but spontaneously converted patient has been amiodarone IV which is to be switched to oral aspirin cardiovascular services, current infusions include heparin drip tolerating very well no new bleeding has been seen along with levo fed drip 20 mics, propofol drip and bicarb drip, respiratory secretions are minimal, bowel sounds are hypoactive, no evidence of bleeding has been seen patient to be started on tube feed and dialysis is being planned later on today as well as per discussion with the renal services, answers are all negative so far, chest x-ray shows right lower lobe subsegmental atelectasis small effusion which is stable, leukocytosis improved today compared to yesterday, critical care time spent 35 minutes 11/11/2018, patient seen eval examined during the rounds clinically patient remains sedated and intubated, currently patient is on now full ventilator support she is on assist control rate of 20 breathing 20 tidal volume of 505 of PEEP and 75% oxygen, patient remains on heparin drip which is has been started this morning, also on propofol drip 45 mics, levo fed drip is off 24 mics, patient does have been noted to have as a spasm in the upper extremity as well as lower extremity with bluish discoloration, patient has being restarted on heparin drip to optimize the levo fed to contract severe profound metabolic acidosis, reviewed medications reviewed care plan discussed with the staff at length, patient will need a arterial line attempted but unable to cannulate the femoral artery, however able to access the femoral vein a triple-lumen catheter most of the infusions are incompatible with each other, dialysis is not performed due to unstable situation and condition, urine output remains very minimal, Keofeed to be started heparin to be continued monitor hemoglobin closely, critical care time spent 45 minutes including procedure, Patient was intubated last night due to severe tachypnea and tachycardia and intermittent runs of the V. tach along with atrial fibrillation, patient has been initiated amiodarone drip as well, given that ABG could not be obtained venous blood gases are being used 11/10/2018, patient seen eval reexamined during the rounds clinically patient has a not much change from baseline has been transfused 1 unit of packed RBC patient to has been more lethargic but readily arousable arterial blood gas couldn't be obtained a venous blood gas has been performed continued to show respiratory acidosis combined with metabolic acidosis, patient is due for dialysis today also been planned for EGD which has been performed some gastritis has been noted with some white patches suggestive of ischemic changes cannot be excluded for details please refer to EGD note, patient remains on 7 mics of levo fed which is to be titrated down as blood pressure has improved, we will do low-dose bicarb drip as well patient did receive a dose of desmopressin earlier this morning, patient remains on BiPAP 15/10 with the FiO2 to keep saturation over 90-94%, patient remain somnolent and lethargic but readily arousable respond appropriately when awake then goes right back to sleep , patient did receive a dose of Xanax 11/08/2018, patient seen eval reexamined during the rounds clinically patient remains marginal continue require vasopressors currently patient is on 19 mics of levo fed drip, during dialysis patient had episode of the tachyarrhythmia requiring amiodarone now patient after the initial IV boluses back to sinus rhythm, hemodynamic status is overall stable but marginal, urine output remains very low, patient did tolerate the hemodialysis fairly well earlier this morning except the findings as noted to more old bleeding noted it appears to be old blood, patient is currently on desmopressin drip, also has been infused with 1 unit of packed RBC, heparin drip has been on hold since yesterday, vascular surgery has been consulted for evaluation of IVC filter as patient has deep venous thrombosis right lower extremity, sugars continue to be run on the higher side remains on insulin drip, patient is on proton pump inhibitor IV with frequent monitoring with monitoring observation her hemoglobin him to keep hemoglobin over 7 no active bleeding however has been noted by GI services has been consulted as well for GI bleed, Estrace standpoint tolerating BiPAP very well currently patient is on BiPAP with 12 of BiPAP the and 5 EPAP respiratory rate is 22 her spontaneous tidal volumes ranging in mid 400 range, she is on 40 % oxygen, arterial blood gas couldn't be drawn, labs medications and radiographic studies reviewed culture results are reviewed as well no positive cultures been seen patient remains on Zosyn, critical care time spent 35 minutes 11/07/2018, patient seen and evaluated examined during the rounds this morning critical care time spent 40 minutes, patient has removed to the ICU from medical floor as she was hypotensive with poor urine output in addition patient has been more somnolent and lethargic she did have receive a dose of Xanax on the floor, after arrival in ICU patient remains very hypotensive with tachycardia was given multiple fluid boluses to improve the hemodynamics however eventually starting the levo fed drip, patient does have 2 peripheral IVs one of them is not functioning very well, worsening of renal function has been noted the renal services planning to do hemodialysis, patient has very poor peripheral arterial disease unable to obtain ABG in addition to that very poor peripheral pulses are present, patient is arousable opens eyes follow simple commands but remains very anxious and agitated, patient eventually went up to 25 mics of levo fed drip with a systolic blood pressure ranging about 100 210, urine output has been very minimal, given that the lack of ability of IV axis will proceed with a central line however patient needed dialysis port as well will do a trilysis catheter (hemodialysis catheter with extra port), care plan discussed with the vascular surgery as well and renal services planning to do hemodialysis later on today provided hemodynamics remain stable, due to anticipated profound metabolic acidosis patient has been started on bicarb drip , patient is being kept on IV Zosyn heparin has been on hold due to procedures as well as elevated PTT labs reviewed medications reviewed radiographic studies reviewed as well 11/06/2018, patient seen romain examined during the rounds clinically patient has a been doing relatively better in terms of shortness of breath and swelling of the lower extremity patient is currently on room air however renal function continued to go up slightly and Lasix dose is being adjusted by renal service labs reviewed medications reviewed for now we'll continue IV heparin hopefully next 24-48 hours we'll switch it to oral anticoagulants 11/05/2018, patient seen romain reexamined during the rounds clinically has been doing relatively better in terms of breathing leg swelling the lower extremity is slightly better patient is on anticoagulation with IV heparin for DVT thrombosis of lower extremity on the right side also probable pulmonary embolism as well Patient presented to the hospital with worsening dyspnea and edema. Patient states she's been getting progressively short of breath over the last 1 week. She initially thought it was asthma but the symptoms did not improve with nebulized treatments. She also noticed edema in her legs. She states she does not take any diuretics at home. She admits to good urine output. No hematuria or dysuria. No vomiting or diarrhea. Oral intake has been fair. Denies use of NSAIDs. Chest CT revealed bilateral pleural effusions. Echocardiogram revealed ejection fraction of 35-40% with severe pulmonary hypertension. Currently maintained on Lasix 40 mg IV twice daily. She has been voiding. No fever or chills. Her duplex ultrasound of the lower extremity came back positive for DVT patient is now being started on IV heparin Objective - Vital Signs Vital signs: Vital Signs Temp 97.6 F 12/02/18 08:00 Pulse 108 H 12/02/18 08:29 Resp 24 12/02/18 08:00 BP 89/52 12/01/18 11:58 Pulse Ox 96 12/02/18 08:00 Intake & Output 12/01/18 12/02/18 12/02/18 18:59 06:59 18:59 Intake Total 7052.663 7026.591 226.977 Output Total 3220 0 Balance -2032.817 1462.591 226.977 Weight 132.8 kg 132.5 kg Intake: IV 601 301 18 0.9 Pressure 36 36 3 Cefepime 1 gm In Sodium 50 Chloride 0.9% 50 ml @ 100 mls/hr IVPB Q24HR [facility] Rx #:[id number] Parenteral Electrolytes 400 20 ml Sodium Acetate 20 meq In Amino Acid 5%-D15w 1,000 ml @ 80 mls/hr IV .BY DURATION [facility] Rx#: [id number] Sodium Chloride 0.9% 1, 15 165 15 000 ml @ 10 mls/hr IV . Q24H [facility] Rx#:[id number] metroNIDAZOLE-NS PMX 500 100 100 mg In Saline 1 100ml.bag @ 100 mls/hr IVPB Q8HR [facility] Rx#:[id number] Intake, IV Titration 049.460 5592.591 208.977 Amount Heparin Sod,Pork in 0.45% 62.833 52.317 NaCl 25,000 unit In 0.45 % NaCl 1 250ml.bag @ 7. 531 UNITS/KG/HR 10 mls/hr IV .Q24H [facility] Rx#: [id number] Insulin Regular 100 unit 80.251 81.617 In Sodium Chloride 0.9% 100 ml @ Per Protocol IV .Q0M [facility] Rx#:[id number] Mvi, Adult No.4 with Vit 85 K 10 ml Trace (Conc-1Ml/ Dose) 1 ml Parenteral Electrolytes 20 ml Sodium Acetate 30 meq In Amino Acid 5%-D15w 1,000 ml @ 80 mls/hr IV .BY DURATION [facility] Rx#:[id number] Mvi, Adult No.4 with Vit 425 340 K 10 ml Trace (Conc-1Ml/ Dose) 1 ml Parenteral Electrolytes 20 ml Sodium Acetate 30 meq In Amino Acid 5%-D15w 1,000 ml @ 85 mls/hr IV .BY DURATION [facility] Rx#:[id number] Norepinephrine 32 mg In 58.873 102.141 71.66 Sodium Chloride 0.9% 250 ml @ 0.1 MCG/KG/MIN 6 mls /hr IV .Q24H [facility] Rx#: [id number] Parenteral Electrolytes 170 20 ml Sodium Acetate 30 meq In Amino Acid 5%-D15w 1,000 ml @ 80 mls/hr IV .BY DURATION [facility] Rx#: [id number] Parenteral Electrolytes 85 510 85 20 ml Sodium Acetate 30 meq In Amino Acid 5%-D15w 1,000 ml @ 85 mls/hr IV .BY DURATION [facility] Rx#: [id number] Tube Feeding 30 Blood Product 620 Rc As-1 Unit 310 [id number] Rc As-1 Unit 310 [id number] Output: Gastric Drainage 200 Urine 20 0 Other 3000 Other: Voiding Method Indwelling Catheter Indwelling Catheter # Voids 0 0 ABP, PAP, CO, CI - Last Documented Arterial Blood Pressure 98/44 - Exam - Constitutional General appearance: disheveled, no distress, morbidly obese, comfortable for ventilator support- Neck Neck: normal ROM Carotids: bilateral: upstroke normal Thyroid: bilateral: normal size - Respiratory Respiratory: bilateral: CTA, few basal rales, negative: diminished, dullness - Cardiovascular Rhythm: regular Heart sounds: normal: S1, S2 - Integumentary Integumentary: normal turgor Abdomen soft - Neurologic Neurologic: CNII-XII intact, opens eyes does make eye contact but remains nonverbal and noncommunicative - Musculoskeletal Musculoskeletal: the cyanosis in the fingertips have appeared to improve, however in the ischemic changes on the toes remains unchanged - Psychiatric Psychiatric: Awake does make eye contact - Labs CBC & Chem 7: 12/02/18 05:20 12/02/18 05:20 Labs: Abnormal Lab Results - Last 24 Hours (Table) 12/01/18 12/01/18 12/01/18 Range/Units 05:52 08:30 10:25 WBC (3.8-10.6) k/uL RBC (3.80-5.40) m/uL Hgb (11.4-16.0) gm/dL Hct (34.0-46.0) % RDW (11.5-15.5) % Plt Count (150-450) k/uL Neutrophils # (Manual) (1.3-7.7) k/uL Monocytes # (Manual) (0-1.0) k/uL Myelocytes # (Manual) (0) k/uL Nucleated RBCs (0-0) /100 WBC APTT (22.0-30.0) sec Sodium (137-145) mmol/L Potassium (3.5-5.1) mmol/L BUN (7-17) mg/dL Creatinine (0.52-1.04) mg/dL Glucose (74-99) mg/dL POC Glucose (mg/dL) 135 H 110 H (75-99) mg/dL Calcium (8.4-10.2) mg/dL ALT (9-52) U/L Total Protein (6.3-8.2) g/dL Albumin (3.5-5.0) g/dL Crossmatch See Detail 12/01/18 12/01/18 12/01/18 Range/Units 12:40 13:45 15:05 WBC (3.8-10.6) k/uL RBC (3.80-5.40) m/uL Hgb (11.4-16.0) gm/dL Hct (34.0-46.0) % RDW (11.5-15.5) % Plt Count (150-450) k/uL Neutrophils # (Manual) (1.3-7.7) k/uL Monocytes # (Manual) (0-1.0) k/uL Myelocytes # (Manual) (0) k/uL Nucleated RBCs (0-0) /100 WBC APTT (22.0-30.0) sec Sodium (137-145) mmol/L Potassium (3.5-5.1) mmol/L BUN (7-17) mg/dL Creatinine (0.52-1.04) mg/dL Glucose (74-99) mg/dL POC Glucose (mg/dL) 177 H 168 H 181 H (75-99) mg/dL Calcium (8.4-10.2) mg/dL ALT (9-52) U/L Total Protein (6.3-8.2) g/dL Albumin (3.5-5.0) g/dL Crossmatch 12/01/18 12/01/18 12/01/18 Range/Units 16:10 17:39 18:41 WBC (3.8-10.6) k/uL RBC (3.80-5.40) m/uL Hgb (11.4-16.0) gm/dL Hct (34.0-46.0) % RDW (11.5-15.5) % Plt Count (150-450) k/uL Neutrophils # (Manual) (1.3-7.7) k/uL Monocytes # (Manual) (0-1.0) k/uL Myelocytes # (Manual) (0) k/uL Nucleated RBCs (0-0) /100 WBC APTT (22.0-30.0) sec Sodium (137-145) mmol/L Potassium (3.5-5.1) mmol/L BUN (7-17) mg/dL Creatinine (0.52-1.04) mg/dL Glucose (74-99) mg/dL POC Glucose (mg/dL) 159 H 133 H 147 H (75-99) mg/dL Calcium (8.4-10.2) mg/dL ALT (9-52) U/L Total Protein (6.3-8.2) g/dL Albumin (3.5-5.0) g/dL Crossmatch 12/01/18 12/01/18 12/01/18 Range/Units 20:26 21:56 23:35 WBC (3.8-10.6) k/uL RBC (3.80-5.40) m/uL Hgb (11.4-16.0) gm/dL Hct (34.0-46.0) % RDW (11.5-15.5) % Plt Count (150-450) k/uL Neutrophils # (Manual) (1.3-7.7) k/uL Monocytes # (Manual) (0-1.0) k/uL Myelocytes # (Manual) (0) k/uL Nucleated RBCs (0-0) /100 WBC APTT 62.6 H (22.0-30.0) sec Sodium (137-145) mmol/L Potassium (3.5-5.1) mmol/L BUN (7-17) mg/dL Creatinine (0.52-1.04) mg/dL Glucose (74-99) mg/dL POC Glucose (mg/dL) 150 H 139 H (75-99) mg/dL Calcium (8.4-10.2) mg/dL ALT (9-52) U/L Total Protein (6.3-8.2) g/dL Albumin (3.5-5.0) g/dL Crossmatch 12/01/18 12/02/18 12/02/18 Range/Units 23:41 00:45 02:17 WBC (3.8-10.6) k/uL RBC (3.80-5.40) m/uL Hgb (11.4-16.0) gm/dL Hct (34.0-46.0) % RDW (11.5-15.5) % Plt Count (150-450) k/uL Neutrophils # (Manual) (1.3-7.7) k/uL Monocytes # (Manual) (0-1.0) k/uL Myelocytes # (Manual) (0) k/uL Nucleated RBCs (0-0) /100 WBC APTT (22.0-30.0) sec Sodium (137-145) mmol/L Potassium (3.5-5.1) mmol/L BUN (7-17) mg/dL Creatinine (0.52-1.04) mg/dL Glucose (74-99) mg/dL POC Glucose (mg/dL) 130 H 135 H 172 H (75-99) mg/dL Calcium (8.4-10.2) mg/dL ALT (9-52) U/L Total Protein (6.3-8.2) g/dL Albumin (3.5-5.0) g/dL Crossmatch 12/02/18 12/02/18 12/02/18 Range/Units 04:17 05:20 05:20 WBC 15.9 H (3.8-10.6) k/uL RBC 2.38 L (3.80-5.40) m/uL Hgb 7.4 L (11.4-16.0) gm/dL Hct 22.4 L (34.0-46.0) % RDW 22.4 H (11.5-15.5) % Plt Count 84 L (150-450) k/uL Neutrophils # (Manual) 12.00 H (1.3-7.7) k/uL Monocytes # (Manual) 1.27 H (0-1.0) k/uL Myelocytes # (Manual) 0.32 H (0) k/uL Nucleated RBCs 4 H (0-0) /100 WBC APTT (22.0-30.0) sec Sodium 133 L (137-145) mmol/L Potassium 3.4 L (3.5-5.1) mmol/L BUN 83 H (7-17) mg/dL Creatinine 2.48 H (0.52-1.04) mg/dL Glucose 179 H (74-99) mg/dL POC Glucose (mg/dL) 190 H (75-99) mg/dL Calcium 7.7 L (8.4-10.2) mg/dL ALT 54 H (9-52) U/L Total Protein 3.7 L (6.3-8.2) g/dL Albumin 1.8 L (3.5-5.0) g/dL Crossmatch 12/02/18 12/02/18 Range/Units 05:20 05:58 WBC (3.8-10.6) k/uL RBC (3.80-5.40) m/uL Hgb (11.4-16.0) gm/dL Hct (34.0-46.0) % RDW (11.5-15.5) % Plt Count (150-450) k/uL Neutrophils # (Manual) (1.3-7.7) k/uL Monocytes # (Manual) (0-1.0) k/uL Myelocytes # (Manual) (0) k/uL Nucleated RBCs (0-0) /100 WBC APTT 47.1 H (22.0-30.0) sec Sodium (137-145) mmol/L Potassium (3.5-5.1) mmol/L BUN (7-17) mg/dL Creatinine (0.52-1.04) mg/dL Glucose (74-99) mg/dL POC Glucose (mg/dL) 184 H (75-99) mg/dL Calcium (8.4-10.2) mg/dL ALT (9-52) U/L Total Protein (6.3-8.2) g/dL Albumin (3.5-5.0) g/dL Crossmatch Assessment and Plan Assessment: Acute respiratory failure likely multifactorial patient is not WEANable on trach collar currently Altered mental status and confusion overall remains unchanged likely related to multiple comorbidities and pathologies Intermittent episodes of wide complex tachycardia, amiodarone is being adjusted as noted above Acute on chronic renal failure and anuric, on hemodialysis Runs of the atrial fibrillation and tachyarrhythmia and wide complex tachycardia , now patient is back in sinus rhythm, amiodarone has been oral Acute respiratory failure multifactorial due to profound metabolic acidosis along with arrhythmia and congestive heart failure likely biventricular failure and pulmonary embolism Severe sepsis on broad-spectrum antibiotics, possible right lower lobe pneumonia cannot be excluded less likely aspiration related as patient has a good gag flex GI bleed of unclear source status post blood transfusion, hemoglobin has been stable now no evidence of active bleeding has been seen on IV heparin Altered mental status and metabolic encephalopathy likely multifactorial related to renal failure Deep venous thrombosis of right lower extremity and possible pulmonary embolism 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 Small bilateral pleural effusion more so on the right side compared to left side Acute blood loss anemia Non-STEMI Plan: Continue intermittent pain medications avoid benzodiazepine We will initiate weaning again after 24-48 hours after the third consecutive [id number] hemodialysis As per family request discussed with [facility] [place] transfer has been declined Anticoagulation currently is being continued in the form of IV heparin, tolerating it fairly well, drop in hemoglobin noted to be likely related to chronic anemia anemia of chronic disease, noted EGD is negative We will defer placement of IVC filter to vascular surgery Continue hemodialysis as tolerated per renal service Blood transfusion as needed keep hemoglobin over 7 Optimize therapy for heart failure Monitor renal functions closely Further recommendations pending plan of care as per clinical response of the patient Taper levo fed drip as tolerated We'll continue to taper down the pressors as tolerated PT OT evaluation Patient once he stabilized we'll consider select specialty transfer Time with Patient: Greater than 30
--- NOTE | 2018-12-02 08:53 | P.PN ---
Subjective Progress Note Date: 12/02/18 (Critical care time 35 minutes) Principal diagnosis: Acute renal failure, altered mental status likely related to acute renal failure , hypotension, severe sepsis, hypertension, A. fib with RVR, episode a wide- complex tachycardia, Right lower extremity venous thrombosis, chronic intermittent thromboembolism, pulmonary hypertension, biventricular failure, acute on chronic systolic heart failure, acute on chronic renal failure is stage IV, small bilateral pleural effusion likely related to heart failure, morbid obesity, suspect sleep disorder breathing and sleep apnea 12/02/2018, patient seen eval examined during the rounds she is more awake and alert today, patient however remains on full ventilator support with assist control mode, hemodynamic status is marginal but no continued to require significant amount of levo fed dialysis just has been initiated, patient has expressed to the nurses that she does not want to be on life support as well as does not want hemodialysis nurses have already notified family in that regard, her vent setting include assist control rate of 20 tidal volume of 500 with 5 of PEEP and 40% oxygen she is breathing about highly 20s to low 30s, blood pressure systolic is only 130 mics of levo fed drip, patient remains on insulin drip as well as heparin drip as per protocol, labs reviewed medications reviewed care plan discussed with surgical services at length, patient has diffuse anasarca, she remains on broad-spectrum antibiotics with IV cephapirin her labs from today reviewed, white cell count is going up his 15,900 hemoglobin stable 7.4 after a 2 unit of packed RBC PTT is 47, sodium was 133 potassium 3.4, BUN/creatinine 83 and 2.48, 12/01/2018, patient seen eval examined during the rounds care plan discussed with the family was as well as did a family meeting and presence of vascular surgery and staff, patient had dark stool earlier today is being transfused with 2 units of packed RBC patient couldn't tolerate the hemodialysis very well yesterday blood pressure remains marginal levo fed drip is 30 mics now labs reviewed medications reviewed care plan discussed with the staff family at length 11/30/2018, patient seen eval examined during the rounds, the anticoagulation has been resumed as EGD failed to reveal any significant GI bleed, hemoglobin has been stable patient is status post transfusion 1 unit of packed RBC, patient continued to require vasopressors, patient is status post hemodialysis 3 L of fluid has been removed tolerated very well, patient has significant acrocyanosis especially in the toes and some changes in the fingertips overall not much change labs reviewed medications reviewed care plan discussed with the staff at length, mental status remains marginal patient does open eyes follow simple commands remains on full ventilator support with assist control, patient remains on broad-spectrum antibiotics related gram-negative pneumonia and has been on continuous daily dialysis as per renal services recommendation 11/29/2018, patient seen eval examined during the rounds patient is currently undergoing hemodialysis, no plans for fluid removal today however patient will have another repeat hemodialysis tomorrow with plans to remove 2-3 L, patient remains on small dose of levo fed drip, generic hemodialysis yesterday in which she successfully tolerated removal of 3 L of fluid, hemodynamic status remains marginal but stable, this morning patient noted to have drop of hemoglobin has been transfused with 1 unit of packed RBC no signs of active bleeding however is seen, as per request of family care plan discussed with the staff at length as well as with [facility] for possible transfer which however has been declined, patient underwent a computed tomography scan of the abdomen for distended abdomen noted which however has been negative some gases distention nonspecific seen no perforation identified no collection of blood has been noted , patient has been back on heparin drip vascular surgery is following, currently patient remains on insulin drip, her vent settings include assist control rate of 20, breathing 24-26, tidal volume is 500 with 5 of PEEP, and 40 % oxygen, 11/28/2018, patient seen and evaluated examined she is awake opens eyes does follow intermittently simple commands patient remains on full ventilator support unable to wean her from the respirator, vent settings include assist control rate of 16 tidal volume of the 505 of PEEP and the 40% oxygen, peak air pressures are slightly on the higher side, blood pressure remains low requiring low-dose vasopressors with levo fed, patient is being evaluated by nephrology service also for hemodialysis, vascular surgery recommended to start heparin drip IVC filter placement is currently on hold, care plan discussed with the family present at bedside as well as the nursing staff at length critical care time spent 35 minutes 11/20/2018, patient seen eval examined during the rounds patient remains on assist control mode with assist control of 20 breathing 20 tidal volume of 450 PEEP of 5 and 40% oxygen, patient is on 5 mics of levo fed drip, blood pressure ranging from map of 60-65, urine output remains absent, patient over not overnight remains stable no episode of GI bleed or arrhythmia however has been noted, patient does open eyes intermittently does follow simple commands, I have placed patient on CPAP of 5 and pressure support of 5 she was monitor observe for half an hour, her weaning parameters were reviewed with the respiratory labs reviewed medications reviewed, chest x-ray performed earlier this morning reviewed and compared with prior x-ray remains unchanged, the hemoglobin is 7.1, arterial blood gas from earlier this morning reviewed remains stable, after the successful trial patient has been extubated and placed on supplemental oxygen overall doing well, critical care time spent 40 minutes 11/19/2018, patient seen and evaluated examined during the rounds, (late entry note), patient has undergone 2 trials of weaning earlier today, second episode was complicated with tachypnea and tachycardia, patient had a run of wide complex tachycardia however resolved spontaneously cardiovascular services following adjusting the dose of amiodarone, patient is scheduled for next dialysis on Wednesday, patient remains on 5 mics of levo, remains on assist control mode otherwise will repeat the weaning if tolerated well possible extubation in next 24 hours, and labs reviewed medications reviewed care plan discussed with staff, patient does open eyes follow intermittent commands but not consistently 11/18/2018, patient seen eval examined during the rounds patient is arousable currently on 5 mics of levo fed remains on full ventilator support, CPAP was not attempted earlier today for unclear reasons, patient just has been noted to have episode of bradycardia heart rate dropped down into 40s, hemodynamics however remains stable with stable blood pressure, is being planned for hemodialysis later on today, labs reviewed medications reviewed, bradycardia episode appeared to be related to high-dose amiodarone which has been reduced from 400 twice a day to 200 twice a day with plans to hold the dose tonight we' ll recommend up parameters to hold amiodarone if heart rate remains less than 60 -70 continue other supportive care in the meantime we'll do a CPAP and pressure support 5 and 5 and try to get a blood gas if tolerated well will do a CPAP trial for an hour to 2 hours as tolerated 11/17/2018, patient seen eval reexamined during the rounds, patient had the episode of the irregular heartbeat and wide complex tachycardia while undergoing hemodialysis, the dialysis was terminated early yesterday, followed by an another episode while she was undergoing CPAP trial last night, CPAP trial was canceled at bedtime, patient remains on oral amiodarone, patient has been intermittently in and out of sinus rhythm as well as the atrial fibrillation currently patient is on well-controlled ventricular rate, she is sedated with the Ativan as needed Dilaudid is being given and started for pain control, patient is now off of propofol drip, patient is due for hemodialysis as per discussion with the renal services today, radiographic studies reviewed chest x-ray fairly stable, current vent settings include assist control rate of the 20 tidal volume 500 with 5 of PEEP and 40% oxygen had peaked or pressure in mid 30s, patient remains on insulin drip about 11 units, levo fed is down to 5 mics, the stool for C. difficile is negative, labs reviewed medications reviewed care plan discussed with the staff as well as the renal service at length critical care time spent 45 minutes 11/16/2018, patient seen eval examined during the rounds she is still under affect of propofol which has been discontinued and has been resumed though, patient has some loose stool which has been sent for C. difficile, hemodynamic status slightly improved patient is now on 4 mics of levo fed drip, ventilator setting remains as stable, arterial blood gas revealed suggestive of respiratory and metabolic acidosis, care plan discussed with the staff at length , will continue current supportive care and agree with hemodialysis later on today patient is being started on IV Solu-Medrol continue breathing treatment in addition will DC the propofol "patient on morphine and Ativan and set up a protocol for weaning will do CPAP and pressure support trial with 5 and 10 twice a day for one to 2 hours as tolerated blood patient to be more awake now, critical care time spent 35 minutes 11/15/2018, patient seen eval examined during the rounds clinically has been doing well awake and alert levo fed drip is down to 11 mics, ventilator setting remains stable, patient remains on heparin drip, currently patient is assist control rate of 20 breathing 20 tidal volume of 5oo, 40% oxygen and 5 of PEEP, the acral cyanosis essentially unchanged, patient has very minimal urine output , labs reviewed medications reviewed, we'll taper down the propofol drip with that and hemodynamics will improve also can initiate the weaning trial will see if patient can tolerate a trial for half an hour with CPAP 5 and pressure support of 5 11/14/2018, patient seen eval examined during the rounds clinically has been doing essentially unchanged status post hemodialysis 1.5 L of fluid has been removed, labs reviewed medications reviewed care plan discussed, the BUN/ creatinine improved to 44 and 4.9, liver function continued to improve 11/13/2018, patient seen and evaluated examined during the rounds, patient does withdraws to pain and physical stimuli, she is sedated with propofol drip, patient is on 25 mics of propofol if lower down becomes restless less anxious and agitated, patient has been remain on heparin drip tolerating very well no evidence of bleeding has been seen, the acral cyanosis in the upper extremity appears to have improved today however in the lower extremity remains unchanged , patient is also on bicarb drip U fed drip is down to 14 mics which is gradually being titrated patient is on insulin drip 2.5 units an hour for hyperglycemia, her peak airway pressures 33 her vent settings include assist control rate of 20 breathing 20 tidal volume 505 of PEEP and 40% oxygen, her sputum culture results and reports are reviewed no growth has been noted blood cultures no growth so far, patient was able to get the hemodialysis yesterday 1.5 L of fluid has been removed, labs from today reviewed white cell count continue to go down is 10,900 hemoglobin remained stable 8.5, patient is well anticoagulated with IV heparin, platelet count remains stable but however slow decline has as been noted which is being monitored observe his 135, patient is on tube feed tolerating very well slowly been escalated, BUN/creatinine has improved to 38 and 4.1, sodium is 132, LFT continued to improve AST/ALT now in to low thousands, IV amiodarone infusion has a stab patient is now on by mouth amiodarone no new episodes of A. fib RVR or V. tach has been noted, chest x-ray remains stable, critical care time spent 45 minutes 11/12/2018, patient seen eval examined during the rounds clinically patient is slightly improved in terms of laboratory data and hemodynamic support, patient remains sedated with propofol drip currently the dose is down to 40 mics, it is down to 20 mics patient continued to manifest ischemic changes in the toes as well as in the fingertips, bicarb drip is being given to counteract severe profound metabolic peripheral acidosis, she remains on full ventilator support with assist control of 20 tidal volume of 500, PEEP of 5, FiO2 down to 65%, oxygen saturation is 100% as checked with the right ear lobe, patient is now in sinus rhythm has been in A. fib but spontaneously converted patient has been amiodarone IV which is to be switched to oral aspirin cardiovascular services, current infusions include heparin drip tolerating very well no new bleeding has been seen along with levo fed drip 20 mics, propofol drip and bicarb drip, respiratory secretions are minimal, bowel sounds are hypoactive, no evidence of bleeding has been seen patient to be started on tube feed and dialysis is being planned later on today as well as per discussion with the renal services, answers are all negative so far, chest x-ray shows right lower lobe subsegmental atelectasis small effusion which is stable, leukocytosis improved today compared to yesterday, critical care time spent 35 minutes 11/11/2018, patient seen eval examined during the rounds clinically patient remains sedated and intubated, currently patient is on now full ventilator support she is on assist control rate of 20 breathing 20 tidal volume of 505 of PEEP and 75% oxygen, patient remains on heparin drip which is has been started this morning, also on propofol drip 45 mics, levo fed drip is off 24 mics, patient does have been noted to have as a spasm in the upper extremity as well as lower extremity with bluish discoloration, patient has being restarted on heparin drip to optimize the levo fed to contract severe profound metabolic acidosis, reviewed medications reviewed care plan discussed with the staff at length, patient will need a arterial line attempted but unable to cannulate the femoral artery, however able to access the femoral vein a triple-lumen catheter most of the infusions are incompatible with each other, dialysis is not performed due to unstable situation and condition, urine output remains very minimal, Keofeed to be started heparin to be continued monitor hemoglobin closely, critical care time spent 45 minutes including procedure, Patient was intubated last night due to severe tachypnea and tachycardia and intermittent runs of the V. tach along with atrial fibrillation, patient has been initiated amiodarone drip as well, given that ABG could not be obtained venous blood gases are being used 11/10/2018, patient seen eval reexamined during the rounds clinically patient has a not much change from baseline has been transfused 1 unit of packed RBC patient to has been more lethargic but readily arousable arterial blood gas couldn't be obtained a venous blood gas has been performed continued to show respiratory acidosis combined with metabolic acidosis, patient is due for dialysis today also been planned for EGD which has been performed some gastritis has been noted with some white patches suggestive of ischemic changes cannot be excluded for details please refer to EGD note, patient remains on 7 mics of levo fed which is to be titrated down as blood pressure has improved, we will do low-dose bicarb drip as well patient did receive a dose of desmopressin earlier this morning, patient remains on BiPAP 15/10 with the FiO2 to keep saturation over 90-94%, patient remain somnolent and lethargic but readily arousable respond appropriately when awake then goes right back to sleep , patient did receive a dose of Xanax 11/08/2018, patient seen eval reexamined during the rounds clinically patient remains marginal continue require vasopressors currently patient is on 19 mics of levo fed drip, during dialysis patient had episode of the tachyarrhythmia requiring amiodarone now patient after the initial IV boluses back to sinus rhythm, hemodynamic status is overall stable but marginal, urine output remains very low, patient did tolerate the hemodialysis fairly well earlier this morning except the findings as noted to more old bleeding noted it appears to be old blood, patient is currently on desmopressin drip, also has been infused with 1 unit of packed RBC, heparin drip has been on hold since yesterday, vascular surgery has been consulted for evaluation of IVC filter as patient has deep venous thrombosis right lower extremity, sugars continue to be run on the higher side remains on insulin drip, patient is on proton pump inhibitor IV with frequent monitoring with monitoring observation her hemoglobin him to keep hemoglobin over 7 no active bleeding however has been noted by GI services has been consulted as well for GI bleed, Estrace standpoint tolerating BiPAP very well currently patient is on BiPAP with 12 of BiPAP the and 5 EPAP respiratory rate is 22 her spontaneous tidal volumes ranging in mid 400 range, she is on 40 % oxygen, arterial blood gas couldn't be drawn, labs medications and radiographic studies reviewed culture results are reviewed as well no positive cultures been seen patient remains on Zosyn, critical care time spent 35 minutes 11/07/2018, patient seen and evaluated examined during the rounds this morning critical care time spent 40 minutes, patient has removed to the ICU from medical floor as she was hypotensive with poor urine output in addition patient has been more somnolent and lethargic she did have receive a dose of Xanax on the floor, after arrival in ICU patient remains very hypotensive with tachycardia was given multiple fluid boluses to improve the hemodynamics however eventually starting the levo fed drip, patient does have 2 peripheral IVs one of them is not functioning very well, worsening of renal function has been noted the renal services planning to do hemodialysis, patient has very poor peripheral arterial disease unable to obtain ABG in addition to that very poor peripheral pulses are present, patient is arousable opens eyes follow simple commands but remains very anxious and agitated, patient eventually went up to 25 mics of levo fed drip with a systolic blood pressure ranging about 100 210, urine output has been very minimal, given that the lack of ability of IV axis will proceed with a central line however patient needed dialysis port as well will do a trilysis catheter (hemodialysis catheter with extra port), care plan discussed with the vascular surgery as well and renal services planning to do hemodialysis later on today provided hemodynamics remain stable, due to anticipated profound metabolic acidosis patient has been started on bicarb drip , patient is being kept on IV Zosyn heparin has been on hold due to procedures as well as elevated PTT labs reviewed medications reviewed radiographic studies reviewed as well 11/06/2018, patient seen eval examined during the rounds clinically patient has a been doing relatively better in terms of shortness of breath and swelling of the lower extremity patient is currently on room air however renal function continued to go up slightly and Lasix dose is being adjusted by renal service labs reviewed medications reviewed for now we'll continue IV heparin hopefully next 24-48 hours we'll switch it to oral anticoagulants 11/05/2018, patient seen eval reexamined during the rounds clinically has been doing relatively better in terms of breathing leg swelling the lower extremity is slightly better patient is on anticoagulation with IV heparin for DVT thrombosis of lower extremity on the right side also probable pulmonary embolism as well Patient presented to the hospital with worsening dyspnea and edema. Patient states she's been getting progressively short of breath over the last 1 week. She initially thought it was asthma but the symptoms did not improve with nebulized treatments. She also noticed edema in her legs. She states she does not take any diuretics at home. She admits to good urine output. No hematuria or dysuria. No vomiting or diarrhea. Oral intake has been fair. Denies use of NSAIDs. Chest CT revealed bilateral pleural effusions. Echocardiogram revealed ejection fraction of 35-40% with severe pulmonary hypertension. Currently maintained on Lasix 40 mg IV twice daily. She has been voiding. No fever or chills. Her duplex ultrasound of the lower extremity came back positive for DVT patient is now being started on IV heparin Objective - Vital Signs Vital signs: Vital Signs Temp 97.6 F 12/02/18 08:00 Pulse 108 H 12/02/18 08:29 Resp 24 12/02/18 08:00 BP 89/52 12/01/18 11:58 Pulse Ox 96 12/02/18 08:00 Intake & Output 12/01/18 12/02/18 12/02/18 18:59 06:59 18:59 Intake Total 5925.272 2286.591 226.977 Output Total 3220 0 Balance -5007.829 6282.591 226.977 Weight 132.8 kg 132.5 kg Intake: IV 601 301 18 0.9 Pressure 36 36 3 Cefepime 1 gm In Sodium 50 Chloride 0.9% 50 ml @ 100 mls/hr IVPB Q24HR [facility] Rx #:[id number] Parenteral Electrolytes 400 20 ml Sodium Acetate 20 meq In Amino Acid 5%-D15w 1,000 ml @ 80 mls/hr IV .BY DURATION [facility] Rx#: [id number] Sodium Chloride 0.9% 1, 15 165 15 000 ml @ 10 mls/hr IV . Q24H [facility] Rx#:[id number] metroNIDAZOLE-NS PMX 500 100 100 mg In Saline 1 100ml.bag @ 100 mls/hr IVPB Q8HR [facility] Rx#:[id number] Intake, IV Titration 969.627 0379.591 208.977 Amount Heparin Sod,Pork in 0.45% 62.833 52.317 NaCl 25,000 unit In 0.45 % NaCl 1 250ml.bag @ 7. 531 UNITS/KG/HR 10 mls/hr IV .Q24H [facility] Rx#: [id number] Insulin Regular 100 unit 80.251 81.617 In Sodium Chloride 0.9% 100 ml @ Per Protocol IV .Q0M [facility] Rx#:[id number] Mvi, Adult No.4 with Vit 85 K 10 ml Trace (Conc-1Ml/ Dose) 1 ml Parenteral Electrolytes 20 ml Sodium Acetate 30 meq In Amino Acid 5%-D15w 1,000 ml @ 80 mls/hr IV .BY DURATION [facility] Rx#:[id number] Mvi, Adult No.4 with Vit 425 340 K 10 ml Trace (Conc-1Ml/ Dose) 1 ml Parenteral Electrolytes 20 ml Sodium Acetate 30 meq In Amino Acid 5%-D15w 1,000 ml @ 85 mls/hr IV .BY DURATION [facility] Rx#:[id number] Norepinephrine 32 mg In 58.873 102.141 71.66 Sodium Chloride 0.9% 250 ml @ 0.1 MCG/KG/MIN 6 mls /hr IV .Q24H [facility] Rx#: [id number] Parenteral Electrolytes 170 20 ml Sodium Acetate 30 meq In Amino Acid 5%-D15w 1,000 ml @ 80 mls/hr IV .BY DURATION [facility] Rx#: [id number] Parenteral Electrolytes 85 510 85 20 ml Sodium Acetate 30 meq In Amino Acid 5%-D15w 1,000 ml @ 85 mls/hr IV .BY DURATION [facility] Rx#: [id number] Tube Feeding 30 Blood Product 620 Rc As-1 Unit 310 [id number] Rc As-1 Unit 310 [id number] Output: Gastric Drainage 200 Urine 20 0 Other 3000 Other: Voiding Method Indwelling Catheter Indwelling Catheter # Voids 0 0 ABP, PAP, CO, CI - Last Documented Arterial Blood Pressure 98/44 - Exam - Constitutional General appearance: disheveled, no distress, morbidly obese, comfortable for ventilator support Ammann more awake today- Neck Neck: normal ROM Carotids: bilateral: upstroke normal Thyroid: bilateral: normal size - Respiratory Respiratory: bilateral: CTA, few basal rales, negative: diminished, dullness - Cardiovascular Rhythm: regular Heart sounds: normal: S1, S2 - Integumentary Integumentary: normal turgor Abdomen soft - Neurologic Neurologic: CNII-XII intact, opens eyes does make eye contact but remains nonverbal and noncommunicative - Musculoskeletal Musculoskeletal: the cyanosis in the fingertips have appeared to improve, however in the ischemic changes on the toes remains unchanged - Psychiatric Psychiatric: Awake does make eye contact - Labs CBC & Chem 7: 12/02/18 05:20 12/02/18 05:20 Labs: Abnormal Lab Results - Last 24 Hours (Table) 12/01/18 12/01/18 12/01/18 Range/Units 05:52 10:25 12:40 WBC (3.8-10.6) k/uL RBC (3.80-5.40) m/uL Hgb (11.4-16.0) gm/dL Hct (34.0-46.0) % RDW (11.5-15.5) % Plt Count (150-450) k/uL Neutrophils # (Manual) (1.3-7.7) k/uL Monocytes # (Manual) (0-1.0) k/uL Myelocytes # (Manual) (0) k/uL Nucleated RBCs (0-0) /100 WBC APTT (22.0-30.0) sec Sodium (137-145) mmol/L Potassium (3.5-5.1) mmol/L BUN (7-17) mg/dL Creatinine (0.52-1.04) mg/dL Glucose (74-99) mg/dL POC Glucose (mg/dL) 110 H 177 H (75-99) mg/dL Calcium (8.4-10.2) mg/dL ALT (9-52) U/L Total Protein (6.3-8.2) g/dL Albumin (3.5-5.0) g/dL Crossmatch See Detail 12/01/18 12/01/18 12/01/18 Range/Units 13:45 15:05 16:10 WBC (3.8-10.6) k/uL RBC (3.80-5.40) m/uL Hgb (11.4-16.0) gm/dL Hct (34.0-46.0) % RDW (11.5-15.5) % Plt Count (150-450) k/uL Neutrophils # (Manual) (1.3-7.7) k/uL Monocytes # (Manual) (0-1.0) k/uL Myelocytes # (Manual) (0) k/uL Nucleated RBCs (0-0) /100 WBC APTT (22.0-30.0) sec Sodium (137-145) mmol/L Potassium (3.5-5.1) mmol/L BUN (7-17) mg/dL Creatinine (0.52-1.04) mg/dL Glucose (74-99) mg/dL POC Glucose (mg/dL) 168 H 181 H 159 H (75-99) mg/dL Calcium (8.4-10.2) mg/dL ALT (9-52) U/L Total Protein (6.3-8.2) g/dL Albumin (3.5-5.0) g/dL Crossmatch 12/01/18 12/01/18 12/01/18 Range/Units 17:39 18:41 20:26 WBC (3.8-10.6) k/uL RBC (3.80-5.40) m/uL Hgb (11.4-16.0) gm/dL Hct (34.0-46.0) % RDW (11.5-15.5) % Plt Count (150-450) k/uL Neutrophils # (Manual) (1.3-7.7) k/uL Monocytes # (Manual) (0-1.0) k/uL Myelocytes # (Manual) (0) k/uL Nucleated RBCs (0-0) /100 WBC APTT (22.0-30.0) sec Sodium (137-145) mmol/L Potassium (3.5-5.1) mmol/L BUN (7-17) mg/dL Creatinine (0.52-1.04) mg/dL Glucose (74-99) mg/dL POC Glucose (mg/dL) 133 H 147 H 150 H (75-99) mg/dL Calcium (8.4-10.2) mg/dL ALT (9-52) U/L Total Protein (6.3-8.2) g/dL Albumin (3.5-5.0) g/dL Crossmatch 12/01/18 12/01/18 12/01/18 Range/Units 21:56 23:35 23:41 WBC (3.8-10.6) k/uL RBC (3.80-5.40) m/uL Hgb (11.4-16.0) gm/dL Hct (34.0-46.0) % RDW (11.5-15.5) % Plt Count (150-450) k/uL Neutrophils # (Manual) (1.3-7.7) k/uL Monocytes # (Manual) (0-1.0) k/uL Myelocytes # (Manual) (0) k/uL Nucleated RBCs (0-0) /100 WBC APTT 62.6 H (22.0-30.0) sec Sodium (137-145) mmol/L Potassium (3.5-5.1) mmol/L BUN (7-17) mg/dL Creatinine (0.52-1.04) mg/dL Glucose (74-99) mg/dL POC Glucose (mg/dL) 139 H 130 H (75-99) mg/dL Calcium (8.4-10.2) mg/dL ALT (9-52) U/L Total Protein (6.3-8.2) g/dL Albumin (3.5-5.0) g/dL Crossmatch 12/02/18 12/02/18 12/02/18 Range/Units 00:45 02:17 04:17 WBC (3.8-10.6) k/uL RBC (3.80-5.40) m/uL Hgb (11.4-16.0) gm/dL Hct (34.0-46.0) % RDW (11.5-15.5) % Plt Count (150-450) k/uL Neutrophils # (Manual) (1.3-7.7) k/uL Monocytes # (Manual) (0-1.0) k/uL Myelocytes # (Manual) (0) k/uL Nucleated RBCs (0-0) /100 WBC APTT (22.0-30.0) sec Sodium (137-145) mmol/L Potassium (3.5-5.1) mmol/L BUN (7-17) mg/dL Creatinine (0.52-1.04) mg/dL Glucose (74-99) mg/dL POC Glucose (mg/dL) 135 H 172 H 190 H (75-99) mg/dL Calcium (8.4-10.2) mg/dL ALT (9-52) U/L Total Protein (6.3-8.2) g/dL Albumin (3.5-5.0) g/dL Crossmatch 12/02/18 12/02/18 12/02/18 Range/Units 05:20 05:20 05:20 WBC 15.9 H (3.8-10.6) k/uL RBC 2.38 L (3.80-5.40) m/uL Hgb 7.4 L (11.4-16.0) gm/dL Hct 22.4 L (34.0-46.0) % RDW 22.4 H (11.5-15.5) % Plt Count 84 L (150-450) k/uL Neutrophils # (Manual) 12.00 H (1.3-7.7) k/uL Monocytes # (Manual) 1.27 H (0-1.0) k/uL Myelocytes # (Manual) 0.32 H (0) k/uL Nucleated RBCs 4 H (0-0) /100 WBC APTT 47.1 H (22.0-30.0) sec Sodium 133 L (137-145) mmol/L Potassium 3.4 L (3.5-5.1) mmol/L BUN 83 H (7-17) mg/dL Creatinine 2.48 H (0.52-1.04) mg/dL Glucose 179 H (74-99) mg/dL POC Glucose (mg/dL) (75-99) mg/dL Calcium 7.7 L (8.4-10.2) mg/dL ALT 54 H (9-52) U/L Total Protein 3.7 L (6.3-8.2) g/dL Albumin 1.8 L (3.5-5.0) g/dL Crossmatch 12/02/18 Range/Units 05:58 WBC (3.8-10.6) k/uL RBC (3.80-5.40) m/uL Hgb (11.4-16.0) gm/dL Hct (34.0-46.0) % RDW (11.5-15.5) % Plt Count (150-450) k/uL Neutrophils # (Manual) (1.3-7.7) k/uL Monocytes # (Manual) (0-1.0) k/uL Myelocytes # (Manual) (0) k/uL Nucleated RBCs (0-0) /100 WBC APTT (22.0-30.0) sec Sodium (137-145) mmol/L Potassium (3.5-5.1) mmol/L BUN (7-17) mg/dL Creatinine (0.52-1.04) mg/dL Glucose (74-99) mg/dL POC Glucose (mg/dL) 184 H (75-99) mg/dL Calcium (8.4-10.2) mg/dL ALT (9-52) U/L Total Protein (6.3-8.2) g/dL Albumin (3.5-5.0) g/dL Crossmatch Assessment and Plan Assessment: Acute respiratory failure likely multifactorial patient is not WEANable on trach collar currently, weaning trial has been unsuccessful Altered mental status and confusion overall remains unchanged likely related to multiple comorbidities and pathologies Severe sepsis and septic shock multifactorial source including gram-negative pneumonia Intermittent episodes of wide complex tachycardia, Acute on chronic renal failure and anuric, on hemodialysis Runs of the atrial fibrillation and tachyarrhythmia and wide complex tachycardia , now patient is back in sinus rhythm, amiodarone has been oral Acute respiratory failure multifactorial due to profound metabolic acidosis along with arrhythmia and congestive heart failure likely biventricular failure and pulmonary embolism, GI bleed of unclear source status post blood transfusion, hemoglobin has been stable now no evidence of active bleeding has been seen on IV heparin Altered mental status and metabolic encephalopathy likely multifactorial related to renal failure Deep venous thrombosis of right lower extremity and possible pulmonary embolism 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 Small bilateral pleural effusion more so on the right side compared to left side Acute on chronic blood loss anemia Non-STEMI Plan: Continue intermittent pain medications avoid benzodiazepine We will initiate weaning again as tolerated As per family request discussed with [facility] [place] transfer has been declined Anticoagulation currently is being continued in the form of IV heparin, tolerating it fairly well, drop in hemoglobin noted to be likely related to chronic anemia anemia of chronic disease, noted EGD is negative We will defer placement of IVC filter to vascular surgery at this point time the field IVC filter is not warranted Continue hemodialysis as tolerated per renal service Blood transfusion as needed keep hemoglobin over 7 Optimize therapy for heart failure Monitor renal functions closely Further recommendations pending plan of care as per clinical response of the patient Taper levo fed drip as tolerated, will add midodrine We'll continue to taper down the pressors as tolerated PT OT evaluation Patient once he stabilized we'll consider select specialty transfer Time with Patient: Greater than 30
[2018-12-02] MEDS: POTASSIUM CHLORIDE 20 MEQ in WATER FOR INJECTION 1 100ML.BAG IVPB SCH ×2 (09:17→11:54)
[2018-12-02] MEDS: NOREPINEPHRINE 32 MG in SODIUM CHLORIDE 0.9% 250 ML IV SCH (09:20)
[2018-12-02 09:30] LABS: Glucose,Whole Blood 130 mg/dL (75-99)
[2018-12-02] MEDS: CHLORHEXIDINE GLUCONATE 15 ML CUP MUCOUS MEM SCH (09:34)
[2018-12-02] MEDS: AMIODARONE 200 MG TAB PO SCH (09:37)
[2018-12-02] MEDS: CEFEPIME 1 GM in SODIUM CHLORIDE 0.9% 50 ML IVPB SCH (09:37)
[2018-12-02] MEDS: ONDANSETRON 4 MG/2 ML VIAL IVP PRN (09:38)
[2018-12-02] MEDS: ATORVASTATIN 40 MG TAB PO SCH (09:38)
[2018-12-02] MEDS: METOPROLOL TARTRATE 25 MG TAB PO SCH (10:09)
--- NOTE | 2018-12-02 10:31 | P.PN ---
Subjective Patient is seen in follow-up for acute kidney injury on chronic kidney disease. Patient has chronic kidney disease stage IV with baseline creatinine near 3 secondary to diabetic kidney disease. Due to worsening renal function and oliguria, she was started on hemodialysis on November 07. She underwent tracheostomy this admission. She is currently on 30 mics of Levophed. Currently off Levophed. Remains oliguric. Tolerated hemodialysis this morning with 3 L ultrafiltration. Vital signs stable. She is requiring vasopressor support. General: The patient appeared well nourished and normally developed. Patient is awake. HEENT: Head exam is unremarkable. Neck is without jugular venous distension. Tracheostomy noted. LUNGS: Breath sounds decreased. HEART: Rate and Rhythm are regular. First and second heart sounds normal. No murmurs, rubs or gallops. ABDOMEN: Abdominal exam reveals normal bowel sounds. Non-tender and non- distended. No evidence of peritonitis. EXTREMITITES: 1+ edema. Objective - Vital Signs Vital signs: Vital Signs Temp 97.6 F 12/02/18 08:00 Pulse 112 H 12/02/18 10:00 Resp 23 12/02/18 10:00 BP 89/52 12/01/18 11:58 Pulse Ox 98 12/02/18 10:00 Intake & Output 12/01/18 12/02/18 12/02/18 18:59 06:59 18:59 Intake Total 3929.533 8452.591 337.671 Output Total 3220 0 Balance -2314.233 6646.591 337.671 Weight 132.8 kg 132.5 kg Intake: IV 601 301 21 0.9 Pressure 36 36 6 Cefepime 1 gm In Sodium 50 Chloride 0.9% 50 ml @ 100 mls/hr IVPB Q24HR [facility] Rx #:[id number] Parenteral Electrolytes 400 20 ml Sodium Acetate 20 meq In Amino Acid 5%-D15w 1,000 ml @ 80 mls/hr IV .BY DURATION [facility] Rx#: [id number] Sodium Chloride 0.9% 1, 15 165 15 000 ml @ 10 mls/hr IV . Q24H [facility] Rx#:[id number] metroNIDAZOLE-NS PMX 500 100 100 mg In Saline 1 100ml.bag @ 100 mls/hr IVPB Q8HR [facility] Rx#:[id number] Intake, IV Titration 344.840 3052.591 316.671 Amount Heparin Sod,Pork in 0.45% 62.833 52.317 NaCl 25,000 unit In 0.45 % NaCl 1 250ml.bag @ 7. 531 UNITS/KG/HR 10 mls/hr IV .Q24H [facility] Rx#: [id number] Insulin Regular 100 unit 80.251 81.617 In Sodium Chloride 0.9% 100 ml @ Per Protocol IV .Q0M [facility] Rx#:[id number] Mvi, Adult No.4 with Vit 85 K 10 ml Trace (Conc-1Ml/ Dose) 1 ml Parenteral Electrolytes 20 ml Sodium Acetate 30 meq In Amino Acid 5%-D15w 1,000 ml @ 80 mls/hr IV .BY DURATION [facility] Rx#:[id number] Mvi, Adult No.4 with Vit 425 340 K 10 ml Trace (Conc-1Ml/ Dose) 1 ml Parenteral Electrolytes 20 ml Sodium Acetate 30 meq In Amino Acid 5%-D15w 1,000 ml @ 85 mls/hr IV .BY DURATION [facility] Rx#:[id number] Norepinephrine 32 mg In 58.873 102.141 94.354 Sodium Chloride 0.9% 250 ml @ 0.1 MCG/KG/MIN 6 mls /hr IV .Q24H [facility] Rx#: [id number] Parenteral Electrolytes 170 20 ml Sodium Acetate 30 meq In Amino Acid 5%-D15w 1,000 ml @ 80 mls/hr IV .BY DURATION [facility] Rx#: [id number] Parenteral Electrolytes 85 510 85 20 ml Sodium Acetate 30 meq In Amino Acid 5%-D15w 1,000 ml @ 85 mls/hr IV .BY DURATION [facility] Rx#: [id number] Parenteral Electrolytes 85 20 ml Sodium Acetate 30 meq Potassium Chloride 20 meq In Amino Acid 5%- D15w 1,000 ml @ 85 mls/hr IV .BY DURATION [facility] Rx#: [id number] Tube Feeding 30 Blood Product 620 Rc As-1 Unit 310 [id number] Rc As-1 Unit 310 [id number] Output: Gastric Drainage 200 Urine 20 0 Other 3000 Other: Voiding Method Indwelling Catheter Indwelling Catheter # Voids 0 0 ABP, PAP, CO, CI - Last Documented Arterial Blood Pressure 124/59 - Labs CBC & Chem 7: 12/02/18 05:20 12/02/18 05:20 Labs: Abnormal Lab Results - Last 24 Hours (Table) 12/01/18 12/01/18 12/01/18 Range/Units 05:52 10:25 12:40 WBC (3.8-10.6) k/uL RBC (3.80-5.40) m/uL Hgb (11.4-16.0) gm/dL Hct (34.0-46.0) % RDW (11.5-15.5) % Plt Count (150-450) k/uL Neutrophils # (Manual) (1.3-7.7) k/uL Monocytes # (Manual) (0-1.0) k/uL Myelocytes # (Manual) (0) k/uL Nucleated RBCs (0-0) /100 WBC APTT (22.0-30.0) sec Sodium (137-145) mmol/L Potassium (3.5-5.1) mmol/L BUN (7-17) mg/dL Creatinine (0.52-1.04) mg/dL Glucose (74-99) mg/dL POC Glucose (mg/dL) 110 H 177 H (75-99) mg/dL Calcium (8.4-10.2) mg/dL ALT (9-52) U/L Total Protein (6.3-8.2) g/dL Albumin (3.5-5.0) g/dL Crossmatch See Detail 12/01/18 12/01/18 12/01/18 Range/Units 13:45 15:05 16:10 WBC (3.8-10.6) k/uL RBC (3.80-5.40) m/uL Hgb (11.4-16.0) gm/dL Hct (34.0-46.0) % RDW (11.5-15.5) % Plt Count (150-450) k/uL Neutrophils # (Manual) (1.3-7.7) k/uL Monocytes # (Manual) (0-1.0) k/uL Myelocytes # (Manual) (0) k/uL Nucleated RBCs (0-0) /100 WBC APTT (22.0-30.0) sec Sodium (137-145) mmol/L Potassium (3.5-5.1) mmol/L BUN (7-17) mg/dL Creatinine (0.52-1.04) mg/dL Glucose (74-99) mg/dL POC Glucose (mg/dL) 168 H 181 H 159 H (75-99) mg/dL Calcium (8.4-10.2) mg/dL ALT (9-52) U/L Total Protein (6.3-8.2) g/dL Albumin (3.5-5.0) g/dL Crossmatch 12/01/18 12/01/18 12/01/18 Range/Units 17:39 18:41 20:26 WBC (3.8-10.6) k/uL RBC (3.80-5.40) m/uL Hgb (11.4-16.0) gm/dL Hct (34.0-46.0) % RDW (11.5-15.5) % Plt Count (150-450) k/uL Neutrophils # (Manual) (1.3-7.7) k/uL Monocytes # (Manual) (0-1.0) k/uL Myelocytes # (Manual) (0) k/uL Nucleated RBCs (0-0) /100 WBC APTT (22.0-30.0) sec Sodium (137-145) mmol/L Potassium (3.5-5.1) mmol/L BUN (7-17) mg/dL Creatinine (0.52-1.04) mg/dL Glucose (74-99) mg/dL POC Glucose (mg/dL) 133 H 147 H 150 H (75-99) mg/dL Calcium (8.4-10.2) mg/dL ALT (9-52) U/L Total Protein (6.3-8.2) g/dL Albumin (3.5-5.0) g/dL Crossmatch 12/01/18 12/01/18 12/01/18 Range/Units 21:56 23:35 23:41 WBC (3.8-10.6) k/uL RBC (3.80-5.40) m/uL Hgb (11.4-16.0) gm/dL Hct (34.0-46.0) % RDW (11.5-15.5) % Plt Count (150-450) k/uL Neutrophils # (Manual) (1.3-7.7) k/uL Monocytes # (Manual) (0-1.0) k/uL Myelocytes # (Manual) (0) k/uL Nucleated RBCs (0-0) /100 WBC APTT 62.6 H (22.0-30.0) sec Sodium (137-145) mmol/L Potassium (3.5-5.1) mmol/L BUN (7-17) mg/dL Creatinine (0.52-1.04) mg/dL Glucose (74-99) mg/dL POC Glucose (mg/dL) 139 H 130 H (75-99) mg/dL Calcium (8.4-10.2) mg/dL ALT (9-52) U/L Total Protein (6.3-8.2) g/dL Albumin (3.5-5.0) g/dL Crossmatch 12/02/18 12/02/18 12/02/18 Range/Units 00:45 02:17 04:17 WBC (3.8-10.6) k/uL RBC (3.80-5.40) m/uL Hgb (11.4-16.0) gm/dL Hct (34.0-46.0) % RDW (11.5-15.5) % Plt Count (150-450) k/uL Neutrophils # (Manual) (1.3-7.7) k/uL Monocytes # (Manual) (0-1.0) k/uL Myelocytes # (Manual) (0) k/uL Nucleated RBCs (0-0) /100 WBC APTT (22.0-30.0) sec Sodium (137-145) mmol/L Potassium (3.5-5.1) mmol/L BUN (7-17) mg/dL Creatinine (0.52-1.04) mg/dL Glucose (74-99) mg/dL POC Glucose (mg/dL) 135 H 172 H 190 H (75-99) mg/dL Calcium (8.4-10.2) mg/dL ALT (9-52) U/L Total Protein (6.3-8.2) g/dL Albumin (3.5-5.0) g/dL Crossmatch 12/02/18 12/02/18 12/02/18 Range/Units 05:20 05:20 05:20 WBC 15.9 H (3.8-10.6) k/uL RBC 2.38 L (3.80-5.40) m/uL Hgb 7.4 L (11.4-16.0) gm/dL Hct 22.4 L (34.0-46.0) % RDW 22.4 H (11.5-15.5) % Plt Count 84 L (150-450) k/uL Neutrophils # (Manual) 12.00 H (1.3-7.7) k/uL Monocytes # (Manual) 1.27 H (0-1.0) k/uL Myelocytes # (Manual) 0.32 H (0) k/uL Nucleated RBCs 4 H (0-0) /100 WBC APTT 47.1 H (22.0-30.0) sec Sodium 133 L (137-145) mmol/L Potassium 3.4 L (3.5-5.1) mmol/L BUN 83 H (7-17) mg/dL Creatinine 2.48 H (0.52-1.04) mg/dL Glucose 179 H (74-99) mg/dL POC Glucose (mg/dL) (75-99) mg/dL Calcium 7.7 L (8.4-10.2) mg/dL ALT 54 H (9-52) U/L Total Protein 3.7 L (6.3-8.2) g/dL Albumin 1.8 L (3.5-5.0) g/dL Crossmatch 12/02/18 12/02/18 Range/Units 05:58 09:19 WBC (3.8-10.6) k/uL RBC (3.80-5.40) m/uL Hgb (11.4-16.0) gm/dL Hct (34.0-46.0) % RDW (11.5-15.5) % Plt Count (150-450) k/uL Neutrophils # (Manual) (1.3-7.7) k/uL Monocytes # (Manual) (0-1.0) k/uL Myelocytes # (Manual) (0) k/uL Nucleated RBCs (0-0) /100 WBC APTT (22.0-30.0) sec Sodium (137-145) mmol/L Potassium (3.5-5.1) mmol/L BUN (7-17) mg/dL Creatinine (0.52-1.04) mg/dL Glucose (74-99) mg/dL POC Glucose (mg/dL) 184 H 130 H (75-99) mg/dL Calcium (8.4-10.2) mg/dL ALT (9-52) U/L Total Protein (6.3-8.2) g/dL Albumin (3.5-5.0) g/dL Crossmatch Assessment and Plan Plan: Assessment: 1. Acute kidney injury secondary to ATN secondary to hypotension. Creatinine peaked at 5.85 and November 07 and was also oliguric. Currently hemodialysis dependent. No hydronephrosis noted on renal ultrasound. 2. Chronic kidney disease stage IV secondary to diabetic kidney disease and nephrosclerosis with baseline creatinine near 3 according to the patient. Patient follows with a assessment nurse practitioner out of [place]. 3. Systolic CHF with ejection fraction of 30-35% with severe pulmonary hypertension and moderate tricuspid regurgitation. 4. Volume overload. 5. Hyponatremia secondary to acute kidney injury. She is hypervolemic. 6. Hyperkalemia secondary to acute kidney injury. Improved with dialysis. Now hypokalemic. 7. Diabetes mellitus. 8. Hypotension, currently on 30 mics of Levophed. 9. Hyperphosphatemia secondary to acute kidney injury. Better. 10. Acute blood loss anemia secondary to GI bleed. Status post blood transfusion and IV DDAVP on November 10. Status post EGD on November 10 which revealed ischemic areas in the antrum. Status post blood transfusion yesterday. 11. Status post tracheostomy. Plan: Continue with daily dialysis. Overall prognosis poor. Replace potassium. 40 mEq today.
--- NOTE | 2018-12-02 10:33 | P.PN ---
<Yesenia Gutierrez A - Last Filed: 12/02/18 10:30> Subjective Progress Note Date: 12/02/18 HISTORY OF PRESENT ILLNESS: Patient examined at the bedside. She remains in ICU. Patient s/p EGD which did not reveal evidence of upper GI bleed. Patients hemoglobin is 7.4. Tube feedings on hold due to high residual. NG to LIS currently. Per nursing, patient is expressing she does not want to continue with any treatment. Family has been updated of patients wishes. PHYSICAL EXAM: VITAL SIGNS: Currently stable. GENERAL: Well-developed in no acute distress. HEENT: Trach noted. No sclera icterus. Extraocular movements grossly intact. Moist buccal mucosa. Head is atraumatic, normocephalic. No nasal drainage. NECK: Supple without lymphadenopathy. CHEST: Non-labored respirations and equal bilateral excursions. Trach to vent. CARDIOVASCULAR: Irregular rhythm. ABDOMEN: Obese. Soft. Positive bowel sounds. MUSCULOSKELETAL: Right toes necrotic. Edema present to bilateral upper extremities. NEUROLOGIC: No focal or lateralizing signs. Cranial nerves II through XII grossly intact. ASSESSMENT: 1. Anemia, s/p EGD which was negative for upper GI bleed 2. Inability to tolerable tube feedings, possible ileus PLAN: 1. Continue to monitor hemoglobin 2. Continue TPN 3. Continue to hold tube feedings 4. Continue NG to LIS 5. Possible comfort care measures. Will defer to director telecommunications Nurse practitioner note has been reviewed by physician. Signing provider agrees with the documented findings, assessment, and plan of care. Objective - Vital Signs Vital signs: Vital Signs Temp 97.6 F 12/02/18 08:00 Pulse 112 H 12/02/18 10:00 Resp 23 12/02/18 10:00 BP 89/52 12/01/18 11:58 Pulse Ox 98 12/02/18 10:00 Intake & Output 12/01/18 12/02/18 12/02/18 18:59 06:59 18:59 Intake Total 0433.561 3520.591 337.671 Output Total 3220 0 Balance -7822.155 1353.591 337.671 Weight 132.8 kg 132.5 kg Intake: IV 601 301 21 0.9 Pressure 36 36 6 Cefepime 1 gm In Sodium 50 Chloride 0.9% 50 ml @ 100 mls/hr IVPB Q24HR [facility] Rx #:[id number] Parenteral Electrolytes 400 20 ml Sodium Acetate 20 meq In Amino Acid 5%-D15w 1,000 ml @ 80 mls/hr IV .BY DURATION [facility] Rx#: [id number] Sodium Chloride 0.9% 1, 15 165 15 000 ml @ 10 mls/hr IV . Q24H [facility] Rx#:[id number] metroNIDAZOLE-NS PMX 500 100 100 mg In Saline 1 100ml.bag @ 100 mls/hr IVPB Q8HR [facility] Rx#:[id number] Intake, IV Titration 454.122 5152.591 316.671 Amount Heparin Sod,Pork in 0.45% 62.833 52.317 NaCl 25,000 unit In 0.45 % NaCl 1 250ml.bag @ 7. 531 UNITS/KG/HR 10 mls/hr IV .Q24H [facility] Rx#: [id number] Insulin Regular 100 unit 80.251 81.617 In Sodium Chloride 0.9% 100 ml @ Per Protocol IV .Q0M [facility] Rx#:[id number] Mvi, Adult No.4 with Vit 85 K 10 ml Trace (Conc-1Ml/ Dose) 1 ml Parenteral Electrolytes 20 ml Sodium Acetate 30 meq In Amino Acid 5%-D15w 1,000 ml @ 80 mls/hr IV .BY DURATION [facility] Rx#:[id number] Mvi, Adult No.4 with Vit 425 340 K 10 ml Trace (Conc-1Ml/ Dose) 1 ml Parenteral Electrolytes 20 ml Sodium Acetate 30 meq In Amino Acid 5%-D15w 1,000 ml @ 85 mls/hr IV .BY DURATION [facility] Rx#:[id number] Norepinephrine 32 mg In 58.873 102.141 94.354 Sodium Chloride 0.9% 250 ml @ 0.1 MCG/KG/MIN 6 mls /hr IV .Q24H [facility] Rx#: [id number] Parenteral Electrolytes 170 20 ml Sodium Acetate 30 meq In Amino Acid 5%-D15w 1,000 ml @ 80 mls/hr IV .BY DURATION [facility] Rx#: [id number] Parenteral Electrolytes 85 510 85 20 ml Sodium Acetate 30 meq In Amino Acid 5%-D15w 1,000 ml @ 85 mls/hr IV .BY DURATION [facility] Rx#: [id number] Parenteral Electrolytes 85 20 ml Sodium Acetate 30 meq Potassium Chloride 20 meq In Amino Acid 5%- D15w 1,000 ml @ 85 mls/hr IV .BY DURATION [facility] Rx#: [id number] Tube Feeding 30 Blood Product 620 Rc As-1 Unit 310 [id number] Rc As-1 Unit 310 [id number] Output: Gastric Drainage 200 Urine 20 0 Other 3000 Other: Voiding Method Indwelling Catheter Indwelling Catheter # Voids 0 0 ABP, PAP, CO, CI - Last Documented Arterial Blood Pressure 124/59 - Labs CBC & Chem 7: 12/02/18 05:20 12/02/18 05:20 Labs: Abnormal Lab Results - Last 24 Hours (Table) 12/01/18 12/01/18 12/01/18 Range/Units 05:52 10:25 12:40 WBC (3.8-10.6) k/uL RBC (3.80-5.40) m/uL Hgb (11.4-16.0) gm/dL Hct (34.0-46.0) % RDW (11.5-15.5) % Plt Count (150-450) k/uL Neutrophils # (Manual) (1.3-7.7) k/uL Monocytes # (Manual) (0-1.0) k/uL Myelocytes # (Manual) (0) k/uL Nucleated RBCs (0-0) /100 WBC APTT (22.0-30.0) sec Sodium (137-145) mmol/L Potassium (3.5-5.1) mmol/L BUN (7-17) mg/dL Creatinine (0.52-1.04) mg/dL Glucose (74-99) mg/dL POC Glucose (mg/dL) 110 H 177 H (75-99) mg/dL Calcium (8.4-10.2) mg/dL ALT (9-52) U/L Total Protein (6.3-8.2) g/dL Albumin (3.5-5.0) g/dL Crossmatch See Detail 12/01/18 12/01/18 12/01/18 Range/Units 13:45 15:05 16:10 WBC (3.8-10.6) k/uL RBC (3.80-5.40) m/uL Hgb (11.4-16.0) gm/dL Hct (34.0-46.0) % RDW (11.5-15.5) % Plt Count (150-450) k/uL Neutrophils # (Manual) (1.3-7.7) k/uL Monocytes # (Manual) (0-1.0) k/uL Myelocytes # (Manual) (0) k/uL Nucleated RBCs (0-0) /100 WBC APTT (22.0-30.0) sec Sodium (137-145) mmol/L Potassium (3.5-5.1) mmol/L BUN (7-17) mg/dL Creatinine (0.52-1.04) mg/dL Glucose (74-99) mg/dL POC Glucose (mg/dL) 168 H 181 H 159 H (75-99) mg/dL Calcium (8.4-10.2) mg/dL ALT (9-52) U/L Total Protein (6.3-8.2) g/dL Albumin (3.5-5.0) g/dL Crossmatch 12/01/18 12/01/18 12/01/18 Range/Units 17:39 18:41 20:26 WBC (3.8-10.6) k/uL RBC (3.80-5.40) m/uL Hgb (11.4-16.0) gm/dL Hct (34.0-46.0) % RDW (11.5-15.5) % Plt Count (150-450) k/uL Neutrophils # (Manual) (1.3-7.7) k/uL Monocytes # (Manual) (0-1.0) k/uL Myelocytes # (Manual) (0) k/uL Nucleated RBCs (0-0) /100 WBC APTT (22.0-30.0) sec Sodium (137-145) mmol/L Potassium (3.5-5.1) mmol/L BUN (7-17) mg/dL Creatinine (0.52-1.04) mg/dL Glucose (74-99) mg/dL POC Glucose (mg/dL) 133 H 147 H 150 H (75-99) mg/dL Calcium (8.4-10.2) mg/dL ALT (9-52) U/L Total Protein (6.3-8.2) g/dL Albumin (3.5-5.0) g/dL Crossmatch 12/01/18 12/01/18 12/01/18 Range/Units 21:56 23:35 23:41 WBC (3.8-10.6) k/uL RBC (3.80-5.40) m/uL Hgb (11.4-16.0) gm/dL Hct (34.0-46.0) % RDW (11.5-15.5) % Plt Count (150-450) k/uL Neutrophils # (Manual) (1.3-7.7) k/uL Monocytes # (Manual) (0-1.0) k/uL Myelocytes # (Manual) (0) k/uL Nucleated RBCs (0-0) /100 WBC APTT 62.6 H (22.0-30.0) sec Sodium (137-145) mmol/L Potassium (3.5-5.1) mmol/L BUN (7-17) mg/dL Creatinine (0.52-1.04) mg/dL Glucose (74-99) mg/dL POC Glucose (mg/dL) 139 H 130 H (75-99) mg/dL Calcium (8.4-10.2) mg/dL ALT (9-52) U/L Total Protein (6.3-8.2) g/dL Albumin (3.5-5.0) g/dL Crossmatch 12/02/18 12/02/18 12/02/18 Range/Units 00:45 02:17 04:17 WBC (3.8-10.6) k/uL RBC (3.80-5.40) m/uL Hgb (11.4-16.0) gm/dL Hct (34.0-46.0) % RDW (11.5-15.5) % Plt Count (150-450) k/uL Neutrophils # (Manual) (1.3-7.7) k/uL Monocytes # (Manual) (0-1.0) k/uL Myelocytes # (Manual) (0) k/uL Nucleated RBCs (0-0) /100 WBC APTT (22.0-30.0) sec Sodium (137-145) mmol/L Potassium (3.5-5.1) mmol/L BUN (7-17) mg/dL Creatinine (0.52-1.04) mg/dL Glucose (74-99) mg/dL POC Glucose (mg/dL) 135 H 172 H 190 H (75-99) mg/dL Calcium (8.4-10.2) mg/dL ALT (9-52) U/L Total Protein (6.3-8.2) g/dL Albumin (3.5-5.0) g/dL Crossmatch 12/02/18 12/02/18 12/02/18 Range/Units 05:20 05:20 05:20 WBC 15.9 H (3.8-10.6) k/uL RBC 2.38 L (3.80-5.40) m/uL Hgb 7.4 L (11.4-16.0) gm/dL Hct 22.4 L (34.0-46.0) % RDW 22.4 H (11.5-15.5) % Plt Count 84 L (150-450) k/uL Neutrophils # (Manual) 12.00 H (1.3-7.7) k/uL Monocytes # (Manual) 1.27 H (0-1.0) k/uL Myelocytes # (Manual) 0.32 H (0) k/uL Nucleated RBCs 4 H (0-0) /100 WBC APTT 47.1 H (22.0-30.0) sec Sodium 133 L (137-145) mmol/L Potassium 3.4 L (3.5-5.1) mmol/L BUN 83 H (7-17) mg/dL Creatinine 2.48 H (0.52-1.04) mg/dL Glucose 179 H (74-99) mg/dL POC Glucose (mg/dL) (75-99) mg/dL Calcium 7.7 L (8.4-10.2) mg/dL ALT 54 H (9-52) U/L Total Protein 3.7 L (6.3-8.2) g/dL Albumin 1.8 L (3.5-5.0) g/dL Crossmatch 12/02/18 12/02/18 Range/Units 05:58 09:19 WBC (3.8-10.6) k/uL RBC (3.80-5.40) m/uL Hgb (11.4-16.0) gm/dL Hct (34.0-46.0) % RDW (11.5-15.5) % Plt Count (150-450) k/uL Neutrophils # (Manual) (1.3-7.7) k/uL Monocytes # (Manual) (0-1.0) k/uL Myelocytes # (Manual) (0) k/uL Nucleated RBCs (0-0) /100 WBC APTT (22.0-30.0) sec Sodium (137-145) mmol/L Potassium (3.5-5.1) mmol/L BUN (7-17) mg/dL Creatinine (0.52-1.04) mg/dL Glucose (74-99) mg/dL POC Glucose (mg/dL) 184 H 130 H (75-99) mg/dL Calcium (8.4-10.2) mg/dL ALT (9-52) U/L Total Protein (6.3-8.2) g/dL Albumin (3.5-5.0) g/dL Crossmatch <Tito Silva - Last Filed: 12/02/18 16:38> Subjective As above. Patient much more alert on the ventilator today. Patient has expressed her interest to hold off on any further intervention. Family discussing hospice measures at this time. Continue nasogastric tube to suction for now. Objective - Vital Signs Vital signs: Vital Signs Temp 97.6 F 12/02/18 08:00 Pulse 0 L 12/02/18 15:30 Resp 87 H 12/02/18 15:30 BP 119/57 12/02/18 14:30 Pulse Ox 95 12/02/18 15:30 Intake & Output 12/01/18 12/02/18 12/02/18 18:59 06:59 18:59 Intake Total 6086.955 2027.591 967.117 Output Total 3220 0 0 Balance -5077.072 5780.591 967.117 Weight 132.8 kg 132.5 kg 132.5 kg Intake: IV 601 301 36 0.9 Pressure 36 36 21 Cefepime 1 gm In Sodium 50 Chloride 0.9% 50 ml @ 100 mls/hr IVPB Q24HR [facility] Rx #:[id number] Parenteral Electrolytes 400 20 ml Sodium Acetate 20 meq In Amino Acid 5%-D15w 1,000 ml @ 80 mls/hr IV .BY DURATION [facility] Rx#: [id number] Sodium Chloride 0.9% 1, 15 165 15 000 ml @ 10 mls/hr IV . Q24H [facility] Rx#:[id number] metroNIDAZOLE-NS PMX 500 100 100 mg In Saline 1 100ml.bag @ 100 mls/hr IVPB Q8HR [facility] Rx#:[id number] Intake, IV Titration 096.690 9288.591 931.117 Amount Heparin Sod,Pork in 0.45% 62.833 92.216 NaCl 25,000 unit In 0.45 % NaCl 1 250ml.bag @ 7. 531 UNITS/KG/HR 10 mls/hr IV .Q24H [facility] Rx#: [id number] Insulin Regular 100 unit 80.251 81.617 102.900 In Sodium Chloride 0.9% 100 ml @ Per Protocol IV .Q0M [facility] Rx#:[id number] Morphine Sulfate (100 mg/ 6.647 2 ml) 100 mg In Sodium Chloride 0.9% 100 ml @ 2 MG/HR 2.04 mls/hr IV . Q24H [facility] Rx#:[id number] Mvi, Adult No.4 with Vit 85 K 10 ml Trace (Conc-1Ml/ Dose) 1 ml Parenteral Electrolytes 20 ml Sodium Acetate 30 meq In Amino Acid 5%-D15w 1,000 ml @ 80 mls/hr IV .BY DURATION [facility] Rx#:[id number] Mvi, Adult No.4 with Vit 425 340 K 10 ml Trace (Conc-1Ml/ Dose) 1 ml Parenteral Electrolytes 20 ml Sodium Acetate 30 meq In Amino Acid 5%-D15w 1,000 ml @ 85 mls/hr IV .BY DURATION [facility] Rx#:[id number] Norepinephrine 32 mg In 58.873 102.141 94.354 Sodium Chloride 0.9% 250 ml @ 0.1 MCG/KG/MIN 6 mls /hr IV .Q24H [facility] Rx#: [id number] Parenteral Electrolytes 170 20 ml Sodium Acetate 30 meq In Amino Acid 5%-D15w 1,000 ml @ 80 mls/hr IV .BY DURATION [facility] Rx#: [id number] Parenteral Electrolytes 85 510 85 20 ml Sodium Acetate 30 meq In Amino Acid 5%-D15w 1,000 ml @ 85 mls/hr IV .BY DURATION [facility] Rx#: [id number] Parenteral Electrolytes 510 20 ml Sodium Acetate 30 meq Potassium Chloride 20 meq In Amino Acid 5%- D15w 1,000 ml @ 85 mls/hr IV .BY DURATION [facility] Rx#: [id number] Sodium Chloride 0.9% 1, 40 000 ml @ 10 mls/hr IV . Q24H [facility] Rx#:[id number] Tube Feeding 30 Blood Product 620 Rc As-1 Unit 310 [id number] Rc As-1 Unit 310 [id number] Output: Gastric Drainage 200 Urine 20 0 0 Other 3000 Other: Voiding Method Indwelling Catheter Indwelling Catheter Indwelling Catheter # Voids 0 0 ABP, PAP, CO, CI - Last Documented Arterial Blood Pressure - Labs CBC & Chem 7: 12/02/18 05:20 12/02/18 05:20 Labs: Abnormal Lab Results - Last 24 Hours (Table) 12/01/18 12/01/18 12/01/18 Range/Units 17:39 18:41 20:26 WBC (3.8-10.6) k/uL RBC (3.80-5.40) m/uL Hgb (11.4-16.0) gm/dL Hct (34.0-46.0) % RDW (11.5-15.5) % Plt Count (150-450) k/uL Neutrophils # (Manual) (1.3-7.7) k/uL Monocytes # (Manual) (0-1.0) k/uL Myelocytes # (Manual) (0) k/uL Nucleated RBCs (0-0) /100 WBC APTT (22.0-30.0) sec Sodium (137-145) mmol/L Potassium (3.5-5.1) mmol/L BUN (7-17) mg/dL Creatinine (0.52-1.04) mg/dL Glucose (74-99) mg/dL POC Glucose (mg/dL) 133 H 147 H 150 H (75-99) mg/dL Calcium (8.4-10.2) mg/dL ALT (9-52) U/L Total Protein (6.3-8.2) g/dL Albumin (3.5-5.0) g/dL 12/01/18 12/01/18 12/01/18 Range/Units 21:56 23:35 23:41 WBC (3.8-10.6) k/uL RBC (3.80-5.40) m/uL Hgb (11.4-16.0) gm/dL Hct (34.0-46.0) % RDW (11.5-15.5) % Plt Count (150-450) k/uL Neutrophils # (Manual) (1.3-7.7) k/uL Monocytes # (Manual) (0-1.0) k/uL Myelocytes # (Manual) (0) k/uL Nucleated RBCs (0-0) /100 WBC APTT 62.6 H (22.0-30.0) sec Sodium (137-145) mmol/L Potassium (3.5-5.1) mmol/L BUN (7-17) mg/dL Creatinine (0.52-1.04) mg/dL Glucose (74-99) mg/dL POC Glucose (mg/dL) 139 H 130 H (75-99) mg/dL Calcium (8.4-10.2) mg/dL ALT (9-52) U/L Total Protein (6.3-8.2) g/dL Albumin (3.5-5.0) g/dL 12/02/18 12/02/18 12/02/18 Range/Units 00:45 02:17 04:17 WBC (3.8-10.6) k/uL RBC (3.80-5.40) m/uL Hgb (11.4-16.0) gm/dL Hct (34.0-46.0) % RDW (11.5-15.5) % Plt Count (150-450) k/uL Neutrophils # (Manual) (1.3-7.7) k/uL Monocytes # (Manual) (0-1.0) k/uL Myelocytes # (Manual) (0) k/uL Nucleated RBCs (0-0) /100 WBC APTT (22.0-30.0) sec Sodium (137-145) mmol/L Potassium (3.5-5.1) mmol/L BUN (7-17) mg/dL Creatinine (0.52-1.04) mg/dL Glucose (74-99) mg/dL POC Glucose (mg/dL) 135 H 172 H 190 H (75-99) mg/dL Calcium (8.4-10.2) mg/dL ALT (9-52) U/L Total Protein (6.3-8.2) g/dL Albumin (3.5-5.0) g/dL 12/02/18 12/02/18 12/02/18 Range/Units 05:20 05:20 05:20 WBC 15.9 H (3.8-10.6) k/uL RBC 2.38 L (3.80-5.40) m/uL Hgb 7.4 L (11.4-16.0) gm/dL Hct 22.4 L (34.0-46.0) % RDW 22.4 H (11.5-15.5) % Plt Count 84 L (150-450) k/uL Neutrophils # (Manual) 12.00 H (1.3-7.7) k/uL Monocytes # (Manual) 1.27 H (0-1.0) k/uL Myelocytes # (Manual) 0.32 H (0) k/uL Nucleated RBCs 4 H (0-0) /100 WBC APTT 47.1 H (22.0-30.0) sec Sodium 133 L (137-145) mmol/L Potassium 3.4 L (3.5-5.1) mmol/L BUN 83 H (7-17) mg/dL Creatinine 2.48 H (0.52-1.04) mg/dL Glucose 179 H (74-99) mg/dL POC Glucose (mg/dL) (75-99) mg/dL Calcium 7.7 L (8.4-10.2) mg/dL ALT 54 H (9-52) U/L Total Protein 3.7 L (6.3-8.2) g/dL Albumin 1.8 L (3.5-5.0) g/dL 12/02/18 12/02/18 12/02/18 Range/Units 05:58 09:19 10:46 WBC (3.8-10.6) k/uL RBC (3.80-5.40) m/uL Hgb (11.4-16.0) gm/dL Hct (34.0-46.0) % RDW (11.5-15.5) % Plt Count (150-450) k/uL Neutrophils # (Manual) (1.3-7.7) k/uL Monocytes # (Manual) (0-1.0) k/uL Myelocytes # (Manual) (0) k/uL Nucleated RBCs (0-0) /100 WBC APTT (22.0-30.0) sec Sodium (137-145) mmol/L Potassium (3.5-5.1) mmol/L BUN (7-17) mg/dL Creatinine (0.52-1.04) mg/dL Glucose (74-99) mg/dL POC Glucose (mg/dL) 184 H 130 H 187 H (75-99) mg/dL Calcium (8.4-10.2) mg/dL ALT (9-52) U/L Total Protein (6.3-8.2) g/dL Albumin (3.5-5.0) g/dL 12/02/18 Range/Units 11:52 WBC (3.8-10.6) k/uL RBC (3.80-5.40) m/uL Hgb (11.4-16.0) gm/dL Hct (34.0-46.0) % RDW (11.5-15.5) % Plt Count (150-450) k/uL Neutrophils # (Manual) (1.3-7.7) k/uL Monocytes # (Manual) (0-1.0) k/uL Myelocytes # (Manual) (0) k/uL Nucleated RBCs (0-0) /100 WBC APTT (22.0-30.0) sec Sodium (137-145) mmol/L Potassium (3.5-5.1) mmol/L BUN (7-17) mg/dL Creatinine (0.52-1.04) mg/dL Glucose (74-99) mg/dL POC Glucose (mg/dL) 183 H (75-99) mg/dL Calcium (8.4-10.2) mg/dL ALT (9-52) U/L Total Protein (6.3-8.2) g/dL Albumin (3.5-5.0) g/dL
[2018-12-02] MEDS: INSULIN REGULAR 100 UNIT in SODIUM CHLORIDE 0.9% 100 ML IV SCH (10:50)
[2018-12-02 10:59] LABS: Glucose,Whole Blood 187 mg/dL (75-99)
[2018-12-02] MEDS: PANTOPRAZOLE 40 MG/10 ML VIAL IVP SCH (11:53)
[2018-12-02] MEDS: FAT EMULSION 20% 250 ML in EMPTY BAG 1 BAG IV SCH ×2 (11:54→12:47)
[2018-12-02 12:04] LABS: Glucose,Whole Blood 183 mg/dL (75-99)
[2018-12-02] MEDS: ERGOCALCIFEROL 50,000 UNIT CAP PO SCH (12:18)
[2018-12-02] MEDS ORDERED: MIDODRINE 5 MG TAB PO SCH (12:30)
[2018-12-02] MEDS: metroNIDAZOLE-NS PMX 500 MG in SALINE 1 100ML.BAG IVPB SCH (12:47)
[2018-12-02] MEDS ORDERED: MORPHINE SULFATE 2 MG/ML SYRINGE IV PRN (13:16)
[2018-12-02] MEDS ORDERED: LORazepam 2 MG/ML INJ IV PRN (13:16)
[2018-12-02] MEDS ORDERED: MORPHINE SULFATE (100 MG/2 ML) 100 MG in SODIUM CHLORIDE 0.9% 100 ML IV SCH (13:30)
[2018-12-02] MEDS ORDERED: SCOPOLAMINE 1.5MG/72HR PATCH TRANSDERM SCH (13:30)
[2018-12-02] MEDS: ALPRAZolam 0.5 MG TAB PO PRN (13:44)
[2018-12-02 14:56] VITALS: BMI 50.1
[2018-12-02 15:45] VITALS: BP 119/57; PULSE 0; RESP 87
== END 2018-12-02 19:00 | disposition expired | DRG 4 ==
LOC: 4MS4W 14:48 → 3SCARD 18:30 → 2SICU 11-06 23:58
PROVIDERS: ADMIT Family Medicine; ATTEND Family Medicine
PROC: 5A1D70Z Performance of Urinary Filtration, Intermittent, Less than 6 Hours Per Day (ICD-10-PCS; 2018-11-07)
PROC: 02HV33Z Insertion of Infusion Device into Superior Vena Cava, Percutaneous Approach (ICD-10-PCS; 2018-11-07)
PROC: 03HY32Z Insertion of Monitoring Device into Upper Artery, Percutaneous Approach (ICD-10-PCS; 2018-11-07)
PROC: 4A133B1 Monitoring of Arterial Pressure, Peripheral, Percutaneous Approach (ICD-10-PCS; 2018-11-07)
PROC: 4A133J1 Monitoring of Arterial Pulse, Peripheral, Percutaneous Approach (ICD-10-PCS; 2018-11-07)
PROC: 30233N1 Transfusion of Nonautologous Red Blood Cells into Peripheral Vein, Percutaneous Approach (ICD-10-PCS; 2018-11-08)
PROC: 0BH17EZ Insertion of Endotracheal Airway into Trachea, Via Natural or Artificial Opening (ICD-10-PCS; 2018-11-10)
PROC: 5A1955Z Respiratory Ventilation, Greater than 96 Consecutive Hours (ICD-10-PCS; 2018-11-10)
PROC: 0DB68ZX Excision of Stomach, Via Natural or Artificial Opening Endoscopic, Diagnostic (ICD-10-PCS; 2018-11-10)
PROC: 06HN33Z Insertion of Infusion Device into Left Femoral Vein, Percutaneous Approach (ICD-10-PCS; 2018-11-11)
PROC: 05H333Z Insertion of Infusion Device into Right Innominate Vein, Percutaneous Approach (ICD-10-PCS; 2018-11-18)
PROC: 3E0336Z Introduction of Nutritional Substance into Peripheral Vein, Percutaneous Approach (ICD-10-PCS; 2018-11-23)
PROC: 5A1955Z Respiratory Ventilation, Greater than 96 Consecutive Hours (ICD-10-PCS; 2018-11-25)
PROC: 0B113F4 Bypass Trachea to Cutaneous with Tracheostomy Device, Percutaneous Approach (ICD-10-PCS; principal; 2018-11-25 15:20)
PROC: 04HY32Z Insertion of Monitoring Device into Lower Artery, Percutaneous Approach (ICD-10-PCS; 2018-11-26)
PROC: 4A133B1 Monitoring of Arterial Pressure, Peripheral, Percutaneous Approach (ICD-10-PCS; 2018-11-26)
PROC: 4A133J1 Monitoring of Arterial Pulse, Peripheral, Percutaneous Approach (ICD-10-PCS; 2018-11-26)
PROC: 02HV33Z Insertion of Infusion Device into Superior Vena Cava, Percutaneous Approach (ICD-10-PCS; 2018-11-26)
PROC: 0DJ08ZZ Inspection of Upper Intestinal Tract, Via Natural or Artificial Opening Endoscopic (ICD-10-PCS; 2018-11-28)
DX: I13.2 Hypertensive heart and chronic kidney disease with heart failure and with stage 5 chronic kidney disease, or end stage renal disease (principal); I21.4 Non-ST elevation (NSTEMI) myocardial infarction; A41.89 Other specified sepsis; R65.21 Severe sepsis with septic shock; N17.0 Acute kidney failure with tubular necrosis; G93.41 Metabolic encephalopathy; I26.99 Other pulmonary embolism without acute cor pulmonale; N18.6 End stage renal disease; K72.00 Acute and subacute hepatic failure without coma; J96.22 Acute and chronic respiratory failure with hypercapnia; J96.21 Acute and chronic respiratory failure with hypoxia; J69.0 Pneumonitis due to inhalation of food and vomit; J15.6 Pneumonia due to other Gram-negative bacteria; A41.50 Gram-negative sepsis, unspecified; E11.21 Type 2 diabetes mellitus with diabetic nephropathy; E11.22 Type 2 diabetes mellitus with diabetic chronic kidney disease; E11.40 Type 2 diabetes mellitus with diabetic neuropathy, unspecified; E11.65 Type 2 diabetes mellitus with hyperglycemia; E66.01 Morbid (severe) obesity due to excess calories; Z51.5 Encounter for palliative care; Z66 Do not resuscitate; I27.29 Other secondary pulmonary hypertension; D69.6 Thrombocytopenia, unspecified; Z86.711 Personal history of pulmonary embolism; Z86.718 Personal history of other venous thrombosis and embolism; R57.8 Other shock; I50.43 Acute on chronic combined systolic (congestive) and diastolic (congestive) heart failure; A04.72 Enterocolitis due to Clostridium difficile, not specified as recurrent; D62 Acute posthemorrhagic anemia; E87.1 Hypo-osmolality and hyponatremia; E87.4 Mixed disorder of acid-base balance; I47.1 Supraventricular tachycardia; I47.2 Ventricular tachycardia; Z99.11 Dependence on respirator [ventilator] status; K52.1 Toxic gastroenteritis and colitis; K56.7 Ileus, unspecified; K55.1 Chronic vascular disorders of intestine; J44.1 Chronic obstructive pulmonary disease with (acute) exacerbation; J44.0 Chronic obstructive pulmonary disease with (acute) lower respiratory infection; I82.431 Acute embolism and thrombosis of right popliteal vein; I48.1 Persistent atrial fibrillation; Z68.43 Body mass index [BMI] 50.0-59.9, adult; E11.52 Type 2 diabetes mellitus with diabetic peripheral angiopathy with gangrene; I07.1 Rheumatic tricuspid insufficiency; E78.5 Hyperlipidemia, unspecified; I25.10 Atherosclerotic heart disease of native coronary artery without angina pectoris; E83.39 Other disorders of phosphorus metabolism; E83.51 Hypocalcemia; E86.1 Hypovolemia; E87.5 Hyperkalemia; E87.6 Hypokalemia; F17.200 Nicotine dependence, unspecified, uncomplicated; G47.33 Obstructive sleep apnea (adult) (pediatric); I25.5 Ischemic cardiomyopathy; I25.2 Old myocardial infarction; Z95.1 Presence of aortocoronary bypass graft; Z79.899 Other long term (current) drug therapy; Z88.5 Allergy status to narcotic agent; Z88.0 Allergy status to penicillin; Z88.2 Allergy status to sulfonamides; Z99.2 Dependence on renal dialysis; Z96.41 Presence of insulin pump (external) (internal); K75.89 Other specified inflammatory liver diseases; K29.70 Gastritis, unspecified, without bleeding; I50.82 Biventricular heart failure; Z86.79 Personal history of other diseases of the circulatory system; Z82.5 Family history of asthma and other chronic lower respiratory diseases; Z82.49 Family history of ischemic heart disease and other diseases of the circulatory system; Z79.82 Long term (current) use of aspirin; Z79.4 Long term (current) use of insulin; Z79.01 Long term (current) use of anticoagulants; T46.2X5A Adverse effect of other antidysrhythmic drugs, initial encounter; T36.95XA Adverse effect of unspecified systemic antibiotic, initial encounter; Z53.09 Procedure and treatment not carried out because of other contraindication
CPT/HCPCS: 36573; 36600; 43235; 43239; 71045; 71250; 74018; 74176; 76770; 76937; 78582; 80048; 80053; 80074; 80076; 81001; 82140; 82272; 82330; 82533; 82550; 82553; 82803; 82805; 83036; 83605; 83735; 83880; 84100; 84132; 84478; 84484; 85025; 85027; 85379; 85610; 85730; 86704; 86706; 86850; 86900; 86901; 86920; 87040; 87045; 87046; 87070; 87077; 87186; 87205; 87324; 87340; 88305; 90935; 93005; 93306; 93970; 94002; 94003; 94640; 94644; 94660